=== PATIENT | female | born 1930 | race American Indian/Alaskan Native ===

== ENCOUNTER 2020-05-14 12:37 | Inpatient (IN) | payer MEDICARE, OTHER ==
[~2020-05-14] VITALS: Ht 149.9 cm; Wt 53.1 kg
--- OUTSIDE RECORDS SUMMARY | ~2020-05-14 | XMS | Encounter Summary ---
Demographics + + + | Address | [address] | | | [place] [address] | + + + | Home Phone | | + + + | Preferred Language | Unknown | + + + | Marital Status | | + + + | Restoration Affiliation | Unknown | + + + | Race | Unknown | + + + | Ethnic Group | Unknown | + + + Author + + + | Author | [facility] | | | and [place] | + + + | Organization | [facility] | | | and [place] | + + + | Address | Unknown | + + + | Phone | Unavailable | + + + Support + + +---------+ + | Name | Relationship | Address | Phone | + + +---------+ + | Amado Eller | ECON | Unknown | | + + +---------+ + | Dorizulma FerreiraYasmin | ECON | Unknown | | + + +---------+ + | Helga Hoffman | ECON | Unknown | | + + +---------+ + Care Team Providers + +------+ + | Care Valet Service Attendant Name | Role | Phone | + +------+ + PCP | Unavailable | + +------+ + Encounter Details +--------+ + + + + | Date | Type | Department | Care Team | Description | +--------+ + + + + | 03/11/ | Hospital | [facility] | Conversion | 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[facility] | Transaction, | cardiomyopathies | | | | ECHOCARDIOGRAPHY | Provider Unknown | (HCC) | | | | [address] | | | | | | [place], [place] | (Fax) | | | | | [address] | | | | | | [phone] | | | +--------+ + + + + Social History + +-------+ +--------+------+ | Tobacco Use | Types | Packs/Day | Years | Date | | | | | Used | | + +-------+ +--------+------+ | Never Assessed | | | | | + +-------+ +--------+------+ + + + | Sex Assigned at | Date Recorded | | | | + + + | Not on file | | + + + documented as of this encounter Medications at Time of Discharge + + + +---------+ + + | Medication | Sig | Dispensed | Refills | Start | End Date | | | | | | Date | | + + + +---------+ + + | furosemide (LASIX) | Take 20 mg by mouth. | | 0 | 06/07/20 | | | 20 mg tablet | | | | 14 | | + + + +---------+ + + | glipiZIDE | Take 5 mg by mouth. | | 0 | 06/07/20 | | | (GLUCOTROL) 5 mg | | | | 14 | | | tablet | | | | | | + + + +---------+ + + documented as of this encounter Plan of Treatment Not on filedocumented as of this encounter Procedures + +--------+ + + + | Procedure Name | Priori | Date/Time | Associated Diagnosis | Comments | | | ty | | | | + +--------+ + + + | ECHO COMPLETE | Routin | 03/11/2015 | | Results for this | | | e | 2:39 PM | | procedure are in the | | | | PDT | | results section. | + +--------+ + + + documented in this encounter Results ECHO Complete (03/11/2015 2:39 PM PDT) + + | Specimen | + + | | + + + + + | Impressions | Performed At | + + + | 1. Overall left ventricular systolic function is mildly impaired | | | with, an EF between 45 - 50 %. With apical akinesia. 2. There is | | | moderate pulmonary hypertension. 3. Moderate bi-atrial enlargement. | | + + + + + + | Narrative | Performed At | + + + | Patient Name: ADI ELLER Date of : 1930 | | | Performing Physician: Leandro Main | | | | | | ------REPORT ADDENDED------ INDICATIONS Other | | | cardiomyopathies CONCLUSIONS 1. Overall left | | | ventricular systolic function is mildly impaired with, an EF between | | | 45 - 50 %. With apical akinesia. 2. There is moderate pulmonary | | | hypertension. 3. Moderate bi-atrial enlargement. FINDINGS | | | -------- ECG rhythm: Sinus rhythm. Study: A 2-dimensional | | | transthoracic echocardiogram with m-mode, spectral and color flow | | | Doppler was perfomed. Study: This was a technically adequate study. | | | Left Ventricle: Overall left ventricular systolic function is mildly | | | impaired with, an EF between 45 - 50 %. Left Ventricle: Left | | | Ventricle ejection fraction by m-mode measures 59%. Left Ventricle: | | | The left ventricle is mildly dilated. Left Ventricle: Left | | | ventricular wall thickness is normal. Left Ventricle: The diastolic | | | filling pattern indicates impaired relaxation consistent with mild | | | dysfunction (Grade I), which is normal for the patient's age. Left | | | Ventricle: anterior apex - akinetic; Left Ventricle: apical septum | | | - severely hypokinetic; Left Ventricle: apex - akinetic; Left | | | Ventricle: The remaining left ventricular segments contract normally. | | | Right Ventricle: The right ventricle is normal in size. Right | | | Ventricle: The global wall thickness of the right ventricle is mildly | | | increased measuring between 5 - 10 mm. Right Ventricle: The right | | | ventricular systolic function is normal. Right Ventricle: A | | | flattened D - shaped septum is seen in systole, which is consistent | | | with right ventricular pressure overload. Left Atrium: The left | | | atrium is moderately dilated Left Atrium: , and the LA measures | | | 4.6cm. Right Atrium: The right atrium is mildly enlarged Right | | | Atrium: , and the RA measures 5.3cm. Aortic Valve: The aortic valve | | | is trileaflet and appears structurally normal. Aortic Valve: There is | | | mild aortic valve sclerosis without stenosis. Aortic Valve: The | | | aortic valve is mildly calcified. Aortic Valve: There is moderate | | | aortic regurgitation. Aortic Valve: There is no evidence of aortic | | | stenosis. Mitral Valve: The mitral valve is normal. Mitral Valve: | | | [id number]-[id number] mitral regurgitation is present Mitral Valve: , | | | predominately a centrally directed jet. Mitral Valve: Moderate mitral | | | annular calcification present. Mitral Valve: Mild thickening of the | | | anterior mitral valve leaflet. Mitral Valve: There is mild thickening | | | of the posterior mitral valve leaflet. Tricuspid Valve: The | | | tricuspid valve appears structurally normal. Tricuspid Valve: | | | [id number]-[id number] tricuspid regurgitation present. Tricuspid Valve: | | | There is moderate pulmonary hypertension. Tricuspid Valve: The right | | | ventricular systolic pressure (pulmonary artery systolic pressure), as | | | measured by Doppler, is 47 mmHg + (10 15) = 57 62 mmHg. Pulmonic | | | Valve: The pulmonic valve was not well visualized. Pulmonic Valve: | | | Moderate pulmonic regurgitation. Pericardium: There is no pericardial | | | effusion. Pericardium: No pleural effusion seen. IVC/Hepatic Veins: | | | The IVC is normal size (1.5-2.5cm) and collapses <50% with sniff, | | | consistent with central venous pressures of 10-15mmHg. Mass: No mass | | | visualized Thrombus: No clot visualized Thrombus: No vegetation | | | visualized. MEASUREMENTS LA Diam: 4.62 cm LA | | | Major: 5.40 cm EDV(Teich): 135.04 ml IVSd: 1.01 cm LVIDd: | | | 5.29 cm LVPWd: 1.14 cm LVOT Diam: 1.96 cm %FS: 28.87 % | | | EF(Teich): 55.10 % ESV(Teich): 60.63 ml IVSs: 1.21 cm | | | LVIDs: 3.76 cm LVPWs: 1.97 cm SV(Teich): 74.41 ml RA | | | Major: 5.31 cm RVIDd: 3.33 cm LVEF MOD A2C: 48.12 % SV MOD | | | A2C: 32.87 ml LVEF MOD A4C: 59.18 % SV MOD A4C: 49.67 ml | | | EF Biplane: 57.32 % LVEDV MOD BP: 81.10 ml LVESV MOD BP: | | | 34.61 ml LVEDV MOD A2C: 68.30 ml LVLd A2C: 6.94 cm LVEDV MOD | | | A4C: 83.93 ml LVLd A4C: 7.79 cm LVESV MOD A2C: 35.43 ml | | | LVLs A2C: 6.14 cm LVESV MOD A4C: 34.25 ml LVLs A4C: 6.87 cm | | | CO Biplane: 3.23 l/min HR: 69.53 BPM R-R: 862.88 ms | | | LAESV(A-L): 76.99 ml LAESV Index (A-L): 50.65 ml/m2 LAAs A2C: | | | 21.56 cm2 LAESV A-L A2C: 75.42 ml LALs A2C: 5.23 cm LAAs | | | A4C: 22.01 cm2 LAESV A-L A4C: 72.19 ml LALs A4C: 5.69 cm | | | Ao Diam: 3.12 cm AV Cusp: 1.75 cm LA Diam: 4.25 cm LA/Ao: | | | 1.36 %FS: 31.28 % EDV(Teich): 86.18 ml EF(Teich): 59.34 | | | % ESV(Teich): 35.04 ml IVSd: 1.10 cm IVSs: 1.20 cm | | | LVIDd: 4.36 cm LVIDs: 3.00 cm LVPWd: 1.00 cm LVPWs: | | | 1.40 cm SV(Teich): 51.14 ml D-E Excursion: 1.19 cm E-F Carbon: | | | 0.03 m/s EPSS: 0.96 cm IVC diameter: 2.34 cm IVC | | | collapse: 1.13 cm IVC % collapse: 49.17 % AR Dec Carbon: | | | 2.26 m/s2 AR Dec Time: 1647.45 ms AR maxP.45 mmHg AR | | | PHT: 477.76 ms AR Vmax: 3.72 m/s HR: 70.25 BPM AR maxPG: | | | 59.68 mmHg AR meanP.27 mmHg AR Vmax: 3.86 m/s AR | | | Vmean: 3.19 m/s AR VTI: 163.01 cm ARend P.04 mmHg | | | ARend Vmax: 2.78 m/s HR: 68.73 BPM AV maxP.78 mmHg AV | | | meanP.54 mmHg AV Vmax: 1.39 m/s AV Vmean: 1.03 m/s AV | | | VTI: 32.65 cm SANDOVAL Vmax: 2.13 cm2 SANDOVAL (VTI): 2.55 cm2 LVCI | | | Dopp: 3.79 l/minm2 LVCO Dopp: 5.77 l/min HR: 69.22 BPM | | | LVOT maxP.82 mmHg LVOT meanP.15 mmHg LVSI Dopp: | | | 54.85 ml/m2 LVSV Dopp: 83.37 ml LVOT Vmax: 0.97 m/s LVOT | | | Vmean: 0.69 m/s LVOT VTI: 27.38 cm MCO: 460.25 ms MR | | | maxP.71 mmHg MR Vmax: 4.17 m/s MV A Mc: 1.20 m/s MV | | | DecT: 310.43 ms MV E Mc: 0.81 m/s MV E/A Ratio: 0.67 MV | | | PHT: 92.44 ms MVA By PHT: 2.37 cm2 MV A Dur: 105.36 ms | | | Septal e': 0.03 m/s Septal E/e': 25.66 Lateral e': 0.04 m/s | | | Lateral E/e': 20.25 P Vein A: 0.26 m/s P Vein A Dur: | | | 121.99 ms P Vein D: 0.24 m/s P Vein S/D Ratio: 3.12 P Vein S: | | | 0.77 m/s PAEDP: 18.02 mmHg HR: 75.13 BPM PA maxPG: | | | 7.94 mmHg PA meanP.12 mmHg PA Vmax: 1.40 m/s PA Vmean: | | | 1.09 m/s PA VTI: 52.73 cm PRend P.02 mmHg PRend Vmax: | | | 0.86 m/s HR: 73.60 BPM PV maxP.35 mmHg PV meanPG: | | | 1.77 mmHg PV Vmax: 0.91 m/s PV Vmean: 0.63 m/s PV VTI: | | | 20.44 cm RAP: 15 mmHg RVSP: 61.76 mmHg TR maxP.76 | | | mmHg TR Vmax: 3.41 m/s TV A Mc: 0.51 m/s TV Dec Carbon: | | | 1.27 m/s2 TV Dec Time: 378.04 ms TV E Mc: 0.48 m/s TV E/A | | | Ratio: 0.94 Critical Care Transport Nurse: TS Authenticated by: Leandro | | | Jose David GUNN Report Date/Time: 03-13-2015 08:31:35 | | + + + + + | Procedure Note | + + | Hector, Rad Conversion - 06/16/2019 5:36 AM PDT Patient Name: Latrell ELLER of | | : 1930 Performing Physician: Leandro Main | | ------REPORT | | ADDENDED------INDICATIONS Other cardiomyopathies CONCLUSIONS 1. | | Overall left ventricular systolic function is mildly impaired with, an EF between 45 - | | 50 %. With apical akinesia.2. There is moderate pulmonary hypertension. 3. Moderate | | bi-atrial enlargement. FINDINGS--------ECG rhythm: Sinus rhythm.Study: A 2-dimensional | | transthoracic echocardiogram with m-mode, spectral and color flow Doppler was | | perfomed.Study: This was a technically adequate study.Left Ventricle: Overall left | | ventricular systolic function is mildly impaired with, an EF between 45 - 50 %.Left | | Ventricle: Left Ventricle ejection fraction by m-mode measures 59%.Left Ventricle: The | | left ventricle is mildly dilated.Left Ventricle: Left ventricular wall thickness is | | normal.Left Ventricle: The diastolic filling pattern indicates impaired relaxation | | consistent with mild dysfunction (Grade I), which is normal for the patient's age.Left | | Ventricle: anterior apex - akinetic;Left Ventricle: apical septum - severely | | hypokinetic;Left Ventricle: apex - akinetic;Left Ventricle: The remaining left | | ventricular segments contract normally.Right Ventricle: The right ventricle is normal in | | size.Right Ventricle: The global wall thickness of the right ventricle is mildly | | increased measuring between 5 - 10 mm.Right Ventricle: The right ventricular systolic | | function is normal.Right Ventricle: A flattened D - shaped septum is seen in systole, | | which is consistent with right ventricular pressure overload.Left Atrium: The left | | atrium is moderately dilatedLeft Atrium: , and the LA measures 4.6cm.Right Atrium: The | | right atrium is mildly enlargedRight Atrium: , and the RA measures 5.3cm.Aortic Valve: | | The aortic valve is trileaflet and appears structurally normal.Aortic Valve: There is | | mild aortic valve sclerosis without stenosis.Aortic Valve: The aortic valve is mildly | | calcified.Aortic Valve: There is moderate aortic regurgitation.Aortic Valve: There is no | | evidence of aortic stenosis.Mitral Valve: The mitral valve is normal.Mitral Valve: | | Sqcj-fw-ktldozjm mitral regurgitation is presentMitral Valve: , predominately a | | centrally directed jet.Mitral Valve: Moderate mitral annular calcification | | present.Mitral Valve: Mild thickening of the anterior mitral valve leaflet.Mitral Valve: | | There is mild thickening of the posterior mitral valve leaflet.Tricuspid Valve: The | | tricuspid valve appears structurally normal.Tricuspid Valve: Qkdj-bb-oghdschu tricuspid | | regurgitation present.Tricuspid Valve: There is moderate pulmonary | | hypertension.Tricuspid Valve: The right ventricular systolic pressure (pulmonary artery | | systolic pressure), as measured by Doppler, is 47 mmHg + (10 15) = 57 62 mmHg.Pulmonic | | Valve: The pulmonic valve was not well visualized.Pulmonic Valve: Moderate pulmonic | | regurgitation.Pericardium: There is no pericardial effusion.Pericardium: No pleural | | effusion seen.IVC/Hepatic Veins: The IVC is normal size (1.5-2.5cm) and collapses <50% | | with sniff, consistent with central venous pressures of 10-15mmHg.Mass: No mass | | visualizedThrombus: No clot visualizedThrombus: No vegetation visualized. | | MEASUREMENTS LA Diam: 4.62 cmLA Major: 5.40 cmEDV(Teich): 135.04 | | mlIVSd: 1.01 cmLVIDd: 5.29 cmLVPWd: 1.14 cmLVOT Diam: 1.96 cm%FS: 28.87 | | %EF(Teich): 55.10 %ESV(Teich): 60.63 mlIVSs: 1.21 cmLVIDs: 3.76 cmLVPWs: 1.97 | | cmSV(Teich): 74.41 mlRA Major: 5.31 cmRVIDd: 3.33 cmLVEF MOD A2C: 48.12 %SV MOD | | A2C: 32.87 mlLVEF MOD A4C: 59.18 %SV MOD A4C: 49.67 mlEF Biplane: 57.32 %LVEDV | | MOD BP: 81.10 mlLVESV MOD BP: 34.61 mlLVEDV MOD A2C: 68.30 mlLVLd A2C: 6.94 | | cmLVEDV MOD A4C: 83.93 mlLVLd A4C: 7.79 cmLVESV MOD A2C: 35.43 mlLVLs A2C: 6.14 | | cmLVESV MOD A4C: 34.25 mlLVLs A4C: 6.87 cmCO Biplane: 3.23 l/minHR: 69.53 | | BPMR-R: 862.88 msLAESV(A-L): 76.99 mlLAESV Index (A-L): 50.65 ml/m2LAAs A2C: | | 21.56 [id number] A-L A2C: 75.42 mlLALs A2C: 5.23 cmLAAs A4C: 22.01 [id number] A-L A4C: | | 72.19 mlLALs A4C: 5.69 cmAo Diam: 3.12 cmAV Cusp: 1.75 cmLA Diam: 4.25 | | cmLA/Ao: 1.36%FS: 31.28 %EDV(Teich): 86.18 mlEF(Teich): 59.34 %ESV(Teich): | | 35.04 mlIVSd: 1.10 cmIVSs: 1.20 cmLVIDd: 4.36 cmLVIDs: 3.00 cmLVPWd: 1.00 | | cmLVPWs: 1.40 cmSV(Teich): 51.14 mlD-E Excursion: 1.19 cmE-F Carbon: 0.03 | | m/sEPSS: 0.96 cmIVC diameter: 2.34 cmIVC collapse: 1.13 cmIVC % collapse: 49.17 | | %AR Dec Carbon: 2.26 m/s2AR Dec Time: 1647.45 msAR maxP.45 mmHgAR PHT: | | 477.76 msAR Vmax: 3.72 m/sHR: 70.25 BPMAR maxP.68 mmHgAR meanP.27 | | mmHgAR Vmax: 3.86 m/Loretta Vmean: 3.19 m/Loretta VTI: 163.01 cmARend P.04 | | mmHgARend Vmax: 2.78 m/sHR: 68.73 BPMAV maxP.78 mmHgAV meanP.54 mmHgAV | | Vmax: 1.39 m/Claudia Vmean: 1.03 m/Claudia VTI: 32.65 cmAVA Vmax: 2.13 cm2AVA (VTI): | | 2.55 [id number] Dopp: 3.79 [id number] Dopp: 5.77 l/minHR: 69.22 BPMLVOT maxPG: | | 3.82 mmHgLVOT meanP.15 mmHgLVSI Dopp: 54.85 ml/m2LVSV Dopp: 83.37 mlLVOT Vmax: | | 0.97 m/sLVOT Vmean: 0.69 m/sLVOT VTI: 27.38 cmMCO: 460.25 msMR maxP.71 | | mmHgMR Vmax: 4.17 m/sMV A Mc: 1.20 m/sMV DecT: 310.43 msMV E Mc: 0.81 m/sMV | | E/A Ratio: 0.67MV PHT: 92.44 msMVA By PHT: 2.37 cm2MV A Dur: 105.36 msSeptal e': | | 0.03 m/sSeptal E/e': 25.66Lateral e': 0.04 m/sLateral E/e': 20.25P Vein A: | | 0.26 m/sP Vein A Dur: 121.99 msP Vein D: 0.24 m/sP Vein S/D Ratio: 3.12P Vein S: | | 0.77 m/sPAEDP: 18.02 mmHgHR: 75.13 BPMPR maxP.94 mmHgPR meanP.12 mmHgPR | | Vmax: 1.40 m/sPR Vmean: 1.09 m/sPR VTI: 52.73 cmPRend P.02 mmHgPRend Vmax: | | 0.86 m/sHR: 73.60 BPMPV maxP.35 mmHgPV meanP.77 mmHgPV Vmax: 0.91 | | m/sPV Vmean: 0.63 m/sPV VTI: 20.44 cmRAP: 15 mmHgRVSP: 61.76 mmHgTR maxPG: | | 46.76 mmHgTR Vmax: 3.41 m/sTV A Mc: 0.51 m/sTV Dec Carbon: 1.27 m/s2TV Dec Time: | | 378.04 msTV E Mc: 0.48 m/sTV E/A Ratio: 0.94 Critical Care Transport Nurse: TSAuthenticated by: | | Leandro Main MDReport Date/Time: 03-13-2015 08:31:35 IMPRESSION: 1. Overall left | | ventricular systolic function is mildly impaired with, an EF between 45 - 50 %. With | | apical akinesia.2. There is moderate pulmonary hypertension. 3. Moderate bi-atrial | | enlargement. | |IVSs: 1.21 cm | |LVIDs: 3.76 cm | |LVPWs: 1.97 cm | |SV(Teich): 74.41 ml | |RA Major: 5.31 cm | |RVIDd: 3.33 cm | |LVEF MOD A2C: 48.12 % | |SV MOD A2C: 32.87 ml | |LVEF MOD A4C: 59.18 % | |SV MOD A4C: 49.67 ml | |EF Biplane: 57.32 % | |LVEDV MOD BP: 81.10 ml | |LVESV MOD BP: 34.61 ml | |LVEDV MOD A2C: 68.30 ml | |LVLd A2C: 6.94 cm | |LVEDV MOD A4C: 83.93 ml | |LVLd A4C: 7.79 cm | |LVESV MOD A2C: 35.43 ml | |LVLs A2C: 6.14 cm | |LVESV MOD A4C: 34.25 ml | |LVLs A4C: 6.87 cm | |CO Biplane: 3.23 l/min | |HR: 69.53 BPM | |R-R: 862.88 ms | |LAESV(A-L): 76.99 ml | |LAESV Index (A-L): 50.65 ml/m2 | |LAAs A2C: 21.56 cm2 | |LAESV A-L A2C: 75.42 ml | |LALs A2C: 5.23 cm | |LAAs A4C: 22.01 cm2 | |LAESV A-L A4C: 72.19 ml | |LALs A4C: 5.69 cm | |Ao Diam: 3.12 cm | |AV Cusp: 1.75 cm | |LA Diam: 4.25 cm | |LA/Ao: 1.36 | |%FS: 31.28 % | |EDV(Teich): 86.18 ml | |EF(Teich): 59.34 % | |ESV(Teich): 35.04 ml | |IVSd: 1.10 cm | |IVSs: 1.20 cm | |LVIDd: 4.36 cm | |LVIDs: 3.00 cm | |LVPWd: 1.00 cm | |LVPWs: 1.40 cm | |SV(Teich): 51.14 ml | |D-E Excursion: 1.19 cm | |E-F Carbon: 0.03 m/s | |EPSS: 0.96 cm | |IVC diameter: 2.34 cm | |IVC collapse: 1.13 cm | |IVC % collapse: 49.17 % | |AR Dec Carbon: 2.26 m/s2 | |AR Dec Time: 1647.45 ms | |AR maxP.45 mmHg | |AR PHT: 477.76 ms | |AR Vmax: 3.72 m/s | |HR: 70.25 BPM | |AR maxP.68 mmHg | |AR meanP.27 mmHg | |AR Vmax: 3.86 m/s | |AR Vmean: 3.19 m/s | |AR VTI: 163.01 cm | |ARend P.04 mmHg | |ARend Vmax: 2.78 m/s | |HR: 68.73 BPM | |AV maxP.78 mmHg | |AV meanP.54 mmHg | |AV Vmax: 1.39 m/s | |AV Vmean: 1.03 m/s | |AV VTI: 32.65 cm | |SANDOVAL Vmax: 2.13 cm2 | |SANDOVAL (VTI): 2.55 cm2 | |LVCI Dopp: 3.79 l/minm2 | |LVCO Dopp: 5.77 l/min | |HR: 69.22 BPM | |LVOT maxP.82 mmHg | |LVOT meanP.15 mmHg | |LVSI Dopp: 54.85 ml/m2 | |LVSV Dopp: 83.37 ml | |LVOT Vmax: 0.97 m/s | |LVOT Vmean: 0.69 m/s | |LVOT VTI: 27.38 cm | |MCO: 460.25 ms | |MR maxP.71 mmHg | |MR Vmax: 4.17 m/s | |MV A Mc: 1.20 m/s | |MV DecT: 310.43 ms | |MV E Mc: 0.81 m/s | |MV E/A Ratio: 0.67 | |MV PHT: 92.44 ms | |MVA By PHT: 2.37 cm2 | |MV A Dur: 105.36 ms | |Septal e': 0.03 m/s | |Septal E/e': 25.66 | |Lateral e': 0.04 m/s | |Lateral E/e': 20.25 | |P Vein A: 0.26 m/s | |P Vein A Dur: 121.99 ms | |P Vein D: 0.24 m/s | |P Vein S/D Ratio: 3.12 | |P Vein S: 0.77 m/s | |PAEDP: 18.02 mmHg | |HR: 75.13 BPM | |PA maxP.94 mmHg | |PA meanP.12 mmHg | |PA Vmax: 1.40 m/s | |PA Vmean: 1.09 m/s | |PA VTI: 52.73 cm | |PRend P.02 mmHg | |PRend Vmax: 0.86 m/s | |HR: 73.60 BPM | |PV maxP.35 mmHg | |PV meanP.77 mmHg | |PV Vmax: 0.91 m/s | |PV Vmean: 0.63 m/s | |PV VTI: 20.44 cm | |RAP: 15 mmHg | |RVSP: 61.76 mmHg | |TR maxP.76 mmHg | |TR Vmax: 3.41 m/s | |TV A Mc: 0.51 m/s | |TV Dec Carbon: 1.27 m/s2 | |TV Dec Time: 378.04 ms | |TV E Mc: 0.48 m/s | |TV E/A Ratio: 0.94 | | | |Critical Care Transport Nurse: TS | |Authenticated by: Leandro Main MD | |Report Date/Time: 03-13-2015 08:31:35 | | | |IMPRESSION: | |1. Overall left ventricular systolic function is mildly impaired with, an EF between 45 - 5 0 %. With apical akinesia. | |2. There is moderate pulmonary hypertension. 3. Moderate bi-atrial enlargement. | + + documented in this encounter Visit Diagnoses + + | Diagnosis | + + | Other primary cardiomyopathies | + + documented in this encounter"
--- OUTSIDE RECORDS SUMMARY | ~2020-05-14 | XMS | Encounter Summary ---
Demographics + + + | Address | [address] | | | [place] [address] | + + + | Home Phone | | + + + | Preferred Language | Unknown | + + + | Marital Status | | + + + | Uatsdin Affiliation | Unknown | + + + | Race | Unknown | + + + | Ethnic Group | Unknown | + + + Author + + + | Author | [facility] | | | and [place] | + + + | Organization | [facility] | | | and [place] | + + + | Address | Unknown | + + + | Phone | Unavailable | + + + Support + + +---------+ + | Name | Relationship | Address | Phone | + + +---------+ + | Amado Eller | ECON | Unknown | | + + +---------+ + | Dori Ferreiracomb | ECON | Unknown | | + + +---------+ + | Helga Ferre[place] | ECON | Unknown | | + + +---------+ + Care Team Providers + +------+ + | Care Payroll Accounting Specialist Name | Role | Phone | + +------+ + | Anthony Atkins DO | PCP | | + +------+ + Encounter Details +--------+ + + + + | Date | Type | Department | Care Team | Description | +--------+ + + + + | 04/10/ | Hospital | [facility] | Sebastián Julianna, | | | 2016 | Encounter | [facility] | [facility] [address] | | | | | PHYSICAL THERAPY | [place] | | | | | [address] | [address] | | | | | [place] [address] | | | | | | [phone] | | | +--------+ + + + + Social History + +-------+ +--------+------+ | Tobacco Use | Types | Packs/Day | Years | Date | | | | | Used | | + +-------+ +--------+------+ | Current Every Day | | 0.25 | 30 | | | Smoker | | | | | + +-------+ [...] + + + +---------+ + + | aspirin 81 mg | Take 1 tablet by | 30 | 0 | 04/09/20 | | | chewable tablet | mouth Daily. | tablet | | 16 | | + + + +---------+ + + | atorvaSTATin | Take 1 tablet by | 30 | 0 | 04/09/20 | | | (LIPITOR) 20 mg | mouth nightly. | tablet | | 16 | | | tablet | | | | | | + + + +---------+ + + | carvedilol (COREG) | Take 1 tablet by | 60 | 0 | 04/09/20 | | | 3.125 mg tablet | mouth 2 times daily | tablet | | 16 | | | | (with breakfast & | | | | | | | dinner). | | | | | + + + +---------+ + + | cyanocobalamin | Take 1 tablet by | 30 | 0 | 04/09/20 | | | (VITAMIN B-12) 1000 | mouth Daily. | tablet | | 16 | | | MCG tablet | | | | | | + + + +---------+ + + | docusate sodium | Take 1 capsule by | 30 | 0 | 04/09/20 | | | (COLACE) 250 MG | mouth Daily. | capsule | | 16 | | | capsule | | | | | | + + + +---------+ + + | furosemide (LASIX) | Take 20 mg by mouth. | | 0 | 06/07/20 | | | 20 mg tablet | | | | 14 | | + + + +---------+ + + | furosemide (LASIX) | Take 1 tablet by | 50 | 0 | 04/09/20 | | | 80 mg tablet | mouth Daily. | tablet | | 16 | | + + + +---------+ + + | glipiZIDE | Take 5 mg by mouth. | | 0 | 06/07/20 | | | (GLUCOTROL) 5 mg | | | | 14 | | | tablet | | | | | | + + + +---------+ + + documented as of this encounter Plan of Treatment Not on filedocumented as of this encounter Visit Diagnoses Not on filedocumented in this encounter"
--- OUTSIDE RECORDS SUMMARY | ~2020-05-14 | XMS | Encounter Summary ---
Demographics + + + | Address | [address] | | | [place] [address] | + + + | Home Phone | | + + + | Preferred Language | Unknown | + + + | Marital Status | | + + + | Confucianist Affiliation | Unknown | + + + | Race | Unknown | + + + | Ethnic Group | Unknown | + + + Author + + + | Author | [facility] | | | and [place] | + + + | Organization | [facility] | | | and [...] Team Providers + +------+ + | Care Planting Supervisor Name | Role | Phone | + +------+ + | Anthony Atkins DO | PCP | | + +------+ + Encounter Details +--------+ + + + + | Date | Type | Department | Care Team | Description | +--------+ + + + + | 05/07/ | Orders Only | [facility] | Conversion | | | 2015 | | NEPHROLOGY ÁNGEL | Transaction, | | | | | [address] | Provider Unknown | | | | | [place] | | | | | | [address] | (Fax) | | | | | [phone] | | | +--------+ + + + [...] | + +--------+ + + + | IRON AND IRON | Routin | 05/07/2015 | | Results for this | | BINDING CAPACITY | e | 12:00 AM | | procedure are in the | | | | PDT | | results section. | + +--------+ + + + | LIPID PANEL | Routin | 05/07/2015 | | Results for this | | | e | 12:00 AM | | procedure are in the | | | | PDT | | results section. | + +--------+ + + + | PARATHYROID HORMONE, | Routin | 05/07/2015 | | Results for this | | INTACT AND CALCIUM | e | 12:00 AM | | procedure are in the | | | | PDT | | results section. | + +--------+ + + + | CBC NO DIFFERENTIAL | Routin | 05/07/2015 | | Results for this | | | e | 12:00 AM | | procedure are in the | | | | PDT | | results section. | + +--------+ + + + | URIC ACID | Routin | 05/07/2015 | | Results for this | | | e | 12:00 AM | | procedure are in the | | | | PDT | | results section. | + +--------+ + + + | MAGNESIUM | Routin | 05/07/2015 | | Results for this | | | e | 12:00 AM | | procedure are in the | | | | PDT | | results section. | + +--------+ + + + | HEMOGLOBIN A1C | Routin | 05/07/2015 | | Results for this | | | e | 12:00 AM | | procedure are in the | | | | PDT | | results section. | + +--------+ + + + | FERRITIN | Routin | 05/07/2015 | | Results for this | | | e | 12:00 AM | | procedure are in the | | | | PDT | | results section. | + +--------+ + + + | RENAL FUNCTION PANEL | Routin | 05/07/2015 | | Results for this | | | e | 12:00 AM | | procedure are in the | | | | PDT | | results section. | + +--------+ + + + documented in this encounter Results CBC no Differential (05/07/2015 12:00 AM PDT) + + + + + + | Component | Value | Ref Range | Performed | Pathologist | | | | | At | Signature | + + + + + + | WBC | 8.0 | 4.0 - 11.0 10 | EXTERNAL | | | | | | LAB | | + + + + + + | Non- | 3.72 (A) | 3.8 - 5.2 10 | EXTERNAL | | | Red Blood | | | LAB | | | Cells | | | | | | Counted | | | | | + + + + + + | Hemoglobin | 9.6 (A) | 12 - 16 g/dL | EXTERNAL | | | | | | LAB | | + + + + + + | Hematocrit, | 28.8 (A) | 35 - 45 % | EXTERNAL | | | POC | | | LAB | | + + + + + + | MCV | 77.4 (A) | 81 - 99 fL | EXTERNAL | | | | | | LAB | | + + + + + + | MCH | 25.8 (A) | 27 - 33 pg | EXTERNAL | | | | | | LAB | | + + + + + + | MCHC | 33.3 | 30 - 36 g/dL | EXTERNAL | | | | | | LAB | | + + + + + + | RDW-CV | 15.8 (A) | 10.5 - 15 % | EXTERNAL | | | | | | LAB | | + + + + + + | Platelet | 238 | 140 - 440 K/ L | EXTERNAL | | | Count | | | LAB | | | Plasma | | | | | + + + + + + | MPV | | fL | EXTERNAL | | | | | | LAB | | + + + + + + + + | Specimen | + + | | + + + +---------+ + + | Performing | Address | City/State/Zipcode | Phone Number | | Organization | | | | + +---------+ + + | EXTERNAL LAB | | | | + +---------+ + + Iron and Iron Binding Capacity (05/07/2015 12:00 AM PDT) + +---------+ + + + | Component | Value | Ref Range | Performed | Pathologist | | | | | At | Signature | + +---------+ + + + | Iron | 35 (A) | 37 - 160 ug/dL | EXTERNAL | | | | | | LAB | | + +---------+ + + + | Iron | 7.3 (A) | 20 - 55 % | EXTERNAL | | | Saturation | | | LAB | | + +---------+ + + + | TIBC | 477 (A) | 245 - 400 ug/dL | EXTERNAL | | | | | | LAB | | + +---------+ + + + + + | Specimen | + + | Blood specimen | | (specimen) | + + + +---------+ + + | Performing | Address | City/State/Zipcode | Phone Number | | Organization | | | | + +---------+ + + | EXTERNAL LAB | | | | + +---------+ + + Parathyroid Hormone, Intact and Calcium (05/07/2015 12:00 AM PDT) + +---------+ + + + | Component | Value | Ref Range | Performed | Pathologist | | | | | At | Signature | + +---------+ + + + | PTH Intact | 52.57 | 15 - 65 | EXTERNAL | | | | | | LAB | | + +---------+ + + + | Calcium | 8.3 (A) | 8.4 - 10.2 | EXTERNAL | | | | | | LAB | | + +---------+ + + + + + | Specimen | + + | Blood specimen | | (specimen) | + + + +---------+ + + | Performing | Address | City/State/Zipcode | Phone Number | | Organization | | | | + +---------+ + + | EXTERNAL LAB | | | | + +---------+ + + Uric Acid (05/07/2015 12:00 AM PDT) + +---------+ + + + | Component | Value | Ref Range | Performed | Pathologist | | | | | At | Signature | + +---------+ + + + | Uric Acid | 7.3 (A) | 2.3 - 6.6 | EXTERNAL | | | | | | LAB | | + +---------+ + + + + + | Specimen | + + | Blood specimen | | (specimen) | + + + +---------+ + + | Performing | Address | City/State/Zipcode | Phone Number | | Organization | | | | + +---------+ + + | EXTERNAL LAB | | | | + +---------+ + + Magnesium (05/07/2015 12:00 AM PDT) + +-------+ + + + | Component | Value | Ref Range | Performed | Pathologist | | | | | At | Signature | + +-------+ + + + | Magnesium | 2.3 | 1.7 - 2.5 mg/dL | EXTERNAL | | | | | | LAB | | + +-------+ + + + + + | Specimen | + + | Blood specimen | | (specimen) | + + + +---------+ + + | Performing | Address | City/State/Zipcode | Phone Number | | Organization | | | | + +---------+ + + | EXTERNAL LAB | | | | + +---------+ + + Hemoglobin A1C (05/07/2015 12:00 AM PDT) + +-------+ + + + | Component | Value | Ref Range | Performed | Pathologist | | | | | At | Signature | + +-------+ + + + | Hemoglobin | 6.9 | % | EXTERNAL | | | A1c | | | LAB | | + +-------+ + + + + + | Specimen | + + | Blood specimen | | (specimen) | + + + +---------+ + + | Performing | Address | City/State/Zipcode | Phone Number | | Organization | | | | + +---------+ + + | EXTERNAL LAB | | | | + +---------+ + + Ferritin (05/07/2015 12:00 AM PDT) + + + + + + | Component | Value | Ref Range | Performed | Pathologist | | | | | At | Signature | + + + + + + | Ferritin, | 10.21 (A) | 13 - 150 ng/mL | EXTERNAL | | | External | | | LAB | | + + + + + + + + | Specimen | + + | Blood specimen | | (specimen) | + + + +---------+ + + | Performing | Address | City/State/Zipcode | Phone Number | | Organization | | | | + +---------+ + + | EXTERNAL LAB | | | | + +---------+ + + Renal Function Panel (05/07/2015 12:00 AM PDT) + + + + + + | Component | Value | Ref Range | Performed | Pathologist | | | | | At | Signature | + + + + + + | Glucose, | 84 | 70 - 100 mg/dL | EXTERNAL | | | Fasting | | | LAB | | + + + + + + | BUN | 35 (A) | 6 - 23 mg/dL | EXTERNAL | | | | | | LAB | | + + + + + + | Creatinine | 1.87 (A) | 0.70 - 1.11 | EXTERNAL | | | | | mg/dL | LAB | | + + + + + + | PHOSPHORUS | | mg/dL | EXTERNAL | | | | | | LAB | | + + + + + + | Albumin | 3.5 | 3.5 - 5.0 | EXTERNAL | | | | | | LAB | | + + + + + + | Na | 136 | 132 - 143 | EXTERNAL | | | | | mmol/L | LAB | | + + + + + + | K | 5.3 (A) | 3.6 - 5.1 | EXTERNAL | | | | | mmol/L | LAB | | + + + + + + | Cl | 110 | 95 - 112 mmol/L | EXTERNAL | | | | | | LAB | | + + + + + + | CO2 | 18 (A) | 19 - 31 mmol/L | EXTERNAL | | | | | | LAB | | + + + + + + | Anion Gap | 16.3 | 7 - 21 mmol/L | EXTERNAL | | | | | | LAB | | + + + + + + | eGFR if not | | | EXTERNAL | | | | | | LAB | | | [place] | | | | | + + + + + + | Phosphorus, | 3.8 | 2.5 - 5.0 | EXTERNAL | | | Inorganic | | | LAB | | + + + + + + | BUN/Creatin | 18.7 | 6.0 - 28.6 | EXTERNAL | | | ine Ratio | | | LAB | | + + + + + + | Calcium | 8.3 (A) | 8.4 - 10.2 | EXTERNAL | | | | | mg/dL | LAB | | + + + + + + | Estimated | 26 (A) | 60 mg/dL | EXTERNAL | | | GFR | | | LAB | | + + + + + + + + | Specimen | + + | Blood specimen | | (specimen) | + + + +---------+ + + | Performing | Address | City/State/Zipcode | Phone Number | | Organization | | | | + +---------+ + + | EXTERNAL LAB | | | | + +---------+ + + Lipid Panel (05/07/2015 12:00 AM PDT) + + + + + + | Component | Value | Ref Range | Performed | Pathologist | | | | | At | Signature | + + + + + + | Cholesterol | 148 | 200 mg/dL | EXTERNAL | | | | | | LAB | | + + + + + + | Triglycerid | 193 (A) | 30 - 105 mg/dL | EXTERNAL | | | es | | | LAB | | + + + + + + | HDL | 28.9 (A) | 40 mg/dl | EXTERNAL | | | | | | LAB | | + + + + + + | LDL, | 81 | 100 mg/dL | EXTERNAL | | | Calculated | | | LAB | | + + + + + + | LDl/HDL | | | EXTERNAL | | | Ratio | | | LAB | | + + + + + + | Chol/HDL | 5.1 (A) | 4.44 | EXTERNAL | | | Ratio | | | LAB | | + + + + + + | VLDL | 39 | 4 - 40 mg/dL | EXTERNAL | | | | | | LAB | | + + + + + + | Non HDL | 119 | 130 | EXTERNAL | | | Chol. | | | LAB | | | (LDL+VLDL) | | | | | + + + + + + + + | Specimen | + + | Blood specimen | | (specimen) | + + + +---------+ + + | Performing | Address | City/State/Zipcode | Phone Number | | Organization | | | | + +---------+ + + | EXTERNAL LAB | | | | + +---------+ + + documented in this encounter Visit Diagnoses Not on filedocumented in this encounter"
--- OUTSIDE RECORDS SUMMARY | ~2020-05-14 | XMS | Encounter Summary ---
Demographics + + + | Address | [address] | | | [place] [address] | + + + | Home Phone | | + + + | Preferred Language | Unknown | + + + | Marital Status | | + + + | Pentecostalism Affiliation | Unknown | + + + | Race | Unknown | + + + | Ethnic Group | Unknown | + + + Author + + + | Author | [facility] | | | and [place] | + + + | Organization | [facility] | | | [...] Team Providers + +------+ + | Care Public Health Social Worker Name | Role | Phone | + +------+ + | Anthony Atkins DO | PCP | | + +------+ + Encounter Details +--------+ + + + + | Date | Type | Department | Care Team | Description | +--------+ + + + + | 09/23/ | Hospital | [facility] | MiguelZana morgan | | | 2016 - | Encounter | [facility] | Nixon Krueger MD [address] | | | | [address]ISION | [address] | | | 09/25/ | | [address] | [place] [address] | | | 2015 | | [place], [place] | [phone] | | | | | [address] | | | | | | [phone] | | | +--------+ + + + [...] + + documented as of this encounter Last Filed Vital Signs + + + + + | Vital Sign | Reading | Time Taken | Comments | + + + + + | Blood Pressure | 105/53 | 09/25/2016 11:27 AM | | | | | PST | | + + + + + | Pulse | 76 | 09/25/2016 11:27 AM | | | | | PST | | + + + + + | Temperature | 36.7 C (98.1 F) | 09/25/2016 11:27 AM | | | | | PST | | + + + + + | Respiratory Rate | 17 | 09/25/2016 11:27 AM | | | | | PST | | + + + + + | Oxygen Saturation | - | - | | + + + + + | Inhaled Oxygen | - | - | | | Concentration | | | | + + + + + | Weight | 55.2 kg (121 lb 11 | 09/25/2016 11:27 AM | | | | oz) | PST | | + + + + + | Height | 149.9 cm (4' 11") | 09/25/2016 11:27 AM | | | | | PST | | + + + + + | Body Mass Index | 24.58 | 09/25/2016 11:27 AM | | | | | PST | | + + + + + documented in this encounter Discharge Summaries Anival Son MD - 09/25/2016 11:16 AM PSTFormatting of this note might be differ ent from the original. Discharge Summaries by Anival Son MD at 09/25/16 1116 Author: Anival Son MD Service: Hospitalist Author Type: Physician Filed: 09/26/16 1433 Date of Service: 09/25/166 Status: Addendum Textile Clothing And Footwear Mechanic: Anival Son MD (Physician) Related Notes: Original Note by Anival Son MD (Physician) filed at 09/25/[address] [facility] Service: Hospitalist Discharge Summary Date of Admission: 09/23/2016 Date of Discharge: Discharge Provider: Anival Son MD Treatment Team: Consulting Physician: Cyrus Gross MD Admitting Provider: Zana Rivera MD Discharge Diagnoses: Principal Problem: SOB (shortness of breath) on exertion Active Problems: DM2 (diabetes mellitus, type 2) (HCC) Anemia, iron deficiency Systolic CHF, chronic (HCC) CKD (chronic kidney disease) stage 4, GFR 15-29 ml/min (HCC) Coronary artery disease involving [place]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 Pulmonary emphysema (HCC) Smoker Resolved Problems: * No resolved hospital problems. * BRIEF HISTORY OF PRESENTATION: Alexsandra Eller is a 85 y.o. female who History of tobacco abuse, COPD, chronic systol ic congestive heart failure, iron deficiency anemia secondary to CKD and AV malformations re quiring cauterization, nonadherence to medicine, coronary artery disease, presented to the [facility] with chief complaint of shortness of breath. Prior to being admitted to the hospital she was diagnosed with acute systolic congestive he art failure and was prescribed Lasix at home. Patient reports that some of her symptoms impr mir after the initiation of Lasix, and on her followup appointment with her PCP she was fou nd to be anemic, hemoglobin of 8.2, and she was referred to [facility]. In [facility] her hemoglobin was between 8 and 9. Patient complained of some chest discomfort and diaphoresis. EKG showed some T-wave inversion in the lateral lead s. Troponin was mildly elevated at 0.5, but after transfusion of 2 units her chest discomfor t had improved significantly. The patient is currently asymptomatic. She has no peripheral e annmarie. She denies any orthopnea or PND or dyspnea on exertion, but patient is a very poor his marcia so I do not completely rely on her information. But clinically she appears to be euvo lemic. Patient is very noncompliant, extremely noncompliant with her medicines, Again, multi ple physicians have advised her to take all her medicines as prescribed. For her iron deficiency anemia, Dr. Gross evaluated the patient in the hospital and recommended outpatient followup with Dr. Gibson. There was no urgent need for colonoscopy. He believes that the most likely source for her iron deficiency anemia was AV malformations. H e advised the patient to take iron supplementation and then, if in spite of that she becomes anemic, she will need additional endoscopic procedures. For her chronic systolic heart failure, she is on optimum medical therapy with beta-brittnee s, SURESH inhibitors. I have added Lasix to her regimen. She needs to follow up with cardiology as an outpatient. PAtient did receive 450mg IV iron in the hospital and is prescribed Po iron Prescriptions prior to admission Medication Sig Dispense Refill Last Dose Ascorbic Acid (VITAMIN C) 500 MG tablet Take 1 tablet by mouth daily. 30 tablet 11 furosemide (LASIX) 20 MG tablet Take 20 mg by mouth daily. Taking glipiZIDE (GLUCOTROL) 5 MG tablet Take 5 mg by mouth 2 (two) times daily before meals. Taking lisinopril (ZESTRIL) 5 MG tablet Take 5 mg by mouth daily. Taking DISCHARGE EXAM Vital Signs: BP 129/60 mmHg | Pulse 86 | Temp(Src) 97.3 F (36.3 C) (Oral) | Resp 16 | Ht 1.499 m (4' 11") | Wt 55.2 kg (121 lb 11.1 oz) | BMI 24.57 kg/m2 | SpO2 99% | ? No Physical Exam General Appearance: awake, alert, oriented, in no acute distress Eyes: No gross abnormalities. Neck: neck- supple, no mass, non-tender Heart: Heart sounds are normal. Regular rate and rhythm without murmur, gallop or rub. Abdomen: Soft, non-tender, normal bowel sounds. No bruits, organomegaly or masses. Extremities: Extremities warm to touch, pink, with no edema. DATA Recent Labs Lab 09/25/16 0753 09/25/16 0158 09/24/16 1545 HGB 10.9* 10.8* 8.4* HCT 33.5* 33.5* 26.4* Recent Labs Lab 09/24/16 0412 NA 140 K 4.4 CL 108 CO2 22* BUN 31* CREATININE 2.0* Phosphorus: Lab Results Component Value Date PHOS 4.4 09/24/2016 Invalid input(s): LABALBU Recent Labs Lab 09/24/16 0412 MG 2.3 No results for input(s): AMYLASE in the last 168 hours. No results for input(s): PHART, PO2ART, EXZ5SPV, J0JBXVEJ, BEART in the last 168 hours. Recent Labs Lab 09/23/16 2253 INR 1.0 No results for input(s): TSH, T3FREE, FREET4 in the last 168 hours. Recent Labs Lab 09/24/16 2344 09/24/16 1737 09/24/16 1203 TROPONINI 0.282* 0.399* 0.499* Radiology No results found. Disposition: Home Condition: Stable Code Status: Full Code No discharge procedures on file. Follow [place]: [place] [address] [place] [address] In 1 week Ritesh Gibson MD [address] [facility] [address] In 2 weeks Leandro Main MD [address] [facility] [id number] In 1 month Medication List START taking these medications atorvastatin 20 MG tablet QTY: 30 tablet Refills: 11 Commonly known as: LIPITOR Take 1 tablet by mouth nightly. budesonide-formoterol 160-4.5 MCG/ACT inhaler QTY: 1 Inhaler Refills: 12 Commonly known as: SYMBICORT Inhale 2 puffs into the lungs 2 (two) times daily. cyanocobalamin 1000 MCG tablet QTY: 30 tablet Refills: 11 Commonly known as: VITAMIN B-12 Take 1 tablet by mouth daily. CHANGE how you take these medications carvedilol 6.25 MG tablet QTY: 60 tablet Refills: 3 Commonly known as: COREG Take 1 tablet by mouth 2 (two) times daily with meals. What changed: - medication strength - how much to take ferrous sulfate (65 FE) 324 (65 FE) MG EC tablet QTY: 30 tablet Refills: 3 Take 1 tablet by mouth daily with breakfast. Take on empty stomach What changed: when to take this * lisinopril 5 MG tablet Refills: 0 Commonly known as: ZESTRIL What changed: Another medication with the same name was added. Make sure you understand ho w and when to take each. * lisinopril 10 MG tablet QTY: 15 tablet Refills: 11 Commonly known as: ZESTRIL Take 0.5 tablets by mouth daily. What changed: You were already taking a medication with the same name, and this prescripti on was added. Make sure you understand how and when to take each. * Notice: This list has 2 medication(s) that are the same as other medications prescribed for you. Read the directions carefully, and ask your doctor or other care provider to revie w them with you. CONTINUE taking these medications furosemide 20 MG tablet Refills: 0 Commonly known as: LASIX glipiZIDE 5 MG tablet Refills: 0 Commonly known as: GLUCOTROL vitamin C 500 MG tablet QTY: 30 tablet Refills: 11 Take 1 tablet by mouth daily. Where to Get Your Medications You can get these medications from any pharmacy Bring a paper prescription for each of these medications - atorvastatin 20 MG tablet - budesonide-formoterol 160-4.5 MCG/ACT inhaler - carvedilol 6.25 MG tablet - cyanocobalamin 1000 MCG tablet - ferrous sulfate (65 FE) 324 (65 FE) MG EC tablet - lisinopril 10 MG tablet Discharge took 35 minutes, to include final examination, discussion of admission, and prepa ration of prescriptions, instructions for on-going care, follow-up and documentation of disc harge summary. Anival Son MD 09/25/2016 11:16 AM documented in this encounter Medications at Time of Discharge + + + +---------+ + + | Medication | Sig | Dispensed | Refills | Start | End Date | | | | | | Date | | + + + +---------+ + + | ascorbic acid | Take 500 mg by | | 0 | 09/25/20 | | | (VITAMIN C) 500 mg | mouth. | | | 16 | | | tablet | | | | | | + + + +---------+ + + | aspirin 81 mg | Take 1 tablet by | 30 | 0 | 04/09/20 | | | chewable tablet | mouth Daily. | tablet | | 16 | | + + + +---------+ + + | atorvaSTATin | Take 20 mg by mouth. | | 0 | 20 | | | (LIPITOR) 20 mg | | | | 16 | | | tablet | | | | | | + + + +---------+ + + | atorvaSTATin | Take 1 tablet by | 30 | 0 | 04/09/20 | | | (LIPITOR) 20 mg | mouth nightly. | tablet | | 16 | | | tablet | | | | | | + + + +---------+ + + | | Inhale 2 puffs into | | 0 | 09/25/20 | | | budesonide-formotero | the lungs. | | | 16 | | | l (SYMBICORT) | | | | | | | 160-4.5 mcg/puff | | | | | | | inhaler | | | | | | + [...] + + | carvedilol (COREG) | Take 6.25 mg by | | 0 | 09/25/20 | | | 6.25 mg tablet | mouth. | | | 16 | | + + + +---------+ + + | cyanocobalamin | Take 1,000 mcg by | | 0 | 09/25/20 | | | (VITAMIN B-12) 1,000 | mouth. | | | 16 | | | mcg tablet | | | | | | [...] + + + +---------+ + + | ferrous sulfate | Take by mouth. | | 0 | 09/25/20 | | | 324 (65 Fe) MG EC | | | | 16 | | | tablet [...] + + + +---------+ + + | lisinopril | Take 10 mg by mouth. | | 0 | 09/25/20 | | | (PRINIVIL, ZESTRIL) | | | | 16 | | | 10 mg tablet | | | | | | + + + +---------+ + + documented as of this encounter Progress Notes Conversion Transaction, Provider Unknown - 09/25/2016 2:42 PM PSTFormatting of this note m ight be different from the original. Progress Notes by Trevor Yung RN at 09/25/161441 Author: Trevor Yung RN Service: (none) Author Type: Registered Nurse Filed: 09/25/161442 Date of Service: 09/25/161441 Status: Signed Textile Clothing And Footwear Mechanic: Trevor Yung RN (Registered Nurse) Pt educated on medications, prescriptions, follow ups and s/s of symptomatic anemia and CHF . Pt escorted to [facility] entrance. Trevor Yung RN onver dave Transaction, Provider Unknown - 09/25/2016 5:18 AM PST Progress Notes by Shasta Osorio RN at 09/25/16517 Author: Shasta Osorio RN Service: (none) Author Type: Registered Nurse Filed: 09/25/16524 Date of Service: 09/25/16517 Status: Signed Text[employer] Clothing And Footwear Mechanic: Shasta Osorio RN (Registered Nurse) Pt received 2 units of blood, tolerated well with no complications. H&H taken after infusio n completed was 10.8/33.5. Pt's BP at 0400 slightly elevated at 143/66. No other acute paz es since previous shift assessment. Shasta Osorio RN onver dave Transaction, Provider Unknown - 09/24/2016 6:30 PM PST Progress Notes by Trevor Yung RN at 09/24/161829 Author: Trevor Yung RN Service: (none) Author Type: Registered Nurse Filed: 09/24/161829 Date of Service: 09/24/161829 Status: Signed Text[employer] Clothing And Footwear Mechanic: Trevor Yung RN (Registered Nurse) No acute changes this shift. Pt medicated for pain x1. Trevor Yung RN Maria G Tobias MD - 09/24/2016 11:52 AM PSTFormatting of this note might be different from the or iginal. Progress Notes by Yung Steven MD at 09/24/16 1152 Author: Yung Steven MD Service: Hospitalist Author Type: Physician Filed: 09/24/16 1153 Date of Service: 09/24/16 1152 Status: Signed Text[employer] Cl[employer] And Footwear Mechanic: Yung Steven MD (Physician) Came back to see patient She denies chest pain, arm pain or claminess. Troponin is slightly up EKG shows some high lateral T wave inversions ?type 2 NE Will cont to trend enzymes and cont ASA, beta brittnee, lipitor Not a candidate for anticoagulation given anemia and GI bleed. Will transfuse two units of blood in view of cardiac injury onversion Transactio n, Provider Unknown - 09/24/2016 10:03 AM PST Case Management by Kaia Early RN at 09/24/16 1003 Author: Kaia Early RN Service: (none) Author Type: Registered Nurse Filed: 09/24/16 1009 Date of Service: 09/24/16 100 Status: Signed Text[employer] Clothing And Footwear Mechanic: Kaia Early RN (Registered Nurse) Met with patient and granddaughter. Explained CM role and discussed discharge planning. Karolyn rubio is a 85 yr old female admitted for symptomatic anemia and SOB. Pt states she is independe nt with all ADLs. She uses a 4WW in community only and the [facility] shuttle for transportatio n. Denies outpt medical services. She states she goes to the [facility] health clinic for any services needed. PCP confirmed. Pt is aware CM will follow for D/C needs as they arise dur ing hospitalization. 09/24/16 1002 Discharge Planning Evaluation Admitting Diagnosis symptomatic anemia/SOB Readmission No Living Arrangements Alone Support Systems Children;Family members Type of Residence Private residence House type House-1 story Steps to enter (ramp) Independent with ADL's Yes Independent with Mobility Yes Mental Status Oriented Power of Forge He[employer] No (declined paperwork) Anticipated Discharge Plan Post Acute Care Needs None at this time Plan communicated to patient/family Yes Resources Financial concerns No Transportation issues No Patient/Family concerns No Prescription Plan Yes Previous home health equipment Yes (4WW) Pt is an 85 y.o. female who lives [place] at [place]. [place] and visits every day. Pt denies concerns regarding needs being met at home. Pt's granddaughter in room at time of assessment and states famil y is available at any time. Patient's PCP is: Anthony Atkins MD Patient's insurance: Medicare/[employer] Coverage concerns: None Medication coverage/concerns: None Community resources utilized / needed: None at this time Assistance in transportation: Pt's daughter, Amado, will provide transportation home. [place] [phone] Anticipated DCP: Home Kaia Comfort onver dave Ni, Provider Unknown - 09/24/2016 9:52 AM PST Therapy Progress Note by Eleonora Thompson PT at 09/24/16951 Author: Eleonora Thompson PT Service: (none) Author Type: Physical Therapist Filed: 09/24/16951 Date of Service: 09/24/16951 Status: Signed Text[employer] Footwear Mechanic: Eleonora Thompson PT (Physical Therapist) 09/24/16 0800 PT Last Visit PT Received On 09/24/16 Reason for Treatment Deconditioning Requires PT Follow Up No Follow up PT Only? No PT Eval/Reassessment Date 09/24/16 Assistance Required Independent Research Hydraulic Engineer Needed No Home Environment Type of Home Home one story Home Exterior Layout Entry steps none Home Interior Layout Lives on main level with bedroom/bathroom Bathroom Shower/Tub Tub/shower unit Bathroom Toilet Standard Bathroom Equipment Grab bars in shower/bath;Shower stool Bathroom Accessibility Not accessible Home Equipment Walker 4 wheeled Additional Comments no supplemental O2 needs here or in the home Prior Function Level of [place] Modified independent with functional mobility (use of 4WW) Falls in Past Year No Lives With Alone (granddaughter stays 2 days/wk; daughter visits daily) Receives Help From Family ADL Assistance Independent Home ADL's Other (comment) (family/friends assist) RUE Assessment RUE Assessment WFL LUE Assessment LUE Assessment WFL RLE Assessment RLE Assessment WFL LLE Assessment LLE Assessment WFL Cognition Overall Cognitive Status WFL Orientation Level Oriented Sensation Light Touch No apparent deficits Vision-Basic Assessment Current Vision No visual deficits Visual History Corrective eye surgery Plan Treatment/Interventions Discharge skilled PT services Progress Reached highest level of independence with therapy PT Frequency Evaluation only Care Duration (# of days) 1 # of days Recommendation Recommendations Prior Setting Equipment Recommended None PT Ready for Discharge Yes Recommendation Comments Patient at baseline and safe to return home from a functional stand point. 09/24/16 0800 PT Last Visit PT Received On 09/24/16 Reason for Treatment Deconditioning Requires PT Follow Up No Follow up PT Only? No PT Eval/Reassessment Date 09/24/16 Assistance Required Independent Research Hydraulic Engineer Needed No Other Comments Comments Pt chart review/evaluation/POC performed/produced w/patient and granddaughter. Bettina roldan resides on an [facility] and takes the shuttle bus daily from her home [facility] where she [facility] up her 4[place] to returnin home on the shuttle bus. The patient does not use 4W in the home, it stays at the car nikolai t at the [employer]. Patient is indep, cognitively intact and not in need os skilled need. PT to be dc'ed. Cognition Overall Cognitive Status WFL Orientation Level Oriented Bed Mobility Supine to Sit Independent Sit to Supine Independent Scooting Independent Transfers Sit to/from Stand Independent (from/to bed) Mobility Ambulation Assistance Independent Maximal Ambulation Distance (feet) 40 Total Ambulation Distance (feet) 40 Distance limited by? (no need to assess further) Pattern WFL Assistive Device None Balance Balance (appropriate balance throughout eval) Activity Tolerance Activity Tolerance Patient tolerated treatment without report of fatigue Nurse Made Aware RN Aware of participation Plan Treatment/Interventions Discharge skilled PT services Progress Reached highest level of independence with therapy PT Frequency Evaluation only Care Duration (# of days) 1 # of days Recommendation Recommendations Prior Setting Equipment Recommended None PT Ready for Discharge Yes Recommendation Comments Patient at baseline and safe to return home from a functional stand point. Maria G Tobias MD - 09/24/2016 9:51 AM PSTFormatting of this note might be different from the or iginal. Progress Notes by Yung Steven MD at 09/24/16950 Author: Yung Steven MD Service: Hospitalist Author Type: Physician Filed: 09/24/16 1009 Date of Service: 09/24/16950 Status: Signed Textile Clothing And Footwear Mechanic: Yung Steven MD (Physician) [facility] Service: Hospitalist Progress Note Hospital Day: LOS: 1 day Post-Op Day: * No surgery found * SUBJECTIVE Patient Summary: 85 yo with a PMHx of CAD, Mod pulm HTN, COPD, DM type 2, CKD stage 4, DM type 2, history of AVM. Subjective: Patient states she is feeling better. Very poor historian, unable to confi rm or refute history of melena despite multiple attempts. She thinks she may have had dark s tools when she was on iron pills and states it was stopped but cannot remember when. States she has had heart attacks, falls and so many health problems she cannot remember events as t hey unfold. Her daughter was in the room quite concerned saying she doesn't look right. For the last hour been having right arm discomfort and claminess but no chest pains. Scheduled Medications vitamin C 500 mg Oral Daily atorvastatin 20 mg Oral Nightly budesonide-formoterol 2 puff Inhalation 2 times daily carvedilol 3.125 mg Oral BID WC cyanocobalamin 1,000 mcg Oral Daily ferrous sulfate (65 FE) 65 mg of iron Oral BID furosemide 20 mg Oral Daily glipiZIDE 5 mg Oral BID AC insulin lispro (human) 0-10 Units Subcutaneous TID AC insulin lispro (human) 0-5 Units Subcutaneous Nightly ipratropium-albuterol 1 puff Inhalation 4x Daily iron sucrose 200 mg Intravenous Daily lisinopril 5 mg Oral Daily sodium chloride (PF) 10 mL Intravenous Q8H Continuous Infusions dextrose PRN Medications acetaminophen OR acetaminophen, dextrose, dextrose, dextrose, glucagon, glucagon, ondan setron OR ondansetron, polyethylene glycol, zolpidem OBJECTIVE Vital Signs: BP 124/59 mmHg | Pulse 91 | Temp(Src) 98.1 F (36.7 C) (Oral) | Resp 17 | Ht 1.499 m (4' 11") | Wt 55.2 kg (121 lb 11.1 oz) | BMI 24.57 kg/m2 | SpO2 100% | ? No Physical Exam Constitutional: She is oriented to person, place, and time. Cardiovascular: Normal rate and regular rhythm. Pulmonary/Chest: Effort normal and breath sounds normal. Abdominal: Soft. Bowel sounds are normal. Musculoskeletal: She exhibits no edema. Right arm examined no tenderness on palpation anywhere but she states it hurts Neurological: She is alert and oriented to person, place, and time. DATA CBC: Lab Results Component Value Date WBC 8.0 05/07/2015 RBC 3.72* 05/07/2015 HGB 8.4* 09/24/2016 HCT 26.8* 09/24/2016 MCV 77.4* 05/07/2015 MCH 25.8* 05/07/2015 MCHC 33.3 05/07/2015 RDW 15.8* 05/07/2015 PLT 238 05/07/2015 MPV 9.2 05/22/2014 DIFFTYPE AUTOMATED 05/22/2014 CMP: Lab Results Component Value Date NA 140 09/24/2016 K 4.4 09/24/2016 CL 108 09/24/2016 CO2 22* 09/24/2016 ANIONGAP 14 09/24/2016 GLUF 92 09/24/2016 BUN 31* 09/24/2016 CREATININE 2.0* 09/24/2016 BCR 16 09/24/2016 CA 8.1* 09/24/2016 CA 8.3* 05/07/2015 PROT 6.6 12/07/2014 ALB 3.5 05/07/2015 GLOB 2.8 12/07/2014 BILITOT 0.4 12/07/2014 ALP 81 12/07/2014 AST 11* 12/07/2014 ALT 6* 12/07/2014 EGFR 25* 09/24/2016 PROBLEM LIST Principal Problem: SOB (shortness of breath) on exertion Active Problems: DM2 (diabetes mellitus, type 2) (HCC) Anemia, iron deficiency Systolic CHF, chronic (HCC) CKD (chronic kidney disease) stage 4, GFR 15-29 ml/min (HCC) Coronary artery disease involving [place]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 Pulmonary emphysema (HCC) Smoker ASSESSMENT & PLAN 1. Severe anemia 2/2 iron deficiency and CKD It does not appear that she has followed up with nephrology Start power Will need repeat outpatient endoscopy(inpatient if active bleed noted) Discussed need for compliance with doctor's visit 2. Claminess right arm pain Rule out ACS STAT EKG and cardiac enzymes 3. 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 Cont GDMT with coreg, lisinopril, lipitor, lasix 4. COPd Still smokes but no wheezing on exam 5. CKD stage 4 6. Dm type 2 Controlled 7. DVT prophylaxis Cont SCds and TEds no anticoagulation for now 8. Non compliance Floor time exceeded 40 mins reviewing charts and evaluating patient Disposition: Code Status: Full Code Yung Steven MD 09/24/2016 onversion Transactio n, Provider Unknown - 09/24/2016 8:42 AM PST Progress Notes by Yumiko Kelly RPH at 09/24/16841 Author: Yumiko Kelly RPH Service: (none) Author Type: Pharmacist Filed: 09/24/16841 Date of Service: 09/24/16841 Status: Signed Textile Clothing And Footwear Mechanic: Yumiko Kelly RPH (Pharmacist) crcl ~ 15.9 ml/min based on scr of 2.0 No dosage adjustments needed for current medications. onver dave Transaction, Provider Unknown - 09/24/2016 4:11 AM PST Nurse Progress Note by Cj Persaud RN at 09/24/16410 Author: Cj Persaud RN Service: (none) Author Type: Registered Nurse Filed: 09/24/1628 Date of Service: 09/24/16410 Status: Addendum [employer] Foot[employer] Mechanic: Cj Persaud RN (Registered Nurse) Related Notes: Original Note by Cj Persaud RN (Registered Nurse) filed at 09/24/16 062 6 Patient received second unit of PRBC this shift, Hgb 8.2 Hct 25.3 this AM. Patient reports smoking 4 cigarettes/day for 20+ years and is not ready to quit. Reports dyspnea on exertion . Cj Persaud RN onver dave Transaction, Provider Unknown - 09/24/2016 1:12 AM PST Progress Notes by Chante Newby Altaf at 09/24/16111 Author: Chante Newby RPH Service: (none) Author Type: Pharmacist Filed: 09/24/16111 Date of Service: 09/24/16111 Status: Signed [employer] Foot[employer] Mechanic: Chante Newby RPH (Pharmacist) Clinical Pharmacy Note: Renal Monitoring Alexsandra Eller 85 y.o. female Currently there is no serum creatinine. Pharmacy will adjust medications, if necessary, in AM when labs are reported. Chante Newby PharmD 09/24/2016 1:12 AM docume nted in this encounter H&P Notes Zana Rivera MD - 09/23/2016 8:39 PM PSTFormatting of this note might be diff erent from the original. H&P by Zana Rivera MD at 09/23/162038 Author: Zana Rivera MD Service: Hospitalist Author Type: Physician Filed: 09/24/16 1415 Date of Service: 09/23/162038 Status: Addendum [employer] Foot[employer] Mechanic: Zana Rivera MD (Physician) Related Notes: Original Note by Zana Rivera MD (Physician) filed at 09/24/[address] [facility] Service: Hospitalist Admission History & Physical Date of Admission: 09/23/2016 Requesting Physician: Dr. Herman, Emergency Department [facility] Reason for Admission: Symptomatic anemia/SOB History Obtained From: patient, chart review, Quality of history: poor CHIEF COMPLAINT: SOB x 1 week HISTORY OF PRESENT ILLNESS The patient is a 85 y.o. 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 Main and Dr. Gibson. And it appears that the patient has not been taking her vitamin B 12 or her iron or her Coreg or her glipizide, she may not even have been taking her aspirin as the patient stated that it had been stopped when she got started on her increased diuret ic pills. As well per note from [facility] the patient had refused to go for follow-up after her h ospitalization on 04/2016. As well she had been discharged on Lipitor 20 mg daily, aspirin 81 mg daily, carvedilol 3.125 twice a day, cyanocobalamin 1000 g daily, Colace 250 mg daily, and Lasix 80 mg daily from her last admission at [facility] but on reviewing her m edications with her she is not taking her cholesterol pill her carvedilol her cyanocobalamin and she is only taking her water pill according to her. I am not sure about this patient's compliance. Patient had last been hospitalized on 04/06/2016- at [facility] for acute c ongestive heart failure secondary to systolic dysfunction and ischemic cardiomyopathy and sy mptomatic anemia. One week prior to admission the patient had been started on higher dose La six because her congestive heart failure had gotten worse and on the day of admission had be en following up with her primary care physician's office after the one week of increased Las ix, and per note from Dr. Herman at [facility], although the patient denies this , it looked like she had been very weak and about to fall at the primary care physician's of [facility] and they had also done CBC which showed hemoglobin of 5.9 with a previous hemoglobin be ing 9.4 on 04/09/2016, she also stated that her rectal guiac "slightly positive "patient was g iven 2 units of packed RBC and given her history of AVM was transferred to [facility] for higher l evel of care. by the time admitting hospitalist saw the patient as she only complained of shortness of b reath, denied chest pain, denied any bloody vomitus or melanotic stools or bloody stools sin ce at least April or 2015. REVIEW OF SYSTEMS ROS obtained from patient, chart review. A comprehensive review of systems was negative except for Items mentioned in history of pre sent illness Past Medical History Diagnosis Date Diabetes mellitus, type II ([facility]) Smoker Hyperkalemia 05/02/2014 Acidosis, metabolic 05/03/2014 Orthopnea 05/01/2014 Hypoxia 05/01/2014 Elevated troponin 05/01/2014 Dyspnea 05/01/2014 Acute systolic CHF (congestive heart failure) ([facility]) 05/02/2014 Hyponatremia 05/03/2014 Hyperphosphatemia 05/03/2014 LEANNA (acute kidney injury) ([facility]) 05/01/2014 CKD (chronic kidney disease) stage 4, GFR 15-29 ml/min ([facility]) 07/16/2014 Asymptomatic hyperuricemia 05/22/2014 DM2 (diabetes mellitus, type 2) ([facility]) 05/01/2014 Past Surgical History Procedure Laterality Date section Lasik Colonoscopy with egd N/A 05/07/2014 Procedure: COLONOSCOPY W/ EGD; Surgeon: Ritesh Gibson MD; Location: [facility] ENDOSCOPY; Se rvice: Gastroenterology; Laterality: N/A; Immunizations: Influenza: Up-to-date Pneumoccocal: Up-to-date; approximate date: Over the last 2 years No Known Allergies Prescriptions prior to admission Medication Sig Dispense Refill Last Dose Ascorbic Acid (VITAMIN C) 500 MG tablet Take 1 tablet by mouth daily. 30 tablet 11 aspirin EC 81 MG EC tablet Take 81 mg by mouth daily with breakfast. Taking carvedilol (COREG) 25 MG tablet Take 1 tablet by mouth 2 (two) times daily with meals. 60 tablet 6 Taking ferrous sulfate, 65 FE, 324 (65 FE) MG EC tablet Take 1 tablet by mouth 2 (two) times d aily. Take on empty stomach 60 tablet 6 furosemide (LASIX) 20 MG tablet Take 20 mg by mouth daily. Taking glipiZIDE (GLUCOTROL) 5 MG tablet Take 5 mg by mouth 2 (two) times daily before meals. Taking lisinopril (ZESTRIL) 5 MG tablet Take 5 mg by mouth daily. 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 Ongoing smoker with about 5 to 10 pack year smoking history (a pack would last her about a week). PHYSICAL EXAM BP 157/75 mmHg | Pulse 106 | Temp(Src) 98.4 F (36.9 C) (Oral) | Resp 16 | Ht 1.499 m (4 ' 11") | Wt 55 kg (121 lb 4.1 oz) | BMI 24.48 kg/m2 General Appearance: Alert, cooperative, no distress, appears stated age Head: Normocephalic, without obvious abnormality, atraumatic Eyes: PERRL, conjunctiva/corneas clear, EOM's intact, Ears: Normal external ear canals, both ears Nose: Nares normal, septum midline, mucosa normal, no drainage or sinus tenderness Throat: Lips, mucosa, and tongue normal; teeth and gums normal Neck: Supple, symmetrical, trachea midline, no adenopathy; thyroid: no enlargement/tenderness/nodules; no carotid bruit or JVD Back: Symmetric, no curvature, ROM normal, no CVA tenderness Lungs: occl basal rales and whezing good air entry Chest Wall: No tenderness or deformity Heart: Regular rate and rhythm, S1 and S2 normal, no murmur, rub or gallop Abdomen: Soft, non-tender, bowel sounds active all four quadrants, no masses, no organomegaly Extremities: Extremities normal, atraumatic, no cyanosis or edema Pulses: 2+ and symmetric all extremities Skin: Skin color, texture, turgor normal, no rashes or lesions Lymph nodes: Cervical, supraclavicular, and axillary nodes normal Neurologic: CNII-XII intact, normal strength, sensation and reflexes throughout DATA CBC: Lab Results Component Value Date WBC 8.0 05/07/2015 RBC 3.72* 05/07/2015 HGB 9.6* 05/07/2015 HCT 28.8* 05/07/2015 MCV 77.4* 05/07/2015 MCH 25.8* 05/07/2015 MCHC 33.3 05/07/2015 RDW 15.8* 05/07/2015 PLT 238 05/07/2015 MPV 9.2 05/22/2014 DIFFTYPE AUTOMATED 05/22/2014 CMP: Lab Results Component Value Date NA 136 05/07/2015 K 5.3* 05/07/2015 CL 110 05/07/2015 CO2 18* 05/07/2015 ANIONGAP 16.3 05/07/2015 GLUF 84 05/07/2015 BUN 35* 05/07/2015 CREATININE 1.87* 05/07/2015 BCR 18.7 05/07/2015 CA 8.3* 05/07/2015 CA 8.3* 05/07/2015 PROT 6.6 12/07/2014 ALB 3.5 05/07/2015 GLOB 2.8 12/07/2014 BILITOT 0.4 12/07/2014 ALP 81 12/07/2014 AST 11* 12/07/2014 ALT 6* 12/07/2014 EGFR 26* 05/07/2015 Calcium: No results found for: CALCIUM Magnesium: Lab Results Component Value Date MG 2.3 05/07/2015 Phosphorus: Lab Results Component Value Date PHOS 3.7 12/07/2014 PT/INR: Lab Results Component Value Date INR 1.0 05/01/2014 PTT: Lab Results Component Value Date APTT 30 05/02/2014 [APTT} U/A: Lab Results Component Value Date CLARITYU CLEAR 05/22/2014 LEUKOCYTESUR NEGATIVE 05/22/2014 NITRITE NEGATIVE 05/22/2014 UROBILINOGEN 0.2 05/22/2014 UPRO 30* 05/22/2014 PHUR 5.5 05/22/2014 BLOODU NEGATIVE 05/22/2014 KETONES NEGATIVE 05/22/2014 BILIRUBINUR NEGATIVE 05/22/2014 GLUCOSEU NEGATIVE 05/22/2014 HgBA1c: Lab Results Component Value Date HGBA1C 6.9 05/07/2015 LABGLYC 169 05/02/2014 TSH: No results found for: TSH, TSHNEO No results found. PROBLEM LIST Principal Problem: SOB (shortness of breath) on exertion Active Problems: Localized arteriovenous malformations of intestinal tract Coronary artery disease involving [place] coronary artery Pulmonary emphysema (HCC) Smoker DM2 (diabetes mellitus, type 2) ([facility]) Anemia, iron deficiency Systolic CHF, chronic ([facility]) CKD (chronic kidney disease) stage 4, GFR 15-29 ml/min ([facility]) ASSESSMENT & PLAN Patient Active Hospital Problem List: SOB (shortness of breath) on exertion (09/23/2016) Assessment: A combination of the patient's COPD as well as anemia and ischemic cardiomyop athy and congestive heart failure Plan: Patient has been given 2 units of packed RBC at [facility], I will cont inue to monitor hemoglobin and hematocrit will need to make sure that HP is more than 12 to ensure to ensure good oxygenation of her tissues. OT and PT consult, no heparin for deep vei n thrombosis prophylaxis. Localized arteriovenous malformations of intestinal tract (09/23/2016) Assessment: In the cecum with according the patient no bleeding I believe the patient's a nemia is chronic and from her iron deficiency as well as her CK D Plan: continue to monitor for bleeding and fecal blood 3, I discussed the patient initi ally with Dr. Gibson who had seen her before he recommended calling GI education manager and I did discu ss the patient with Dr. gross whorecommended continuing to watch for acute bleeding and he could be consulted at that time, however it looks likely that the patient can follow up with GI on an outpatient basis, if there is no bleeding during this hospital stay as the patient has not really followed cardiology or GI recently. Coronary artery disease involving [place] coronary artery (09/23/2016) Assessment: No history of chest pain Plan: Continue Coreg 3.125 daily Lipitor 20 mg daily, lisinopril 5 mg daily DM2 (diabetes mellitus, type 2) ([facility]) (05/01/2014) Assessment: According the patient she has not been taking her glyburide her last HbA1c wa s 6.9 on 05/07/2015 in [facility]. Plan: We will repeat HbA1c, restart glyburide, diabetic diet, insulin sliding scale. Anemia, iron deficiency as well as vitamin b12 deficiency (05/02/2014) Assessment: With the patient not taking her iron pills and her vitamin B12 pills Plan: Resume ferrous sulfate 65 bid as well as cyanocobalamin 1000 g daily Systolic CHF, chronic ([facility]) (05/22/2014) Assessment: I believe the patient's shortness of breath is more from her anemia rather th an her congestive heart failure Plan: Given 2 units of packed RBC and continue to follow hemoglobin and hematocrit is abo ve CKD (chronic kidney disease) stage 4, GFR 15-29 ml/min ([facility]) (07/16/2014) Assessment: Stable the patient had been seeing Dr. Perry but has not seeN him since 2014 Plan: Avoid nephrotoxic agents, continue to monitor BMP with the patient being on diureti c. COPD/continuing smoker Assessment: Not in exacerbation Plan: The patient has not had inhaled steroids or Combivent will start her on that during t his hospitalization, told her to try to stop smoking. I explained radiology and lab findings, plan of care and management to patient at bedside, told her somebody else from the hospitalist service will see patient later. Patient verbal ized understanding and agreement with plan of care and did not have any more questions for paul weathers after my interaction with her. More than 70 minutes spent on admitting this patient face t o face at bedside, taking history and physical examination, more than 65% of this spent on e xplaining plan of care to patient at bedside, chart review,formulating a plan and placing or ders coordinating care with other providers well as Computerized [employer] Operator. Other recomme ndations for management of this patient will be dependent upon the patient's clinical course . Inpatient, patient will require minimum of 2 night stay due to complexity of patient's medi andrea conditions, and need to stabilize patient's underlying conditions Disposition: Admit as Inpatient to Acute Care Floor Dictation software, [employer], used which may contain error for similar sounding words even af ter review. Personal communication requested for any clarification. Portions of this chart may have been copied from previous notes for continuity of care. Disposition: ?HOme Code Status: Full Code Primary Care Physician: LOIS Rivera MD 09/23/2016 documented in this encounter Consult Notes Cyrus Gross MD - 09/24/2016 11:05 AM PSTFormatting of this note might be differ ent from the original. Consult* by Cyrus Gross MD at 09/24/16 1103 Author: Cyrus Gross MD Service: Gastroenterology Author Type: Physician Filed: 10/01/16 1835 Date of Service: 09/24/161104 Status: Signed [employer] Foot[employer] Mechanic: Cyrus Gross MD (Physician) Related Notes: Original Note by Cyrus Gross MD (Physician) filed at 09/24/[address] [facility] Service: Gastroenterology Initial Consult Note Date of Admission: 09/23/2016 Reason for Consultation: Anemia, positive stool occult blood Requesting Physician: Dr. Rivera, Hospitalist History Obtained From: patient, chart review CHIEF COMPLAINT: Weakness HISTORY OF PRESENT ILLNESS The patient is 85 y.o. female with significant past medical history of Coronary artery dise ase, moderate pulmonary hypertension, diabetes mellitus, chronic kidney disease. Starting a couple of weeks ago, the patient had shortness of breath and leg swelling. A week ago she wa s evaluated by her primary care doctor. She was diagnosed with pulmonary edema. The dose of her water pill was increased. The patient continued to have shortness of breath, fatigue, an d weakness. She was evaluated by her primary care doctor yesterday. The patient was found to have anemia with hemoglobin of 5.7. The patient was sent to [facility]. B ecause of the severe anemia, the patient was transferred to [facility] f or further evaluation and treatment. I was called for GI consult. From her GI history, the p atjamar was evaluated by Dr. Gibson in May 2014 for iron-deficiency anemia. The patient underw ent EGD and colonoscopy. The EGD was relatively normal. The colonoscopy showed cecal AVM whi ch was treated with cautery, and sigmoid diverticulosis. The patient was put on iron supplem ents since. About 6 months ago, the patient complained to her primary care that she had darnell k-colored stool. Her primary care doctor then stopped iron supplements. The patient has not had black-colored stool since. She also denies having rectal bleeding, or hematemesis. REVIEW OF SYSTEMS Review of Systems Constitutional: Positive for activity change and fatigue. Negative for fever, chills and ap petite change. HENT: Negative for ear pain and facial swelling. Eyes: Negative for discharge and itching. Respiratory: Positive for shortness of breath. Negative for cough. Cardiovascular: Negative for chest pain and palpitations. Gastrointestinal: See H&P Genitourinary: Negative for dysuria, hematuria and difficulty urinating. Musculoskeletal: Negative for back pain, arthralgias and neck pain. Sharp pain in her left, right arm and left abdomen. Skin: Negative for color change and rash. Neurological: Negative for dizziness, weakness and headaches. Hematological: Negative for adenopathy. Does not bruise/bleed easily. Psychiatric/Behavioral: Negative for confusion and agitation. Past Medical History Diagnosis Date Diabetes mellitus, type II ([facility]) Smoker Hyperkalemia 05/02/2014 Acidosis, metabolic 05/03/2014 Orthopnea 05/01/2014 Hypoxia 05/01/2014 Elevated troponin 05/01/2014 Dyspnea 05/01/2014 Acute systolic CHF (congestive heart failure) ([facility]) 05/02/2014 Hyponatremia 05/03/2014 Hyperphosphatemia 05/03/2014 LEANNA (acute kidney injury) ([facility]) 05/01/2014 CKD (chronic kidney disease) stage 4, GFR 15-29 ml/min ([facility]) 07/16/2014 Asymptomatic hyperuricemia 05/22/2014 DM2 (diabetes mellitus, type 2) ([facility]) 05/01/2014 Coronary artery disease involving [place] coronary artery 09/23/2016 SOB (shortness of breath) on exertion 09/23/2016 Localized arteriovenous malformations of intestinal tract 09/23/2016 Pulmonary emphysema ([facility]) 09/23/2016 Past Surgical History Procedure Laterality Date section Lasik Colonoscopy with egd N/A 05/07/2014 Procedure: COLONOSCOPY W/ EGD; Surgeon: Ritesh Gibson MD; Location: [facility] ENDOSCOPY; rvice: Gastroenterology; Laterality: N/A; No Known Allergies Prescriptions prior to admission Medication Sig Dispense Refill Last Dose Ascorbic Acid (VITAMIN C) 500 MG tablet Take 1 tablet by mouth daily. 30 tablet 11 carvedilol (COREG) 25 MG tablet Take 1 tablet by mouth 2 (two) times daily with meals. 60 tablet 6 Taking ferrous sulfate, 65 FE, 324 (65 FE) MG EC tablet Take 1 tablet by mouth 2 (two) times d aily. Take on empty stomach 60 tablet 6 More than a month at Unknown time furosemide (LASIX) 20 MG tablet Take 20 mg by mouth daily. Taking glipiZIDE (GLUCOTROL) 5 MG tablet Take 5 mg by mouth 2 (two) times daily before meals. Taking lisinopril (ZESTRIL) 5 MG tablet Take 5 mg by mouth daily. Taking Scheduled Medications vitamin C 500 mg Oral Daily atorvastatin 20 mg Oral Nightly budesonide-formoterol 2 puff Inhalation 2 times daily carvedilol 3.125 mg Oral BID WC cyanocobalamin 1,000 mcg Oral Daily ferrous sulfate (65 FE) 65 mg of iron Oral BID furosemide 20 mg Oral Daily glipiZIDE 5 mg Oral BID AC insulin lispro (human) 0-10 Units Subcutaneous TID AC insulin lispro (human) 0-5 Units Subcutaneous Nightly ipratropium-albuterol 1 puff Inhalation 4x Daily iron sucrose 200 mg Intravenous Daily lisinopril 5 mg Oral Daily sodium chloride (PF) 10 mL Intravenous Q8H Continuous Infusions dextrose PRN Medications acetaminophen OR acetaminophen, dextrose, dextrose, dextrose, glucagon, glucagon, ondan setron OR ondansetron, polyethylene glycol, zolpidem Family History Problem Relation Age of Onset Heart disease Neg Hx Diabetes Daughter History Smoking status Current Every Day Smoker -- 0.25 packs/day for 20 years Types: Cigarettes Smokeless tobacco Not on file History Alcohol Use Yes Comment: "rarely" PHYSICAL EXAM Vital Signs: BP 124/59 mmHg | Pulse 91 | Temp(Src) 98.1 F (36.7 C) (Oral) | Resp 17 | Ht 1.499 m (4' 11") | Wt 55.2 kg (121 lb 11.1 oz) | BMI 24.57 kg/m2 | SpO2 100% | ? No Physical Exam Constitutional: She is oriented to person, place, and time. She appears well-developed and well-nourished. HENT: Head: Normocephalic and atraumatic. Eyes: EOM are normal. Pupils are equal, round, and reactive to light. Neck: Normal range of motion. Neck supple. Cardiovascular: Normal rate and regular rhythm. Pulmonary/Chest: Effort normal and breath sounds normal. Abdomina/Gl: Soft. Bowel sounds are normal. She exhibits no distension. There is no tendern ess. Genitourinary: Brown solid stool in the rectal vault. Musculoskeletal: Normal range of motion. Neurological: She is alert and oriented to person, place, and time. Skin: Skin is warm and dry. Psychiatric: She has a normal mood and affect. Her behavior is normal. DATA CBC: Lab Results Component Value Date WBC 8.0 05/07/2015 RBC 3.72* 05/07/2015 HGB 8.4* 09/24/2016 HCT 26.8* 09/24/2016 MCV 77.4* 05/07/2015 MCH 25.8* 05/07/2015 MCHC 33.3 05/07/2015 RDW 15.8* 05/07/2015 PLT 238 05/07/2015 MPV 9.2 05/22/2014 DIFFTYPE AUTOMATED 05/22/2014 CMP: Lab Results Component Value Date NA 140 09/24/2016 K 4.4 09/24/2016 CL 108 09/24/2016 CO2 22* 09/24/2016 ANIONGAP 14 09/24/2016 GLUF 92 09/24/2016 BUN 31* 09/24/2016 CREATININE 2.0* 09/24/2016 BCR 16 09/24/2016 CA 8.1* 09/24/2016 CA 8.3* 05/07/2015 PROT 6.6 12/07/2014 ALB 3.5 05/07/2015 GLOB 2.8 12/07/2014 BILITOT 0.4 12/07/2014 ALP 81 12/07/2014 AST 11* 12/07/2014 ALT 6* 12/07/2014 EGFR 25* 09/24/2016 IRON: Lab Results Component Value Date IRON 34 09/23/2016 TIBC: Lab Results Component Value Date IRON 34 09/23/2016 TIBC 490 09/23/2016 LABIRON 7* 09/23/2016 FERRITIN: Lab Results Component Value Date FERRITIN 10.21* 05/07/2015 PROBLEM LIST Principal Problem: SOB (shortness of breath) on exertion Active Problems: DM2 (diabetes mellitus, type 2) ([facility]) Anemia, iron deficiency Systolic CHF, chronic (HCC) CKD (chronic kidney disease) stage 4, GFR 15-29 ml/min ([facility]) Coronary artery disease involving [place]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 Pulmonary emphysema ([facility]) Smoker ASSESSMENT & PLAN The patient is an 85-year-old woman with a history of multiple comorbid conditions who was found to have anemia and positive stool occult blood. Her iron studies show iron deficiency anemia. PROBLEM Iron deficiency anemia. At present, there is no evidence of active GI bleeding given her st ool was brown colored. The patient had an EGD and colonoscopy done 1-1/2 years ago for iron deficiency anemia. She was found to have cecal AVM. The most likely cause of her iron defici ency anemia is from AVM in the GI tract. Other differential diagnoses including peptic ulcer disease and less likely from colonic neoplasm. Given the patient has multiple comorbid cond itions, I recommend to treat her anemia with oral iron supplement. If her anemia is getting worse on iron supplement, then the patient should have a repeat EGD and a colonoscopy. If th e patient has not had a capsule endoscopy to evaluate her small bowel, I would recommend one to rule out angiodysplasia of the small intestine. This can be done as an outpatient. The p atient already has been evaluated by Dr. Gibson. She is to call Dr. Gibson for the appointment. The patient agreed with continuing on oral supplement without proceeding with a pr for now. Code Status: Full Code Primary Care Physician: ANTHONY ATKINS Thank you for allowing me to participate in the care of this patient. CYRUS GROSS MD 09/24/2016 documented in this encounter Plan of Treatment Not on filedocumented as of this encounter Procedures + +--------+ + + + | Procedure Name | Priori | Date/Time | Associated Diagnosis | Comments | | | ty | | | | + +--------+ + + + | POC GLUCOSE | Routin | 09/25/2016 | | Results for this | | | e | 11:27 AM | | procedure are in the | | | | PST | | results section. | + +--------+ + + + | HEMOGLOBIN AND | Routin | 09/25/2016 | | Results for this | | HEMATOCRIT | e | 7:53 AM | | procedure are in the | | | | PST | | results section. | + +--------+ + + + | POC GLUCOSE | Routin | 09/25/2016 | | Results for this | | | e | 5:30 AM | | procedure are in the | | | | PST | | results section. | + +--------+ + + + | HEMOGLOBIN AND | Routin | 09/25/2016 | | Results for this | | HEMATOCRIT | e | 1:58 AM | | procedure are in the | | | | PST | | results section. | + +--------+ + + + | TROPONIN I | Routin | 09/24/2016 | | Results for this | | | e | 11:44 PM | | procedure are in the | | | | PST | | results section. | + +--------+ + + + | POC GLUCOSE | Routin | 09/24/2016 | | Results for this | | | e | 9:45 PM | | procedure are in the | | | | PST | | results section. | + +--------+ + + + | TROPONIN I | Routin | 09/24/2016 | | Results for this | | | e | 5:37 PM | | procedure are in the | | | | PST | | results section. | + +--------+ + + + | POC GLUCOSE | Routin | 09/24/2016 | | Results for this | | | e | 4:14 PM | | procedure are in the | | | | PST | | results section. | + +--------+ + + + | HEMOGLOBIN AND | Routin | 09/24/2016 | | Results for this | | HEMATOCRIT | e | 3:45 PM | | procedure are in the | | | | PST | | results section. | + +--------+ + + + | TROPONIN I | Routin | 09/24/2016 | | Results for this | | | e | 12:03 PM | | procedure are in the | | | | PST | | results section. | + +--------+ + + + | POC GLUCOSE | Routin | 09/24/2016 | | Results for this | | | e | 11:28 AM | | procedure are in the | | | | PST | | results section. | + +--------+ + + + | ECG 12 LEAD | Routin | 09/24/2016 | | Results for this | | | e | 10:22 AM | | procedure are in the | | | | PST | | results section. | + +--------+ + + + | TROPONIN I | Routin | 09/24/2016 | | Results for this | | | e | 10:10 AM | | procedure are in the | | | | PST | | results section. | + +--------+ + + + | FERRITIN | Routin | 09/24/2016 | | Results for this | | | e | 10:10 AM | | procedure are in the | | | | PST | | results section. | + +--------+ + + + | HEMOGLOBIN AND | Routin | 09/24/2016 | | Results for this | | HEMATOCRIT | e | 8:40 AM | | procedure are in the | | | | PST | | results section. | + +--------+ + + + | POC GLUCOSE | Routin | 09/24/2016 | | Results for this | | | e | 5:08 AM | | procedure are in the | | | | PST | | results section. | + +--------+ + + + | HEMOGLOBIN AND | Routin | 09/24/2016 | | Results for this | | HEMATOCRIT | e | 4:12 AM | | procedure are in the | | | | PST | | results section. | + +--------+ + + + | PHOSPHORUS | Routin | 09/24/2016 | | Results for this | | | e | 4:12 AM | | procedure are in the | | | | PST | | results section. | + +--------+ + + + | MAGNESIUM | Routin | 09/24/2016 | | Results for this | | | e | 4:12 AM | | procedure are in the | | | | PST | | results section. | + +--------+ + + + | BASIC METABOLIC | Routin | 09/24/2016 | | Results for this | | PANEL | e | 4:12 AM | | procedure are in the | | | | PST | | results section. | + +--------+ + + + | IRON AND IRON | Routin | 09/23/2016 | | Results for this | | BINDING CAPACITY | e | 10:53 PM | | procedure are in the | | | | PST | | results section. | + +--------+ + + + | VITAMIN B-12 | Routin | 09/23/2016 | | Results for this | | | e | 10:53 PM | | procedure are in the | | | | PST | | results section. | + +--------+ + + + | HEMOGLOBIN AND | Routin | 09/23/2016 | | Results for this | | HEMATOCRIT | e | 10:53 PM | | procedure are in the | | | | PST | | results section. | + +--------+ + + + | PROTIME INR | Routin | 09/23/2016 | | Results for this | | | e | 10:53 PM | | procedure are in the | | | | PST | | results section. | + +--------+ + + + | TYPE AND SCREEN | Routin | 09/23/2016 | | Results for this | | | e | 10:53 PM | | procedure are in the | | | | PST | | results section. | + +--------+ + + + | HEMOGLOBIN A1C | Routin | 09/23/2016 | | Results for this | | | e | 10:53 PM | | procedure are in the | | | | PST | | results section. | + +--------+ + + + | FOLATE | Routin | 09/23/2016 | | Results for this | | | e | 10:53 PM | | procedure are in the | | | | PST | | results section. | + +--------+ + + + | POC GLUCOSE | Routin | 09/23/2016 | | Results for this | | | e | 10:20 PM | | procedure are in the | | | | PST | | results section. | + +--------+ + + + documented in this encounter Results POC Glucose (09/25/2016 11:27 AM PST) + + + + + + | Component | Value | Ref Range | Performed | Pathologist | | | | | At | Signature | + + + + + + | Glucose, | 120 (H)Comment: Testing | 65 - 99 mg/dL | EXTERNAL | | | Fingerstick | performed at [facility];[address] | | LAB | | | | [address];[place], [place] | | | | | | [address] | | | | + + + + + + + + | Specimen | + + | | + + + +---------+ + + | Performing | Address | City/State/Zipcode | Phone Number | | Organization | | | | + +---------+ + + | EXTERNAL LAB | | | | + +---------+ + + Hemoglobin and Hematocrit (09/25/2016 7:53 AM PST) + + + + + + | Component | Value | Ref Range | Performed | Pathologist | | | | | At | Signature | + + + + + + | Hemoglobin | 10.9 (L)Comment: Testing | 11.3 - 15.5 | EXTERNAL | | | | performed at [facility];[address] | g/dL | LAB | | | | [address];[place] | | | | | | [address] | | | | + + + + + + | Hematocrit, | 33.5 (L)Comment: Testing | 34.0 - 46.0 % | EXTERNAL | | | POC | performed at [facility];[address] | | LAB | | | | [address];[place] | | | | | | [address] | | | | + + + + + + + + | Specimen | + + | Blood specimen | | (specimen) | + + + +---------+ + + | Performing | Address | City/State/Zipcode | Phone Number | | Organization | | | | + +---------+ + + | EXTERNAL LAB | | | | + +---------+ + + POC Glucose (09/25/2016 5:30 AM PST) + + + + + + | Component | Value | Ref Range | Performed | Pathologist | | | | | At | Signature | + + + + + + | Glucose, | 86Comment: Testing | 65 - 99 mg/dL | EXTERNAL | | | Fingerstick | performed at [facility];[address] | | LAB | | | | [address];[place] | | | | | | [address] | | | | + + + + + + + + | Specimen | + + | | + + + +---------+ + + | Performing | Address | City/State/Zipcode | Phone Number | | Organization | | | | + +---------+ + + | EXTERNAL LAB | | | | + +---------+ + + Hemoglobin and Hematocrit (09/25/2016 1:58 AM PST) + + + + + + | Component | Value | Ref Range | Performed | Pathologist | | | | | At | Signature | + + + + + + | Hemoglobin | 10.8 (L)Comment: Testing | 11.3 - 15.5 | EXTERNAL | | | | performed at [facility];[address] | g/dL | LAB | | | | [address];[place] | | | | | | [address] | | | | + + + + + + | Hematocrit, | 33.5 (L)Comment: Testing | 34.0 - 46.0 % | EXTERNAL | | | POC | performed at [facility];[address] | | LAB | | | | [address];[place] | | | | | | [address] | | | | + + + + + + + + | Specimen | + + | | + + + +---------+ + + | Performing | Address | City/State/Zipcode | Phone Number | | Organization | | | | + +---------+ + + | EXTERNAL LAB | | | | + +---------+ + + Troponin I (09/24/2016 11:44 PM PST) + + + + + + | Component | Value | Ref Range | Performed | Pathologist | | | | | At | Signature | + + + + + + | Troponin I, | 0.282 (H)Comment: 0.00 | 0.00 - 0.10 | EXTERNAL | | | Qual | to 0.10 CONSISTENT | ng/mL | LAB | | | | WITH NORMAL | | | | | | POPULATION0.11 to 0.60 | | | | | | CONSISTENT WITH | | | | | | INCREASED RISK FOR | | | | | | ADVERSE OUTCOMES> 0.60 | | | | | | CONSISTENT | | | | | | WITH WHO CRITERIA FOR | | | | | | ACUTE NE Testing | | | | | | performed at [facility];[address] | | | | | | [address];[place], [place] | | | | | | [address] | | | | + + + + + + + + | Specimen | + + | Blood specimen | | (specimen) | + + + +---------+ + + | Performing | Address | City/State/Zipcode | Phone Number | | Organization | | | | + +---------+ + + | EXTERNAL LAB | | | | + +---------+ + + POC Glucose (09/24/2016 9:45 PM PST) + + + + + + | Component | Value | Ref Range | Performed | Pathologist | | | | | At | Signature | + + + + + + | Glucose, | 171 (H)Comment: Testing | 65 - 99 mg/dL | EXTERNAL | | | Fingerstick | performed at [facility] | | LAB | | | | [address];[place], [place] | | | | | | [address] | | | | + + + + + + + + | Specimen | + + | | + + + +---------+ + + | Performing | Address | City/State/Zipcode | Phone Number | | Organization | | | | + +---------+ + + | EXTERNAL LAB | | | | + +---------+ + + Troponin I (09/24/2016 5:37 PM PST) + + + + + + | Component | Value | Ref Range | Performed | Pathologist | | | | | At | Signature | + + + + + + | Troponin I, | 0.399 (H)Comment: 0.00 | 0.00 - 0.10 | EXTERNAL | | | Qual | to 0.10 CONSISTENT | ng/mL | LAB | | | | WITH NORMAL | | | | | | POPULATION0.11 to 0.60 | | | | | | CONSISTENT WITH | | | | | | INCREASED RISK FOR | | | | | | ADVERSE OUTCOMES> 0.60 | | | | | | CONSISTENT | | | | | | WITH WHO CRITERIA FOR | | | | | | ACUTE NE Testing | | | | | | performed at [facility];[address] | | | | | | [facility];[place], [place] | | | | | | [address] | | | | + + + + + + + + | Specimen | + + | Blood specimen | | (specimen) | + + + +---------+ + + | Performing | Address | City/State/Zipcode | Phone Number | | Organization | | | | + +---------+ + + | EXTERNAL LAB | | | | + +---------+ + + POC Glucose (09/24/2016 4:14 PM PST) + + + + + + | Component | Value | Ref Range | Performed | Pathologist | | | | | At | Signature | + + + + + + | Glucose, | 107 (H)Comment: Testing | 65 - 99 mg/dL | EXTERNAL | | | Fingerstick | performed at [facility];[address] | | LAB | | | | [address];[place] | | | | | | [address] | | | | + + + + + + + + | Specimen | + + | | + + + +---------+ + + | Performing | Address | City/State/Zipcode | Phone Number | | Organization | | | | + +---------+ + + | EXTERNAL LAB | | | | + +---------+ + + Hemoglobin and Hematocrit (09/24/2016 3:45 PM PST) + + + + + + | Component | Value | Ref Range | Performed | Pathologist | | | | | At | Signature | + + + + + + | Hemoglobin | 8.4 (L)Comment: Testing | 11.3 - 15.5 | EXTERNAL | | | | performed at [facility];[address] | g/dL | LAB | | | | [address];[place] | | | | | | [address] | | | | + + + + + + | Hematocrit, | 26.4 (L)Comment: Testing | 34.0 - 46.0 % | EXTERNAL | | | POC | performed at [facility];[address] | | LAB | | | | [address];[place], [place] | | | | | | [address] | | | | + + + + + + + + | Specimen | + + | Blood specimen | | (specimen) | + + + +---------+ + + | Performing | Address | City/State/Zipcode | Phone Number | | Organization | | | | + +---------+ + + | EXTERNAL LAB | | | | + +---------+ + + Troponin I (09/24/2016 12:03 PM PST) + + + + + + | Component | Value | Ref Range | Performed | Pathologist | | | | | At | Signature | + + + + + + | Troponin I, | 0.499 (H)Comment: 0.00 | 0.00 - 0.10 | EXTERNAL | | | Qual | to 0.10 CONSISTENT | ng/mL | LAB | | | | WITH NORMAL | | | | | | POPULATION0.11 to 0.60 | | | | | | CONSISTENT WITH | | | | | | INCREASED RISK FOR | | | | | | ADVERSE OUTCOMES> 0.60 | | | | | | CONSISTENT | | | | | | WITH WHO CRITERIA FOR | | | | | | ACUTE NE Testing | | | | | | performed at [facility] | | | | | | [address];[place], [place] | | | | | | [address] | | | | + + + + + + + + | Specimen | + + | Blood specimen | | (specimen) | + + + +---------+ + + | Performing | Address | City/State/Zipcode | Phone Number | | Organization | | | | + +---------+ + + | EXTERNAL LAB | | | | + +---------+ + + POC Glucose (09/24/2016 11:28 AM PST) + + + + + + | Component | Value | Ref Range | Performed | Pathologist | | | | | At | Signature | + + + + + + | Glucose, | 142 (H)Comment: Testing | 65 - 99 mg/dL | EXTERNAL | | | Fingerstick | performed at [facility];[address] | | LAB | | | | [address];[place], [place] | | | | | | [address] | | | | + + + + + + + + | Specimen | + + | | + + + +---------+ + + | Performing | Address | City/State/Zipcode | Phone Number | | Organization | | | | + +---------+ + + | EXTERNAL LAB | | | | + +---------+ + + ECG 12 lead (09/24/2016 10:22 AM PST) + + + + + + | Component | Value | Ref Range | Performed | Pathologist | | | | | At | Signature | + + + + + + | DIAGNOSIS: | Normal sinus | | EXTERNAL | | | | rhythmCannot rule out | | LAB | | | | Anterior infarct (cited | | | | | | on or before | | | | | | 01-MAY-2014)Abnormal | | | | | | ECGWhen compared with | | | | | | ECG of 05-MAY-2014 | | | | | | 09:48,Premature | | | | | | ventricular complexes | | | | | | are no longer | | | | | | PresentQuestionable | | | | | | change in initial forces | | | | | | of Anteroseptal | | | | | | leadsConfirmed by | | | | | | JUDY TIDWELL ([id number]) on | | | | | | 09/25/2016 10:03:15 AM | | | | + + + + + + + + | Specimen | + + | | + + + + + | Narrative | Performed At | + + + | Historically converted procedure from [facility] environment | EXTERNAL LAB | + + + + +---------+ + + | Performing | Address | City/State/Zipcode | Phone Number | | Organization | | | | + +---------+ + + | EXTERNAL LAB | | | | + +---------+ + + Troponin I (09/24/2016 10:10 AM PST) + + + + + + | Component | Value | Ref Range | Performed | Pathologist | | | | | At | Signature | + + + + + + | Troponin I, | 0.57 (H)Comment: 0.00 | 0.00 - 0.10 | EXTERNAL | | | Qual | to 0.10 CONSISTENT | ng/mL | LAB | | | | WITH NORMAL | | | | | | POPULATION0.11 to 0.60 | | | | | | CONSISTENT WITH | | | | | | INCREASED RISK FOR | | | | | | ADVERSE OUTCOMES> 0.60 | | | | | | CONSISTENT | | | | | | WITH WHO CRITERIA FOR | | | | | | ACUTE NE Testing | | | | | | performed at [facility];[address] | | | | | | [address] [facility];[place], [place] | | | | | | [address] | | | | + + + + + + + + | Specimen | + + | | + + + +---------+ + + | Performing | Address | City/State/Zipcode | Phone Number | | Organization | | | | + +---------+ + + | EXTERNAL LAB | | | | + +---------+ + + Ferritin (09/24/2016 10:10 AM PST) + + + + + + | Component | Value | Ref Range | Performed | Pathologist | | | | | At | Signature | + + + + + + | Ferritin, | 5 (L)Comment: Testing | 6 - 170 ng/mL | EXTERNAL | | | External | performed at [facility], [address] | | LAB | | | | [address], | | | | | | [place] [address] | | | | + + + + + + + + | Specimen | + + | Blood specimen | | (specimen) | + + + +---------+ + + | Performing | Address | City/State/Zipcode | Phone Number | | Organization | | | | + +---------+ + + | EXTERNAL LAB | | | | + +---------+ + + Hemoglobin and Hematocrit (09/24/2016 8:40 AM PST) + + + + + + | Component | Value | Ref Range | Performed | Pathologist | | | | | At | Signature | + + + + + + | Hemoglobin | 8.4 (L)Comment: Testing | 11.3 - 15.5 | EXTERNAL | | | | performed at [facility];[address] | g/dL | LAB | | | | [address];[place] | | | | | | [address] | | | | + + + + + + | Hematocrit, | 26.8 (L)Comment: Testing | 34.0 - 46.0 % | EXTERNAL | | | POC | performed at [facility];[address] | | LAB | | | | [address];[place] | | | | | | [address] | | | | + + + + + + + + | Specimen | + + | Blood specimen | | (specimen) | + + + +---------+ + + | Performing | Address | City/State/Zipcode | Phone Number | | Organization | | | | + +---------+ + + | EXTERNAL LAB | | | | + +---------+ + + POC Glucose (09/24/2016 5:08 AM PST) + + + + + + | Component | Value | Ref Range | Performed | Pathologist | | | | | At | Signature | + + + + + + | Glucose, | 99Comment: Testing | 65 - 99 mg/dL | EXTERNAL | | | Fingerstick | performed at [facility];[address] | | LAB | | | | [address];[place], [place] | | | | | | [address] | | | | + + + + + + + + | Specimen | + + | | + + + +---------+ + + | Performing | Address | City/State/Zipcode | Phone Number | | Organization | | | | + +---------+ + + | EXTERNAL LAB | | | | + +---------+ + + Hemoglobin and Hematocrit (09/24/2016 4:12 AM PST) + + + + + + | Component | Value | Ref Range | Performed | Pathologist | | | | | At | Signature | + + + + + + | Hemoglobin | 8.2 (L)Comment: Testing | 11.3 - 15.5 | EXTERNAL | | | | performed at [facility];[address] | g/dL | LAB | | | | [address];[place] | | | | | | [address] | | | | + + + + + + | Hematocrit, | 25.3 (L)Comment: Testing | 34.0 - 46.0 % | EXTERNAL | | | POC | performed at [facility];[address] | | LAB | | | | [address];[place], [place] | | | | | | [address] | | | | + + + + + + + + | Specimen | + + | Blood specimen | | (specimen) | + + + +---------+ + + | Performing | Address | City/State/Zipcode | Phone Number | | Organization | | | | + +---------+ + + | EXTERNAL LAB | | | | + +---------+ + + Phosphorus (09/24/2016 4:12 AM PST) + + + + + + | Component | Value | Ref Range | Performed | Pathologist | | | | | At | Signature | + + + + + + | PHOSPHORUS | 4.4Comment: Testing | 2.3 - 4.8 mg/dL | EXTERNAL | | | | performed at [facility], [address] | | LAB | | | | [address], | | | | | | [place] [address] | | | | + + + + + + + + | Specimen | + + | Blood specimen | | (specimen) | + + + +---------+ + + | Performing | Address | City/State/Zipcode | Phone Number | | Organization | | | | + +---------+ + + | EXTERNAL LAB | | | | + +---------+ + + Magnesium (09/24/2016 4:12 AM PST) + + + + + + | Component | Value | Ref Range | Performed | Pathologist | | | | | At | Signature | + + + + + + | Magnesium | 2.3Comment: Testing | 1.7 - 2.4 mg/dL | EXTERNAL | | | | performed at [facility], [address] | | LAB | | | | [address], | | | | | | [place] [address] | | | | + + + + + + + + | Specimen | + + | Blood specimen | | (specimen) | + + + +---------+ + + | Performing | Address | City/State/Zipcode | Phone Number | | Organization | | | | + +---------+ + + | EXTERNAL LAB | | | | + +---------+ + + Basic Metabolic Panel (09/24/2016 4:12 AM PST) + + + + + + | Component | Value | Ref Range | Performed | Pathologist | | | | | At | Signature | + + + + + + | Na | 140Comment: Testing | 135 - 145 | EXTERNAL | | | | performed at [facility], [address] | mmol/L | LAB | | | | [address], | | | | | | [place] [address] | | | | + + + + + + | K | 4.4Comment: Testing | 3.5 - 4.9 | EXTERNAL | | | | performed at [facility], [address] | mmol/L | LAB | | | | [address], | | | | | | [place] [address] | | | | + + + + + + | Cl | 108Comment: Testing | 99 - 109 mmol/L | EXTERNAL | | | | performed at [facility], [address] | | LAB | | | | [address], | | | | | | [place] [address] | | | | + + + + + + | CO2 | 22 (L)Comment: Testing | 23 - 32 mmol/L | EXTERNAL | | | | performed at [facility], [address] | | LAB | | | | [address], | | | | | | [place] [address] | | | | + + + + + + | Anion Gap | 14Comment: Testing | 5 - 20 mmol/L | EXTERNAL | | | | performed at [facility], [address] | | LAB | | | | [address], | | | | | | [place] [address] | | | | + + + + + + | Glucose, | 92Comment: Testing | 65 - 99 mg/dL | EXTERNAL | | | Fasting | performed at [facility], [address] | | LAB | | | | [address], | | | | | | [place] [address] | | | | + + + + + + | BUN | 31 (H)Comment: Testing | 8 - 25 mg/dL | EXTERNAL | | | | performed at [facility], [address] | | LAB | | | | [address], | | | | | | [place] [address] | | | | + + + + + + | Creatinine | 2.0 (H)Comment: Testing | 0.50 - 1.00 | EXTERNAL | | | | performed at [facility], [address] | mg/dL | LAB | | | [address], | | | | | | [place] [address] | | | | + + + + + + | BUN/Creatin | 16Comment: Testing | | EXTERNAL | | | ine Ratio | performed at [facility], [address] | | LAB | | | | [address], | | | | | | [place] [address] | | | | + + + + + + | Calcium | 8.1 (L)Comment: Testing | 8.5 - 10.5 | EXTERNAL | | | | performed at [facility], [address] | mg/dL | LAB | | | | [address], | | | | | | [place] [address] | | | | + + + + + + | Estimated | 25 (L)Comment: GFR <60: | mL/min/1.73m2 | EXTERNAL | | | GFR | CHRONIC KIDNEY DISEASE, | | LAB | | | | IF FOUND OVER A 3 MONTH | | | | | | PERIOD.GFR <15: KIDNEY | | | | | | FAILURE.FOR | | | | | | AMERICANS, MULTIPLY THE | | | | | | CALCULATED GFR BY | | | | | | 1.210.Testing performed | | | | | | at [facility], [address] | | | | | | [address], | | | | | | [place] [address] | | | | + + + + + + + + | Specimen | + + | Blood specimen | | (specimen) | + + + +---------+ + + | Performing | Address | City/State/Zipcode | Phone Number | | Organization | | | | + +---------+ + + | EXTERNAL LAB | | | | + +---------+ + + Type and Screen (09/23/2016 10:53 PM PST) + + + + + + | Component | Value | Ref Range | Performed | Pathologist | | | | | At | Signature | + + + + + + | ABO Rh | O POSITIVE | | EXTERNAL | | | | | | LAB | | + + + + + + | Antibody | NEGATIVE | | EXTERNAL | | | Screen | | | LAB | | + + + + + + | BB BAND | [id number] | | EXTERNAL | | | | | | LAB | | + + + + + + | UNIT NUMBER | [id number] | | EXTERNAL | | | | | | LAB | | + + + + + + | Product | LEUKODEPLETED PC | | EXTERNAL | | | Code | | | LAB | | + + + + + + | Unit | 00 | | EXTERNAL | | | Division | | | LAB | | + + + + + + | Unit Status | ISSUED,FINAL | | EXTERNAL | | | | | | LAB | | + + + + + + | Transfusion | OK TO TRANSFUSE | | EXTERNAL | | | Status | | | LAB | | + + + + + + | CROSSMATCH | COMPATIBLE | | EXTERNAL | | | RESULT | | | LAB | | + + + + + + | UNIT NUMBER | [id number] | | EXTERNAL | | | | | | LAB | | + + + + + + | UNIT NUMBER | Testing performed at | | EXTERNAL | | | | [facility];[address] | [address] | | [address];[place] [address] | | | | + + + + + + | Product | LEUKODEPLETED PCTesting | | EXTERNAL | | | Code | performed at [facility];[address] | | LAB | | | | [address];[place], [place] | | | | | | [address] | | | | + + + + + + | Unit | 00Testing performed at | | EXTERNAL | | | Division | [facility];[address] | [address] | | | [address];[place] [address] | | | | + + + + + + | Unit Status | ISSUED,FINALTesting | | EXTERNAL | | | | performed at [facility];[address] | | LAB | | | | [address];[place] | | | | | | [address] | | | | + + + + + + | Transfusion | OK TO TRANSFUSETesting | | EXTERNAL | | | Status | performed at [facility];[address] | | LAB | | | | [address];[place] | | | | | | [id number] | | | | + + + + + + | CROSSMATCH | COMPATIBLETesting | | EXTERNAL | | | RESULT | performed at [facility];[address] | | LAB | | | | [address];[place] | | | | | | [address] | | | | + + + + + + + + | Specimen | + + | Blood specimen | | (specimen) | + + + +---------+ + + | Performing | Address | City/State/Zipcode | Phone Number | | Organization | | | | + +---------+ + + | EXTERNAL LAB | | | | + +---------+ + + Hemoglobin and Hematocrit (09/23/2016 10:53 PM PST) + + + + + + | Component | Value | Ref Range | Performed | Pathologist | | | | | At | Signature | + + + + + + | Hemoglobin | 9.0 (L)Comment: Testing | 11.3 - 15.5 | EXTERNAL | | | | performed at [facility];[address] | g/dL | LAB | | | | [address];[place] | | | | | | [address] | | | | + + + + + + | Hematocrit, | 28.1 (L)Comment: Testing | 34.0 - 46.0 % | EXTERNAL | | | POC | performed at [facility];[address] | | LAB | | | | [address];[place] | | | | | | [address] | | | | + + + [...] + + Iron and Iron Binding Capacity (09/23/2016 10:53 PM PST) + + + + + + | Component | Value | Ref Range | Performed | Pathologist | | | | | At | Signature | + + + + + + | Iron | 34Comment: Testing | 30 - 180 ug/dL | EXTERNAL | | | | performed at [facility], [address] | | LAB | | | | [place] [address], | | | | | | [place] [address] | | | | + + + + + + | TIBC | 490Comment: Testing | 260 - 490 ug/dL | EXTERNAL | | | | performed at [facility], [address] | | LAB | | | | [place], | | | | | | [place] [address] | | | | + + + + + + | Iron | 7 (L)Comment: Testing | 15 - 50 % | EXTERNAL | | | Saturation | performed at [facility], [address] | | LAB | | | | [place] [address], | | | | | | [place] [address] | | | | + + + + + + + + | Specimen | + + | Blood specimen | | (specimen) | + + + +---------+ + + | Performing | Address | City/State/Zipcode | Phone Number | | Organization | | | | + +---------+ + + | EXTERNAL LAB | | | | + +---------+ + + Protime INR (09/23/2016 10:53 PM PST) + + + + + + | Component | Value | Ref Range | Performed | Pathologist | | | | | At | Signature | + + + + + + | INR | 1.0Comment: REFERENCE | | EXTERNAL | | | | RANGE:0.9 - 1.2 | | LAB | | | | NON-ANTICOAGULATED2.0 | | | | | | - 3.0 ALL OTHER | | | | | | THERAPEUTIC | | | | | | INDICATIONS2.5 - 3.5 | | | | | | MECHANICAL HEART VALVES, | | | | | | RECURRENT OR SYSTEMIC | | | | | | EMBOLISMTesting | | | | | | performed at [facility] | | | | | | [facility];[place], [place] | | | | | | [address] | | | | + + + + + + + + | Specimen | + + | Blood specimen | | (specimen) | + + + +---------+ + + | Performing | Address | City/State/Zipcode | Phone Number | | Organization | | | | + +---------+ + + | EXTERNAL LAB | | | | + +---------+ + + Hemoglobin A1C (09/23/2016 10:53 PM PST) + + + + + + | Component | Value | Ref Range | Performed | Pathologist | | | | | At | Signature | + + + + + + | Hemoglobin | 5.8Comment: [facility] [place] | 4.0 - 6.0 % | EXTERNAL | | | A1c | Diabetes Association | | LAB | | | | considers a hemoglobin | | | | | | A1c result of <7.0% to | | | | | | be the goal of diabetic | | | | | | therapy. When results | | | | | | are consistently >8.0%, | | | | | | the ADA suggests | | | | | | reevaluation of the | | | | | | treatment regimen. The | | | | | | testing method used is | | | | | | certified traceable to | | | | | | the Diabetes Control and | | | | | | Complications Trial | | | | | | reference method.Testing | | | | | | performed at [facility], [address] [facility], | | | | | | [place] [address] | | | | + + + + + + | Glycohemogl | 120Comment: The ADA | mg/dL | EXTERNAL | | | obin | considers an eAG result | | LAB | | | (GHb),Total | of LT 154 mg/dL to be | | | | | | the goal of diabetic | | | | | | therapy. Estimated | | | | | | Average Glucose | | | | | | calculated from | | | | | | hemoglobin A1c by use of | | | | | | the ADA recommended | | | | | | formula.Testing | | | | | | performed at [facility], [address] | | | | | | [facility], | | | | | | [place] [address] | | | | + + + + + + + + | Specimen | + + | Blood specimen | | (specimen) | + + + +---------+ + + | Performing | Address | City/State/Zipcode | Phone Number | | Organization | | | | + +---------+ + + | EXTERNAL LAB | | | | + +---------+ + + Folate (09/23/2016 10:53 PM PST) + + + + + + | Component | Value | Ref Range | Performed | Pathologist | | | | | At | Signature | + + + + + + | Folate | 14.1Comment: Testing | ng/mL | EXTERNAL | | | | performed at [facility], [address] | | LAB | | | | [place], | | | | | | [place] [address] | | | | + + + + + + + + | Specimen | + + | Blood specimen | | (specimen) | + + + +---------+ + + | Performing | Address | City/State/Zipcode | Phone Number | | Organization | | | | + +---------+ + + | EXTERNAL LAB | | | | + +---------+ + + Vitamin B-12 (09/23/2016 10:53 PM PST) + + + + + + | Component | Value | Ref Range | Performed | Pathologist | | | | | At | Signature | + + + + + + | VITAMIN | 446Comment: Testing | 254 - 1,320 | EXTERNAL | | | B-12 | performed at [facility], [address] | pg/mL | LAB | | | | [place], | | | | | | [place] [address] | | | | + + + + + + + + | Specimen | + + | Blood specimen | | (specimen) | + + + +---------+ + + | Performing | Address | City/State/Zipcode | Phone Number | | Organization | | | | + +---------+ + + | EXTERNAL LAB | | | | + +---------+ + + POC Glucose (09/23/2016 10:20 PM PST) + + + + + + | Component | Value | Ref Range | Performed | Pathologist | | | | | At | Signature | + + + + + + | Glucose, | 117 (H)Comment: Testing | 65 - 99 mg/dL | EXTERNAL | | | Fingerstick | performed at [facility];[address] | LAB | | | | [address];[place] | | | | | | [address] | | | | + + + [...] Visit Diagnoses Not on filedocumented in this encounter
--- OUTSIDE RECORDS SUMMARY | ~2020-05-14 | XMS | Encounter Summary ---
Demographics + + + | Address | [address] | | | [place] [address] | + + + | Home Phone | | + + + | Preferred Language | Unknown | + + + | Marital Status | | + + + | Druze Affiliation | Unknown | + + + | Race | Unknown | + + + | Ethnic Group | Unknown | + + + Author + + + | Author | [facility] | | | and [place] | + + + | Organization | [facility] | | | and [place] | + + + | Address | Unknown | + + + | Phone | Unavailable | + + + Support + + +---------+ + | Name | Relationship | Address | Phone | + + +---------+ + | Amado Hawkins | ECON | Unknown | | + + +---------+ + | Dori Ferreiracomb | ECON | Unknown | | + + +---------+ + | Helga Ferreiracomb | ECON | Unknown | | + + +---------+ + Care Team Providers + +------+ + | Care Graphics Programmer Name | Role | Phone | + +------+ + | Anthony Atkins DO | PCP | | + +------+ + Reason for Referral Evaluate & Treat (Routine) +--------+ + + + + + | Status | Reason | Specialty | Diagnoses / | Referred By | Referred To | | | | | Procedures | Contact | Contact | +--------+ + + + + + | Closed | Specialty | Home Health | Diagnoses | John, | | | | Services | Services | Acute on | Evan Glasgow MD | | | | Required | | chronic | [address] | | | | | | congestive | [place] | | | | | | heart | [place], [place] | | | | | | failure, | [id number] | | | | | | unspecified | Phone: | | | | | | congestive | [phone] | | | | | | heart | Fax: | | | | | | failure type | [phone] | | | | | | Anemia, | | | | | | | unspecified | | | | | | | type Acute | | | | | | | on chronic | | | | | | | systolic | | | | | | | congestive | | | | | | | heart | | | | | | | failure | | | | | | | (HCC) CKD | | | | | | | (chronic | | | | | | | kidney | | | | | | | disease) | | | | | | | stage 4, GFR | | | | | | | 15-29 | | | | | | | ml/min (HCC) | | | | | | | Ischemic | | | | | | | cardiomyopat | | | | | | | hy | | | +--------+ + + + + + Reason for Visit Auth/Cert +--------+--------+ + + + + | Status | Reason | Specialty | Diagnoses / | Referred By | Referred To | | | | | Procedures | Contact | Contact | +--------+--------+ + + + + | | | | Diagnoses | | | | | | | CHF | | | | | | | (congestive | | | | | | | heart | | | | | | | failure) | | | | | | | (HCC) COPD | | | | | | | (chronic | | | | | | | obstructive | | | | | | | pulmonary | | | | | | | disease) | | | | | | | (HCC) CHF | | | | | | | COPD | | | +--------+--------+ + + + + Encounter Details +--------+ + + + + | Date | Type | Department | Care Team | Description | +--------+ + + + + | 04/06/ | Hospital | [facility] | Curtis Guerrero, | Acute respiratory | | 2016 - | Encounter | [facility] | [address] | failure with hypoxia | | | | [address] [place] | [place] JOLLY | (HCC) (Primary Dx); | | 04/09/ | | [place] [id number] | [id number] | Acute on chronic | | 2015 | | [phone] | | congestive heart | | | | | Chirag Mae | failure, unspecified | | | | | MD Vikash [address] | congestive heart | | | | | [address] | failure type ([facility]); | | | | | [place] [address] | Shortness of breath; | | | | | [phone] | Anemia, unspecified | | | | | | type; Acute on | | | | | | chronic systolic | | | | | | congestive heart | | | | | | failure ([facility]); CKD | | | | | | (chronic kidney | | | | | | disease) stage 4, | | | | | | GFR 15-29 ml/min | | | | | | ([facility]); Ischemic | | | | | | cardiomyopathy | +--------+ + + + + Social [...] + + + | Blood Pressure | 119/56 | 04/09/2016 4:14 PM | | | | | PDT | | + + + + + | Pulse | 80 | 04/09/2016 4:14 PM | | | | | PDT | | + + + + + | Temperature | 36.2 C (97.2 F) | 04/09/2016 4:14 PM | | | | | PDT | | + + + + + | Respiratory Rate | 22 | 04/09/2016 4:14 PM | | | | | PDT | | + + + + + | Oxygen Saturation | 96% | 04/09/2016 4:14 PM | | | | | PDT | | + + + + + | Inhaled Oxygen | - | - | | | Concentration | | | | + + + + + | Weight | 55.4 kg (122 lb 2.2 | 04/09/2016 3:52 AM | | | | oz) | PDT | | + + + + + | Height | 149.9 cm (4' 11") | 04/06/2016 6:44 AM | | | | | PDT | | + + + + + | Body Mass Index | 24.67 | 04/06/2016 6:44 AM | | | | | PDT | | + + + + + documented in this encounter Discharge Summaries Evan Lopez MD - 04/09/2016 5:53 PM PDT [facility] DISCHARGE SUMMARY Pt. Name/Age/: Alexsandra Hawkins 85 y.o. 1930 Date of Admission: 04/06/2016 Date of Discharge: 04/09/2016 Admitting Physician: Curtis Guerrero MD Primary Care Provider: Anthony Atkins DO Discharging Physician: Evan Lopez MD DISCHARGE DIAGNOSES: Active Hospital Problems Diagnosis CHF (congestive heart failure) Secondary to systolic dysfunction ischemic cardiomyopathy with abnormal stress test suggesting anterior wall ischemia symptomatic anemia, multifactorial, with both iron deficiency and vitamin B12 deficien cy found this admission. CKD, likely stage IV with admission GFR of 27, acute worsening secondary to diuretic t herapy History of type II diabetes currently diet controlled No resolved problems to display. Recommendations: 1.This patient will require evaluation with colonoscopy for colon polyps and tumors given h er iron deficiency status which should occur following assessment of her heart which likely will include coronary angiography once renal function has stabilized. 2. Patient will need follow-up vitamin B12 levels noting a B12 of 179 this admission she w as given a single 1000 g IM dose and then placed on the thousand micrograms orally daily w ith the recommendation that her B12 be increased to greater than 300 pg/ml DISCHARGE MEDICATIONS: Discharge Medications New Medications Details aspirin 81 mg chewable tablet Take 1 tablet by mouth Daily. atorvaSTATin 20 mg tablet Take 1 tablet by mouth nightly. aka: LIPITOR carvedilol 3.125 mg tablet Take 1 tablet by mouth 2 times daily (with breakfast & dinner). aka: COREG cyanocobalamin 1000 MCG tablet Take 1 tablet by mouth Daily. aka: VITAMIN B-12 docusate sodium 250 MG capsule Take 1 capsule by mouth Daily. aka: COLACE furosemide 80 mg tablet Take 1 tablet by mouth Daily. aka: LASIX DISCHARGE INSTRUCTIONS: Follow-up Information Follow up with Valeriy Ceballos MD. Go on 04/20/2016. Specialty: Cardiology Why: Follow up with Dr. Scott, check in at 8:00 am Contact information: [address] [place] [id number] RESULTS: NUCLEAR MEDICINE STRESS TEST REPORT Patient Name: Alexsandra Hawkins Study Date: 04/07/2016 Primary Care Provider: Anthony Atkins DO : 1930 Age: 85 y.o. Gender: female CLINICAL HISTORY/DIAGNOSIS: Heart failure/CAD PERSANTINE SESTAMIBI STRESS TEST Indication: heart failure/CAD Procedure: In the supine position, 32 mg of Persantine was infused intravenously over 4 minutes. Bl ood pressure and EKG were monitored every 1 minute. 5 mL of normal saline was utilized to flush the IV line. 2.5 minutes later, 10.8 mCi sestamibi intravenous injection. SPECT my ocardial perfusion imaging was acquired with wall motion analysis. Rest imaging was perfor med using 29.7 mCi Sestamibi intravenous injection. Repeated SPECT myocardial perfusion im aging was acquired with wall motion analysis. At the end of the procedure, 75 mg of aminop hylline was infused intravenously. Hemodynamics: Heart rate baseline 80 beats per minute, peak 94 beats per minute. Blood pressure baselin e 124/71 mmHg, peak 114/56 mmHg. EKG baseline underlying sinus rhythm, nonspecific ST-T ab normalities. Peak unchanged. Side Effects: None. Arrhythmia: None. Persantine Sestamibi Myocardial Perfusion Imaging Result: The Persantine Sestamibi tomographic images, reviewed without the attenuation compensatio n resolution, revealed a large size, partially reversible defect of a severe in severity in the mid anterior, distal anterior and apex. Abnormalities can be seen in short axis, v ertical long axis, and horizontal long axis projections comprising approximately 31% of the left ventricular myocardium. The left ventricular cavity is normal. The rest imaging showed partial reversibility of the anterior wall defect. Gated SPECT reveals a normal left ventricular wall thickness with akinesis of the mid ant erior, distal anterior and apex. Overall, left ventricular systolic and is severely decrea sed. LVEF by gated SPECT is 29 %. IMPRESSION: 1. Persantine EKG is negative. 2. Abnormal Persantine Sestamibi myocardial perfusion study with a large size, partially reversible defect of a severe in severity in the mid anterior, distal anterior and apex. This suggests a large size, partial myocardial ischemia of the proximal left anterior descen ding artery territories. Gated SPECT reveals a normal left ventricular wall thickness with a kinesis of the mid anterior, distal anterior and apex. Overall, left ventricular systolic and is severely decreased. LVEF by gated SPECT is 29 %. Signed by:Valeriy Ceballos MD [facility] 04/07/2016, 12:54 04/08/2016 6:53 - Valeriy Ceballos MD Addenda Correction; overall left ventricular systolic function is moderately decreased. LVEF i s 40-45%. Signed by Valeriy Ceballos MD on 04/08/2016 6:53 Narrative & [address]ression [facility] ECHOCARDIOGRAM REPORT STUDY DATE: 04/06/2016 PATIENT NAME: Alexsandra Hawkins : 1930 PCP: Anthony Atkins DO CLINICAL HISTORY/DIAGNOSIS: CHF A transthoracic echocardiogram with M-mode, pulsed-wave and color Doppler was performed wit h standard views obtained. The technical quality of this examination is adequate. The he art rhythm during the echo is sinus rhythm. The M-mode, two-dimensional, color flow and sp ectral Doppler data were reviewed and support the following interpretation: Interpretation: Left Atrium: Left atrial size is mildly dilated. Left ventricle: Left ventricular size normal with normal wall thickness. There is a segme ntal wall motion abnormality with severe hypokinesis of the mid anterior, mid anteroseptal, distal anterior and distal septum. Overall left ventricular systolic function is low jung l The estimated ejection fraction is 50-55 %. Grade 1 left ventricular diastolic dysfunc tion. Aortic root: Aortic root is normal. Right Atrium: Right atrial size is normal. Right ventricle: Right ventricular size is normal with normal wall thickness and normal ri ght ventricular systolic function. Pericardium: Pericardium is normal. Pulmonary artery: Pulmonary artery is normal. moderate pulmonary hypertension with a peak systolic pressure of 55-60 mmHg. Aortic valve: Aortic valve is trileaflet and opens normally. trace aortic valve insufficie ncy. Mitral valve: Mitral valve is mild thickened with a mild to moderate mitral valve regurgi tation. There is a mild mitral annular calcification . Pulmonic valve: Pulmonic valve is normal. Tricuspid valve: Tricuspid valve is normal. mild tricuspid regurgitation. Vena cava: Dilated IVC with a normal respiratory collapse. IMPRESSIONS: 1. Mild left atrial dilatation. 2. Normal left ventricular size and wall thickness.There is a segmental wall motion abnor mality with severe hypokinesis of the mid anterior, mid anteroseptal, distal anterior and di stal septum. Overall left ventricular systolic function is low normal The estimated ejec tion fraction is 50-55 %. 3. Grade 1 left ventricular diastolic dysfunction. 4. Trace aortic valve insufficiency. 5. Mildly thickened mitral valve with [id number]-[id number] mitral valve regurgitation. 6. Mild mitral annular calcification. 7. Mild tricuspid valve regurgitation. 8. Moderate pulmonary hypertension with a peak systole pressure of 55-60 mmHg. 9. Dilated IVC with normal respiratory collapse. Measurements: Height: 4'11" Weight: 124 Aortic root: 30 mm Aortic cusp sep: 17 mm LA: 48 mm IVS-diastole: 9 mm IVS-systole: mm LVPW diastole: 10 mm LVPW systole: mm LVIDD: 52 mm LVIDS: mm Fractional shortening: % PFV aortic valve: m/s MPG mitral valve: mmHg PFV TR jet: 3.39 m/s RA/RV PP. mmHg LA volume: 86 mL LA index: 59 mL/m2 Mitral Inflow DT: 105 ms IVRT: 58 ms Valsalva: NOT NEEDED PWDTI S wave: 5 cm/s PWDTI e' wave: 7 cm/s PWDTI a' wave: 11 cm/s E/A Ratio: 0.63 E/e' Ratio: 13.3 Signed by: Valeriy Ceballos MD [facility] 04/06/2016 11:49 Can Handler: Narayan Butler CHAMP Results for ALEXSANDRA HAWKINS ( ) as of 04/09/2016 17:22 Ref. Range 04/06/2016 22:24 04/07/2016 04:02 04/07/2016 14:34 04/08/2016 03:34 04/09/2016 04:51 NA Latest Ref Range: 136-149 mmol/L 134 (L) 134 (L) 135 (L) K Latest Ref Range: 3.5-5.1 mmol/L 4.3 4.5 4.2 Chloride Latest Ref Range: 98-109 mmol/L 103 99 100 Carbon dioxide Latest Ref Range: 24-31 mmol/L 23 (L) 25 25 ANION GAP Latest Ref Range: 3-16 mmol/L 8 10 10 GLUCOSE Latest Ref Range: 70-109 mg/dL 151 (H) 106 98 BUN Latest Ref Range: 7-18 mg/dL 40 (H) 55 (H) 51 (H) BUN/CREA Unknown 15.7 22.0 22.9 Creatinine Latest Ref Range: 0.60-1.30 mg/dL 2.54 (H) 2.50 (H) 2.23 (H) EGFR IF NOT Latest Ref Range: >=60 mL/min/1.73m2 18 (L) 18 (L) 21 (L) Calcium Latest Ref Range: 8.3-10.5 mg/dL 8.3 8.2 (L) 8.0 (L) FERRITIN Latest Ref Range: 11-<307 ng/mL 6 (L) Folate Latest Ref Range: >5.8 ng/mL 12.7 IRON Latest Ref Range: 40-150 ug/dL 10 (L) TIBC Latest Ref Range: 235-425 ug/dL 510 (H) % SATURATION Latest Ref Range: 20.0-55.0 % 2.0 (L) Transferrin Latest Ref Range: 240.0-480.0 mg/dL 364.0 Vitamin B12 Latest Ref Range: 180-914 pg/mL 179 (L) B-TYPE NATRIURETIC PEPTIDE Latest Ref Range: <100 pg/mL 638 (H) 921 (H) Troponin I Latest Ref Range: <0.06 ng/mL 0.06 (H) Results for SHRUTHI ALEXSANDRA ANTON ( ) as of 04/09/2016 17:22 Ref. Range 04/06/2016 10:06 NA Latest Ref Range: 136-149 mmol/L 139 K Latest Ref Range: 3.5-5.1 mmol/L 3.7 Chloride Latest Ref Range: 98-109 mmol/L 106 Carbon dioxide Latest Ref Range: 24-31 mmol/L 19 (L) ANION GAP Latest Ref Range: 3-16 mmol/L 14 GLUCOSE Latest Ref Range: 70-109 mg/dL 310 (H) BUN Latest Ref Range: 7-18 mg/dL 25 (H) BUN/CREA Unknown 13.9 Creatinine Latest Ref Range: 0.60-1.30 mg/dL 1.80 (H) EGFR IF NOT Latest Ref Range: >=60 mL/min/1.73m2 27 (L) Calcium Latest Ref Range: 8.3-10.5 mg/dL 8.1 (L) B-TYPE NATRIURETIC PEPTIDE Latest Ref Range: <100 pg/mL 2368 (H) Troponin I Latest Ref Range: <0.06 ng/mL 0.04 HOSPITAL COURSE: Please refer to the H&P for full details. In short 85-year-old female with a previous hist ory of coronary artery disease and CHF developed shortness of breath associated with diaphor esis the day prior to admission without a history of chest pain. She was seen at [facility] and transferred here for further cardiac assessment. Admission she was found to be in h eart failure and had clinical bronchospasm which was thought to be cardiac in nature. She w as treated with IV diuretics with improvement in respiratory status with effective diuresis. BNP fell from approximately 2300 down to 800 prior to discharge and the patient was weaned to room air. Her creatinine on admission was 1.8 and carlos to 2.5 initially and with contin ued diuresis and blood products transfusion has settled down at 2.23 prior to discharge. e patient was also found to be iron deficient and vitamin B12 deficient. Her ferritin was 6 and a transferrin saturation of 2%. She received a total of 600 milligrams of IV iron in t he form of iron sucrose and had a low vitamin B12 level at 179 receiving 1000 micrograms IM of B12 and then thousand micrograms by mouth daily. She will need assessment of B12 in 2-3 months to ensure that she is being replaced adequately on oral therapy and once her cardiac status is stable will need to undergo colonoscopy to assess for possible GI malignancy causi ng iron deficiency. With the patient's anemia with a hematocrit of 25 she was given 1 unit transfusion and on the day of discharge has a hematocrit of 29.0. Patient has arranged foll ow-up with Dr. Scott who saw her in consultation on 04/20 and is felt to have principally isch emic cardiomyopathy and thus has been started on carvedilol 3.125 mg twice daily, low-dose a spirin, and atorvastatin. Relative to her heart she has been instructed on daily weights an d symptoms of heart failure including exertional shortness of breath and nocturnal awakening with dyspnea. She'll be discharged on furosemide 80 mg by mouth daily. Her potassiums hav e been normal despite furosemide 40 mg IV twice daily and thus no potassium supplementation will be ordered. The time of discharge she is oxygenating on room air and is a total of -4. 3 L negative since admission and I've advised her goal would be 3-5 pounds of further weight loss with diuresis prior to seeing Dr. Scott. I advised her if she loses more than 10 pound s she will need to be seen in a urgent care center or at [facility] to have renal function assessed and if she gains weight and she also needs to be seen relative to increasing doses of diuretic. I will have her followed by home health will see her following Dr. Scott's appo intment noting she is leaving to go to [facility] with her family until her follow- up appointment returning to this community on 04/19. She and her daughters have been scholarship counselor ed about her need over the next several months to undergo colonoscopy to rule out colon poly ps and tumors as an etiology for iron deficiency. Her cardiac status first has to be either noted stable or assessed by intervention. PHYSICAL EXAM: Temp: 36.2 C (97.2 F), Pulse: 80, Resp: 22, BP: 119/56 mmHg, SpO2 96 % on room air at f low rate 2L/min Temp Min: 36.1 C (97 F) Max: 36.9 C (98.4 F) Weight: 56.3 kg (124 lb 1.9 oz) Patient seen and examined by me on discharge day Greater than 30 minutes were spent on discharge and coordination of post-hospital care. Electronically signed by: Evan Lopez MD, 04/09/2016 17:53 [facility] Portions of this chart may have been created with [employer] ([employer]) voice recognition software. Occasi onal wrong-word or sound-alike substitutions may have occurred due to the inherent hinojosa itations of voice recognition software. Please read the chart carefully and recognize, using context, where these substitutions have occurred documented in this encounter Medications at Time [...] documented as of this encounter Progress Notes Tamie Vasquez RN - 04/09/2016 7:06 PM PDTPt DC'd home with daughter. IV dc'd to LFA , no redness, swelling, tenderness present. Discharge instructions, AVS, and 4 printed presc riptions given to pt. All questions answered. Valeriy De Leon MD - 04/09/2016 6:52 AM PDT PATIENT NAME: Alexsandra Hawkins : 1930: AGE: 85 y.o. ADMISSION DATE: 04/06/2016 HOSPITAL DAY NUMBER: [id number] PRIMARY CARE: Anthony Atkins DO CONSULTING PROVIDER: Valeriy Ceballos MD CARDIOLOGY PROGRESS NOTE DATE OF SERVICE: 04/09/16 SUBJECTIVE: Patient slept well overnight. She is now off oxygen supplementation. There is no chest shira n or chest discomfort both at rest and on exertion. Breathing is better. There is no palpi tation dizziness or lightheadedness. There is no ankle or leg swelling. Patient can sleep on one pillow at night without difficulty breathing. CURRENT SCHEDULED MEDS: aspirin 81 mg Oral Daily atorvaSTATin 20 mg Oral Nightly carvedilol 3.125 mg Oral BID WC cyanocobalamin 1,000 mcg Oral Daily furosemide (LASIX) IV 40 mg Intravenous BID (8 and 16) heparin 5,000 Units Subcutaneous 2 times per day IV INFUSIONS: OBJECTIVE: PHYSICAL EXAM Latest VS: BP 128/56 mmHg | Pulse 81 | Temp(Src) 36.2 C (97.2 F) (Oral) | Resp 19 | Ht 1.499 m (4' 11") | Wt 55.4 kg (122 lb 2.2 oz) | BMI 24.66 kg/m2 | SpO2 94% Admit Weight: Weight: 56.3 kg (124 lb 1.9 oz) Current weight: Weight: 55.4 kg (122 lb 2.2 oz) Vital sign ranges for last 24hrs: Input and output for last 24hrs: Temp: [36.1 C (97 F)-36.9 C (98.4 F)] 36.2 C (97.2 F) Pulse: [72-81] 81 Resp: [12-21] 19 BP: (102-133)/(36-63) 128/56 mmHg SpO2 Av.8 % Min: 92 % Max: 97 % 04/07 07 - 04/08 1900 In: 1710 [P.O.:1290] Out: 2950 [Urine:2950] Constitutional General appearance: Female individual, well developed, well nourished, well groomed, n o acute distress Cardiovascular Palp/Percussion: PMI in 5th ICS at MCL; no lifts, thrills, palp S3 or S4. Auscultation: normal S1 S2; no gallop or rub or click Murmur: none Carotid arteries: pulses 2+, symmetric, no bruits Abdominal aorta: no enlargement or bruits Pedal pulses: pulses 2+, symmetric Peripheral circulation: no cyanosis, clubbing, edema, or varicosities Gastrointestinal Abdomen: soft, non-tender Liver and spleen: no enlargement Mental Status/Neurological Orientation: oriented to time, place, and person Affect/Mood: no depression, anxiety, or agitation Respiratory Respiratory effort: no intercostal retractions or use of accessory muscles Auscultation: no rales, rhonchi, or wheezes LABS Recent Results (from the past 24 hour(s)) Type and Screen Collection Time: 04/08/16 9:24 Result Value Ref Range ABO O Rh Type Positive Antibody Screen Negative ABO Rh Collection Time: 04/08/16 9:24 Result Value Ref Range ABO O Rh Type Positive Antibody Screen Collection Time: 04/08/16 9:24 Result Value Ref Range Antibody Screen Negative PRODUCT: RBC Collection Time: 04/09/16 1:15 Result Value Ref Range Product Code RBC Leukocytes Reduced UNIT # [id number] UNIT ABO O UNIT RH POS CROSSMATCH INTERP Compatible Unit Status Transfused CBC no Differential Collection Time: 04/09/16 4:51 Result Value Ref Range WBC 9.0 4.0-11.0 K/uL RBC 3.97 3.70-5.20 M/uL Hgb 9.4 (L) 11.5-16.0 g/dL Hct 29.0 (L) 34.0-47.0 % MCV 73.0 (L) 83.0-101.0 fL MCH 23.6 (L) 28.0-35.0 pg MCHC 32.3 32.0-36.0 g/dL RDW-CV 16.7 (H) <15.0 % Platelet Count 247 140-440 K/uL MPV 8.4 fL Basic Metabolic Panel Collection Time: 04/09/16 4:51 Result Value Ref Range NA 135 (L) 136-149 mmol/L K 4.2 3.5-5.1 mmol/L CL 100 98-109 mmol/L CO2 25 24-31 mmol/L ANION GAP 10 3-16 mmol/L GLUCOSE 98 70-109 mg/dL BUN 51 (H) 7-18 mg/dL Creatinine, Serum/Plasma 2.23 (H) 0.60-1.30 mg/dL eGFR if not 21 (L) >=60 mL/min/1.73m2 CALCIUM 8.0 (L) 8.3-10.5 mg/dL BUN/CREA 22.9 B Type Natriuretic Peptide Collection Time: 04/09/16 4:51 Result Value Ref Range BNP 921 (H) <100 pg/mL ASSESSMENT: 1. Exacerbation of heart failure with reduced ejection fraction/coronary artery disease A. Echocardiogram on 04/06/16 showed Mild left atrial dilatation. Nor mal left ventricular size and wall thickness.There is a segmental wall motion abnormality wi th severe hypokinesis of the mid anterior, mid anteroseptal, distal anterior and distal sept um. Overall left ventricular systolic function is moderately decreased. The estimated ejec tion fraction is 40-45 %. Grade 1 left ventricular diastolic dysfunction. Trace aortic valve insufficiency. Mildly thickened mitral valve with [id number]-[id number] mitral valve regurgita tion. Mild mitral annular calcification. Mild tricuspid valve regurgitation. Moderate pu lmonary hypertension with a peak systole pressure of 55-60 mmHg. Dilated IVC with normal res piratory collapse. B.Persantine SPECT MPI on 04/07/16 showed Abnormal Persantine Sesta mibi myocardial perfusion study with a large size, partially reversible defect of a severe i n severity in the mid anterior, distal anterior and apex. This suggests a large size, part ial myocardial ischemia of the proximal left anterior descending artery territories. Gated S PECT reveals a normal left ventricular wall thickness with akinesis of the mid anterior, dis denzel anterior and apex. Overall, left ventricular systolic and is severely decreased. LVEF by gated SPECT is 29 %. C. Patient slept well overnight. She is now off oxygen supplementa tion. There is no chest pain or chest discomfort both at rest and on exertion. Breathing is better. She appears euvolemic. She is in a class II of NYHA functional cl ass. She would be a candidate for left heart cath to study her coronary anatomy when her kidney function is improving. Would add SURESH inhibitor when kidney function is better. 2. Stage 4 kidney failure 3. Anemia 4. Smoking A. She smoke at least a half a pack of cigarettes for more than 30 years. PLAN: 1. Continue with current medication. 2. Follow-up in my office in 2-3 weeks. Portions of this report were transcribed using voice recognition software. Every effort wa s made to ensure accuracy; however, inadvertent computerized electrician aircraft errors may be pre sent. Electronically signed by: Valeriy Ceballos MD 04/09/2016 6:52 Evan Parrish MD - 04/08/2016 11:03 AM PDTFormzulma tting of this note might be different from the original. [facility] Hospitalist Progress Note Alexsandra Hawkins is a 85 y.o. female ASSESSMENT and PLAN: Active Hospital Problems *CHF (congestive heart failure) Patient's LVEF in discussion with Dr. Scott is significantly impaired likely from anterior w all ischemia. She currently is on room air. Her hematocrit today is 25.9; 24.4 yesterday w ith a hemoglobin around 8. Discussed with the patient the option of transfusion noting thus far she has received 4 mg of IV iron sucrose and vitamin B12. Given her reversible area of ischemia I'm recommending that we transfuse her shooting for a hematocrit of at least 28-30 . She will at time of discharge will be sent home on both Niferex and vitamin B12 with fausto mmendation for early follow-up. I also discussed her need with her and her family present f or colonoscopy once her cardiac issue is stabilized. We discussed the possibility of colon cancer. I reviewed with her the risk of infection from HIV, hepatitis C, and hepatitis B as sociated with transfusions advising other risk in aggregate currently is around 1 in 100,000 to my understanding. At this point she agrees to transfusion and we'll give 1 unit with 40 mg of IV furosemide. Otherwise will continue to mobilize the patient. Anemia Patient has both iron deficiency and B12 deficiency and these will be treated. We discusse d the issue of need for evaluation of her bowel to exclude colon malignancy once her heart a ssessment has been completed Acute on chronic renal insufficiency Patient has had the development of worsening renal function with diuresis with a baseline c reatinine of 1.8 and BUN of 25 on admission associated with a BNP of 2368. Current creatini ne is 2.5 with a BUN of 55 with B and P down to 638. Visual continue to be diuresed for res olution or heart failure hoping with improved LV function and resolution of CHF that improve d renal perfusion may occur. Acute respiratory failure No documentation of this diagnosis at the time of admission patient's respiratory rate of 1 9 on 2 L nasal cannula. In addition no documentation of oxygenation on room air on the day of admission. SUBJECTIVE: She currently denies active medical problems with respect to chest pain or dyspnea. She denies nausea. VITALS: Temp: 36.1 C (97 F), Pulse: 75, Resp: 16, BP: 109/54 mmHg, SpO2 92 % on room air at lemuel w rate 2L/min Temp Min: 36.1 C (97 F) Max: 36.6 C (97.9 F) Weight: 56.3 kg (124 lb 1.9 oz) Intake/Output Summary (Last 24 hours) at 04/08/16 1103 Last data filed at 04/08/16 1000 Gross per 24 hour Intake 920 ml Output 2225 ml Net -1305 ml PHYSICAL EXAM: Cardiovascular: Regular rate and rhythm Respiratory: Diminished in the bases, improved compared with yesterday, but right basilar crackles notable. Abdomen: soft and nontender Extremities: Without edema DIAGNOSTIC STUDIES: Available data and images were reviewed personally. Significant results and findings are a ddressed here or in the Assessment and Plan. Lab Results Component Value Date HGB 8.1* 04/08/2016 HCT 25.9* 04/08/2016 PLT 264 04/08/2016 WBC 13.0* 04/08/2016 Lab Results Component Value Date NA 134* 04/08/2016 K 4.5 04/08/2016 CL 99 04/08/2016 CO2 25 04/08/2016 CREA 2.50* 04/08/2016 BUN 55* 04/08/2016 BNP 638* 04/08/2016 No results found for: POCGLU No results found for: POCGLU Xr Chest Pa And Lateral 04/07/2016 TWO-VIEW CHEST: 04/07/2016 2:14 PM CLINICAL HISTORY: chf COMPARISON: 04/06/2016 F INDINGS: Stable moderate cardiomegaly. Aorta is tortuous and stable. No mediastinal widening . Pulmonary vasculature is prominent, similar to the prior exam. Persistent diffuse increas e in lung density with a mixed interstitial and airspace pattern. This would be consistent w ith pulmonary edema. This is also similar to prior. Increased AP diameter with flattening of the hemidiaphragms. Lateral view shows small posterior layering pleural effusion. No areas of focal pulmonary consolidation. Severe osteopenia with multiple vertebral compression def ormities including T6, T11 and L1. IMPRESSION - 1. Persistent cardiomegaly, pulmonary vasc ular congestion, pleural effusion and diffuse increase in lung density consistent with mild congestive heart failure. 2. Osteopenia with multiple vertebral compression deformities. D ictated and Signed by: Sergio Aleman MD Electronically signed: 04/07/2016 2:36 PM Xr Chest Ap Portable 04/06/2016 EXAM: XR CHEST AP PORTABLE dated 04/06/2016 11:49 AM HISTORY: chf eval Compariso n: None. TECHNIQUE: A single portable view of the chest. FINDINGS: Symmetric low lung volu mes. Prominence of the pulmonary interstitium and vasculature. Blunting of the costophreni c angles. Moderate cardiomegaly. No pneumothorax. No visible acute osseous abnormalities. IMPRESSION - Findings would be consistent with the given history of congestive heart allan lure. Dictated and Signed by: Kalen Cordova MD Electronically signed: 04/06/2016 12:00 P M Total time of approximately 25 minutes was spent with the patient and/or patient's family, and/or on the patient's floor/unit, of which more than 50% was spent counseling and/or coord ination the patient's care as outlined above. Evan Lopez 04/08/2016 11:03 [facility] Portions of this chart may have been created with [employer] (P) voice recognition software. Occasi onal wrong-word or sound-alike substitutions may have occurred due to the inherent hinojosa itations of voice recognition software. Please read the chart carefully and recognize, using context, where these substitutions have occurred Valeriy De Leon MD - 04/08/2016 6:50 AM PDT PATIENT NAME: Alexsandra Hawkins : 1930: AGE: 85 y.o. ADMISSION DATE: 04/06/2016 HOSPITAL DAY NUMBER: 2 PRIMARY CARE: Anthony Atkins DO CONSULTING PROVIDER: Valeriy Ceballos MD CARDIOLOGY PROGRESS NOTE DATE OF SERVICE: 04/08/16 SUBJECTIVE: Patient was added on aspirin and Coreg. She underwent Persantine SPECT MPI which revealed outside anterior wall partially reversible defect with LVEF of 29%. She is doing well with initiating dose of Coreg. Her breathing is better. She is now zahida thing on room air with oxygen sat of 93%. There is no chest pain or chest discomfort both at rest and on exertion. There is no palpitation dizziness or lightheadedness. There is no ankle or leg swelling. Patient can sleep on one pillow at night without difficulty breathi ng. Telemetry shows no significant arrhythmia. CURRENT SCHEDULED MEDS: aspirin 81 mg Oral Daily carvedilol 3.125 mg Oral BID WC cyanocobalamin 1,000 mcg Oral Daily furosemide (LASIX) IV 40 mg Intravenous BID (8 and 16) heparin 5,000 Units Subcutaneous 2 times per day iron sucrose (VENOFER) IVPB 200 mg Intravenous Once IV INFUSIONS: OBJECTIVE: PHYSICAL EXAM Latest VS: BP 112/50 mmHg | Pulse 78 | Temp(Src) 36.4 C (97.5 F) (Oral) | Resp 18 | Ht 1.499 m (4' 11") | Wt 56.246 kg (124 lb) | BMI 25.03 kg/m2 | SpO2 93% Admit Weight: Weight: 56.3 kg (124 lb 1.9 oz) Current weight: Weight: 56.246 kg (124 lb) Vital sign ranges for last 24hrs: Input and output for last 24hrs: Temp: [36.3 C (97.3 F)-36.6 C (97.9 F)] 36.4 C (97.5 F) Pulse: [74-89] 78 Resp: [16-22] 18 BP: (112-129)/(45-61) 112/50 mmHg SpO2 Av.6 % Min: 93 % Max: 95 % 04/06 0701 - 04/07 1900 In: 2350 [P.O.:2350] Out: 3150 [Urine:3150] Constitutional General appearance: Female individual, well developed, well nourished, well groomed, n o acute distress Cardiovascular Palp/Percussion: PMI in 5th ICS at MCL; no lifts, thrills, palp S3 or S4. Auscultation: normal S1 S2; no gallop or rub or click Murmur: none Carotid arteries: pulses 2+, symmetric, no bruits Abdominal aorta: no enlargement or bruits Pedal pulses: pulses 2+, symmetric Peripheral circulation: no cyanosis, clubbing, edema, or varicosities Gastrointestinal Abdomen: soft, non-tender Liver and spleen: no enlargement Mental Status/Neurological Orientation: oriented to time, place, and person Affect/Mood: no depression, anxiety, or agitation Respiratory Respiratory effort: no intercostal retractions or use of accessory muscles Auscultation: Minimal bilateral rales. LABS Recent Results (from the past 24 hour(s)) Vitamin B-12 Collection Time: 04/07/16 14:34 Result Value Ref Range VITAMIN B-12 179 (L) 180-914 pg/mL Iron and Transferrin Collection Time: 04/07/16 14:34 Result Value Ref Range IRON 10 (L) 40-150 ug/dL TRANSFERRIN 364.0 240.0-480.0 mg/dL TIBC 510 (H) 235-425 ug/dL % SATURATION 2.0 (L) 20.0-55.0 % Folate Collection Time: 04/07/16 14:34 Result Value Ref Range FOLATE 12.7 >5.8 ng/mL Ferritin Collection Time: 04/07/16 14:34 Result Value Ref Range FERRITIN 6 (L) 11-<307 ng/mL CBC with Differential Collection Time: 04/08/16 3:34 Result Value Ref Range WBC 13.0 (H) 4.0-11.0 K/uL RBC 3.58 (L) 3.70-5.20 M/uL Hgb 8.1 (L) 11.5-16.0 g/dL Hct 25.9 (L) 34.0-47.0 % MCV 72.4 (L) 83.0-101.0 fL MCH 22.8 (L) 28.0-35.0 pg MCHC 31.4 (L) 32.0-36.0 g/dL RDW-CV 16.1 (H) <15.0 % Platelet Count 264 140-440 K/uL MPV 8.5 fL % Neutrophils 81.9 45.0-82.0 % % Lymphocytes 9.4 (L) 20.0-45.0 % % Monocytes 6.3 4.0-12.0 % % Eosinophils 2.1 0.0-5.0 % % Basophils 0.3 0.0-1.0 % Absolute Neutrophils 10.60 (H) 1.80-8.50 K/uL Absolute Lymphocytes 1.20 0.60-3.20 K/uL Absolute Monocytes 0.80 0.00-1.00 K/uL Absolute Eosinophils 0.30 0.00-0.40 K/uL Absolute Basophils 0.00 0.00-0.10 K/uL Basic Metabolic Panel Collection Time: 04/08/16 3:34 Result Value Ref Range NA 134 (L) 136-149 mmol/L K 4.5 3.5-5.1 mmol/L CL 99 98-109 mmol/L CO2 25 24-31 mmol/L ANION GAP 10 3-16 mmol/L GLUCOSE 106 70-109 mg/dL BUN 55 (H) 7-18 mg/dL Creatinine, Serum/Plasma 2.50 (H) 0.60-1.30 mg/dL eGFR if not 18 (L) >=60 mL/min/1.73m2 CALCIUM 8.2 (L) 8.3-10.5 mg/dL BUN/CREA 22.0 B Type Natriuretic Peptide Collection Time: 04/08/16 3:34 Result Value Ref Range BNP 638 (H) <100 pg/mL Extra Blood Bank Tube Collection Time: 04/08/16 3:34 Result Value Ref Range Hold BB Hold Specimen ASSESSMENT: 1. Exacerbation of heart failure with reduced ejection fraction/coronary artery disease A. Echocardiogram on 04/06/16 showed Mild left atrial dilatation. Nor mal left ventricular size and wall thickness.There is a segmental wall motion abnormality wi th severe hypokinesis of the mid anterior, mid anteroseptal, distal anterior and distal sept um. Overall left ventricular systolic function is moderately decreased. The estimated ejec tion fraction is 40-45 %. Grade 1 left ventricular diastolic dysfunction. Trace aortic valve insufficiency. Mildly thickened mitral valve with [id number] mitral valve regurgita tion. Mild mitral annular calcification. Mild tricuspid valve regurgitation. Moderate pu lmonary hypertension with a peak systole pressure of 55-60 mmHg. Dilated IVC with normal res piratory collapse. B.Persantine SPECT MPI on 04/07/16 showed Abnormal Persantine Sestam ibi myocardial perfusion study with a large size, partially reversible defect of a severe in severity in the mid anterior, distal anterior and apex. This suggests a large size, parti al myocardial ischemia of the proximal left anterior descending artery territories. Gated SP ECT reveals a normal left ventricular wall thickness with akinesis of the mid anterior, dist al anterior and apex. Overall, left ventricular systolic and is severely decreased. LVEF by gated SPECT is 29 %. C. She is doing well with initiating dose of Coreg. Her breathing is better. She is now breathing on room air with oxygen sat of 93%. There is no chest pain or chest discomfort bot h at rest and on exertion. There is no palpitation dizziness or lightheadedness. There i s no ankle or leg swelling. Patient can sleep on one pillow at night without difficulty gely athing. Telemetry shows no significant arrhythmia. She appears euvolemic. She is in a class II of NYHA functional class. BNP has come down to 638. She would be a candidate for left heart cath to study her coronary anatomy when her kidney function is improving. Would add SURESH inhibitor when kidney function is better. 2. Stage 4 kidney failure 3. Anemia 4. Smoking A. She smoke at least a half a pack of cigarettes for more than 30 years. PLAN: I spend time at length talking about natural course, treatment and prognosis of ischemic c ardiomyopathy 2. Add Lipitor 20 mg once a day. 3. I recommend smoking cessation. At least 3-10 min spent counseling for smoking cessatio n. Portions of this report were transcribed using voice recognition software. Every effort wa s made to ensure accuracy; however, inadvertent computerized electrician aircraft errors may be pre sent. Electronically signed by: Valeriy Ceballos MD 04/08/2016 6:50 Evan Parrish MD - 04/07/2016 1:16 PM PDTForma tting of this note might be different from the original. [facility] Hospitalist Progress Note Alexsandra Hawkins is a 85 y.o. female ASSESSMENT and PLAN: Active Hospital Problems *CHF (congestive heart failure) Patient's echo shows LVEF of 0.5-0.55 with anterior wall hypokinesis. Chest x-ray on admis dave was supportive of the diagnosis of left heart failure. Her IVC collapses suggesting th ere is not a right-sided component. When admitted repeat her chest x-ray and then make fausto mmendations relative to diuretic therapy. She is recently been weaned from cannula to room air. We will progressively ambulate. Anemia Appears to be iron deficient with an MCV of 72. This will be confirmed and Hemoccults will be checked. Certainly a GI workup versus cardiac workup will need to be thought through re lative to timing of each. Acute respiratory failure SUBJECTIVE: She currently denies active medical problems with respect to chest pain or dyspnea. She denies nausea. VITALS: Temp: 36.3 C (97.3 F), Pulse: 74, Resp: 22, BP: 123/46 mmHg, SpO2 95 % on room air at f low rate 2L/min Temp Min: 36.3 C (97.3 F) Max: 37 C (98.6 F) Weight: 56.3 kg (124 lb 1.9 oz) Intake/Output Summary (Last 24 hours) at 04/07/16 1316 Last data filed at 04/07/16 0941 Gross per 24 hour Intake 1670 ml Output 2025 ml Net -355 ml PHYSICAL EXAM: Cardiovascular: Regular rate and rhythm Respiratory: Diminished in the bases but without crackles or wheezes Abdomen: soft and nontender Extremities: Without edema DIAGNOSTIC STUDIES: Available data and images were reviewed personally. Significant results and findings are a ddressed here or in the Assessment and Plan. Lab Results Component Value Date HGB 7.7* 04/07/2016 HCT 24.4* 04/07/2016 PLT 256 04/07/2016 WBC 14.7* 04/07/2016 Lab Results Component Value Date NA 134* 04/07/2016 K 4.3 04/07/2016 CL 103 04/07/2016 CO2 23* 04/07/2016 CREA 2.54* 04/07/2016 BUN 40* 04/07/2016 BNP 2368* 04/06/2016 No results found for: POCGLU No results found for: POCGLU Xr Chest Ap Portable 04/06/2016 EXAM: XR CHEST AP PORTABLE dated 04/06/2016 11:49 AM HISTORY: chf eval Compariso n: None. TECHNIQUE: A single portable view of the chest. FINDINGS: Symmetric low lung volu mes. Prominence of the pulmonary interstitium and vasculature. Blunting of the costophreni c angles. Moderate cardiomegaly. No pneumothorax. No visible acute osseous abnormalities. IMPRESSION - Findings would be consistent with the given history of congestive heart allan lure. Dictated and Signed by: Kalen Cordova MD Electronically signed: 04/06/2016 12:00 P M Total time of approximately 25 minutes was spent with the patient and/or patient's family, and/or on the patient's floor/unit, of which more than 50% was spent counseling and/or coord ination the patient's care as outlined above. Evan Lopez 04/07/2016 13:16 [facility] Portions of this chart may have been created with [employer] (P) voice recognition software. Occasi onal wrong-word or sound-alike substitutions may have occurred due to the inherent hinojosa itations of voice recognition software. Please read the chart carefully and recognize, using context, where these substitutions have occurred documented in this enc ounter H&P Notes Chirag Mae MD - 04/06/2016 10:16 AM PDT [facility] HISTORY AND PHYSICAL Pt. Name/Age/: Alexsandra Hawkins 85 y.o. 1930 Date of admission: 04/06/2016 Admitting Physician: Chirag Mae MD Primary Care Provider: Anthony Atkins DO CHIEF COMPLAINT: Shortness of breath HISTORY OF PRESENT ILLNESS: This is a 85 y.o. female with a history of CHF who is taken in transfer from [facility]. Patient developed shortness of breath yesterday, which was associated with diaphoresis. She denied chest pain, lower extremity edema or nausea or vomiting. She was seen in the ER at [facility] and was transferred here for a higher level of care as they had no ICU beds. On further discussion, the patient had a CHF exacerbation several years ago ( she could not determine the timing of the event) and was sent to [facility] for care. She continues to see Ca rdiology there on a yearly basis now. The patient is a daily smoker, though smokes only 1-2 cigarettes daily. She denies a histor y of COPD. PAST MEDICAL and SURGICAL HISTORY: 1. CHF FAMILY HISTORY: 1. Father - CAD with AMI. 2. Mother during the patient's childhood SOCIAL HISTORY: Daily smoker of 1-2 cigarettes Occasional drink. No drugs REVIEW OF SYSTEMS: Significant for new onset shortness of breath, with diaphoresis. A complete 14-system revi ew was otherwise negative except as noted in the HPI. HOME MEDICATIONS: There are no discharge medications for this patient. ALLERGIES: No Known Allergies VITAL SIGNS: Temp: 36.8 C (98.3 F), Pulse: 112, Resp: 19, BP: 115/46 mmHg, SpO2 97 % on at flow ra te L/min Temp Min: 36.7 C (98.1 F) Max: 36.8 C (98.3 F) Weight: 56.3 kg (124 lb 1.9 oz) PHYSICAL EXAMINATION: Gen June - alert, cooperative and no distress, Head - Normocephalic, without obvious abnormality Eyes - PERRL, conjunctiva/corneas clear ENT - mucous membranes moist Neck - supple Lungs - bibasilar rales Heart - normal rate, regular rhythm, normal S1, S2, no murmurs, rubs, clicks or gallops Abdomen - soft, non-tender, without masses or organomegaly Extremities - no peripheral edema, no clubbing or cyanosis Skin - no rashes, no ecchymoses, no petechiae Neurologic - Alert and oriented x 3. CN II-XII intact. DIAGNOSTIC STUDIES: Available data and images were reviewed personally. Significant results and findings are a ddressed here or in the Assessment and Plan. No results found for this or any previous visit (from the past 24 hour(s)). No results found. EKG: Reviewed independently by me. The tracing shows CXR: Reviewed independently by me. The CXR shows ASSESSMENT and PLAN: 1. CHF exacerbation - pending echo evaluation. Diureses. Trend cardiac enzymes 2. Acute respiratory failure - supplemental oxygen 3. Daily tobacco use Addend: Discussed echo results with Dr. Gardner. The patient to be seen in evaluation Cardiology tomor row. She may need an angiogram for further evaluation. DVT Prophylaxis heparin Code Status Full Code. CMS Documentation I expect this patient will be hospitalized for greater than 2-midnights and expect the post -hospital plan to be determined once additional information is obtained. Total of 37 minutes were required to complete the admission process. Reviewed and summariz ed past medical records. Medical Decisionmaker: pt is Electronically signed by: Chirag Mae MD 04/06/2016 10:16 [facility] Portions of this chart may have been created with [employer] ([employer]) voice recognition software. Occasi onal wrong-word or sound-alike substitutions may have occurred due to the inherent hinojosa itations of voice recognition software. Please read the chart carefully and recognize, using context, where these substitutions have occurred documented in this encounter Consult Notes Valeriy Ceballos MD - 04/07/2016 7:21 AM PDTFormatting of this note might be different f rom the original. PATIENT NAME: Alexsandra Hawkins : 1930: AGE: 85 y.o. ADMISSION DATE: 04/06/2016 HOSPITAL DAY NUMBER: 1 PRIMARY CARE: Anthony Atkins DO REFERRING PROVIDER: Chirag Mae M.D. CONSULTING PROVIDER: Valeriy Ceballos MD CARDIOLOGY CONSULTATION DATE OF CONSULTATION: 04/07/16 REASON FOR CONSULT: Exacerbation of heart failure with reduced ejection fraction HISTORY OF PRESENT ILLNESS: Alexsandra Hawkins is a 85 y.o. female with a history of heart failure, smoker. She was admitted to [facility] on 04/06/2016 for CHF (congestive heart failur e) . She was known to have history of heart failure and was seen by watch assembly inspector in [facility], last time 2 years ago. She was in her usual state of health until 04/05/16 when she had th e acute onset of shortness of breath or staying at a hotel of [employer]. She was se en at the ED of [facility] in [place] and was transferred to [facility]. It was noted that her BNP is markedly elevated 2368. Troponin is normal. She was treat ed for congestive heart failure with intravenous furosemide. Echocardiogram on 04/06/16 shows a severe hypokinesis of the anterior wall. Today, during interview with me, patient was accompanied by her daughter. She is sitting i n the recliner. She said her breathing is better with the help of Lasix. She denies any ch est pain or chest discomfort. He has a sedentary lifestyle and enjoys gambling at [employer]. She been smoking between half to 1 pack of cigarette for so many years. She mervin es palpitation, dizziness or lightheadedness. She complained of leg cramp but no leg swelli ng. PAST MEDICAL HISTORY No past medical history on file. CURRENT PROBLEMS Principal Problem: CHF (congestive heart failure) Active Problems: Shortness of breath Acute respiratory failure PAST SURGICAL HISTORY (INCLUDING PROCEDURES) No past surgical history on file. FAMILY HISTORY No family history on file. SOCIAL HISTORY History Social History Marital Status: Spouse Name: N/A Number of Children: N/A Years of Education: N/A Occupational History Not on file. Social History Main Topics Smoking status: Current Every Day Smoker -- 0.25 packs/day for 30 years Smokeless tobacco: Not on file Alcohol Use: Not on file Comment: ~ once every 6 mo- 1 dmitri sloan Drug Use: No Sexual Activity: Not Currently Other Topics Concern Not on file Social History Narrative No narrative on file OUTPATIENT MEDICATIONS No prescriptions prior to admission CURRENT SCHEDULED MEDS: furosemide (LASIX) IV 40 mg Intravenous BID (8 and 16) heparin 5,000 Units Subcutaneous 2 times per day IV INFUSIONS: ALLERGIES No Known Allergies REVIEW OF SYSTEMS Constitutional: Complains of feeling fatigued. Denies fever, chills, weight loss, sudden weight gain. Eyes: Denies double vision, sudden vision loss. Ears/Nose/Throat: Denies tinnitus, decreased hearing, nosebleeds. Cardiovascular: Denies chest pains, palpitations, syncope, presyncope, dizziness, orthopne a, PND, peripheral edema. Respiratory: Complaining of dyspnea with exertion, dyspnea at rest. Denies cough, wheezin g, sleep apnea, snoring. Gastrointestinal: Denies nausea, vomiting, diarrhea, abdominal pain. Genitourinary: Denies dysuria, increased urinary frequency, nocturia. Musculoskeletal: Denies back pain, arthritis, muscle weakness, myalgias. Skin: Denies rash, itching, suspicious lesions. Neurologic: Denies transient paralysis, paresthesias, seizures, tremors, memory impairmen t, depression, sciatica, balance problems, headache, anxiety. Heme/Lymphatic: Denies abnormal bruising, bleeding, enlarged lymph nodes. Endocrine: Denies cold intolerance, heat intolerance, polydipsia, polyuria. PHYSICAL EXAM Latest VS: BP 117/65 mmHg | Pulse 91 | Temp(Src) 36.4 C (97.5 F) (Oral) | Resp 15 | Ht 1.499 m (4' 11") | Wt 56.3 kg (124 lb 1.9 oz) | BMI 25.06 kg/m2 | SpO2 98% Vital sign ranges for last 24hrs: Input and output for last 24hrs: Temp: [36.4 C (97.5 F)-37.1 C (98.8 F)] 36.4 C (97.5 F) Pulse: [91-116] 91 Resp: [15-33] 15 BP: (115-141)/(46-78) 117/65 mmHg SpO2 Av.5 % Min: 96 % Max: 100 % Flow (L/min) Av Min: 2 Max: 2 04/05 1901 - 04/07 0700 In: 2109 [P.O.:2109] Out: 2725 [Urine:2725] Body mass index is 25.06 kg/(m^2).; Body surface area is 1.53 meters squared. Constitutional General appearance: Female individual, sitting on the recliner, well developed, well n ourished, well groomed, no acute distress Cardiovascular NYHA Class: III- Symptoms with moderate exertion Palp/Percussion: PMI in 5th ICS at MCL; no lifts, thrills, palp S3 or S4. Auscultation: normal S1 S2; no gallop or rub or click Murmur: Grade 2/6 holosystolic murmur along left sternal border Carotid arteries: pulses 2+, symmetric, no bruits Abdominal aorta: no enlargement or bruits Femoral arteries: pulses 2+, symmetric Pedal pulses: pulses 2+, symmetric Peripheral circulation: no cyanosis, clubbing, edema, or varicosities Gastrointestinal Abdomen: soft, non-tender, no masses Liver and spleen: no enlargement Mental Status/Neurological Orientation: oriented to time, place, and person Affect/Mood: no depression, anxiety, or agitation Respiratory Respiratory effort: no intercostal retractions or use of accessory muscles Auscultation: Bilateral basal rales. Eyes Conjunctiva & lids: conjunctiva and lids normal Ears, Nose and Throat Lips: no pallor or cyanosis Neck Jugular veins: no significant JVD; no a, v or decker waves Extremities Digits and nails: no clubbing, cyanosis, or petechiae Skin Inspection: no visible rashes, lesions, or ulcerations LABS Recent Results (from the past 24 hour(s)) Basic Metabolic Panel Collection Time: 04/06/16 10:06 Result Value Ref Range NA 139 136-149 mmol/L K 3.7 3.5-5.1 mmol/L CL 106 98-109 mmol/L CO2 19 (L) 24-31 mmol/L ANION GAP 14 3-16 mmol/L GLUCOSE 310 (H) 70-109 mg/dL BUN 25 (H) 7-18 mg/dL Creatinine, Serum/Plasma 1.80 (H) 0.60-1.30 mg/dL eGFR if not 27 (L) >=60 mL/min/1.73m2 CALCIUM 8.1 (L) 8.3-10.5 mg/dL BUN/CREA 13.9 B Type Natriuretic Peptide Collection Time: 04/06/16 10:06 Result Value Ref Range BNP 2368 (H) <100 pg/mL Troponin I Collection Time: 04/06/16 10:06 Result Value Ref Range Troponin I 0.04 <0.06 ng/mL CBC with Differential Collection Time: 04/06/16 10:07 Result Value Ref Range WBC 9.9 4.0-11.0 K/uL RBC 3.53 (L) 3.70-5.20 M/uL Hgb 8.1 (L) 11.5-16.0 g/dL Hct 25.6 (L) 34.0-47.0 % MCV 72.4 (L) 83.0-101.0 fL MCH 22.9 (L) 28.0-35.0 pg MCHC 31.6 (L) 32.0-36.0 g/dL RDW-CV 16.1 (H) <15.0 % Platelet Count 271 140-440 K/uL MPV 8.5 fL % Neutrophils 97.8 (H) 45.0-82.0 % % Lymphocytes 1.7 (L) 20.0-45.0 % % Monocytes 0.4 (L) 4.0-12.0 % % Eosinophils 0.0 0.0-5.0 % % Basophils 0.1 0.0-1.0 % Absolute Neutrophils 9.70 (H) 1.80-8.50 K/uL Absolute Lymphocytes 0.20 (L) 0.60-3.20 K/uL Absolute Monocytes 0.00 0.00-1.00 K/uL Absolute Eosinophils 0.00 0.00-0.40 K/uL Absolute Basophils 0.00 0.00-0.10 K/uL ECG 12 lead Collection Time: 04/06/16 13:46 Result Value Ref Range VENTRICULAR RATE EKG 115 BPM ATRIAL RATE 115 BPM P-R INTERVAL 120 ms QRS DURATION 86 ms Q-T INTERVAL 298 ms Q-T INTERVAL (CORRECTED) 412 ms P WAVE AXIS 52 degrees QRS AXIS 31 degrees T AXIS 97 degrees INTERPRETATION TEXT Sinus tachycardia with frequent premature ventricular complexes incomplete right bundle branch block nonspecific ST and T-wave abnormalities particularly in anterolateral/lateral and inferior leads: Consider ischemia Abnormal ECG No previous ECGs available Confirmed by GAURI DAVILA MD ([id number]) on 04/07/2016 6:58:04 AM Troponin I Collection Time: 04/06/16 16:43 Result Value Ref Range Troponin I 0.05 <0.06 ng/mL Troponin I Collection Time: 04/06/16 22:24 Result Value Ref Range Troponin I 0.06 (H) <0.06 ng/mL Basic Metabolic Panel Collection Time: 04/07/16 4:02 Result Value Ref Range NA 134 (L) 136-149 mmol/L K 4.3 3.5-5.1 mmol/L CL 103 98-109 mmol/L CO2 23 (L) 24-31 mmol/L ANION GAP 8 3-16 mmol/L GLUCOSE 151 (H) 70-109 mg/dL BUN 40 (H) 7-18 mg/dL Creatinine, Serum/Plasma 2.54 (H) 0.60-1.30 mg/dL eGFR if not 18 (L) >=60 mL/min/1.73m2 CALCIUM 8.3 8.3-10.5 mg/dL BUN/CREA 15.7 CBC no Differential Collection Time: 04/07/16 4:02 Result Value Ref Range WBC 14.7 (H) 4.0-11.0 K/uL RBC 3.38 (L) 3.70-5.20 M/uL Hgb 7.7 (L) 11.5-16.0 g/dL Hct 24.4 (L) 34.0-47.0 % MCV 72.2 (L) 83.0-101.0 fL MCH 22.7 (L) 28.0-35.0 pg MCHC 31.4 (L) 32.0-36.0 g/dL RDW-CV 16.3 (H) <15.0 % Platelet Count 256 140-440 K/uL MPV 8.4 fL IMAGING Xr Chest Ap Portable 04/06/2016 EXAM: XR CHEST AP PORTABLE dated 04/06/2016 11:49 AM IMPRESSION - Findings wo uld be consistent with the given history of congestive heart failure. Dictated and Signed b y: Kalen Cordova MD Electronically signed: 04/06/2016 12:00 PM ECG: Sinus tachycardia, frequent PVCs, nonspecific ST-T abnormalities. ASSESSMENT: 1. Exacerbation of heart failure with reduced ejection fraction suggesting myocardial isch emia A. Echocardiogram on 04/06/16 showed Mild left atrial dilatation. Normal left ventricular si ze and wall thickness.There is a segmental wall motion abnormality with severe hypokinesis o f the mid anterior, mid anteroseptal, distal anterior and distal septum. Overall left vent ricular systolic function is low normal The estimated ejection fraction is 50-55 %. Grade 1 left ventricular diastolic dysfunction. Trace aortic valve insufficiency. Mildly thicken ed mitral valve with [id number] mitral valve regurgitation. Mild mitral annular calci fication. Mild tricuspid valve regurgitation. Moderate pulmonary hypertension with a peak systole pressure of 55-60 mmHg. Dilated IVC with normal respiratory collapse. B. patient presents with acute onset of shortness of breath, dyspnea and exertion, feeling fatigued. She has signs and symptoms of overt congestive heart failure. BNP is markedly e levated at 2368. Troponin is negative. So far, she complained of no chest pain. She is in a class III of NYHA functional class. Patient is a long-time smoker. She is a candidate for a pharmacologic stress test to assess for potential myocardial isch emia. 2. Stage 4 kidney failure 3. Anemia 4. Smoking PLAN: 1. She is a candidate for a pharmacologic stress test to assess for potential myocardial is chemia. 2. Start aspirin, carvedilol. SURESH inhibitor and ARB's is on hold for now due to a kidney failure. 3. I spend time at length talking about natural course, treatment and prognosis of exacerb ation of heart failure with reduced ejection fraction suggesting myocardial ischemia. 4. I recommend smoking cessation. At least 3-10 min spent counseling for smoking cessation. Thank you for including me in the care of this patient. Electronically signed by: Valeriy Ceballos MD [facility] 04/07/2016 7:21 Portions of this chart may have been created with [employer] voice recognition software. Occasi onal wrong-word or sound-alike substitutions may have occurred due to the inherent hinojosa itations of voice recognition software. Please read the chart carefully and recognize, using context, where these substitutions have occurred. documented in this encounter Miscellaneous Notes Plan of Care - Julianna Lowery PTA - 04/10/2016 2:39 PM PDTProblem: Patient Care Overview (Adult) Goal: Care Team Goals & Evaluation PROBLEM-RELATED GOALS: Wean Off O2 by 04/08/16 Breath sounds will be consistent with baseline function by 04/10/16. 3. Modified independent in room and haque by 04/11/16 STRATEGY TO ACHIEVE GOALS: Monitor O2 saturations at least once per shift. Administer Duoneb medications as needed for wheezing or SOB. - Active participation in all PT interventions - Out of bed for all meals RESTRAINT-RELATED GOALS: STRATEGIES TO ACHIEVE RESTRAINT GOALS: Missed Visit Patient Information Patient Name: Alexsandra Hawkins Date of : 1930 Age: 85 y.o. The patient was unable to be seen for today's scheduled visit due to being d/c prior to vis it. Plan: d/c Electronically signed by: Julianna Lowery PTA, 04/10/2016 14:39 lan of Care - Julianna Webb PTA - 04/09/2016 3:14 PM PDTProblem: Patient Care Overview (Adult) Goal: Care Team Goals & Evaluation PROBLEM-RELATED GOALS: Wean Off O2 by 04/08/16 Breath sounds will be consistent with baseline function by 04/10/16. 3. Modified independent in room and haque by 04/11/16 STRATEGY TO ACHIEVE GOALS: Monitor O2 saturations at least once per shift. Administer Duoneb medications as needed for wheezing or SOB. - Active participation in all PT interventions - Out of bed for all meals RESTRAINT-RELATED GOALS: STRATEGIES TO ACHIEVE RESTRAINT GOALS: Physical Therapy Daily Treatment Note Patient Information Patient Name: Alexsandra Hawkins Date of : 1930 Age: 85 y.o. Precautions/Limitations: oxygen therapy device and L/min Left Upper Extremity Weight-Bearing: full weight-bearing Right Upper Extremity Weight-Bearing: full weight-bearing Left Lower Extremity Weight-Bearing: full weight-bearing Right Lower Extremity Weight-Bearing: full weight-bearing History of Presenting Problem: mobility limitations s/p CHF exacerbation. Pt has hx of CHF and had an exacerbation several years ago and was treated at [facility]. She has been stable sin ce then. She continues to smoke daily, pt reports 1-2 a day. PT Diagnosis: Impaired mobility Start Time: 1434 Stop time: 1505 Time Calculation: 31 minutes Missed Treatment Time: minutes Total Treatment Time: 31 minutes TimedTreatment Code Minutes: 30 minutes Subjective: pt is hopeful to go home soon. She has no pain c/o's and daughter is present f or tx. She had a few questions re her status and deferred to Dr. Lopez. Objective: Treatment Provided: bed mobility, transfers gt and gentle balance act. Education: inst pt and daughter to take short frequent walks with nursing as well Patient Status/Goals: Reflects last filed data of patient status; may be from multiple contributors. Gait steady without ad. able to amb retro and side step without lob and wihtout MAS assist. Level of [place] : supervision required Assistive Device: none Distance (feet): 50 feet Impairments: impaired balance Stairs Transfers Sit-Stand, Level of [place]: independent Stand-Sit, Level of [place]: independent [id number], Assistive Device: 4 wheeled walker (4WW) Safety Issues: balance decreased during turns Impairments: impaired balance (Impaired activity tolerance) Bed Mobility Assistive Device: none Supine to Sit, Level of [place]: independent Sit to Supine, Level of [place]: independent Impairments: impaired balance (decreased functional activity tolerance) Wheelchair Mobility Balance Therapeutic Exercise Functional Endurance ROM ROM Testing Results: no range of motion deficits identified Strength Strength Testing Results: no strength deficits were identified Coordination Vision Muscle Tone STG GOALS Bed Mobility Goal, Activity Type: all bed mobility activities [place] Level: independent Assistive Device: none Time to Achieve: 5 - 7 days Goal Status: met Transfer Training Goal, Activity Type: sit to stand/stand to sit [place] Level: modified independence Assistive Device: 4 wheeled walker (4WW) Time to Achieve: 5 - 7 days Goal Status: met Gait Training Goal, [place] Level: modified independence Assistive Device: 4 wheeled walker (4WW) Distance: 150 Time to Achieve: 5 - 7 days Goal Status: met LTG GOALS FIM: Assessment: doing better with activity. She is a very I woman. Daughter is hopeful to lalitha e her home with her to [place] for a short stay. Physical Therapy Anticipated Discharge Needs are: Have the anticipated discharge needs changed? no Post discharge physical therapy recommendation: . Plan for next treatment: 1P,gt ambwithout ad,monitor HR Electronically signed by: Julianna Lowery PTA, 04/09/2016 15:11 lan of Care - Roxana Worley RN - 04/09/2016 2:36 AM PDTProblem: Patient Care Overview (Adult) Goal: Care Team Goals & Evaluation PROBLEM-RELATED GOALS: Wean Off O2 by 04/08/16 Breath sounds will be consistent with baseline function by 04/10/16. 3. Modified independent in room and haque by 04/11/16 STRATEGY TO ACHIEVE GOALS: Monitor O2 saturations at least once per shift. Administer Duoneb medications as needed for wheezing or SOB. - Active participation in all PT interventions - Out of bed for all meals RESTRAINT-RELATED GOALS: STRATEGIES TO ACHIEVE RESTRAINT GOALS: Outcome: Improving Goal Evaluation: SD- CHF, anemia, acute respiratory failure. Pt VSS. She remains off oxygen. Sats 90's. Lung sounds dim bases with times of crackles mid posterior ernst. Encouraged C&DB. Independent with turning in bed and standing to get from chair to bed. No falls. Family remains in room for support. No N/V/D no noticed bleeding. lan of Care - Julianna Gomez PTA - 04/08/2016 2:09 PM PDTProblem: Patient Care Overview (Adult) Goal: Care Team Goals & Evaluation PROBLEM-RELATED GOALS: Wean Off O2 by 04/08/16 Breath sounds will be consistent with baseline function by 04/10/16. 3. Modified independent in room and haque by 04/11/16 STRATEGY TO ACHIEVE GOALS: Monitor O2 saturations at least once per shift and wean off O2 as indicated Administer Duoneb medications as needed for wheezing or SOB. - Active participation in all PT interventions - Out of bed for all meals RESTRAINT-RELATED GOALS: STRATEGIES TO ACHIEVE RESTRAINT GOALS: Missed Visit Patient Information Patient Name: Alexsandra Hawkins Date of : 1930 Age: 85 y.o. The patient was unable to be seen for today's scheduled visit due to family member wished t o let her rest and she is receiving blood. Plan: check status tomorrow. Electronically signed by: Julianna Lowery PTA, 04/08/2016 14:07 lan of Care - Haresh Vallecillo RN - 04/08/2016 8:02 AM PDTProblem: Patient Care Overview (Adult) Goal: Care Team Goals & Evaluation PROBLEM-RELATED GOALS: Wean Off O2 by 04/08/16 Breath sounds will be consistent with baseline function by 04/10/16. 3. Modified independent in room and haque by 04/11/16 STRATEGY TO ACHIEVE GOALS: Monitor O2 saturations at least once per shift and wean off O2 as indicated Administer Duoneb medications as needed for wheezing or SOB. - Active participation in all PT interventions - Out of bed for all meals RESTRAINT-RELATED GOALS: STRATEGIES TO ACHIEVE RESTRAINT GOALS: Outcome: Improving Goal Evaluation: BNP 2368 on admit(638 this AM). Pt slept in chair with legs elevated(Doesn't like the bed) AOx4. Reporting bilat foot cramps, morphine given x1. VSS on RA. Abnormal stress test yester day showed EF of 29%. John still ruling out GI bleed due to anemia and low H/H(7.7/24.4 ye day, 8.1/26 this morning). Still need stool sample. Lots of family in room. SBA with FWW . Good U/O during night. 1600 ml out via ortega. lan of Care - Matt Kaye, RONNIE - 04/07/2016 9:07 PM PDTProblem: Patient Care Overview (Adult) Goal: Care Team Goals & Evaluation PROBLEM-RELATED GOALS: Wean Off O2 by 04/08/16 Breath sounds will be consistent with baseline function by 04/10/16. 3. Modified independent in room and haque by 04/11/16 STRATEGY TO ACHIEVE GOALS: Monitor O2 saturations at least once per shift and wean off O2 as indicated Administer Duoneb medications as needed for wheezing or SOB. - Active participation in all PT interventions - Out of bed for all meals RESTRAINT-RELATED GOALS: STRATEGIES TO ACHIEVE RESTRAINT GOALS: Goal Evaluation: pt on RA sats doing well, did not require PRN tx. lan of Care - Leana Chaidez RN - 04/07/2016 6:27 PM PDTProblem: Patient Care Overview (Adult) Goal: Care Team Goals & Evaluation PROBLEM-RELATED GOALS: Wean Off O2 by 04/08/16 Breath sounds will be consistent with baseline function by 04/10/16. 3. Modified independent in room and haque by 04/11/16 STRATEGY TO ACHIEVE GOALS: Monitor O2 saturations at least once per shift and wean off O2 as indicated Administer Duoneb medications as needed for wheezing or SOB. - Active participation in all PT interventions - Out of bed for all meals RESTRAINT-RELATED GOALS: STRATEGIES TO ACHIEVE RESTRAINT GOALS: Outcome: Improving Goal Evaluation: SD-Patient admitted for CHF from [facility] yesterday. BNP at time of admit with over 2 500. Lasix given this am IV with only 550 ml output. Up in chair for most of day. Does not like to be in bed. Medicated for pain x 1 with tylenol for pain in bilateral lower leg shira n. Had a full shower this evening and was able to stand and bathe independently. Has been on RA all day. Walked in the halls with PT. OT treatment today. Patient tolerated all suzan y well and on RA. Had stress test this am. Results were abnormal with EF of 29%. VSS afebr ile. lan of Care - Marlin Hernandez RRT - 04/07/2016 5:57 PM PDTProblem: Patient Care Overview (Adult) Goal: Care Team Goals & Evaluation PROBLEM-RELATED GOALS: Wean Off O2 by 04/08/16 Breath sounds will be consistent with baseline function by 04/10/16. 3. Modified independent in room and haque by 04/11/16 STRATEGY TO ACHIEVE GOALS: Monitor O2 saturations at least once per shift and wean off O2 as indicated Administer Duoneb medications as needed for wheezing or SOB. - Active participation in all PT interventions - Out of bed for all meals RESTRAINT-RELATED GOALS: STRATEGIES TO ACHIEVE RESTRAINT GOALS: Outcome: Unchanged Goal Evaluation: BS diminished. She has not needed any PRN treatments this shift. She is now on RA, SpO2: 95 % on room air. lan of Care - Hector Valdez, OT - 04/07/2016 2:01 PM PDT Problem: Patient Care Overview (Adult) Goal: Care Team Goals & Evaluation PROBLEM-RELATED GOALS: Wean Off O2 by 04/08/16 Breath sounds will be consistent with baseline function by 04/10/16. 3. Modified independent in room and haque by 04/11/16 STRATEGY TO ACHIEVE GOALS: Monitor O2 saturations at least once per shift and wean off O2 as indicated Administer Duoneb medications as needed for wheezing or SOB. - Active participation in all PT interventions - Out of bed for all meals RESTRAINT-RELATED GOALS: STRATEGIES TO ACHIEVE RESTRAINT GOALS: Occupational Therapy Acute Initial Evaluation Note Patient Information Patient Name: Alexsandra Hawkins Date of : 1930 Age: 85 y.o. History Encounter Diagnoses Code Name Primary? J96.01 Acute respiratory failure with hypoxia (HCC) Yes I50.9 Acute on chronic congestive heart failure, unspecified congestive heart failure t ype (HCC) R06.02 Shortness of breath Date of Onset: 04/06/16 No past medical history on file. No past surgical history on file. No Known Allergies Precautions/Limitations: oxygen therapy device and L/min Left Upper Extremity Weight-Bearing: full weight-bearing Right Upper Extremity Weight-Bearing: full weight-bearing Left Lower Extremity Weight-Bearing: full weight-bearing Right Lower Extremity Weight-Bearing: full weight-bearing Evaluation SUBJECTIVE: History of Presenting Problem: Alexsandra Hawkins is a 85 y.o. who presents to therapy for mobility limitations s/p CHF exacerbation. Pt has hx of CHF and had an exacer bation several years ago and was treated at [facility]. She has been stable since then. She cont inues to smoke daily, pt reports 1-2 a day. Patient is right handed. OT Diagnosis: weakness, deconditioning Previous Level of Function: Ambulation: 0-->independent Transferrin-->independent Toiletin-->independent Bathin-->independent Dressin-->independent Eatin-->independent Communication: 0-->understands/communicates without difficulty Swallowin-->swallows foods/liquids without difficulty Role/Relationships: Significant Relationships: child Living Environment/Accessibility: Lives With: alone Living Arrangements: (duplex) Home Accessibility: no concerns Number of Stairs to Enter Home: 0 Number of Stairs Within Home: 0 Financial Concerns: none Transportation Available: family or friend will provide Living [place] Patient s Goals: pt desires to d/c home with daughter support OT Visit Summary: Pt seen for eval. Pt transferred from recliner to 4WW, then walked to b athroom. Pt sat on toilet, returned to stand. Pt walked back to bedroom. Pt sat in chair again. Pt at mod I for activities and transfers. Pt reports she feels she is recovered to prior level of function, has no further weakness in activities. Pt further reports her miguel hter visited her in home very frequently and performed most/all IADLs that pt needed, but pt was still independent for ADLs. Pt has no concerns present at this time requiring skilled OT services. D/C OT. Occupational Therapy will follow Alexsandra Hawkins evaluation only until discharge from therapy or discharged from the hospital. Occupational Therapy Anticipated Discharge Needs: Ongoing occupational therapy required. DC disposition TBD. Post discharge occupational therapy recommendation: (TBD) Equipment Recommendations: none Identified Problems Needing Skilled Intervention: weakness, deconditioning, aerobic capac ity/endurance, gait, locomotion, and balance Planned Interventions: Patient Status/Goals Reflects last filed data of patient status; may be from multiple contributors. Transfers Sit-Stand, Level of [place]: modified independence Stand-Sit, Level of [place]: modified independence Phi-Ldlja-Eag, Assistive Device: 4 wheeled walker (4WW) Toilet, Level of [place]: modified independence Toilet, Assistive Device: 4 wheeled walker (4WW) Assessment: Occupational therapy orders received and acknowledged. Objective impairments i nclude minimal weakness, deconditioning. These impairments are causing minimal functional li mitations with patient s ability to perform ADLs and functional mobility. Complexities con tributing to the need for skilled therapy include progressive age. Patient and/or family has indicated understanding of treatment needs and actively participa yasmin in the creation of this plan for care. Today's Treatment Start Time: 1315 Stop time: 1340 Time Calculation: 25 minutes Missed Treatment Time: minutes Total Treatment Time: 25 minutes TimedTreatment Code Minutes: 0 minutes Objective: Education: Purpose of OT eval. Safety during activities Treatment Provided: eval Assessment: pt displays no issues or concerns that would require skilled OT services at thi s time. Pt presents as at prior level of function, according to pt. No further OT. D/C OT . Electronically signed by: Hector Harden OT, 04/07/2016 13:59 lan of Care - Ewelina Ly Chaplain - 04/07/2016 11:15 AM PDTProblem: Spiritual Distress, Risk/Actual (Adult,Obstetrics,Pediatric) Goal: Spiritual Well-being Patient will demonstrate the desired outcomes by discharge/transition of care. Spiritual Care Alexsandra Hawkins is a 85 y.o. female who is admitted for CHF (congestive heart failure ) ([facility]) [I50.9] COPD (chronic obstructive pulmonary disease) ([facility]) [J44.9]. Dental Scheduling Coordinator visit is in response to an electronic spiritual care consult request. Spiritual Evaluation: Patient requested emergency department technician visit and prayer. She shared that she has [employer] background, n ow identifies as non-taoist and sometimes attend the service. She is a member of the [employer]. 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 She prays three times each day and has a strong travis in God. Three of her seven children are still living. Patient shared numerous stories of her family and wa nted prayer for her health. Spiritual Interventions: Automotive Electrical Fitter listened actively, engaged in supportive conversation and affirmed her travis journ ey. Automotive Electrical Fitter prayed for her health. Spiritual Outcomes: Patient was grateful for the emergency department technician visit and invited additional emergency department technician visits. Spiritual Goals/Follow up: Automotive Electrical Fitter will visit patient as needed or requested. If any additional spiritual issues damian e, please contact the emergency department technician. lan of Care - Melinda Escobar, PT - 04/07/2016 10:30 AM PDTProblem: Patient Care Overview (Adult) Goal: Care Team Goals & Evaluation PROBLEM-RELATED GOALS: Wean Off O2 by 04/08/16 Breath sounds will be consistent with baseline function by 04/10/16. 3. Modified independent in room and haque by 04/11/16 STRATEGY TO ACHIEVE GOALS: Monitor O2 saturations at least once per shift and wean off O2 as indicated Administer Duoneb medications as needed for wheezing or SOB. - Active participation in all PT interventions - Out of bed for all meals RESTRAINT-RELATED GOALS: STRATEGIES TO ACHIEVE RESTRAINT GOALS: Outcome: Improving Physical Therapy Daily Treatment Note Patient Information Patient Name: Alexsandra Hawkins Date of : 1930 Age: 85 y.o. Precautions/Limitations: oxygen therapy device and L/min Left Upper Extremity Weight-Bearing: full weight-bearing Right Upper Extremity Weight-Bearing: full weight-bearing Left Lower Extremity Weight-Bearing: full weight-bearing Right Lower Extremity Weight-Bearing: full weight-bearing History of Presenting Problem: mobility limitations s/p CHF exacerbation. Pt has hx of CHF and had an exacerbation several years ago and was treated at [facility]. She has been stable sin ce then. She continues to smoke daily, pt reports 1-2 a day. PT Diagnosis: Impaired mobility Start Time: 1000 Stop time: 1030 Time Calculation: 30 minutes Missed Treatment Time: minutes Total Treatment Time: 30 minutes TimedTreatment Code Minutes: 30 minutes Subjective: Pt reported feeling tired from lack of sleep last night but agreed to PT Objective: Treatment Provided: Pt received seated in recliner. Pt participated in transfers and gait ( see below for details). Resting vitals: 103/41, hr 79, Pso2 95%; Ending vitals: 115/38, hr 7 4, Pso2 98%. Pt returned to recliner and left w/ all needs w/in reach. And chair alarm activ iated Education: Safety w/ mobility, mgmt of components of 4WW Patient Status/Goals: Reflects last filed data of patient status; may be from multiple contributors. Gait Level of [place] : supervision required Assistive Device: 4 wheeled walker (4WW) Distance (feet): 100 Impairments: impaired balance Transfers Sit-Stand, Level of [place]: supervision required, verbal cues required Stand-Sit, Level of [place]: supervision required, verbal cues required [id number], Assistive Device: 4 wheeled walker (4WW) Safety Issues: balance decreased during turns Impairments: impaired balance (Impaired activity tolerance) Bed Mobility Assistive Device: bed rails Supine to Sit, Level of [place]: minimum assist (75% patient effort) Sit to Supine, Level of [place]: minimum assist (75% patient effort) Impairments: impaired balance (decreased functional activity tolerance) ROM ROM Testing Results: no range of motion deficits identified Strength Strength Testing Results: no strength deficits were identified STG GOALS Bed Mobility Goal, Activity Type: all bed mobility activities [place] Level: independent Assistive Device: none Time to Achieve: 5 - 7 days Goal Status: not addressed Transfer Training Goal, Activity Type: sit to stand/stand to sit [place] Level: modified independence Assistive Device: 4 wheeled walker (4WW) Time to Achieve: 5 - 7 days Goal Status: progressing toward goal Gait Training Goal, [place] Level: modified independence Assistive Device: 4 wheeled walker (4WW) Distance: 150 Time to Achieve: 5 - 7 days Goal Status: progressing toward goal Assessment: Pt demonstrated progress toward functional goals. She was able to perform trans fers to the 4WW w/ only min cuing for safety w/ brakes and utilized it successfully to allow for safe gait w/o need for physical assist. She continues to be limited w/ gait distance an d feels sluggish although she appears to be progressing well toward her PLOF. Pt will benefi t from continued PT interventions to promote increased independence w/ functional activities necessary for safe home discharge. Physical Therapy Anticipated Discharge Needs are: Pt continues to require PT services, disposition TBD. Plan for next treatment: 5x/wk, LKC, 1P, 4WW, progressive functional safety and independenc e, activity tolerance Electronically signed by: Melinda Escobar PT, 04/07/2016 17:23 lan of Care - Lacy Harmon RN - 04/07/2016 5:14 AM PDTProblem: Patient Care Overview (Adult) Goal: Care Team Goals & Evaluation PROBLEM-RELATED GOALS: Wean Off O2 by 04/08/16 Breath sounds will be consistent with baseline function by 04/10/16. 3. Modified independent in room and haque by 04/11/16 STRATEGY TO ACHIEVE GOALS: Monitor O2 saturations at least once per shift and wean off O2 as indicated Administer Duoneb medications as needed for wheezing or SOB. - Active participation in all PT interventions - Out of bed for all meals RESTRAINT-RELATED GOALS: STRATEGIES TO ACHIEVE RESTRAINT GOALS: Outcome: Improving Goal Evaluation: Alert and oriented. On -2 02 with sats high 90's. NSR- Sinus tach. C/O severe pain/cramping to right ankle and foot, relieved with morphine. Denies chest pain, tro ponin 0.04-0.06. Lung sounds diminished with crackles to bases. Pt states her "breathing fee ls easier." Has been NPO since midnight for heart cath today. lan of Care - Melinda Nguyễn, PT - 04/06/2016 2:45 PM PDT Problem: Patient Care Overview (Adult) Goal: Care Team Goals & Evaluation PROBLEM-RELATED GOALS: Wean Off O2 by 04/08/16 Breath sounds will be consistent with baseline function by 04/10/16. 3. Modified independent in room and haque by 04/11/16 STRATEGY TO ACHIEVE GOALS: Monitor O2 saturations at least once per shift and wean off O2 as indicated Administer Duoneb medications as needed for wheezing or SOB. - Active participation in all PT interventions - Out of bed for all meals RESTRAINT-RELATED GOALS: STRATEGIES TO ACHIEVE RESTRAINT GOALS: Physical Therapy Acute Initial Evaluation Note Patient Information Patient Name: Alexsandra Hawkins Date of : 1930 Age: 85 y.o. History Encounter Diagnoses Code Name Primary? J96.01 Acute respiratory failure with hypoxia (HCC) Yes I50.9 Acute on chronic congestive heart failure, unspecified congestive heart failure t ype (HCC) R06.02 Shortness of breath Date of Onset: 04/06/16 No past medical history on file. No past surgical history on file. No Known Allergies Precautions/Limitations: oxygen therapy device and L/min Left Lower Extremity Weight-Bearing: full weight-bearing Right Lower Extremity Weight-Bearing: full weight-bearing EVALUATION: SUBJECTIVE: History of Presenting Problem: Alexsandra Hawkins is a 85 y.o. who presents to therapy for mobility limitations s/p CHF exacerbation. pt has hx of CHF and had an exacer bation several years ago and was treated at [facility]. She has been stable since then. She cont inues to smoke daily, pt reports 1-2 a day. PT Diagnosis: Impaired mobility Impairments Found: aerobic capacity/endurance, gait, locomotion, and balance Previous Level of Function: Ambulation: 0-->independent Transferrin-->independent Toiletin-->independent Bathin-->independent Dressin-->independent Eatin-->independent Communication: 0-->understands/communicates without difficulty Swallowin-->swallows foods/liquids without difficulty Role/Relationships: Significant Relationships: child Living Environment/Accessibility: Lives With: alone Living Arrangements: (duplex) Home Accessibility: no concerns Number of Stairs to Enter Home: 0 Number of Stairs Within Home: 0 Financial Concerns: none Transportation Available: family or friend will provide Living [place] Patient s Goals: Want to go home OBJECTIVE : Patient Status/Goals: Reflects last filed data of patient status; may be from multiple contributors. Gait Level of [place] : contact guard assist Assistive Device: 2 wheeled walker (FWW) Distance (feet): 30 Impairments: impaired balance (impaired activity tolerance) Transfers Sit-Stand, Level of [place]: contact guard assist Stand-Sit, Level of [place]: contact guard assist [id number], Assistive Device: 2 wheeled walker (FWW) Safety Issues: balance decreased during turns Impairments: impaired balance (Impaired activity tolerance) Bed Mobility Assistive Device: bed rails Supine to Sit, Level of [place]: minimum assist (75% patient effort) Sit to Supine, Level of [place]: minimum assist (75% patient effort) Impairments: impaired balance (decreased functional activity tolerance) ROM ROM Testing Results: no range of motion deficits identified Strength Strength Testing Results: no strength deficits were identified STG GOALS Bed Mobility Goal, Activity Type: all bed mobility activities [place] Level: independent Assistive Device: none Time to Achieve: 5 - 7 days Goal Status: new, progressing toward goal Transfer Training Goal, Activity Type: sit to stand/stand to sit [place] Level: modified independence Assistive Device: 4 wheeled walker (4WW) Time to Achieve: 5 - 7 days Goal Status: new, progressing toward goal Gait Training Goal, [place] Level: modified independence Assistive Device: 4 wheeled walker (4WW) Distance: 150 Time to Achieve: 5 - 7 days Goal Status: new, progressing toward goal Assessment: Physical therapy orders received and acknowledged. Objective impairments inclu de balance and activity tolerance. These impairments are causing functional limitations with patient s inability to mobilize at a level necessary for safe home discharge. Complexitie s contributing to the need for skilled therapy include poor pulmonary conditioning. Rehabilitation potential: Patient demonstrates good potential to achieve established goals to address the documented impairments by participating in skilled physical therapy services . PLAN: balance training, bed mobility training, gait training, stair training, transfer training Physical Therapy will follow Alexsandra Hawkins 5 times/wk until discharge from therapy or discharged from the hospital. Anticipated days that therapy will be provided: 04/11/16 Physical Therapy Anticipated Discharge Needs: Ongoing PT services required. DC disposition TBD. Post discharge physical therapy recommendation: TBD Equipment Recommendations: (Pt has personal 4WW) Patient and/or family has indicated understanding of treatment needs and actively participa yasmin in the creation of this plan for care. Today's Treatment Start Time: 1400 Stop time: 1445 Time Calculation: 45 minutes Missed Treatment Time: minutes Total Treatment Time: 45 minutes TimedTreatment Code Minutes: 30 minutes Objective: Treatment Provided: PT eval completed. Pt also participated in bed mob, transfers and gait (see above for details). Pt left seated in recliner w/ all needs w/in reach. Education: Role of PT, safety w/ mobility Assessment: Pt demonstrated progress toward functional goals. She was able to perform bed m ob w/ only very little assistance, most d/t her short stature, transfers and gait w/ no need for physical assist,only light CGA. She was able to utilize the FWW effectively to provide for safe mobility w/o observable LOB. Resting vitals: 142/69, hr 80, Pso2 93%. Ending vitals : 140/72, hr 87, Pso2 92%. Pt will benefit from continued PT interventions to promote increa sed independence w/ functional activities necessary for safe home discharge. Plan for next treatment: 5x/wk, LKC, 2P, FWW vs 4WW, progressive functional safety and ind ependence Electronically signed by: Melinda Escobar, PT, 04/06/2016 17:52 lan of [facility] Geovanna Funk, DENTAL ASSISTING INSTRUCTOR - 04/06/2016 2:03 PM PDTProblem: Patient Care Overview (Adult) Goal: Care Team Goals & Evaluation PROBLEM-RELATED GOALS: Wean Off O2 by 04/08/16 Breath sounds will be consistent with baseline function by 04/10/16. STRATEGY TO ACHIEVE GOALS: Monitor O2 saturations at least once per shift and wean off O2 as indicated Administer Duoneb medications as needed for wheezing or SOB. RESTRAINT-RELATED GOALS: STRATEGIES TO ACHIEVE RESTRAINT GOALS: Outcome: Improving Goal Evaluation: Patient arrived from [facility] with CHF. She does smoke "but not a lot". She does not take any respiratory medications at home. She did not feel any improvement in her breathing with the one she received. Oxygenation well on 2 lpm NC. She understands if she wants a breathing treatment that she should call and that we would periodically assess her. lan of [facility] Yasemin Marquez Rafat - 04/06/2016 11:50 AM PDTDC Planning: Spoke with Alexsandra at her bedside regarding her discharge plan. [place]. She lives in a one level home. She no longer drives. 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 Alexsandra speaks 12 different [place] merican languages, [place]raltarian and some Nigerian. She has a daughter Amado that lives in town in [place] who visits her each day. Amado does all her shopping, transports her to appointments. Alexsandra has one grab bar in the bathroom and she also owns a shower chair. She has a 4 whee l walker [place] and only [place] it when she is there. She does not have a DME preference. Her PCP is Dr. Whitney at [facility] and she uses [facility] pharmacy. Alexsandra refused HH and a SNF. She states her daughter gives her all the help she needs and she is also going on vacation to [place] to see family on April 13. 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 | + +--------+ + + + | URINALYSIS WITH | Routin | 04/09/2016 | | Results for this | | MICROSCOPIC WITH | e | 6:15 PM | | procedure are in the | | CULTURE IF INDICATED | | PDT | | results section. | + +--------+ + + + | CBC NO DIFFERENTIAL | Routin | 04/09/2016 | | Results for this | | | e | 4:51 AM | | procedure are in the | | | | PDT | | results section. | + +--------+ + + + | B TYPE NATRIURETIC | Routin | 04/09/2016 | | Results for this | | PEPTIDE | e | 4:51 AM | | procedure are in the | | | | PDT | | results section. | + +--------+ + + + | BASIC METABOLIC | Routin | 04/09/2016 | | Results for this | | PANEL | e | 4:51 AM | | procedure are in the | | | | PDT | | results section. | + +--------+ + + + | PRODUCT: RBC | Routin | 04/09/2016 | | Results for this | | | e | 1:15 AM | | procedure are in the | | | | PDT | | results section. | + +--------+ + + + | ABO RH | Routin | 04/08/2016 | | Results for this | | | e | 9:24 AM | | procedure are in the | | | | PDT | | results section. | + +--------+ + + + | ANTIBODY SCREEN | Routin | 04/08/2016 | | Results for this | | | e | 9:24 AM | | procedure are in the | | | | PDT | | results section. | + +--------+ + + + | TYPE AND SCREEN | Routin | 04/08/2016 | | Results for this | | | e | 9:24 AM | | procedure are in the | | | | PDT | | results section. | + +--------+ + + + | CBC WITH | Routin | 04/08/2016 | | Results for this | | DIFFERENTIAL | e | 3:34 AM | | procedure are in the | | | | PDT | | results section. | + +--------+ + + + | EXTRA BLOOD BANK | Routin | 04/08/2016 | | Results for this | | TUBE | e | 3:34 AM | | procedure are in the | | | | PDT | | results section. | + +--------+ + + + | B TYPE NATRIURETIC | Routin | 04/08/2016 | | Results for this | | PEPTIDE | e | 3:34 AM | | procedure are in the | | | | PDT | | results section. | + +--------+ + + + | BASIC METABOLIC | Routin | 04/08/2016 | | Results for this | | PANEL | e | 3:34 AM | | procedure are in the | | | | PDT | | results section. | + +--------+ + + + | VITAMIN B-12 | Routin | 04/07/2016 | | Results for this | | | e | 2:34 PM | | procedure are in the | | | | PDT | | results section. | + +--------+ + + + | IRON AND TRANSFERRIN | Routin | 04/07/2016 | | Results for this | | | e | 2:34 PM | | procedure are in the | | | | PDT | | results section. | + +--------+ + + + | FOLATE | Routin | 04/07/2016 | | Results for this | | | e | 2:34 PM | | procedure are in the | | | | PDT | | results section. | + +--------+ + + + | FERRITIN | Routin | 04/07/2016 | | Results for this | | | e | 2:34 PM | | procedure are in the | | | | PDT | | results section. | + +--------+ + + + | XR CHEST PA AND | Routin | 04/07/2016 | | Results for this | | LATERAL | e | 2:14 PM | | procedure are in the | | | | PDT | | results section. | + +--------+ + + + | NM NUCLEAR STRESS | Routin | 04/07/2016 | | Results for this | | TEST (PHARMACOLOGIC | e | 12:54 PM | | procedure are in the | | - VASODILATOR) | | PDT | | results section. | + +--------+ + + + | CBC NO DIFFERENTIAL | Routin | 04/07/2016 | | Results for this | | | e | 4:02 AM | | procedure are in the | | | | PDT | | results section. | + +--------+ + + + | BASIC METABOLIC | Routin | 04/07/2016 | | Results for this | | PANEL | e | 4:02 AM | | procedure are in the | | | | PDT | | results section. | + +--------+ + + + | TROPONIN I | Routin | 04/06/2016 | | Results for this | | | e | 10:24 PM | | procedure are in the | | | | PDT | | results section. | + +--------+ + + + | TROPONIN I | Routin | 04/06/2016 | | Results for this | | | e | 4:43 PM | | procedure are in the | | | | PDT | | results section. | + +--------+ + + + | ECG 12 LEAD | Routin | 04/06/2016 | | Results for this | | | e | 1:46 PM | | procedure are in the | | | | PDT | | results section. | + +--------+ + + + | ECHO COMPLETE | Routin | 04/06/2016 | | Results for this | | | e | 11:52 AM | | procedure are in the | | | | PDT | | results section. | + +--------+ + + + | XR CHEST AP PORTABLE | Routin | 04/06/2016 | | Results for this | | | e | 11:50 AM | | procedure are in the | | | | PDT | | results section. | + +--------+ + + + | CBC WITH | Routin | 04/06/2016 | | Results for this | | DIFFERENTIAL | e | 10:07 AM | | procedure are in the | | | | PDT | | results section. | + +--------+ + + + | TROPONIN I | Routin | 04/06/2016 | | Results for this | | | e | 10:06 AM | | procedure are in the | | | | PDT | | results section. | + +--------+ + + + | B TYPE NATRIURETIC | Routin | 04/06/2016 | | Results for this | | PEPTIDE | e | 10:06 AM | | procedure are in the | | | | PDT | | results section. | + +--------+ + + + | BASIC METABOLIC | Routin | 04/06/2016 | | Results for this | | PANEL | e | 10:06 AM | | procedure are in the | | | | PDT | | results section. | + +--------+ + + + | CULTURE, MRSA | Routin | 04/06/2016 | | Results for this | | | e | 7:04 AM | | procedure are in the | | | | PDT | | results section. | + +--------+ + + + | IMAGING REPORT - | | 04/06/2016 | | Results for this | | EXTERNAL SCAN | | 12:00 AM | | procedure are in the | | | | PDT | | results section. | + +--------+ + + + | LABS - EXTERNAL SCAN | | 04/06/2016 | | Results for this | | | | 12:00 AM | | procedure are in the | | | | PDT | | results section. | + +--------+ + + + | ECG - EXTERNAL SCAN | | 04/06/2016 | | Results for this | | | | 12:00 AM | | procedure are in the | | | | PDT | | results section. | + +--------+ + + + documented in this encounter Results Occult Blood, Stool, Specimen 3 (04/09/2016 6:44 PM PDT) + + + + + + | Component | Value | Ref Range | Performed | Pathologist | | | | | At | Signature | + + + + + + | Occult | Negative | | [facility] | | | Blood in | | | [facility] | | | 3rd | | | MEDICAL | | | Specimen, | | | CENTER - | | | Stool | | | LABORATORY | | + + + + + + + + | Specimen | + + | Stool - Stool | | specimen (specimen) | + + + + + + + | Performing | Address | City/State/Zipcode | Phone Number | | Organization | | | | + + + + + | [facility] | [address] | [place] | [phone] | | [facility] | | [address] | | | - LABORATORY | | | | + + + + + Urinalysis with Microscopic with Culture if Indicated (04/09/2016 6:15 PM PDT) + + + + + + | Component | Value | Ref Range | Performed | Pathologist | | | | | At | Signature | + + + + + + | Color, | Colorless (A) | Light Yellow, | [facility] | | | Urine | | Yellow, Straw | [facility] | | | | | | MEDICAL | | | | | | CENTER - | | | | | | LABORATORY | | + + + + + + | Clarity, | Clear | Clear | [facility] | | | Urine | | | [facility] | | | | | | MEDICAL | | | | | | CENTER - | | | | | | LABORATORY | | + + + + + + | pH, Urine | 6.0 | 5.0 - 8.0 | [facility] | | | | | | [facility] | | | | | | MEDICAL | | | | | | CENTER - | | | | | | LABORATORY | | + + + + + + | Specific | 1.004 | 1.001 - 1.030 | [facility] | | | [place], | | | [facility] | | | Urine | | | MEDICAL | | | | | | CENTER - | | | | | | LABORATORY | | + + + + + + | Protein, | Negative | Negative | [facility] | | | Urine | | | [facility] | | | | | | MEDICAL | | | | | | CENTER - | | | | | | LABORATORY | | + + + + + + | Blood, | Small (A) | Negative | [facility] | | | Urine | | | [facility] | | | | | | MEDICAL | | | | | | CENTER - | | | | | | LABORATORY | | + + + + + + | Glucose, | Negative | Negative | [facility] | | | Urine | | | [facility] | | | | | | MEDICAL | | | | | | CENTER - | | | | | | LABORATORY | | + + + + + + | Ketones, | Negative | Negative | [facility] | | | Urine | | | [facility] | | | | | | MEDICAL | | | | | | CENTER - | | | | | | LABORATORY | | + + + + + + | Bilirubin, | Negative | Negative | [facility] | | | Urine | | | [facility] | | | | | | MEDICAL | | | | | | CENTER - | | | | | | LABORATORY | | + + + + + + | Nitrite, | Negative | Negative | [facility] | | | Urine | | | [facility] | | | | | | MEDICAL | | | | | | CENTER - | | | | | | LABORATORY | | + + + + + + | Leukocyte | Small (A) | Negative | [facility] | | | Esterase, | | | [facility] | | | Urine | | | MEDICAL | | | | | | CENTER - | | | | | | LABORATORY | | + + + + + + | Urobilinoge | Negative | 0.2 mg/dL, 1.0 | [facility] | | | n, Urine | | mg/dL, Negative | [facility] | | | | | | MEDICAL | | | | | | CENTER - | | | | | | LABORATORY | | + + + + + + | White Blood | 2-5 (A) | 0 - 2 /HPF | [facility] | | | Cells, | | | [facility] | | | Urine | | | MEDICAL | | | | | | CENTER - | | | | | | LABORATORY | | + + + + + + | Red Blood | 0-2 | 0 - 2 /HPF | [facility] | | | Cells, | | | [facility] | | | Urine | | | MEDICAL | | | | | | CENTER - | | | | | | LABORATORY | | + + + + + + | Squamous | 2-5 (A) | 0 - 2 /LPF | [facility] | | | Epithelial | | | [facility] | | | Cells, | | | MEDICAL | | | Urine | | | CENTER - | | | | | | LABORATORY | | + + + + + + | Bacteria, | 1+ (A) | Negative /HPF | [facility] | | | Urine | | | [facility] | | | | | | MEDICAL | | | | | | CENTER - | | | | | | LABORATORY | | + + + + + + | Mucus, | Present (A) | Negative /LPF | [facility] | | | Urine | | | [facility] | | | | | | MEDICAL | | | | | | CENTER - | | | | | | LABORATORY | | + + + + + + | Urine | Urine Culture Not | | [facility] | | | Comment | Indicated | | [facility] | | | | | | [facility] | | | | | | CENTER - | | | | | | LABORATORY | | + + + + + + + + | Specimen | + + | Urine | + + + + + + + | Performing | Address | City/State/Zipcode | Phone Number | | Organization | | | | + + + + + | [facility] | [address] | [place] | [phone] | | [facility] | | [address] | | | - LABORATORY | | | | + + + + + B Type Natriuretic Peptide (04/09/2016 4:51 AM PDT) + +---------+ + + + | Component | Value | Ref Range | Performed | Pathologist | | | | | At | Signature | + +---------+ + + + | BNP | 921 (H) | <100 pg/mL | [facility] | | | | | | [facility] | | | | | | MEDICAL | | | | | | CENTER - | | | | | | LABORATORY | | + +---------+ + + + + + | Specimen | + + | Blood | + + + + + + + | Performing | Address | City/State/Zipcode | Phone Number | | Organization | | | | + + + + + | [facility] | [address] | [place] | [phone] | | [facility] | | [address] | | | - LABORATORY | | | | + + + + + Basic Metabolic Panel (04/09/2016 4:51 AM PDT) + + + + + + | Component | Value | Ref Range | Performed | Pathologist | | | | | At | Signature | + + + + + + | Na | 135 (L) | 136 - 149 | [facility] | | | | | mmol/L | [facility] | | | | | | [facility] | | | | | | [facility] - | | | | | | LABORATORY | | + + + + + + | K | 4.2 | 3.5 - 5.1 | [facility] | | | | | mmol/L | [facility] | | | | | | [facility] | | | | | | C[facility] - | | | | | | LABORATORY | | + + + + + + | Cl | 100 | 98 - 109 mmol/L | [facility] | | | | | | [facility] | | | | | | [facility] | | | | | | C[facility] - | | | | | | LABORATORY | | + + + + + + | CO2 | 25 | 24 - 31 mmol/L | [facility] | | | | | | [facility] | | | | | | [facility] | | | | | | C[facility] - | | | | | | LABORATORY | | + + + + + + | Anion Gap | 10 | 3 - 16 mmol/L | [facility] | | | | | | [facility] | | | | | | [facility] | | | | | | CENTER - | | | | | | LABORATORY | | + + + + + + | Glucose | 98 | 70 - 109 mg/dL | [facility] | | | | | | [facility] | | | | | | [facility] | | | | | | CENTER - | | | | | | LABORATORY | | + + + + + + | BUN | 51 (H) | 7 - 18 mg/dL | [facility] | | | | | | [facility] | | | | | | [facility] | | | | | | CENTER - | | | | | | LABORATORY | | + + + + + + | Creatinine | 2.23 (H) | 0.60 - 1.30 | [facility] | | | | | mg/dL | [facility] | | | | | | [facility] | | | | | | CENTER - | | | | | | LABORATORY | | + + + + + + | eGFR if not | 21 (L)Comment: | >=60 | [facility] | | | | GLOMERULAR FILTRATION | mL/min/1.73m2 | [facility] | | | GU[facility]IAN | RATE,ESTIMATED | | MEDICAL | | | | mL/min/1.59t3Xxuw than | | CENTER - | | | | 60 Chronic kidney | | LABORATORY | | | | disease,if found over a | | | | | | 3-month period.Less than | | | | | | 15 Kidney failureFor | | | | | | | | | | | | Americans,multiply the | | | | | | calculated GFR by 1.21. | | | | | | | | | | + + + + + + | Calcium | 8.0 (L) | 8.3 - 10.5 | [facility] | | | | | mg/dL | [facility] | | | | | | [facility] | | | | | | CENTER - | | | | | | LABORATORY | | + + + + + + | BUN/Creatin | 22.9 | | [facility] | | | ine Ratio | | | [facility] | | | | | | [facility] | | | | | | CENTER - | | | | | | LABORATORY | | + + + + + + + + | Specimen | + + | Blood | + + + + + + + | Performing | Address | City/State/Zipcode | Phone Number | | Organization | | | | + + + + + | [facility] | [address] | [place] | [phone] | | [facility] | | [address] | | | - LABORATORY | | | | + + + + + CBC no Differential (04/09/2016 4:51 AM PDT) + + + + + + | Component | Value | Ref Range | Performed | Pathologist | | | | | At | Signature | + + + + + + | White Blood | 9.0 | 4.0 - 11.0 K/uL | [facility] | | | Cells | | | [facility] | | | | | | [facility] | | | | | | CENTER - | | | | | | LABORATORY | | + + + + + + | Red Blood | 3.97 | 3.70 - 5.20 | [facility] | | | Cells | | M/uL | [facility] | | | | | | MEDICAL | | | | | | CENTER - | | | | | | LABORATORY | | + + + + + + | Hemoglobin | 9.4 (L) | 11.5 - 16.0 | [facility] | | | | | g/dL | [facility] | | | | | | MEDICAL | | | | | | CENTER - | | | | | | LABORATORY | | + + + + + + | Hematocrit | 29.0 (L) | 34.0 - 47.0 % | [facility] | | | | | | [facility] | | | | | | [facility] | | | | | | CENTER - | | | | | | LABORATORY | | + + + + + + | MCV | 73.0 (L) | 83.0 - 101.0 fL | [facility] | | | | | | [facility] | | | | | | [facility] | | | | | | CENTER - | | | | | | LABORATORY | | + + + + + + | MCH | 23.6 (L) | 28.0 - 35.0 pg | [facility] | | | | | | [facility] | | | | | | [facility] | | | | | | CENTER - | | | | | | LABORATORY | | + + + + + + | MCHC | 32.3 | 32.0 - 36.0 | [facility] | | | | | g/dL | [facility] | | | | | | [facility]ICAL | | | | | | CENTER - | | | | | | LABORATORY | | + + + + + + | RDW-CV | 16.7 (H) | <15.0 % | [facility] | | | | | | [facility] | | | | | | [facility] | | | | | | CENTER - | | | | | | LABORATORY | | + + + + + + | Platelet | 247 | 140 - 440 K/uL | [facility] | | | Count | | | [facility] | | | | | | [facility] | | | | | | CENTER - | | | | | | LABORATORY | | + + + + + + | MPV | 8.4 | fL | [facility] | | | | | | [facility] | | | | | | [facility] | | | | | | CENTER - | | | | | | LABORATORY | | + + + + + + + + | Specimen | + + | Blood | + + + + + + + | Performing | Address | City/State/Zipcode | Phone Number | | Organization | | | | + + + + + | [facility] | [address] | [place] | [phone] | | [facility] | | [address] | | | - LABORATORY | | | | + + + + + PRODUCT: RBC (04/09/2016 1:15 AM PDT) + + + + + + | Component | Value | Ref Range | Performed | Pathologist | | | | | At | Signature | + + + + + + | Product | RBC Leukocytes Reduced | | [facility] | | | Code | | | [facility] | | | | | | MEDICAL | | | | | | CENTER - | | | | | | BLOOD BANK | | + + + + + + | UNIT # | [id number] | | [facility] | | | | | | [facility] | | | [facility] | [facility] | | | | | | CENTER - | | | | | | BLOOD BANK | | + + + + + + | UNIT ABO | O | | [facility] | | | | | [facility] | | | | | [facility] | | | | | | C[facility] - | | | | | | BLOOD BANK | | + + + + + + | UNIT RH | POS | | [facility] | | | | | | [facility] | | | | | | [facility]ICAL | | | | | | CENTER - | | | | | | BLOOD BANK | | + + + + + + | CROSSMATCH | Compatible | | [facility] | | | INTERP | | | [facility] | | | | | | MEDICAL | | | | | | CENTER - | | | | | | BLOOD BANK | | + + + + + + | Unit Status | Transfused | | [facility] | | | | | | [facility] | | | | | | [facility] | | | | | | CENTER - | | | | | | BLOOD BANK | | + + + + + + + + | Specimen | + + | | + + + + + + + | Performing | Address | City/State/Zipcode | Phone Number | | Organization | | | | + + + + + | [facility] | [address] | [place] | | | [facility] | | [address] | | | - BLOOD BANK | | | | + + + + + Antibody Screen (04/08/2016 9:24 AM PDT) + + + + + + | Component | Value | Ref Range | Performed | Pathologist | | | | | At | Signature | + + + + + + | Antibody | Negative | | [facility] | | | Screen | | | [facility] | | | | | | MEDICAL | | | | | | CENTER - | | | | | | BLOOD BANK | | + + + + + + + + | Specimen | + + | Blood specimen | | (specimen) | + + + + + + + | Performing | Address | City/State/Zipcode | Phone Number | | Organization | | | | + + + + + | [facility] | [address] | [place] | | | [facility] | | [address] | | | - BLOOD BANK | | | | + + + + + ABO Rh (04/08/2016 9:24 AM PDT) + + + + + + | Component | Value | Ref Range | Performed | Pathologist | | | | | At | Signature | + + + + + + | ABO | O | | [facility] | | | | | | [facility] | | | | | | [facility] | | | | | | CENTER - | | | | | | BLOOD BANK | | + + + + + + | Rh Type | Positive | | [facility] | | | | | | [facility] | | | | | | MEDICAL | | | | | | CENTER - | | | | | | BLOOD BANK | | + + + + + + + + | Specimen | + + | Blood specimen | | (specimen) | + + + + + + + | Performing | Address | City/State/Zipcode | Phone Number | | Organization | | | | + + + + + | [facility] | [address] | [place], [place] | | | [facility] | | [address] | | | - BLOOD BANK | | | | + + + + + Type and Screen (04/08/2016 9:24 AM PDT) + + + + + + | Component | Value | Ref Range | Performed | Pathologist | | | | | At | Signature | + + + + + + | ABO | O | | [facility] | | | | | | [facility] | | | | | | MEDICAL | | | | | | CENTER - | | | | | | BLOOD BANK | | + + + + + + | Rh Type | Positive | | [facility] | | | | | | [facility] | | | | | | MEDICAL | | | | | | CENTER - | | | | | | BLOOD BANK | | + + + + + + | Antibody | Negative | | [facility] | | | Screen | | | [facility] | | | | | | MEDICAL | | | | | | CENTER - | | | | | | BLOOD BANK | | + + + + + + + + | Specimen | + + | Blood specimen | | (specimen) | + + + + + + + | Performing | Address | City/State/Zipcode | Phone Number | | Organization | | | | + + + + + | [facility] | [address] | [place] | | | [facility] | | [address] | | | - BLOOD BANK | | | | + + + + + Extra Blood Bank Tube (04/08/2016 3:34 AM PDT) + + + + + + | Component | Value | Ref Range | Performed | Pathologist | | | | | At | Signature | + + + + + + | Hold BB | Hold Specimen | | [facility] | | | | | | [facility] | | | | | | MEDICAL | | | | | | CENTER - | | | | | | BLOOD BANK | | + + + + + + + + | Specimen | + + | Blood specimen | | (specimen) | + + + + + + + | Performing | Address | City/State/Zipcode | Phone Number | | Organization | | | | + + + + + | [facility] | [address] | [place] | | | [facility] | | [address] | | | - BLOOD BANK | | | | + + + + + B Type Natriuretic Peptide (04/08/2016 3:34 AM PDT) + +---------+ + + + | Component | Value | Ref Range | Performed | Pathologist | | | | | At | Signature | + +---------+ + + + | BNP | 638 (H) | <100 pg/mL | [facility] | | | | | | [facility] | | | | | | MEDICAL | | | | | | CENTER - | | | | | | LABORATORY | | + +---------+ + + + + + | Specimen | + + | Blood | + + + + + + + | Performing | Address | City/State/Zipcode | Phone Number | | Organization | | | | + + + + + | [facility] | [address] | [place] | [phone] | | [facility] | | [address] | | | - LABORATORY | | | | + + + + + Basic Metabolic Panel (04/08/2016 3:34 AM PDT) + + + + + + | Component | Value | Ref Range | Performed | Pathologist | | | | | At | Signature | + + + + + + | Na | 134 (L) | 136 - 149 | [facility] | | | | | mmol/L | [facility] | | | | | | MEDICAL | | | | | | CENTER - | | | | | | LABORATORY | | + + + + + + | K | 4.5 | 3.5 - 5.1 | [facility] | | | | | mmol/L | [facility] | | | | | | MEDICAL | | | | | | CENTER - | | | | | | LABORATORY | | + + + + + + | Cl | 99 | 98 - 109 mmol/L | [facility] | | | | | | [facility] | | | | | | MEDICAL | | | | | | CENTER - | | | | | | LABORATORY | | + + + + + + | CO2 | 25 | 24 - 31 mmol/L | [facility] | | | | | | [facility] | | | | | | MEDICAL | | | | | | CENTER - | | | | | | LABORATORY | | + + + + + + | Anion Gap | 10 | 3 - 16 mmol/L | [facility] | | | | | | [facility] | | | | | | [facility]ICAL | | | | | | CENTER - | | | | | | LABORATORY | | + + + + + + | Glucose | 106 | 70 - 109 mg/dL | [facility] | | | | | | [facility] | | | | | | [facility] | | | | | | CENTER - | | | | | | LABORATORY | | + + + + + + | BUN | 55 (H) | 7 - 18 mg/dL | [facility] | | | | | | [facility] | | | | | | [facility]ICAL | | | | | | CENTER - | | | | | | LABORATORY | | + + + + + + | Creatinine | 2.50 (H) | 0.60 - 1.30 | [facility] | | | | | mg/dL | [facility] | | | | | | MEDICAL | | | | | | CENTER - | | | | | | LABORATORY | | + + + + + + | eGFR if not | 18 (L)Comment: | >=60 | [facility] | | | | GLOMERULAR FILTRATION | mL/min/1.73m2 | [facility] | | | GUAMANIAN | RATE,ESTIMATED | | MEDICAL | | | | mL/min/1.65d8Gmxu than | | CENTER - | | | | 60 Chronic kidney | | LABORATORY | | | | disease,if found over a | | | | | | 3-month period.Less than | | | | | | 15 Kidney failureFor | | | | | | | | | | | | Americans,multiply the | | | | | | calculated GFR by 1.21. | | | | | | | | | | + + + + + + | Calcium | 8.2 (L) | 8.3 - 10.5 | [facility] | | | | | mg/dL | [facility] | | | | | | MEDICAL | | | | | | CENTER - | | | | | | LABORATORY | | + + + + + + | BUN/Creatin | 22.0 | | [facility] | | | ine Ratio | | | [facility] | | | | | | [facility] | | | | | | CENTER - | | | | | | LABORATORY | | + + + + + + + + | Specimen | + + | Blood | + + + + + + + | Performing | Address | City/State/Zipcode | Phone Number | | Organization | | | | + + + + + | [facility] | [address] | [place] | [phone] | | [facility] | | [address] | | | - LABORATORY | | | | + + + + + CBC with Differential (04/08/2016 3:34 AM PDT) + + + + + + | Component | Value | Ref Range | Performed | Pathologist | | | | | At | Signature | + + + + + + | White Blood | 13.0 (H) | 4.0 - 11.0 K/uL | [facility] | | | Cells | | | [facility] | | | | | | MEDICAL | | | | | | CENTER - | | | | | | LABORATORY | | + + + + + + | Red Blood | 3.58 (L) | 3.70 - 5.20 | [facility] | | | Cells | | M/uL | [facility] | | | | | | MEDICAL | | | | | | CENTER - | | | | | | LABORATORY | | + + + + + + | Hemoglobin | 8.1 (L) | 11.5 - 16.0 | [facility] | | | | | g/dL | [facility] | | | | | | MEDICAL | | | | | | CENTER - | | | | | | LABORATORY | | + + + + + + | Hematocrit | 25.9 (L) | 34.0 - 47.0 % | [facility] | | | | | | [facility] | | | | | | MEDICAL | | | | | | CENTER - | | | | | | LABORATORY | | + + + + + + | MCV | 72.4 (L) | 83.0 - 101.0 fL | [facility] | | | | | | [facility] | | | | | | MEDICAL | | | | | | CENTER - | | | | | | LABORATORY | | + + + + + + | MCH | 22.8 (L) | 28.0 - 35.0 pg | [facility] | | | | | | [facility] | | | | | | MEDICAL | | | | | | CENTER - | | | | | | LABORATORY | | + + + + + + | MCHC | 31.4 (L) | 32.0 - 36.0 | [facility] | | | | | g/dL | [facility] | | | | | | MEDICAL | | | | | | CENTER - | | | | | | LABORATORY | | + + + + + + | RDW-CV | 16.1 (H) | <15.0 % | [facility] | | | | | | [facility] | | | | | | MEDICAL | | | | | | CENTER - | | | | | | LABORATORY | | + + + + + + | Platelet | 264 | 140 - 440 K/uL | [facility] | | | Count | | | [facility] | | | | | | MEDICAL | | | | | | CENTER - | | | | | | LABORATORY | | + + + + + + | MPV | 8.5 | fL | [facility] | | | | | | [facility] | | | | | | MEDICAL | | | | | | CENTER - | | | | | | LABORATORY | | + + + + + + | % | 81.9 | 45.0 - 82.0 % | [facility] | | | Neutrophils | | | [facility] | | | | | | MEDICAL | | | | | | CENTER - | | | | | | LABORATORY | | + + + + + + | % | 9.4 (L) | 20.0 - 45.0 % | [facility] | | | Lymphocytes | | | [facility] | | | | | | MEDICAL | | | | | | CENTER - | | | | | | LABORATORY | | + + + + + + | % Monocytes | 6.3 | 4.0 - 12.0 % | [facility] | | | | | | [facility] | | | | | | MEDICAL | | | | | | CENTER - | | | | | | LABORATORY | | + + + + + + | % | 2.1 | 0.0 - 5.0 % | [facility] | | | Eosinophils | | | [facility] | | | | | | MEDICAL | | | | | | CENTER - | | | | | | LABORATORY | | + + + + + + | % Basophils | 0.3 | 0.0 - 1.0 % | [facility] | | | | | | [facility] | | | | | | MEDICAL | | | | | | CENTER - | | | | | | LABORATORY | | + + + + + + | Absolute | 10.60 (H) | 1.80 - 8.50 | [facility] | | | Neutrophils | | K/uL | [facility] | | | | | | [facility]ICAL | | | | | | CENTER - | | | | | | LABORATORY | | + + + + + + | Absolute | 1.20 | 0.60 - 3.20 | [facility] | | | Lymphocytes | | K/uL | [facility] | | | | | | MEDICAL | | | | | | CENTER - | | | | | | LABORATORY | | + + + + + + | Absolute | 0.80 | 0.00 - 1.00 | [facility] | | | Monocytes | | K/uL | [facility] | | | | | | MEDICAL | | | | | | CENTER - | | | | | | LABORATORY | | + + + + + + | Absolute | 0.30 | 0.00 - 0.40 | [facility] | | | Eosinophils | | K/uL | [facility] | | | | | | MEDICAL | | | | | | CENTER - | | | | | | LABORATORY | | + + + + + + | Absolute | 0.00 | 0.00 - 0.10 | [facility] | | | Basophils | | K/uL | [facility] | | | | | | MEDICAL | | | | | | CENTER - | | | | | | LABORATORY | | + + + + + + + + | Specimen | + + | Blood | + + + + + + + | Performing | Address | City/State/Zipcode | Phone Number | | Organization | | | | + + + + + | [facility] | [address] | [place], [place] | [phone] | | [facility] | | [address] | | | - LABORATORY | | | | + + + + + Ferritin (04/07/2016 2:34 PM PDT) + +-------+ + + + | Component | Value | Ref Range | Performed | Pathologist | | | | | At | Signature | + +-------+ + + + | FERRITIN | 6 (L) | 11-<307 ng/mL | [facility] | | | | | | [facility] | | | | | | MEDICAL | | | | | | CENTER - | | | | | | LABORATORY | | + +-------+ + + + + + | Specimen | + + | Blood | + + + + + + + | Performing | Address | City/State/Zipcode | Phone Number | | Organization | | | | + + + + + | [facility] | [address] | [place] | [phone] | | [facility] | | [address] | | | - LABORATORY | | | | + + + + + Folate (04/07/2016 2:34 PM PDT) + +-------+ + + + | Component | Value | Ref Range | Performed | Pathologist | | | | | At | Signature | + +-------+ + + + | FOLATE | 12.7 | >5.8 ng/mL | [facility] | | | | | | [facility] | | | | | | [facility]ICAL | | | | | | CENTER - | | | | | | LABORATORY | | + +-------+ + + + + + | Specimen | + + | Blood | + + + + + + + | Performing | Address | City/State/Zipcode | Phone Number | | Organization | | | | + + + + + | [facility] | [address] | [place] | [phone] | | [facility] | | [address] | | | - LABORATORY | | | | + + + + + Iron and Transferrin (04/07/2016 2:34 PM PDT) + +---------+ + + + | Component | Value | Ref Range | Performed | Pathologist | | | | | At | Signature | + +---------+ + + + | Iron | 10 (L) | 40 - 150 ug/dL | [facility] | | | | | | [facility] | | | | | | [facility]ICAL | | | | | | CENTER - | | | | | | LABORATORY | | + +---------+ + + + | TRANSFERRIN | 364.0 | 240.0 - 480.0 | [facility] | | | | | mg/dL | [facility] | | | | | | MEDICAL | | | | | | CENTER - | | | | | | LABORATORY | | + +---------+ + + + | TIBC | 510 (H) | 235 - 425 ug/dL | [facility] | | | | | | [facility] | | | | | | MEDICAL | | | | | | CENTER - | | | | | | LABORATORY | | + +---------+ + + + | % | 2.0 (L) | 20.0 - 55.0 % | [facility] | | | SATURATION | | | [facility] | | | | | | MEDICAL | | | | | | CENTER - | | | | | | LABORATORY | | + +---------+ + + + + + | Specimen | + + | Blood | + + + + + + + | Performing | Address | City/State/Zipcode | Phone Number | | Organization | | | | + + + + + | [facility] | [address] | [place] | [phone] | | [facility] | | [address] | | | - LABORATORY | | | | + + + + + Vitamin B-12 (04/07/2016 2:34 PM PDT) + + + + + + | Component | Value | Ref Range | Performed | Pathologist | | | | | At | Signature | + + + + + + | VITAMIN | 179 (L)Comment: | 180 - 914 pg/mL | [facility] | | | B-12 | DEFICIENT: | | [facility] | | | | <145 | | MEDICAL | | | | pg/mLINDETERMINATE: | | CENTER - | | | | 145-180 pg/mL | | LABORATORY | | + + + + + + + + | Specimen | + + | Blood | + + + + + + + | Performing | Address | City/State/Zipcode | Phone Number | | Organization | | | | + + + + + | [facility] | [address] | [place] | [phone] | | [facility] | | [address] | | | - LABORATORY | | | | + + + + + XR Chest PA and Lateral (04/07/2016 2:14 PM PDT) + + | Specimen | + + | | + + + + + | Narrative | Performed At | + + + | TWO-VIEW CHEST: 04/07/2016 2:14 PM CLINICAL HISTORY: chf | [facility] | | COMPARISON: 04/06/2016 FINDINGS: Stable moderate cardiomegaly. Aorta | | | is tortuous and stable. No mediastinal widening. Pulmonary | | | vasculature is prominent, similar to the prior exam. Persistent | | | diffuse increase in lung density with a mixed interstitial and | | | airspace pattern. This would be consistent with pulmonary edema. This | | | is also similar to prior. Increased AP diameter with flattening of | | | the hemidiaphragms. Lateral view shows small posterior layering | | | pleural effusion. No areas of focal pulmonary consolidation. | | | Severe osteopenia with multiple vertebral compression deformities | | | including T6, T11 and L1. IMPRESSION - 1. Persistent | | | cardiomegaly, pulmonary vascular congestion, pleural effusion and | | | diffuse increase in lung density consistent with mild congestive heart | | | failure. 2. Osteopenia with multiple vertebral compression | | | deformities. Dictated and Signed by: Sergio Aleman MD | | | Electronically signed: 04/07/2016 2:36 PM | | + + + + + | Procedure Note | + + | Hector, Rad Results In - 04/07/2016 2:39 PM PDT TWO-VIEW CHEST: 04/07/2016 2:14 PM | | | | CLINICAL HISTORY: chf | | | | COMPARISON: 04/06/2016 | | | | FINDINGS: Stable moderate cardiomegaly. Aorta is tortuous and stable. No | | mediastinal widening. Pulmonary vasculature is prominent, similar to the prior | | exam. | | | | Persistent diffuse increase in lung density with a mixed interstitial and | | airspace pattern. This would be consistent with pulmonary edema. This is also | | similar to prior. Increased AP diameter with flattening of the hemidiaphragms. | | Lateral view shows small posterior layering pleural effusion. No areas of focal | | pulmonary consolidation. | | | | Severe osteopenia with multiple vertebral compression deformities including T6, | | T11 and L1. | | | | IMPRESSION - | | 1. Persistent cardiomegaly, pulmonary vascular congestion, pleural effusion and | | diffuse increase in lung density consistent with mild congestive heart failure. | | | | 2. Osteopenia with multiple vertebral compression deformities. | | | | Dictated and Signed by: Sergio Aleman MD | | Electronically signed: 04/07/2016 2:36 PM | + + + +---------+ + + | Performing | Address | City/State/Zipcode | Phone Number | | Organization | | | | + +---------+ + + | [facility] | | | | + +---------+ + + NM Nuclear Stress Test (Vasodilator) (04/07/2016 12:54 PM PDT) + + | Specimen | + + | | + + + + + | Impressions | Performed At | + + + | 1. Persantine EKG is negative. 2. Abnormal Persantine | [facility] | | Sestamibi myocardial perfusion study with a large size, partially | | | reversible defect of a severe in severity in the mid anterior, | | | distal anterior and apex. This suggests a large size, partial | | | myocardial ischemia of the proximal left anterior descending artery | | | territories. Gated SPECT reveals a normal left ventricular wall | | | thickness with akinesis of the mid anterior, distal anterior and | | | apex. Overall, left ventricular systolic and is severely | | | decreased. LVEF by gated SPECT is 29 %. | | | Signed by: Valeriy Ceballos MD [facility] 04/07/2016, 12:54 | | + + + + + + | Narrative | Performed At | + + + | NUCLEAR MEDICINE STRESS TEST REPORT | [facility] | | Patient Name: Alexsandra Hawkins Study Date: 04/07/2016 Primary | | | Care Provider: Anthony Atkins DO : | | | 1930 Age: 85 y.o. Gender: female CLINICAL | | | HISTORY/DIAGNOSIS: Heart failure/CAD PERSANTINE SESTAMIBI | | | STRESS TEST Indication: heart failure/CAD Procedure: In the | | | supine position, 32 mg of Persantine was infused intravenously | | | over 4 minutes. Blood pressure and EKG were monitored every 1 | | | minute. 5 mL of normal saline was utilized to flush the IV line. | | | 2.5 minutes later, 10.8 mCi sestamibi intravenous injection. | | | SPECT myocardial perfusion imaging was acquired with wall motion | | | analysis. Rest imaging was performed using 29.7 mCi Sestamibi | | | intravenous injection. Repeated SPECT myocardial perfusion imaging | | | was acquired with wall motion analysis. At the end of the | | | procedure, 75 mg of aminophylline was infused intravenously. | | | Hemodynamics: Heart rate baseline 80 beats per minute, peak 94 | | | beats per minute. Blood pressure baseline 124/71 mmHg, peak 114/56 | | | mmHg. EKG baseline underlying sinus rhythm, nonspecific ST-T | | | abnormalities. Peak unchanged. Side Effects: None. | | | Arrhythmia: None. Persantine Sestamibi Myocardial Perfusion | | | Imaging Result: The Persantine Sestamibi tomographic images, | | | reviewed without the attenuation compensation resolution, revealed a | | | large size, partially reversible defect of a severe in severity in | | | the mid anterior, distal anterior and apex. Abnormalities can be | | | seen in short axis, vertical long axis, and horizontal long axis | | | projections comprising approximately 31% of the left ventricular | | | myocardium. The left ventricular cavity is normal. The rest imaging | | | showed partial reversibility of the anterior wall defect. | | | Gated SPECT reveals a normal left ventricular wall thickness with | | | akinesis of the mid anterior, distal anterior and apex. Overall, | | | left ventricular systolic and is severely decreased. LVEF by | | | gated SPECT is 29 %. | | + + + + +---------+ + + | Performing | Address | City/State/Zipcode | Phone Number | | Organization | | | | + +---------+ + + | [facility] | | | | + +---------+ + + CBC no Differential (04/07/2016 4:02 AM PDT) + + + + + + | Component | Value | Ref Range | Performed | Pathologist | | | | | At | Signature | + + + + + + | White Blood | 14.7 (H) | 4.0 - 11.0 K/uL | [facility] | | | Cells | | | [facility] | | | [facility] | | [facility] - | | | | | | [facility]ORY | | + + + + + + | Red Blood | 3.38 (L) | 3.70 - 5.20 | [facility] | | | Cells | | M/uL | [facility] | | | | | | [facility] | | | | | | [facility] - | | | | | | LABORATORY | | + + + + + + | Hemoglobin | 7.7 (L) | 11.5 - 16.0 | [facility] | | | | | g/dL | [facility] | | | | | | [facility] | | | | | | [facility] - | | | | | | LABORATORY | | + + + + + + | Hematocrit | 24.4 (L) | 34.0 - 47.0 % | [facility] | | | | | | [facility] | | | | | | [facility] | | | | | | [facility] - | | | | | | LABORATORY | | + + + + + + | MCV | 72.2 (L) | 83.0 - 101.0 fL | [facility] | | | | | | [facility] | | | | | | [facility] | | [facility] | | | [facility] - | | | | | | LABORATORY | | + + + + + + | MCH | 22.7 (L) | 28.0 - 35.0 pg | [facility] | | | | | | [facility] | | | | | | [facility] | | | | | | [facility] - | | | | | | LABORATORY | | + + + + + + | MCHC | 31.4 (L) | 32.0 - 36.0 | [facility] | | | | | g/dL | [facility] | | | | | | [facility] | | | | | | [facility] - | | | | | | LABORATORY | | + + + + + + | RDW-CV | 16.3 (H) | <15.0 % | [facility] | | | | | | [facility] | [facility] | [facility] | | | | | | [facility] - | | | | | | LABORATORY | | + + + + + + | Platelet | 256 | 140 - 440 K/uL | [facility] | | | Count | | | [facility] | | | | | | [facility] | | | | | | [facility] - | | | | | | LABORATORY | | + + + + + + | MPV | 8.4 | fL | [facility] | | | | | | [facility] | | | | | | [facility] | | | | | | [facility] - | | | | | | LABORATORY | | + + + + + + + + | Specimen | + + | Blood | + + + + + + + | Performing | Address | City/State/Zipcode | Phone Number | | Organization | | | | + + + + + | [facility] | [address] | [place] | [phone] | | [facility] | | [address] | | | - LABORATORY | | | | + + + + + Basic Metabolic Panel (04/07/2016 4:02 AM PDT) + + + + + + | Component | Value | Ref Range | Performed | Pathologist | | | | | At | Signature | + + + + + + | Na | 134 (L) | 136 - 149 | [facility] | | | | | mmol/L | [facility] | | | [facility] | | [facility] | | | | | | [facility] - | | | | | | LABORATORY | | + + + + + + | K | 4.3 | 3.5 - 5.1 | [facility] | | | | | mmol/L | [facility] | | | | | | [facility] | | | | | | [facility] - | | | | | | LABORATORY | | + + + + + + | Cl | 103 | 98 - 109 mmol/L | [facility] | | | | | | [facility] | | | | | [facility] | | | | | | CENTER - | | | | | | LABORATORY | | + + + + + + | CO2 | 23 (L) | 24 - 31 mmol/L | [facility] | | | | | | [facility] | | | | | | [facility] | | | | | | CENTER - | | | | | | LABORATORY | | + + + + + + | Anion Gap | 8 | 3 - 16 mmol/L | [facility] | | | | | | [facility] | | | | | | [facility] | | | | | | [facility] - | | | | | | LABORATORY | | + + + + + + | Glucose | 151 (H) | 70 - 109 mg/dL | [facility] | | | | | | [facility] | | | | | | [facility] | | | | | | CENTER - | | | | | | LABORATORY | | + + + + + + | BUN | 40 (H) | 7 - 18 mg/dL | [facility] | | | | | | [facility] | | | | | | [facility] | | | | | | CENTER - | | | | | | LABORATORY | | + + + + + + | Creatinine | 2.54 (H) | 0.60 - 1.30 | [facility] | | | | | mg/dL | [facility] | | | | | | [facility] | | | | | | CENTER - | | | | | | LABORATORY | | + + + + + + | eGFR if not | 18 (L)Comment: | >=60 | [facility] | | | | GLOMERULAR FILTRATION | mL/min/1.73m2 | [facility] | | | [facility] | RATE,ESTIMATED | | MEDICAL | | | | mL/min/1.43w5Czpv than | | CENTER - | | | | 60 Chronic kidney | | LABORATORY | | | | disease,if found over a | | | | | | 3-month period.Less than | | | | | | 15 Kidney failureFor | | | | | | | | | | | | Americans,multiply the | | | | | | calculated GFR by 1.21. | | | | | | | | | | + + + + + + | Calcium | 8.3 | 8.3 - 10.5 | [facility] | | | | | mg/dL | [facility] | | | | | | [facility] | | | | | | CENTER - | | | | | | LABORATORY | | + + + + + + | BUN/Creatin | 15.7 | | [facility] | | | ine Ratio | | | [facility] | | | | | | [facility] | | | | | | CENTER - | | | | | | LABORATORY | | + + + + + + + + | Specimen | + + | Blood | + + + + + + + | Performing | Address | City/State/Zipcode | Phone Number | | Organization | | | | + + + + + | [facility] | [address] | [place], [place] | [phone] | | [facility] | | [address] | | | - LABORATORY | | | | + + + + + Troponin I (04/06/2016 10:24 PM PDT) + + + + + + | Component | Value | Ref Range | Performed | Pathologist | | | | | At | Signature | + + + + + + | Troponin I | 0.06 (H)Comment: | <0.06 ng/mL | [facility] | | | | Reference | | [facility] | | | | Ranges:0.00-0.06 = | | MEDICAL | | | | NORMAL>0.06 = | | CENTER - | | | | SUSPICIOUS FOR | | LABORATORY | | | | MYOCARDIAL DAMAGE NOTE: | | | | | | Values greater than 0.50 | | | | | | ng/mL have been shown | | | | | | to be strongly | | | | | | associated with acute | | | | | | myocardial infarction. | | | | | | The [employer] | | | | | | Cardiology (ACC) | | | | | | recommends a decision | | | | | | limit of 0.06 ng/mL for | | | | | | this assay. Results | | | | | | greater than 0.06 can | | | | | | reflect a pre-infarct | | | | | | acute coronary syndrome, | | | | | | but can also reflect | | | | | | myocardial necrosis or | | | | | | injury that is not due | | | | | | to coronary artery | | | | | | disease. Some of these | | | | | | causes are sepsis, | | | | | | hypocolemia, atrial | | | | | | fibrillation, heart | | | | | | failure, pulmonary | | | | | | embolism, myocarditis, | | | | | | myocardial contusion, | | | | | | and renal failure. The | | | | | | diagnosis of myocardial | | | | | | infarction should be | | | | | | based on a combination | | | | | | of the patient's | | | | | | clinical presentation | | | | | | and the clinical | | | | | | laboratory test results | | | | | | (especially serial | | | | | | troponin levels). | | | | + + + + + + + + | Specimen | + + | Blood | + + + + + + + | Performing | Address | City/State/Zipcode | Phone Number | | Organization | | | | + + + + + | [facility] | [address] | [place] | [phone] | | [facility] | | [address] | | | - LABORATORY | | | | + + + + + Troponin I (04/06/2016 4:43 PM PDT) + + + + + + | Component | Value | Ref Range | Performed | Pathologist | | | | | At | Signature | + + + + + + | Troponin I | 0.05Comment: Reference | <0.06 ng/mL | [facility] | | | | Ranges:0.00-0.06 = | | [facility] | | | | NORMAL>0.06 = | | MEDICAL | | | | SUSPICIOUS FOR | | CENTER - | | | | MYOCARDIAL DAMAGE NOTE: | | LABORATORY | | | | Values greater than 0.50 | | | | | | ng/mL have been shown | | | | | | to be strongly | | | | | | associated with acute | | | | | | myocardial infarction. | | | | | | The [employer] | | | | | | Cardiology (ACC) | | | | | | recommends a decision | | | | | | limit of 0.06 ng/mL for | | | | | | this assay. Results | | | | | | greater than 0.06 can | | | | | | reflect a pre-infarct | | | | | | acute coronary syndrome, | | | | | | but can also reflect | | | | | | myocardial necrosis or | | | | | | injury that is not due | | | | | | to coronary artery | | | | | | disease. Some of these | | | | | | causes are sepsis, | | | | | | hypocolemia, atrial | | | | | | fibrillation, heart | | | | | | failure, pulmonary | | | | | | embolism, myocarditis, | | | | | | myocardial contusion, | | | | | | and renal failure. The | | | | | | diagnosis of myocardial | | | | | | infarction should be | | | | | | based on a combination | | | | | | of the patient's | | | | | | clinical presentation | | | | | | and the clinical | | | | | | laboratory test results | | | | | | (especially serial | | | | | | troponin levels). | | | | + + + + + + + + | Specimen | + + | Blood | + + + + + + + | Performing | Address | City/State/Zipcode | Phone Number | | Organization | | | | + + + + + | [facility] | [address] | [place] | [phone] | | [facility] | | [address] | | | - LABORATORY | | | | + + + + + ECG 12 lead (04/06/2016 1:46 PM PDT) + + + + + + | Component | Value | Ref Range | Performed | Pathologist | | | | | At | Signature | + + + + + + | VENTRICULAR | 115 | BPM | [facility] | | | RATE EKG | | | | | + + + + + + | ATRIAL RATE | 115 | BPM | [facility] | | + + + + + + | P-R | 120 | ms | [facility] | | | INTERVAL | | | | | + + + + + + | QRS | 86 | ms | [facility] | | | DURATION | | | | | + + + + + + | Q-T | 298 | ms | [facility] | | | INTERVAL | | | | | + + + + + + | Q-T | 412 | ms | [facility] | | | INTERVAL | | | | | | (CORRECTED) | | | | | + + + + + + | P WAVE AXIS | 52 | degrees | [facility] | | + + + + + + | QRS AXIS | 31 | degrees | [facility] | | + + + + + + | T AXIS | 97 | degrees | [facility] | | + + + + + + | INTERPRETAT | Sinus tachycardia with | | [facility] | | | ION TEXT | frequent premature | | | | | | ventricular | | | | | | complexesincomplete | | | | | | right bundle branch | | | | | | blocknonspecific ST and | | | | | | T-wave abnormalities | | | | | | particularly in | | | | | | anterolateral/lateral | | | | | | and inferior leads: | | | | | | Consider | | | | | | ischemiaAbnormal ECGNo | | | | | | previous ECGs | | | | | | availableConfirmed by | | | | | | GAURI DAVILA MD ([id number]) | | | | | | on 04/07/2016 6:58:04 AM | | | | + + + + + + + + | Specimen | + + | | + + + + + | Narrative | Performed At | + + + | | | + + + + +---------+ + + | Performing | Address | City/State/Zipcode | Phone Number | | Organization | | | | + +---------+ + + | [facility] | | | | + +---------+ + + ECHO Complete (04/06/2016 11:52 AM PDT) + + | Specimen | + + | | + + + + | Addenda | + + | Addendum by Valeriy Ceballos MD on 04/08/2016 6:53 AM Correction; overall left | | ventricular systolic function is moderately decreased. LVEF is 40-45%. | + + + + + | Narrative | Performed At | + + + | [facility] ECHOCARDIOGRAM REPORT | | | STUDY DATE: 04/06/2016 PATIENT NAME: Alexsandra Hawkins | | | : 1930 PCP: Anthony Atkins DO | | | CLINICAL HISTORY/DIAGNOSIS: CHF A transthoracic | | | echocardiogram with M-mode, pulsed-wave and color Doppler was | | | performed with standard views obtained. The technical quality of | | | this examination is adequate. The heart rhythm during the echo is | | | sinus rhythm. The M-mode, two-dimensional, color flow and spectral | | | Doppler data were reviewed and support the following | | | interpretation: Interpretation: Left Atrium: Left atrial size is | | | mildly dilated. Left ventricle: Left ventricular size normal with | | | normal wall thickness. There is a segmental wall motion | | | abnormality with severe hypokinesis of the mid anterior, mid | | | anteroseptal, distal anterior and distal septum. Overall left | | | ventricular systolic function is low normal The estimated ejection | | | fraction is 50-55 %. Grade 1 left ventricular diastolic | | | dysfunction. Aortic root: Aortic root is normal. Right Atrium: | | | Right atrial size is normal. Right ventricle: Right ventricular | | | size is normal with normal wall thickness and normal right | | | ventricular systolic function. Pericardium: Pericardium is normal. | | | Pulmonary artery: Pulmonary artery is normal. moderate pulmonary | | | hypertension with a peak systolic pressure of 55-60 mmHg. Aortic | | | valve: Aortic valve is trileaflet and opens normally. trace aortic | | | valve insufficiency. Mitral valve: Mitral valve is mild thickened | | | with a mild to moderate mitral valve regurgitation. There is a | | | mild mitral annular calcification . Pulmonic valve: Pulmonic | | | valve is normal. Tricuspid valve: Tricuspid valve is normal. mild | | | tricuspid regurgitation. Vena cava: Dilated IVC with a normal | | | respiratory collapse. IMPRESSIONS: 1. Mild left atrial | | | dilatation. 2. Normal left ventricular size and wall | | | thickness.There is a segmental wall motion abnormality with severe | | | hypokinesis of the mid anterior, mid anteroseptal, distal anterior | | | and distal septum. Overall left ventricular systolic function is | | | low normal The estimated ejection fraction is 50-55 %. 3. | | | Grade 1 left ventricular diastolic dysfunction. 4. Trace aortic | | | valve insufficiency. 5. Mildly thickened mitral valve with | | | [id number] mitral valve regurgitation. 6. Mild mitral | | | annular calcification. 7. Mild tricuspid valve regurgitation. 8. | | | Moderate pulmonary hypertension with a peak systole pressure of | | | 55-60 mmHg. 9. Dilated IVC with normal respiratory collapse. | | | Measurements: Height: 4'11" Weight: 124 Aortic root: | | | 30 mm Aortic cusp sep: 17 mm LA: 48 mm IVS-diastole: | | | 9 mm IVS-systole: mm LVPW diastole: 10 mm LVPW | | | systole: mm LVIDD: 52 mm LVIDS: mm Fractional | | | shortening: % PFV aortic valve: m/s MPG mitral valve: | | | mmHg PFV TR jet: 3.39 m/s RA/RV PP. mmHg LA | | | volume: 86 mL LA index: 59 mL/m2 Mitral Inflow DT: 105 | | | ms IVRT: 58 ms Valsalva: NOT NEEDED PWDTI S wave: 5 | | | cm/s PWDTI e' wave: 7 cm/s PWDTI a' wave: 11 cm/s E/A Ratio: | | | 0.63 E/e' Ratio: 13.3 Signed by: Valeriy | | | MD Tucker [facility] 04/06/2016 11:49 Can Handler: Narayan | | | Narum, RDCS, RDMS, RVT | | + + + XR Chest AP Portable (04/06/2016 11:50 AM PDT) + + | Specimen | + + | | + + + + + | Narrative | Performed At | + + + | EXAM: XR CHEST AP PORTABLE dated 04/06/2016 11:49 AM HISTORY: chf | [facility] | | eval Comparison: None. TECHNIQUE: A single portable view of | | | the chest. FINDINGS: Symmetric low lung volumes. Prominence of | | | the pulmonary interstitium and vasculature. Blunting of the | | | costophrenic angles. Moderate cardiomegaly. No pneumothorax. No | | | visible acute osseous abnormalities. IMPRESSION - Findings | | | would be consistent with the given history of congestive heart | | | failure. Dictated and Signed by: Kalen Cordova MD | | | Electronically signed: 04/06/2016 12:00 PM | | + + + + + | Procedure Note | + + | Hector, Rad Results In - 04/06/2016 12:03 PM PDT EXAM: XR CHEST AP PORTABLE dated | | 04/06/2016 11:49 AMHISTORY: chf evalComparison: None.TECHNIQUE: A single portable view of | | the chest.FINDINGS:Symmetric low lung volumes. Prominence of the pulmonary interstitium | | andvasculature. Blunting of the costophrenic angles. Moderate cardiomegaly. | | Nopneumothorax. No visible acute osseous abnormalities. IMPRESSION -Findings would be | | consistent with the given history of congestive heart failure.Dictated and Signed by: | | Kalen Cordova MD Electronically signed: 04/06/2016 12:00 PM | | | |FINDINGS: | |Symmetric low lung volumes. Prominence of the pulmonary interstitium and | |vasculature. Blunting of the costophrenic angles. Moderate cardiomegaly. No | |pneumothorax. No visible acute osseous abnormalities. | | | |IMPRESSION - | | | |Findings would be consistent with the given history of congestive heart failure. | | | |Dictated and Signed by: Kalen Cordova MD | | Electronically signed: 04/06/2016 12:00 PM | + + + +---------+ + + | Performing | Address | City/State/Zipcode | Phone Number | | Organization | | | | + +---------+ + + | [facility] | | | | + +---------+ + + CBC with Differential (04/06/2016 10:07 AM PDT) + + + + + + | Component | Value | Ref Range | Performed | Pathologist | | | | | At | Signature | + + + + + + | White Blood | 9.9 | 4.0 - 11.0 K/uL | [facility] | | | Cells | | | [facility] | | | | | | [facility]ICAL | | | | | | CENTER - | | | | | | LABORATORY | | + + + + + + | Red Blood | 3.53 (L) | 3.70 - 5.20 | [facility] | | | Cells | | M/uL | [facility] | | | | | | MEDICAL | | | | | | CENTER - | | | | | | LABORATORY | | + + + + + + | Hemoglobin | 8.1 (L) | 11.5 - 16.0 | [facility] | | | | | g/dL | [facility] | | | | | | MEDICAL | | | | | | CENTER - | | | | | | LABORATORY | | + + + + + + | Hematocrit | 25.6 (L) | 34.0 - 47.0 % | [facility] | | | | | | [facility] | | | | | | MEDICAL | | | | | | CENTER - | | | | | | LABORATORY | | + + + + + + | MCV | 72.4 (L) | 83.0 - 101.0 fL | [facility] | | | | | | [facility] | | | | | | MEDICAL | | | | | | CENTER - | | | | | | LABORATORY | | + + + + + + | MCH | 22.9 (L) | 28.0 - 35.0 pg | [facility] | | | | | | [facility] | | | | | | [facility]ICAL | | | | | | CENTER - | | | | | | LABORATORY | | + + + + + + | MCHC | 31.6 (L) | 32.0 - 36.0 | [facility] | | | | | g/dL | [facility] | | | | | | MEDICAL | | | | | | CENTER - | | | | | | LABORATORY | | + + + + + + | RDW-CV | 16.1 (H) | <15.0 % | [facility] | | | | | | [facility] | | | | | | [facility]ICAL | | | | | | CENTER - | | | | | | LABORATORY | | + + + + + + | Platelet | 271 | 140 - 440 K/uL | [facility] | | | Count | | | [facility] | | | | | | [facility]ICAL | | | | | | CENTER - | | | | | | LABORATORY | | + + + + + + | MPV | 8.5 | fL | [facility] | | | | | | [facility] | | | | | | [facility]ICAL | | | | | | CENTER - | | | | | | LABORATORY | | + + + + + + | % | 97.8 (H) | 45.0 - 82.0 % | [facility] | | | Neutrophils | | | [facility] | | | | | | MEDICAL | | | | | | CENTER - | | | | | | LABORATORY | | + + + + + + | % | 1.7 (L) | 20.0 - 45.0 % | [facility] | | | Lymphocytes | | | [facility] | | | | | | MEDICAL | | | | | | CENTER - | | | | | | LABORATORY | | + + + + + + | % Monocytes | 0.4 (L) | 4.0 - 12.0 % | [facility] | | | | | | [facility] | | | | | | [facility]ICAL | | | | | | CENTER - | | | | | | LABORATORY | | + + + + + + | % | 0.0 | 0.0 - 5.0 % | [facility] | | | Eosinophils | | | [facility] | | | | | | MEDICAL | | | | | | CENTER - | | | | | | LABORATORY | | + + + + + + | % Basophils | 0.1 | 0.0 - 1.0 % | [facility] | | | | | | [facility] | | | | | | MEDICAL | | | | | | CENTER - | | | | | | LABORATORY | | + + + + + + | Absolute | 9.70 (H) | 1.80 - 8.50 | [facility] | | | Neutrophils | | K/uL | [facility] | | | | | | [facility] | | | | | | CENTER - | | | | | | LABORATORY | | + + + + + + | Absolute | 0.20 (L) | 0.60 - 3.20 | [facility] | | | Lymphocytes | | K/uL | [facility] | | | | | | [facility]ICAL | | | | | | CENTER - | | | | | | LABORATORY | | + + + + + + | Absolute | 0.00 | 0.00 - 1.00 | [facility] | | | Monocytes | | K/uL | [facility] | | | | | | [facility]ICAL | | | | | | CENTER - | | | | | | LABORATORY | | + + + + + + | Absolute | 0.00 | 0.00 - 0.40 | [facility] | | | Eosinophils | | K/uL | [facility] | | | | | | MEDICAL | | | | | | CENTER - | | | | | | LABORATORY | | + + + + + + | Absolute | 0.00 | 0.00 - 0.10 | [facility] | | | Basophils | | K/uL | [facility] | | | | | | MEDICAL | | | | | | CENTER - | | | | | | LABORATORY | | + + + + + + + + | Specimen | + + | Blood | + + + + + + + | Performing | Address | City/State/Zipcode | Phone Number | | Organization | | | | + + + + + | [facility] | [address] | [place] | [phone] | | [facility] | | [address] | | | - LABORATORY | | | | + + + + + Troponin I (04/06/2016 10:06 AM PDT) + + + + + + | Component | Value | Ref Range | Performed | Pathologist | | | | | At | Signature | + + + + + + | Troponin I | 0.04Comment: Reference | <0.06 ng/mL | [facility] | | | | Ranges:0.00-0.06 = | | [facility] | | | | NORMAL>0.06 = | | MEDICAL | | | | SUSPICIOUS FOR | | CENTER - | | | | MYOCARDIAL DAMAGE NOTE: | | LABORATORY | | | | Values greater than 0.50 | | | | | | ng/mL have been shown | | | | | | to be strongly | | | | | | associated with acute | | | | | | myocardial infarction. | | | | | | The [employer] | | | | | | Cardiology (ACC) | | | | | | recommends a decision | | | | | | limit of 0.06 ng/mL for | | | | | | this assay. Results | | | | | | greater than 0.06 can | | | | | | reflect a pre-infarct | | | | | | acute coronary syndrome, | | | | | | but can also reflect | | | | | | myocardial necrosis or | | | | | | injury that is not due | | | | | | to coronary artery | | | | | | disease. Some of these | | | | | | causes are sepsis, | | | | | | hypocolemia, atrial | | | | | | fibrillation, heart | | | | | | failure, pulmonary | | | | | | embolism, myocarditis, | | | | | | myocardial contusion, | | | | | | and renal failure. The | | | | | | diagnosis of myocardial | | | | | | infarction should be | | | | | | based on a combination | | | | | | of the patient's | | | | | | clinical presentation | | | | | | and the clinical | | | | | | laboratory test results | | | | | | (especially serial | | | | | | troponin levels). | | | | + + + + + + + + | Specimen | + + | Blood | + + + + + + + | Performing | Address | City/State/Zipcode | Phone Number | | Organization | | | | + + + + + | [facility] | [address] | [place] | [phone] | | [facility] | | [address] | | | - LABORATORY | | | | + + + + + B Type Natriuretic Peptide (04/06/2016 10:06 AM PDT) + + + + + + | Component | Value | Ref Range | Performed | Pathologist | | | | | At | Signature | + + + + + + | BNP | 2,368 (H) | <100 pg/mL | [facility] | | | | | | [facility] | | | | | | MEDICAL | | | | | | CENTER - | | | | | | LABORATORY | | + + + + + + + + | Specimen | + + | Blood | + + + + + + + | Performing | Address | City/State/Zipcode | Phone Number | | Organization | | | | + + + + + | [facility] | [address] | [place] | [phone] | | [facility] | | [address] | | | - LABORATORY | | | | + + + + + Basic Metabolic Panel (04/06/2016 10:06 AM PDT) + + + + + + | Component | Value | Ref Range | Performed | Pathologist | | | | | At | Signature | + + + + + + | Na | 139 | 136 - 149 | [facility] | | | | | mmol/L | [facility] | | | | | | MEDICAL | | | | | | CENTER - | | | | | | LABORATORY | | + + + + + + | K | 3.7 | 3.5 - 5.1 | [facility] | | | | | mmol/L | [facility] | | | | | | MEDICAL | | | | | | CENTER - | | | | | | LABORATORY | | + + + + + + | Cl | 106 | 98 - 109 mmol/L | [facility] | | | | | | [facility] | | | | | | MEDICAL | | | | | | CENTER - | | | | | | LABORATORY | | + + + + + + | CO2 | 19 (L) | 24 - 31 mmol/L | [facility] | | | | | | [facility] | | | | | | MEDICAL | | | | | | CENTER - | | | | | | LABORATORY | | + + + + + + | Anion Gap | 14 | 3 - 16 mmol/L | [facility] | | | | | | [facility] | | | | | | MEDICAL | | | | | | CENTER - | | | | | | LABORATORY | | + + + + + + | Glucose | 310 (H) | 70 - 109 mg/dL | [facility] | | | | | | [facility] | | | | | | [facility] | | | | | | C[facility] - | | | | | | LABORATORY | | + + + + + + | BUN | 25 (H) | 7 - 18 mg/dL | [facility] | | | | | | [facility] | | | | | | MEDICAL | | | | | | CENTER - | | | | | | LABORATORY | | + + + + + + | Creatinine | 1.80 (H) | 0.60 - 1.30 | [facility] | | | | | mg/dL | [facility] | | | | | | MEDICAL | | | | | | CENTER - | | | | | | LABORATORY | | + + + + + + | eGFR if not | 27 (L)Comment: | >=60 | [facility] | | | | GLOMERULAR FILTRATION | mL/min/1.73m2 | [facility] | | | GUAMANIAN | RATE,ESTIMATED | | MEDICAL | | | | mL/min/1.78r2Gxgc than | | CENTER - | | | | 60 Chronic kidney | | LABORATORY | | | | disease,if found over a | | | | | | 3-month period.Less than | | | | | | 15 Kidney failureFor | | | | | | | | | | | | Americans,multiply the | | | | | | calculated GFR by 1.21. | | | | | | | | | | + + + + + + | Calcium | 8.1 (L) | 8.3 - 10.5 | [facility] | | | | | mg/dL | [facility] | | | | | | MEDICAL | | | | | | CENTER - | | | | | | LABORATORY | | + + + + + + | BUN/Creatin | 13.9 | | [facility] | | | ine Ratio | | | [facility] | | | | | | MEDICAL | | | | | | CENTER - | | | | | | LABORATORY | | + + + + + + + + | Specimen | + + | Blood | + + + + + + + | Performing | Address | City/State/Zipcode | Phone Number | | Organization | | | | + + + + + | [facility] | [address] | [place] | [phone] | | [facility] | | [address] | | | - LABORATORY | | | | + + + + + Culture, MRSA (04/06/2016 7:04 AM PDT) + + + + + + | Component | Value | Ref Range | Performed | Pathologist | | | | | At | Signature | + + + + + + | Culture | Negative for MRSA by | | [facility] | | | | chromogenic agar method | | [facility] | | | | | | MEDICAL | | | | | | CENTER - | | | | | | LABORATORY | | + + + + + + + + | Specimen | + + | Respiratory - Both | | anterior nares (body | | structure) | + + + + + + + | Performing | Address | City/State/Zipcode | Phone Number | | Organization | | | | + + + + + | [facility] | [address] | [place], [place] | [phone] | | [facility] | | [address] | | | - LABORATORY | | | | + + + + + LABS - EXTERNAL SCAN (04/06/2016 12:00 AM PDT) + + + | Narrative | Performed At | + + + | Ordered by an | | | unspecified provider. | | + + + IMAGING REPORT - EXTERNAL SCAN (04/06/2016 12:00 AM PDT) + + + | Narrative | Performed At | + + + | Ordered by an | | | unspecified provider. | | + + + ECG - EXTERNAL SCAN (04/06/2016 12:00 AM PDT) + + + | Narrative | Performed At | + + + | Ordered by an | | | unspecified provider. | | + + + documented in this encounter Visit Diagnoses + + | Diagnosis | + + | Acute respiratory failure with hypoxia (HCC) Acute respiratory failure | + + | Acute on chronic congestive heart failure, unspecified congestive heart failure type | + + | Shortness of breath | + + | Anemia, unspecified type | + + | Acute on chronic systolic congestive heart failure (HCC) Acute on chronic systolic | | heart failure | + + | CKD (chronic kidney disease) stage 4, GFR 15-29 ml/min (HCC) Chronic kidney disease, | | Stage IV (severe) | + + | Ischemic cardiomyopathy Other specified forms of chronic ischemic heart disease | + + documented in this encounter Admitting Diagnoses + + | Diagnosis | + + | CHF (congestive heart failure) (HCC) Congestive heart failure, unspecified | + + documented in this encounter Administered Medications + +--------+ +--------+------+------+ | Medication Order | MAR | Action | Dose | Rate | Site | | | Action | Date | | | | + +--------+ +--------+------+------+ | acetaminophen (TYLENOL) tablet | Given | 04/08/20 | 650 mg | | | | 650 mg 650 mg, Oral, EVERY 4 | | 16 2:57 | | | | | HOURS PRN, Pain, or fever >= 38.3 | | PM PDT | | | | | C (101.5 F), Starting 04/06/16 | | | | | | | at 0943 | | | | | | + +--------+ +--------+------+------+ +-------+ +--------+---+---+ | Given | 04/07/20 | 650 mg | | | | | 16 1:06 | | | | | | PM PDT | | | | +-------+ +--------+---+---+ | Given | 04/06/20 | 650 mg | | | | | 16 8:38 | | | | | | PM PDT | | | | +-------+ +--------+---+---+ +---+---+ | | | +---+---+ + +-------+ +-------+---+---+ | albuterol-ipratropium (DUONEB) | Given | 04/06/20 | 3 mLs | | | | 2.5-0.5 mg/3 mL nebulizer | | 16 11:55 | | | | | solution 3 mL 3 mL, | | AM PDT | | | | | Nebulization, RT Q4H, First dose | | | | | | | on 04/06/16 at 1200 | | | | | | + +-------+ +-------+---+---+ +---+---+ | | | +---+---+ + +-------+ +-------+---+---+ | aspirin chewable tablet 81 mg | Given | 04/09/20 | 81 mg | | | | 81 mg, Oral, DAILY, First dose on | | 16 8:58 | | | | | 04/07/16 at 0900 | | AM PDT | | | | + +-------+ +-------+---+---+ +-------+ +-------+---+---+ | Given | 04/08/20 | 81 mg | | | | | 16 9:57 | | | | | | AM PDT | | | | +-------+ +-------+---+---+ | Given | 04/07/20 | 81 mg | | | | | 16 8:52 | | | | | | AM PDT | | | | +-------+ +-------+---+---+ +---+---+ | | | +---+---+ + +-------+ +-------+---+---+ | atorvaSTATin (LIPITOR) tablet | Given | 04/08/20 | 20 mg | | | | 20 mg 20 mg, Oral, NIGHTLY, | | 16 9:39 | | | | | First dose on Wed04/08/16 at 2100 | | PM PDT | | | | + +-------+ +-------+---+---+ +---+---+ | | | +---+---+ + +-------+ + +---+---+ | carvedilol (COREG) tablet 3.125 | Given | 04/09/20 | 3.125 mg | | | | mg 3.125 mg, Oral, 2 TIMES | | 16 4:28 | | | | | DAILY WITH BREAKFAST & DINNER, | | PM PDT | | | | | First dose on Wed04/07/16 at 0800 | | | | | | + +-------+ + +---+---+ +-------+ + +---+---+ | Given | 04/09/20 | 3.125 mg | | | | | 16 8:58 | | | | | | AM PDT | | | | +-------+ + +---+---+ | Given | 04/08/20 | 3.125 mg | | | | | 16 6:18 | | | | | | PM PDT | | | | +-------+ + +---+---+ +---+---+ | | | +---+---+ + +-------+ +--------+---+ + | cyanocobalamin (VITAMIN B-12) | Given | 04/07/20 | 1,000 | | Deltoid- | | injection 1,000 mcg 1,000 mcg, | | 16 7:17 | mcg | | Left | | Intramuscular, ONCE, Wed04/07/16 | | PM PDT | | | | | at 1900, For 1 dose | | | | | | + +-------+ +--------+---+ + +---+---+ | | | +---+---+ + +-------+ +--------+---+---+ | cyanocobalamin (VITAMIN B-12) | Given | 04/09/20 | 1,000 | | | | tablet 1,000 mcg 1,000 mcg, | | 16 8:58 | mcg | | | | Oral, DAILY, First dose on e | | AM PDT | | | | | 04/07/16 at 1900 | | | | | | + +-------+ +--------+---+---+ +-------+ +--------+---+---+ | Given | 04/08/20 | 1,000 | | | | | 16 9:57 | mcg | | | | | AM PDT | | | | +-------+ +--------+---+---+ | Given | 04/07/20 | 1,000 | | | | | 16 7:17 | mcg | | | | | PM PDT | | | | +-------+ +--------+---+---+ +---+---+ | | | +---+---+ + + + +---------+--------+---+ | dipyridamole (PERSANTINE) 60mg | Given by | 04/07/20 | 7.9804 | 319.2 | | | in 40 mL NS syringe 0.142 | Other | 16 8:46 | mg/min | mL/hr | | | mg/kg/min | | AM PDT | | | | | 56.2 kg (319.216 mL/hr, rounded | | | | | | | to 319.2 mL/hr), Intravenous, | | | | | | | Administer over 4 Minutes, ONCE, | | | | | | | 04/07/16 at 0845, For 1 dose, | | | | | | | Nuclear Medicine | | | | | | + + + +---------+--------+---+ +---+---+ | | | +---+---+ + +-------+ +--------+---+---+ | docusate sodium (COLACE) | Given | 04/06/20 | 100 mg | | | | capsule 100 mg 100 mg, Oral, 2 | | 16 7:38 | | | | | TIMES DAILY PRN, Constipation, | | PM PDT | | | | | Starting 04/06/16 at 0943, 1st | | | | | | | line agent for constipation | | | | | | | relief., | | | | | | + +-------+ +--------+---+---+ +---+---+ | | | +---+---+ + +-------+ +-------+---+---+ | furosemide (LASIX) injection 40 | Given | 04/09/20 | 40 mg | | | | mg 40 mg, Intravenous, 2 TIMES | | 16 4:28 | | | | | DAILY 0800 & 1600, First dose on | | PM PDT | | | | | 04/06/16 at 1100, Recommended | | | | | | | maximum rate of infusion 4 | | | | | | | mg/min., | | | | | | + +-------+ +-------+---+---+ +-------+ +-------+---+---+ | Given | 04/09/20 | 40 mg | | | | | 16 8:58 | | | | | | AM PDT | | | | +-------+ +-------+---+---+ | Given | 04/07/20 | 40 mg | | | | | 16 7:15 | | | | | | PM PDT | | | | +-------+ +-------+---+---+ +---+---+ | | | +---+---+ + +-------+ +-------+---+---+ | furosemide (LASIX) injection 40 | Given | 04/08/20 | 40 mg | | | | mg 40 mg, Intravenous, ONCE, | | 16 1:02 | | | | | 04/08/16 at 0930, For 1 dose, | | PM PDT | | | | | Give 30 min into blood | | | | | | | transfusion, | | | | | | + +-------+ +-------+---+---+ +---+---+ | | | +---+---+ + +-------+ +--------+---+ + | heparin 5,000 units/mL | Given | 04/09/20 | 5,000 | | Abdomen- | | injection 5,000 Units 5,000 | | 16 9:04 | Units | | LLQ | | Units, Subcutaneous, EVERY 12 | | AM PDT | | | | | HOURS (2 times per day), First | | | | | | | dose on 04/06/16 at 1000 | | | | | | + +-------+ +--------+---+ + +-------+ +--------+---+ + | Given | 04/08/20 | 5,000 | | Abdomen- | | | 16 9:41 | Units | | RUQ | | | PM PDT | | | | +-------+ +--------+---+ + | Given | 04/08/20 | 5,000 | | Abdomen- | | | 16 9:57 | Units | | LLQ | | | AM PDT | | | | +-------+ +--------+---+ + +---+---+ | | | +---+---+ + +---------+ +--------+-------+---+ | iron sucrose (VENOFER) 200 mg | New Bag | 04/07/20 | 200 mg | 110 | | | in sodium chloride 0.9% 100 mL | | 16 7:15 | | mL/hr | | | IVPB 200 mg, Intravenous, | | PM PDT | | | | | Administer over 60 Minutes, ONCE, | | | | | | | 04/07/16 at 1900, For 1 dose | | | | | | + +---------+ +--------+-------+---+ +---+---+ | | | +---+---+ + +---------+ +--------+-------+---+ | iron sucrose (VENOFER) 200 mg | New Bag | 04/08/20 | 200 mg | 110 | | | in sodium chloride 0.9% 100 mL | | 16 7:36 | | mL/hr | | | IVPB 200 mg, Intravenous, | | AM PDT | | | | | Administer over 60 Minutes, ONCE, | | | | | | | 04/08/16 at 0700, For 1 dose | | | | | | + +---------+ +--------+-------+---+ +---+---+ | | | +---+---+ + +---------+ +--------+-------+---+ | iron sucrose (VENOFER) 200 mg | New Bag | 04/09/20 | 200 mg | 110 | | | in sodium chloride 0.9% 100 mL | | 16 10:39 | | mL/hr | | | IVPB 200 mg, Intravenous, | | AM PDT | | | | | Administer over 60 Minutes, ONCE, | | | | | | | Terri 04/09/16 at 0945, For 1 dose | | | | | | + +---------+ +--------+-------+---+ +---+---+ | | | +---+---+ + +-------+ +------+---+---+ | morphine injection 2-6 mg 2-6 | Given | 04/08/20 | 2 mg | | | | mg, Intravenous, EVERY 2 HOURS | | 16 10:45 | | | | | PRN, Pain, Starting 04/06/16 at | | AM PDT | | | | | 0943, Slow IV push, not faster | | | | | | | than 2 mg/minute. If ineffective | | | | | | | or not tolerated, use | | | | | | | hydromorphone IV if ordered., | | | | | | + +-------+ +------+---+---+ +-------+ +------+---+---+ | Given | 04/08/20 | 2 mg | | | | | 16 1:22 | | | | | | AM PDT | | | | +-------+ +------+---+---+ | Given | 04/07/20 | 2 mg | | | | | 16 4:50 | | | | | | AM PDT | | | | +-------+ +------+---+---+ +---+---+ | | | +---+---+ + + + +------+---+---+ | ondansetron (ZOFRAN) injection | Given by | 04/07/20 | 4 mg | | | | 4 mg 4 mg, Intravenous, EVERY 6 | Other | 16 2:33 | | | | | HOURS PRN, Nausea, Vomiting, | | PM PDT | | | | | Starting 04/06/16 at 0943, | | | | | | | First line agent, | | | | | | + + + +------+---+---+ +---+---+ | | | +---+---+ + +-------+ + +---+---+ | technetium TC-99M sestamibi | Given | 04/07/20 | 30 | | | | (CARDIOLITE) injection 30 | | 16 12:31 | -millicu | | | | millicurie 30 -millicurie, | | PM PDT | concetta | | | | Intravenous, ONCE PRN, Other, | | | | | | | Starting [facility] 04/07/16 at 1231, For | | | | | | | 1 dose, Nuclear Medicine | | | | | | + +-------+ + +---+---+ +---+---+ | | | +---+---+ + +-------+ + +---+---+ | technetium TC-99M sestamibi | Given | 04/07/20 | 9 | | | | (CARDIOLITE) injection 9 | | 16 8:24 | -millicu | | | | millicurie 9 -millicurie, | | AM PDT | concetta | | | | Intravenous, ONCE PRN, Other, | | | | | | | Starting [facility] 04/07/16 at 0823, For | | | | | | | 1 dose, Nuclear Medicine | | | | | | + +-------+ + +---+---+ +---+---+ | | | +---+---+ documented in this encounter
--- OUTSIDE RECORDS SUMMARY | ~2020-05-14 | XMS | Encounter Summary ---
Demographics + + + | Address | [address] | | | [place] [address] | + + + | Home Phone | | + + + | Preferred Language | Unknown | + + + | Marital Status | | + + + | Zoroastrian Affiliation | Unknown | + + + | Race | Unknown | + + + | Ethnic Group | Unknown | + + + Author + + + | Author | [facility] | | | and [place] | + + + | Organization | [facility] | | | [...] Team Providers + +------+ + | Care Pharmacy Account Director Name | Role | Phone | + +------+ + | Anthony Atkins DO | PCP | | + +------+ + Encounter Details +--------+ + + + + | Date | Type | Department | Care Team | Description | +--------+ + + + + | 04/15/ | Abstract | [facility] | Valeriy Ceballos, | | | 2015 | | CARDIOLOGY [address] | | | | | [place], | [place], | | | | | [place] [address] | [place] [address] | | | | | [phone] | [phone] | | | | | | | | +--------+ + + + [...]
--- OUTSIDE RECORDS SUMMARY | ~2020-05-14 | XMS | Encounter Summary ---
Demographics + + + | Address | [address] | | | [place] [address] | + + + | Home Phone | | + + + | Preferred Language | Unknown | + + + | Marital Status | | + + + | Spiritism Affiliation | Unknown | + + + | Race | Unknown | + + + | Ethnic Group | Unknown | + + + Author + + + | Author | [facility] | | | and [place] | + + + | Organization | [facility] | | [...] Team Providers + +------+ + | Care Director Of Occupational Health Name | Role | Phone | + +------+ + | Anthony Atkins DO | PCP | | + +------+ + Encounter Details +--------+ + + + + | Date | Type | Department | Care Team | Description | +--------+ + + + + | 12/07/ | Orders Only | [facility] | Anthony Atkins, | | | 2019 | | CONVERSION 888 | DO [address] | | | | | [address] | [place] [address] | | | | | [place], [place] | [phone] | | | | | [address] | | | | | | [phone] | | | +--------+ + + + [...] + +--------+ + + + | ECHO INTERPRETATION | Routin | 12/07/2018 | | Results for this | | OF OUTSIDE FILMS | e | 4:09 PM | | procedure are in the | | | | PST | | results section. | + +--------+ + + + documented in this encounter Results ECHO Interpretation of Outside Films (12/07/2018 4:09 PM PST) + + | Specimen | + + | | + + + + + | Impressions | Performed At | + + + | 1. The left ventricle cavity size is normal in size, mildly impaired | | | systolic function EF 40-45%. 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 2. The right ventricle is normal in size and | | | function. 3. The aortic valve is mildly calcified with mild | | | regurgitation. 4. Mild tricuspid regurgitation and mild pulmonary | | | hypertension RVSP 42 mmHg. 5. There is no pericardial effusion. 6. | | | Compared with the findings of the prior study 2015, there has been no | | | significant change. | | + + + + + + | Narrative | Performed At | + + + | Patient Name: ALEXSANDRA ELLER Date of : 1930 | | | Performing Physician: Celia Hoffman | | | | | | INDICATIONS CHF CONCLUSIONS 1. The | | | left ventricle cavity size is normal in size, mildly impaired systolic | | | function EF 40-45%. Anteroseptal, septal and apical aneurysm with | | | dyskinesis. 2. The right ventricle is normal in size and function. | | | 3. The aortic valve is mildly calcified with mild regurgitation. 4. | | | Mild tricuspid regurgitation and mild pulmonary hypertension RVSP 42 | | | mmHg. 5. There is no pericardial effusion. 6. Compared with the | | | findings of the prior study 2016, there has been no significant | | | change. FINDINGS -------- ECG rhythm: Frequent ventricular | | | premature beats. Study: A 2-dimensional transthoracic | | | echocardiogram with m-mode, spectral and color flow Doppler was | | | perfomed. Study: This was a technically adequate study. Left | | | Ventricle: Overall left ventricular systolic function is | | | mild-moderately impaired with, an EF between 40 - 45 %. Left | | | Ventricle: The left ventricle cavity size is normal. Left Ventricle: | | | Mild septal hypertrophy with septal thickness 13 - 15 mm. Left | | | Ventricle: Anteroseptal, septal and apical aneurysm with dyskinesis. | | | Right Ventricle: The right ventricle is normal in size and function. | | | Left Atrium: The left atrium is mildly enlarged. Right Atrium: The | | | right atrium is mildly enlarged. Aortic Valve: The aortic valve is | | | mildly calcified. Aortic Valve: There is mild aortic regurgitation. | | | Aortic Valve: There is no evidence of aortic stenosis. Aortic Valve: | | | The aortic valve appears to be trileaflet. Aortic Valve: Aortic valve | | | is mildly thickened. Aortic Valve: The aortic pressure half-time by | | | doppler is 582ms. Mitral Valve: Normal appearing mitral valve. | | | Mitral Valve: Mild mitral regurgitation is present. Tricuspid Valve: | | | The tricuspid valve appears structurally normal. Tricuspid Valve: | | | Mild tricuspid regurgitation present. Tricuspid Valve: There is mild | | | pulmonary hypertension. Tricuspid Valve: The right ventricular | | | systolic pressure (pulmonary artery systolic pressure), as measured by | | | Doppler, is 42.06mmHg. Pulmonic Valve: Pulmonic valve appears | | | structurally normal. Pulmonic Valve: Trace pulmonic regurgitation. | | | Pericardium: There is no pericardial effusion. Pericardium: No | | | pleural effusion seen. IVC/Hepatic Veins: The inferior vena cava is | | | normal in size and collapses > 50 % with sniff, indicating normal | | | central venous pressures. Aorta: The aortic root, ascending aorta and | | | aortic arch are normal in size. General comments: Compared with the | | | findings of the prior study, there has been no significant change. | | | MEASUREMENTS Ao asc: 2.63 cm Ao sinus: 2.92 cm | | | Ao st junct: 2.26 cm IVC: 1.99 cm LA Diam: 3.64 cm | | | EDV(Teich): 46.19 ml IVSd: 1.43 cm LVIDd: 3.36 cm LVPWd: | | | 1.03 cm LVOT Area: 3.01 cm2 LVOT Diam: 1.95 cm %FS: | | | 19.29 % EF(Teich): 40.77 % ESV(Teich): 27.35 ml LVIDs: | | | 2.71 cm SV(Teich): 18.83 ml RVIDd: 3.52 cm LVEF MOD A2C: | | | 54.43 % SV MOD A2C: 45.61 ml LVEF MOD A4C: 55.16 % SV MOD | | | A4C: 40.44 ml EF Biplane: 54.62 % LVEDV MOD BP: 81.51 ml | | | LVESV MOD BP: 36.98 ml LVEDV MOD A2C: 83.79 ml LVLd A2C: | | | 7.47 cm LVEDV MOD A4C: 73.31 ml LVLd A4C: 8.12 cm LVESV MOD | | | A2C: 38.18 ml LVLs A2C: 6.90 cm LVESV MOD A4C: 32.86 ml | | | LVLs A4C: 7.64 cm LAESV(A-L): 92.39 ml LAESV Index (A-L): | | | 63.28 ml/m2 LAAs A2C: 25.31 cm2 LAESV A-L A2C: 94.47 ml LALs | | | A2C: 5.75 cm LAAs A4C: 24.21 cm2 LAESV A-L A4C: 88.38 ml | | | LALs A4C: 5.63 cm RAAs: 18.06 cm2 RAESV A-L: 54.89 ml | | | RAESV MOD: 53.35 ml RALs: 5.04 cm TAPSE: 1.72 cm AR Dec | | | Anasco: 2.10 m/s2 AR Dec Time: 2007.83 ms AR maxP.36 | | | mmHg AR PHT: 582.27 ms AR Vmax: 4.22 m/s AV maxP.21 | | | mmHg AV meanP.61 mmHg AV Vmax: 1.43 m/s AV Vmean: 1.02 | | | m/s AV VTI: 31.88 cm SANDOVAL Vmax: 2.00 cm2 SANDOVAL (VTI): 2.02 | | | cm2 AVAI (Vmax): 0.00 cm2/m2 AVAI (VTI): 0.00 cm2/m2 LVOT | | | maxP.63 mmHg LVOT meanP.14 mmHg LVSI Dopp: 44.29 | | | ml/m2 LVSV Dopp: 64.67 ml LVOT Vmax: 0.95 m/s LVOT Vmean: | | | 0.68 m/s LVOT VTI: 21.45 cm MV A Mc: 1.14 m/s MV Dec Anasco: | | | 3.05 m/s2 MV DecT: 234.57 ms MV E Mc: 0.71 m/s MV E/A | | | Ratio: 0.62 MV PHT: 68.02 ms MVA By PHT: 3.23 cm2 Septal | | | e': 0.02 m/s Septal E/e': 27.68 Lateral e': 0.02 m/s | | | Lateral E/e': 28.40 RAP: 5 mmHg RVSP: 42.05 mmHg TR maxPG: | | | 37.05 mmHg TR Vmax: 3.04 m/s RV s': 0.10 m/s | | | Executive Associate: SYLVIE Authenticated by: Celia [place] Report | | | Date/Time: 12-08-2018 8:58:41 | | + + + + + | Procedure Note | + + | Hector, Rad Conversion - 06/22/2019 1:34 PM PDT Patient Name: Latrell ELLER of | | : 1930 Performing Physician: Celia | | [place] INDICATIONS------ | | -----CHF CONCLUSIONS 1. The left ventricle cavity size is normal in size, | | mildly impaired systolic function EF 40-45%. Anteroseptal, septal and apical aneurysm | | with dyskinesis.2. The right ventricle is normal in size and function.3. The aortic | | valve is mildly calcified with mild regurgitation.4. Mild tricuspid regurgitation and | | mild pulmonary hypertension RVSP 42 mmHg.5. There is no pericardial effusion.6. Compared | | with the findings of the prior study 2015, there has been no significant change. | | FINDINGS--------ECG rhythm: Frequent ventricular premature beats.Study: A 2-dimensional | | transthoracic echocardiogram with m-mode, spectral and color flow Doppler was | | perfomed.Study: This was a technically adequate study.Left Ventricle: Overall left | | ventricular systolic function is mild-moderately impaired with, an EF between 40 - 45 | | %.Left Ventricle: The left ventricle cavity size is normal.Left Ventricle: Mild septal | | hypertrophy with septal thickness 13 - 15 mm.Left Ventricle: Anteroseptal, septal and | | apical aneurysm with dyskinesis.Right Ventricle: The right ventricle is normal in size | | and function.Left Atrium: The left atrium is mildly enlarged.Right Atrium: The right | | atrium is mildly enlarged.Aortic Valve: The aortic valve is mildly calcified.Aortic | | Valve: There is mild aortic regurgitation.Aortic Valve: There is no evidence of aortic | | stenosis.Aortic Valve: The aortic valve appears to be trileaflet.Aortic Valve: Aortic | | valve is mildly thickened.Aortic Valve: The aortic pressure half-time by doppler is | | 582ms.Mitral Valve: Normal appearing mitral valve.Mitral Valve: Mild mitral | | regurgitation is present.Tricuspid Valve: The tricuspid valve appears structurally | | normal.Tricuspid Valve: Mild tricuspid regurgitation present.Tricuspid Valve: There is | | mild pulmonary hypertension.Tricuspid Valve: The right ventricular systolic pressure | | (pulmonary artery systolic pressure), as measured by Doppler, is 42.06mmHg.Pulmonic | | Valve: Pulmonic valve appears structurally normal.Pulmonic Valve: Trace pulmonic | | regurgitation.Pericardium: There is no pericardial effusion.Pericardium: No pleural | | effusion seen.IVC/Hepatic Veins: The inferior vena cava is normal in size and collapses | | > 50 % with sniff, indicating normal central venous pressures.Aorta: The aortic root, | | ascending aorta and aortic arch are normal in size.General comments: Compared with the | | findings of the prior study, there has been no significant change. | | MEASUREMENTS Ao asc: 2.63 cmAo sinus: 2.[address] junct: 2.26 cmIVC: | | 1.99 cmLA Diam: 3.64 cmEDV(Teich): 46.19 mlIVSd: 1.43 cmLVIDd: 3.36 cmLVPWd: | | 1.03 cmLVOT Area: 3.01 in7NYAV Diam: 1.95 cm%FS: 19.29 %EF(Teich): 40.77 | | %ESV(Teich): 27.35 mlLVIDs: 2.71 cmSV(Teich): 18.83 mlRVIDd: 3.52 cmLVEF MOD | | A2C: 54.43 %SV MOD A2C: 45.61 mlLVEF MOD A4C: 55.16 %SV MOD A4C: 40.44 mlEF | | Biplane: 54.62 %LVEDV MOD BP: 81.51 mlLVESV MOD BP: 36.98 mlLVEDV MOD A2C: 83.79 | | mlLVLd A2C: 7.47 cmLVEDV MOD A4C: 73.31 mlLVLd A4C: 8.12 cmLVESV MOD A2C: 38.18 | | mlLVLs A2C: 6.90 cmLVESV MOD A4C: 32.86 mlLVLs A4C: 7.64 cmLAESV(A-L): 92.39 | | mlLAESV Index (A-L): 63.28 ml/m2LAAs A2C: 25.31 [id number] A-L A2C: 94.47 mlLALs | | A2C: 5.75 cmLAAs A4C: 24.21 in6PEJEL A-L A4C: 88.38 mlLALs A4C: 5.63 cmRAAs: | | 18.06 to2AGJSY A-L: 54.89 mlRAESV MOD: 53.35 mlRALs: 5.04 cmTAPSE: 1.72 cmAR Dec | | Anasco: 2.10 m/s2AR Oct Time: msAR maxP.36 mmHgAR PHT: 582.27 msAR | | Vmax: 4.22 m/Claudia maxP.21 mmHgAV meanP.61 mmHgAV Vmax: 1.43 m/Claudia Vmean: | | 1.02 m/Claudia VTI: 31.88 cmAVA Vmax: 2.00 cm2AVA (VTI): 2.02 uv1CUSF (Vmax): 0.00 | | cm2/m2AVAI (VTI): 0.00 cm2/m2LVOT maxP.63 mmHgLVOT meanP.14 mmHgLVSI | | Dopp: 44.29 ml/m2LVSV Dopp: 64.67 mlLVOT Vmax: 0.95 m/sLVOT Vmean: 0.68 m/sLVOT | | VTI: 21.45 cmMV A Mc: 1.14 m/sMV Dec Anasco: 3.05 m/s2MV DecT: 234.57 msMV E | | Mc: 0.71 m/sMV E/A Ratio: 0.62MV PHT: 68.02 msMVA By PHT: 3.23 rw3Mgyxik e': | | 0.02 m/sSeptal E/e': 27.68Lateral e': 0.02 m/sLateral E/e': 28.40RAP: 5 | | mmHgRVSP: 42.05 mmHgTR maxP.05 mmHgTR Vmax: 3.04 m/sRV s': 0.10 m/s | | Executive Associate: SYLVIEAuthenticated by: Celia Tidwell Date/Time: 12-08-2018 8:58:41 | | IMPRESSION: 1. The left ventricle cavity size is normal in size, mildly impaired | | systolic function EF 40-45%. Anteroseptal, septal and apical aneurysm with dyskinesis.2. | | The right ventricle is normal in size and function.3. The aortic valve is mildly | | calcified with mild regurgitation.4. Mild tricuspid regurgitation and mild pulmonary | | hypertension RVSP 42 mmHg.5. There is no pericardial effusion.6. Compared with the | | findings of the prior study 2016, there has been no significant change. | |LA Diam: 3.64 cm | |EDV(Teich): 46.19 ml | |IVSd: 1.43 cm | |LVIDd: 3.36 cm | |LVPWd: 1.03 cm | |LVOT Area: 3.01 cm2 | |LVOT Diam: 1.95 cm | |%FS: 19.29 % | |EF(Teich): 40.77 % | |ESV(Teich): 27.35 ml | |LVIDs: 2.71 cm | |SV(Teich): 18.83 ml | |RVIDd: 3.52 cm | |LVEF MOD A2C: 54.43 % | |SV MOD A2C: 45.61 ml | |LVEF MOD A4C: 55.16 % | |SV MOD A4C: 40.44 ml | |EF Biplane: 54.62 % | |LVEDV MOD BP: 81.51 ml | |LVESV MOD BP: 36.98 ml | |LVEDV MOD A2C: 83.79 ml | |LVLd A2C: 7.47 cm | |LVEDV MOD A4C: 73.31 ml | |LVLd A4C: 8.12 cm | |LVESV MOD A2C: 38.18 ml | |LVLs A2C: 6.90 cm | |LVESV MOD A4C: 32.86 ml | |LVLs A4C: 7.64 cm | |LAESV(A-L): 92.39 ml | |LAESV Index (A-L): 63.28 ml/m2 | |LAAs A2C: 25.31 cm2 | |LAESV A-L A2C: 94.47 ml | |LALs A2C: 5.75 cm | |LAAs A4C: 24.21 cm2 | |LAESV A-L A4C: 88.38 ml | |LALs A4C: 5.63 cm | |RAAs: 18.06 cm2 | |RAESV A-L: 54.89 ml | |RAESV MOD: 53.35 ml | |RALs: 5.04 cm | |TAPSE: 1.72 cm | |AR Dec Anasco: 2.10 m/s2 | |AR Dec Time: 2007.83 ms | |AR maxP.36 mmHg | |AR PHT: 582.27 ms | |AR Vmax: 4.22 m/s | |AV maxP.21 mmHg | |AV meanP.61 mmHg | |AV Vmax: 1.43 m/s | |AV Vmean: 1.02 m/s | |AV VTI: 31.88 cm | |SANDOVAL Vmax: 2.00 cm2 | |SANDOVAL (VTI): 2.02 cm2 | |AVAI (Vmax): 0.00 cm2/m2 | |AVAI (VTI): 0.00 cm2/m2 | |LVOT maxP.63 mmHg | |LVOT meanP.14 mmHg | |LVSI Dopp: 44.29 ml/m2 | |LVSV Dopp: 64.67 ml | |LVOT Vmax: 0.95 m/s | |LVOT Vmean: 0.68 m/s | |LVOT VTI: 21.45 cm | |MV A Mc: 1.14 m/s | |MV Dec Anasco: 3.05 m/s2 | |MV DecT: 234.57 ms | |MV E Mc: 0.71 m/s | |MV E/A Ratio: 0.62 | |MV PHT: 68.02 ms | |MVA By PHT: 3.23 cm2 | |Septal e': 0.02 m/s | |Septal E/e': 27.68 | |Lateral e': 0.02 m/s | |Lateral E/e': 28.40 | |RAP: 5 mmHg | |RVSP: 42.05 mmHg | |TR maxP.05 mmHg | |TR Vmax: 3.04 m/s | |RV s': 0.10 m/s | | | |Executive Associate: DBS | |Authenticated by: Celia Hoffman | |Report Date/Time: 12-08-2018 8:58:41 | | | |IMPRESSION: | |1. The left ventricle cavity size is normal in size, mildly impaired systolic function EF 4 0-45%. Anteroseptal, septal and apical aneurysm with dyskinesis. | |2. The right ventricle is normal in size and function. | |3. The aortic valve is mildly calcified with mild regurgitation. | |4. Mild tricuspid regurgitation and mild pulmonary hypertension RVSP 42 mmHg. | |5. There is no pericardial effusion. | |6. Compared with the findings of the prior study 2015, there has been no significant change . | + + documented in this encounter Visit Diagnoses Not on filedocumented in this encounter"
--- OUTSIDE RECORDS SUMMARY | ~2020-05-14 | XMS | Encounter Summary ---
Demographics + + + | Address | [address] | | | [place] [address] | + + + | Home Phone | | + + + | Preferred Language | Unknown | + + + | Marital Status | | + + + | Religion Affiliation | Unknown | + + + [...] Team Providers + +------+ + | Care Belt Sewer Name | Role | Phone | + +------+ + | Anthony Atkins DO | PCP | | + +------+ + Encounter Details +--------+ + + + + | Date | Type | Department | Care Team | Description | +--------+ + + + + | 01/15/ | Orders Only | [facility] | Arnaldo, | | | 2019 | | NEPHROLOGY [place] | [facility] | | | | | [address] | Theology Teacher | | | | | [address] | | | | | | [place] | | | | | | [address] | | | | | | [phone] | | | +--------+ + + + [...] + +--------+ + + + | VITAMIN D, | Routin | 12/14/2019 | | Results for this | | 25-HYDROXY, LC/MS/MS | e | | | procedure are in the | | | | | | results section. | + +--------+ + + + | CBC NO DIFFERENTIAL | Routin | 12/14/2019 | | Results for this | | | e | | | procedure are in the | | | | | | results section. | + +--------+ + + + | MICROALBUMIN/CREATIN | Routin | 12/14/2019 | | Results for this | | INE RATIO, URINE | e | | | procedure are in the | | TEST | | | | results section. | + +--------+ + + + | COMPREHENSIVE | Routin | 12/14/2019 | | Results for this | | METABOLIC PANEL | e | | | procedure are in the | | | | | | results section. | + +--------+ + + + documented in this encounter Results CBC with Manual Differential (12/14/2019) + + + + + + | Component | Value | Ref Range | Performed | Pathologist | | | | | At | Signature | + + + + + + | WBC | 0.48 | | | | + + + + + + | Red Blood | 4.06 | M/uL | | | | Cells | | | | | + + + + + + | Hemoglobin | 10.39 | | | | + + + + + + | Hematocrit, | 31.8 | % | | | | POC | | | | | + + + + + + | MCV | 78.3 (A) | 80.0 - 98.0 fL | | | + + + + + + | MCH | 25.6 (A) | 26.0 - 33.0 pg | | | + + + + + + | MCHC | 32.7 | 30.0 - 36.0 | | | | | | g/dL | | | + + + + + + | Platelet | 274 | | | | | Count | | | | | | Plasma | | | | | + + + + + + | RDW | 15.70 | | | | + + + + + + | BAL | 68 | % | | | | Neutrophils | | | | | | % | | | | | + + + + + + | % | 20.60 | | | | | Lymphocytes | | | | | + + + + + + | Monocyte % | 6.50 | | | | + + + + + + | BAL | 5 | % | | | | Eosinophils | | | | | | % | | | | | + + + + + + | % | 0 | % | | | | Basophils, | | | | | | Body Fluid | | | | | + + + + + + + + | Specimen | + + | Blood | + + Vitamin D, 25-Hydroxy, LC/MS/MS (12/14/2019) + +-------+ + + + | Component | Value | Ref Range | Performed | Pathologist | | | | | At | Signature | + +-------+ + + + | Vit D, | 9.6 | | | | | 25-Hydroxy | | | | | + +-------+ + + + + + | Specimen | + + | Blood | + + Comprehensive Metabolic Panel (12/14/2019) + +-------+ + + + | Component | Value | Ref Range | Performed | Pathologist | | | | | At | Signature | + +-------+ + + + | Na | 141 | mmol/L | | | + +-------+ + + + | K | 5.1 | 3.2 - 5.7 | | | | | | mmol/L | | | + +-------+ + + + | Cl | 110 | mmol/L | | | + +-------+ + + + | CO2 | 18 | mmol/L | | | + +-------+ + + + | Anion Gap | 18 | mmol/L | | | + +-------+ + + + | Glucose | 98 | mg/dL | | | + +-------+ + + + | BUN | 29 | mg/dL | | | + +-------+ + + + | Creatinine | 2.20 | mg/dL | | | + +-------+ + + + | Estimated | 22.0 | mL/min/1.73m2 | | | | GFR | | | | | + +-------+ + + + | Calcium | 7.8 | | | | + +-------+ + + + | BILIRUBIN, | 0.1 | | | | | TOTAL | | | | | + +-------+ + + + | Albumin | 3.8 | g/dL | | | + +-------+ + + + | AST | 13 | U/L | | | + +-------+ + + + | ALT | 7 | U/L | | | + +-------+ + + + | ALP, | 166 | | | | | External | | | | | + +-------+ + + + + + | Specimen | + + | Blood | + + Microalbumin/Creatinine Ratio, Urine (12/14/2019) + +-------+ + + + | Component | Value | Ref Range | Performed | Pathologist | | | | | At | Signature | + +-------+ + + + | Microalb | 804.2 | | | | | Creat Ratio | | | | | + +-------+ + + + + + | Specimen | + + | Urine | + + documented in this encounter Visit Diagnoses Not on filedocumented in this encounter"
--- OUTSIDE RECORDS SUMMARY | ~2020-05-14 | XMS | Encounter Summary ---
Demographics + + + | Address | [address] | | | [place] [address] | + + + | Home Phone | | + + + | Preferred Language | Unknown | + + + | Marital Status | | + + + | Voodoo Affiliation | Unknown | + + + | Race | Unknown | + + + | Ethnic Group | Unknown | + + + Author + + + | Author | [facility] | | | and [place] | + + + | Organization | [facility] | | | [...] | | + + +---------+ + | Helga[place] | ECON | Unknown | | + + +---------+ + Care Team Providers + +------+ + | Care Drawer Fitter Name | Role | Phone | + +------+ + PCP | Unavailable | + +------+ + Encounter Details +--------+ + + + + | Date | Type | Department | Care Team | Description | +--------+ + + + + | 05/01/ | Hospital | [facility] | Gabino Sky DO | Congestive heart | | 2013 - | Encounter | [facility] | [address] | failure ([facility]); | | | | CARE FLOOR [address] | [place] [address] | Hypoxia; Acidosis, | | 05/07/ | | [address] | [phone] | metabolic; | | 2013 | | [place], [place] | | Hyperphosphatemia; | | | | [address] | | Hyponatremia; | | | | [phone] | | Vitamin D | | | | | | deficiency; Anemia; | | | | | | Elevated troponin; | | | | | | Acute renal failure | | | | | | ([facility]); Acute | | | | | | systolic CHF | | | | | | (congestive heart | | | | | | failure) ([facility]); LEANNA | | | | | | (acute kidney | | | | | | injury) ([facility]); | | | | | | Anemia, iron | | | | | | deficiency; DM2 | | | | | | (diabetes mellitus, | | | | | | type 2) ([facility]); | | | | | | Hyperkalemia | +--------+ + + + + Social [...] + + documented as of this encounter Discharge Summaries Aylin White MD - 05/07/2014 2:42 PM PDT Discharge Summaries by Aylin White MD at 05/07/141441 Author: Aylin White MD Service: Hospitalist Author Type: Physician Filed: 05/07/14 1816 Date of Service: 05/07/141441 Status: Signed Prop Maker: Aylin White MD (Physician) Related Notes: Original Note by Aylin White MD (Physician) filed at 05/07/14 144 HOSPITALIST DISCHARGE SUMMARY Patient ID: Alexsandra Hawkins [id number] 83 y.o. 1930 Admit date: 05/01/2014 Discharge date and time: 05/07/14 Admitting Physician: Gabino Sky, DO Discharge Physician: AYLIN WHITE MD Primary Discharge Diagnoses: Acute Systolic CHF Other- Colonic AVM Hyperkalemia [276.7] Hyperphosphatemia [275.3] Hyponatremia [276.1] Anemia, iron deficiency [280.9] Anemia [285.9] Acute renal failure [584.9] Vitamin D deficiency [268.9] Acidosis, metabolic [276.2] Hypoxia [799.02] Congestive heart failure [428.0] Elevated troponin [790.6] LEANNA (acute kidney injury) [584.9] DM2 (diabetes mellitus, type 2) [250.00] Acute systolic CHF (congestive heart failure) [428.21, 428.0] Discharged Condition: Stable for D/c as STATED BELOW. HPI and Hospital Course: An 83-year-old female who follows up with [facility]. Does not take any medications. She was supposed to take metformin but she was not taking any medications. [place] she started feeling short of breath. This progressed ove r the next 3 to 4 days and ultimately she could not even breathe while lying on the bed. She was brought to the emergency room. She was downplaying her symptoms. She was noted to have elevated cardiac enzymes. She was needing oxygen. There were signs of congestive heart failu re. The patient was started on IV Lasix. Echocardiogram was ordered. The patient was also fo und to have possible acute kidney injury, anemia, and uncontrolled diabetes mellitus. As far as the CHF is concerned, an echocardiogram was done which confirmed acute systolic congesti ve heart failure with ejection fraction around 30%. Dr. Terrell was consulted who saw the pat ient and recommended medical management. Stress test was done, and stress test did show a la rge infarct involving the anteroseptal and distal inferior wall. Dr. Terrell thinks that the CT was old. The patient has been started on aspirin, statin, and beta brittnee. She will need to follow up with Dr. Terrell. I will also discharged her on lisinopril and Aldactone becaus e of her CHF. For her kidney failure, Dr. Patel was consulted from nephrology who has been following. The patient's kidney function has improved. She was initially on a Lasix drip. She is not short of breath any more. Lungs are clear and she is not needing any oxygen now. She will be disc harged on 20 mg p.o. of Lasix. I discussed with Dr. Patel today. The patient would like to f ollow with Dr. Carbajal, so I will give directions to Dr. Carbajal's office. Dr. Patel is okay wit h lisinopril and Aldactone being started, which should help with potassium balance as well. For her diabetes mellitus, she was kept on insulin while in the hospital. Her hemoglobin A1 c was 7.5, so it will be okay to start her on oral hypoglycemics. She has been started on gl ipizide. I will give her a prescription for a glucometer, test strips, and lancets. She will need to follow up with her primary care physician regarding this. As far as anemia is concerned, she was given blood transfusion. She was found to have iron- deficiency anemia. Occult blood test was positive. Dr. Main was consulted from gastroentero logy who did upper and lower GI endoscopy. 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 As per Dr. Main, the patient can be discharged but will need to follow with GI Clinic in 2 weeks. He also recommended starting aspirin 1 week later. The patient has agreed to take the medications now. Discharge Vitals: Filed Vitals: 05/07/14 0340 05/07/14 1021 05/07/14 1219 05/07/14 1404 BP: 110/53 116/58 117/57 96/52 Pulse: 68 90 77 79 Temp: 98.4 F (36.9 C) 98.2 F (36.8 C) 98 F (36.7 C) 98.6 F (37 C) TempSrc: Oral Oral Oral Resp: 16 18 18 16 Height: Weight: 56 kg (123 lb 7.3 oz) SpO2: 99% 100% 97% 94% Discharge Exam: General: Comfortable HEENT: No thrush. Neck: No JVD, Trachea midline. Psych: Alert and oriented x 3. Calm, cooperative. Cardiovascular: Regular rate and rhythm, no murmurs, no palpable thrills. Normal PMI. Respiratory: Decreased breath sounds at bases. no wheezing or crackles, breathing non labor ed. Chest expansion equal on both sides. No use of accessory muscles. Gastrointestinal: Soft, non-tender, non-distended, positive bowel sounds. No HSM. Musculoskeletal: No edema in bilateral lower extremities. No joint swelling. Skin: foot diabetes skin lesions? Not infected. Neurological: Higher functions grossly normal. Non focal. Motor and sensory grossly intact. Normal co-ordination. LABS: Lab 05/07/14 0450 05/06/14 0430 05/05/14 0415 WBC 8.5 9.9 9.4 HGB 11.1* 10.9* 11.1* HCT 33.4* 33.2* 33.3* PLT 245 241 246 NEUTOPHILPCT 63.4 64.8 70.6 MONOPCT 8.5 8.3 8.7 Results Procedure Component Value Units Date/Time Fecal occult blood (in house) [[id number]] (Abnormal) Collected:05/05/14 1302 Specimen Information:Stool / Stool Updated:05/05/14 1334 Fecal Occult Blood POSITIVE (A) Xr Chest 2 View 05/01/2014 ALEXSANDRA HAWKINS 1930 83 years Female XR CHEST 2 VIEW FRONTAL AND LATERAL 05/01/2014 11:56 AM INDICATION: Shortness of breath COMPARISON: None. TECHNIQUE: Two view [place], [place] and lateral views FINDINGS: There is moderate enlargement of the cardiac silhouette. There is no widening or shift of the mediastinum. There is no pneumothorax. The costophreni c angle is blunted bilaterally suggestive of some pleural fluid. Moderate degenerative disc disease and osteopenia is present with several chronic appearing wedge deformities throughou t the thoracic and lumbar spine. The vasculature is mildly distended with slightly increased hazy reticular markings throughout the lung. 05/01/2014 1. Imaging findings concerning for pulmonary edema. Nm Myocardial Perfusion Spect (stress And Rest) 05/05/2014 ALEXSANDRA GAYTAN MYOCARDIAL PERFUSION SPECT - STRESS AND REST HISTORY: 83 year s. Female. Shortness of breath and elevated troponins. TECHNIQUE: A same day protocol was u sed. For the resting portion of the study the patient was injected intravenously with 10 mC i technetium 99m Myoview. Gated SPECT imaging was performed in the supine position. The pa tient was then pharmacologically stressed using a regadenoson protocol. The patient receive d 0.4 mg of regadenoson intravenously. The patient was intravenously administered 40 mCi te chnetium 99m Myoview. Gated SPECT images were acquired in the prone and supine positions. COMPARISON: None. FINDINGS: Large area of decreased perfusion involving the mid and distal anterior wall, mid and distal septal wall, and distal aspect of the inferior wall on both [place]arez pine stress and rest images that is mildly greater on supine stress and rest images. Finding s are felt to represent infarct with mild pretty-infarct ischemia. Akinesia within the mid and distal anterior and septal gaytan with mild paradoxical wall motion. STRESS: End-diastolic volume: 138 mL End-systolic volume: 109 mL Ejection fraction: 21% REST: End-diastolic volume : 142 mL End-systolic volume: 122 mL Ejection fraction: 14% 05/05/2014 1. Large infarct involving anterior, septal, and distal inferior wall with mild pretty-infarct ischemia. 2. Left ventricular ejection fraction is calculated at 21%. 3. Dila yasmin left ventricle. Ultrasound Kidneys And Bladder 05/02/2014 ALEXSANDRA HAWKINS KIDNEYS AND BLADDER HISTORY: 83 years. Female. Chronic kidney disease. TECHNIQUE: Sonographic evaluation of the kidneys and bladder was performed. COMP ARISON: None. FINDINGS: The right kidney measures 9.4 x 4.8 x 4.5 cm. The left kidney measu res 10.2 x 5.4 x 4.8 cm. The kidneys have a normal cortical echotexture without evidence of hydronephrosis. The bladder is completely empty. The patient voided prior to imaging. 05/02/2014 1. Unremarkable renal ultrasound. Echo Cardiac Adult Complete 05/01/2014 Patient Name: ALEXSANDRA HAWKINS Date of : 1930 Performing Physician: Christiano Guzman MD INDICATIONS CHF CONCLUSIONS 1. Overall left ventricula r systolic function is moderately impaired with, an EF between 30 - 40 %. 2. The left ventri americo is markedly dilated. 3. mid anteroseptal - akinetic; 4. apex - akinetic; 5. The left a trium is mildly dilated. 6. There is zctv-ic-fsmbftby aortic regurgitation. 7. Qgkt-eq-gddag ate mitral regurgitation is present. 8. There is moderate pulmonary hypertension. 9. The rig ht ventricular systolic pressure (pulmonary artery systolic pressure), as measured by Dopple r, is 62.61mmHg. 10. There is a small pericardial effusion is located near the right ventric le. 11. There is no evidence of cardiac tamponade. FINDINGS -------- ECG rhythm: Sinus rhyt hm with extra systolic beats. Study: A 2-dimensional transthoracic echocardiogram with m-mod e, spectral and color flow Doppler was perfomed. Study: This was a technically adequate tha dy. Left Ventricle: Overall left ventricular systolic function is moderately impaired with, an EF between 30 - 40 %. Left Ventricle: The left ventricle is markedly dilated. Left Vent ricle: Left ventricular wall thickness is normal. Left Ventricle: mid anteroseptal - akinet ic; Left Ventricle: apex - akinetic; Right Ventricle: The right ventricle is normal in si ze. Left Atrium: The left atrium is mildly dilated. Right Atrium: The right atrial size is n ormal. Aortic Valve: The aortic valve was not well visualized. Aortic Valve: The aortic louis ve is mildly calcified. Aortic Valve: There is ootz-pd-iqdbvonl aortic regurgitation. Aort ic Valve: There is no evidence of significant aortic stenosis. Mitral Valve: The mitral louis ve is normal. Mitral Valve: Ksml-uy-nzjfwjyj mitral regurgitation is present. Mitral Valve : Moderate mitral annular calcification present. Mitral Valve: Mild thickening of the anter ior mitral valve leaflet. Mitral Valve: There is mild thickening of the posterior mitral va lve leaflet. Tricuspid Valve: The tricuspid valve appears structurally normal. Tricuspid Va lve: Rlnh-mo-ttetsjds tricuspid regurgitation present. Tricuspid Valve: There is moderate p ulmonary hypertension. Tricuspid Valve: The right ventricular systolic pressure (pulmonary artery systolic pressure), as measured by Doppler, is 62.61mmHg. Pulmonic Valve: The pulmoni c valve was not well visualized. Pericardium: There is a small pericardial effusion is locat ed near the right ventricle. Pericardium: There is no evidence of cardiac tamponade. IVC/He patic Veins: The IVC is normal size (1.5-2.5cm) and collapses <50% with sniff, consistent wi th central venous pressures of 10-15mmHg. MEASUREMENTS IVC: 2.09 cm LA Marcia r: 5.82 cm LVOT Diam: 1.79 cm RA Major: 4.51 cm RVIDd: 3.11 cm LVEF MOD A4C: 23.06 % SV MOD A4C: 24.01 ml LVEDV MOD A4C: 104.12 ml LVLd A4C: 8.32 cm LVESV MOD A4C: 80 .11 ml LVLs A4C: 7.57 cm LAEDV(A-L): 71.18 ml LAEDV Index (A-L): 48.42 ml/m2 LAAd A2C: 18.54 cm2 LAEDV A-L A2C: 58.33 ml LAEDV MOD A2C: 55.18 ml LALd A2C: 5.00 cm LAAd A4 C: 22.63 cm2 LAEDV A-L A4C: 72.64 ml LAEDV MOD A4C: 66.83 ml LALd A4C: 5.98 cm MR Fl ow: 105.73 ml/s MR Rad: 0.66 cm MR Als.Mc: 0.37 m/s Ao Diam: 3.13 cm AV Cusp: 1.5 1 cm LA Diam: 3.87 cm LA/Ao: 1.23 %FS: 25.64 % EDV(Teich): 231.10 ml EF(Teich): 4 9.31 % ESV(Teich): 117.12 ml IVSd: 0.68 cm IVSs: 0.92 cm LVIDd: 6.69 cm LVIDs: 4.9 7 cm LVPWd: 0.92 cm LVPWs: 1.37 cm SV(Teich): 113.97 ml D-E Excursion: 1.44 cm E-F S vinny: 0.05 m/s EPSS: 1.21 cm AR Dec Washita: 1.60 m/s2 AR Dec Time: 1757.97 ms AR maxP .96 mmHg AR PHT: 509.81 ms AR Vmax: 2.82 m/s HR: 66.94 BPM AR maxP.20 mm Hg AR meanP.96 mmHg AR Vmax: 2.55 m/s AR Vmean: 2.15 m/s AR VTI: 129.70 cm ARen d P.29 mmHg ARend Vmax: 2.11 m/s HR: 96.87 BPM AV maxP.97 mmHg AV meanP.13 mmHg AV Vmax: 1.22 m/s AV Vmean: 0.83 m/s AV VTI: 23.32 cm SANDOVAL Vmax: 1.90 cm2 SANDOVAL (VTI): 1.87 cm2 LVCI Dopp: 2.90 l/minm2 LVCO Dopp: 4.27 l/min HR: 97.96 BPM LVOT maxP.38 mmHg LVOT meanP.00 mmHg LVSI Dopp: 29.68 ml/m2 LVSV Dopp: 43.64 ml LVOT Vmax: 0.92 m/s LVOT Vmean: 0.67 m/s LVOT VTI: 17.27 cm MCO: 321.79 ms MR maxP.39 mmHg MR meanP.15 mmHg MR Vmax: 3.29 m/s MR Vmean: 2.56 m/s MR VTI: 73. 68 cm MR maxP.16 mmHg MR Vmax: 3.94 m/s MV A Mc: 1.23 m/s MV DecT: 147.26 ms M V E Mc: 0.73 m/s MV E/A Ratio: 0.59 MV PHT: 43.08 ms MVA By PHT: 5.10 cm2 MV A Dur : 89.96 ms Septal e': 0.03 m/s Septal E/e': 21.69 Lateral e': 0.03 m/s Lateral E/e' : 19.47 MR ERO: 0.25 cm2 MR RV: 28.74 ml MR Vmax: 4.18 m/s MR VTI: 113.69 cm P Ve in A: 0.35 m/s P Vein A Dur: 134.94 ms P Vein D: 0.34 m/s P Vein S/D Ratio: 1.82 P Vein S: 0.62 m/s HR: 99.65 BPM PV maxP.89 mmHg PV meanP.75 mmHg PV Vmax: 0 .85 m/s PV Vmean: 0.62 m/s PV VTI: 14.43 cm RAP: 15 mmHg RVSP: 62.60 mmHg TR maxP.60 mmHg TR Vmax: 3.44 m/s TV A Mc: 0.93 m/s TV Dec Washita: 4.08 m/s2 TV Dec Time: 135.12 ms TV E Mc: 0.55 m/s TV E/A Ratio: 0.58 Cardiac Exercise Physiologist: LOLY Authenticated by: Christiano Guzman MD Report Date/Time: 05-01-2014 16:13:14 05/01/2014 1. Overall left ventricular systolic function is moderately impaired with, an EF between 30 - 40 %. 2. The left ventricle is markedly dilated. 3. mid anteroseptal - akinetic ; 4. apex - akinetic; 5. The left atrium is mildly dilated. 6. There is ojfp-kp-kohvbxnv a ortic regurgitation. 7. Borz-zq-rmeopuyp mitral regurgitation is present. 8. There is modera te pulmonary hypertension. 9. The right ventricular systolic pressure (pulmonary artery syst olic pressure), as measured by Doppler, is 62.61mmHg. 10. There is a small pericardial effus ion is located near the right ventricle. 11. There is no evidence of cardiac tamponade. Nm Cardiovascular Stress Treadmill 05/05/2014 This procedure was resulted in [place] (the cardiology system). Please see the Medi a tab in Chart Review to see the result for this procedure. End Colonoscopy Imaging 05/07/2014 This is a non-reportable procedure without a radiologist report and is used for image storage only. Please review the GI encounter notes for details on the procedure. End Esophogogastroduodenoscopy 05/07/2014 This is a non-reportable procedure without a radiologist report and is used for image storage only. Please review the GI encounter notes for details on the procedure. Disposition: Home Patient Instructions: Medication List As of 05/07/2014 2:43 PM START taking these medications aspirin EC 81 MG EC tablet QTY: 30 tablet Refills: 0 Take 1 tablet by mouth daily with breakfast. Start taking on: 05/14/2014 carvedilol 3.125 MG tablet QTY: 60 tablet Refills: 0 Commonly known as: COREG Take 1 tablet by mouth 2 (two) times daily with meals. ferrous sulfate (65 FE) 324 (65 FE) MG EC tablet QTY: 90 tablet Refills: 0 Take 1 tablet by mouth 3 (three) times daily with meals. furosemide 20 MG tablet QTY: 30 tablet Refills: 0 Commonly known as: LASIX Take 1 tablet by mouth daily. glipiZIDE 5 MG tablet QTY: 60 tablet Refills: 0 Commonly known as: GLUCOTROL Take 1 tablet by mouth 2 (two) times daily before meals. lisinopril 5 MG tablet QTY: 30 tablet Refills: 0 Commonly known as: ZESTRIL Take 1 tablet by mouth daily. simvastatin 20 MG tablet QTY: 30 tablet Refills: 0 Commonly known as: ZOCOR Take 1 tablet by mouth nightly. spironolactone 25 MG tablet QTY: 15 tablet Refills: 0 Commonly known as: ALDACTONE Take 0.5 tablets by mouth daily. 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 You may get these medications from any pharmacy. aspirin EC 81 MG EC tablet carvedilol 3.125 MG tablet ferrous sulfate (65 FE) 324 (65 FE) MG EC tablet furosemide 20 MG tablet glipiZIDE 5 MG tablet lisinopril 5 MG tablet simvastatin 20 MG tablet spironolactone 25 MG tablet Activity: activity as tolerated Diet: diabetic Follow up: Lois Moeller NP [phone] Schedule an appointment as soon as possible for a visit in 2 days Ritesh Gibson MD [address] [facility] [address] [facility] [address] In 2 weeks Leandro Terrell MD [address] [facility] [address] Schedule an appointment as soon as possible for a visit in 3 weeks Alex Carbajal MD [address] [facility] [address] Schedule an appointment as soon as possible for a visit in 2 weeks Discharge took approximately 50 minutes, to include final examination,discussion of admissi on, and preparation of prescriptions, instructions for ongoing care, follow up and dictation of summary. Signed: Aylin White 05/07/2014 2:43 PM documente d in this encounter Progress Notes Conversion Transaction, Provider Unknown - 05/07/2014 1:06 PM PDTFormatting of this note m ight be different from the original. Progress Notes by Sera Rodriguez RN at 05/07/14 1306 Author: Sera Rodriguez RN Service: (none) Author Type: Registered Nurse Filed: 05/07/14 1307 Date of Service: 05/07/14 1306 Status: Signed Prop Maker: Sera Rodriguez RN (Registered Nurse) Pt off floor for procedure at 1:07 PM Sera Rodriguez Hortensia Avery MD - 05/07/2014 9:21 AM PDTFormatting of this note might be different from the o riginal. Progress Notes by Hortensia Patel MD at 05/07/14920 Author: Hortensia Patel MD Service: Nephrology Author Type: Physician Filed: 05/07/14 2226 Date of Service: 05/07/14920 Status: Signed Prop Maker: Hortensia Patel MD (Physician) [facility] Service: NEPHROLOGY Progress Note Alexsandra Hawkins 83 y.o. [id number] female [facility] Day: LOS: 6 days SUBJECTIVE Patient seen and examined. ADMITTED WITH Dyspnea Alexsandra Hawkins is a 83 y.o. female followed for renal insufficiency in setting of decompen sated CHF (systolic). Interval history: Alexsandra Hawkins feels 'OK' today. No fever, chills sweats. No nausea, vomiting or diarrhea. + shortness or breath, but no chest pain, cough. No dysuria, urgency, frequency, gross hematuria, urinary hesitancy. ROS: As in History of Present Illness. 7 area ROS was done and was otherwise negative. 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 Occult blood test was positive. Dr. Main was consulted from gastroenterology who did upper and lower GI endoscopy. 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 Family History Problem Relation Age of Onset Heart disease Neg Hx Diabetes Daughter Scheduled Medications aspirin 325 mg Oral Daily with breakfast carvedilol 3.125 mg Oral BID WC cholecalciferol 1,000 Units Oral Daily ergocalciferol 50,000 Units Oral Weekly ferrous sulfate (65 FE) 65 mg of iron Oral TID WC furosemide 20 mg Oral Daily insulin aspart 0-3 Units Subcutaneous Nightly insulin aspart 0-6 Units Subcutaneous TID AC insulin detemir 10 Units Subcutaneous Nightly [COMPLETED] polyethylene glycol 4,000 mL Oral Once senna-docusate 1 tablet Oral Nightly sevelamer 800 mg Oral TID WC simvastatin 20 mg Oral Nightly sodium bicarbonate 648 mg Oral TID sodium chloride 10 mL Intravenous Q8H [DISCONTINUED] metoprolol 25 mg Oral BID Continuous Infusions dextrose PRN Medications acetaminophen, acetaminophen, dextrose, dextrose, dextrose, glucagon, glucagon, ondansetron , ondansetron, polyethylene glycol, zolpidem, [DISCONTINUED] heparin (porcine), [DISCONTINUE D] heparin (porcine) Allergy: No Known Allergies OBJECTIVE Vital Signs: BP 110/53 | Pulse 68 | Temp 98.4 F (36.9 C) (Oral) | Resp 16 | Ht 1.499 m (4' 11") | Wt 56 kg (123 lb 7.3 oz) | BMI 24.92 kg/m2 | SpO2 99% | ? No I&O Detailed Table: I/O last 3 completed shifts: In: 1183 [P.O.:1183] Out: 1600 [Urine:1600] Weight change: 0.4 kg (14.1 oz) Hemodynamics Last 24hrs: Examination: APPEARANCE: better. VITALS: Reviewed as listed. HEENT: EOMI. Non-icteric sclera.+ JVD LYMPHATIC: No palpable lymphadenopathy. LUNGS: Basal occ rales. HEART: S1 soft. No S3 .No murmur. ABDOMEN: Soft, no tenderness. Bowel sounds present. No organomegaly or bruits. EXTREMITIES: No LE edema. No cyanosis or clubbing. SKIN: Warm to touch. Circular hyperpigmented lesions on both feet. NEUROLOGIC: No gross focal motor deficit. PSYCH: Alert and oriented x 3, mood and affect ok, BACK: No CVA tenderness. No sacral edema. LABS: IRON: Lab Results Component Value Date IRON 65 05/02/2014 Lab Results Component Value Date FERRITIN 7 05/02/2014 LABIRON 16 05/02/2014 CBC: Lab Results Component Value Date WBC 8.5 05/07/2014 RBC 4.34 05/07/2014 HGB 11.1* 05/07/2014 HCT 33.4* 05/07/2014 MCV 76.8* 05/07/2014 MCH 25.5* 05/07/2014 MCHC 33.2 05/07/2014 RDW 45.9 05/07/2014 PLT 245 05/07/2014 MPV 8.8 05/07/2014 DIFFTYPE AUTOMATED 05/07/2014 CMP: Lab Results Component Value Date NA 137 05/07/2014 K 4.2 05/07/2014 CL 105 05/07/2014 CO2 26 05/07/2014 ANIONGAP 10 05/07/2014 GLUF 98 05/07/2014 BUN 44* 05/07/2014 CREATININE 1.68* 05/07/2014 BCR 26 05/07/2014 CA 8.5 05/07/2014 CA 7.7* 05/02/2014 PROT 6.5 05/07/2014 ALB 3.5 05/07/2014 GLOB 3.0 05/07/2014 BILITOT 0.4 05/07/2014 ALP 82 05/07/2014 AST 10 05/07/2014 ALT 7* 05/07/2014 EGFR 31* 05/07/2014 Magnesium: Lab Results Component Value Date MG 2.3 05/07/2014 Phosphorus: Lab Results Component Value Date PHOS 3.5 05/07/2014 PT/INR: Lab Results Component Value Date INR 1.0 05/01/2014 Troponin: Lab Results Component Value Date TROPONINI 1.83* 05/02/2014 Lab Results Component Value Date PTHINTACT 93* 05/02/2014 [id number] <12* 05/02/2014 Lab Results Component Value Date [id number] 05/02/2014 Lab Results Component Value Date URICACID 8.1* 05/02/2014 Lab Results Component Value Date HGBA1C 7.5* 05/02/2014 IMAGING Xr Chest 2 View 05/01/2014 ALEXSANDRA HAWKINS 1930 83 years Female XR CHEST 2 VIEW FRONTAL AND LATERAL 05/01/2014 11:56 AM INDICATION: Shortness of breath COMPARISON: None. TECHNIQUE: Two view [place], [place] and lateral views FINDINGS: There is moderate enlargement of the cardiac silhouette. There is no widening or shift of the mediastinum. There is no pneumothorax. The costophreni c angle is blunted bilaterally suggestive of some pleural fluid. Moderate degenerative disc disease and osteopenia is present with several chronic appearing wedge deformities throughou t the thoracic and lumbar spine. The vasculature is mildly distended with slightly increased hazy reticular markings throughout the lung. 05/01/2014 1. Imaging findings concerning for pulmonary edema. Nm Myocardial Perfusion Spect (stress And Rest) 05/05/2014 ALEXSANDRA HAWKINS NM MYOCARDIAL PERFUSION SPECT - STRESS AND REST HISTORY: 83 year s. Female. Shortness of breath and elevated troponins. TECHNIQUE: A same day protocol was u sed. For the resting portion of the study the patient was injected intravenously with 10 mC i technetium 99m Myoview. Gated SPECT imaging was performed in the supine position. The pa tient was then pharmacologically stressed using a regadenoson protocol. The patient receive d 0.4 mg of regadenoson intravenously. The patient was intravenously administered 40 mCi te chnetium 99m Myoview. Gated SPECT images were acquired in the prone and supine positions. COMPARISON: None. FINDINGS: Large area of decreased perfusion involving the mid and distal anterior wall, mid and distal septal wall, and distal aspect of the inferior wall on both [place] stress and rest images that is mildly greater on supine stress and rest images. Finding s are felt to represent infarct with mild pretty-infarct ischemia. Akinesia within the mid and distal anterior and septal gaytan with mild paradoxical wall motion. STRESS: End-diastolic volume: 138 mL End-systolic volume: 109 mL Ejection fraction: 21% REST: End-diastolic volume : 142 mL End-systolic volume: 122 mL Ejection fraction: 14% 05/05/2014 1. Large infarct involving anterior, septal, and distal inferior wall with mild pretty-infarct ischemia. 2. Left ventricular ejection fraction is calculated at 21%. 3. Dila yasmin left ventricle. Ultrasound Kidneys And Bladder 05/02/2014 ALEXSANDRA HAWKINS KIDNEYS AND BLADDER HISTORY: 83 years. Female. Chronic kidney disease. TECHNIQUE: Sonographic evaluation of the kidneys and bladder was performed. COMP JAMAL: None. FINDINGS: The right kidney measures 9.4 x 4.8 x 4.5 cm. The left kidney measu res 10.2 x 5.4 x 4.8 cm. The kidneys have a normal cortical echotexture without evidence of hydronephrosis. The bladder is completely empty. The patient voided prior to imaging. 05/02/2014 1. Unremarkable renal ultrasound. Echo Cardiac Adult Complete 05/01/2014 Patient Name: ALEXSANDRA HAWKINS Date of : 1930 Performing Physician: Christiano Guzman MD INDICATIONS CHF CONCLUSIONS 1. Overall left ventricula r systolic function is moderately impaired with, an EF between 30 - 40 %. 2. The left ventri americo is markedly dilated. 3. mid anteroseptal - akinetic; 4. apex - akinetic; 5. The left a trium is mildly dilated. 6. There is drbg-ny-ddhmnbwp aortic regurgitation. 7. Wvpz-ol-lsxzn ate mitral regurgitation is present. 8. There is moderate pulmonary hypertension. 9. The rig ht ventricular systolic pressure (pulmonary artery systolic pressure), as measured by Dopple r, is 62.61mmHg. 10. There is a small pericardial effusion is located near the right ventric le. 11. There is no evidence of cardiac tamponade. FINDINGS -------- ECG rhythm: Sinus rhyt hm with extra systolic beats. Study: A 2-dimensional transthoracic echocardiogram with m-mod e, spectral and color flow Doppler was perfomed. Study: This was a technically adequate tha dy. Left Ventricle: Overall left ventricular systolic function is moderately impaired with, an EF between 30 - 40 %. Left Ventricle: The left ventricle is markedly dilated. Left Vent ricle: Left ventricular wall thickness is normal. Left Ventricle: mid anteroseptal - akinet ic; Left Ventricle: apex - akinetic; Right Ventricle: The right ventricle is normal in si ze. Left Atrium: The left atrium is mildly dilated. Right Atrium: The right atrial size is n ormal. Aortic Valve: The aortic valve was not well visualized. Aortic Valve: The aortic louis ve is mildly calcified. Aortic Valve: There is wmvp-yk-eoqqkrvx aortic regurgitation. Aort ic Valve: There is no evidence of significant aortic stenosis. Mitral Valve: The mitral louis ve is normal. Mitral Valve: Qwup-nd-eplyquha mitral regurgitation is present. Mitral Valve : Moderate mitral annular calcification present. Mitral Valve: Mild thickening of the anter ior mitral valve leaflet. Mitral Valve: There is mild thickening of the posterior mitral va lve leaflet. Tricuspid Valve: The tricuspid valve appears structurally normal. Tricuspid Va lve: Oshs-dm-gwnebptx tricuspid regurgitation present. Tricuspid Valve: There is moderate p ulmonary hypertension. Tricuspid Valve: The right ventricular systolic pressure (pulmonary artery systolic pressure), as measured by Doppler, is 62.61mmHg. Pulmonic Valve: The pulmoni c valve was not well visualized. Pericardium: There is a small pericardial effusion is locat ed near the right ventricle. Pericardium: There is no evidence of cardiac tamponade. IVC/He patic Veins: The IVC is normal size (1.5-2.5cm) and collapses <50% with sniff, consistent wi th central venous pressures of 10-15mmHg. MEASUREMENTS IVC: 2.09 cm LA Marcia r: 5.82 cm LVOT Diam: 1.79 cm RA Major: 4.51 cm RVIDd: 3.11 cm LVEF MOD A4C: 23.06 % SV MOD A4C: 24.01 ml LVEDV MOD A4C: 104.12 ml LVLd A4C: 8.32 cm LVESV MOD A4C: 80 .11 ml LVLs A4C: 7.57 cm LAEDV(A-L): 71.18 ml LAEDV Index (A-L): 48.42 ml/m2 LAAd A2C: 18.54 cm2 LAEDV A-L A2C: 58.33 ml LAEDV MOD A2C: 55.18 ml LALd A2C: 5.00 cm LAAd A4 C: 22.63 cm2 LAEDV A-L A4C: 72.64 ml LAEDV MOD A4C: 66.83 ml LALd A4C: 5.98 cm MR Fl ow: 105.73 ml/s MR Rad: 0.66 cm MR Als.Mc: 0.37 m/s Ao Diam: 3.13 cm AV Cusp: 1.5 1 cm LA Diam: 3.87 cm LA/Ao: 1.23 %FS: 25.64 % EDV(Teich): 231.10 ml EF(Teich): 4 9.31 % ESV(Teich): 117.12 ml IVSd: 0.68 cm IVSs: 0.92 cm LVIDd: 6.69 cm LVIDs: 4.9 7 cm LVPWd: 0.92 cm LVPWs: 1.37 cm SV(Teich): 113.97 ml D-E Excursion: 1.44 cm E-F S vinny: 0.05 m/s EPSS: 1.21 cm AR Dec [place]: 1.60 m/s2 AR Dec Time: 1757.97 ms AR maxP .96 mmHg AR PHT: 509.81 ms AR Vmax: 2.82 m/s HR: 66.94 BPM AR maxP.20 mm Hg AR meanP.96 mmHg AR Vmax: 2.55 m/s AR Vmean: 2.15 m/s AR VTI: 129.70 cm ARen d P.29 mmHg ARend Vmax: 2.11 m/s HR: 96.87 BPM AV maxP.97 mmHg AV meanP.13 mmHg AV Vmax: 1.22 m/s AV Vmean: 0.83 m/s AV VTI: 23.32 cm SANDOVAL Vmax: 1.90 cm2 SANDOVAL (VTI): 1.87 cm2 LVCI Dopp: 2.90 l/minm2 LVCO Dopp: 4.27 l/min HR: 97.96 BPM LVOT maxP.38 mmHg LVOT meanP.00 mmHg LVSI Dopp: 29.68 ml/m2 LVSV Dopp: 43.64 ml LVOT Vmax: 0.92 m/s LVOT Vmean: 0.67 m/s LVOT VTI: 17.27 cm MCO: 321.79 ms MR maxP.39 mmHg MR meanP.15 mmHg MR Vmax: 3.29 m/s MR Vmean: 2.56 m/s MR VTI: 73. 68 cm MR maxP.16 mmHg MR Vmax: 3.94 m/s MV A Mc: 1.23 m/s MV DecT: 147.26 ms M V E Mc: 0.73 m/s MV E/A Ratio: 0.59 MV PHT: 43.08 ms MVA By PHT: 5.10 cm2 MV A Dur : 89.96 ms Septal e': 0.03 m/s Septal E/e': 21.69 Lateral e': 0.03 m/s Lateral E/e' : 19.47 MR ERO: 0.25 cm2 MR RV: 28.74 ml MR Vmax: 4.18 m/s MR VTI: 113.69 cm P Ve in A: 0.35 m/s P Vein A Dur: 134.94 ms P Vein D: 0.34 m/s P Vein S/D Ratio: 1.82 P Vein S: 0.62 m/s HR: 99.65 BPM PV maxP.89 mmHg PV meanP.75 mmHg PV Vmax: 0 .85 m/s PV Vmean: 0.62 m/s PV VTI: 14.43 cm RAP: 15 mmHg RVSP: 62.60 mmHg TR maxP.60 mmHg TR Vmax: 3.44 m/s TV A Mc: 0.93 m/s TV Dec [place]: 4.08 m/s2 TV Dec Time: 135.12 ms TV E Mc: 0.55 m/s TV E/A Ratio: 0.58 Cardiac Exercise Physiologist: LOLY Authenticated by: Christiano Guzman MD Report Date/Time: 05-01-2014 16:13:14 05/01/2014 1. Overall left ventricular systolic function is moderately impaired with, an EF between 30 - 40 %. 2. The left ventricle is markedly dilated. 3. mid anteroseptal - akinetic ; 4. apex - akinetic; 5. The left atrium is mildly dilated. 6. There is mxkl-ou-yaxyqgni a ortic regurgitation. 7. Fbuy-yl-qbiwtxzl mitral regurgitation is present. 8. There is modera te pulmonary hypertension. 9. The right ventricular systolic pressure (pulmonary artery syst olic pressure), as measured by Doppler, is 62.61mmHg. 10. There is a small pericardial effus ion is located near the right ventricle. 11. There is no evidence of cardiac tamponade. Nm Cardiovascular Stress Treadmill 05/05/2014 This procedure was resulted in [place] (the cardiology system). Please see the Medi a tab in Chart Review to see the result for this procedure. PROBLEM LIST Principal Problem: *Dyspnea Active Problems: Hypoxia Orthopnea DM2 (diabetes mellitus, type 2) LEANNA (acute kidney injury) Elevated troponin Acute systolic CHF (congestive heart failure) Anemia, iron deficiency Vitamin D deficiency Acidosis, metabolic Hyponatremia Hyperphosphatemia ASSESSMENT & PLAN NM MYOCARDIAL PERFUSION SPECT - STRESS AND REST IMPRESSION: 1. Large infarct involving anterior, septal, and distal inferior wall with mild pretty-infarc t ischemia. 2. Left ventricular ejection fraction is calculated at 21%. 3. Dilated left ventricle. Nuc study Reviewed. No significant ischemia. Her CT is old. Reason for admission was anemia, no need for further cardia work up. Would benefit from bet a blockers for decreased LV function. Electronically signed by Leandro Terrell MD at Ms. Hawkins is a 83 y.o. 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 Lab Results Component Value Date BUN 44* 05/07/2014 BUN 53* 05/06/2014 BUN 56* 05/05/2014 CREATININE 1.68* 05/07/2014 CREATININE 1.85* 05/06/2014 CREATININE 2.27* 05/05/2014 EGFR 31* 05/07/2014 EGFR 28* 05/06/2014 EGFR 22* 05/05/2014 Echo Cardiac Adult Complete 05/01/2014 1. Overall left ventricular systolic function is moderately impaired with, an EF b etween 30 - 40 %. 2. The left ventricle is markedly dilated. 3. mid anteroseptal - akinetic; 4. apex - akinetic; 5. The left atrium is mildly dilated. 6. There is yahi-lp-izxchebo aort ic regurgitation. 7. Ugoq-lj-jngiiigh mitral regurgitation is present. 8. There is moderate pulmonary hypertension. 9. The right ventricular systolic pressure (pulmonary artery systoli c pressure), as measured by Doppler, is 62.61mmHg. 10. There is a small pericardial effusion is located near the right ventricle. 11. There is no evidence of cardiac tamponade. NSTEMI D/Nate IV LASIX D/W DR WHITE lasix 20mg QD PO OK Assessment: Hemodynamically stable. Renal function most likely with CKD stage 3 with some component of acute injury with decomp ensated systolic CHF, anemia, and NSTEMI. Creatinine stable. HBA1C noted to be 7.5 consistent with untreated DM2. Proteinuria work up with negative Hepatitis panel, negative YAMILETH, normal ,C3 and C4. FLC rat io normal. Hypertension well controlled. Clinically and radiologically volume overloaded with no lower extremity edema, but with JVD , orthopnea. PO4 borderline high with renal insufficiency and reduced renal clearance.Started on PO renv narcisa. Vitamin D deficiency noted. Started On PO replacement. Marked Fe deficiency anemia noted and would need age appropriate GI work up with EGD/colono scopy to exclude GI loss. Transfused PRBC (unable to tolerate IV Fe) and Hb rise appropriate . Recommendations Diuresed with IV lasix for decompensated systolic CHF.STOPPED dose to 5 mg/hr.Strict 1.5 L fluid restriction. Lasix 20 mg daily by mouth at this time No SURESH/ARB for now. Reassess kidney function after diuresis and completion of work up to see what her baseline creatinine is. Regardless with history of smoking and with longstanding untreated DM2 likely has CKD which would increase her risk of IZZY. No IVF. Cont. vitamin D replacement, renvela, and sodium bicarbonate. 2 gm Na, 2 gm K, 1 gm PO4, 1 gm/kg protein diet. Please dose all medications per eGFR Pt to AVOID NSAID,TROY II inhibitors,IV Contrast and Nephrotoxic Antibiotics Fluid restriction 1.5 L in 24 hr period. Strict I/O (ortega catheter may be placed for accurate estimation). Daily CMP (including Mg, PO4). D/W DR WHITE, LASIX 20 mg QD ??COREG Patient's daughter wanted to follow-up with Dr. Carbajal in his local clinic in [place] Time spend over 25 minutes of time spent evaluating the patient, reviewing the data, formu lating a plan and discussion with patient and hospitalist team, more than half of the time s pent in counseling and coordination of care. HORTENSIA PATEL MD 05/07/2014 Yoel Molina MD - 05/06/2014 11:06 AM PDTFormatting of this note might be different from the origi nal. Progress Notes by Aylin White MD at 05/06/14 1106 Author: Aylin White MD Service: Hospitalist Author Type: Physician Filed: 05/06/14 1112 Date of Service: 05/06/14 1106 Status: Signed Prop Maker: Aylin White MD (Physician) [facility] Service: Hospitalist Progress Note Hospital Day: LOS: 5 days Chief Complaint: Shortness of breath SUBJECTIVE Events Overnight: Stool occult blood test was positive yesterday. Patient denies any bleeding. Denies any s ignificant shortness of breath, chest pain, nausea, vomiting, abdominal pain. Scheduled Medications aspirin 325 mg Oral Daily with breakfast cholecalciferol 1,000 Units Oral Daily ergocalciferol 50,000 Units Oral Weekly ferrous sulfate (65 FE) 65 mg of iron Oral TID WC furosemide 20 mg Oral Daily insulin aspart 0-3 Units Subcutaneous Nightly insulin aspart 0-6 Units Subcutaneous TID AC insulin detemir 10 Units Subcutaneous Nightly metoprolol 25 mg Oral BID polyethylene glycol 4,000 mL Oral Once [COMPLETED] potassium chloride 40 mEq Oral Once senna-docusate 1 tablet Oral Nightly sevelamer 800 mg Oral TID WC simvastatin 20 mg Oral Nightly sodium bicarbonate 648 mg Oral TID sodium chloride 10 mL Intravenous Q8H [DISCONTINUED] heparin (porcine) 5,000 Units Subcutaneous Q8H ROXANE [DISCONTINUED] senna-docusate 1 tablet Oral BID Continuous Infusions dextrose PRN Medications acetaminophen, acetaminophen, dextrose, dextrose, dextrose, glucagon, glucagon, ondansetron , ondansetron, polyethylene glycol, zolpidem, [DISCONTINUED] heparin (porcine), [DISCONTINUE D] heparin (porcine) OBJECTIVE Vital Signs: BP 107/55 | Pulse 68 | Temp 98.1 F (36.7 C) (Oral) | Resp 16 | Ht 1.499 m (4' 11") | Wt 55.6 kg (122 lb 9.2 oz) | BMI 24.74 kg/m2 | SpO2 99% | ? No Filed Vitals: 05/05/14 2327 05/06/14 0017 05/06/14 0504 05/06/14 0715 BP: 100/55 107/55 107/55 Pulse: 72 84 68 Temp: 98.4 F (36.9 C) 98.4 F (36.9 C) 98.1 F (36.7 C) TempSrc: Oral Oral Oral Resp: 16 16 16 Height: Weight: 55.6 kg (122 lb 9.2 oz) SpO2: 97% 94% 99% Intake/Output Summary (Last 24 hours) at 05/06/14 1106 Last data filed at 05/06/14 0720 Gross per 24 hour Intake 800 ml Output 1000 ml Net -200 ml General: Comfortable HEENT: No thrush. Neck: No JVD, Trachea midline. Psych: Alert and oriented x 3. Calm, cooperative. Cardiovascular: Regular rate and rhythm, no murmurs, no palpable thrills. Normal PMI. Respiratory: Decreased breath sounds at bases. no wheezing or crackles, breathing non labo red. Chest expansion equal on both sides. No use of accessory muscles. Gastrointestinal: Soft, non-tender, non-distended, positive bowel sounds. No HSM. Musculoskeletal: No edema in bilateral lower extremities. No joint swelling. Skin: foot diabetes skin lesions? Not infected. Neurological: Higher functions grossly normal. Non focal. Motor and sensory grossly intact. Normal co-ordination. DATA Lab 05/06/1442905/05/1441405/04/14456 WBC 9.9 9.4 10.6 HGB 10.9* 11.1* 10.6* HCT 33.2* 33.3* 32.2* PLT 241 246 228 NEUTOPHILPCT 64.8 70.6 71.7 MONOPCT 8.3 8.7 9.2 Lab 05/06/1442905/05/1441405/04/14456 NA 135 134* 136 K 4.0 3.4* 3.9 CL 101 97* 102 CO2 27 28 26 BUN 53* 56* 50* CREATININE 1.85* 2.27* 2.20* CALCIUM -- -- -- PROT 6.3 6.6 6.4 BILITOT 0.3 0.3 0.4 ALKPHOS -- -- -- ALT 7* 8* 6* AST 9* 10 8* GLUCOSE -- -- -- Phosphorus: Lab Results Component Value Date PHOS 4.1 05/06/2014 No components found with this basename: LABALBU:3 Lab 05/06/1442905/05/1441405/04/14456 MG 2.3 2.2 2.0 No results found for this basename: AMYLASE:3 in the last 168 hours No results found for this basename: PHART:3,PO2ART:3,SYC3DRE:3,W0ZPQCTO:3,BEART:[address] 168 hours Lab 05/02/14 0724 05/02/14 0111 05/01/14 1010 APTT 30 28 24 INR -- -- 1.0 PTT -- -- -- No results found for this basename: TSH:3,T3FREE:3,FREET4:3 in the last 168 hours Lab 05/02/14 0811 05/01/14 1503 05/01/14 1010 CKTOTAL 101 97 96 TROPONINI 1.83* 1.65* -- TROPONINT -- -- -- CKMBINDEX 4.3 5.6 5.2 Results Procedure Component Value Units Date/Time Fecal occult blood (in house) [[id number]] (Abnormal) Collected:05/05/14 1302 Specimen Information:Stool / Stool Updated:05/05/14 1334 Fecal Occult Blood POSITIVE (A) Xr Chest 2 View 05/01/2014 ALEXSANDRA HAWKINS 1930 83 years Female XR CHEST 2 VIEW FRONTAL AND LATERAL 05/01/2014 11:56 AM INDICATION: Shortness of breath COMPARISON: None. TECHNIQUE: Two view [place] [address], [place] and lateral views FINDINGS: There is moderate enlargement of the cardiac silhouette. There is no widening or shift of the mediastinum. There is no pneumothorax. The costophreni c angle is blunted bilaterally suggestive of some pleural fluid. Moderate degenerative disc disease and osteopenia is present with several chronic appearing wedge deformities throughou t the thoracic and lumbar spine. The vasculature is mildly distended with slightly increased hazy reticular markings throughout the lung. 05/01/2014 1. Imaging findings concerning for pulmonary edema. Echo Cardiac Adult Complete 05/01/2014 Patient Name: ALEXSANDRA HAWKINS Date of : 1930 Performing Physician: Christiano Guzman MD INDICATIONS CHF CONCLUSIONS 1. Overall left ventricula r systolic function is moderately impaired with, an EF between 30 - 40 %. 2. The left ventri americo is markedly dilated. 3. mid anteroseptal - akinetic; 4. apex - akinetic; 5. The left a trium is mildly dilated. 6. There is qmqs-xd-nqnqyith aortic regurgitation. 7. Floh-rr-grkea ate mitral regurgitation is present. 8. There is moderate pulmonary hypertension. 9. The rig ht ventricular systolic pressure (pulmonary artery systolic pressure), as measured by Dopple r, is 62.61mmHg. 10. There is a small pericardial effusion is located near the right ventric le. 11. There is no evidence of cardiac tamponade. FINDINGS -------- ECG rhythm: Sinus rhyt hm with extra systolic beats. Study: A 2-dimensional transthoracic echocardiogram with m-mod e, spectral and color flow Doppler was perfomed. Study: This was a technically adequate tha dy. Left Ventricle: Overall left ventricular systolic function is moderately impaired with, an EF between 30 - 40 %. Left Ventricle: The left ventricle is markedly dilated. Left Vent ricle: Left ventricular wall thickness is normal. Left Ventricle: mid anteroseptal - akinet ic; Left Ventricle: apex - akinetic; Right Ventricle: The right ventricle is normal in si ze. Left Atrium: The left atrium is mildly dilated. Right Atrium: The right atrial size is n ormal. Aortic Valve: The aortic valve was not well visualized. Aortic Valve: The aortic louis ve is mildly calcified. Aortic Valve: There is gelc-qo-opdlmbjb aortic regurgitation. Aort ic Valve: There is no evidence of significant aortic stenosis. Mitral Valve: The mitral louis ve is normal. Mitral Valve: Vhaq-zw-iidpamkh mitral regurgitation is present. Mitral Valve : Moderate mitral annular calcification present. Mitral Valve: Mild thickening of the anter ior mitral valve leaflet. Mitral Valve: There is mild thickening of the posterior mitral va lve leaflet. Tricuspid Valve: The tricuspid valve appears structurally normal. Tricuspid Va lve: Iwja-nn-wouyjyjn tricuspid regurgitation present. Tricuspid Valve: There is moderate p ulmonary hypertension. Tricuspid Valve: The right ventricular systolic pressure (pulmonary artery systolic pressure), as measured by Doppler, is 62.61mmHg. Pulmonic Valve: The pulmoni c valve was not well visualized. Pericardium: There is a small pericardial effusion is locat ed near the right ventricle. Pericardium: There is no evidence of cardiac tamponade. IVC/He patic Veins: The IVC is normal size (1.5-2.5cm) and collapses <50% with sniff, consistent wi central venous pressures of 10-15mmHg. MEASUREMENTS IVC: 2.09 cm LA Marcia r: 5.82 cm LVOT Diam: 1.79 cm RA Major: 4.51 cm RVIDd: 3.11 cm LVEF MOD A4C: 23.06 % SV MOD A4C: 24.01 ml LVEDV MOD A4C: 104.12 ml LVLd A4C: 8.32 cm LVESV MOD A4C: 80 .11 ml LVLs A4C: 7.57 cm LAEDV(A-L): 71.18 ml LAEDV Index (A-L): 48.42 ml/m2 LAAd A2C: 18.54 cm2 LAEDV A-L A2C: 58.33 ml LAEDV MOD A2C: 55.18 ml LALd A2C: 5.00 cm LAAd A4 C: 22.63 cm2 LAEDV A-L A4C: 72.64 ml LAEDV MOD A4C: 66.83 ml LALd A4C: 5.98 cm MR Fl ow: 105.73 ml/s MR Rad: 0.66 cm MR Als.Mc: 0.37 m/s Ao Diam: 3.13 cm AV Cusp: 1.5 1 cm LA Diam: 3.87 cm LA/Ao: 1.23 %FS: 25.64 % EDV(Teich): 231.10 ml EF(Teich): 4 9.31 % ESV(Teich): 117.12 ml IVSd: 0.68 cm IVSs: 0.92 cm LVIDd: 6.69 cm LVIDs: 4.9 7 cm LVPWd: 0.92 cm LVPWs: 1.37 cm SV(Teich): 113.97 ml D-E Excursion: 1.44 cm E-F S vinny: 0.05 m/s EPSS: 1.21 cm AR Dec [place]: 1.60 m/s2 AR Dec Time: 1757.97 ms AR maxP .96 mmHg AR PHT: 509.81 ms AR Vmax: 2.82 m/s HR: 66.94 BPM AR maxP.20 mm Hg AR meanP.96 mmHg AR Vmax: 2.55 m/s AR Vmean: 2.15 m/s AR VTI: 129.70 cm ARen d P.29 mmHg ARend Vmax: 2.11 m/s HR: 96.87 BPM AV maxP.97 mmHg AV meanP.13 mmHg AV Vmax: 1.22 m/s AV Vmean: 0.83 m/s AV VTI: 23.32 cm SANDOVAL Vmax: 1.90 cm2 SANDOVAL (VTI): 1.87 cm2 LVCI Dopp: 2.90 l/minm2 LVCO Dopp: 4.27 l/min HR: 97.96 BPM LVOT maxP.38 mmHg LVOT meanP.00 mmHg LVSI Dopp: 29.68 ml/m2 LVSV Dopp: 43.64 ml LVOT Vmax: 0.92 m/s LVOT Vmean: 0.67 m/s LVOT VTI: 17.27 cm MCO: 321.79 ms MR maxP.39 mmHg MR meanP.15 mmHg MR Vmax: 3.29 m/s MR Vmean: 2.56 m/s MR VTI: 73. 68 cm MR maxP.16 mmHg MR Vmax: 3.94 m/s MV A Mc: 1.23 m/s MV DecT: 147.26 ms M V E Mc: 0.73 m/s MV E/A Ratio: 0.59 MV PHT: 43.08 ms MVA By PHT: 5.10 cm2 MV A Dur : 89.96 ms Septal e': 0.03 m/s Septal E/e': 21.69 Lateral e': 0.03 m/s Lateral E/e' : 19.47 MR ERO: 0.25 cm2 MR RV: 28.74 ml MR Vmax: 4.18 m/s MR VTI: 113.69 cm P Ve in A: 0.35 m/s P Vein A Dur: 134.94 ms P Vein D: 0.34 m/s P Vein S/D Ratio: 1.82 P Vein S: 0.62 m/s HR: 99.65 BPM PV maxP.89 mmHg PV meanP.75 mmHg PV Vmax: 0 .85 m/s PV Vmean: 0.62 m/s PV VTI: 14.43 cm RAP: 15 mmHg RVSP: 62.60 mmHg TR maxP.60 mmHg TR Vmax: 3.44 m/s TV A Mc: 0.93 m/s TV Dec [place]: 4.08 m/s2 TV Dec Time: 135.12 ms TV E Mc: 0.55 m/s TV E/A Ratio: 0.58 Cardiac Exercise Physiologist: LOLY Authenticated by: Christiano Guzman MD Report Date/Time: 05-01-2014 16:13:14 05/01/2014 1. Overall left ventricular systolic function is moderately impaired with, an EF between 30 - 40 %. 2. The left ventricle is markedly dilated. 3. mid anteroseptal - akinetic ; 4. apex - akinetic; 5. The left atrium is mildly dilated. 6. There is zlvp-ey-tybbphvt a ortic regurgitation. 7. Ofio-pn-mmwkgnwf mitral regurgitation is present. 8. There is modera te pulmonary hypertension. 9. The right ventricular systolic pressure (pulmonary artery syst olic pressure), as measured by Doppler, is 62.61mmHg. 10. There is a small pericardial effus ion is located near the right ventricle. 11. There is no evidence of cardiac tamponade. PROBLEM LIST Principal Problem: *Dyspnea Active Problems: Hypoxia Orthopnea DM2 (diabetes mellitus, type 2) LEANNA (acute kidney injury) Elevated troponin Acute systolic CHF (congestive heart failure) Anemia, iron deficiency Vitamin D deficiency Acidosis, metabolic Hyponatremia Hyperphosphatemia ASSESSMENT/ PLAN Dyspnea: This is likely secondary to acute systolic congestive heart failure. Patient seen by Dr. Terrell. We have started this patient on aspirin, metoprolol, statin. 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 Stress test was done today. Reviewed by cardiology. Continue Lasix 20 mg oral daily. Potential is normal now. Acute kidney injury: Nephrology is following. Kidney functions have improved. Ultrasound k idneys do not show hydronephrosis. Diabetes mellitus. Blood sugars reasonably controlled. Continue Levemir and insulin slidi ng scale. Hemoglobin A1c 7.5. Anemia: Iron deficiency anemia. Status post 2 unit of packed RBC transfusions. Hemoglobin is stable now . Continue iron replacement. Occult blood test has been positive in the stool. Consulted gastroenterology, zulma Craig patient will need to be on aspirin after discharge. Patient nothing by mouth past midnigh t for endoscopy tomorrow. Hyperkalemia: Resolved. DVT prophylaxis: Heparin discontinued because of positive stool occult blood test. Ordered labs for tomorrow. Code Status: Full Code Aylin White MD 05/06/201411:06 AM Chart Correction History Action User Date/Time Reason Details Note Type Change Him Admin Close 2 06/26/14 0808 Changed from H&P. Gena, Becky Gaming MD - 05/06/2014 8:42 AM PDTFormatting of this note might be different from the orig inal. Progress Notes by Hortensia Patel MD at 05/06/14 08 Author: Hortensia Patel MD Service: Nephrology Author Type: Physician Filed: 05/06/14 1233 Date of Service: 05/06/14841 Status: Signed Prop Maker: Hortensia Patel MD (Physician) [facility] Service: NEPHROLOGY Progress Note Alexsandra Hawkins 83 y.o. [phone] [id number] female [facility] Day: LOS: 5 days SUBJECTIVE Patient seen and examined. ADMITTED WITH Dyspnea Alexsandra Hawkins is a 83 y.o. female followed for renal insufficiency in setting of decompen sated CHF (systolic). Interval history: Alexsandra Hawkins feels 'OK' today. No fever, chills sweats. No nausea, vomiting or diarrhea. + shortness or breath, but no chest pain, cough. No dysuria, urgency, frequency, gross hematuria, urinary hesitancy. ROS: As in History of Present Illness. 7 area ROS was done and was otherwise negative. 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 Family History Problem Relation Age of Onset Heart disease Neg Hx Diabetes Daughter Scheduled Medications aspirin 325 mg Oral Daily with breakfast cholecalciferol 1,000 Units Oral Daily ergocalciferol 50,000 Units Oral Weekly ferrous sulfate (65 FE) 65 mg of iron Oral TID WC furosemide 20 mg Oral Daily insulin aspart 0-3 Units Subcutaneous Nightly insulin aspart 0-6 Units Subcutaneous TID AC insulin detemir 10 Units Subcutaneous Nightly metoprolol 25 mg Oral BID [COMPLETED] potassium chloride 40 mEq Oral Once senna-docusate 1 tablet Oral Nightly sevelamer 800 mg Oral TID WC simvastatin 20 mg Oral Nightly sodium bicarbonate 648 mg Oral TID sodium chloride 10 mL Intravenous Q8H [DISCONTINUED] heparin (porcine) 5,000 Units Subcutaneous Q8H ROXANE [DISCONTINUED] senna-docusate 1 tablet Oral BID Continuous Infusions dextrose PRN Medications acetaminophen, acetaminophen, dextrose, dextrose, dextrose, glucagon, glucagon, heparin (po rcine), heparin (porcine), ondansetron, ondansetron, polyethylene glycol, [COMPLETED] regade noson, zolpidem Allergy: No Known Allergies OBJECTIVE Vital Signs: BP 107/55 | Pulse 68 | Temp 98.1 F (36.7 C) (Oral) | Resp 16 | Ht 1.499 m (4' 11") | Wt 55.6 kg (122 lb 9.2 oz) | BMI 24.74 kg/m2 | SpO2 99% | ? No I&O Detailed Table: I/O last 3 completed shifts: In: 1320 [P.O.:1300; I.V.:20] Out: 2875 [Urine:2875] Weight change: -0.8 kg (-1 lb 12.2 oz) Hemodynamics Last 24hrs: Examination: APPEARANCE: short of breath, but better. VITALS: Reviewed as listed. HEENT: EOMI. Non-icteric sclera.+ JVD LYMPHATIC: No palpable lymphadenopathy. LUNGS: Basal occ rales. HEART: S1 soft. No S3 .No murmur. ABDOMEN: Soft, no tenderness. Bowel sounds present. No organomegaly or bruits. EXTREMITIES: No LE edema. No cyanosis or clubbing. SKIN: Warm to touch. Circular hyperpigmented lesions on both feet. NEUROLOGIC: No gross focal motor deficit. PSYCH: Alert and oriented x 3, mood and affect ok, BACK: No CVA tenderness. No sacral edema. LABS: IRON: Lab Results Component Value Date IRON 65 05/02/2014 Lab Results Component Value Date FERRITIN 7 05/02/2014 LABIRON 16 05/02/2014 CBC: Lab Results Component Value Date WBC 9.9 05/06/2014 RBC 4.30 05/06/2014 HGB 10.9* 05/06/2014 HCT 33.2* 05/06/2014 MCV 77.1* 05/06/2014 MCH 25.4* 05/06/2014 MCHC 33.0 05/06/2014 RDW 45.5 05/06/2014 PLT 241 05/06/2014 MPV 9.1 05/06/2014 DIFFTYPE AUTOMATED 05/06/2014 CMP: Lab Results Component Value Date NA 135 05/06/2014 K 4.0 05/06/2014 CL 101 05/06/2014 CO2 27 05/06/2014 ANIONGAP 11 05/06/2014 GLUF 93 05/06/2014 BUN 53* 05/06/2014 CREATININE 1.85* 05/06/2014 BCR 29 05/06/2014 CA 8.3* 05/06/2014 CA 7.7* 05/02/2014 PROT 6.3 05/06/2014 ALB 3.3 05/06/2014 GLOB 3.0 05/06/2014 BILITOT 0.3 05/06/2014 ALP 87 05/06/2014 AST 9* 05/06/2014 ALT 7* 05/06/2014 EGFR 28* 05/06/2014 Magnesium: Lab Results Component Value Date MG 2.3 05/06/2014 Phosphorus: Lab Results Component Value Date PHOS 4.1 05/06/2014 PT/INR: Lab Results Component Value Date INR 1.0 05/01/2014 Troponin: Lab Results Component Value Date TROPONINI 1.83* 05/02/2014 Lab Results Component Value Date PTHINTACT 93* 05/02/2014 [id number] <12* 05/02/2014 Lab Results Component Value Date [id number] 05/02/2014 Lab Results Component Value Date URICACID 8.1* 05/02/2014 Lab Results Component Value Date HGBA1C 7.5* 05/02/2014 IMAGING Xr Chest 2 View 05/01/2014 ALEXSANDRA HAWKINS 1930 83 years Female XR CHEST 2 VIEW FRONTAL AND LATERAL 05/01/2014 11:56 AM INDICATION: Shortness of breath COMPARISON: None. TECHNIQUE: Two view [place], [place] and lateral views FINDINGS: There is moderate enlargement of the cardiac silhouette. There is no widening or shift of the mediastinum. There is no pneumothorax. The costophreni c angle is blunted bilaterally suggestive of some pleural fluid. Moderate degenerative disc disease and osteopenia is present with several chronic appearing wedge deformities throughou t the thoracic and lumbar spine. The vasculature is mildly distended with slightly increased hazy reticular markings throughout the lung. 05/01/2014 1. Imaging findings concerning for pulmonary edema. Nm Myocardial Perfusion Spect (stress And Rest) 05/05/2014 LAEXSANDRA HAWKINS RI MYOCARDIAL PERFUSION SPECT - STRESS AND REST HISTORY: 83 year s. Female. Shortness of breath and elevated troponins. TECHNIQUE: A same day protocol was u sed. For the resting portion of the study the patient was injected intravenously with 10 mC i technetium 99m Myoview. Gated SPECT imaging was performed in the supine position. The pa tient was then pharmacologically stressed using a regadenoson protocol. The patient receive d 0.4 mg of regadenoson intravenously. The patient was intravenously administered 40 mCi te chnetium 99m Myoview. Gated SPECT images were acquired in the prone and supine positions. COMPARISON: None. FINDINGS: Large area of decreased perfusion involving the mid and distal anterior wall, mid and distal septal wall, and distal aspect of the inferior wall on both casarez pine stress and rest images that is mildly greater on supine stress and rest images. Finding s are felt to represent infarct with mild pretty-infarct ischemia. Akinesia within the mid and distal anterior and septal gaytan with mild paradoxical wall motion. STRESS: End-diastolic volume: 138 mL End-systolic volume: 109 mL Ejection fraction: 21% REST: End-diastolic volume : 142 mL End-systolic volume: 122 mL Ejection fraction: 14% 05/05/2014 1. Large infarct involving anterior, septal, and distal inferior wall with mild pretty-infarct ischemia. 2. Left ventricular ejection fraction is calculated at 21%. 3. Dila yasmin left ventricle. Ultrasound Kidneys And Bladder 05/02/2014 ALEXSANDRA HAWKINS KIDNEYS AND BLADDER HISTORY: 83 years. Female. Chronic kidney disease. TECHNIQUE: Sonographic evaluation of the kidneys and bladder was performed. COMP ARISON: None. FINDINGS: The right kidney measures 9.4 x 4.8 x 4.5 cm. The left kidney measu res 10.2 x 5.4 x 4.8 cm. The kidneys have a normal cortical echotexture without evidence of hydronephrosis. The bladder is completely empty. The patient voided prior to imaging. 05/02/2014 1. Unremarkable renal ultrasound. Echo Cardiac Adult Complete 05/01/2014 Patient Name: ALEXSANDRA HAWKINS Date of : 1930 Performing Physician: Christiano Guzman MD INDICATIONS CHF CONCLUSIONS 1. Overall left ventricula r systolic function is moderately impaired with, an EF between 30 - 40 %. 2. The left ventri americo is markedly dilated. 3. mid anteroseptal - akinetic; 4. apex - akinetic; 5. The left a trium is mildly dilated. 6. There is ucid-mc-azticglf aortic regurgitation. 7. Bbzn-ve-smkfc ate mitral regurgitation is present. 8. There is moderate pulmonary hypertension. 9. The rig ht ventricular systolic pressure (pulmonary artery systolic pressure), as measured by Dopple r, is 62.61mmHg. 10. There is a small pericardial effusion is located near the right ventric le. 11. There is no evidence of cardiac tamponade. FINDINGS -------- ECG rhythm: Sinus rhyt hm with extra systolic beats. Study: A 2-dimensional transthoracic echocardiogram with m-mod e, spectral and color flow Doppler was perfomed. Study: This was a technically adequate tha dy. Left Ventricle: Overall left ventricular systolic function is moderately impaired with, an EF between 30 - 40 %. Left Ventricle: The left ventricle is markedly dilated. Left Vent ricle: Left ventricular wall thickness is normal. Left Ventricle: mid anteroseptal - akinet ic; Left Ventricle: apex - akinetic; Right Ventricle: The right ventricle is normal in si ze. Left Atrium: The left atrium is mildly dilated. Right Atrium: The right atrial size is n ormal. Aortic Valve: The aortic valve was not well visualized. Aortic Valve: The aortic louis ve is mildly calcified. Aortic Valve: There is thqk-as-zepbjsmg aortic regurgitation. Aort ic Valve: There is no evidence of significant aortic stenosis. Mitral Valve: The mitral louis ve is normal. Mitral Valve: Pkmj-pu-actrvmab mitral regurgitation is present. Mitral Valve : Moderate mitral annular calcification present. Mitral Valve: Mild thickening of the anter ior mitral valve leaflet. Mitral Valve: There is mild thickening of the posterior mitral va lve leaflet. Tricuspid Valve: The tricuspid valve appears structurally normal. Tricuspid Va lve: Cfut-pg-ptiwmted tricuspid regurgitation present. Tricuspid Valve: There is moderate p ulmonary hypertension. Tricuspid Valve: The right ventricular systolic pressure (pulmonary artery systolic pressure), as measured by Doppler, is 62.61mmHg. Pulmonic Valve: The pulmoni c valve was not well visualized. Pericardium: There is a small pericardial effusion is locat ed near the right ventricle. Pericardium: There is no evidence of cardiac tamponade. IVC/He patic Veins: The IVC is normal size (1.5-2.5cm) and collapses <50% with sniff, consistent wi th central venous pressures of 10-15mmHg. MEASUREMENTS IVC: 2.09 cm LA Marcia r: 5.82 cm LVOT Diam: 1.79 cm RA Major: 4.51 cm RVIDd: 3.11 cm LVEF MOD A4C: 23.06 % SV MOD A4C: 24.01 ml LVEDV MOD A4C: 104.12 ml LVLd A4C: 8.32 cm LVESV MOD A4C: 80 .11 ml LVLs A4C: 7.57 cm LAEDV(A-L): 71.18 ml LAEDV Index (A-L): 48.42 ml/m2 LAAd A2C: 18.54 cm2 LAEDV A-L A2C: 58.33 ml LAEDV MOD A2C: 55.18 ml LALd A2C: 5.00 cm LAAd A4 C: 22.63 cm2 LAEDV A-L A4C: 72.64 ml LAEDV MOD A4C: 66.83 ml LALd A4C: 5.98 cm MR Fl ow: 105.73 ml/s MR Rad: 0.66 cm MR Als.Mc: 0.37 m/s Ao Diam: 3.13 cm AV Cusp: 1.5 1 cm LA Diam: 3.87 cm LA/Ao: 1.23 %FS: 25.64 % EDV(Teich): 231.10 ml EF(Teich): 4 9.31 % ESV(Teich): 117.12 ml IVSd: 0.68 cm IVSs: 0.92 cm LVIDd: 6.69 cm LVIDs: 4.9 7 cm LVPWd: 0.92 cm LVPWs: 1.37 cm SV(Teich): 113.97 ml D-E Excursion: 1.44 cm E-F S vinny: 0.05 m/s EPSS: 1.21 cm AR Dec Washita: 1.60 m/s2 AR Dec Time: 1757.97 ms AR maxP .96 mmHg AR PHT: 509.81 ms AR Vmax: 2.82 m/s HR: 66.94 BPM AR maxP.20 mm Hg AR meanP.96 mmHg AR Vmax: 2.55 m/s AR Vmean: 2.15 m/s AR VTI: 129.70 cm ARen d P.29 mmHg ARend Vmax: 2.11 m/s HR: 96.87 BPM AV maxP.97 mmHg AV meanP.13 mmHg AV Vmax: 1.22 m/s AV Vmean: 0.83 m/s AV VTI: 23.32 cm SANDOVAL Vmax: 1.90 cm2 SANDOVAL (VTI): 1.87 cm2 LVCI Dopp: 2.90 l/minm2 LVCO Dopp: 4.27 l/min HR: 97.96 BPM LVOT maxP.38 mmHg LVOT meanP.00 mmHg LVSI Dopp: 29.68 ml/m2 LVSV Dopp: 43.64 ml LVOT Vmax: 0.92 m/s LVOT Vmean: 0.67 m/s LVOT VTI: 17.27 cm MCO: 321.79 ms MR maxP.39 mmHg MR meanP.15 mmHg MR Vmax: 3.29 m/s MR Vmean: 2.56 m/s MR VTI: 73. 68 cm MR maxP.16 mmHg MR Vmax: 3.94 m/s MV A Mc: 1.23 m/s MV DecT: 147.26 ms M V E Mc: 0.73 m/s MV E/A Ratio: 0.59 MV PHT: 43.08 ms MVA By PHT: 5.10 cm2 MV A Dur : 89.96 ms Septal e': 0.03 m/s Septal E/e': 21.69 Lateral e': 0.03 m/s Lateral E/e' : 19.47 MR ERO: 0.25 cm2 MR RV: 28.74 ml MR Vmax: 4.18 m/s MR VTI: 113.69 cm P Ve in A: 0.35 m/s P Vein A Dur: 134.94 ms P Vein D: 0.34 m/s P Vein S/D Ratio: 1.82 P Vein S: 0.62 m/s HR: 99.65 BPM PV maxP.89 mmHg PV meanP.75 mmHg PV Vmax: 0 .85 m/s PV Vmean: 0.62 m/s PV VTI: 14.43 cm RAP: 15 mmHg RVSP: 62.60 mmHg TR maxP.60 mmHg TR Vmax: 3.44 m/s TV A Mc: 0.93 m/s TV Dec Washita: 4.08 m/s2 TV Dec Time: 135.12 ms TV E Mc: 0.55 m/s TV E/A Ratio: 0.58 Cardiac Exercise Physiologist: LOLY Authenticated by: Christiano Guzman MD Report Date/Time: 05-01-2014 16:13:14 05/01/2014 1. Overall left ventricular systolic function is moderately impaired with, an EF between 30 - 40 %. 2. The left ventricle is markedly dilated. 3. mid anteroseptal - akinetic ; 4. apex - akinetic; 5. The left atrium is mildly dilated. 6. There is urer-hs-segibzoe a ortic regurgitation. 7. Mavx-cr-cuebhkry mitral regurgitation is present. 8. There is modera te pulmonary hypertension. 9. The right ventricular systolic pressure (pulmonary artery syst olic pressure), as measured by Doppler, is 62.61mmHg. 10. There is a small pericardial effus ion is located near the right ventricle. 11. There is no evidence of cardiac tamponade. Nm Cardiovascular Stress Treadmill 05/05/2014 This procedure was resulted in [place] (the cardiology system). Please see the Medi a tab in Chart Review to see the result for this procedure. PROBLEM LIST Principal Problem: *Dyspnea Active Problems: Hypoxia Orthopnea DM2 (diabetes mellitus, type 2) LEANNA (acute kidney injury) Elevated troponin Acute systolic CHF (congestive heart failure) Anemia, iron deficiency Vitamin D deficiency Acidosis, metabolic Hyponatremia Hyperphosphatemia ASSESSMENT & PLAN NM MYOCARDIAL PERFUSION SPECT - STRESS AND REST IMPRESSION: 1. Large infarct involving anterior, septal, and distal inferior wall with mild pretty-infarc t ischemia. 2. Left ventricular ejection fraction is calculated at 21%. 3. Dilated left ventricle. Nuc study Reviewed. No significant ischemia. Her CT is old. Reason for admission was anemia, no need for further cardia work up. Would benefit from bet a blockers for decreased LV function. Electronically signed by Leandro Terrell MD at Ms. Hawkins is a 83 y.o. 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 Lab Results Component Value Date BUN 53* 05/06/2014 BUN 56* 05/05/2014 BUN 50* 05/04/2014 CREATININE 1.85* 05/06/2014 CREATININE 2.27* 05/05/2014 CREATININE 2.20* 05/04/2014 EGFR 28* 05/06/2014 EGFR 22* 05/05/2014 EGFR 23* 05/04/2014 Echo Cardiac Adult Complete 05/01/2014 1. Overall left ventricular systolic function is moderately impaired with, an EF b etween 30 - 40 %. 2. The left ventricle is markedly dilated. 3. mid anteroseptal - akinetic; 4. apex - akinetic; 5. The left atrium is mildly dilated. 6. There is xdti-hc-qwwerojl aort ic regurgitation. 7. Qhck-uo-nicyqbpb mitral regurgitation is present. 8. There is moderate pulmonary hypertension. 9. The right ventricular systolic pressure (pulmonary artery systoli c pressure), as measured by Doppler, is 62.61mmHg. 10. There is a small pericardial effusion is located near the right ventricle. 11. There is no evidence of cardiac tamponade. NSTEMI D/Nate IV LASIX D/W DR WHITE lasix 20mg QD PO OK Assessment: Hemodynamically stable. Renal function most likely with CKD stage 3 with some component of acute injury with decomp ensated systolic CHF, anemia, and NSTEMI. Creatinine stable. HBA1C noted to be 7.5 consistent with untreated DM2. Proteinuria work up with negative Hepatitis panel, negative YAMILETH, normal ,C3 and C4. FLC rat io normal. Hypertension well controlled. Clinically and radiologically volume overloaded with no lower extremity edema, but with JVD , orthopnea. PO4 borderline high with renal insufficiency and reduced renal clearance.Started on PO renv narcisa. Vitamin D deficiency noted. Started On PO replacement. Marked Fe deficiency anemia noted and would need age appropriate GI work up with EGD/colono scopy to exclude GI loss. Transfused PRBC (unable to tolerate IV Fe) and Hb rise appropriate . Recommendations Diuresed with IV lasix for decompensated systolic CHF.STOPPED dose to 5 mg/hr.Strict 1.5 L fluid restriction. Lasix 20 mg daily by mouth at this time No SURESH/ARB for now. Reassess kidney function after diuresis and completion of work up to see what her baseline creatinine is. Regardless with history of smoking and with longstanding untreated DM2 likely has CKD which would increase her risk of IZZY. No IVF. Cont. vitamin D replacement, renvela, and sodium bicarbonate. 2 gm Na, 2 gm K, 1 gm PO4, 1 gm/kg protein diet. Please dose all medications per eGFR Pt to AVOID NSAID,TROY II inhibitors,IV Contrast and Nephrotoxic Antibiotics Fluid restriction 1.5 L in 24 hr period. Strict I/O (ortega catheter may be placed for accurate estimation). Daily CMP (including Mg, PO4). D/W DR WHITE ??COREG Time spend over 35 minutes of time spent evaluating the patient, reviewing the data, formul ating a plan and discussion with patient and hospitalist team, more than half of the time sp ent in counseling and coordination of care. HORTENSIA PATEL MD 05/06/2014 Tracy, Yoel santizo MD - 05/05/2014 12:00 PM PDTFormatting of this note might be different from the origi nal. Progress Notes by Aylin White MD at 05/05/14 1200 Author: Aylin White MD Service: Hospitalist Author Type: Physician Filed: 05/05/14 1389 Date of Service: 05/05/14 1200 Status: Signed Prop Maker: Aylin White MD (Physician) [facility] Service: Hospitalist Progress Note Hospital Day: LOS: 4 days Chief Complaint: Shortness of breath SUBJECTIVE Events Overnight: Patient is feeling much better. She passed a bowel movement today. She had a stress test done. Denies any significant shortness of breath, chest pain, nausea, vomiting, abdominal p ain. Scheduled Medications aspirin 325 mg Oral Daily with breakfast cholecalciferol 1,000 Units Oral Daily ergocalciferol 50,000 Units Oral Weekly ferrous sulfate (65 FE) 65 mg of iron Oral TID WC furosemide 20 mg Oral Daily heparin (porcine) 5,000 Units Subcutaneous Q8H ROXANE insulin aspart 0-3 Units Subcutaneous Nightly insulin aspart 0-6 Units Subcutaneous TID AC insulin detemir 10 Units Subcutaneous Nightly metoprolol 25 mg Oral BID senna-docusate 1 tablet Oral BID sevelamer 800 mg Oral TID WC simvastatin 20 mg Oral Nightly sodium bicarbonate 648 mg Oral TID sodium chloride 10 mL Intravenous Q8H Continuous Infusions dextrose [DISCONTINUED] furosemide (LASIX) infusion Stopped (05/04/142122) PRN Medications acetaminophen, acetaminophen, dextrose, dextrose, dextrose, glucagon, glucagon, heparin (po rcine), heparin (porcine), ondansetron, ondansetron, polyethylene glycol, [COMPLETED] regade noson, zolpidem OBJECTIVE Vital Signs: BP 111/57 | Pulse 82 | Temp 98.1 F (36.7 C) (Oral) | Resp 18 | Ht 1.499 m (4' 11") | Wt 56.4 kg (124 lb 5.4 oz) | BMI 25.10 kg/m2 | SpO2 96% | ? No Filed Vitals: 05/04/14 2329 05/05/14 0336 05/05/14 0713 05/05/14 1152 BP: 111/53 113/58 107/57 111/57 Pulse: 76 78 76 82 Temp: 98 F (36.7 C) 98.3 F (36.8 C) 97.7 F (36.5 C) 98.1 F (36.7 C) TempSrc: Oral Oral Oral Oral Resp: 20 20 18 18 Height: Weight: 56.4 kg (124 lb 5.4 oz) SpO2: 97% 96% 95% 96% Intake/Output Summary (Last 24 hours) at 05/05/14 1200 Last data filed at 05/05/14 0629 Gross per 24 hour Intake 672 ml Output 2875 ml Net -2203 ml General: Comfortable HEENT: No thrush. Neck: No JVD, Trachea midline. Psych: Alert and oriented x 3. Calm, cooperative. Cardiovascular: Regular rate and rhythm, no murmurs, no palpable thrills. Normal PMI. Respiratory: Decreased breath sounds at bases. no wheezing or crackles, breathing non labo red. Chest expansion equal on both sides. No use of accessory muscles. Gastrointestinal: Soft, non-tender, non-distended, positive bowel sounds. No HSM. Musculoskeletal: No edema in bilateral lower extremities. No joint swelling. Skin: foot diabetes skin lesions? Not infected. Neurological: Higher functions grossly normal. Non focal. Motor and sensory grossly intact. Normal co-ordination. DATA Lab 05/05/1441405/04/1445605/03/14 0354 WBC 9.4 10.6 11.3* HGB 11.1* 10.6* 10.1* HCT 33.3* 32.2* 30.8* PLT 246 228 218 NEUTOPHILPCT 70.6 71.7 72.6 MONOPCT 8.7 9.2 7.2 Lab 05/05/145 05/04/14 0457 05/03/14 0354 NA 134* 136 132* K 3.4* 3.9 4.8 CL 97* 102 105 CO2 28 26 20* BUN 56* 50* 47* CREATININE 2.27* 2.20* 2.15* CALCIUM -- -- -- PROT 6.6 6.4 6.5 BILITOT 0.3 0.4 0.6 ALKPHOS -- -- -- ALT 8* 6* 10 AST 10 8* 11 GLUCOSE -- -- -- Phosphorus: Lab Results Component Value Date PHOS 4.4 05/05/2014 No components found with this basename: LABALBU:3 Lab 05/05/14 0415 05/04/14 0457 05/03/14 0354 MG 2.2 2.0 2.3 No results found for this basename: AMYLASE:3 in the last 168 hours No results found for this basename: PHART:3,PO2ART:3,QHY1AFX:3,Y0WVYOVG:3,BEART:[address] 168 hours Lab 05/02/14 0724 05/02/14 0111 05/01/14 1010 APTT 30 28 24 INR -- -- 1.0 PTT -- -- -- No results found for this basename: TSH:3,T3FREE:3,FREET4:3 in the last 168 hours Lab 05/02/14 0811 05/01/14 1503 05/01/14 1010 CKTOTAL 101 97 96 TROPONINI 1.83* 1.65* -- TROPONINT -- -- -- CKMBINDEX 4.3 5.6 5.2 Results No Results found for the last 72 hours. Xr Chest 2 View 05/01/2014 ALEXSANDRA HAWKINS 1930 83 years Female XR CHEST 2 VIEW FRONTAL AND LATERAL 05/01/2014 11:56 AM INDICATION: Shortness of breath COMPARISON: None. TECHNIQUE: Two view [place] [address], [place] and lateral views FINDINGS: There is moderate enlargement of the cardiac silhouette. There is no widening or shift of the mediastinum. There is no pneumothorax. The costophreni c angle is blunted bilaterally suggestive of some pleural fluid. Moderate degenerative disc disease and osteopenia is present with several chronic appearing wedge deformities throughou t the thoracic and lumbar spine. The vasculature is mildly distended with slightly increased hazy reticular markings throughout the lung. 05/01/2014 1. Imaging findings concerning for pulmonary edema. Echo Cardiac Adult Complete 05/01/2014 Patient Name: ALEXSANDRA HAWKINS Date of : 1930 Performing Physician: Christiano Guzman MD INDICATIONS CHF CONCLUSIONS 1. Overall left ventricula r systolic function is moderately impaired with, an EF between 30 - 40 %. 2. The left ventri americo is markedly dilated. 3. mid anteroseptal - akinetic; 4. apex - akinetic; 5. The left a trium is mildly dilated. 6. There is htya-yo-xdbprszs aortic regurgitation. 7. Sdpr-vp-engqd ate mitral regurgitation is present. 8. There is moderate pulmonary hypertension. 9. The rig ht ventricular systolic pressure (pulmonary artery systolic pressure), as measured by Dopple r, is 62.61mmHg. 10. There is a small pericardial effusion is located near the right ventric le. 11. There is no evidence of cardiac tamponade. FINDINGS -------- ECG rhythm: Sinus rhyt hm with extra systolic beats. Study: A 2-dimensional transthoracic echocardiogram with m-mod e, spectral and color flow Doppler was perfomed. Study: This was a technically adequate tha dy. Left Ventricle: Overall left ventricular systolic function is moderately impaired with, an EF between 30 - 40 %. Left Ventricle: The left ventricle is markedly dilated. Left Vent ricle: Left ventricular wall thickness is normal. Left Ventricle: mid anteroseptal - akinet ic; Left Ventricle: apex - akinetic; Right Ventricle: The right ventricle is normal in si ze. Left Atrium: The left atrium is mildly dilated. Right Atrium: The right atrial size is n ormal. Aortic Valve: The aortic valve was not well visualized. Aortic Valve: The aortic louis ve is mildly calcified. Aortic Valve: There is vuyh-bz-hpjspdin aortic regurgitation. Aort ic Valve: There is no evidence of significant aortic stenosis. Mitral Valve: The mitral louis ve is normal. Mitral Valve: Oazd-ia-lsfwtpig mitral regurgitation is present. Mitral Valve : Moderate mitral annular calcification present. Mitral Valve: Mild thickening of the anter ior mitral valve leaflet. Mitral Valve: There is mild thickening of the posterior mitral va lve leaflet. Tricuspid Valve: The tricuspid valve appears structurally normal. Tricuspid Va lve: Bbvq-gb-shlqggmj tricuspid regurgitation present. Tricuspid Valve: There is moderate p ulmonary hypertension. Tricuspid Valve: The right ventricular systolic pressure (pulmonary artery systolic pressure), as measured by Doppler, is 62.61mmHg. Pulmonic Valve: The pulmoni c valve was not well visualized. Pericardium: There is a small pericardial effusion is locat ed near the right ventricle. Pericardium: There is no evidence of cardiac tamponade. IVC/He patic Veins: The IVC is normal size (1.5-2.5cm) and collapses <50% with sniff, consistent wi th central venous pressures of 10-15mmHg. MEASUREMENTS IVC: 2.09 cm LA Marcia r: 5.82 cm LVOT Diam: 1.79 cm RA Major: 4.51 cm RVIDd: 3.11 cm LVEF MOD A4C: 23.06 % SV MOD A4C: 24.01 ml LVEDV MOD A4C: 104.12 ml LVLd A4C: 8.32 cm LVESV MOD A4C: 80 .11 ml LVLs A4C: 7.57 cm LAEDV(A-L): 71.18 ml LAEDV Index (A-L): 48.42 ml/m2 LAAd A2C: 18.54 cm2 LAEDV A-L A2C: 58.33 ml LAEDV MOD A2C: 55.18 ml LALd A2C: 5.00 cm LAAd A4 C: 22.63 cm2 LAEDV A-L A4C: 72.64 ml LAEDV MOD A4C: 66.83 ml LALd A4C: 5.98 cm MR Fl ow: 105.73 ml/s MR Rad: 0.66 cm MR Als.Mc: 0.37 m/s Ao Diam: 3.13 cm AV Cusp: 1.5 1 cm LA Diam: 3.87 cm LA/Ao: 1.23 %FS: 25.64 % EDV(Teich): 231.10 ml EF(Teich): 4 9.31 % ESV(Teich): 117.12 ml IVSd: 0.68 cm IVSs: 0.92 cm LVIDd: 6.69 cm LVIDs: 4.9 7 cm LVPWd: 0.92 cm LVPWs: 1.37 cm SV(Teich): 113.97 ml D-E Excursion: 1.44 cm E-F S vinny: 0.05 m/s EPSS: 1.21 cm AR Dec [place]: 1.60 m/s2 AR Dec Time: 1757.97 ms AR maxP .96 mmHg AR PHT: 509.81 ms AR Vmax: 2.82 m/s HR: 66.94 BPM AR maxP.20 mm Hg AR meanP.96 mmHg AR Vmax: 2.55 m/s AR Vmean: 2.15 m/s AR VTI: 129.70 cm ARen d P.29 mmHg ARend Vmax: 2.11 m/s HR: 96.87 BPM AV maxP.97 mmHg AV meanP.13 mmHg AV Vmax: 1.22 m/s AV Vmean: 0.83 m/s AV VTI: 23.32 cm SANDOVAL Vmax: 1.90 cm2 SANDOVAL (VTI): 1.87 cm2 LVCI Dopp: 2.90 l/minm2 LVCO Dopp: 4.27 l/min HR: 97.96 BPM LVOT maxP.38 mmHg LVOT meanP.00 mmHg LVSI Dopp: 29.68 ml/m2 LVSV Dopp: 43.64 ml LVOT Vmax: 0.92 m/s LVOT Vmean: 0.67 m/s LVOT VTI: 17.27 cm MCO: 321.79 ms MR maxP.39 mmHg MR meanP.15 mmHg MR Vmax: 3.29 m/s MR Vmean: 2.56 m/s MR VTI: 73. 68 cm MR maxP.16 mmHg MR Vmax: 3.94 m/s MV A Mc: 1.23 m/s MV DecT: 147.26 ms M V E Mc: 0.73 m/s MV E/A Ratio: 0.59 MV PHT: 43.08 ms MVA By PHT: 5.10 cm2 MV A Dur : 89.96 ms Septal e': 0.03 m/s Septal E/e': 21.69 Lateral e': 0.03 m/s Lateral E/e' : 19.47 MR ERO: 0.25 cm2 MR RV: 28.74 ml MR Vmax: 4.18 m/s MR VTI: 113.69 cm P Ve in A: 0.35 m/s P Vein A Dur: 134.94 ms P Vein D: 0.34 m/s P Vein S/D Ratio: 1.82 P Vein S: 0.62 m/s HR: 99.65 BPM PV maxP.89 mmHg PV meanP.75 mmHg PV Vmax: 0 .85 m/s PV Vmean: 0.62 m/s PV VTI: 14.43 cm RAP: 15 mmHg RVSP: 62.60 mmHg TR maxP.60 mmHg TR Vmax: 3.44 m/s TV A Mc: 0.93 m/s TV Dec [place]: 4.08 m/s2 TV Dec Time: 135.12 ms TV E Mc: 0.55 m/s TV E/A Ratio: 0.58 Cardiac Exercise Physiologist: LOLY Authenticated by: Christiano Guzman MD Report Date/Time: 05-01-2014 16:13:14 05/01/2014 1. Overall left ventricular systolic function is moderately impaired with, an EF between 30 - 40 %. 2. The left ventricle is markedly dilated. 3. mid anteroseptal - akinetic ; 4. apex - akinetic; 5. The left atrium is mildly dilated. 6. There is helg-yt-hsxpgsmd a ortic regurgitation. 7. Qwys-vy-hejuxbwb mitral regurgitation is present. 8. There is modera te pulmonary hypertension. 9. The right ventricular systolic pressure (pulmonary artery syst olic pressure), as measured by Doppler, is 62.61mmHg. 10. There is a small pericardial effus ion is located near the right ventricle. 11. There is no evidence of cardiac tamponade. PROBLEM LIST Principal Problem: *Dyspnea Active Problems: Hypoxia Orthopnea DM2 (diabetes mellitus, type 2) LEANNA (acute kidney injury) Elevated troponin Acute systolic CHF (congestive heart failure) Anemia, iron deficiency Vitamin D deficiency Acidosis, metabolic Hyponatremia Hyperphosphatemia ASSESSMENT/ PLAN Dyspnea: This is likely secondary to acute systolic congestive heart failure. Patient seen by Dr. Terrell. We have started this patient on aspirin, metoprolol, statin. 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 Stress test was done today. Reviewed by cardiology. Patient has been on a Lasix drip and has improved significantly. Lasix drip was stopped ye day. Discussed case with hatchery manager, plan to order Lasix 20 mg daily. Acute kidney injury: Nephrology is following. Ultrasound kidneys do not show hydronephrosis . Diabetes mellitus. Blood sugars reasonably controlled. Continue Levemir and insulin slidi ng scale. Hemoglobin A1c 7.5. Anemia: Iron deficiency anemia. Status post 2 unit of packed RBC transfusions. Hemoglobin is stable now . Continue iron replacement. Occult blood test has been positive in the stool. Consulted gastroenterology, zulma Craig patient will need to be on aspirin after discharge. Hyperkalemia: Resolved. Now hypokalemia we will replete with oral potassium. DVT prophylaxis: Heparin discontinued because of positive stool occult blood test. Ordered labs for tomorrow. Code Status: Full Code Aylin White MD 05/05/201412:00 PM Chart Correction History Action User Date/Time Reason Details Note Type Change Him Admin Close 2 06/26/14 0808 Changed from H&P. Maria G Dillon MD - 05/05/2014 11:47 AM PDTFormatting of this note might be different fro m the original. Progress Notes by Leandro Terrell MD at 05/05/14 1147 Author: Leandro Terrell MD Service: (none) Author Type: Physician Filed: 05/05/14 1148 Date of Service: 05/05/14 1147 Status: Signed Prop Maker: Leandro Terrell MD (Physician) Nuc study Reviewed. No significant ischemia. Her CT is old. Reason for admission was anemia, no need for further cardia work up. Would benefit from bet a blockers for decreased LV function. Rula Dillon MD - 05/05/2014 11:35 AM PDT Progress Notes by Leandro Terrell MD at 05/05/14 1135 Author: Leandro Terrell MD Service: (none) Author Type: Physician Filed: 05/05/146 Date of Service: 05/05/14 1135 Status: Signed Prop Maker: Leandro Terrell MD (Physician) Feels well. VSS. Hgb 11.1 today. Creatinine stable. Nuc test today, await results. Arlyn Avery MD - 05/05/2014 10:12 AM PDTFormatting of this note might be different from the origi nal. Progress Notes by Hortensia Patel MD at 05/05/14 1012 Author: Hortensia Patel MD Service: Nephrology Author Type: Physician Filed: 05/05/141958 Date of Service: 05/05/14 1012 Status: Signed Prop Maker: Hortensia Patel MD (Physician) [facility] Service: NEPHROLOGY Progress Note Alexsandra Hawkins 83 y.o. [id number] female [facility] Day: LOS: 4 days SUBJECTIVE Patient seen and examined. ADMITTED WITH Dyspnea ADMITTED WITH Dyspnea Alexsandra Hawkins is a 83 y.o. female followed for renal insufficiency in setting of decompen sated CHF (systolic). Interval history: Alexsandra Hawkins feels 'OK' today. No fever, chills sweats. No nausea, vomiting or diarrhea. + shortness or breath, but no chest pain, cough. No dysuria, urgency, frequency, gross hematuria, urinary hesitancy. ROS: As in History of Present Illness. 7 area ROS was done and was otherwise negative. 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 Family History Problem Relation Age of Onset Heart disease Neg Hx Diabetes Daughter Scheduled Medications aspirin 325 mg Oral Daily with breakfast cholecalciferol 1,000 Units Oral Daily ergocalciferol 50,000 Units Oral Weekly ferrous sulfate (65 FE) 65 mg of iron Oral TID WC heparin (porcine) 5,000 Units Subcutaneous Q8H ROXANE insulin aspart 0-3 Units Subcutaneous Nightly insulin aspart 0-6 Units Subcutaneous TID AC insulin detemir 10 Units Subcutaneous Nightly metoprolol 25 mg Oral BID senna-docusate 1 tablet Oral BID sevelamer 800 mg Oral TID WC simvastatin 20 mg Oral Nightly sodium bicarbonate 648 mg Oral TID sodium chloride 10 mL Intravenous Q8H Continuous Infusions dextrose [DISCONTINUED] furosemide (LASIX) infusion Stopped (05/04/142122) PRN Medications acetaminophen, acetaminophen, dextrose, dextrose, dextrose, glucagon, glucagon, heparin (po rcine), heparin (porcine), ondansetron, ondansetron, polyethylene glycol, [COMPLETED] regade noson, zolpidem Allergy: No Known Allergies OBJECTIVE Vital Signs: BP 107/57 | Pulse 78 | Temp 97.7 F (36.5 C) (Oral) | Resp 18 | Ht 1.499 m (4' 11") | Wt 56.4 kg (124 lb 5.4 oz) | BMI 25.10 kg/m2 | SpO2 95% | ? No I&O Detailed Table: I/O last 3 completed shifts: In: 935 [P.O.:650; I.V.:285] Out: 7050 [Urine:7050] Weight change: Hemodynamics Last 24hrs: Examination: APPEARANCE: short of breath, but better. VITALS: Reviewed as listed. HEENT: EOMI. Non-icteric sclera.+ JVD LYMPHATIC: No palpable lymphadenopathy. LUNGS: Basal occ rales. HEART: S1 soft. No S3 .No murmur. ABDOMEN: Soft, no tenderness. Bowel sounds present. No organomegaly or bruits. EXTREMITIES: No LE edema. No cyanosis or clubbing. SKIN: Warm to touch. Circular hyperpigmented lesions on both feet. NEUROLOGIC: No gross focal motor deficit. PSYCH: Alert and oriented x 3, mood and affect ok, BACK: No CVA tenderness. No sacral edema. LABS: IRON: Lab Results Component Value Date IRON 65 05/02/2014 Lab Results Component Value Date FERRITIN 7 05/02/2014 LABIRON 16 05/02/2014 CBC: Lab Results Component Value Date WBC 9.4 05/05/2014 RBC 4.39 05/05/2014 HGB 11.1* 05/05/2014 HCT 33.3* 05/05/2014 MCV 75.9* 05/05/2014 MCH 25.3* 05/05/2014 MCHC 33.3 05/05/2014 RDW 44.6 05/05/2014 PLT 246 05/05/2014 MPV 9.2 05/05/2014 DIFFTYPE AUTOMATED 05/05/2014 CMP: Lab Results Component Value Date NA 134* 05/05/2014 K 3.4* 05/05/2014 CL 97* 05/05/2014 CO2 28 05/05/2014 ANIONGAP 12 05/05/2014 GLUF 120* 05/05/2014 BUN 56* 05/05/2014 CREATININE 2.27* 05/05/2014 BCR 25 05/05/2014 CA 8.2* 05/05/2014 CA 7.7* 05/02/2014 PROT 6.6 05/05/2014 ALB 3.4 05/05/2014 GLOB 3.2 05/05/2014 BILITOT 0.3 05/05/2014 ALP 85 05/05/2014 AST 10 05/05/2014 ALT 8* 05/05/2014 EGFR 22* 05/05/2014 Magnesium: Lab Results Component Value Date MG 2.2 05/05/2014 Phosphorus: Lab Results Component Value Date PHOS 4.4 05/05/2014 PT/INR: Lab Results Component Value Date INR 1.0 05/01/2014 Troponin: Lab Results Component Value Date TROPONINI 1.83* 05/02/2014 Lab Results Component Value Date PTHINTACT 93* 05/02/2014 [id number] <12* 05/02/2014 Lab Results Component Value Date [id number] 263 05/02/2014 Lab Results Component Value Date URICACID 8.1* 05/02/2014 Lab Results Component Value Date HGBA1C 7.* 05/02/2014 IMAGING NM MYOCARDIAL PERFUSION SPECT - STRESS AND REST HISTORY: 83 years. Female. Shortness of breath and elevated troponins. TECHNIQUE: A same day protocol was used. For the resting portion of the study the patient was injected intravenously with 10 mCi technetium 99m Myoview. Gated SPECT imaging was performed in the supine position. The patient was then pharmacologically stressed using a regadenoson protocol. The patient r eceived 0.4 mg of regadenoson intravenously. The patient was intravenously administered 40 m Ci technetium 99m Myoview. Gated SPECT images were acquired in the prone and supine position s. COMPARISON: None. FINDINGS: Large area of decreased perfusion involving the mid and distal anterior wall, mid and dista l septal wall, and distal aspect of the inferior wall on both supine stress and rest images that is mildly greater on supine stress and rest images. Findings are felt to represent infa rct with mild pretty-infarct ischemia. Akinesia within the mid and distal anterior and septal gaytan with mild paradoxical wall motion. STRESS: End-diastolic volume: 138 mL End-systolic volume: 109 mL Ejection fraction: 21% REST: End-diastolic volume: 142 mL End-systolic volume: 122 mL Ejection fraction: 14% IMPRESSION: 1. Large infarct involving anterior, septal, and distal inferior wall with mild pretty-infarc t ischemia. 2. Left ventricular ejection fraction is calculated at 21%. 3. Dilated left ventricle. Xr Chest 2 View 05/01/2014 ALEXSANDRA HAWKINS 1930 83 years Female XR CHEST 2 VIEW FRONTAL AND LATERAL 05/01/2014 11:56 AM INDICATION: Shortness of breath COMPARISON: None. TECHNIQUE: Two view [place], [place] and lateral views FINDINGS: There is moderate enlargement of the cardiac silhouette. There is no widening or shift of the mediastinum. There is no pneumothorax. The costophreni c angle is blunted bilaterally suggestive of some pleural fluid. Moderate degenerative disc disease and osteopenia is present with several chronic appearing wedge deformities throughou t the thoracic and lumbar spine. The vasculature is mildly distended with slightly increased hazy reticular markings throughout the lung. 05/01/2014 1. Imaging findings concerning for pulmonary edema. Ultrasound Kidneys And Bladder 05/02/2014 ALEXSANDRA HAWKINS KIDNEYS AND BLADDER HISTORY: 83 years. Female. Chronic kidney disease. TECHNIQUE: Sonographic evaluation of the kidneys and bladder was performed. COMP JAMAL: None. FINDINGS: The right kidney measures 9.4 x 4.8 x 4.5 cm. The left kidney measu res 10.2 x 5.4 x 4.8 cm. The kidneys have a normal cortical echotexture without evidence of hydronephrosis. The bladder is completely empty. The patient voided prior to imaging. 05/02/2014 1. Unremarkable renal ultrasound. Echo Cardiac Adult Complete 05/01/2014 Patient Name: ALEXSANDRA HAWKINS Date of : 1930 Performing Physician: Christiano Guzman MD INDICATIONS CHF CONCLUSIONS 1. Overall left ventricula r systolic function is moderately impaired with, an EF between 30 - 40 %. 2. The left ventri americo is markedly dilated. 3. mid anteroseptal - akinetic; 4. apex - akinetic; 5. The left a trium is mildly dilated. 6. There is hety-xj-vowcztbe aortic regurgitation. 7. Sjrs-ta-vxngk ate mitral regurgitation is present. 8. There is moderate pulmonary hypertension. 9. The rig ht ventricular systolic pressure (pulmonary artery systolic pressure), as measured by Dopple r, is 62.61mmHg. 10. There is a small pericardial effusion is located near the right ventric le. 11. There is no evidence of cardiac tamponade. FINDINGS -------- ECG rhythm: Sinus rhyt hm with extra systolic beats. Study: A 2-dimensional transthoracic echocardiogram with m-mod e, spectral and color flow Doppler was perfomed. Study: This was a technically adequate tha dy. Left Ventricle: Overall left ventricular systolic function is moderately impaired with, an EF between 30 - 40 %. Left Ventricle: The left ventricle is markedly dilated. Left Vent ricle: Left ventricular wall thickness is normal. Left Ventricle: mid anteroseptal - akinet ic; Left Ventricle: apex - akinetic; Right Ventricle: The right ventricle is normal in si ze. Left Atrium: The left atrium is mildly dilated. Right Atrium: The right atrial size is n ormal. Aortic Valve: The aortic valve was not well visualized. Aortic Valve: The aortic louis ve is mildly calcified. Aortic Valve: There is cqdy-lo-cxorwwrs aortic regurgitation. Aort ic Valve: There is no evidence of significant aortic stenosis. Mitral Valve: The mitral louis ve is normal. Mitral Valve: Dodl-qc-iszpzoea mitral regurgitation is present. Mitral Valve : Moderate mitral annular calcification present. Mitral Valve: Mild thickening of the anter ior mitral valve leaflet. Mitral Valve: There is mild thickening of the posterior mitral va lve leaflet. Tricuspid Valve: The tricuspid valve appears structurally normal. Tricuspid Va lve: Nmty-nw-osjqjotp tricuspid regurgitation present. Tricuspid Valve: There is moderate p ulmonary hypertension. Tricuspid Valve: The right ventricular systolic pressure (pulmonary artery systolic pressure), as measured by Doppler, is 62.61mmHg. Pulmonic Valve: The pulmoni c valve was not well visualized. Pericardium: There is a small pericardial effusion is locat ed near the right ventricle. Pericardium: There is no evidence of cardiac tamponade. IVC/He patic Veins: The IVC is normal size (1.5-2.5cm) and collapses <50% with sniff, consistent wi th central venous pressures of 10-15mmHg. MEASUREMENTS IVC: 2.09 cm LA Marcia r: 5.82 cm LVOT Diam: 1.79 cm RA Major: 4.51 cm RVIDd: 3.11 cm LVEF MOD A4C: 23.06 % SV MOD A4C: 24.01 ml LVEDV MOD A4C: 104.12 ml LVLd A4C: 8.32 cm LVESV MOD A4C: 80 .11 ml LVLs A4C: 7.57 cm LAEDV(A-L): 71.18 ml LAEDV Index (A-L): 48.42 ml/m2 LAAd A2C: 18.54 cm2 LAEDV A-L A2C: 58.33 ml LAEDV MOD A2C: 55.18 ml LALd A2C: 5.00 cm LAAd A4 C: 22.63 cm2 LAEDV A-L A4C: 72.64 ml LAEDV MOD A4C: 66.83 ml LALd A4C: 5.98 cm MR Fl ow: 105.73 ml/s MR Rad: 0.66 cm MR Als.Mc: 0.37 m/s Ao Diam: 3.13 cm AV Cusp: 1.5 1 cm LA Diam: 3.87 cm LA/Ao: 1.23 %FS: 25.64 % EDV(Teich): 231.10 ml EF(Teich): 4 9.31 % ESV(Teich): 117.12 ml IVSd: 0.68 cm IVSs: 0.92 cm LVIDd: 6.69 cm LVIDs: 4.9 7 cm LVPWd: 0.92 cm LVPWs: 1.37 cm SV(Teich): 113.97 ml D-E Excursion: 1.44 cm E-F S vinny: 0.05 m/s EPSS: 1.21 cm AR Dec [place]: 1.60 m/s2 AR Dec Time: 1757.97 ms AR maxP .96 mmHg AR PHT: 509.81 ms AR Vmax: 2.82 m/s HR: 66.94 BPM AR maxP.20 mm Hg AR meanP.96 mmHg AR Vmax: 2.55 m/s AR Vmean: 2.15 m/s AR VTI: 129.70 cm ARen d P.29 mmHg ARend Vmax: 2.11 m/s HR: 96.87 BPM AV maxP.97 mmHg AV meanP.13 mmHg AV Vmax: 1.22 m/s AV Vmean: 0.83 m/s AV VTI: 23.32 cm SANDOVAL Vmax: 1.90 cm2 SANDOVAL (VTI): 1.87 cm2 LVCI Dopp: 2.90 l/minm2 LVCO Dopp: 4.27 l/min HR: 97.96 BPM LVOT maxP.38 mmHg LVOT meanP.00 mmHg LVSI Dopp: 29.68 ml/m2 LVSV Dopp: 43.64 ml LVOT Vmax: 0.92 m/s LVOT Vmean: 0.67 m/s LVOT VTI: 17.27 cm MCO: 321.79 ms MR maxP.39 mmHg MR meanP.15 mmHg MR Vmax: 3.29 m/s MR Vmean: 2.56 m/s MR VTI: 73. 68 cm MR maxP.16 mmHg MR Vmax: 3.94 m/s MV A Mc: 1.23 m/s MV DecT: 147.26 ms M V E Mc: 0.73 m/s MV E/A Ratio: 0.59 MV PHT: 43.08 ms MVA By PHT: 5.10 cm2 MV A Dur : 89.96 ms Septal e': 0.03 m/s Septal E/e': 21.69 Lateral e': 0.03 m/s Lateral E/e' : 19.47 MR ERO: 0.25 cm2 MR RV: 28.74 ml MR Vmax: 4.18 m/s MR VTI: 113.69 cm P Ve in A: 0.35 m/s P Vein A Dur: 134.94 ms P Vein D: 0.34 m/s P Vein S/D Ratio: 1.82 P Vein S: 0.62 m/s HR: 99.65 BPM PV maxP.89 mmHg PV meanP.75 mmHg PV Vmax: 0 .85 m/s PV Vmean: 0.62 m/s PV VTI: 14.43 cm RAP: 15 mmHg RVSP: 62.60 mmHg TR maxP.60 mmHg TR Vmax: 3.44 m/s TV A Mc: 0.93 m/s TV Dec [place]: 4.08 m/s2 TV Dec Time: 135.12 ms TV E Mc: 0.55 m/s TV E/A Ratio: 0.58 Cardiac Exercise Physiologist: LOLY Authenticated by: Christiano Guzman MD Report Date/Time: 05-01-2014 16:13:14 05/01/2014 1. Overall left ventricular systolic function is moderately impaired with, an EF between 30 - 40 %. 2. The left ventricle is markedly dilated. 3. mid anteroseptal - akinetic ; 4. apex - akinetic; 5. The left atrium is mildly dilated. 6. There is jijq-kx-beigrnbe a ortic regurgitation. 7. Xpmw-zd-tprvmqud mitral regurgitation is present. 8. There is modera te pulmonary hypertension. 9. The right ventricular systolic pressure (pulmonary artery syst olic pressure), as measured by Doppler, is 62.61mmHg. 10. There is a small pericardial effus ion is located near the right ventricle. 11. There is no evidence of cardiac tamponade. Nm Cardiovascular Stress Treadmill 05/05/2014 This procedure was resulted in [place] (the cardiology system). Please see the Medi a tab in Chart Review to see the result for this procedure. PROBLEM LIST Principal Problem: *Dyspnea Active Problems: Hypoxia Orthopnea DM2 (diabetes mellitus, type 2) LEANNA (acute kidney injury) Elevated troponin Acute systolic CHF (congestive heart failure) Anemia, iron deficiency Vitamin D deficiency Acidosis, metabolic Hyponatremia Hyperphosphatemia ASSESSMENT & PLAN NM MYOCARDIAL PERFUSION SPECT - STRESS AND REST IMPRESSION: 1. Large infarct involving anterior, septal, and distal inferior wall with mild pretty-infarc t ischemia. 2. Left ventricular ejection fraction is calculated at 21%. 3. Dilated left ventricle. Nuc study Reviewed. No significant ischemia. Her CT is old. Reason for admission was anemia, no need for further cardia work up. Would benefit from bet a blockers for decreased LV function. Electronically signed by Leandro Terrell MD at Ms. Hawkins is a 83 y.o. 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 Lab Results Component Value Date BUN 56* 05/05/2014 BUN 50* 05/04/2014 BUN 47* 05/03/2014 CREATININE 2.27* 05/05/2014 CREATININE 2.20* 05/04/2014 CREATININE 2.15* 05/03/2014 EGFR 22* 05/05/2014 EGFR 23* 05/04/2014 EGFR 23* 05/03/2014 Echo Cardiac Adult Complete 05/01/2014 1. Overall left ventricular systolic function is moderately impaired with, an EF b etween 30 - 40 %. 2. The left ventricle is markedly dilated. 3. mid anteroseptal - akinetic; 4. apex - akinetic; 5. The left atrium is mildly dilated. 6. There is uocv-dw-zgfpdije aort ic regurgitation. 7. Vqwb-zv-vmjexktg mitral regurgitation is present. 8. There is moderate pulmonary hypertension. 9. The right ventricular systolic pressure (pulmonary artery systoli c pressure), as measured by Doppler, is 62.61mmHg. 10. There is a small pericardial effusion is located near the right ventricle. 11. There is no evidence of cardiac tamponade. NSTEMI D/Nate IV LASIX LAST NIGHT UO 7 L D/W DR WHITE lasix 20mg QD PO OK BP Readings from Last 3 Encounters: 05/05/14 107/57 Assessment: Hemodynamically stable. Renal function most likely with CKD stage 3 with some component of acute injury with decomp ensated systolic CHF, anemia, and NSTEMI. Creatinine stable. HBA1C noted to be 7.5 consistent with untreated DM2. Proteinuria work up with negative Hepatitis panel, negative YAMILETH, normal ,C3 and C4. FLC rat io normal. Hypertension well controlled. Clinically and radiologically volume overloaded with no lower extremity edema, but with JVD , orthopnea. PO4 borderline high with renal insufficiency and reduced renal clearance.Started on PO renv narcisa. Vitamin D deficiency noted. Started On PO replacement. Marked Fe deficiency anemia noted and would need age appropriate GI work up with EGD/colono scopy to exclude GI loss. Transfused PRBC (unable to tolerate IV Fe) and Hb rise appropriate . Recommendations Diuresed with IV lasix for decompensated systolic CHF.STOPPED dose to 5 mg/hr.Strict 1.5 L fluid restriction. Lasix 20 mg daily by mouth at this time No SURESH/ARB for now. Reassess kidney function after diuresis and completion of work up to see what her baseline creatinine is. Regardless with history of smoking and with longstanding untreated DM2 likely has CKD which would increase her risk of IZZY. No IVF. Cont. vitamin D replacement, renvela, and sodium bicarbonate. 2 gm Na, 2 gm K, 1 gm PO4, 1 gm/kg protein diet. Please dose all medications per eGFR Pt to AVOID NSAID,TROY II inhibitors,IV Contrast and Nephrotoxic Antibiotics Fluid restriction 1.5 L in 24 hr period. Strict I/O (ortega catheter may be placed for accurate estimation). Daily CMP (including Mg, PO4). D/W DAUGHTERS D/W DR WHITE ??COREG Time spend over 35 minutes of time spent evaluating the patient, reviewing the data, formul ating a plan and discussion with patient and hospitalist team, more than half of the time sp ent in counseling and coordination of care. HORTENSIA PATEL MD 05/05/2014 Becky Avery MD - 05/04/2014 11:21 AM PDTFormatting of this note might be different from the orig inal. Progress Notes by Hortensia Patel MD at 05/04/14 112 Author: Hortensia Patel MD Service: Nephrology Author Type: Physician Filed: 05/04/142039 Date of Service: 05/04/141120 Status: Signed Prop Maker: Hortensia Patel MD (Physician) [facility] Service: NEPHROLOGY Progress Note Alexsandra Hawkins 83 y.o. [id number] female [facility] Hospital Day: LOS: 3 days SUBJECTIVE Patient seen and examined. ADMITTED WITH Dyspnea Alexsandra Hawkins is a 83 y.o. female followed for renal insufficiency in setting of decompen sated CHF (systolic). Interval history: Alexsandra Hawkins feels 'OK' today. No fever, chills sweats. No nausea, vomiting or diarrhea. + shortness or breath, but no chest pain, cough. No dysuria, urgency, frequency, gross hematuria, urinary hesitancy. ROS: As in History of Present Illness. 7 area ROS was done and was otherwise negative. 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 Family History Problem Relation Age of Onset Heart disease Neg Hx Diabetes Daughter Scheduled Medications aspirin 325 mg Oral Daily with breakfast cholecalciferol 1,000 Units Oral Daily ergocalciferol 50,000 Units Oral Weekly ferrous sulfate (65 FE) 65 mg of iron Oral TID WC insulin aspart 0-3 Units Subcutaneous Nightly insulin aspart 0-6 Units Subcutaneous TID AC insulin detemir 10 Units Subcutaneous Nightly metoprolol 25 mg Oral BID senna-docusate 1 tablet Oral BID sevelamer 800 mg Oral TID WC simvastatin 20 mg Oral Nightly sodium bicarbonate 648 mg Oral TID sodium chloride 10 mL Intravenous Q8H Continuous Infusions dextrose furosemide (LASIX) infusion 15 mg/hr (05/04/14 0952) PRN Medications acetaminophen, acetaminophen, dextrose, dextrose, dextrose, glucagon, glucagon, heparin (po rcine), heparin (porcine), ondansetron, ondansetron, polyethylene glycol, zolpidem Allergy: No Known Allergies OBJECTIVE Vital Signs: BP 109/57 | Pulse 90 | Temp 98.3 F (36.8 C) (Oral) | Resp 18 | Ht 1.499 m (4' 11") | Wt 60.3 kg (132 lb 15 oz) | BMI 26.84 kg/m2 | SpO2 93% | ? No I&O Detailed Table: I/O last 3 completed shifts: In: 2805 [P.O.:1729; I.V.:1076] Out: 7275 [Urine:7275] Weight change: Hemodynamics Last 24hrs: Examination: APPEARANCE: short of breath, but better. VITALS: Reviewed as listed. HEENT: EOMI. Non-icteric sclera.+ JVD LYMPHATIC: No palpable lymphadenopathy. LUNGS: Basal few rales. HEART: S1 soft. No S3 .No murmur. ABDOMEN: Soft, no tenderness. Bowel sounds present. No organomegaly or bruits. EXTREMITIES: No LE edema. No cyanosis or clubbing. SKIN: Warm to touch. Circular hyperpigmented lesions on both feet. NEUROLOGIC: No gross focal motor deficit. PSYCH: Alert and oriented x 3, mood and affect ok, BACK: No CVA tenderness. No sacral edema. LABS: IRON: Lab Results Component Value Date IRON 65 05/02/2014 Lab Results Component Value Date FERRITIN 7 05/02/2014 LABIRON 16 05/02/2014 CBC: Lab Results Component Value Date WBC 10.6 05/04/2014 RBC 4.23 05/04/2014 HGB 10.6* 05/04/2014 HCT 32.2* 05/04/2014 MCV 76.3* 05/04/2014 MCH 25.0* 05/04/2014 MCHC 32.8 05/04/2014 RDW 44.6 05/04/2014 PLT 228 05/04/2014 MPV 8.9 05/04/2014 DIFFTYPE AUTOMATED 05/04/2014 CMP: Lab Results Component Value Date NA 136 05/04/2014 K 3.9 05/04/2014 CL 102 05/04/2014 CO2 26 05/04/2014 ANIONGAP 12 05/04/2014 GLUF 110* 05/04/2014 BUN 50* 05/04/2014 CREATININE 2.20* 05/04/2014 BCR 23 05/04/2014 CA 8.3* 05/04/2014 CA 7.7* 05/02/2014 PROT 6.4 05/04/2014 ALB 3.5 05/04/2014 GLOB 2.9 05/04/2014 BILITOT 0.4 05/04/2014 ALP 86 05/04/2014 AST 8* 05/04/2014 ALT 6* 05/04/2014 EGFR 23* 05/04/2014 Magnesium: Lab Results Component Value Date MG 2.0 05/04/2014 Phosphorus: Lab Results Component Value Date PHOS 4.7 05/04/2014 PT/INR: Lab Results Component Value Date INR 1.0 05/01/2014 Troponin: Lab Results Component Value Date TROPONINI 1.83* 05/02/2014 Lab Results Component Value Date PTHINTACT 93* 05/02/2014 [id number] <12* 05/02/2014 Lab Results Component Value Date [id number] 05/02/2014 Lab Results Component Value Date URICACID 8.1* 05/02/2014 Lab Results Component Value Date HGBA1C 7.5* 05/02/2014 IMAGING Xr Chest 2 View 05/01/2014 ALEXSANDRA HAWKINS 1930 83 years Female XR CHEST 2 VIEW FRONTAL AND LATERAL 05/01/2014 11:56 AM INDICATION: Shortness of breath COMPARISON: None. TECHNIQUE: Two view [place], [place] and lateral views FINDINGS: There is moderate enlargement of the cardiac silhouette. There is no widening or shift of the mediastinum. There is no pneumothorax. The costophreni c angle is blunted bilaterally suggestive of some pleural fluid. Moderate degenerative disc disease and osteopenia is present with several chronic appearing wedge deformities throughou t the thoracic and lumbar spine. The vasculature is mildly distended with slightly increased hazy reticular markings throughout the lung. 05/01/2014 1. Imaging findings concerning for pulmonary edema. Ultrasound Kidneys And Bladder 05/02/2014 ALEXSANDRA HAWKINS US KIDNEYS AND BLADDER HISTORY: 83 years. Female. Chronic kidney disease. TECHNIQUE: Sonographic evaluation of the kidneys and bladder was performed. COMP ARISON: None. FINDINGS: The right kidney measures 9.4 x 4.8 x 4.5 cm. The left kidney measu res 10.2 x 5.4 x 4.8 cm. The kidneys have a normal cortical echotexture without evidence of hydronephrosis. The bladder is completely empty. The patient voided prior to imaging. 05/02/2014 1. Unremarkable renal ultrasound. Echo Cardiac Adult Complete 05/01/2014 Patient Name: ALEXSANDRA HAWKINS Date of : 1930 Performing Physician: Christiano Guzman MD INDICATIONS CHF CONCLUSIONS 1. Overall left ventricula r systolic function is moderately impaired with, an EF between 30 - 40 %. 2. The left ventri americo is markedly dilated. 3. mid anteroseptal - akinetic; 4. apex - akinetic; 5. The left a trium is mildly dilated. 6. There is jfiu-ap-zvazxpeq aortic regurgitation. 7. Ffke-mt-owvuo ate mitral regurgitation is present. 8. There is moderate pulmonary hypertension. 9. The rig ht ventricular systolic pressure (pulmonary artery systolic pressure), as measured by Dopple r, is 62.61mmHg. 10. There is a small pericardial effusion is located near the right ventric le. 11. There is no evidence of cardiac tamponade. FINDINGS -------- ECG rhythm: Sinus rhyt hm with extra systolic beats. Study: A 2-dimensional transthoracic echocardiogram with m-mod e, spectral and color flow Doppler was perfomed. Study: This was a technically adequate tha dy. Left Ventricle: Overall left ventricular systolic function is moderately impaired with, an EF between 30 - 40 %. Left Ventricle: The left ventricle is markedly dilated. Left Vent ricle: Left ventricular wall thickness is normal. Left Ventricle: mid anteroseptal - akinet ic; Left Ventricle: apex - akinetic; Right Ventricle: The right ventricle is normal in si ze. Left Atrium: The left atrium is mildly dilated. Right Atrium: The right atrial size is n ormal. Aortic Valve: The aortic valve was not well visualized. Aortic Valve: The aortic louis ve is mildly calcified. Aortic Valve: There is pqsx-uz-agtnxabz aortic regurgitation. Aort ic Valve: There is no evidence of significant aortic stenosis. Mitral Valve: The mitral louis ve is normal. Mitral Valve: Szet-py-bktgswha mitral regurgitation is present. Mitral Valve : Moderate mitral annular calcification present. Mitral Valve: Mild thickening of the anter ior mitral valve leaflet. Mitral Valve: There is mild thickening of the posterior mitral va lve leaflet. Tricuspid Valve: The tricuspid valve appears structurally normal. Tricuspid Va lve: Fjqg-vz-wqudbaiz tricuspid regurgitation present. Tricuspid Valve: There is moderate p ulmonary hypertension. Tricuspid Valve: The right ventricular systolic pressure (pulmonary artery systolic pressure), as measured by Doppler, is 62.61mmHg. Pulmonic Valve: The pulmoni c valve was not well visualized. Pericardium: There is a small pericardial effusion is locat ed near the right ventricle. Pericardium: There is no evidence of cardiac tamponade. IVC/He patic Veins: The IVC is normal size (1.5-2.5cm) and collapses <50% with sniff, consistent wi central venous pressures of 10-15mmHg. MEASUREMENTS IVC: 2.09 cm LA Marcia r: 5.82 cm LVOT Diam: 1.79 cm RA Major: 4.51 cm RVIDd: 3.11 cm LVEF MOD A4C: 23.06 % SV MOD A4C: 24.01 ml LVEDV MOD A4C: 104.12 ml LVLd A4C: 8.32 cm LVESV MOD A4C: 80 .11 ml LVLs A4C: 7.57 cm LAEDV(A-L): 71.18 ml LAEDV Index (A-L): 48.42 ml/m2 LAAd A2C: 18.54 cm2 LAEDV A-L A2C: 58.33 ml LAEDV MOD A2C: 55.18 ml LALd A2C: 5.00 cm LAAd A4 C: 22.63 cm2 LAEDV A-L A4C: 72.64 ml LAEDV MOD A4C: 66.83 ml LALd A4C: 5.98 cm MR Fl ow: 105.73 ml/s MR Rad: 0.66 cm MR Als.Mc: 0.37 m/s Ao Diam: 3.13 cm AV Cusp: 1.5 1 cm LA Diam: 3.87 cm LA/Ao: 1.23 %FS: 25.64 % EDV(Teich): 231.10 ml EF(Teich): 4 9.31 % ESV(Teich): 117.12 ml IVSd: 0.68 cm IVSs: 0.92 cm LVIDd: 6.69 cm LVIDs: 4.9 7 cm LVPWd: 0.92 cm LVPWs: 1.37 cm SV(Teich): 113.97 ml D-E Excursion: 1.44 cm E-F S vinny: 0.05 m/s EPSS: 1.21 cm AR Dec [place]: 1.60 m/s2 AR Dec Time: 1757.97 ms AR maxP .96 mmHg AR PHT: 509.81 ms AR Vmax: 2.82 m/s HR: 66.94 BPM AR maxP.20 mm Hg AR meanP.96 mmHg AR Vmax: 2.55 m/s AR Vmean: 2.15 m/s AR VTI: 129.70 cm ARen d P.29 mmHg ARend Vmax: 2.11 m/s HR: 96.87 BPM AV maxP.97 mmHg AV meanP.13 mmHg AV Vmax: 1.22 m/s AV Vmean: 0.83 m/s AV VTI: 23.32 cm SANDOVAL Vmax: 1.90 cm2 SANDOVAL (VTI): 1.87 cm2 LVCI Dopp: 2.90 l/minm2 LVCO Dopp: 4.27 l/min HR: 97.96 BPM LVOT maxP.38 mmHg LVOT meanP.00 mmHg LVSI Dopp: 29.68 ml/m2 LVSV Dopp: 43.64 ml LVOT Vmax: 0.92 m/s LVOT Vmean: 0.67 m/s LVOT VTI: 17.27 cm MCO: 321.79 ms MR maxP.39 mmHg MR meanP.15 mmHg MR Vmax: 3.29 m/s MR Vmean: 2.56 m/s MR VTI: 73. 68 cm MR maxP.16 mmHg MR Vmax: 3.94 m/s MV A Mc: 1.23 m/s MV DecT: 147.26 ms M V E Mc: 0.73 m/s MV E/A Ratio: 0.59 MV PHT: 43.08 ms MVA By PHT: 5.10 cm2 MV A Dur : 89.96 ms Septal e': 0.03 m/s Septal E/e': 21.69 Lateral e': 0.03 m/s Lateral E/e' : 19.47 MR ERO: 0.25 cm2 MR RV: 28.74 ml MR Vmax: 4.18 m/s MR VTI: 113.69 cm P Ve in A: 0.35 m/s P Vein A Dur: 134.94 ms P Vein D: 0.34 m/s P Vein S/D Ratio: 1.82 P Vein S: 0.62 m/s HR: 99.65 BPM PV maxP.89 mmHg PV meanP.75 mmHg PV Vmax: 0 .85 m/s PV Vmean: 0.62 m/s PV VTI: 14.43 cm RAP: 15 mmHg RVSP: 62.60 mmHg TR maxP.60 mmHg TR Vmax: 3.44 m/s TV A Mc: 0.93 m/s TV Dec [place]: 4.08 m/s2 TV Dec Time: 135.12 ms TV E Mc: 0.55 m/s TV E/A Ratio: 0.58 Cardiac Exercise Physiologist: LOLY Authenticated by: Christiano Guzman MD Report Date/Time: 05-01-2014 16:13:14 05/01/2014 1. Overall left ventricular systolic function is moderately impaired with, an EF between 30 - 40 %. 2. The left ventricle is markedly dilated. 3. mid anteroseptal - akinetic ; 4. apex - akinetic; 5. The left atrium is mildly dilated. 6. There is uobr-uu-zkttudsg a ortic regurgitation. 7. Blds-nz-stmxblnm mitral regurgitation is present. 8. There is modera te pulmonary hypertension. 9. The right ventricular systolic pressure (pulmonary artery syst olic pressure), as measured by Doppler, is 62.61mmHg. 10. There is a small pericardial effus ion is located near the right ventricle. 11. There is no evidence of cardiac tamponade. PROBLEM LIST Principal Problem: *Dyspnea Active Problems: Hypoxia Orthopnea DM2 (diabetes mellitus, type 2) LEANNA (acute kidney injury) Elevated troponin Acute systolic CHF (congestive heart failure) Anemia, iron deficiency Vitamin D deficiency Acidosis, metabolic Hyponatremia Hyperphosphatemia ASSESSMENT & PLAN Ms. Hawkins is a 83 y.o. 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 Echo Cardiac Adult Complete 05/01/2014 1. Overall left ventricular systolic function is moderately impaired with, an EF b etween 30 - 40 %. 2. The left ventricle is markedly dilated. 3. mid anteroseptal - akinetic; 4. apex - akinetic; 5. The left atrium is mildly dilated. 6. There is npnb-df-wohjxooy aort ic regurgitation. 7. Xgom-nk-pxalpmiy mitral regurgitation is present. 8. There is moderate pulmonary hypertension. 9. The right ventricular systolic pressure (pulmonary artery systoli c pressure), as measured by Doppler, is 62.61mmHg. 10. There is a small pericardial effusion is located near the right ventricle. 11. There is no evidence of cardiac tamponade. NSTEMI 05/02/2014 15:36 YAMILETH NEGATIVE ANCA PATTERN PENDING LAMBDA FLC 4.76 (H) KAPPA FLC 4.80 (H) KAPPA/LAMBDA FLC RATIO 1.01 HEPATITIS INTERP No serologic evidence of current or past Hepatitis B virus infection. COMPLEMENT C4 20.9 COMPLEMENT C3 104 Ultrasound Kidneys And Bladder 05/02/2014 1. Unremarkable renal ultrasound. Lab Results Component Value Date BUN 50* 05/04/2014 BUN 47* 05/03/2014 BUN 43* 05/02/2014 CREATININE 2.20* 05/04/2014 CREATININE 2.15* 05/03/2014 CREATININE 2.30* 05/02/2014 EGFR 23* 05/04/2014 EGFR 23* 05/03/2014 EGFR 22* 05/02/2014 STOPPED LASIX BY LATE EVENING, UO 7 L Assessment: Hemodynamically stable. Renal function most likely with CKD stage 3 with some component of acute injury with decomp ensated systolic CHF, anemia, and NSTEMI. Creatinine stable. HBA1C noted to be 7.5 consistent with untreated DM2. Proteinuria work up with negative Hepatitis panel, negative YAMILETH, normal ,C3 and C4. FLC rat io normal. Hypertension well controlled. Clinically and radiologically volume overloaded with no lower extremity edema, but with JVD , orthopnea. PO4 borderline high with renal insufficiency and reduced renal clearance.Started on PO renv narcisa. Vitamin D deficiency noted. Started On PO replacement. Marked Fe deficiency anemia noted and would need age appropriate GI work up with EGD/colono scopy to exclude GI loss. Transfused PRBC (unable to tolerate IV Fe) and Hb rise appropriate . Recommendations Diuresed with IV lasix for decompensated systolic CHF.decreased dose to 5 mg/hr. To D/C b y evening and reeval in AM Strict 1.5 L fluid restriction. No SURESH/ARB for now. Reassess kidney function after diuresis and completion of work up to see what her baseline creatinine is. Regardless with history of smoking and with longstanding untreated DM2 likely has CKD which would increase her risk of IZZY. No IVF. Cont. vitamin D replacement, renvela, and sodium bicarbonate. 2 gm Na, 2 gm K, 1 gm PO4, 1 gm/kg protein diet. Please dose all medications per eGFR Pt to AVOID NSAID,TROY II inhibitors,IV Contrast and Nephrotoxic Antibiotics Fluid restriction 1.5 L in 24 hr period. Strict I/O (ortega catheter may be placed for accurate estimation). Daily CMP (including Mg, PO4). D/W DAUGHTERS Time spend over 35 minutes of time spent evaluating the patient, reviewing the data, formul ating a plan and discussion with patient and hospitalist team, more than half of the time s pent in counseling and coordination of care. HORTENSIA PATEL MD 05/04/2014 Maria G Dillon MD - 05/04/2014 9:12 AM PDTFormatting of this note might be different fro m the original. Progress Notes by Leandro Terrell MD at 05/04/14911 Author: Leandro Terrell MD Service: (none) Author Type: Physician Filed: 05/04/14911 Date of Service: 05/04/14911 Status: Signed Prop Maker: Leandro Terrell MD (Physician) Feels baseline. VS. No change in plan. She did not have an CT this admission. Matthew Molina MD - 05/04/2014 8:16 AM PDTFormatting of this note might be different from the origin al. Progress Notes by Aylin White MD at 05/04/14815 Author: Aylin White MD Service: Hospitalist Author Type: Physician Filed: 05/04/14 1326 Date of Service: 05/04/14815 Status: Signed Prop Maker: Aylin White MD (Physician) [facility] Service: Hospitalist Progress Note Hospital Day: LOS: 3 days Chief Complaint: Shortness of breath SUBJECTIVE Events Overnight: Patient feels significantly better today. She is laying flat in the bed and is not looking short of breath. Mild intermittent cough. No bleeding. Afebrile. No chest pain, headache. Scheduled Medications aspirin 325 mg Oral Daily with breakfast cholecalciferol 1,000 Units Oral Daily ergocalciferol 50,000 Units Oral Weekly ferrous sulfate (65 FE) 65 mg of iron Oral TID WC insulin aspart 0-3 Units Subcutaneous Nightly insulin aspart 0-6 Units Subcutaneous TID AC insulin detemir 10 Units Subcutaneous Nightly metoprolol 25 mg Oral BID senna-docusate 1 tablet Oral BID sevelamer 800 mg Oral TID WC simvastatin 20 mg Oral Nightly sodium bicarbonate 648 mg Oral TID sodium chloride 10 mL Intravenous Q8H Continuous Infusions dextrose furosemide (LASIX) infusion 15 mg/hr (05/04/14 0337) PRN Medications acetaminophen, acetaminophen, dextrose, dextrose, dextrose, glucagon, glucagon, heparin (po rcine), heparin (porcine), ondansetron, ondansetron, polyethylene glycol, zolpidem OBJECTIVE Vital Signs: BP 109/57 | Pulse 90 | Temp 98.3 F (36.8 C) (Oral) | Resp 18 | Ht 1.499 m (4' 11") | Wt 60.3 kg (132 lb 15 oz) | BMI 26.84 kg/m2 | SpO2 93% | ? No Filed Vitals: 05/03/14 1927 05/03/14 2255 05/04/14 0318 05/04/14 0736 BP: 120/58 98/53 99/52 109/57 Pulse: 90 82 83 90 Temp: 98.3 F (36.8 C) 98.3 F (36.8 C) 98.1 F (36.7 C) 98.3 F (36.8 C) TempSrc: Oral Oral Oral Oral Resp: 18 18 18 18 Height: Weight: SpO2: 98% 94% 95% 93% Intake/Output Summary (Last 24 hours) at 05/04/14 0816 Last data filed at 05/04/14 0556 Gross per 24 hour Intake 962 ml Output 4875 ml Net -3913 ml General: Comfortable HEENT: No thrush. Neck: No JVD, Trachea midline. Psych: Alert and oriented x 3. Calm, cooperative. Cardiovascular: Regular rate and rhythm, no murmurs, no palpable thrills. Normal PMI. Respiratory: Decreased breath sounds at bases. no wheezing or crackles, breathing non labo red. Chest expansion equal on both sides. No use of accessory muscles. Gastrointestinal: Soft, non-tender, non-distended, positive bowel sounds. No HSM. Musculoskeletal: No edema in bilateral lower extremities. No joint swelling. Skin: foot diabetes skin lesions? Not infected. Neurological: Higher functions grossly normal. Non focal. Motor and sensory grossly intact. Normal co-ordination. DATA Lab 05/04/1445605/03/1435305/02/14 011 WBC 10.6 11.3* 10.1 HGB 10.6* 10.1* 7.5* HCT 32.2* 30.8* 23.8* PLT 228 218 238 NEUTOPHILPCT 71.7 72.6 70.0 MONOPCT 9.2 7.2 7.0 Lab 05/04/14 04505/03/1435305/02/14 01105/01/14 1010 NA 136 132* 134* -- K 3.9 4.8 5.0* -- CL 102 105 108 -- CO2 26 20* 20* -- BUN 50* 47* 43* -- CREATININE 2.20* 2.15* 2.30* -- CALCIUM -- -- -- -- PROT 6.4 6.5 -- 7.1 BILITOT 0.4 0.6 -- 0.3 ALKPHOS -- -- -- -- ALT 6* 10 -- 14 AST 8* 11 -- 10 GLUCOSE -- -- -- -- Phosphorus: Lab Results Component Value Date PHOS 4.7 05/04/2014 No components found with this basename: LABALBU:3 Lab 05/04/1445605/03/1435305/02/14 011 MG 2.0 2.3 2.5* No results found for this basename: AMYLASE:3 in the last 168 hours No results found for this basename: PHART:3,PO2ART:3,KZD2JSU:3,Q3HSKHLN:3,BEART:[address] 168 hours Lab 05/02/14 0724 05/02/14 0111 05/01/14 1010 APTT 30 28 24 INR -- -- 1.0 PTT -- -- -- No results found for this basename: TSH:3,T3FREE:3,FREET4:3 in the last 168 hours Lab 05/02/14 0811 05/01/14 1503 05/01/14 1010 CKTOTAL 101 97 96 TROPONINI 1.83* 1.65* -- TROPONINT -- -- -- CKMBINDEX 4.3 5.6 5.2 Results No Results found for the last 72 hours. Xr Chest 2 View 05/01/2014 ALEXSANDRA HAWKINS 1930 83 years Female XR CHEST 2 VIEW FRONTAL AND LATERAL 05/01/2014 11:56 AM INDICATION: Shortness of breath COMPARISON: None. TECHNIQUE: Two view [place] [address], [place] and lateral views FINDINGS: There is moderate enlargement of the cardiac silhouette. There is no widening or shift of the mediastinum. There is no pneumothorax. The costophreni c angle is blunted bilaterally suggestive of some pleural fluid. Moderate degenerative disc disease and osteopenia is present with several chronic appearing wedge deformities throughou t the thoracic and lumbar spine. The vasculature is mildly distended with slightly increased hazy reticular markings throughout the lung. 05/01/2014 1. Imaging findings concerning for pulmonary edema. Echo Cardiac Adult Complete 05/01/2014 Patient Name: ALEXSANDRA HAWKINS Date of : 1930 Performing Physician: Christiano Guzman MD INDICATIONS CHF CONCLUSIONS 1. Overall left ventricula r systolic function is moderately impaired with, an EF between 30 - 40 %. 2. The left ventri americo is markedly dilated. 3. mid anteroseptal - akinetic; 4. apex - akinetic; 5. The left a trium is mildly dilated. 6. There is zjhb-hg-dsypfeai aortic regurgitation. 7. Icqj-ty-hsyon ate mitral regurgitation is present. 8. There is moderate pulmonary hypertension. 9. The rig ht ventricular systolic pressure (pulmonary artery systolic pressure), as measured by Dopple r, is 62.61mmHg. 10. There is a small pericardial effusion is located near the right ventric le. 11. There is no evidence of cardiac tamponade. FINDINGS -------- ECG rhythm: Sinus rhyt hm with extra systolic beats. Study: A 2-dimensional transthoracic echocardiogram with m-mod e, spectral and color flow Doppler was perfomed. Study: This was a technically adequate tha dy. Left Ventricle: Overall left ventricular systolic function is moderately impaired with, an EF between 30 - 40 %. Left Ventricle: The left ventricle is markedly dilated. Left Vent ricle: Left ventricular wall thickness is normal. Left Ventricle: mid anteroseptal - akinet ic; Left Ventricle: apex - akinetic; Right Ventricle: The right ventricle is normal in si ze. Left Atrium: The left atrium is mildly dilated. Right Atrium: The right atrial size is n ormal. Aortic Valve: The aortic valve was not well visualized. Aortic Valve: The aortic louis ve is mildly calcified. Aortic Valve: There is ferg-bf-swojhiqy aortic regurgitation. Aort ic Valve: There is no evidence of significant aortic stenosis. Mitral Valve: The mitral louis ve is normal. Mitral Valve: Fdbp-so-dxdmvbkl mitral regurgitation is present. Mitral Valve : Moderate mitral annular calcification present. Mitral Valve: Mild thickening of the anter ior mitral valve leaflet. Mitral Valve: There is mild thickening of the posterior mitral va lve leaflet. Tricuspid Valve: The tricuspid valve appears structurally normal. Tricuspid Va lve: Tztq-dx-zwdxuwgh tricuspid regurgitation present. Tricuspid Valve: There is moderate p ulmonary hypertension. Tricuspid Valve: The right ventricular systolic pressure (pulmonary artery systolic pressure), as measured by Doppler, is 62.61mmHg. Pulmonic Valve: The pulmoni c valve was not well visualized. Pericardium: There is a small pericardial effusion is locat ed near the right ventricle. Pericardium: There is no evidence of cardiac tamponade. IVC/He patic Veins: The IVC is normal size (1.5-2.5cm) and collapses <50% with sniff, consistent wi th central venous pressures of 10-15mmHg. MEASUREMENTS IVC: 2.09 cm LA Marcia r: 5.82 cm LVOT Diam: 1.79 cm RA Major: 4.51 cm RVIDd: 3.11 cm LVEF MOD A4C: 23.06 % SV MOD A4C: 24.01 ml LVEDV MOD A4C: 104.12 ml LVLd A4C: 8.32 cm LVESV MOD A4C: 80 .11 ml LVLs A4C: 7.57 cm LAEDV(A-L): 71.18 ml LAEDV Index (A-L): 48.42 ml/m2 LAAd A2C: 18.54 cm2 LAEDV A-L A2C: 58.33 ml LAEDV MOD A2C: 55.18 ml LALd A2C: 5.00 cm LAAd A4 C: 22.63 cm2 LAEDV A-L A4C: 72.64 ml LAEDV MOD A4C: 66.83 ml LALd A4C: 5.98 cm MR Fl ow: 105.73 ml/s MR Rad: 0.66 cm MR Als.Mc: 0.37 m/s Ao Diam: 3.13 cm AV Cusp: 1.5 1 cm LA Diam: 3.87 cm LA/Ao: 1.23 %FS: 25.64 % EDV(Teich): 231.10 ml EF(Teich): 4 9.31 % ESV(Teich): 117.12 ml IVSd: 0.68 cm IVSs: 0.92 cm LVIDd: 6.69 cm LVIDs: 4.9 7 cm LVPWd: 0.92 cm LVPWs: 1.37 cm SV(Teich): 113.97 ml D-E Excursion: 1.44 cm E-F S vinny: 0.05 m/s EPSS: 1.21 cm AR Dec Washita: 1.60 m/s2 AR Dec Time: 1757.97 ms AR maxP .96 mmHg AR PHT: 509.81 ms AR Vmax: 2.82 m/s HR: 66.94 BPM AR maxP.20 mm Hg AR meanP.96 mmHg AR Vmax: 2.55 m/s AR Vmean: 2.15 m/s AR VTI: 129.70 cm ARen d P.29 mmHg ARend Vmax: 2.11 m/s HR: 96.87 BPM AV maxP.97 mmHg AV meanP.13 mmHg AV Vmax: 1.22 m/s AV Vmean: 0.83 m/s AV VTI: 23.32 cm SANDOVAL Vmax: 1.90 cm2 SANDOVAL (VTI): 1.87 cm2 LVCI Dopp: 2.90 l/minm2 LVCO Dopp: 4.27 l/min HR: 97.96 BPM LVOT maxP.38 mmHg LVOT meanP.00 mmHg LVSI Dopp: 29.68 ml/m2 LVSV Dopp: 43.64 ml LVOT Vmax: 0.92 m/s LVOT Vmean: 0.67 m/s LVOT VTI: 17.27 cm MCO: 321.79 ms MR maxP.39 mmHg MR meanP.15 mmHg MR Vmax: 3.29 m/s MR Vmean: 2.56 m/s MR VTI: 73. 68 cm MR maxP.16 mmHg MR Vmax: 3.94 m/s MV A Mc: 1.23 m/s MV DecT: 147.26 ms M V E Mc: 0.73 m/s MV E/A Ratio: 0.59 MV PHT: 43.08 ms MVA By PHT: 5.10 cm2 MV A Dur : 89.96 ms Septal e': 0.03 m/s Septal E/e': 21.69 Lateral e': 0.03 m/s Lateral E/e' : 19.47 MR ERO: 0.25 cm2 MR RV: 28.74 ml MR Vmax: 4.18 m/s MR VTI: 113.69 cm P Ve in A: 0.35 m/s P Vein A Dur: 134.94 ms P Vein D: 0.34 m/s P Vein S/D Ratio: 1.82 P Vein S: 0.62 m/s HR: 99.65 BPM PV maxP.89 mmHg PV meanP.75 mmHg PV Vmax: 0 .85 m/s PV Vmean: 0.62 m/s PV VTI: 14.43 cm RAP: 15 mmHg RVSP: 62.60 mmHg TR maxP.60 mmHg TR Vmax: 3.44 m/s TV A Mc: 0.93 m/s TV Dec [place]: 4.08 m/s2 TV Dec Time: 135.12 ms TV E Mc: 0.55 m/s TV E/A Ratio: 0.58 Cardiac Exercise Physiologist: LOLY Authenticated by: Christiano Guzman MD Report Date/Time: 05-01-2014 16:13:14 05/01/2014 1. Overall left ventricular systolic function is moderately impaired with, an EF between 30 - 40 %. 2. The left ventricle is markedly dilated. 3. mid anteroseptal - akinetic ; 4. apex - akinetic; 5. The left atrium is mildly dilated. 6. There is sqec-eo-ajssjuuz a ortic regurgitation. 7. Cbex-go-vpjsrlqa mitral regurgitation is present. 8. There is modera te pulmonary hypertension. 9. The right ventricular systolic pressure (pulmonary artery syst olic pressure), as measured by Doppler, is 62.61mmHg. 10. There is a small pericardial effus ion is located near the right ventricle. 11. There is no evidence of cardiac tamponade. PROBLEM LIST Principal Problem: *Dyspnea Active Problems: Hypoxia Orthopnea DM2 (diabetes mellitus, type 2) LEANNA (acute kidney injury) Elevated troponin Acute systolic CHF (congestive heart failure) Anemia, iron deficiency Vitamin D deficiency Acidosis, metabolic Hyponatremia Hyperphosphatemia ASSESSMENT/ PLAN Dyspnea: This is likely secondary to acute systolic congestive heart failure. Patient seen by Dr. Terrell. We have started this patient on aspirin, metoprolol, statin. 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 Recommendations from cardiology are to workup anemia and stabilize renal function, and after that a stress test could be considered. Patient has been on a Lasix drip and has improved significantly. Will plan for a stress te st tomorrow morning. Patient will be nothing by mouth past midnight. Acute kidney injury: Nephrology is following. Ultrasound kidneys do not show hydronephrosis . Diabetes mellitus. Blood sugars reasonably controlled. Continue Levemir and insulin slidi ng scale. Hemoglobin A1c 7.5. Anemia: Iron deficiency anemia. Status post 2 unit of packed RBC transfusions. Hemoglobin is stable now . Continue iron replacement. Patient denies any blood loss. stool for occult blood not done yet since patient has not passed any bowel movements. I have recommended patient and family to consider colonoscopy to be done as outpatient. Hyperkalemia: Resolved DVT prophylaxis: Hemoglobin has been stable. We will restart heparin. Ordered labs for tomorrow. Code Status: Full Code Aylin White MD 05/04/20148:16 AM Chart Correction History Action User Date/Time Reason Details Note Type Change Him Admin Close 2 06/26/14 0807 Changed from H&P. Karolyn Dubon MD - 05/03/2014 11:10 AM PDTFormatting of this note might be different from the origi nal. Progress Notes by Aminta Perry MD at 05/03/14 1110 Author: Aminta Perry MD Service: Nephrology Author Type: Physician Filed: 05/03/14 1151 Date of Service: 05/03/14 1110 Status: Signed Prop Maker: Aminta Perry MD (Physician) PCP : LOIS MOELLER LOS: 2 days Alexsandra Hawkins is a 83 y.o. female followed for renal insufficiency in setting of decompen sated CHF (systolic). Interval history: Alexsandra Hawkins feels 'OK' today. Overnight events: No fever, chills sweats. No nausea, vomiting or diarrhea. + shortness or breath, but no chest pain, cough. No dysuria, urgency, frequency, gross hematuria, urinary hesitancy. ROS: As in History of Present Illness. 7 area ROS was done and was otherwise negative. Examination: APPEARANCE: Alexsandra Hawkins is sitting up in bed, short of breath, unable to complete a sen tence without stopping to catch her breath.. VITALS: Reviewed as listed. HEENT: EOMI. Non-icteric sclera.+ JVD LYMPHATIC: No palpable lymphadenopathy. LUNGS: Basal rales. HEART: S1 soft. No S3 .No murmur. ABDOMEN: Soft, no tenderness. Bowel sounds present. No organomegaly or bruits. EXTREMITIES: No LE edema. No cyanosis or clubbing. Peripheral pulses not palpable SKIN: Warm to touch. Circular hyperpigmented lesions on both feet. NEUROLOGIC: No gross focal motor deficit. PSYCH: Alert and oriented x 3, mood and affect ok, BACK: No CVA tenderness. No sacral edema. The following portions of the patient's history were reviewed and updated as appropriate: l aboratory data, radiologic studies, allergies, current medications, and problem list. Past m edical, surgical, social, and family history was also reviewed. Past history summarized as a alton. Scheduled Medications Reviewed. Continuous Infusions Reviewed. Vital Signs: BP 118/57 | Pulse 91 | Temp 97.6 F (36.4 C) (Oral) | Resp 20 | Ht 1.499 m (4' 11") | Wt 60.3 kg (132 lb 15 oz) | BMI 26.84 kg/m2 | SpO2 98% | ? No I&O Detailed Table: I/O last 3 completed shifts: In: 3938 [P.O.:2100; I.V.:1838] Out: 2700 [Urine:2700] Weight change: 0.7 kg (1 lb 8.7 oz) Hemodynamics Last 24hrs: Assessment and Recommendations: Ms. Hawkins is a 83 y.o. 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 Echo Cardiac Adult Complete 05/01/2014 1. Overall left ventricular systolic function is moderately impaired with, an EF b etween 30 - 40 %. 2. The left ventricle is markedly dilated. 3. mid anteroseptal - akinetic; 4. apex - akinetic; 5. The left atrium is mildly dilated. 6. There is oxfi-jb-fascffvy aort ic regurgitation. 7. Thce-pa-ldcsyxfu mitral regurgitation is present. 8. There is moderate pulmonary hypertension. 9. The right ventricular systolic pressure (pulmonary artery systoli c pressure), as measured by Doppler, is 62.61mmHg. 10. There is a small pericardial effusion is located near the right ventricle. 11. There is no evidence of cardiac tamponade. NSTEMI DM2: Systolic CHF (decompensated). Fe deficiency anemia: Hyperkalemia, resolved: Mild hyponatremia: Asymptomatic hyperuricemia: Vitamin D deficiency: Metabolic acidosis: 05/02/2014 15:36 YAMILETH NEGATIVE ANCA PATTERN PENDING LAMBDA FLC 4.76 (H) KAPPA FLC 4.80 (H) KAPPA/LAMBDA FLC RATIO 1.01 HEPATITIS INTERP No serologic evidence of current or past Hepatitis B virus infection. COMPLEMENT C4 20.9 COMPLEMENT C3 104 Ultrasound Kidneys And Bladder 05/02/2014 1. Unremarkable renal ultrasound. Lab data evaluation: Lab Results Component Value Date BUN 47* 05/03/2014 CREATININE 2.15* 05/03/2014 EGFR 23* 05/03/2014 NA 132* 05/03/2014 K 4.8 05/03/2014 CL 105 05/03/2014 CO2 20* 05/03/2014 CA 8.2* 05/03/2014 PHOS 5.4* 05/03/2014 MG 2.3 05/03/2014 ALB 3.6 05/03/2014 HGB 10.1* 05/03/2014 Component Value Date/Time CREATININE 2.15* 05/03/2014 0354 CREATININE 2.30* 05/02/2014 0111 CREATININE 2.05* 05/01/2014 1010 05/02/14 Started on lasix drip with response but unable to attain negative balance with no fluid res triction. 05/03/14 Seen with daughter "Helga" and son in law Assessment: Hemodynamically stable. Renal function most likely with CKD stage 3 with some component of acute injury with de compensated systolic CHF, anemia, and NSTEMI. Creatinine stable. HBA1C noted to be 7.5 consistent with untreated DM2. Proteinuria work up with negative Hepatitis panel, negative YAMILETH, normal C3 and C4. FLC r atio normal. Check for Proteinuria given history of DM2. Hypertension well controlled. Clinically and radiologically volume overloaded with no lower extremity edema, but with JVD, orthopnea. Mild hyponatremia with volume overload. Hyperkalemia in setting of reduced urine output and likely hypo renin hypo reginald state co mmon in diabetics. Improved with diuresis. Ca target range. Borderline hypomagnesemia with renal insufficiency and reduced renal clearance. Albumin borderline low. PO4 borderline high with renal insufficiency and reduced renal clearance.Started on PO r envela. Vitamin D deficiency noted. Started On PO replacement. Borderline hyperuricemia noted. ABG with some degree of metabolic acidosis. On PO bicarbonate. Marked Fe deficiency anemia noted and would need age appropriate GI work up with EGD/col onoscopy to exclude GI loss. Transfused PRBC (unable to tolerate IV Fe) and Hb rise appropri ate. Recommendations Diurese with IV lasix for now given decompensated systolic CHF. Increase dose to 10 mg/hr. (watch for hypokalemia, hypophosphatemia, hypomagnesemia, alkalosis with lasix) Strict 1.2 L fluid restriction. No SURESH/ARB for now. Reassess kidney function after diuresis and completion of work up to see what her baseline creatinine is. Regardless with history of smoking and with longstanding untreated DM2 likely has CKD which would increase her risk of IZZY. No IVF. Start vitamin D replacement, renvela, and sodium bicarbonate. 2 gm Na, 2 gm K, 1 gm PO4, 1 gm/kg protein diet. Please dose all medications for an eGFR of less than 30 ml/min/1.73 m2. No IV contrast studies. No NSAIDS/TROY 2 inhibitors, Aluminum/magnesium containing antacids, magnesium/phosphate con taining enemas. Fluid restriction 1.5 L in 24 hr period. Strict I/O (ortega catheter may be placed for accurate estimation). Daily CMP (including Mg, PO4). AMINTA PERRY MD 05/03/2014 Plan of care discussed with Dr. White Seen earlier in the day and charting completed later after rounds. Dictation software, [employer], used which may contain error for similar sounding words. Personal communication requested for any clarification. 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 Dr. Patel will assume nephrology care as of 10 pm 05/03/14 Leandro Dillon MD - 05/03/2014 9:07 AM PDTFormatting of this note might be different from the origin al. Progress Notes by Leandro Terrell MD at 05/03/14 0907 Author: Leandro Terrell MD Service: (none) Author Type: Physician Filed: 05/03/14 0908 Date of Service: 05/03/14 0907 Status: Signed Prop Maker: Leandro Terrell MD (Physician) Transfused. Hgb 10. Feels back to her baseline. Recc: Nuc stress before DC. Only needs cath if ischemia noted. Matthew Molina MD - 05/03/2014 8:33 AM PDTFormatting of this note might be different from the origin al. Progress Notes by Aylin White MD at 05/03/14 0833 Author: Aylin White MD Service: Hospitalist Author Type: Physician Filed: 05/03/14 1415 Date of Service: 05/03/14 0833 Status: Signed Prop Maker: Aylin White MD (Physician) [facility] Service: Hospitalist Progress Note Hospital Day: LOS: 2 days Chief Complaint: Shortness of breath SUBJECTIVE Events Overnight: Patient again denies any worsening of her shortness of breath. She still looks like having difficulty breathing when lying down. She downplays any symptoms. Mild intermittent cough. No bleeding. Afebrile. No chest pain, headache. Scheduled Medications aspirin 325 mg Oral Daily with breakfast insulin aspart 0-3 Units Subcutaneous Nightly insulin aspart 0-6 Units Subcutaneous TID AC insulin detemir 10 Units Subcutaneous Nightly metoprolol 25 mg Oral BID simvastatin 20 mg Oral Nightly sodium chloride 10 mL Intravenous Q8H [DISCONTINUED] iron gluconate 125 mg Intravenous Q24H [DISCONTINUED] iron gluconate 125 mg Intravenous Q24H [DISCONTINUED] furosemide 40 mg Intravenous See Admin Instructions Continuous Infusions dextrose furosemide (LASIX) infusion 10 mg/hr (05/03/14 0228) [DISCONTINUED] heparin 50 units/mL in Dextrose 5% Stopped (05/02/14 1010) PRN Medications acetaminophen, acetaminophen, dextrose, dextrose, dextrose, glucagon, glucagon, heparin (po rcine), heparin (porcine), ondansetron, ondansetron, polyethylene glycol, zolpidem OBJECTIVE Vital Signs: BP 118/57 | Pulse 91 | Temp 97.6 F (36.4 C) (Oral) | Resp 20 | Ht 1.499 m (4' 11") | Wt 60.3 kg (132 lb 15 oz) | BMI 26.84 kg/m2 | SpO2 98% | ? No Filed Vitals: 05/02/14 2316 05/03/14 0045 05/03/14 0346 05/03/14 0716 BP: 116/57 106/55 118/72 118/57 Pulse: 74 78 94 91 Temp: 98.1 F (36.7 C) 98.1 F (36.7 C) 98.3 F (36.8 C) 97.6 F (36.4 C) TempSrc: Oral Oral Oral Oral Resp: 20 Height: Weight: 60.3 kg (132 lb 15 oz) SpO2: 96% 97% 98% Intake/Output Summary (Last 24 hours) at 05/03/14 0833 Last data filed at 05/03/14 0723 Gross per 24 hour Intake 2363 ml Output 2700 ml Net -337 ml General: Comfortable HEENT: No thrush. Neck: No JVD, Trachea midline. Psych: Alert and oriented x 3. Calm, cooperative. Cardiovascular: Regular rate and rhythm, no murmurs, no palpable thrills. Normal PMI. Respiratory: Decreased breath sounds at bases. no wheezing or crackles, breathing non labo red. Chest expansion equal on both sides. No use of accessory muscles. Gastrointestinal: Soft, non-tender, non-distended, positive bowel sounds. No HSM. Musculoskeletal: No edema in bilateral lower extremities. No joint swelling. Skin: foot diabetes skin lesions? Not infected. Neurological: Higher functions grossly normal. Non focal. Motor and sensory grossly intact. Normal co-ordination. DATA Lab 05/03/1435305/02/14 01105/01/14 1010 WBC 11.3* 10.1 10.5 HGB 10.1* 7.5* 8.6* HCT 30.8* 23.8* 25.8* PLT 218 238 299 NEUTOPHILPCT 72.6 70.0 87.7 MONOPCT 7.2 7.0 3.5 Lab 05/03/1435305/02/14 01105/01/14 1010 NA 132* 134* 140 K 4.8 5.0* 4.5 CL 105 108 111* CO2 20* 20* 18* BUN 47* 43* 37* CREATININE 2.15* 2.30* 2.05* CALCIUM -- -- -- PROT 6.5 -- 7.1 BILITOT 0.6 -- 0.3 ALKPHOS -- -- -- ALT 10 -- 14 AST 11 -- 10 GLUCOSE -- -- -- Phosphorus: Lab Results Component Value Date PHOS 5.4* 05/03/2014 No components found with this basename: LABALBU:3 Lab 05/03/1435305/02/14 011 MG 2.3 2.5* No results found for this basename: AMYLASE:3 in the last 168 hours No results found for this basename: PHART:3,PO2ART:3,EZI6HYV:3,M1IZNBFH:3,BEART:[address] 168 hours Lab 05/02/14 0724 05/02/14 0111 05/01/14 1010 APTT 30 28 24 INR -- -- 1.0 PTT -- -- -- No results found for this basename: TSH:3,T3FREE:3,FREET4:3 in the last 168 hours Lab 05/02/14 0811 05/01/14 1503 05/01/14 1010 CKTOTAL 101 97 96 TROPONINI 1.83* 1.65* -- TROPONINT -- -- -- CKMBINDEX 4.3 5.6 5.2 Results No Results found for the last 72 hours. Xr Chest 2 View 05/01/2014 ALEXSANDRA HAWKINS 1930 83 years Female XR CHEST 2 VIEW FRONTAL AND LATERAL 05/01/2014 11:56 AM INDICATION: Shortness of breath COMPARISON: None. TECHNIQUE: Two view [place], [place] and lateral views FINDINGS: There is moderate enlargement of the cardiac silhouette. There is no widening or shift of the mediastinum. There is no pneumothorax. The costophreni c angle is blunted bilaterally suggestive of some pleural fluid. Moderate degenerative disc disease and osteopenia is present with several chronic appearing wedge deformities throughou t the thoracic and lumbar spine. The vasculature is mildly distended with slightly increased hazy reticular markings throughout the lung. 05/01/2014 1. Imaging findings concerning for pulmonary edema. Echo Cardiac Adult Complete 05/01/2014 Patient Name: ALEXSANDRA HAWKINS Date of : 1930 Performing Physician: Christiano Guzman MD INDICATIONS CHF CONCLUSIONS 1. Overall left ventricula r systolic function is moderately impaired with, an EF between 30 - 40 %. 2. The left ventri americo is markedly dilated. 3. mid anteroseptal - akinetic; 4. apex - akinetic; 5. The left a trium is mildly dilated. 6. There is wiwm-nu-wavkfkcw aortic regurgitation. 7. Wwjp-ye-pudnk ate mitral regurgitation is present. 8. There is moderate pulmonary hypertension. 9. The rig ht ventricular systolic pressure (pulmonary artery systolic pressure), as measured by Dopple r, is 62.61mmHg. 10. There is a small pericardial effusion is located near the right ventric le. 11. There is no evidence of cardiac tamponade. FINDINGS -------- ECG rhythm: Sinus rhyt hm with extra systolic beats. Study: A 2-dimensional transthoracic echocardiogram with m-mod e, spectral and color flow Doppler was perfomed. Study: This was a technically adequate tha dy. Left Ventricle: Overall left ventricular systolic function is moderately impaired with, an EF between 30 - 40 %. Left Ventricle: The left ventricle is markedly dilated. Left Vent ricle: Left ventricular wall thickness is normal. Left Ventricle: mid anteroseptal - akinet ic; Left Ventricle: apex - akinetic; Right Ventricle: The right ventricle is normal in si ze. Left Atrium: The left atrium is mildly dilated. Right Atrium: The right atrial size is n ormal. Aortic Valve: The aortic valve was not well visualized. Aortic Valve: The aortic louis ve is mildly calcified. Aortic Valve: There is aulz-ia-ofjkbpzd aortic regurgitation. Aort ic Valve: There is no evidence of significant aortic stenosis. Mitral Valve: The mitral louis ve is normal. Mitral Valve: Bjaq-lj-ocjkqheu mitral regurgitation is present. Mitral Valve : Moderate mitral annular calcification present. Mitral Valve: Mild thickening of the anter ior mitral valve leaflet. Mitral Valve: There is mild thickening of the posterior mitral va lve leaflet. Tricuspid Valve: The tricuspid valve appears structurally normal. Tricuspid Va lve: Hulz-ef-wdtoanjg tricuspid regurgitation present. Tricuspid Valve: There is moderate p ulmonary hypertension. Tricuspid Valve: The right ventricular systolic pressure (pulmonary artery systolic pressure), as measured by Doppler, is 62.61mmHg. Pulmonic Valve: The pulmoni c valve was not well visualized. Pericardium: There is a small pericardial effusion is locat ed near the right ventricle. Pericardium: There is no evidence of cardiac tamponade. IVC/He patic Veins: The IVC is normal size (1.5-2.5cm) and collapses <50% with sniff, consistent wi th central venous pressures of 10-15mmHg. MEASUREMENTS IVC: 2.09 cm LA Marcia r: 5.82 cm LVOT Diam: 1.79 cm RA Major: 4.51 cm RVIDd: 3.11 cm LVEF MOD A4C: 23.06 % SV MOD A4C: 24.01 ml LVEDV MOD A4C: 104.12 ml LVLd A4C: 8.32 cm LVESV MOD A4C: 80 .11 ml LVLs A4C: 7.57 cm LAEDV(A-L): 71.18 ml LAEDV Index (A-L): 48.42 ml/m2 LAAd A2C: 18.54 cm2 LAEDV A-L A2C: 58.33 ml LAEDV MOD A2C: 55.18 ml LALd A2C: 5.00 cm LAAd A4 C: 22.63 cm2 LAEDV A-L A4C: 72.64 ml LAEDV MOD A4C: 66.83 ml LALd A4C: 5.98 cm MR Fl ow: 105.73 ml/s MR Rad: 0.66 cm MR Als.Mc: 0.37 m/s Ao Diam: 3.13 cm AV Cusp: 1.5 1 cm LA Diam: 3.87 cm LA/Ao: 1.23 %FS: 25.64 % EDV(Teich): 231.10 ml EF(Teich): 4 9.31 % ESV(Teich): 117.12 ml IVSd: 0.68 cm IVSs: 0.92 cm LVIDd: 6.69 cm LVIDs: 4.9 7 cm LVPWd: 0.92 cm LVPWs: 1.37 cm SV(Teich): 113.97 ml D-E Excursion: 1.44 cm E-F S vinny: 0.05 m/s EPSS: 1.21 cm AR Dec [place]: 1.60 m/s2 AR Dec Time: 1757.97 ms AR maxP .96 mmHg AR PHT: 509.81 ms AR Vmax: 2.82 m/s HR: 66.94 BPM AR maxP.20 mm Hg AR meanP.96 mmHg AR Vmax: 2.55 m/s AR Vmean: 2.15 m/s AR VTI: 129.70 cm ARen d P.29 mmHg ARend Vmax: 2.11 m/s HR: 96.87 BPM AV maxP.97 mmHg AV meanP.13 mmHg AV Vmax: 1.22 m/s AV Vmean: 0.83 m/s AV VTI: 23.32 cm SANDOVAL Vmax: 1.90 cm2 SANDOVAL (VTI): 1.87 cm2 LVCI Dopp: 2.90 l/minm2 LVCO Dopp: 4.27 l/min HR: 97.96 BPM LVOT maxP.38 mmHg LVOT meanP.00 mmHg LVSI Dopp: 29.68 ml/m2 LVSV Dopp: 43.64 ml LVOT Vmax: 0.92 m/s LVOT Vmean: 0.67 m/s LVOT VTI: 17.27 cm MCO: 321.79 ms MR maxP.39 mmHg MR meanP.15 mmHg MR Vmax: 3.29 m/s MR Vmean: 2.56 m/s MR VTI: 73. 68 cm MR maxP.16 mmHg MR Vmax: 3.94 m/s MV A Mc: 1.23 m/s MV DecT: 147.26 ms M V E Mc: 0.73 m/s MV E/A Ratio: 0.59 MV PHT: 43.08 ms MVA By PHT: 5.10 cm2 MV A Dur : 89.96 ms Septal e': 0.03 m/s Septal E/e': 21.69 Lateral e': 0.03 m/s Lateral E/e' : 19.47 MR ERO: 0.25 cm2 MR RV: 28.74 ml MR Vmax: 4.18 m/s MR VTI: 113.69 cm P Ve in A: 0.35 m/s P Vein A Dur: 134.94 ms P Vein D: 0.34 m/s P Vein S/D Ratio: 1.82 P Vein S: 0.62 m/s HR: 99.65 BPM PV maxP.89 mmHg PV meanP.75 mmHg PV Vmax: 0 .85 m/s PV Vmean: 0.62 m/s PV VTI: 14.43 cm RAP: 15 mmHg RVSP: 62.60 mmHg TR maxP.60 mmHg TR Vmax: 3.44 m/s TV A Mc: 0.93 m/s TV Dec [place]: 4.08 m/s2 TV Dec Time: 135.12 ms TV E Mc: 0.55 m/s TV E/A Ratio: 0.58 Cardiac Exercise Physiologist: LOLY Authenticated by: Christiano Guzman MD Report Date/Time: 05-01-2014 16:13:14 05/01/2014 1. Overall left ventricular systolic function is moderately impaired with, an EF between 30 - 40 %. 2. The left ventricle is markedly dilated. 3. mid anteroseptal - akinetic ; 4. apex - akinetic; 5. The left atrium is mildly dilated. 6. There is icuw-uz-ezekxuoe a ortic regurgitation. 7. Cgbz-va-onkaratm mitral regurgitation is present. 8. There is modera te pulmonary hypertension. 9. The right ventricular systolic pressure (pulmonary artery syst olic pressure), as measured by Doppler, is 62.61mmHg. 10. There is a small pericardial effus ion is located near the right ventricle. 11. There is no evidence of cardiac tamponade. PROBLEM LIST Principal Problem: *Dyspnea Active Problems: Hypoxia Orthopnea DM2 (diabetes mellitus, type 2) LEANNA (acute kidney injury) Elevated troponin Hyperkalemia Acute systolic CHF (congestive heart failure) Anemia, iron deficiency ASSESSMENT/ PLAN Dyspnea: This is likely secondary to acute systolic congestive heart failure. Patient seen by Dr. Terrell. We have started this patient on aspirin, metoprolol, statin. 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 Recommendations from cardiology are to workup anemia and stabilize renal function, and after that a stress test could be considered. Lasix drip was started yesterday. Patient will be started on fluid restriction and Lasix d rip dose will be increased today. Acute kidney injury: Dr. Perry from nephrology has been consulted. Appreciate his follow- up. Ultrasound kidneys do not show hydronephrosis. Diabetes mellitus. Patient is on Levemir and insulin sliding scale. Hemoglobin A1c 7.5. Anemia: Iron deficiency anemia. Status post 2 unit of packed RBC transfusions. We will st art the patient on iron replacement. Patient denies any blood loss. stool for occult blood not done yet since patient has not passed any bowel movements. Hyperkalemia: Resolved DVT prophylaxis: Heparin has been held because of low hemoglobin. Heparin can be restarted once bleeding is ruled out. Ordered labs for tomorrow. Code Status: Full Code Aylin White MD 05/03/20148:33 AM Chart Correction History Action User Date/Time Reason Details Note Type Change Him Admin Close 2 06/26/14 0806 Changed from H&P. onversio n Transaction, Provider Unknown - 05/02/2014 3:44 PM PDTFormatting of this note might be di fferent from the original. Case Management by Moustapha Parra RN at 05/02/14 6821 Author: Moustapha Parra RN Service: (none) Author Type: Exhaust Emissions Automotive Technician Filed: 05/02/14 1544 Date of Service: 05/02/14 6428 Status: Signed Prop Maker: Moustapha Parra RN (Exhaust Emissions Automotive Technician) 05/02/14 4966 Discharge Planning Evaluation Admitting Diagnosis SOB, elevated cardiac biomarkers Readmission No Living Arrangements Alone Support Systems Spouse/significant other;Family members Type of Residence Private residence House type House-1 story Steps to enter 2 Bathrooms on 1st Floor 1-Full Independent with ADL's Yes Independent with Mobility Yes Home Care Services No Caregiver after Discharge No Mental Status Oriented Anticipated Discharge Plan Post Acute Care Needs None at this time Resources Financial concerns No Transportation issues No Patient/Family concerns No Prescription Plan Yes Met with pt and family and discussed discharge planning, Pt is a 83 y.o., female lives dariana e in private residence, pt is very independent with daily activities and states she gets out of her house everyday. Family states that they are available to help her as needed anytime . No DME. Pt and family had some questions about POLST form, I provided them with a copy of the POLST and went over the form with them. They have no resource needs or concerns at thi s time. CM will continue to follow as needs arise. Patient's PCP is: LOIS MOELLER Patient's insurance: medicare Coverage concerns: none Medication coverage/concerns: none [facility] Delivery: none Community resources utilized / needed: none Assistance in transportation: family can transport Identification of any specific education / training: per nursing Barriers to Discharge / Alternative housing needed: none at this time Anticipated DCP: Home with family to transport Moustapha Parra onver dave Transaction, Provider Unknown - 05/02/2014 10:45 AM PDT Nurse Progress Note by Ngoc Dial RN at 05/02/14 1045 Author: Ngoc Dial RN Service: (none) Author Type: Registered Nurse Filed: 05/02/14 1939 Date of Service: 05/02/14 1045 Status: Signed Prop Maker: Ngoc Dial RN (Registered Nurse) Pt started on ferrlecit about 20 mins ago and is complaining of intense flank pain on her l eft side with sudden onset. Gtt was stopped and Dr. White consulted. New orders were obtained for blood transfusion. Will continue to monitor. NGOC DIAL RN Fallon Molina MD - 05/02/2014 8:08 AM PDTFormatting of this note might be different from the or iginal. Progress Notes by Aylin White MD at 05/02/14 0808 Author: Aylin White MD Service: Hospitalist Author Type: Physician Filed: 05/02/14 6785 Date of Service: 05/02/14 0808 Status: Signed Prop Maker: Aylin White MD (Physician) [facility] Service: Hospitalist Progress Note Hospital Day: LOS: 1 day Chief Complaint: Shortness of breath SUBJECTIVE Events Overnight: Patient denies any worsening of shortness of breath. She downplays any symptoms. Mild inter mittent cough. No bleeding. Afebrile. No chest pain, headache. Had some nausea last night. Scheduled Medications [COMPLETED] furosemide 40 mg Intravenous Once [COMPLETED] heparin (porcine) 60 Units/kg Intravenous Once insulin aspart 0-3 Units Subcutaneous Nightly insulin aspart 0-6 Units Subcutaneous TID AC insulin detemir 10 Units Subcutaneous Nightly sodium chloride 10 mL Intravenous Q8H [DISCONTINUED] furosemide 40 mg Intravenous Daily [DISCONTINUED] heparin (porcine) 5,000 Units Subcutaneous Q8H [DISCONTINUED] sodium chloride 10 mL Intravenous Q8H Continuous Infusions dextrose heparin 50 units/mL in Dextrose 5% 14 Units/kg/hr (05/02/14 025) [] sodium chloride 75 mL/hr at 05/01/142023 PRN Medications acetaminophen, acetaminophen, dextrose, dextrose, dextrose, glucagon, glucagon, heparin (po rcine), heparin (porcine), ondansetron, ondansetron, polyethylene glycol, zolpidem OBJECTIVE Vital Signs: BP 117/58 | Pulse 94 | Temp 98.1 F (36.7 C) (Oral) | Resp 20 | Ht 1.499 m (4' 11") | Wt 60.1 kg (132 lb 7.9 oz) | BMI 26.75 kg/m2 | SpO2 99% | ? No Filed Vitals: 05/01/14199905/01/14 2333 05/02/14 0413 05/02/14 0734 BP: 92/47 103/56 117/58 Pulse: 91 94 94 Temp: 98.4 F (36.9 C) 98.2 F (36.8 C) 98.1 F (36.7 C) TempSrc: Oral Oral Oral Resp: 22 22 20 Height: Weight: 59.6 kg (131 lb 6.3 oz) 60.1 kg (132 lb 7.9 oz) SpO2: 98% 100% 99% Intake/Output Summary (Last 24 hours) at 05/02/14 0808 Last data filed at 05/02/14 0638 Gross per 24 hour Intake 1525 ml Output 1950 ml Net -425 ml General: Comfortable HEENT: No thrush. Neck: No JVD, Trachea midline. Psych: Alert and oriented x 3. Calm, cooperative. Cardiovascular: Regular rate and rhythm, no murmurs, no palpable thrills. Normal PMI. Respiratory: Decreased breath sounds at bases. no wheezing or crackles, breathing non labo red. Chest expansion equal on both sides. No use of accessory muscles. Gastrointestinal: Soft, non-tender, non-distended, positive bowel sounds. No HSM. Musculoskeletal: No edema in bilateral lower extremities. No joint swelling. Skin: foot diabetes skin lesions? Not infected. Neurological: Higher functions grossly normal. Non focal. Motor and sensory grossly intact. Normal co-ordination. DATA Lab 05/02/14 0111 05/01/14 1010 WBC 10.1 10.5 HGB 7.5* 8.6* HCT 23.8* 25.8* PLT 238 299 NEUTOPHILPCT 70.0 87.7 MONOPCT 7.0 3.5 Lab 05/02/14 0111 05/01/14 1010 NA 134* 140 K 5.0* 4.5 CL 108 111* CO2 20* 18* BUN 43* 37* CREATININE 2.30* 2.05* CALCIUM -- -- PROT -- 7.1 BILITOT -- 0.3 ALKPHOS -- -- ALT -- 14 AST -- 10 GLUCOSE -- -- Phosphorus: Lab Results Component Value Date PHOS 4.9* 05/02/2014 No components found with this basename: LABALBU:3 Lab 05/02/14 0111 MG 2.5* No results found for this basename: AMYLASE:3 in the last 168 hours No results found for this basename: PHART:3,PO2ART:3,GBL9CSR:3,S1BAZJZG:3,BEART:[address] 168 hours Lab 05/02/14 0724 05/02/14 0111 05/01/14 1010 APTT 30 28 24 INR -- -- 1.0 PTT -- -- -- No results found for this basename: TSH:3,T3FREE:3,FREET4:3 in the last 168 hours Lab 05/01/14 1503 05/01/14 1010 CKTOTAL 97 96 TROPONINI 1.65* -- TROPONINT -- -- CKMBINDEX 5.6 5.2 Results No Results found for the last 72 hours. Xr Chest 2 View 05/01/2014 ALEXSANDRA HAWKINS 1930 83 years Female XR CHEST 2 VIEW FRONTAL AND LATERAL 05/01/2014 11:56 AM INDICATION: Shortness of breath COMPARISON: None. TECHNIQUE: Two view [place], [place] and lateral views FINDINGS: There is moderate enlargement of the cardiac silhouette. There is no widening or shift of the mediastinum. There is no pneumothorax. The costophreni c angle is blunted bilaterally suggestive of some pleural fluid. Moderate degenerative disc disease and osteopenia is present with several chronic appearing wedge deformities throughou t the thoracic and lumbar spine. The vasculature is mildly distended with slightly increased hazy reticular markings throughout the lung. 05/01/2014 1. Imaging findings concerning for pulmonary edema. Echo Cardiac Adult Complete 05/01/2014 Patient Name: ALEXSANDRA HAWKINS Date of : 1930 Performing Physician: Christiano Guzman MD INDICATIONS CHF CONCLUSIONS 1. Overall left ventricula r systolic function is moderately impaired with, an EF between 30 - 40 %. 2. The left ventri americo is markedly dilated. 3. mid anteroseptal - akinetic; 4. apex - akinetic; 5. The left a trium is mildly dilated. 6. There is ydjv-vr-upnwfhrw aortic regurgitation. 7. Eriw-fh-gnkem ate mitral regurgitation is present. 8. There is moderate pulmonary hypertension. 9. The rig ht ventricular systolic pressure (pulmonary artery systolic pressure), as measured by Dopple r, is 62.61mmHg. 10. There is a small pericardial effusion is located near the right ventric le. 11. There is no evidence of cardiac tamponade. FINDINGS -------- ECG rhythm: Sinus rhyt hm with extra systolic beats. Study: A 2-dimensional transthoracic echocardiogram with m-mod e, spectral and color flow Doppler was perfomed. Study: This was a technically adequate tha dy. Left Ventricle: Overall left ventricular systolic function is moderately impaired with, an EF between 30 - 40 %. Left Ventricle: The left ventricle is markedly dilated. Left Vent ricle: Left ventricular wall thickness is normal. Left Ventricle: mid anteroseptal - akinet ic; Left Ventricle: apex - akinetic; Right Ventricle: The right ventricle is normal in si ze. Left Atrium: The left atrium is mildly dilated. Right Atrium: The right atrial size is n ormal. Aortic Valve: The aortic valve was not well visualized. Aortic Valve: The aortic louis ve is mildly calcified. Aortic Valve: There is xzlr-qc-rvfskwfo aortic regurgitation. Aort ic Valve: There is no evidence of significant aortic stenosis. Mitral Valve: The mitral louis ve is normal. Mitral Valve: Jnoi-mi-yuvvfyew mitral regurgitation is present. Mitral Valve : Moderate mitral annular calcification present. Mitral Valve: Mild thickening of the anter ior mitral valve leaflet. Mitral Valve: There is mild thickening of the posterior mitral va lve leaflet. Tricuspid Valve: The tricuspid valve appears structurally normal. Tricuspid Va lve: Ddmc-no-cglmwqdf tricuspid regurgitation present. Tricuspid Valve: There is moderate p ulmonary hypertension. Tricuspid Valve: The right ventricular systolic pressure (pulmonary artery systolic pressure), as measured by Doppler, is 62.61mmHg. Pulmonic Valve: The pulmoni c valve was not well visualized. Pericardium: There is a small pericardial effusion is locat ed near the right ventricle. Pericardium: There is no evidence of cardiac tamponade. IVC/He patic Veins: The IVC is normal size (1.5-2.5cm) and collapses <50% with sniff, consistent wi th central venous pressures of 10-15mmHg. MEASUREMENTS IVC: 2.09 cm LA Marcia r: 5.82 cm LVOT Diam: 1.79 cm RA Major: 4.51 cm RVIDd: 3.11 cm LVEF MOD A4C: 23.06 % SV MOD A4C: 24.01 ml LVEDV MOD A4C: 104.12 ml LVLd A4C: 8.32 cm LVESV MOD A4C: 80 .11 ml LVLs A4C: 7.57 cm LAEDV(A-L): 71.18 ml LAEDV Index (A-L): 48.42 ml/m2 LAAd A2C: 18.54 cm2 LAEDV A-L A2C: 58.33 ml LAEDV MOD A2C: 55.18 ml LALd A2C: 5.00 cm LAAd A4 C: 22.63 cm2 LAEDV A-L A4C: 72.64 ml LAEDV MOD A4C: 66.83 ml LALd A4C: 5.98 cm MR Fl ow: 105.73 ml/s MR Rad: 0.66 cm MR Als.Mc: 0.37 m/s Ao Diam: 3.13 cm AV Cusp: 1.5 1 cm LA Diam: 3.87 cm LA/Ao: 1.23 %FS: 25.64 % EDV(Teich): 231.10 ml EF(Teich): 4 9.31 % ESV(Teich): 117.12 ml IVSd: 0.68 cm IVSs: 0.92 cm LVIDd: 6.69 cm LVIDs: 4.9 7 cm LVPWd: 0.92 cm LVPWs: 1.37 cm SV(Teich): 113.97 ml D-E Excursion: 1.44 cm E-F S vinny: 0.05 m/s EPSS: 1.21 cm AR Dec Washita: 1.60 m/s2 AR Dec Time: 1757.97 ms AR maxP .96 mmHg AR PHT: 509.81 ms AR Vmax: 2.82 m/s HR: 66.94 BPM AR maxP.20 mm Hg AR meanP.96 mmHg AR Vmax: 2.55 m/s AR Vmean: 2.15 m/s AR VTI: 129.70 cm ARen d P.29 mmHg ARend Vmax: 2.11 m/s HR: 96.87 BPM AV maxP.97 mmHg AV meanP.13 mmHg AV Vmax: 1.22 m/s AV Vmean: 0.83 m/s AV VTI: 23.32 cm SANDOVAL Vmax: 1.90 cm2 SANDOVAL (VTI): 1.87 cm2 LVCI Dopp: 2.90 l/minm2 LVCO Dopp: 4.27 l/min HR: 97.96 BPM LVOT maxP.38 mmHg LVOT meanP.00 mmHg LVSI Dopp: 29.68 ml/m2 LVSV Dopp: 43.64 ml LVOT Vmax: 0.92 m/s LVOT Vmean: 0.67 m/s LVOT VTI: 17.27 cm MCO: 321.79 ms MR maxP.39 mmHg MR meanP.15 mmHg MR Vmax: 3.29 m/s MR Vmean: 2.56 m/s MR VTI: 73. 68 cm MR maxP.16 mmHg MR Vmax: 3.94 m/s MV A Mc: 1.23 m/s MV DecT: 147.26 ms M V E Mc: 0.73 m/s MV E/A Ratio: 0.59 MV PHT: 43.08 ms MVA By PHT: 5.10 cm2 MV A Dur : 89.96 ms Septal e': 0.03 m/s Septal E/e': 21.69 Lateral e': 0.03 m/s Lateral E/e' : 19.47 MR ERO: 0.25 cm2 MR RV: 28.74 ml MR Vmax: 4.18 m/s MR VTI: 113.69 cm P Ve in A: 0.35 m/s P Vein A Dur: 134.94 ms P Vein D: 0.34 m/s P Vein S/D Ratio: 1.82 P Vein S: 0.62 m/s HR: 99.65 BPM PV maxP.89 mmHg PV meanP.75 mmHg PV Vmax: 0 .85 m/s PV Vmean: 0.62 m/s PV VTI: 14.43 cm RAP: 15 mmHg RVSP: 62.60 mmHg TR maxP.60 mmHg TR Vmax: 3.44 m/s TV A Mc: 0.93 m/s TV Dec Washita: 4.08 m/s2 TV Dec Time: 135.12 ms TV E Mc: 0.55 m/s TV E/A Ratio: 0.58 Cardiac Exercise Physiologist: LOLY Authenticated by: Christiano Guzman MD Report Date/Time: 05-01-2014 16:13:14 05/01/2014 1. Overall left ventricular systolic function is moderately impaired with, an EF between 30 - 40 %. 2. The left ventricle is markedly dilated. 3. mid anteroseptal - akinetic ; 4. apex - akinetic; 5. The left atrium is mildly dilated. 6. There is zrbc-ys-kolojfui a ortic regurgitation. 7. Gfli-iv-uhdckfod mitral regurgitation is present. 8. There is modera te pulmonary hypertension. 9. The right ventricular systolic pressure (pulmonary artery syst olic pressure), as measured by Doppler, is 62.61mmHg. 10. There is a small pericardial effus ion is located near the right ventricle. 11. There is no evidence of cardiac tamponade. PROBLEM LIST Principal Problem: *Dyspnea Active Problems: Hypoxia Orthopnea DM2 (diabetes mellitus, type 2) LEANNA (acute kidney injury) Anemia, unspecified Elevated troponin Hyperkalemia ASSESSMENT/ PLAN Dyspnea: This is likely secondary to acute systolic congestive heart failure. Discussed ca se with Dr. Terrell. We have started this patient on aspirin, metoprolol, statin. 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 So at this time Dr. terrell recommends discontinuing heparin drip. Recommendations are to workup anemia and stabilize renal function, and after that a stress test could be considered. Acute kidney injury: Dr. Perry from nephrology has been consulted Diabetes mellitus. Patient is on Levemir and insulin sliding scale. Hemoglobin A1c 7.5. Anemia: Iron deficiency anemia. Patient denies any blood loss. Given her acute systolic c ongestive heart failure and elevated troponin Patient's hemoglobin needs to be higher. IV i marii transfusions were tried but patient had flank pain after that. IV iron was therefore st opped and patient will be given 2 units of packed RBC transfusions. We will also order stoo l for occult blood. Hyperkalemia: This seems to be mild and related to her kidney dysfunction. DVT prophylaxis: Heparin has been held because of low hemoglobin. Heparin can be restarted once bleeding is ruled out. Ordered labs for tomorrow. Code Status: Full Code Spent approximately 45 minutes on patient care of which more than 50% of that time was requ ired on counseling patient at bedside as well as coordinating care with other providers. Tot al time also includes face to face history, physical examination, chart review, computerized division order technician, formulating plan of care. Aylin White MD 05/02/20148:08 AM Chart Correction History Action User Date/Time Reason Details Note Type Change Him Admin Close 2 06/26/14 0806 Changed from H&P. onversio n Transaction, Provider Unknown - 05/01/2014 8:30 PM PDTFormatting of this note might be di fferent from the original. Nurse Progress Note by Terrie Hernandez RN at 05/01/142029 Author: Terrie Hernandez, RN Service: (none) Author Type: Registered Nurse Filed: 05/02/14 0457 Date of Service: 05/01/142029 Status: Signed Prop Maker: Terrie Hernandez RN (Registered Nurse) Pt had episode of nausea at 2030; resolved on its own. Previous Zofran given at 1630. Vladimir l continue to monitor for further episodes of nausea. ohnalivia n, Carmela Douglass RP - 05/01/2014 1:11 PM PDTFormatting of this note might be different from t jj original. Progress Notes by Carmela Dial RPH at 05/01/14 1311 Author: Carmela Dial RPH Service: (none) Author Type: Pharmacist Filed: 05/01/14 1311 Date of Service: 05/01/14 131 Status: Signed Prop Maker: Carmela Dial RPH (Pharmacist) Clinical Pharmacy Note - Renal Dose Adjustment Alexsandra Hawkins 83 y.o. female Ht Readings from Last 1 Encounters: 05/01/14 1.499 m (4' 11") Wt Readings from Last 1 Encounters: No data found for Wt CREATININE Date Value Range Status 05/01/2014 2.05* 0.50 - 1.00 mg/dL Final Testing performed at [facility];[address] [place] [address];[place] [address] Creatinine clearance cannot be calculated - Unknown ideal weight. Pharmacy to renally adjust medications per Dr. Sky Plan: No current weight on file. Will follow up once data is available. Pharmacy will continue to follow and adjust as appropriate. Pharmacist: Carmela Dial 05/01/2014 1:09 PM documente d in this encounter H&P Notes Gabino Sky DO - 05/01/2014 11:20 AM PDT H&P by Gabino Sky DO at 05/01/14 1120 Author: Gabino Sky DO Service: (none) Author Type: Physician Filed: 05/01/14 1901 Date of Service: 05/01/14 112 Status: Addendum Prop Maker: Gabino Sky DO (Physician) Related Notes: Original Note by Gabino Sky DO (Physician) filed at 05/01/141907 HISTORY AND PHYSICAL for Alexsandra Hawkins female 1930 83 y.o. who is being admitted to the adult hospitalist service at [facility]. Chief complaint: dyspnea History of present illness: Symptoms began 3 days ago, first noted when she got off the ruby [employer]tle for [employer] and she got short of breath walking to the casino, which had nev er happened before. Dyspnea with light exertion seemed to progress from there, and last nigh t she noted that simply getting out of bed to go to the bathroom made her extremely short of breath. She denies weight gain and lower extremity swelling. She has no history of heart di sease. Actually she denies having any medical problems but when a family member arrived she explained that the patient has been diagnosed with DM2. The patient relates that several doc tors have told her that she has DM2 and have rx'd her metformin, but she doesn't believe the doctors, has told them "they're liars" and doesn't like taking any medicines. No fever/chil ls, no n/v/c/d, no CP. She presented at [facility] for evaluation, where they suspected heart failure a nd noted elevated cardiac enzymes, at which point they transferred patient to [facility] ED for fu rther care. In our ED she appears stable, on 4L supplemental O2, without CP, eating food, in good spirits, downplaying her symptoms and potential medical problems. Review of systems: Constitutional - negative HENT - negative Eyes - negative Respiratory - as above Cardiovascular - negative Gastrointestinal - negative Genitourinary - negative Musculoskeletal - negative Neurological - negative Hematologic - negative Psychiatric - negative Past medical history: History reviewed. No pertinent past medical history. Past surgical history: Past Surgical History Procedure Date section Lasik Home medications: None Allergies: No Known Allergies Family history: Family History Problem Relation Age of Onset Heart disease Neg Hx Social history: History Alcohol Use Yes Comment: "rarely" History Smoking status Current Every Day Smoker -- 0.2 packs/day History Drug Use No Vitals: Filed Vitals: 05/01/14 1053 BP: 131/60 Pulse: 106 Temp: 98 F Resp: 20 SpO2: 100% Physical exam: Well-appearing, no acute distress HENT: atraumatic, mucus membranes moist, conjunctivae normal, neck supple, no JVD, no trach eal deviation, no LAD Heart: Regular rate and rhythm, no murmur, radial and dorsalis pedis pulses are palpable an d equal Lungs: Low amplitude breath sounds with crackles in lower lobes, upper lobes more clear, no respiratory distress Abdomen: Soft, nontender, nondistended, +bowel sounds in all 4 quadrants, no hepatosplenome shivani Extremities: No cyanosis, clubbing, tenderness, or edema Skin: Dry scaly lesions on B/L ankles (patient states they are chronic) Mental: Behavior, judgment, and cognition appear normal Data: CBC: Lab Results Component Value Date WBC 10.5 05/01/2014 RBC 3.48* 05/01/2014 HGB 8.6* 05/01/2014 HCT 25.8* 05/01/2014 MCV 74.1* 05/01/2014 MCH 24.6* 05/01/2014 MCHC 33.2 05/01/2014 RDW 42.4 05/01/2014 PLT 299 05/01/2014 MPV 8.5 05/01/2014 DIFFTYPE AUTOMATED 05/01/2014 CMP: Lab Results Component Value Date NA 140 05/01/2014 K 4.5 05/01/2014 CL 111* 05/01/2014 CO2 18* 05/01/2014 ANIONGAP 15 05/01/2014 GLUF 222* 05/01/2014 BUN 37* 05/01/2014 CREATININE 2.05* 05/01/2014 BCR 18 05/01/2014 CA 7.7* 05/01/2014 PROT 7.1 05/01/2014 ALB 3.4 05/01/2014 GLOB 3.6 05/01/2014 BILITOT 0.3 05/01/2014 ALP 126* 05/01/2014 AST 10 05/01/2014 ALT 14 05/01/2014 EGFR 25* 05/01/2014 No CXR available for review EKG shows sinus tach rate 114 with J-point elevations V1-3 Labwork at [facility] similar to our bloodwork - troponin there was 0.698, and BNP 2390 Assessment/Plan: (The first item is the principle problem) Dyspnea, Hypoxia, Orthopnea Suspect heart failure (unknown diastolic/systolic, though likely acute) with a BNP of 2390. I have ordered CXR and echo to help clarify this diagnosis. IV Lasix was given at [facility], and I will repeat dose x1 today, then plan for 40 mg IV daily after. Track I/O's strictly and weigh daily, goal negative fluid balance. Monitor renal function closely with this regimen. Any worsening of renal function should be grounds to re-evaluate this plan, possibly with nephrology consult. Fluid restrict 2L, sodium restrict 2 grams. LEANNA (vs possible CKD) Suspect cardiorenal etiology, we will monitor the response closely with goal negative fluid balance through fluid restriction and Lasix, and if renal function improves on this regimen then that is suggestive of a cardiorenal problem, but any worsening of renal function shoul d be grounds to re-evaluate this plan, possibly with nephrology consult. Elevated troponins Likely related to hypoxia and renal failure, monitor for now (repeat at 3 pm) and plan othe rwise as above. see addendum below Anemia Unclear cause, check iron panel, B12/folate, monitor, plan otherwise as above. DM2 Untreated, patient noncompliant / unreceptive previously to medical advice. I will order lo w-dose insulin sliding scale and low-dose long-acting insulin, software educator, and check Ha1c. Date of admission: 05/01/2014 Code Status: Full code Disposition: Admit to inpatient I estimate that this patient will require at least 2 midnights of hospital care for adminis tration of IV medications including Lasix, with close monitoring of respiratory status and r enal function, as well as further testing and diagnostics, and administration of supplementa l oxygen. Untreated, her significant hypoxia could lead to worsening organ dysfunction and e anthony . Gabino Sky, DO 05/01/2014 11:20 AM Addendum Results of testing: New troponin higher 1.6 Echo shows decreased EF 30-40% with wall motion abnormalities. CXR consistent with CHF. I consulted Dr Terrell who will see patient and possibly offer cardiac catheterization tomor row, start IV heparin infusion meantime. I explained all this to patient and family, answered questions. In anticipation of possible cardiac cath tomorrow, in the setting of renal insufficiency, a nd also considering that patient's respiratory status is stable at this time, I will infuse IV fluids lightly overnight 75 mL/hr. I will also cancel tomorrow's Lasix order for now, thi s should be re-assessed tomorrow based on respiratory status, renal fxn, and likelihood of c ath. Gabino Sky DO 05/01/2014 7:06 PM documented in this enc ounter Procedure Notes Jorge Jackman ARNP - 05/05/2014 9:50 AM PDTFormatting of this note might be different fr om the original. Procedures by NIKITA Arceo at 05/05/14 0950 Author: NIKITA Arceo Service: (none) Author Type: Advanced Registered Nurse Prac titioner Filed: 05/05/14 0951 Date of Service: 05/05/14949 Status: Signed Prop Maker: NIKITA Arceo (Advanced Registered Nurse Practitioner) Pre-procedure Diagnoses: 1. Chest pain [786.50] Post-procedure Diagnoses: 1. Chest pain [786.50] Procedures: 1. NM MYOCARDIAL PERFUSION SPECT - STRESS AND REST [ONE655 (Custom)] [facility] Service: Diagnostic Imaging/Nuclear Medicine Cardiac Stress Test Note Type of Stress Test performed (protocol): Pharmacologic stress test Manuelito protocol time (if applicable): N/A Rhythm changes: None Ectopy: PVCs Symptoms experienced during exam: None ST/T wave changes: None Medications administered: Lexiscan 0.4 mg NIKITA Arceo 05/05/2014 9:50 AM documented in this encounter Consult Notes Ritesh Gibson - 05/06/2014 11:10 AM PDT Consults by Ritesh Gibson MD at 05/06/14 1110 Author: Ritesh Gibson MD Service: Gastroenterology Author Type: Physician Filed: 05/06/14 1118 Date of Service: 05/06/141109 Status: Addendum Prop Maker: Ritesh Gibson MD (Physician) Related Notes: Original Note by Ritesh Gibson MD (Physician) filed at 05/06/14 1118 Consult Orders: 1. Inpatient consult to GI [[id number]] ordered by Aylin White MD at 05/05/14 3256 [facility] Service: Gastroenterology Initial Consult Note Date of Admission: 05/01/2014 Reason for Consultation: Microcytic anemia Requesting Physician: Dr. White History Obtained From: patient, chart review CHIEF COMPLAINT: SOB and fatigue HISTORY OF PRESENT ILLNESS The patient is a 83 y.o. female with significant past medical history of below who was admi tted with SOB and fatigue, found to have microcytic anemia and renal insufficiency. Symptom s began 3 days ago. Dyspnea with light exertion seemed to progress from there, and last nigh t she noted that simply getting out of bed to go to the bathroom made her extremely short of breath. She denies weight gain and lower extremity swelling. She has no history of heart di sease. Actually she denies having any medical problems but when a family member arrived she explained that the patient has been diagnosed with DM2. No fever/chills, no n/v/c/d, no CP. Renal team on board and GI also consulted for anemia. She never had EGD and colonoscopy don e in the past. REVIEW OF SYSTEMS ROS obtained from patient. Negative except for pertinent items noted in HPI. Past Medical History Diagnosis Date Diabetes mellitus, type II Smoker Hyperkalemia 05/02/2014 Past Surgical History Procedure Date section Lasik No Known Allergies No prescriptions prior to admission Scheduled Medications aspirin 325 mg Oral Daily with breakfast cholecalciferol 1,000 Units Oral Daily ergocalciferol 50,000 Units Oral Weekly ferrous sulfate (65 FE) 65 mg of iron Oral TID WC furosemide 20 mg Oral Daily insulin aspart 0-3 Units Subcutaneous Nightly insulin aspart 0-6 Units Subcutaneous TID AC insulin detemir 10 Units Subcutaneous Nightly metoprolol 25 mg Oral BID polyethylene glycol 4,000 mL Oral Once [COMPLETED] potassium chloride 40 mEq Oral Once senna-docusate 1 tablet Oral Nightly sevelamer 800 mg Oral TID WC simvastatin 20 mg Oral Nightly sodium bicarbonate 648 mg Oral TID sodium chloride 10 mL Intravenous Q8H [DISCONTINUED] heparin (porcine) 5,000 Units Subcutaneous Q8H ROXANE [DISCONTINUED] senna-docusate 1 tablet Oral BID Continuous Infusions dextrose PRN Medications acetaminophen, acetaminophen, dextrose, dextrose, dextrose, glucagon, glucagon, ondansetron , ondansetron, polyethylene glycol, zolpidem, [DISCONTINUED] heparin (porcine), [DISCONTINUE D] heparin (porcine) Family History Problem Relation Age of Onset Heart disease Neg Hx Diabetes Daughter History Social History Marital Status: Spouse Name: N/A Number of Children: N/A Years of Education: N/A 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 PHYSICAL EXAM Vital Signs: BP 107/55 | Pulse 68 | Temp 98.1 F (36.7 C) (Oral) | Resp 16 | Ht 1.499 m (4' 11") | Wt 55.6 kg (122 lb 9.2 oz) | BMI 24.74 kg/m2 | SpO2 99% | ? No Temp: [98.1 F (36.7 C)-98.7 F (37.1 C)] 98.1 F (36.7 C) (05/06 715) BP: (92-111)/(49-57) 107/55 mmHg (05/06 715) Heart Rate: [68-84] 68 (05/06 715) Resp: [16-18] 16 (05/06 715) SpO2: [94 %-99 %] 99 % (05/06 715) Weight: [55.6 kg (122 lb 9.2 oz)] 55.6 kg (122 lb 9.2 oz) (05/06 17) General: Comfortable HEENT: No thrush. Neck: No JVD, Trachea midline. Psych: Alert and oriented x 3. Calm, cooperative. Cardiovascular: Regular rate and rhythm, no murmurs, no palpable thrills. Normal PMI. Respiratory: Decreased breath sounds at bases. no wheezing or crackles, breathing non labor ed. Chest expansion equal on both sides. No use of accessory muscles. Gastrointestinal: Soft, non-tender, non-distended, positive bowel sounds. No HSM. Musculoskeletal: No edema in bilateral lower extremities. No joint swelling. Skin: foot diabetes skin lesions? Not infected. Neurological: Higher functions grossly normal. Non focal. Motor and sensory grossly intact. Normal co-ordination. DATA CBC: Lab Results Component Value Date WBC 9.9 05/06/2014 RBC 4.30 05/06/2014 HGB 10.9* 05/06/2014 HCT 33.2* 05/06/2014 MCV 77.1* 05/06/2014 MCH 25.4* 05/06/2014 MCHC 33.0 05/06/2014 RDW 45.5 05/06/2014 PLT 241 05/06/2014 MPV 9.1 05/06/2014 DIFFTYPE AUTOMATED 05/06/2014 Hemoglobin/Hematocrit: Lab Results Component Value Date HGB 10.9* 05/06/2014 HCT 33.2* 05/06/2014 CMP: Lab Results Component Value Date NA 135 05/06/2014 K 4.0 05/06/2014 CL 101 05/06/2014 CO2 27 05/06/2014 ANIONGAP 11 05/06/2014 GLUF 93 05/06/2014 BUN 53* 05/06/2014 CREATININE 1.85* 05/06/2014 BCR 29 05/06/2014 CA 8.3* 05/06/2014 CA 7.7* 05/02/2014 PROT 6.3 05/06/2014 ALB 3.3 05/06/2014 GLOB 3.0 05/06/2014 BILITOT 0.3 05/06/2014 ALP 87 05/06/2014 AST 9* 05/06/2014 ALT 7* 05/06/2014 EGFR 28* 05/06/2014 PT/INR: Lab Results Component Value Date INR 1.0 05/01/2014 VITAMIN B12: Lab Results Component Value Date [id number] 263 05/02/2014 FOLATE: Lab Results Component Value Date FOLATE 15.4 05/02/2014 IRON: Lab Results Component Value Date IRON 65 05/02/2014 TIBC: Lab Results Component Value Date IRON 65 05/02/2014 TIBC 407 05/02/2014 LABIRON 16 05/02/2014 FERRITIN: Lab Results Component Value Date FERRITIN 7 05/02/2014 PROBLEM LIST Principal Problem: *Dyspnea Active Problems: Hypoxia Orthopnea DM2 (diabetes mellitus, type 2) LEANNA (acute kidney injury) Elevated troponin Acute systolic CHF (congestive heart failure) Anemia, iron deficiency Vitamin D deficiency Acidosis, metabolic Hyponatremia Hyperphosphatemia ASSESSMENT & PLAN Microcytic anemia in a setting of never had GI work up in the past. Certainly she will reena efit EGD/colonocscopy for r/o any GI bleeding lesions. Benefits and risk of the procedure ex plained to her and her family at bedside and agreed to precede the procedure in AM. Code Status: Full Code Primary Care Physician: LOIS MOELLER Thank you for allowing me to participate in the care of this patient. I have discussed my recommendations with the attending physician. RITESH GIBSON MD 05/06/2014 Aminta Dubon MD - 05/02 2:55 PM PDT Consult* by Aminta Perry MD at 05/02/14 3849 Author: Aminta Perry MD Service: Nephrology Author Type: Physician Filed: 05/02/14 1528 Date of Service: 05/02/14 5225 Status: Signed Prop Maker: Aminta Perry MD (Physician) [facility] Service: NEPHROLOGY CONSULT Note Alexsandra Hawkins 83 y.o. [id number] female PCP LOIS MOELLER Hospital Day: LOS: 1 day Date of Admission: 05/02/2014 Requesting Physician: Dr. White Reason for Admission: Shortness of breath Reason for consult: Renal insufficiency (? CKD with superimposed LEANNA). History Obtained From: patient, chart review CHIEF COMPLAINT: I was short of breath. Seen with grand daughter 'Shira" and son in law "Teodoro". HISTORY OF PRESENT ILLNESS: Alexsandra Hawkins is a 83 y.o. old female with Significant PMH of: DM2, untreated, possibly longstanding. Not taking any medication. Irregular follow up [facility] physician. Ongoing tobacco abuse. Pertinent negative Hx: Autoimmune disorder Recurrent/frequent UTI/Pyelonephritis. Remote rheumatic fever Hepatitis Recent/remote gout. Recent or remote IVDU or blood transfusion. Recent/remote nephrolithiasis Malignancy Tuberculosis Sarcoidosis Current hospitalization with shortness of breath. Summary of current hospitalization: Initially went to [facility] [place] with shortness of breath (sub acute onset, progres sive, without any aggravating or relieving factors). No fever or chest pain. Became short of breath over a day or so (first decided to seek help when she couldn't walk to [place] from the shuttle, something that had never happened before). Went to [facility] [place] where work up revealed elevated troponin level and was trans ferred to [facility]. Subsequent evaluation revealed systolic CHF with EF around 40%, profound anemia and persist ent elevated troponin along with renal insufficiency. [place] to be volume overloaded and started on lasix. Cardiology consultation with Dr. Terrell sought and plan for ? Stress test before definitive study with angiogram given renal insufficiency. Also noted to have iron deficiency anemia and given IV Fe which caused shortness of breath and plan to give blood today. Renal consultation obtained for renal insufficiency (possibly acute on chronic renal failur e) Progression: Indeterminate Associated with DM2, systolic CHF (decompensated) and NSTEMI Aggravating factors: As aboe Relieving factors: none Work up: Previous evaluation by hatchery manager: No Urinalysis and Imaging of the urinary tract never done and ordered. Negative relevant review of system as indicated below Hypotensive episodes History of recent SURESH/ARB use Chronic LE edema Urinary difficulties with nocturia, dysuria, hematuria, flank pain, urgency or frequency . History of coca colored or foamy urine . Recent history of decrease in urine output . Recent illness with nausea, vomiting or diarrhea . Recent hospitalization . Recent/remote NSAID use Recent antibiotics use Recent cardiac catheterization or CT scan with contrast Recent rash or any joint swelling. Recent/remote use of herbal medications at home. Family history: No family history of kidney disease with close family members being on dial ysis at early age. PMH, PSH, Social history, medications, allergies, labs and imaging reviewed. Previous history summarized as above. Prior lab data and imaging reviewed. ROS: Review of systems is as per the history of present illness. Otherwise 14 organ system review of systems was done and is negative. Examination: APPEARANCE: Alexsandra Hawkins is sitting up in bed, short of breath, unable to complete a sen tence without stopping to catch her breath.. VITALS: Reviewed as listed. HEENT: EOMI. Non-icteric sclera.+ JVD LYMPHATIC: No palpable lymphadenopathy. LUNGS: Basal rales. HEART: S1 soft. No S3 .No murmur. ABDOMEN: Soft, no tenderness. Bowel sounds present. No organomegaly or bruits. EXTREMITIES: No LE edema. No cyanosis or clubbing. Peripheral pulses not palpable SKIN: Warm to touch. Circular hyperpigmented lesions on both feet. NEUROLOGIC: No gross focal motor deficit. PSYCH: Alert and oriented x 3, mood and affect ok, BACK: No CVA tenderness. No sacral edema. Allergy: No Known Allergies Prior to Admission medications Not on File Scheduled Medications Reviewed. Continuous Infusions Reviewed. Vital Signs: BP 113/56 | Pulse 98 | Temp 98 F (36.7 C) (Oral) | Resp 22 | Ht 1.499 m (4' 11") | Wt 6 0.1 kg (132 lb 7.9 oz) | BMI 26.75 kg/m2 | SpO2 99% | ? No I&O Detailed Table: I/O last 3 completed shifts: In: 1525 [P.O.:650; I.V.:875] Out: 1950 [Urine:1950] Weight change: Patient's old records and labs were reviewed in detail and summarized. Assessment & Recommendations Alexsandra Hawkins is a 83 y.o. 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 Kidney function to be carefully followed. The risk of progression of kidney disease and/or acute insults resulting in faster progress ion and/or need for renal replacement therapy in the future remains. NSTEMI DM2: Systolic CHF (decompensated). Fe deficiency anemia: Hyperkalemia: Mild hyponatremia: EKG with SR. No ST elevation. CXR with pulmonary edema. Echo Cardiac Adult Complete 05/01/2014 1. Overall left ventricular systolic function is moderately impaired with, an EF between 30 - 40 %. 2. The left ventricle is markedly dilated. 3. mid anteroseptal - akinetic ; 4. apex - akinetic; 5. The left atrium is mildly dilated. 6. There is caon-qq-bbiawjgf a ortic regurgitation. 7. Rxfl-gh-fbgleqxc mitral regurgitation is present. 8. There is modera te pulmonary hypertension. 9. The right ventricular systolic pressure (pulmonary artery syst olic pressure), as measured by Doppler, is 62.61mmHg. 10. There is a small pericardial effus ion is located near the right ventricle. 11. There is no evidence of cardiac tamponade. Lab data evaluation: Lab Results Component Value Date BUN 43* 05/02/2014 CREATININE 2.30* 05/02/2014 EGFR 22* 05/02/2014 NA 134* 05/02/2014 K 5.0* 05/02/2014 CL 108 05/02/2014 CO2 20* 05/02/2014 CA 8.0* 05/02/2014 PHOS 4.9* 05/02/2014 MG 2.5* 05/02/2014 ALB 3.4 05/01/2014 HGB 7.5* 05/02/2014 Component Value Date/Time CREATININE 2.30* 05/02/2014 0111 CREATININE 2.05* 05/01/2014 1010 05/02/14 Assessment: Renal insufficiency likely chronic and will have to be carefully followed with diuresis. Check for Proteinuria given history of DM2. Hypertension well controlled. Clinically and radiologically volume overloaded with no lower extremity edema, but with JVD, orthopnea. Mild hyponatremia with volume overload. Hyperkalemia in setting of reduced urine output and likely hypo renin hypo reginald state co mmon in diabetics. Ca target range. Borderline hypomagnesemia with renal insufficiency and reduced renal clearance. Albumin borderline low. PO4 borderline high with renal insufficiency and reduced renal clearance. Low CO2 and needs ABG to further define acid base balance. Marked Fe deficiency anemia noted and would need age appropriate GI work up with EGD/col onoscopy to exclude GI loss. Recommendations Diurese with IV lasix for now given decompensated systolic CHF. (watch for hypokalemia, hypophosphatemia, hypomagnesemia, alkalosis with lasix) No SURESH/ARB for now. Obtain work up with renal sonogram and serological work up to exclude proteinuria. Reassess kidney function after diuresis and completion of work up to see what her baseline creatinine is. Regardless with history of smoking and with longstanding untreated DM2 likely has CKD which would increase her risk of IZZY. No IVF. 2 gm Na, 2 gm K, 1 gm PO4, 1 gm/kg protein diet. Please dose all medications for an eGFR of less than 30 ml/min/1.73 m2. No IV contrast studies. No NSAIDS/TROY 2 inhibitors, Aluminum/magnesium containing antacids, magnesium/phosphate con taining enemas. Fluid restriction 1.5 L in 24 hr period. Strict I/O (ortega catheter may be placed for accurate estimation). Daily CMP (including Mg, PO4). Plan of care discussed with Dr. White I thank Dr White for giving me the opportunity to take part in the care of Alexsandra Hawkins [facility] multiple complex medical problems. Do not hesitate to contact me if you have any questions. AMINTA PERRY MD 05/02/2014 Seen earlier in the day and charting completed later after rounds. Dictation software, [employer], used which may contain error for similar sounding words. Personal communication requested for any clarification. 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 avage, Leandro moser MD - 05/02/2014 9:05 AM PDTFormatting of this note might be different from the origin al. Consults by Leandro Terrell MD at 05/02/14 0905 Author: Leandro Terrell MD Service: (none) Author Type: Physician Filed: 05/05/14 1140 Date of Service: 05/02/14904 Status: Signed Prop Maker: Leandro Terrell MD (Physician) Related Notes: Original Note by Leandro Terrell MD (Physician) filed at 05/02/14 09 10 REASON FOR CONSULTATION Evaluate cardiac status. HISTORY OF PRESENT ILLNESS This is an 83-year-old female who denies prior history mostly because she d oes not go to doctors and does not believe what they say when she goes but has been told she was diabetic in the past and just ignored that. She was going to the [place], which is her d aily routine, and got off the shuttle bus and was noted to be quite short of breath, so much so that she decided to go to the emergency room. This was a new sensation for her. There she was noted to have an abnormal ECG with minimal ST elevation anteriorly, though in retrospect it appears chronic, and a mild elevation of troponin. She also had a hemoglobin of 8.4 but for some reason this was not focused upon, and she was transferred here for evalu ation of possible acute anterior CT. She did not complain of any chest pain, just shortness of breath. She was given Lasix and diuresed and felt back to normal. Subsequently here her troponin has risen. This morning it is 1.65. However, her hemoglobin has also fallen at 7.4 this morning, and her creatinine was noted to be 2.3, up from 2 yeste rday. She, of course, denies any history of renal dysfunction. HOME MEDICATIONS None. ALLERGIES NONE. HABITS She is a smoker. She will not tell me how much she smokes. Her daughters indicate it is at least a pack a day and has been for at least 60 years. She has a couple of alcoholic beverag es a week and 3 cups of coffee a day. SOCIAL HISTORY She is , with 5 children who survived to adulthood, one of whom of cancer. Russ patel of unknown causes, and she does not know what age they were. PHYSICAL EXAMINATION GENERAL: A well-developed, well-nourished, 83-year-old female who is alert and oriented x4, in no acute distress. VITAL SIGNS: Blood pressure is 117/58, pulse is in the 90s and regular, respirations are 20 and unlabored. She is afebrile. NECK: Neck shows no JVD, no bruits. LUNGS: Clear, with adequate air movement. HEART: Regular, without murmur, rub, or gallop. ABDOMEN: Soft. Bowel sounds are present. Nontender, nondistended. EXTREMITIES: No cyanosis, clubbing, or edema. Pulses are intact and symmetrical. GENITOURINARY: Deferred. NEUROLOGIC: Nonfocal. 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 ECHOCARDIOGRAM Echocardiogram does show a large area of anterior apical akinesis with overall ejection fra ction 40% to 45%. IMPRESSION I think her symptoms come from her anemia, and this needs to be worked up first. Though she has had a coronary event, it is not the reason she was admitted, and her electrocardiogram reflects just the aged event. RECOMMENDATIONS After her renal and anemic issues are resolved, perhaps a nuclear stress test would be most appropriate to see if there is any remaining viability. onversion Transaction, Provider Unknown - 05/01/2014 1:56 PM PDTFormatting of this note might be dif ferent from the original. Consults by Cristal Garcia RD, HARLEY at 05/01/14 7109 Author: Cristal Garcia RD, CDE Service: (none) Author Type: Petroleum Refining Firer Filed: 05/01/14 1408 Date of Service: 05/01/14 8125 Status: Signed Prop Maker: Cristal Garcia RD, CDE (Petroleum Refining Firer) Consult Orders: 1. Petroleum Refining Firer Consult [[id number]] ordered by Gabino Sky DO at 05/01/14 1114 Met with pt and daughter. 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 States that about 4-5 years ago she was told she had diabe tammie and that the doctor started her on "4 pills" - the pills made her sick, so the doctor cu t her down to 2 pills, but those made her sick as well, so she stopped taking them. Several years later she went to another doctor who told her she had diabetes and started her on ano ther pill, but she stopped that also. Reports that she told both these doctors that they we re "liars". She states that she has had several glucometers, but that she "threw them all a way". Daughter states she has diabetes and that pt has several other family members with diabetes . Pt states that she has modified her diet. Has had one blood sugar here - was 222 at 1010 this am. HbA1 has been ordered. Has been s tarted on low dose correctional scale insulin and 10 units of Levemir at hs. Pt does have d ecreased kidney function with gfr of 25. Will follow for blood sugars and for further educa tion, as pt about to have a diagnostic procedure. Cristal Garcia RD, MPH, CDE, Petroleum Refining Firer 05/01/2014 2:08 PM docume nted in this encounter ED Notes Gomez Whitehead DO - 05/01/2014 10:25 AM PDTFormatting of this note might be differen t from the original. ED Provider Notes by Gomez Whitehead DO at 05/01/14 1025 Author: Gomez Whitehead DO Service: (none) Author Type: Physician Filed: 05/01/14 1144 Date of Service: 05/01/14 1025 Status: Signed Prop Maker: Gomez Whitehead DO (Physician) Procedure Orders: 1. Critical Care [[id number]] ordered by Gomez Whitehead DO at 05/01/14 1143 [facility] Department of Emergency Medicine Provider Name: report from Valeria NASH at [facility] Pertinent History and Concerns: ST elevation leads 1 and 2. came to ED with SOB this radha cruz. hx of some chest pain a couple of days ago Relevant Labs or Studies: troponin 0.698 glucose 222 GFR 23 Relevant Medications: lasix 40mg 4 baby asa 2 neb tx. Current Reported Vital Signs: 99% on 2L (05/01/14 0914 : , JOJO L) 11:44 AM History of Present Illness Patient Identification Alexsandra Hawkins is a 83 y.o. female. Patient information was obtained from patient and past medical records. History/Exam limitations: none. Patient presented to the Emergency Department by: [facility] Chief Complaint Chief Complaint Patient presents with Shortness of Breath DENIES chest pain Patient states that 2 days ago she noticed some shortness of breath with her usual activiti es. Last night the first of breath increased significantly and she was unable to go to the bathroom without getting short of breath. She denies any history of prior cardiac or pulmon sia events similar to this. She denies any recent upper respiratory infections. She denies any chest pain, nausea, or diaphoresis with these symptoms. She states that the shortness of breath is worsened with exertion and relieved with rest. She denies any other complaints at this time. Care prior to arrival consisted of IV Lasix at outside facility with minimal reduction of her exertional dyspnea however patient states that she has urinated approximat breana 1 L since being provided the IV Lasix. History reviewed. No pertinent past medical history. Past Surgical History Procedure Date section Lasik Prior to Admission medications Not on File No Known Allergies History Social History Marital Status: Spouse Name: N/A Number of Children: N/A Years of Education: N/A Occupational History Not on file. Social History Main Topics Smoking status: Current Every Day Smoker -- 0.2 packs/day Smokeless tobacco: Not on file Alcohol Use: Yes Comment: "rarely" Drug Use: No Sexually Active: Other Topics Concern Not on file Social History Narrative No narrative on file Family History Problem Relation Age of Onset Heart disease Neg Hx Review of Systems Review of Systems Constitutional: Negative for fever, chills and diaphoresis. Respiratory: Positive for shortness of breath. Negative for cough and sputum production. Cardiovascular: Positive for orthopnea. Negative for chest pain and palpitations. Gastrointestinal: Negative for nausea and vomiting. Musculoskeletal: Negative for myalgias and joint pain. All other systems reviewed and are negative. Physical Exam BP 166/69 | Pulse 110 | Temp 97 F (36.1 C) (Oral) | Resp 24 | SpO2 100% Vital signs interpretation: Hypertensive, tachycardic, otherwise normal Pulse Oximetry interpretation: Normal Gen: A&Ox3, well-appearing, no acute distress Head: Normocephalic, no apparent injury noted Eyes: no conjunctivitis, no scleral icterus Ears: No swelling or erythema, no drainage noted Nose: no rhinorrhea, no epistaxis Mouth: no apparent dysfunction, no gross injury Neck: Supple, no meningismus, no obvious swelling or mass CV: Tachycardic but regular rhythm, no murmurs, rubs or clicks Resp: No respiratory distress, no retractions, mild Rales at the bases bilaterally, no rhon chi Abd: Round, no distension Ext: normal ROM of bilateral upper and lower extremities, no joint swelling, no deformitie s Back: normal ROM, no deformity noted Skin: No rash, normal color, warm, dry : Deferred Rect: Deferred Neuro: no focal neurological deficits noted, cerebellum normal as tested, no sensory or mot or deficiencies noted Psych: normal affect, no emotional distress noted, mentation is appropriate for age Medical Decision Making and Emergency Department Course ED Department Course Patient is transferred from [facility] due to 2 new-onset congestive heart failur e and mild elevation of her troponin and a BNP of 2400. Patient also was noted to have mild ST elevations in leads V1 through V4, this was discussed with Dr. Wade who stated the lyric ent is not undergoing an acute ST elevation CT. I will repeat the patient's troponin and re peat basic labs, I anticipate admitting the patient to the hospitalist service and they will arrange for cardiology consult as needed. Differential diagnosis includes but is not limit ed to: New-onset congestive heart failure, acute non-ST elevation CT, pneumonia, pulmonary e annmarie [address] Sky who agrees with care plan and will see patient in the ED . Records Reviewed Old medical records. Nursing notes. Laboratory Evaluation Results Procedure Component Value Ref Range Date/Time Cardiac Panel [[id number]] (Abnormal) Collected:05/01/14 1010 Order Status:Completed Updated:05/01/14 1038 WBC 10.5 3.8 - 11.0 K/uL RBC 3.48 (L) 3.70 - 5.10 M/uL HGB 8.6 (L) 11.3 - 15.5 g/dL HCT 25.8 (L) 34.0 - 46.0 % MCV 74.1 (L) 80.0 - 100.0 fl MCH 24.6 (L) 27.0 - 34.0 pg MCHC 33.2 32.0 - 35.5 g/dL RDW SD 42.4 37 - 53 fl PLT 299 150 - 400 K/uL MPV 8.5 fl Platelet Estimate ADEQUATE Diff Comment Result: SLIDE SCANNED, AGREES WITH AUTOMATED RESULTS. MORPHOLOGY 1+ DIFF TYPE AUTOMATED NEUTROPHILS 87.7 % LYMPHOCYTES 8.6 % MONOCYTES 3.5 % EOSINOPHILS 0.1 % BASOPHILS 0.1 % NEUTROPHILS ABS 9.2 (H) 1.9 - 7.4 K/uL LYMPHOCYTES ABS 0.9 (L) 1.0 - 3.9 K/uL MONOCYTES ABS 0.4 0 - 0.8 K/uL EOSINOPHILS ABS 0.0 0 - 0.5 K/uL BASOPHILS ABS 0.0 0 - 0.1 K/uL SODIUM 140 135 - 143 mmol/L POTASSIUM 4.5 3.5 - 4.9 mmol/L CHLORIDE 111 (H) 99 - 109 mmol/L CO2 18 (L) 23 - 32 mmol/L ANION GAP AGAP 15 5 - 20 mmol/L GLUCOSE 222 (H) 65 - 99 mg/dL BUN 37 (H) 8 - 25 mg/dL CREATININE 2.05 (H) 0.50 - 1.00 mg/dL BUN/CREAT 18 CALCIUM 7.7 (L) 8.5 - 10.2 mg/dL TOTAL PROTEIN 7.1 6.3 - 8.2 g/dL Albumin 3.4 3.3 - 4.8 g/dL GLOBULIN 3.6 1.3 - 4.9 g/dL A/G 0.9 (L) 1.0 - 2.4 TBIL 0.3 0.1 - 1.5 mg/dL ALK PHOS 126 (H) 35 - 115 U/L AST 10 10 - 45 U/L ALT 14 10 - 65 U/L EGFR 25 (L) >60 mL/min/1.73m2 CPK 96 30 - 240 U/L INR 1.0 APTT 24 23 - 32 seconds MMB 5.0 (H) 0.5 - 3.6 ng/mL CK-MB Index 5.2 POC cardiac troponin [[id number]] (Abnormal) Collected:05/01/14 1014 Order Status:Completed Updated:05/01/14 1028 POC CARDIAC TROPONIN 0.86 (HH) 0.00 - 0.10 ng/mL I personally reviewed the lab results and they have been posted to the chart. Pertinent po sitive and negative findings have been addressed appropriately. Radiology and EKG Evaluation Imaging Results None EKG Interpretation Rhythm: Sinus Ventricular Rate: 109 UT Interval: Normal ST Segments: Elevation present in Leads V1 through V4 not consistent with acute STEMI Significant Q-waves: None Blocks: None Additional Comments: Unchanged from previous EKG of same date and time of 651 ED Diagnoses Final diagnoses Congestive heart failure Anemia Elevated troponin Mild Acute renal failure Disposition: ED Disposition Admit/Observation Bed request special needs: Telemetry Diagnosis?: New-onset congestive heart failure Follow-up Information None Discharge Medications: New Prescriptions No new medications Dr. Gomez Lehman. Minh Najera Additional Documentation Critical Care Performed by: GOMEZ WHITEHEAD Authorized by: GOMEZ WHITEHEAD Total critical care time: 35 minutes Critical care time was exclusive of separately billable procedures and treating other patie nts. Critical care was necessary to treat or prevent imminent or life-threatening deterioration of the following conditions: cardiac failure, renal failure and respiratory failure. Critical care was time spent personally by me on the following activities: development of t reatment plan with patient or surrogate, evaluation of patient's response to treatment, exam ination of patient, obtaining history from patient or surrogate, ordering and performing anthony atments and interventions, ordering and review of laboratory studies, pulse oximetry, re-kim luation of patient's condition and review of old charts. Gomez Whitehead DO 05/01/14 1144 onversio n Transaction, Provider Unknown - 05/01/2014 10:15 AM PDTFormatting of this note might be di fferent from the original. ED Notes by Anny Subramanian RN at 05/01/14 1015 Author: Anny Subramanian RN Service: (none) Author Type: Registered Nurse Filed: 05/01/14 1016 Date of Service: 05/01/14 1015 Status: Signed Prop Maker: Anny Subramanian RN (Registered Nurse) Pt placed on continous cardiac monitoring, tele notified Anny Subramanian RN 05/01/14 1016 onver dave Transaction, Provider Unknown - 05/01/2014 9:56 AM PDT ED Notes by Anny Subramanian RN at 05/01/14 0956 Author: Anny Subramanian RN Service: (none) Author Type: Registered Nurse Filed: 05/01/14 1017 Date of Service: 05/01/14 0956 Status: Signed Prop Maker: Anny Subramanian RN (Registered Nurse) Pt became short of breath with minimal ambulation to bathroom. Bedside commode placed in p t room. Anny Subramanian RN 05/01/14 1017 onver dave Transaction, Provider Unknown - 05/01/2014 9:42 AM PDT ED Notes by Anny Subramanian RN at 05/01/14 0942 Author: Anny Subramanian RN Service: (none) Author Type: Registered Nurse Filed: 05/01/14 0942 Date of Service: 05/01/14 0942 Status: Signed Prop Maker: Anny Subramanian RN (Registered Nurse) Bed:13
Expected date:
Expected time:
Means of arrival:
Comments:
rabSantos dennis MD - 05/01/2014 8:21 AM PDT ED Provider Notes by Santos Fabian MD at 05/01/14820 Author: Santos Fabian MD Service: (none) Author Type: Physician Filed: 05/01/14821 Date of Service: 05/01/14820 Status: Signed Prop Maker: Santos Fabian MD (Physician) Alexsandra Hawkins, 83-year-old [facility] in [facility] emergency department Presents with shortness of breath, ST elevations in V1 through V4 however only 1-[address] Montiel from cardiology, patient not currently having any chest pain, hence w ill not go straight to cardiac catheter Has rales, and BNP 2400, interstitial prominence suggestive of pulmonary edema, greater rig ht lysis improving at this time, did have rails. Troponin is 0.7 Lasix 40 mg IV, also received DuoNeb for bronchospasm, sinus rhythm, rate 110, I discussed with transferring physician giving heparin secondary to elevated troponin, and EKG abnormalities. Additional Documentation Procedures Santos Fabian MD 05/01/14821 documented in this encounter Miscellaneous Notes Op Note - Ritesh Gibson - 05/07/2014 2:11 PM PDT Op Note by Ritesh Gibson MD at 05/07/14 141 Author: Ritesh Gibson MD Service: Gastroenterology Author Type: Physician Filed: 05/07/14 1413 Date of Service: 05/07/141410 Status: Signed Prop Maker: Ritesh Gibson MD (Physician) [facility] Service: Gastroenterology ENDOSCOPY SUITE PROCEDURE NOTE Colonoscopy Indications: iron deficiency anemia Consent: The benefits, risks (bleeding, perforation, infection and reaction to medication) , and alternatives to the procedure were discussed and informed consent was obtained from th e patient. Preparation: EKG, pulse, pulse oximetry, and blood pressure were monitored throughout the procedure. Medications: MAC Digital Rectal Exam: Normal rectal exam. Procedure: The Olympus colonoscope was passed through the anus under direct visualization and was advanced with ease to the cecum, confirmed by appendiceal orifice and ileocecal valv e. The scope was withdrawn and the mucosa was carefully examined. The quality of the prepara tion was good. The views were good. The patient's toleration of the procedure was good. Ther e were no apparent complications. Findings: -angiodysplasia, single, involving the cecum, oozing blood with contact; the les ion was treated with argon plasma coagulation, followed by a endoclip. -diverticulosis, moderate in degree, involving the sigmoid -hemorrhoids (internal), Moderate in size Specimens: Complications: None; patient tolerated the procedure well. Impression: Cecal AVM, s/p cauterization. EBL: Minimal Recommendations: -Follow clinical symptoms and laboratory studies for evidence of rebleedi ng., -Follow up on GI clinic in 2 weeks. RITESH GIBSON MD 05/07/2014 p Note - Ritesh Gibson - 05/07/2014 2:07 PM PDT Op Note by Ritesh Gibson MD at 05/07/14 140 Author: Ritesh Gibson MD Service: Gastroenterology Author Type: Physician Filed: 05/07/14 1411 Date of Service: 05/07/141406 Status: Signed Prop Maker: Ritesh Gibson MD (Physician) [facility] Service: Gastroenterology ENDOSCOPY SUITE PROCEDURE NOTE Esophagogastroduodenoscopy Indications: Anemia and blood in stool Consent: The benefits, risks (bleeding, perforation, infection and reaction to medication) , and alternatives to the procedure were discussed and informed consent was obtained from th e patient. Preparation: EKG, pulse, pulse oximetry, and blood pressure were monitored throughout the procedure. Medications: MAC Procedure: The gastroscope was passed through the mouth under direct visualization and was advanced with ease to the 2nd portion of the duodenum. The scope was withdrawn and the muco sa was carefully examined. The views were good. There were no apparent complications. Findings: Z line at 39 cm and diminutive hiatal hernia. Mild erythema gastropathy with few claudia erosion at antrum and biopsy obtained. Normal duodenal mucosa and random biopsy was ob tained. Specimens: Gastric and duoednal Complications: None; patient tolerated the procedure well. Impression: Erosive gastritis, s/p biopsy EBL: Minimal Recommendations: Colonoscopy as planned. RITESH GIBSON MD 05/07/2014 documented in this encount er Plan of Treatment Not on filedocumented as of this encounter Procedures + +--------+ + + + | Procedure Name | Priori | Date/Time | Associated Diagnosis | Comments | | | ty | | | | + +--------+ + + + | POC GLUCOSE | Routin | 05/07/2014 | | Results for this | | | e | 4:05 PM | | procedure are in the | | | | PDT | | results section. | + +--------+ + + + | POC GLUCOSE | Routin | 05/07/2014 | | Results for this | | | e | 12:17 PM | | procedure are in the | | | | PDT | | results section. | + +--------+ + + + | POC GLUCOSE | Routin | 05/07/2014 | | Results for this | | | e | 5:30 AM | | procedure are in the | | | | PDT | | results section. | + +--------+ + + + | EXTERNAL LAB: CBC | Routin | 05/07/2014 | | Results for this | | | e | 4:50 AM | | procedure are in the | | | | PDT | | results section. | + +--------+ + + + | PHOSPHORUS | Routin | 05/07/2014 | | Results for this | | | e | 4:50 AM | | procedure are in the | | | | PDT | | results section. | + +--------+ + + + | MAGNESIUM | Routin | 05/07/2014 | | Results for this | | | e | 4:50 AM | | procedure are in the | | | | PDT | | results section. | + +--------+ + + + | COMPREHENSIVE | Routin | 05/07/2014 | | Results for this | | METABOLIC PANEL | e | 4:50 AM | | procedure are in the | | | | PDT | | results section. | + +--------+ + + + | TISSUE REQUEST FOR | Routin | 05/07/2014 | | Results for this | | PATHOLOGY (NON-ORD) | e | 12:00 AM | | procedure are in the | | | | PDT | | results section. | + +--------+ + + + | POC GLUCOSE | Routin | 05/06/2014 | | Results for this | | | e | 9:28 PM | | procedure are in the | | | | PDT | | results section. | + +--------+ + + + | POC GLUCOSE | Routin | 05/06/2014 | | Results for this | | | e | 4:40 PM | | procedure are in the | | | | PDT | | results section. | + +--------+ + + + | POC GLUCOSE | Routin | 05/06/2014 | | Results for this | | | e | 11:33 AM | | procedure are in the | | | | PDT | | results section. | + +--------+ + + + | POC GLUCOSE | Routin | 05/06/2014 | | Results for this | | | e | 5:08 AM | | procedure are in the | | | | PDT | | results section. | + +--------+ + + + | EXTERNAL LAB: CBC | Routin | 05/06/2014 | | Results for this | | | e | 4:30 AM | | procedure are in the | | | | PDT | | results section. | + +--------+ + + + | PHOSPHORUS | Routin | 05/06/2014 | | Results for this | | | e | 4:30 AM | | procedure are in the | | | | PDT | | results section. | + +--------+ + + + | MAGNESIUM | Routin | 05/06/2014 | | Results for this | | | e | 4:30 AM | | procedure are in the | | | | PDT | | results section. | + +--------+ + + + | COMPREHENSIVE | Routin | 05/06/2014 | | Results for this | | METABOLIC PANEL | e | 4:30 AM | | procedure are in the | | | | PDT | | results section. | + +--------+ + + + | POC GLUCOSE | Routin | 05/05/2014 | | Results for this | | | e | 9:21 PM | | procedure are in the | | | | PDT | | results section. | + +--------+ + + + | POC GLUCOSE | Routin | 05/05/2014 | | Results for this | | | e | 3:39 PM | | procedure are in the | | | | PDT | | results section. | + +--------+ + + + | EXTERNAL LAB: OCCULT | Routin | 05/05/2014 | | Results for this | | BLOOD, SCREENING | e | 1:02 PM | | procedure are in the | | | | PDT | | results section. | + +--------+ + + + | POC GLUCOSE | Routin | 05/05/2014 | | Results for this | | | e | 11:47 AM | | procedure are in the | | | | PDT | | results section. | + +--------+ + + + | NM MYOCARDIAL | Routin | 05/05/2014 | | Results for this | | PERFUSION MULT SPECT | e | 10:49 AM | | procedure are in the | | | | PDT | | results section. | + +--------+ + + + | POC GLUCOSE | Routin | 05/05/2014 | | Results for this | | | e | 5:59 AM | | procedure are in the | | | | PDT | | results section. | + +--------+ + + + | EXTERNAL LAB: CBC | Routin | 05/05/2014 | | Results for this | | | e | 4:15 AM | | procedure are in the | | | | PDT | | results section. | + +--------+ + + + | PHOSPHORUS | Routin | 05/05/2014 | | Results for this | | | e | 4:15 AM | | procedure are in the | | | | PDT | | results section. | + +--------+ + + + | MAGNESIUM | Routin | 05/05/2014 | | Results for this | | | e | 4:15 AM | | procedure are in the | | | | PDT | | results section. | + +--------+ + + + | COMPREHENSIVE | Routin | 05/05/2014 | | Results for this | | METABOLIC PANEL | e | 4:15 AM | | procedure are in the | | | | PDT | | results section. | + +--------+ + + + | POC GLUCOSE | Routin | 05/04/2014 | | Results for this | | | e | 9:37 PM | | procedure are in the | | | | PDT | | results section. | + +--------+ + + + | POC GLUCOSE | Routin | 05/04/2014 | | Results for this | | | e | 3:46 PM | | procedure are in the | | | | PDT | | results section. | + +--------+ + + + | POC GLUCOSE | Routin | 05/04/2014 | | Results for this | | | e | 11:38 AM | | procedure are in the | | | | PDT | | results section. | + +--------+ + + + | POC GLUCOSE | Routin | 05/04/2014 | | Results for this | | | e | 5:39 AM | | procedure are in the | | | | PDT | | results section. | + +--------+ + + + | EXTERNAL LAB: CBC | Routin | 05/04/2014 | | Results for this | | | e | 4:57 AM | | procedure are in the | | | | PDT | | results section. | + +--------+ + + + | PHOSPHORUS | Routin | 05/04/2014 | | Results for this | | | e | 4:57 AM | | procedure are in the | | | | PDT | | results section. | + +--------+ + + + | MAGNESIUM | Routin | 05/04/2014 | | Results for this | | | e | 4:57 AM | | procedure are in the | | | | PDT | | results section. | + +--------+ + + + | COMPREHENSIVE | Routin | 05/04/2014 | | Results for this | | METABOLIC PANEL | e | 4:57 AM | | procedure are in the | | | | PDT | | results section. | + +--------+ + + + | POC GLUCOSE | Routin | 05/03/2014 | | Results for this | | | e | 9:12 PM | | procedure are in the | | | | PDT | | results section. | + +--------+ + + + | POC GLUCOSE | Routin | 05/03/2014 | | Results for this | | | e | 4:15 PM | | procedure are in the | | | | PDT | | results section. | + +--------+ + + + | POC GLUCOSE | Routin | 05/03/2014 | | Results for this | | | e | 11:27 AM | | procedure are in the | | | | PDT | | results section. | + +--------+ + + + | POC GLUCOSE | Routin | 05/03/2014 | | Results for this | | | e | 5:39 AM | | procedure are in the | | | | PDT | | results section. | + +--------+ + + + | HIV 1 AND 2 ANTIBODY | Routin | 05/03/2014 | | Results for this | | DIFFERENTIATION | e | 3:54 AM | | procedure are in the | | | | PDT | | results section. | + +--------+ + + + | EXTERNAL LAB: CBC | Routin | 05/03/2014 | | Results for this | | | e | 3:54 AM | | procedure are in the | | | | PDT | | results section. | + +--------+ + + + | PROTEIN | Routin | 05/03/2014 | | Results for this | | ELECTROPHORESIS AND | e | 3:54 AM | | procedure are in the | | JESSICA, SERUM | | PDT | | results section. | + +--------+ + + + | PHOSPHORUS | Routin | 05/03/2014 | | Results for this | | | e | 3:54 AM | | procedure are in the | | | | PDT | | results section. | + +--------+ + + + | MAGNESIUM | Routin | 05/03/2014 | | Results for this | | | e | 3:54 AM | | procedure are in the | | | | PDT | | results section. | + +--------+ + + + | COMPREHENSIVE | Routin | 05/03/2014 | | Results for this | | METABOLIC PANEL | e | 3:54 AM | | procedure are in the | | | | PDT | | results section. | + +--------+ + + + | POC GLUCOSE | Routin | 05/02/2014 | | Results for this | | | e | 9:58 PM | | procedure are in the | | | | PDT | | results section. | + +--------+ + + + | EOSINOPHIL SMEAR, | Routin | 05/02/2014 | | Results for this | | URINE | e | 5:21 PM | | procedure are in the | | | | PDT | | results section. | + +--------+ + + + | US RENAL LIMITED | Routin | 05/02/2014 | | Results for this | | | e | 5:13 PM | | procedure are in the | | | | PDT | | results section. | + +--------+ + + + | POC GLUCOSE | Routin | 05/02/2014 | | Results for this | | | e | 4:14 PM | | procedure are in the | | | | PDT | | results section. | + +--------+ + + + | YAMILETH ALEKSANDER, REFLEX | Routin | 05/02/2014 | | Results for this | | | e | 3:36 PM | | procedure are in the | | | | PDT | | results section. | + +--------+ + + + | IRON AND IRON | Routin | 05/02/2014 | | Results for this | | BINDING CAPACITY | e | 3:36 PM | | procedure are in the | | | | PDT | | results section. | + +--------+ + + + | KAPPA/LAMBDA LIGHT C | Routin | 05/02/2014 | | Results for this | | | e | 3:36 PM | | procedure are in the | | | | PDT | | results section. | + +--------+ + + + | HEPATITIS A, B, C | Routin | 05/02/2014 | | Results for this | | PANEL, REFLEX | e | 3:36 PM | | procedure are in the | | | | PDT | | results section. | + +--------+ + + + | C3 AND C4 | Routin | 05/02/2014 | | Results for this | | | e | 3:36 PM | | procedure are in the | | | | PDT | | results section. | + +--------+ + + + | VITAMIN D, | Routin | 05/02/2014 | | Results for this | | DEFICIENCY SCREEN | e | 3:36 PM | | procedure are in the | | (25-HYDROXY) | | PDT | | results section. | + +--------+ + + + | PARATHYROID HORMONE, | Routin | 05/02/2014 | | Results for this | | INTACT AND CALCIUM | e | 3:36 PM | | procedure are in the | | | | PDT | | results section. | + +--------+ + + + | GLOMERULAR BASEMENT | Routin | 05/02/2014 | | Results for this | | MEMBRANE AB, IGG | e | 3:36 PM | | procedure are in the | | | | PDT | | results section. | + +--------+ + + + | URIC ACID | Routin | 05/02/2014 | | Results for this | | | e | 3:36 PM | | procedure are in the | | | | PDT | | results section. | + +--------+ + + + | FERRITIN | Routin | 05/02/2014 | | Results for this | | | e | 3:36 PM | | procedure are in the | | | | PDT | | results section. | + +--------+ + + + | POC GLUCOSE | Routin | 05/02/2014 | | Results for this | | | e | 11:25 AM | | procedure are in the | | | | PDT | | results section. | + +--------+ + + + | TROPONIN I | Routin | 05/02/2014 | | Results for this | | | e | 8:11 AM | | procedure are in the | | | | PDT | | results section. | + +--------+ + + + | CK-MB | Routin | 05/02/2014 | | Results for this | | | e | 8:11 AM | | procedure are in the | | | | PDT | | results section. | + +--------+ + + + | CK TOTAL | Routin | 05/02/2014 | | Results for this | | | e | 8:11 AM | | procedure are in the | | | | PDT | | results section. | + +--------+ + + + | PTT | Routin | 05/02/2014 | | Results for this | | | e | 7:24 AM | | procedure are in the | | | | PDT | | results section. | + +--------+ + + + | POC GLUCOSE | Routin | 05/02/2014 | | Results for this | | | e | 5:04 AM | | procedure are in the | | | | PDT | | results section. | + +--------+ + + + | EXTERNAL LAB: CBC | Routin | 05/02/2014 | | Results for this | | | e | 1:11 AM | | procedure are in the | | | | PDT | | results section. | + +--------+ + + + | IRON AND IRON | Routin | 05/02/2014 | | Results for this | | BINDING CAPACITY | e | 1:11 AM | | procedure are in the | | | | PDT | | results section. | + +--------+ + + + | VITAMIN B-12 | Routin | 05/02/2014 | | Results for this | | | e | 1:11 AM | | procedure are in the | | | | PDT | | results section. | + +--------+ + + + | PTT | Routin | 05/02/2014 | | Results for this | | | e | 1:11 AM | | procedure are in the | | | | PDT | | results section. | + +--------+ + + + | PHOSPHORUS | Routin | 05/02/2014 | | Results for this | | | e | 1:11 AM | | procedure are in the | | | | PDT | | results section. | + +--------+ + + + | MAGNESIUM | Routin | 05/02/2014 | | Results for this | | | e | 1:11 AM | | procedure are in the | | | | PDT | | results section. | + +--------+ + + + | HEMOGLOBIN A1C | Routin | 05/02/2014 | | Results for this | | | e | 1:11 AM | | procedure are in the | | | | PDT | | results section. | + +--------+ + + + | FOLATE | Routin | 05/02/2014 | | Results for this | | | e | 1:11 AM | | procedure are in the | | | | PDT | | results section. | + +--------+ + + + | BASIC METABOLIC | Routin | 05/02/2014 | | Results for this | | PANEL | e | 1:11 AM | | procedure are in the | | | | PDT | | results section. | + +--------+ + + + | POC GLUCOSE | Routin | 05/01/2014 | | Results for this | | | e | 9:39 PM | | procedure are in the | | | | PDT | | results section. | + +--------+ + + + | POC GLUCOSE | Routin | 05/01/2014 | | Results for this | | | e | 4:05 PM | | procedure are in the | | | | PDT | | results section. | + +--------+ + + + | TROPONIN I | Routin | 05/01/2014 | | Results for this | | | e | 3:03 PM | | procedure are in the | | | | PDT | | results section. | + +--------+ + + + | CK-MB | Routin | 05/01/2014 | | Results for this | | | e | 3:03 PM | | procedure are in the | | | | PDT | | results section. | + +--------+ + + + | CK TOTAL | Routin | 05/01/2014 | | Results for this | | | e | 3:03 PM | | procedure are in the | | | | PDT | | results section. | + +--------+ + + + | ECHO COMPLETE | Routin | 05/01/2014 | | Results for this | | | e | 2:42 PM | | procedure are in the | | | | PDT | | results section. | + +--------+ + + + | XR CHEST 2 VIEWS | Routin | 05/01/2014 | | Results for this | | | e | 11:56 AM | | procedure are in the | | | | PDT | | results section. | + +--------+ + + + | HISTORICAL LAB PANEL | Routin | 05/01/2014 | | Results for this | | RESULT | e | 10:10 AM | | procedure are in the | | | | PDT | | results section. | + +--------+ + + + | ECG 12 LEAD | Routin | 05/01/2014 | | Results for this | | | e | 9:46 AM | | procedure are in the | | | | PDT | | results section. | + +--------+ + + + documented in this encounter Results POC Glucose (05/07/2014 4:05 PM PDT) + + + + + + | Component | Value | Ref Range | Performed | Pathologist | | | | | At | Signature | + + + + + + | Glucose, | 187 (H)Comment: Testing | 65 - 99 mg/dL | EXTERNAL | | | Fingerstick | performed at [facility];[address] | | LAB | | | | [address];[place] | | | | | | [address] | | | | + + + + + + + + | Specimen | + + | | + + + +---------+ + + | Performing | Address | City/State/Zipcode | Phone Number | | Organization | | | | + +---------+ + + | EXTERNAL LAB | | | | + +---------+ + + POC Glucose (05/07/2014 12:17 PM PDT) + + + + + + | Component | Value | Ref Range | Performed | Pathologist | | | | | At | Signature | + + + + + + | Glucose, | 110 (H)Comment: Testing | 65 - 99 mg/dL | EXTERNAL | | | Fingerstick | performed at [facility];[address] | | LAB | | | | [address];[place], [place] | | | | | | [address] | | | | + + + + + + + + | Specimen | + + | | + + + +---------+ + + | Performing | Address | City/State/Zipcode | Phone Number | | Organization | | | | + +---------+ + + | EXTERNAL LAB | | | | + +---------+ + + POC Glucose (05/07/2014 5:30 AM PDT) + + + + + + | Component | Value | Ref Range | Performed | Pathologist | | | | | At | Signature | + + + + + + | Glucose, | 91Comment: Testing | 65 - 99 mg/dL | EXTERNAL | | | Fingerstick | performed at [facility] | | LAB | | | | [address];[place] | | | | | | [address] | | | | + + + + + + + + | Specimen | + + | | + + + +---------+ + + | Performing | Address | City/State/Zipcode | Phone Number | | Organization | | | | + +---------+ + + | EXTERNAL LAB | | | | + +---------+ + + External Lab: CBC (05/07/2014 4:50 AM PDT) + + + + + + | Component | Value | Ref Range | Performed | Pathologist | | | | | At | Signature | + + + + + + | WBC | 8.5Comment: Testing | 3.8 - 11.0 K/uL | EXTERNAL | | | | performed at [facility], [address] | | LAB | | | | [address], | | | | | | [place] [address] | | | | + + + + + + | Non- | 4.34Comment: Testing | 3.70 - 5.10 | EXTERNAL | | | Red Blood | performed at [facility], [address] | M/uL | LAB | | | Cells | [address], | | | | | Counted | [place] [address] | | | | + + + + + + | Hemoglobin | 11.1 (L)Comment: Testing | 11.3 - 15.5 | EXTERNAL | | | | performed at [facility], [address] | g/dL | LAB | | | | [address] [facility] [facility] [address], | | | | | | [place] [address] | | | | + + + + + + | Hematocrit, | 33.4 (L)Comment: Testing | 34.0 - 46.0 % | EXTERNAL | | | POC | performed at [facility], [address] | | LAB | | | | [address], | | | | | | [place] [address] | | | | + + + + + + | MCV | 76.8 (L)Comment: Testing | 80.0 - 100.0 fl | EXTERNAL | | | | performed at [facility], [address] | | LAB | | | | [address], | | | | | | [place] [address] | | | | + + + + + + | MCH | 25.5 (L)Comment: Testing | 27.0 - 34.0 pg | EXTERNAL | | | | performed at [facility], [address] | | LAB | | | | [address], | | | | | | [place] [address] | | | | + + + + + + | MCHC | 33.2Comment: Testing | 32.0 - 35.5 | EXTERNAL | | | | performed at [facility], [address] | g/dL | LAB | | | | [address], | | | | | | [place] [address] | | | | + + + + + + | RDW-CV | 45.9Comment: Testing | 37 - 53 fl | EXTERNAL | | | | performed at [facility], [address] | | LAB | | | | [address], | | | | | | [place] [address] | | | | + + + + + + | Platelet | 245Comment: Testing | 150 - 400 K/uL | EXTERNAL | | | Count | performed at [facility], [address] | | LAB | | | Plasma | [address], | | | | | | [place] [address] | | | | + + + + + + | MPV | 8.8Comment: Testing | fl | EXTERNAL | | | | performed at [facility], [address] | | LAB | | | | [address], | | | | | | [place] [address] | | | | + + + + + + | Differentia | AUTOMATEDComment: | | EXTERNAL | | | l Type | Testing performed at | | LAB | | | | [facility], [address] | | | | | | [place] | | | | | | [address] | | | | + + + + + + | % Segmented | 63.4Comment: Testing | % | EXTERNAL | | | | performed at [facility], [address] | | LAB | | | Neutrophils | [address], | | | | | | [place] [address] | | | | + + + + + + | % | 23.7Comment: Testing | % | EXTERNAL | | | Lymphocytes | performed at [facility], [address] | | LAB | | | | [address], | | | | | | [place] [address] | | | | + + + + + + | % Monocytes | 8.5Comment: Testing | % | EXTERNAL | | | | performed at [facility], [address] | | LAB | | | | [address], | | | | | | [place] [address] | | | | + + + + + + | % | 3.7Comment: Testing | % | EXTERNAL | | | Eosinophils | performed at [facility], [address] | | LAB | | | | [address], | | | | | | [place] [address] | | | | + + + + + + | % Basophils | 0.7Comment: Testing | % | EXTERNAL | | | | performed at [facility], [address] | | LAB | | | | [address], | | | | | | [place] [address] | | | | + + + + + + | Absolute | 5.4Comment: Testing | 1.9 - 7.4 K/uL | EXTERNAL | | | Segmented | performed at [facility], [address] | | LAB | | | Neutrophils | [address], | | | | | | [place] [address] | | | | + + + + + + | Absolute | 2.0Comment: Testing | 1.0 - 3.9 K/uL | EXTERNAL | | | Lymphocytes | performed at [facility], [address] | | LAB | | | | [address], | | | | | | [place] [address] | | | | + + + + + + | Absolute | 0.7Comment: Testing | 0 - 0.8 K/uL | EXTERNAL | | | Monocytes | performed at [facility], [address] | | LAB | | | | [address], | | | | | | [place] [address] | | | | + + + + + + | Absolute | 0.3Comment: Testing | 0 - 0.5 K/uL | EXTERNAL | | | Eosinophils | performed at [facility], [address] | | LAB | | | | [address], | | | | | | [place] [address] | | | | + + + + + + | Absolute | 0.1Comment: Testing | 0 - 0.1 K/uL | EXTERNAL | | | Basophils | performed at [facility], [address] | | LAB | | | | [address], | | | | | | [place] [address] | | | | + + + + + + | RBC | Comment: 1+ | | EXTERNAL | | | Morphology | Anisocytosis1+ | | LAB | | | | Hypochromia1+ | | | | | | MicrocytosisTesting | | | | | | performed at [facility], [address] | | | | | | [address], | | | | | | [place] [address] | | | | + + + + + + + + | Specimen | + + | Blood specimen | | (specimen) | + + + +---------+ + + | Performing | Address | City/State/Zipcode | Phone Number | | Organization | | | | + +---------+ + + | EXTERNAL LAB | | | | + +---------+ + + Phosphorus (05/07/2014 4:50 AM PDT) + + + + + + | Component | Value | Ref Range | Performed | Pathologist | | | | | At | Signature | + + + + + + | PHOSPHORUS | 3.5Comment: Testing | 2.3 - 4.8 mg/dL | EXTERNAL | | | | performed at [facility], [address] | | LAB | | | | [address], | | | | | | [place] [address] | | | | + + + + + + + + | Specimen | + + | Blood specimen | | (specimen) | + + + +---------+ + + | Performing | Address | City/State/Zipcode | Phone Number | | Organization | | | | + +---------+ + + | EXTERNAL LAB | | | | + +---------+ + + Magnesium (05/07/2014 4:50 AM PDT) + + + + + + | Component | Value | Ref Range | Performed | Pathologist | | | | | At | Signature | + + + + + + | Magnesium | 2.3Comment: Testing | 1.7 - 2.4 mg/dL | EXTERNAL | | | | performed at [facility], [address] | | LAB | | | | [address], | | | | | | [place] [address] | | | | + + + + + + + + | Specimen | + + | Blood specimen | | (specimen) | + + + +---------+ + + | Performing | Address | City/State/Zipcode | Phone Number | | Organization | | | | + +---------+ + + | EXTERNAL LAB | | | | + +---------+ + + Comprehensive Metabolic Panel (05/07/2014 4:50 AM PDT) + + + + + + | Component | Value | Ref Range | Performed | Pathologist | | | | | At | Signature | + + + + + + | Na | 137Comment: Testing | 135 - 143 | EXTERNAL | | | | performed at [facility], [address] | mmol/L | LAB | | | | [address], | | | | | | [place] [address] | | | | + + + + + + | K | 4.2Comment: Testing | 3.5 - 4.9 | EXTERNAL | | | | performed at [facility], [address] | mmol/L | LAB | | | | [address], | | | | | | [place] [address] | | | | + + + + + + | Cl | 105Comment: Testing | 99 - 109 mmol/L | EXTERNAL | | | | performed at [facility], [address] | | LAB | | | | [address], | | | | | | [place] [address] | | | | + + + + + + | CO2 | 26Comment: Testing | 23 - 32 mmol/L | EXTERNAL | | | | performed at [facility], [address] | | LAB | | | | [address], | | | | | | [place] [address] | | | | + + + + + + | Anion Gap | 10Comment: Testing | 5 - 20 mmol/L | EXTERNAL | | | | performed at [facility], [address] | | LAB | | | | [address], | | | | | | [place] [address] | | | | + + + + + + | Glucose, | 98Comment: Testing | 65 - 99 mg/dL | EXTERNAL | | | Fasting | performed at [facility], [address] | | LAB | | | | [address], | | | | | | [place] [address] | | | | + + + + + + | BUN | 44 (H)Comment: Testing | 8 - 25 mg/dL | EXTERNAL | | | | performed at [facility], [address] | | LAB | | | | [address], | | | | | | [place] [address] | | | | + + + + + + | Creatinine | 1.68 (H)Comment: Testing | 0.50 - 1.00 | EXTERNAL | | | | performed at [facility], [address] | mg/dL | LAB | | | | [address], | | | | | | [place] [address] | | | | + + + + + + | BUN/Creatin | 26Comment: Testing | | EXTERNAL | | | ine Ratio | performed at [facility], [address] | | LAB | | | | [address], | | | | | | [place] [address] | | | | + + + + + + | Calcium | 8.5Comment: Testing | 8.5 - 10.2 | EXTERNAL | | | | performed at [facility], [address] | mg/dL | LAB | | | | [address], | | | | | | [place] [address] | | | | + + + + + + | Protein, | 6.5Comment: Testing | 6.3 - 8.2 g/dL | EXTERNAL | | | Total | performed at [facility], [address] | | LAB | | | | [address], | | | | | | [place] [address] | | | | + + + + + + | Albumin | 3.5Comment: Testing | 3.3 - 4.8 g/dL | EXTERNAL | | | | performed at [facility], [address] | | LAB | | | | [address], | | | | | | [place] [address] | | | | + + + + + + | Globulin | 3.0Comment: Testing | 1.3 - 4.9 g/dL | EXTERNAL | | | | performed at [facility], [address] | | LAB | | | | [address], | | | | | | [place] [address] | | | | + + + + + + | A/G Ratio | 1.2Comment: Testing | 1.0 - 2.4 | EXTERNAL | | | | performed at [facility], [address] | | LAB | | | | [address], | | | | | | [place] [address] | | | | + + + + + + | Bilirubin | 0.4Comment: Testing | 0.1 - 1.5 mg/dL | EXTERNAL | | | Total | performed at [facility], [address] | | LAB | | | | [address], | | | | | | [place] [address] | | | | + + + + + + | ALP, | 82Comment: Testing | 35 - 115 U/L | EXTERNAL | | | External | performed at [facility], [address] | | LAB | | | | [address], | | | | | | [place] [address] | | | | + + + + + + | AST | 10Comment: Testing | 10 - 45 U/L | EXTERNAL | | | | performed at [facility], [address] | | LAB | | | | [address], | | | | | | [place] [address] | | | | + + + + + + | ALT | 7 (L)Comment: Testing | 10 - 65 U/L | EXTERNAL | | | | performed at [facility], [address] | | LAB | | | | [address], | | | | | | [place] [address] | | | | + + + + + + | Estimated | 31 (L)Comment: GFR <60: | mL/min/1.73m2 | EXTERNAL [...] | | | | | | [address], | | | | | | [place] [address] | | | | + + + + + + + + | Specimen | + + | Blood specimen | | (specimen) | + + + +---------+ + + | Performing | Address | City/State/Zipcode | Phone Number | | Organization | | | | + +---------+ + + | EXTERNAL LAB | | | | + +---------+ + + Tissue Request For Pathology (05/07/2014 12:00 AM PDT) + + | Specimen | + + | | + + + + + | Narrative | Performed At | + + + | SPECIMEN(S): A DUODENAL BIOPSY SPECIMEN(S): B GASTRIC- BIOPSY/ | EXTERNAL LAB | | POLYP SPECIMEN SOURCE: A. DUODENAL BIOPSY B. GASTRIC- BIOPSY/ | | | POLYP CLINICAL HISTORY: 05/07/2014 at 1344 H. No clinical history | | | given. MICROSCOPIC DESCRIPTION: Histologic sections of all | | | submitted blocks are examined by light microscopy. These findings, | | | together with the gross examination, support the pathologic | | | diagnosis. FINAL PATHOLOGIC DIAGNOSIS: A. Duodenum, biopsies: - | | | Unremarkable duodenal mucosa, negative for active inflammation or | | | villous blunting. B. 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 See comment. - Negative for Helicobacter | | | pylori organisms (Warthin Starry stain). COMMENT: The presence of | | | intestinal metaplasia in the gastric biopsy (B) is confirmed by | | | Alcian-Blue/PAS stain. AMB:kmk:[id number] GROSS DESCRIPTION: The | | | specimen is received in formalin in two parts: A. Received in | | | formalin designated "Duodenum" and consists of four yellow-estrada soft | | | tissue fragments that range in size from 0.3 cm up to 0.4 cm in | | | greatest dimension. The specimen is entirely submitted in cassette | | | A1. B. Received in formalin designated "Gastric" and consists of | | | two pink-estrada soft tissue fragments that measure 0.3 and 0.4 cm in | | | greatest dimension. The specimen is entirely submitted in cassette | | | B1. fam:nory PERFORMING LABORATORY: Professional interpretation and | | | technical preparation was performed by [email or web address] | | | [address] [address] | | | (Compliance Nurse: Lester Soni M.D.; [facility]#: [id number]). | | | Diagnostician: Cristal Garcias MD Pathologist Electronically Signed | | | 05/08/2014 | | + + + + +---------+ + + | Performing | Address | City/State/Zipcode | Phone Number | | Organization | | | | + +---------+ + + | EXTERNAL LAB | | | | + +---------+ + + POC Glucose (05/06/2014 9:28 PM PDT) + + + + + + | Component | Value | Ref Range | Performed | Pathologist | | | | | At | Signature | + + + + + + | Glucose, | 111 (H)Comment: Testing | 65 - 99 mg/dL | EXTERNAL | | | Fingerstick | performed at [facility];[address] | | LAB | | | | [address];[place] | | | | | | [address] | | | | + + + + + + + + | Specimen | + + | | + + + +---------+ + + | Performing | Address | City/State/Zipcode | Phone Number | | Organization | | | | + +---------+ + + | EXTERNAL LAB | | | | + +---------+ + + POC Glucose (05/06/2014 4:40 PM PDT) + + + + + + | Component | Value | Ref Range | Performed | Pathologist | | | | | At | Signature | + + + + + + | Glucose, | 180 (H)Comment: Testing | 65 - 99 mg/dL | EXTERNAL | | | Fingerstick | performed at [facility];[address] | | LAB | | | | [address];[place], [place] | | | | | | [address] | | | | + + + + + + + + | Specimen | + + | | + + + +---------+ + + | Performing | Address | City/State/Zipcode | Phone Number | | Organization | | | | + +---------+ + + | EXTERNAL LAB | | | | + +---------+ + + POC Glucose (05/06/2014 11:33 AM PDT) + + + + + + | Component | Value | Ref Range | Performed | Pathologist | | | | | At | Signature | + + + + + + | Glucose, | 154 (H)Comment: Testing | 65 - 99 mg/dL | EXTERNAL | | | Fingerstick | performed at [facility] | | LAB | | | | [address];[place] | | | | | | [address] | | | | + + + + + + + + | Specimen | + + | | + + + +---------+ + + | Performing | Address | City/State/Zipcode | Phone Number | | Organization | | | | + +---------+ + + | EXTERNAL LAB | | | | + +---------+ + + POC Glucose (05/06/2014 5:08 AM PDT) + + + + + + | Component | Value | Ref Range | Performed | Pathologist | | | | | At | Signature | + + + + + + | Glucose, | 98Comment: Testing | 65 - 99 mg/dL | EXTERNAL | | | Fingerstick | performed at [facility];[address] | | LAB | | | | [address];[place], [place] | | | | | | [address] | | | | + + + + + + + + | Specimen | + + | | + + + +---------+ + + | Performing | Address | City/State/Zipcode | Phone Number | | Organization | | | | + +---------+ + + | EXTERNAL LAB | | | | + +---------+ + + External Lab: [facility]OLA (05/06/2014 4:30 AM PDT) + + + + + + | Component | Value | Ref Range | Performed | Pathologist | | | | | At | Signature | + + + + + + | WBC | 9.9Comment: Testing | 3.8 - 11.0 K/uL | EXTERNAL | | | | performed at [facility], [address] | | LAB | | | | [address], | | | | | | [place] [address] | | | | + + + + + + | Non- | 4.30Comment: Testing | 3.70 - 5.10 | EXTERNAL | | | Red Blood | performed at [facility], [address] | M/uL | LAB | | | Cells | [address], | | | | | Counted | [place] [address] | | | | + + + + + + | Hemoglobin | 10.9 (L)Comment: Testing | 11.3 - 15.5 | EXTERNAL | | | | performed at [facility], [address] | g/dL | LAB | | | | [address], | | | | | | [place] [address] | | | | + + + + + + | Hematocrit, | 33.2 (L)Comment: Testing | 34.0 - 46.0 % | EXTERNAL | | | POC | performed at [facility], [address] | | LAB | | | | [address], | | | | | | [place] [address] | | | | + + + + + + | MCV | 77.1 (L)Comment: Testing | 80.0 - 100.0 fl | EXTERNAL | | | | performed at [facility], [address] | | LAB | | | | [address], | | | | | | [place] [address] | | | | + + + + + + | MCH | 25.4 (L)Comment: Testing | 27.0 - 34.0 pg | EXTERNAL | | | | performed at [facility], [address] | | LAB | | | | [address], | | | | | | [place] [address] | | | | + + + + + + | MCHC | 33.0Comment: Testing | 32.0 - 35.5 | EXTERNAL | | | | performed at [facility], [address] | g/dL | LAB | | | | [address], | | | | | | [place] [address] | | | | + + + + + + | RDW-CV | 45.5Comment: Testing | 37 - 53 fl | EXTERNAL | | | | performed at [facility], [address] | | LAB | | | | [address], | | | | | | [place] [address] | | | | + + + + + + | Platelet | 241Comment: Testing | 150 - 400 K/uL | EXTERNAL | | | Count | performed at [facility], [address] | | LAB | | | Plasma | [address], | | | | | | [place] [address] | | | | + + + + + + | MPV | 9.1Comment: Testing | fl | EXTERNAL | | | | performed at [facility], [address] | | LAB | | | | [address], | | | | | | [place] [address] | | | | + + + + + + | Differentia | AUTOMATEDComment: | | EXTERNAL | | | l Type | Testing performed at | | LAB | | | | [facility], [address] | | | | | | [place] | | | | | | [address] | | | | + + + + + + | % Segmented | 64.8Comment: Testing | % | EXTERNAL | | | | performed at [facility], [address] | | LAB | | | Neutrophils | [address], | | | | | | [place] [address] | | | | + + + + + + | % | 22.7Comment: Testing | % | EXTERNAL | | | Lymphocytes | performed at [facility], [address] | | LAB | | | | [address], | | | | | | [place] [address] | | | | + + + + + + | % Monocytes | 8.3Comment: Testing | % | EXTERNAL | | | | performed at [facility], [address] | | LAB | | | | [address], | | | | | | [place] [address] | | | | + + + + + + | % | 3.4Comment: Testing | % | EXTERNAL | | | Eosinophils | performed at [facility], [address] | | LAB | | | | [address], | | | | | | [place] [address] | | | | + + + + + + | % Basophils | 0.8Comment: Testing | % | EXTERNAL | | | | performed at [facility], [address] | | LAB | | | | [address], | | | | | | [place] [address] | | | | + + + + + + | Absolute | 6.4Comment: Testing | 1.9 - 7.4 K/uL | EXTERNAL | | | Segmented | performed at [facility], [address] | | LAB | | | Neutrophils | [address], | | | | | | [place] [address] | | | | + + + + + + | Absolute | 2.2Comment: Testing | 1.0 - 3.9 K/uL | EXTERNAL | | | Lymphocytes | performed at [facility], [address] | | LAB | | | | [address], | | | | | | [place] [address] | | | | + + + + + + | Absolute | 0.8Comment: Testing | 0 - 0.8 K/uL | EXTERNAL | | | Monocytes | performed at [facility], [address] | | LAB | | | | [address], | | | | | | [place] [address] | | | | + + + + + + | Absolute | 0.3Comment: Testing | 0 - 0.5 K/uL | EXTERNAL | | | Eosinophils | performed at [facility], [address] | | LAB | | | | [address], | | | | | | [place] [address] | | | | + + + + + + | Absolute | 0.1Comment: Testing | 0 - 0.1 K/uL | EXTERNAL | | | Basophils | performed at [facility], [address] | | LAB | | | | [address], | | | | | | [place] [address] | | | | + + + + + + | RBC | Comment: 1+ | | EXTERNAL | | | Morphology | Anisocytosis1+ | | LAB | | | | Hypochromia1+ | | | | | | MicrocytosisTesting | | | | | | performed at [facility], [address] | | | | | | [address], | | | | | | [place] [address] | | | | + + + + + + + + | Specimen | + + | Blood specimen | | (specimen) | + + + +---------+ + + | Performing | Address | City/State/Zipcode | Phone Number | | Organization | | | | + +---------+ + + | EXTERNAL LAB | | | | + +---------+ + + Phosphorus (05/06/2014 4:30 AM PDT) + + + + + + | Component | Value | Ref Range | Performed | Pathologist | | | | | At | Signature | + + + + + + | PHOSPHORUS | 4.1Comment: Testing | 2.3 - 4.8 mg/dL | EXTERNAL | | | | performed at [facility], [address] | | LAB | | | | [address], | | | | | | [place] [address] | | | | + + + + + + + + | Specimen | + + | Blood specimen | | (specimen) | + + + +---------+ + + | Performing | Address | City/State/Zipcode | Phone Number | | Organization | | | | + +---------+ + + | EXTERNAL LAB | | | | + +---------+ + + Magnesium (05/06/2014 4:30 AM PDT) + + + + + + | Component | Value | Ref Range | Performed | Pathologist | | | | | At | Signature | + + + + + + | Magnesium | 2.3Comment: Testing | 1.7 - 2.4 mg/dL | EXTERNAL | | | | performed at [facility], [address] | | LAB | | | | [address], | | | | | | [place] [address] | | | | + + + + + + + + | Specimen | + + | Blood specimen | | (specimen) | + + + +---------+ + + | Performing | Address | City/State/Zipcode | Phone Number | | Organization | | | | + +---------+ + + | EXTERNAL LAB | | | | + +---------+ + + Comprehensive Metabolic Panel (05/06/2014 4:30 AM PDT) + + + + + + | Component | Value | Ref Range | Performed | Pathologist | | | | | At | Signature | + + + + + + | Na | 135Comment: Testing | 135 - 143 | EXTERNAL | | | | performed at [facility], [address] | mmol/L | LAB | | | | [address], | | | | | | [place] [address] | | | | + + + + + + | K | 4.0Comment: Testing | 3.5 - 4.9 | EXTERNAL | | | | performed at [facility], [address] | mmol/L | LAB | | | | [address], | | | | | | [place] [address] | | | | + + + + + + | Cl | 101Comment: Testing | 99 - 109 mmol/L | EXTERNAL | | | | performed at [facility], [address] | | LAB | | | | [address], | | | | | | [place] [address] | | | | + + + + + + | CO2 | 27Comment: Testing | 23 - 32 mmol/L | EXTERNAL | | | | performed at [facility], [address] | | LAB | | | | [address], | | | | | | [place] [address] | | | | + + + + + + | Anion Gap | 11Comment: Testing | 5 - 20 mmol/L | EXTERNAL | | | | performed at [facility], [address] | | LAB | | | | [address], | | | | | | [place] [address] | | | | + + + + + + | Glucose, | 93Comment: Testing | 65 - 99 mg/dL | EXTERNAL | | | Fasting | performed at [facility], [address] | | LAB | | | | [address], | | | | | | [place] [id number] | | | | + + + + + + | BUN | 53 (H)Comment: Testing | 8 - 25 mg/dL | EXTERNAL | | | | performed at [facility], [address] | | LAB | | | | [address], | | | | | | [place] [address] | | | | + + + + + + | Creatinine | 1.85 (H)Comment: Testing | 0.50 - 1.00 | EXTERNAL | | | | performed at [facility], [address] | mg/dL | LAB | | | | [address], | | | | | | [place] [address] | | | | + + + + + + | BUN/Creatin | 29Comment: Testing | | EXTERNAL | | | ine Ratio | performed at [facility], [address] | | LAB | | | | [address], | | | | | | [place] [address] | | | | + + + + + + | Calcium | 8.3 (L)Comment: Testing | 8.5 - 10.2 | EXTERNAL | | | | performed at [facility], [address] | mg/dL | LAB | | | | [address], | | | | | | [place] [address] | | | | + + + + + + | Protein, | 6.3Comment: Testing | 6.3 - 8.2 g/dL | EXTERNAL | | | Total | performed at [facility], [address] | | LAB | | | | [address], | | | | | | [place] [address] | | | | + + + + + + | Albumin | 3.3Comment: Testing | 3.3 - 4.8 g/dL | EXTERNAL | | | | performed at [facility], [address] | | LAB | | | | [address], | | | | | | [place] [address] | | | | + + + + + + | Globulin | 3.0Comment: Testing | 1.3 - 4.9 g/dL | EXTERNAL | | | | performed at [facility], [address] | | LAB | | | | [address], | | | | | | [place] [address] | | | | + + + + + + | A/G Ratio | 1.1Comment: Testing | 1.0 - 2.4 | EXTERNAL | | | | performed at [facility], [address] | | LAB | | | | [address], | | | | | | [place] [address] | | | | + + + + + + | Bilirubin | 0.3Comment: Testing | 0.1 - 1.5 mg/dL | EXTERNAL | | | Total | performed at [facility], [address] | | LAB | | | | [address], | | | | | | [place] [address] | | | | + + + + + + | ALP, | 87Comment: Testing | 35 - 115 U/L | EXTERNAL | | | External | performed at [facility], [address] | | LAB | | | | [address], | | | | | | [place] [address] | | | | + + + + + + | AST | 9 (L)Comment: Testing | 10 - 45 U/L | EXTERNAL | | | | performed at [facility], [address] | | LAB | | | | [address], | | | | | | [place] [address] | | | | + + + + + + | ALT | 7 (L)Comment: Testing | 10 - 65 U/L | EXTERNAL | | | | performed at [facility], [address] | | LAB | | | | [address], | | | | | | [place] [address] | | | | + + + + + + | Estimated | 28 (L)Comment: GFR <60: | mL/min/1.73m2 | EXTERNAL [...] | | | | | | at [facility], [address] | | | | | | [address], | | | | | | [place] [address] | | | | + + + + + + + + | Specimen | + + | Blood specimen | | (specimen) | + + + +---------+ + + | Performing | Address | City/State/Zipcode | Phone Number | | Organization | | | | + +---------+ + + | EXTERNAL LAB | | | | + +---------+ + + POC Glucose (05/05/2014 9:21 PM PDT) + + + + + + | Component | Value | Ref Range | Performed | Pathologist | | | | | At | Signature | + + + + + + | Glucose, | 147 (H)Comment: Testing | 65 - 99 mg/dL | EXTERNAL | | | Fingerstick | performed at [facility];[address] | | LAB | | | | [address];[place], [place] | | | | | | [address] | | | | + + + + + + + + | Specimen | + + | | + + + +---------+ + + | Performing | Address | City/State/Zipcode | Phone Number | | Organization | | | | + +---------+ + + | EXTERNAL LAB | | | | + +---------+ + + POC Glucose (05/05/2014 3:39 PM PDT) + + + + + + | Component | Value | Ref Range | Performed | Pathologist | | | | | At | Signature | + + + + + + | Glucose, | 172 (H)Comment: Testing | 65 - 99 mg/dL | EXTERNAL | | | Fingerstick | performed at [facility];[address] | | LAB | | | | [address];[place] | | | | | | [address] | | | | + + + + + + + + | Specimen | + + | | + + + +---------+ + + | Performing | Address | City/State/Zipcode | Phone Number | | Organization | | | | + +---------+ + + | EXTERNAL LAB | | | | + +---------+ + + External Lab: Occult Blood, Screening (05/05/2014 1:02 PM PDT) + + | Specimen | + + | Stool specimen | | (specimen) | + + + + + | Narrative | Performed At | + + + | Fecal Occult Blood POSITIVE Abnormal | EXTERNAL LAB | | Testing performed at [facility];[address] [facility];[place] [address] | | + + + + +---------+ + + | Performing | Address | City/State/Zipcode | Phone Number | | Organization | | | | + +---------+ + + | EXTERNAL LAB | | | | + +---------+ + + POC Glucose (05/05/2014 11:47 AM PDT) + + + + + + | Component | Value | Ref Range | Performed | Pathologist | | | | | At | Signature | + + + + + + | Glucose, | 144 (H)Comment: Testing | 65 - 99 mg/dL | EXTERNAL | | | Fingerstick | performed at [facility];[address] | | LAB | | | | [address];[place] | | | | | | [address] | | | | + + + + + + + + | Specimen | + + | | + + + +---------+ + + | Performing | Address | City/State/Zipcode | Phone Number | | Organization | | | | + +---------+ + + | EXTERNAL LAB | | | | + +---------+ + + NM Myocardial Perfusion Mult SPECT (05/05/2014 10:49 AM PDT) + + | Specimen | + + | | + + + + + | Impressions | Performed At | + + + | 1. Large infarct involving anterior, septal, and distal inferior | | | wall with mild pretty-infarct ischemia. 2. Left ventricular ejection | | | fraction is calculated at 21%. 3. Dilated left ventricle. | | | | | + + + + + + | Narrative | Performed At | + + + | [facility] MYOCARDIAL PERFUSION SPECT - STRESS AND REST | | | HISTORY: 83 years. Female. Shortness of breath and elevated | | | troponins. TECHNIQUE: A same day protocol was used. For the | | | resting portion of the study the patient was injected intravenously | | | with 10 mCi technetium 99m Myoview. Gated SPECT imaging was | | | performed in the supine position. The patient was then | | | pharmacologically stressed using a regadenoson protocol. The patient | | | received 0.4 mg of regadenoson intravenously. The patient was | | | intravenously administered 40 mCi technetium 99m Myoview. Gated SPECT | | | images were acquired in the prone and supine positions. | | | COMPARISON: None. FINDINGS: Large area of decreased perfusion | | | involving the mid and distal anterior wall, mid and distal septal | | | wall, and distal aspect of the inferior wall on both supine stress and | | | rest images that is mildly greater on supine stress and rest images. | | | Findings are felt to represent infarct with mild pretty-infarct | | | ischemia. Akinesia within the mid and distal anterior and septal gaytan | | | with mild paradoxical wall motion. STRESS: End-diastolic volume: | | | 138 mL End-systolic volume: 109 mL Ejection fraction: 21% REST: | | | End-diastolic volume: 142 mL End-systolic volume: 122 mL Ejection | | | fraction: 14% | | + + + + + | Procedure Note | + + | Mateus Young Conversion - 06/16/2019 4:04 PM [facility] MYOCARDIAL PERFUSION | | SPECT - STRESS AND REST HISTORY:83 years. Female. Shortness of breath and elevated | | troponins. TECHNIQUE:A same day protocol was used. For the resting portion of the study | | the patient was injected intravenously with 10 mCi technetium 99m Myoview. Gated SPECT | | imaging was performed in the supine position. The patient was then pharmacologically | | stressed using a regadenoson protocol. The patient received 0.4 mg of regadenoson | | intravenously. The patient was intravenously administered 40 mCi technetium 99m | | Myoview. Gated SPECT images were acquired in the prone and supine positions. | | COMPARISON:None. FINDINGS:Large area of decreased perfusion involving the mid and distal | | anterior wall, mid and distal septal wall, and distal aspect of the inferior wall on | | both supine stress and rest images that is mildly greater on supine stress and rest | | images. Findings are felt to represent infarct with mild pretty-infarct ischemia. Akinesia | | within the mid and distal anterior and septal gaytan with mild paradoxical wall motion. | | STRESS:End-diastolic volume: 138 mLEnd-systolic volume: 109 mLEjection fraction: | | 21%REST:End-diastolic volume: 142 mLEnd-systolic volume: 122 mLEjection fraction: 14% | | IMPRESSION: 1. Large infarct involving anterior, septal, and distal inferior wall with | | mild pretty-infarct ischemia.2. Left ventricular ejection fraction is calculated at | | 21%.3. Dilated left ventricle. | | 11:05 AM | |felt to represent infarct with mild pretty-infarct ischemia. Akinesia within the mid and dist al anterior and septal gaytan with mild paradoxical wall motion. | | | |STRESS: | |End-diastolic volume: 138 mL | |End-systolic volume: 109 mL | |Ejection fraction: 21% | |REST: | |End-diastolic volume: 142 mL | |End-systolic volume: 122 mL | |Ejection fraction: 14% | | | | | |IMPRESSION: | |1. Large infarct involving anterior, septal, and distal inferior wall with mild pretty-infar ct ischemia. | |2. Left ventricular ejection fraction is calculated at 21%. | |3. Dilated left ventricle. | | | | | + + POC Glucose (05/05/2014 5:59 AM PDT) + + + + + + | Component | Value | Ref Range | Performed | Pathologist | | | | | At | Signature | + + + + + + | Glucose, | 85Comment: Testing | 65 - 99 mg/dL | EXTERNAL | | | Fingerstick | performed at [facility];[address] | | LAB | | | | [address];[place] | | | | | | [address] | | | | + + + + + + + + | Specimen | + + | | + + + +---------+ + + | Performing | Address | City/State/Zipcode | Phone Number | | Organization | | | | + +---------+ + + | EXTERNAL LAB | | | | + +---------+ + + External Lab: CBC (05/05/2014 4:15 AM PDT) + + + + + + | Component | Value | Ref Range | Performed | Pathologist | | | | | At | Signature | + + + + + + | WBC | 9.4Comment: Testing | 3.8 - 11.0 K/uL | EXTERNAL | | | | performed at [facility], [address] | | LAB | | | | [address], | | | | | | [place] [address] | | | | + + + + + + | Non- | 4.39Comment: Testing | 3.70 - 5.10 | EXTERNAL | | | Red Blood | performed at [facility], [address] | M/uL | LAB | | | Cells | [address], | | | | | Counted | [place] [address] | | | | + + + + + + | Hemoglobin | 11.1 (L)Comment: Testing | 11.3 - 15.5 | EXTERNAL | | | | performed at [facility], [address] | g/dL | LAB | | | | [address], | | | | | | [place] [address] | | | | + + + + + + | Hematocrit, | 33.3 (L)Comment: Testing | 34.0 - 46.0 % | EXTERNAL | | | POC | performed at [facility], [address] | | LAB | | | | [address], | | | | | | [place] [address] | | | | + + + + + + | MCV | 75.9 (L)Comment: Testing | 80.0 - 100.0 fl | EXTERNAL | | | | performed at [facility], [address] | | LAB | | | | [address], | | | | | | [place] [address] | | | | + + + + + + | MCH | 25.3 (L)Comment: Testing | 27.0 - 34.0 pg | EXTERNAL | | | | performed at [facility], [address] | | LAB | | | | [address], | | | | | | [place] [address] | | | | + + + + + + | MCHC | 33.3Comment: Testing | 32.0 - 35.5 | EXTERNAL | | | | performed at [facility], [address] | g/dL | LAB | | | | [address], | | | | | | [place] [address] | | | | + + + + + + | RDW-CV | 44.6Comment: Testing | 37 - 53 fl | EXTERNAL | | | | performed at [facility], [address] | | LAB | | | | [address], | | | | | | [place] [address] | | | | + + + + + + | Platelet | 246Comment: Testing | 150 - 400 K/uL | EXTERNAL | | | Count | performed at [facility], [address] | | LAB | | | Plasma | [address], | | | | | | [place] [address] | | | | + + + + + + | MPV | 9.2Comment: Testing | fl | EXTERNAL | | | | performed at [facility], [address] | | LAB | | | | [address], | | | | | | [place] [address] | | | | + + + + + + | Differentia | AUTOMATEDComment: | | EXTERNAL | | | l Type | Testing performed at | | LAB | | | | [facility], [address] | | | | | | [place] | | | | | | [address] | | | | + + + + + + | % Segmented | 70.6Comment: Testing | % | EXTERNAL | | | | performed at [facility], [address] | | LAB | | | Neutrophils | [address], | | | | | | [place] [address] | | | | + + + + + + | % | 16.8Comment: Testing | % | EXTERNAL | | | Lymphocytes | performed at [facility], [address] | | LAB | | | | [address], | | | | | | [place] [address] | | | | + + + + + + | % Monocytes | 8.7Comment: Testing | % | EXTERNAL | | | | performed at [facility], [address] | | LAB | | | | [address], | | | | | | [place] [address] | | | | + + + + + + | % | 3.1Comment: Testing | % | EXTERNAL | | | Eosinophils | performed at [facility], [address] | | LAB | | | | [address], | | | | | | [place] [address] | | | | + + + + + + | % Basophils | 0.8Comment: Testing | % | EXTERNAL | | | | performed at [facility], [address] | | LAB | | | | [address], | | | | | | [place] [address] | | | | + + + + + + | Absolute | 6.7Comment: Testing | 1.9 - 7.4 K/uL | EXTERNAL | | | Segmented | performed at [facility], [address] | | LAB | | | Neutrophils | [address], | | | | | | [place] [address] | | | | + + + + + + | Absolute | 1.6Comment: Testing | 1.0 - 3.9 K/uL | EXTERNAL | | | Lymphocytes | performed at [facility], [address] | | LAB | | | | [address], | | | | | | [place] [address] | | | | + + + + + + | Absolute | 0.8Comment: Testing | 0 - 0.8 K/uL | EXTERNAL | | | Monocytes | performed at [facility], [address] | | LAB | | | | [address], | | | | | | [place] [address] | | | | + + + + + + | Absolute | 0.3Comment: Testing | 0 - 0.5 K/uL | EXTERNAL | | | Eosinophils | performed at [facility], [address] | | LAB | | | | [address], | | | | | | [place] [address] | | | | + + + + + + | Absolute | 0.1Comment: Testing | 0 - 0.1 K/uL | EXTERNAL | | | Basophils | performed at [facility], [address] | | LAB | | | | [address], | | | | | | [place] [address] | | | | + + + + + + | RBC | Comment: 1+ | | EXTERNAL | | | Morphology | Anisocytosis1+ | | LAB | | | | Hypochromia1+ | | | | | | MicrocytosisTesting | | | | | | performed at [facility], [address] | | | | | | [address], | | | | | | [place] [address] | | | | + + + + + + + + | Specimen | + + | Blood specimen | | (specimen) | + + + +---------+ + + | Performing | Address | City/State/Zipcode | Phone Number | | Organization | | | | + +---------+ + + | EXTERNAL LAB | | | | + +---------+ + + Phosphorus (05/05/2014 4:15 AM PDT) + + + + + + | Component | Value | Ref Range | Performed | Pathologist | | | | | At | Signature | + + + + + + | PHOSPHORUS | 4.4Comment: Testing | 2.3 - 4.8 mg/dL | EXTERNAL | | | | performed at [facility], [address] | | LAB | | | | [address], | | | | | | [place] [address] | | | | + + + + + + + + | Specimen | + + | Blood specimen | | (specimen) | + + + +---------+ + + | Performing | Address | City/State/Zipcode | Phone Number | | Organization | | | | + +---------+ + + | EXTERNAL LAB | | | | + +---------+ + + Magnesium (05/05/2014 4:15 AM PDT) + + + + + + | Component | Value | Ref Range | Performed | Pathologist | | | | | At | Signature | + + + + + + | Magnesium | 2.2Comment: Testing | 1.7 - 2.4 mg/dL | EXTERNAL | | | | performed at [facility], [address] | | LAB | | | | [address], | | | | | | [place] [address] | | | | + + + + + + + + | Specimen | + + | Blood specimen | | (specimen) | + + + +---------+ + + | Performing | Address | City/State/Zipcode | Phone Number | | Organization | | | | + +---------+ + + | EXTERNAL LAB | | | | + +---------+ + + Comprehensive Metabolic Panel (05/05/2014 4:15 AM PDT) + + + + + + | Component | Value | Ref Range | Performed | Pathologist | | | | | At | Signature | + + + + + + | Na | 134 (L)Comment: Testing | 135 - 143 | EXTERNAL | | | | performed at [facility], [address] | mmol/L | LAB | | | | [address], | | | | | | [place] [address] | | | | + + + + + + | K | 3.4 (L)Comment: Testing | 3.5 - 4.9 | EXTERNAL | | | | performed at [facility], [address] | mmol/L | LAB | | | | [address], | | | | | | [place] [address] | | | | + + + + + + | Cl | 97 (L)Comment: Testing | 99 - 109 mmol/L | EXTERNAL | | | | performed at [facility], [address] | | LAB | | | | [address], | | | | | | [place] [address] | | | | + + + + + + | CO2 | 28Comment: Testing | 23 - 32 mmol/L | EXTERNAL | | | | performed at [facility], [address] | | LAB | | | | [address], | | | | | | [place] [address] | | | | + + + + + + | Anion Gap | 12Comment: Testing | 5 - 20 mmol/L | EXTERNAL | | | | performed at [facility], [address] | | LAB | | | | [address], | | | | | | [place] [address] | | | | + + + + + + | Glucose, | 120 (H)Comment: Testing | 65 - 99 mg/dL | EXTERNAL | | | Fasting | performed at [facility], [address] | | LAB | | | | [address], | | | | | | [place] [address] | | | | + + + + + + | BUN | 56 (H)Comment: Testing | 8 - 25 mg/dL | EXTERNAL | | | | performed at [facility], [address] | | LAB | | | | [address], | | | | | | [place] [address] | | | | + + + + + + | Creatinine | 2.27 (H)Comment: Testing | 0.50 - 1.00 | EXTERNAL | | | | performed at [facility], [address] | mg/dL | LAB | | | | [address], | | | | | | [place] [address] | | | | + + + + + + | BUN/Creatin | 25Comment: Testing | | EXTERNAL | | | ine Ratio | performed at [facility], [address] | | LAB | | | | [address], | | | | | | [place] [address] | | | | + + + + + + | Calcium | 8.2 (L)Comment: Testing | 8.5 - 10.2 | EXTERNAL | | | | performed at [facility], [address] | mg/dL | LAB | | | | [address], | | | | | | [place] [address] | | | | + + + + + + | Protein, | 6.6Comment: Testing | 6.3 - 8.2 g/dL | EXTERNAL | | | Total | performed at [facility], [address] | | LAB | | | | [address], | | | | | | [place] [address] | | | | + + + + + + | Albumin | 3.4Comment: Testing | 3.3 - 4.8 g/dL | EXTERNAL | | | | performed at [facility], [address] | | LAB | | | | [address], | | | | | | [place] [address] | | | | + + + + + + | Globulin | 3.2Comment: Testing | 1.3 - 4.9 g/dL | EXTERNAL | | | | performed at [facility], [address] | | LAB | | | | [address], | | | | | | [place] [address] | | | | + + + + + + | A/G Ratio | 1.1Comment: Testing | 1.0 - 2.4 | EXTERNAL | | | | performed at [facility], [address] | | LAB | | | | [address], | | | | | | [place] [address] | | | | + + + + + + | Bilirubin | 0.3Comment: Testing | 0.1 - 1.5 mg/dL | EXTERNAL | | | Total | performed at [facility], [address] | | LAB | | | | [address], | | | | | | [place] [address] | | | | + + + + + + | ALP, | 85Comment: Testing | 35 - 115 U/L | EXTERNAL | | | External | performed at [facility], [address] | | LAB | | | | [address], | | | | | | [place] [address] | | | | + + + + + + | AST | 10Comment: Testing | 10 - 45 U/L | EXTERNAL | | | | performed at [facility], [address] | | LAB | | | | [address], | | | | | | [place] [address] | | | | + + + + + + | ALT | 8 (L)Comment: Testing | 10 - 65 U/L | EXTERNAL | | | | performed at [facility], [address] | | LAB | | | | [address], | | | | | | [place] [address] | | | | + + + + + + | Estimated | 22 (L)Comment: GFR <60: | mL/min/1.73m2 | EXTERNAL [...] | | | | | | at [facility], [address] | | | | | | [address], | | | | | | [place] [address] | | | | + + + + + + + + | Specimen | + + | Blood specimen | | (specimen) | + + + +---------+ + + | Performing | Address | City/State/Zipcode | Phone Number | | Organization | | | | + +---------+ + + | EXTERNAL LAB | | | | + +---------+ + + POC Glucose (05/04/2014 9:37 PM PDT) + + + + + + | Component | Value | Ref Range | Performed | Pathologist | | | | | At | Signature | + + + + + + | Glucose, | 217 (H)Comment: Testing | 65 - 99 mg/dL | EXTERNAL | | | Fingerstick | performed at [facility];[address] | | LAB | | | | [address];[place], [place] | | | | | | [address] | | | | + + + + + + + + | Specimen | + + | | + + + +---------+ + + | Performing | Address | City/State/Zipcode | Phone Number | | Organization | | | | + +---------+ + + | EXTERNAL LAB | | | | + +---------+ + + POC Glucose (05/04/2014 3:46 PM PDT) + + + + + + | Component | Value | Ref Range | Performed | Pathologist | | | | | At | Signature | + + + + + + | Glucose, | 207 (H)Comment: Testing | 65 - 99 mg/dL | EXTERNAL | | | Fingerstick | performed at [facility] | | LAB | | | | [address];[place] | | | | | | [address] | | | | + + + + + + + + | Specimen | + + | | + + + +---------+ + + | Performing | Address | City/State/Zipcode | Phone Number | | Organization | | | | + +---------+ + + | EXTERNAL LAB | | | | + +---------+ + + POC Glucose (05/04/2014 11:38 AM PDT) + + + + + + | Component | Value | Ref Range | Performed | Pathologist | | | | | At | Signature | + + + + + + | Glucose, | 281 (H)Comment: Testing | 65 - 99 mg/dL | EXTERNAL | | | Fingerstick | performed at [facility];[address] | | LAB | | | | [address];[place] | | | | | | [address] | | | | + + + + + + + + | Specimen | + + | | + + + +---------+ + + | Performing | Address | City/State/Zipcode | Phone Number | | Organization | | | | + +---------+ + + | EXTERNAL LAB | | | | + +---------+ + + POC Glucose (05/04/2014 5:39 AM PDT) + + + + + + | Component | Value | Ref Range | Performed | Pathologist | | | | | At | Signature | + + + + + + | Glucose, | 107 (H)Comment: Testing | 65 - 99 mg/dL | EXTERNAL | | | Fingerstick | performed at [facility];[address] | | LAB | | | | [address];[place] | | | | | | [address] | | | | + + + + + + + + | Specimen | + + | | + + + +---------+ + + | Performing | Address | City/State/Zipcode | Phone Number | | Organization | | | | + +---------+ + + | EXTERNAL LAB | | | | + +---------+ + + External Lab: CBC (05/04/2014 4:57 AM PDT) + + + + + + | Component | Value | Ref Range | Performed | Pathologist | | | | | At | Signature | + + + + + + | WBC | 10.6Comment: Testing | 3.8 - 11.0 K/uL | EXTERNAL | | | | performed at [facility], [address] | | LAB | | | | [address], | | | | | | [place] [address] | | | | + + + + + + | Non- | 4.23Comment: Testing | 3.70 - 5.10 | EXTERNAL | | | Red Blood | performed at [facility], [address] | M/uL | LAB | | | Cells | [address], | | | | | Counted | [place] [address] | | | | + + + + + + | Hemoglobin | 10.6 (L)Comment: Testing | 11.3 - 15.5 | EXTERNAL | | | | performed at [facility], [address] | g/dL | LAB | | | | [address], | | | | | | [place] [address] | | | | + + + + + + | Hematocrit, | 32.2 (L)Comment: Testing | 34.0 - 46.0 % | EXTERNAL | | | POC | performed at [facility], [address] | | LAB | | | | [address], | | | | | | [place] [address] | | | | + + + + + + | MCV | 76.3 (L)Comment: Testing | 80.0 - 100.0 fl | EXTERNAL | | | | performed at [facility], [address] | | LAB | | | | [address], | | | | | | [place] [address] | | | | + + + + + + | MCH | 25.0 (L)Comment: Testing | 27.0 - 34.0 pg | EXTERNAL | | | | performed at [facility], [address] | | LAB | | | | [address], | | | | | | [place] [address] | | | | + + + + + + | MCHC | 32.8Comment: Testing | 32.0 - 35.5 | EXTERNAL | | | | performed at [facility], [address] | g/dL | LAB | | | | [address], | | | | | | [place] [address] | | | | + + + + + + | RDW-CV | 44.6Comment: Testing | 37 - 53 fl | EXTERNAL | | | | performed at [facility], [address] | | LAB | | | | [address], | | | | | | [place] [address] | | | | + + + + + + | Platelet | 228Comment: Testing | 150 - 400 K/uL | EXTERNAL | | | Count | performed at [facility], [address] | | LAB | | | Plasma | [address], | | | | | | [place] [address] | | | | + + + + + + | MPV | 8.9Comment: Testing | fl | EXTERNAL | | | | performed at [facility], [address] | | LAB | | | | [address], | | | | | | [place] [address] | | | | + + + + + + | Differentia | AUTOMATEDComment: | | EXTERNAL | | | l Type | Testing performed at | | LAB | | | | [facility], [address] | | | | | | [place] | | | | | | [address] | | | | + + + + + + | % Segmented | 71.7Comment: Testing | % | EXTERNAL | | | | performed at [facility], [address] | | LAB | | | Neutrophils | [address], | | | | | | [place] [address] | | | | + + + + + + | % | 15.9Comment: Testing | % | EXTERNAL | | | Lymphocytes | performed at [facility], [address] | | LAB | | | | [address], | | | | | | [place] [address] | | | | + + + + + + | % Monocytes | 9.2Comment: Testing | % | EXTERNAL | | | | performed at [facility], [address] | | LAB | | | | [address], | | | | | | [place] [address] | | | | + + + + + + | % | 2.6Comment: Testing | % | EXTERNAL | | | Eosinophils | performed at [facility], [address] | | LAB | | | | [address], | | | | | | [place] [address] | | | | + + + + + + | % Basophils | 0.6Comment: Testing | % | EXTERNAL | | | | performed at [facility], [address] | | LAB | | | | [address], | | | | | | [place] [address] | | | | + + + + + + | Absolute | 7.6 (H)Comment: Testing | 1.9 - 7.4 K/uL | EXTERNAL | | | Segmented | performed at [facility], [address] | | LAB | | | Neutrophils | [address], | | | | | | [place] [address] | | | | + + + + + + | Absolute | 1.7Comment: Testing | 1.0 - 3.9 K/uL | EXTERNAL | | | Lymphocytes | performed at [facility], [address] | | LAB | | | | [address], | | | | | | [place] [address] | | | | + + + + + + | Absolute | 1.0 (H)Comment: Testing | 0 - 0.8 K/uL | EXTERNAL | | | Monocytes | performed at [facility], [address] | | LAB | | | | [address], | | | | | | [place] [address] | | | | + + + + + + | Absolute | 0.3Comment: Testing | 0 - 0.5 K/uL | EXTERNAL | | | Eosinophils | performed at [facility], [address] | | LAB | | | | [address], | | | | | | [place] [address] | | | | + + + + + + | Absolute | 0.1Comment: Testing | 0 - 0.1 K/uL | EXTERNAL | | | Basophils | performed at [facility], [address] | | LAB | | | | [email or web address], | | | | | | [place] [address] | | | | + + + + + + | RBC | Comment: 1+ | | EXTERNAL | | | Morphology | Anisocytosis1+ | | LAB | | | | Hypochromia1+ | | | | | | MicrocytosisTesting | | | | | | performed at [facility], [address] | | | | | [address], | | | | | | [place] [address] | | | | + + + + + + + + | Specimen | + + | Blood specimen | | (specimen) | + + + +---------+ + + | Performing | Address | City/State/Zipcode | Phone Number | | Organization | | | | + +---------+ + + | EXTERNAL LAB | | | | + +---------+ + + Phosphorus (05/04/2014 4:57 AM PDT) + + + + + + | Component | Value | Ref Range | Performed | Pathologist | | | | | At | Signature | + + + + + + | PHOSPHORUS | 4.7Comment: Testing | 2.3 - 4.8 mg/dL | EXTERNAL | | | | performed at [facility], [address] | | LAB | | | | [address], | | | | | | [place] [address] | | | | + + + + + + + + | Specimen | + + | Blood specimen | | (specimen) | + + + +---------+ + + | Performing | Address | City/State/Zipcode | Phone Number | | Organization | | | | + +---------+ + + | EXTERNAL LAB | | | | + +---------+ + + Magnesium (05/04/2014 4:57 AM PDT) + + + + + + | Component | Value | Ref Range | Performed | Pathologist | | | | | At | Signature | + + + + + + | Magnesium | 2.0Comment: Testing | 1.7 - 2.4 mg/dL | EXTERNAL | | | | performed at [facility], [address] | | LAB | | | | [address], | | | | | | [place] [address] | | | | + + + + + + + + | Specimen | + + | Blood specimen | | (specimen) | + + + +---------+ + + | Performing | Address | City/State/Zipcode | Phone Number | | Organization | | | | + +---------+ + + | EXTERNAL LAB | | | | + +---------+ + + Comprehensive Metabolic Panel (05/04/2014 4:57 AM PDT) + + + + + + | Component | Value | Ref Range | Performed | Pathologist | | | | | At | Signature | + + + + + + | Na | 136Comment: Testing | 135 - 143 | EXTERNAL | | | | performed at [facility], [address] | mmol/L | LAB | | | | [address], | | | | | | [place] [address] | | | | + + + + + + | K | 3.9Comment: Testing | 3.5 - 4.9 | EXTERNAL | | | | performed at [facility], [address] | mmol/L | LAB | | | | [address], | | | | | | [place] [address] | | | | + + + + + + | Cl | 102Comment: Testing | 99 - 109 mmol/L | EXTERNAL | | | | performed at [facility], [address] | | LAB | | | | [address], | | | | | | [place] [address] | | | | + + + + + + | CO2 | 26Comment: Testing | 23 - 32 mmol/L | EXTERNAL | | | | performed at [facility], [address] | | LAB | | | | [address], | | | | | | [place] [address] | | | | + + + + + + | Anion Gap | 12Comment: Testing | 5 - 20 mmol/L | EXTERNAL | | | | performed at [facility], [address] | | LAB | | | | [address], | | | | | | [place] [address] | | | | + + + + + + | Glucose, | 110 (H)Comment: Testing | 65 - 99 mg/dL | EXTERNAL | | | Fasting | performed at [facility], [address] | | LAB | | | | [address], | | | | | | [place] [address] | | | | + + + + + + | BUN | 50 (H)Comment: Testing | 8 - 25 mg/dL | EXTERNAL | | | | performed at [facility], [address] | | LAB | | | | [address], | | | | | | [place] [address] | | | | + + + + + + | Creatinine | 2.20 (H)Comment: Testing | 0.50 - 1.00 | EXTERNAL | | | | performed at [facility], [address] | mg/dL | LAB | | | | [address], | | | | | | [place] [address] | | | | + + + + + + | BUN/Creatin | 23Comment: Testing | | EXTERNAL | | | ine Ratio | performed at [facility], [address] | | LAB | | | | [address], | | | | | | [place] [address] | | | | + + + + + + | Calcium | 8.3 (L)Comment: Testing | 8.5 - 10.2 | EXTERNAL | | | | performed at [facility], [address] | mg/dL | LAB | | | | [address], | | | | | | [place] [address] | | | | + + + + + + | Protein, | 6.4Comment: Testing | 6.3 - 8.2 g/dL | EXTERNAL | | | Total | performed at [facility], [address] | | LAB | | | | [address], | | | | | | [place] [address] | | | | + + + + + + | Albumin | 3.5Comment: Testing | 3.3 - 4.8 g/dL | EXTERNAL | | | | performed at [facility], [address] | | LAB | | | | [address], | | | | | | [place] [address] | | | | + + + + + + | Globulin | 2.9Comment: Testing | 1.3 - 4.9 g/dL | EXTERNAL | | | | performed at [facility], [address] | | LAB | | | | [address], | | | | | | [place] [address] | | | | + + + + + + | A/G Ratio | 1.2Comment: Testing | 1.0 - 2.4 | EXTERNAL | | | | performed at [facility], [address] | | LAB | | | | [address], | | | | | | [place] [address] | | | | + + + + + + | Bilirubin | 0.4Comment: Testing | 0.1 - 1.5 mg/dL | EXTERNAL | | | Total | performed at [facility], [address] | | LAB | | | | [address], | | | | | | [place] [address] | | | | + + + + + + | ALP, | 86Comment: Testing | 35 - 115 U/L | EXTERNAL | | | External | performed at [facility], [address] | | LAB | | | | [address], | | | | | | [place] [address] | | | | + + + + + + | AST | 8 (L)Comment: Testing | 10 - 45 U/L | EXTERNAL | | | | performed at [facility], [address] | | LAB | | | | [address], | | | | | | [place] [address] | | | | + + + + + + | ALT | 6 (L)Comment: Testing | 10 - 65 U/L | EXTERNAL | | | | performed at [facility], [address] | | LAB | | | | [address], | | | | | | [place] [address] | | | | + + + + + + | Estimated | 23 (L)Comment: GFR <60: | mL/min/1.73m2 | EXTERNAL [...] | | | | | | [address], | | | | | | [place] [address] | | | | + + + + + + + + | Specimen | + + | Blood specimen | | (specimen) | + + + +---------+ + + | Performing | Address | City/State/Zipcode | Phone Number | | Organization | | | | + +---------+ + + | EXTERNAL LAB | | | | + +---------+ + + POC Glucose (05/03/2014 9:12 PM PDT) + + + + + + | Component | Value | Ref Range | Performed | Pathologist | | | | | At | Signature | + + + + + + | Glucose, | 173 (H)Comment: Testing | 65 - 99 mg/dL | EXTERNAL | | | Fingerstick | performed at [facility];[address] | | LAB | | | | [address];[place] | | | | | | [address] | | | | + + + + + + + + | Specimen | + + | | + + + +---------+ + + | Performing | Address | City/State/Zipcode | Phone Number | | Organization | | | | + +---------+ + + | EXTERNAL LAB | | | | + +---------+ + + POC Glucose (05/03/2014 4:15 PM PDT) + + + + + + | Component | Value | Ref Range | Performed | Pathologist | | | | | At | Signature | + + + + + + | Glucose, | 252 (H)Comment: Testing | 65 - 99 mg/dL | EXTERNAL | | | Fingerstick | performed at [facility];[address] | | LAB | | | | [address];[place] | | | | | | [address] | | | | + + + + + + + + | Specimen | + + | | + + + +---------+ + + | Performing | Address | City/State/Zipcode | Phone Number | | Organization | | | | + +---------+ + + | EXTERNAL LAB | | | | + +---------+ + + POC Glucose (05/03/2014 11:27 AM PDT) + + + + + + | Component | Value | Ref Range | Performed | Pathologist | | | | | At | Signature | + + + + + + | Glucose, | 234 (H)Comment: Testing | 65 - 99 mg/dL | EXTERNAL | | | Fingerstick | performed at [facility];[address] | | LAB | | | | [address];[place] | | | | | | [address] | | | | + + + + + + + + | Specimen | + + | | + + + +---------+ + + | Performing | Address | City/State/Zipcode | Phone Number | | Organization | | | | + +---------+ + + | EXTERNAL LAB | | | | + +---------+ + + POC Glucose (05/03/2014 5:39 AM PDT) + + + + + + | Component | Value | Ref Range | Performed | Pathologist | | | | | At | Signature | + + + + + + | Glucose, | 110 (H)Comment: Testing | 65 - 99 mg/dL | EXTERNAL | | | Fingerstick | performed at [facility];[address] | | LAB | | | | [address];[place], [place] | | | | | | [address] | | | | + + + + + + + + | Specimen | + + | | + + + +---------+ + + | Performing | Address | City/State/Zipcode | Phone Number | | Organization | | | | + +---------+ + + | EXTERNAL LAB | | | | + +---------+ + + HIV 1 and 2 Antibody Differentiation (05/03/2014 3:54 AM PDT) + + + + + + | Component | Value | Ref Range | Performed | Pathologist | | | | | At | Signature | + + + + + + | HIV 1 and 2 | NON REACTIVEComment: THE | | EXTERNAL | | | Ab | NON REACTIVE HIV 1/2 | | LAB | | | | ANTIBODY RESULT | | | | | | INDICATES THAT | | | | | | ANTIBODIES TO HIV 1/2 | | | | | | HAVE NOT BEEN DETECTED | | | | | | IN THIS SPECIMEN. THIS | | | | | | RESULT DOES NOT | | | | | | PRECLUDE PREVIOUS | | | | | | EXPOSURE OR | | | | | | INFECTION.Testing | | | | | | performed at [facility], [address] | | | | | | [facility], | | | | | | [place] [address] | | | | + + + + + + + + | Specimen | + + | Blood specimen | | (specimen) | + + + +---------+ + + | Performing | Address | City/State/Zipcode | Phone Number | | Organization | | | | + +---------+ + + | EXTERNAL LAB | | | | + +---------+ + + External Lab: CBC (05/03/2014 3:54 AM PDT) + + + + + + | Component | Value | Ref Range | Performed | Pathologist | | | | | At | Signature | + + + + + + | WBC | 11.3 (H)Comment: Testing | 3.8 - 11.0 K/uL | EXTERNAL | | | | performed at [facility], [address] | | LAB | | | | [address], | | | | | | [place] [address] | | | | + + + + + + | Non- | 4.02Comment: Testing | 3.70 - 5.10 | EXTERNAL | | | Red Blood | performed at [facility], [address] | M/uL | LAB | | | Cells | [address], | | | | | Counted | [place] [address] | | | | + + + + + + | Hemoglobin | 10.1 (L)Comment: Testing | 11.3 - 15.5 | EXTERNAL | | | | performed at [facility], [address] | g/dL | LAB | | | | [address], | | | | | | [place] [address] | | | | + + + + + + | Hematocrit, | 30.8 (L)Comment: Testing | 34.0 - 46.0 % | EXTERNAL | | | POC | performed at [facility], [address] | | LAB | | | | [address], | | | | | | [place] [address] | | | | + + + + + + | MCV | 76.7 (L)Comment: Testing | 80.0 - 100.0 fl | EXTERNAL | | | | performed at [facility], [address] | | LAB | | | | [address], | | | | | | [place] [address] | | | | + + + + + + | MCH | 25.2 (L)Comment: Testing | 27.0 - 34.0 pg | EXTERNAL | | | | performed at [facility], [address] | | LAB | | | | [address], | | | | | | [place] [address] | | | | + + + + + + | MCHC | 32.9Comment: Testing | 32.0 - 35.5 | EXTERNAL | | | | performed at [facility], [address] | g/dL | LAB | | | | [address], | | | | | | [place] [address] | | | | + + + + + + | RDW-CV | 44.2Comment: Testing | 37 - 53 fl | EXTERNAL | | | | performed at [facility], [address] | | LAB | | | | [address], | | | | | | [place] [address] | | | | + + + + + + | Platelet | 218Comment: Testing | 150 - 400 K/uL | EXTERNAL | | | Count | performed at [facility], [address] | | LAB | | | Plasma | [address], | | | | | | [place] [address] | | | | + + + + + + | MPV | 9.0Comment: Testing | fl | EXTERNAL | | | | performed at [facility], [address] | | LAB | | | | [address], | | | | | | [place] [address] | | | | + + + + + + | Differentia | AUTOMATEDComment: | | EXTERNAL | | | l Type | Testing performed at | | LAB | | | | [facility], [address] | | | | | | [place] | | | | | | [address] | | | | + + + + + + | % Segmented | 72.6Comment: Testing | % | EXTERNAL | | | | performed at [facility], [address] | | LAB | | | Neutrophils | [address], | | | | | | [place] [address] | | | | + + + + + + | % | 17.2Comment: Testing | % | EXTERNAL | | | Lymphocytes | performed at [facility], [address] | | LAB | | | | [address], | | | | | | [place] [address] | | | | + + + + + + | % Monocytes | 7.2Comment: Testing | % | EXTERNAL | | | | performed at [facility], [address] | | LAB | | | | [address], | | | | | | [place] [address] | | | | + + + + + + | % | 2.3Comment: Testing | % | EXTERNAL | | | Eosinophils | performed at [facility], [address] | | LAB | | | | [address], | | | | | | [place] [address] | | | | + + + + + + | % Basophils | 0.7Comment: Testing | % | EXTERNAL | | | | performed at [facility], [address] | | LAB | | | | [address], | | | | | | [place] [address] | | | | + + + + + + | Absolute | 8.2 (H)Comment: Testing | 1.9 - 7.4 K/uL | EXTERNAL | | | Segmented | performed at [facility], [address] | | LAB | | | Neutrophils | [address], | | | | | | [place] [address] | | | | + + + + + + | Absolute | 1.9Comment: Testing | 1.0 - 3.9 K/uL | EXTERNAL | | | Lymphocytes | performed at [facility], [address] | | LAB | | | | [address], | | | | | | [place] [address] | | | | + + + + + + | Absolute | 0.8Comment: Testing | 0 - 0.8 K/uL | EXTERNAL | | | Monocytes | performed at [facility], [address] | | LAB | | | | [address], | | | | | | [place] [address] | | | | + + + + + + | Absolute | 0.3Comment: Testing | 0 - 0.5 K/uL | EXTERNAL | | | Eosinophils | performed at [facility], [address] | | LAB | | | | [address], | | | | | | [place] [address] | | | | + + + + + + | Absolute | 0.1Comment: Testing | 0 - 0.1 K/uL | EXTERNAL | | | Basophils | performed at [facility], [address] | | LAB | | | | [address], | | | | | | [place] [address] | | | | + + + + + + | RBC | Comment: 1+ | | EXTERNAL | | | Morphology | Anisocytosis1+ | | LAB | | | | Hypochromia1+ | | | | | | MicrocytosisTesting | | | | | | performed at [facility], [address] | | | | | | [address] [facility], | | | | | | [place] [address] | | | | + + + + + + + + | Specimen | + + | Blood specimen | | (specimen) | + + + +---------+ + + | Performing | Address | City/State/Zipcode | Phone Number | | Organization | | | | + +---------+ + + | EXTERNAL LAB | | | | + +---------+ + + Protein Electrophoresis and JESSICA, Serum (05/03/2014 3:54 AM PDT) + + + + + + | Component | Value | Ref Range | Performed | Pathologist | | | | | At | Signature | + + + + + + | Protein, | 6.1Comment: Testing | 6.1 - 7.8 g/dL | EXTERNAL | | | Total | performed at [facility], [address] | | LAB | | | | [address] | | | | | | [place] [address] | | | | + + + + + + | ELP Albumin | 3.3Comment: Testing | 3.3 - 4.8 g/dL | EXTERNAL | | | % | performed at [facility], [address] | | LAB | | | | [address] | | | | | | [place] [address] | | | | + + + + + + | ALPHA 1, BF | 0.2Comment: Testing | 0.1 - 0.4 g/dL | EXTERNAL | | | | performed at [facility], [address] | | LAB | | | | [address] [place] | | | | | | [place] [address] | | | | + + + + + + | ALPHA 2 | 0.7Comment: Testing | 0.5 - 1.1 g/dL | EXTERNAL | | | GLOBULIN | performed at [facility], [address] | | LAB | | | | [address] | | | | | | [place] [address] | | | | + + + + + + | Beta-1 | 0.6Comment: Testing | 0.4 - 0.8 g/dL | EXTERNAL | | | | performed at [facility], [address] | | LAB | | | | [address] [place] | | | | | | [place] [address] | | | | + + + + + + | BETA 2, BF | 0.3Comment: Testing | 0.2 - 0.5 g/dL | EXTERNAL | | | | performed at [facility], [address] | | LAB | | | | [address] | | | | | | [place] [address] | | | | + + + + + + | GAMMA, BF | 0.9Comment: Testing | 0.6 - 1.5 g/dL | EXTERNAL | | | | performed at [facility], [address] | | LAB | | | | [place] | | | | | | [place] [address] | | | | + + + + + + | Albumin | 54.8Comment: Testing | 45.0 - 80.0 % | EXTERNAL | | | | performed at [facility], [address] | | LAB | | | | [place] | | | | | | [place] [address] | | | | + + + + + + | ALPHA 1, BF | 3.8Comment: Testing | 1.0 - 6.0 % | EXTERNAL | | | | performed at [facility], [address] | | LAB | | | | [address] | | | | | | [place] [address] | | | | + + + + + + | Alpha 2 % | 11.3Comment: Testing | 6.0 - 17.0 % | EXTERNAL | | | | performed at [facility], [address] | | LAB | | | | [address] | | | | | | [place] [address] | | | | + + + + + + | Beta-1 % | 9.4Comment: Testing | 5.0 - 13.0 % | EXTERNAL | | | | performed at [facility], [address] | | LAB | | | | [address] | | | | | | [place] [address] | | | | + + + + + + | Beta-2 % | 5.2Comment: Testing | 2.0 - 8.0 % | EXTERNAL | | | | performed at [facility], [address] | | LAB | | | | [place] [address] [place] | | | | | | [place] [address] | | | | + + + + + + | GAMMA, BF | 15.5Comment: Testing | 7.5 - 24.0 % | EXTERNAL | | | | performed at [facility], [address] | | LAB | | | | [address] [place] | | | | | | [place] [address] | | | | + + + + + + | ELP | SEE BELOWComment: NO | | EXTERNAL | | | INTERPRETAT | SIGNIFICANT | | LAB | | | ION | ABNORMALITIES IN THE | | | | | | SERUM PROTEIN | | | | | | PATTERN.INTERPRETED BY | | | | | | JLBTesting performed at | | | | | | [facility], [address] | | | | | | [place] | | | | | | [address] | | | | + + + + + + | Immunofixat | SEE BELOWComment: SERUM | | EXTERNAL | | | ion, Urine | JESSICA STUDIES SHOW NO | | LAB | | | Interp | EVIDENCE OF MONOCLONAL | | | | | | GAMMOPATHY.INTERPRETED | | | | | | BY JLBTesting performed | | | | | | at [facility], [address] | | | | | | [place] | | | | | | [address] | | | | + + + + + + + + | Specimen | + + | Blood specimen | | (specimen) | + + + +---------+ + + | Performing | Address | City/State/Zipcode | Phone Number | | Organization | | | | + +---------+ + + | EXTERNAL LAB | | | | + +---------+ + + Phosphorus (05/03/2014 3:54 AM PDT) + + + + + + | Component | Value | Ref Range | Performed | Pathologist | | | | | At | Signature | + + + + + + | PHOSPHORUS | 5.4 (H)Comment: Testing | 2.3 - 4.8 mg/dL | EXTERNAL | | | | performed at [facility], [address] | | LAB | | | | [address], | | | | | | [place] [address] | | | | + + + + + + + + | Specimen | + + | Blood specimen | | (specimen) | + + + +---------+ + + | Performing | Address | City/State/Zipcode | Phone Number | | Organization | | | | + +---------+ + + | EXTERNAL LAB | | | | + +---------+ + + Magnesium (05/03/2014 3:54 AM PDT) + + + + + + | Component | Value | Ref Range | Performed | Pathologist | | | | | At | Signature | + + + + + + | Magnesium | 2.3Comment: Testing | 1.7 - 2.4 mg/dL | EXTERNAL | | | | performed at [facility], [address] | | LAB | | | | [facility], | | | | | | [place] [address] | | | | + + + + + + + + | Specimen | + + | Blood specimen | | (specimen) | + + + +---------+ + + | Performing | Address | City/State/Zipcode | Phone Number | | Organization | | | | + +---------+ + + | EXTERNAL LAB | | | | + +---------+ + + Comprehensive Metabolic Panel (05/03/2014 3:54 AM PDT) + + + + + + | Component | Value | Ref Range | Performed | Pathologist | | | | | At | Signature | + + + + + + | Na | 132 (L)Comment: Testing | 135 - 143 | EXTERNAL | | | | performed at [facility], [address] | mmol/L | LAB | | | | [address], | | | | | | [place] [address] | | | | + + + + + + | K | 4.8Comment: Testing | 3.5 - 4.9 | EXTERNAL | | | | performed at [facility], [address] | mmol/L | LAB | | | | [address], | | | | | | [place] [address] | | | | + + + + + + | Cl | 105Comment: Testing | 99 - 109 mmol/L | EXTERNAL | | | | performed at [facility], [address] | | LAB | | | | [address], | | | | | | [place] [address] | | | | + + + + + + | CO2 | 20 (L)Comment: Testing | 23 - 32 mmol/L | EXTERNAL | | | | performed at [facility], [address] | | LAB | | | | [address], | | | | | | [place] [address] | | | | + + + + + + | Anion Gap | 12Comment: Testing | 5 - 20 mmol/L | EXTERNAL | | | | performed at [facility], [address] | | LAB | | | | [address], | | | | | | [place] [address] | | | | + + + + + + | Glucose, | 120 (H)Comment: Testing | 65 - 99 mg/dL | EXTERNAL | | | Fasting | performed at [facility], [address] | | LAB | | | | [address], | | | | | | [place] [address] | | | | + + + + + + | BUN | 47 (H)Comment: Testing | 8 - 25 mg/dL | EXTERNAL | | | | performed at [facility], [address] | | LAB | | | | [address], | | | | | | [place] [address] | | | | + + + + + + | Creatinine | 2.15 (H)Comment: Testing | 0.50 - 1.00 | EXTERNAL | | | | performed at [facility], [address] | mg/dL | LAB | | | | [address], | | | | | | [place] [address] | | | | + + + + + + | BUN/Creatin | 22Comment: Testing | | EXTERNAL | | | ine Ratio | performed at [facility], [address] | | LAB | | | | [address], | | | | | | [place] [address] | | | | + + + + + + | Calcium | 8.2 (L)Comment: Testing | 8.5 - 10.2 | EXTERNAL | | | | performed at [facility], [address] | mg/dL | LAB | | | | [address], | | | | | | [place] [address] | | | | + + + + + + | Protein, | 6.5Comment: Testing | 6.3 - 8.2 g/dL | EXTERNAL | | | Total | performed at [facility], [address] | | LAB | | | [address], | | | | | | [place] [address] | | | | + + + + + + | Albumin | 3.6Comment: Testing | 3.3 - 4.8 g/dL | EXTERNAL | | | | performed at [facility], [address] | | LAB | | | | [address], | | | | | | [place] [address] | | | | + + + + + + | Globulin | 2.9Comment: Testing | 1.3 - 4.9 g/dL | EXTERNAL | | | | performed at [facility], [address] | | LAB | | | | [address], | | | | | | [place] [address] | | | | + + + + + + | A/G Ratio | 1.2Comment: Testing | 1.0 - 2.4 | EXTERNAL | | | | performed at [facility], [address] | | LAB | | | [address], | | | | | | [place] [address] | | | | + + + + + + | Bilirubin | 0.6Comment: Testing | 0.1 - 1.5 mg/dL | EXTERNAL | | | Total | performed at [facility], [address] | | LAB | | | | [address], | | | | | | [place] [address] | | | | + + + + + + | ALP, | 92Comment: Testing | 35 - 115 U/L | EXTERNAL | | | External | performed at [facility], [address] | | LAB | | | | [address], | | | | | | [place] [address] | | | | + + + + + + | AST | 11Comment: Testing | 10 - 45 U/L | EXTERNAL | | | | performed at [facility], [address] | | LAB | | | | [address], | | | | | | [place] [address] | | | | + + + + + + | ALT | 10Comment: Testing | 10 - 65 U/L | EXTERNAL | | | | performed at [facility], [address] | | LAB | | | | [address], | | | | | | [place] [address] | | | | + + + + + + | Estimated | 23 (L)Comment: GFR <60: | mL/min/1.73m2 | EXTERNAL [...] | | | | | | at [facility], [address] | | | | | | [address], | | | | | | [place] [address] | | | | + + + + + + + + | Specimen | + + | Blood specimen | | (specimen) | + + + +---------+ + + | Performing | Address | City/State/Zipcode | Phone Number | | Organization | | | | + +---------+ + + | EXTERNAL LAB | | | | + +---------+ + + POC Glucose (05/02/2014 9:58 PM PDT) + + + + + + | Component | Value | Ref Range | Performed | Pathologist | | | | | At | Signature | + + + + + + | Glucose, | 114 (H)Comment: Testing | 65 - 99 mg/dL | EXTERNAL | | | Fingerstick | performed at [facility];[address] | | LAB | | | | [address];[place] | | | | | | [address] | | | | + + + + + + + + | Specimen | + + | | + + + +---------+ + + | Performing | Address | City/State/Zipcode | Phone Number | | Organization | | | | + +---------+ + + | EXTERNAL LAB | | | | + +---------+ + + Eosinophil Smear, Urine (05/02/2014 5:21 PM PDT) + + + + + + | Component | Value | Ref Range | Performed | Pathologist | | | | | At | Signature | + + + + + + | Eosinophils | NO EOSINOPHILS | % | EXTERNAL | | | , Urine | SEENComment: Testing | | LAB | | | | performed at [facility], [address] | | | | | | [address], | | | | | | [place] [address] | | | | + + + + + + + + | Specimen | + + | | + + + +---------+ + + | Performing | Address | City/State/Zipcode | Phone Number | | Organization | | | | + +---------+ + + | EXTERNAL LAB | | | | + +---------+ + + US Renal Limited (05/02/2014 5:13 PM PDT) + + | Specimen | + + | | + + + + + | Impressions | Performed At | + + + | 1. Unremarkable renal ultrasound. | | + + + + + + | Narrative | Performed At | + + + | [facility] HISTORY: 83 years. | | | Female. Chronic kidney disease. TECHNIQUE: Sonographic evaluation | | | of the kidneys and bladder was performed. COMPARISON: None. | | | FINDINGS: The right kidney measures 9.4 x 4.8 x 4.5 cm. The left | | | kidney measures 10.2 x 5.4 x 4.8 cm. The kidneys have a normal | | | cortical echotexture without evidence of hydronephrosis. The | | | bladder is completely empty. The patient voided prior to imaging. | | + + + + -+ | Procedure Note | + -+ | Mateus Young Conversion - 06/16/2019 4:04 PM PDT [facility] | | HISTORY:83 years. Female. Chronic kidney disease. TECHNIQUE:Sonographic evaluation of | | the kidneys and bladder was performed. COMPARISON:None. FINDINGS:The right kidney | | measures 9.4 x 4.8 x 4.5 cm. The left kidney measures 10.2 x 5.4 x 4.8 cm. The kidneys | | have a normal cortical echotexture without evidence of hydronephrosis. The bladder is | | completely empty. The patient voided prior to imaging. IMPRESSION: 1. Unremarkable | | renal ultrasound. | |Sonographic evaluation of the kidneys and bladder was performed. | | | |COMPARISON: | |None. | | | |FINDINGS: | |The right kidney measures 9.4 x 4.8 x 4.5 cm. The left kidney measures 10.2 x 5.4 x 4.8 cm. | | | |The kidneys have a normal cortical echotexture without evidence of hydronephrosis. | | | |The bladder is completely empty. The patient voided prior to imaging. | | | |IMPRESSION: | |1. Unremarkable renal ultrasound. | | | | | + -+ POC Glucose (05/02/2014 4:14 PM PDT) + + + + + + | Component | Value | Ref Range | Performed | Pathologist | | | | | At | Signature | + + + + + + | Glucose, | 129 (H)Comment: Testing | 65 - 99 mg/dL | EXTERNAL | | | Fingerstick | performed at [id number] | | LAB | | | | [address] [facility];[place], [place] | | | | | | [id number] | | | | + + + + + + + + | Specimen | + + | | + + + +---------+ + + | Performing | Address | City/State/Zipcode | Phone Number | | Organization | | | | + +---------+ + + | EXTERNAL LAB | | | | + +---------+ + + [place] (05/02/2014 3:36 PM PDT) + + + + + + | Component | Value | Ref Range | Performed | Pathologist | | | | | At | Signature | + + + + + + | [facility] [place] | 4.80 (H)Comment: Testing | 0.33 - 1.94 | EXTERNAL | | | Free Light | performed at [facility], [address] | mg/dL | LAB | | | Chain | [address] | | | | | | [place] [address] | | | | + + + + + + | kaplamflc | 4.76 (H)Comment: Testing | 0.57 - 2.63 | EXTERNAL | | | | performed at [facility], [address] | mg/dL | LAB | | | | [address] | | | | | | [place] [address] | | | | + + + + + + | [place] | 1.01Comment: NOTE: NEW | 0.26 - 1.65 | EXTERNAL | | | a Free | METHOD OF MAY | | LAB | | | Light Chain | . RESULTS | | | | | Ratio | OBTAINED BY USING | | | | | | THEBINDING SITE REAGENTS | | | | | | ON A [employer] | | | | | | ANALYZER. RESULTS MAY | | | | | | VARYFROM PREVIOUS | | | | | | METHOD.Testing performed | | | | | | at [facility], [address] | | | | | | [place] | | | | | | [address] | | | | + + + + + + + + | Specimen | + + | | + + + +---------+ + + | Performing | Address | City/State/Zipcode | Phone Number | | Organization | | | | + +---------+ + + | EXTERNAL LAB | | | | + +---------+ + + Hepatitis A, B, C Vaughn Dinero (05/02/2014 3:36 PM PDT) + + + + + + | Component | Value | Ref Range | Performed | Pathologist | | | | | At | Signature | + + + + + + | Hep A Total | REACTIVE (A)Comment: | | EXTERNAL | | | Ab Interp | Testing performed at | | LAB | | | | [facility], [address] | | | | | | [place] | | | | | | [address] | | | | + + + + + + | HEP A IGM | NON REACTIVEComment: | | EXTERNAL | | | | Testing performed at | | LAB | | | | [facility], [address] | | | | | | [place] | | | | | | [address] | | | | + + + + + + | Hepatitis B | NON REACTIVEComment: | | EXTERNAL | | | Surface Ag | Testing performed at | | LAB | | | | [facility], [address] | | | | | | [place] | | | | | | [address] | | | | + + + + + + | Hepatitis B | NON REACTIVEComment: | | EXTERNAL | | | Core Ab | Testing performed at | | LAB | | | Total | [facility], [address] [facility] | | | | | | [place] | | | | | | [address] | | | | + + + + + + | HCV Ab | NON REACTIVEComment: | | EXTERNAL | | | | Testing performed at | | LAB | | | | [facility], [address] [facility] | | | | | | [place] | | | | | | [address] | | | | + + + + + + | Hepatitis | No serologic evidence of | | EXTERNAL | | | Interpretat | current or past | | LAB | | | ion | Hepatitis B virus | | | | | | infection.Comment: HAV | | | | | | infection in remote | | | | | | past.Absence of antibody | | | | | | suggests no past | | | | | | Hepatitis C infection. | | | | | | Since antibody | | | | | | development may be | | | | | | delayed up to 6 months | | | | | | after infection, | | | | | | retesting may be | | | | | | indicated.Testing | | | | | | performed at [facility], [address] | | | | | | [facility] [place], | | | | | | [place] [address] | | | | + + + + + + + + | Specimen | + + | | + + + +---------+ + + | Performing | Address | City/State/Zipcode | Phone Number | | Organization | | | | + +---------+ + + | EXTERNAL LAB | | | | + +---------+ + + C3 and C4 (05/02/2014 3:36 PM PDT) + + + + + + | Component | Value | Ref Range | Performed | Pathologist | | | | | At | Signature | + + + + + + | C3 | 104Comment: Testing | 90 - 180 mg/dL | EXTERNAL | | | COMPLEMENT | performed at [facility], [address] | | LAB | | | | [address], | | | | | | [place] [address] | | | | + + + + + + | Complement | 20.9Comment: Testing | 10 - 40 mg/dL | EXTERNAL | | | Comp 4 | performed at [facility], [address] | | LAB | | | [address], | | | | | | [place] [address] | | | | + + + + + + + + | Specimen | + + | | + + + +---------+ + + | Performing | Address | City/State/Zipcode | Phone Number | | Organization | | | | + +---------+ + + | EXTERNAL LAB | | | | + +---------+ + + Iron and Iron Binding Capacity (05/02/2014 3:36 PM PDT) + + + + + + | Component | Value | Ref Range | Performed | Pathologist | | | | | At | Signature | + + + + + + | Iron | 65Comment: Testing | 30 - 180 ug/dL | EXTERNAL | | | | performed at [facility], [address] | | LAB | | | | [address], | | | | | | [place] [address] | | | | + + + + + + | TIBC | 407Comment: Testing | 260 - 490 ug/dL | EXTERNAL | | | | performed at [facility], [address] | | LAB | | | | [address], | | | | | | [place] [address] | | | | + + + + + + | Iron | 16Comment: Testing | 15 - 50 % | EXTERNAL | | | Saturation | performed at [facility], [address] | | LAB | | | | [address], | | | | | | [place] [address] | | | | + + + [...] + + Parathyroid Hormone, Intact and Calcium (05/02/2014 3:36 PM PDT) + + + + + + | Component | Value | Ref Range | Performed | Pathologist | | | | | At | Signature | + + + + + + | Calcium | 7.7 (L)Comment: VERIFIED | 8.5 - 10.2 | EXTERNAL | | | | BY REPEAT | mg/dL | LAB | | | | ANALYSIS.Testing | | | | | | performed at [facility], [address] | | | | | | [address] | | | | | | [place] [address] | | | | + + + + + + | PTH Intact | 93 (H)Comment: NOMOGRAM | 12 - 88 pg/mL | EXTERNAL | | | | SUGGESTS SECONDARY | | LAB | | | | HYPERPARATHYROIDISM: | | | | | | RICKETS,OSTEOMALACIA, | | | | | | CHRONIC RENAL FAILURE, | | | | | | FANCONI SYNDROME, RENAL | | | | | | TUBULARACIDOSIS, VITAMIN | | | | | | D DEFICIENCY SECONDARY | | | | | | TO MALABSORPTION, | | | | | | RENALFAILURE OR PSEUDO | | | | | | HYPERPARATHYROIDISM.DIAG | | | | | | NOSIS OF PARATHYROID | | | | | | DISEASE REQUIRES BOTH | | | | | | CLINICAL AND | | | | | | LABORATORYDATA.Testing | | | | | | performed at [facility], [address] | | | | | | [facility] | | | | | | [place] [address] | | | | + + + + + + + + | Specimen | + + | Blood specimen | | (specimen) | + + + +---------+ + + | Performing | Address | City/State/Zipcode | Phone Number | | Organization | | | | + +---------+ + + | EXTERNAL LAB | | | | + +---------+ + + Glomerular Basement Membrane Ab, IgG (05/02/2014 3:36 PM PDT) + + + + + + | Component | Value | Ref Range | Performed | Pathologist | | | | | At | Signature | + + + + + + | GBM AB | 3Comment: NOTE NEW | 0 - 20 U/mL | EXTERNAL | | | | REFERENCE RANGE AND | | LAB | | | | UNITSREFERENCE RANGE:0 | | | | | | - 20 [id number] - 30 | | | | | | WEAK POSITIVE>30 | | | | | | MODERATE TO STRONG | | | | | | POSITIVETHIS TEST IS | | | | | | DESIGNED FOR THE IN | | | | | | VITRO MEASUREMENT OF | | | | | | SPECIFIC | | | | | | IGGAUTOANTIBODIES | | | | | | AGAINST THE GLOMERULAR | | | | | | BASEMENT MEMBRANE | | | | | | (GBM).IT IS INTENDED | | | | | | AN AID IN THE DIAGNOSIS | | | | | | OF GOODPASTURE'S | | | | | | SYNDROME.SOME PATIENTS | | | | | | WITH OTHER RENAL | | | | | | DISEASES MAY EXHIBIT | | | | | | POSITIVE | | | | | | RESULTS.GLOMERULAR | | | | | | BASEMENT MEMBRANE | | | | | | ANTIBODIES ARE NOT FOUND | | | | | | IN NORMALHEALTHY | | | | | | INDIVIDUALS.RESULTS WERE | | | | | | OBTAINED WITH THE | | | | | | [employer] GBM | | | | | | ELEANOR ASSAY.VALUES | | | | | | OBTAINED FROM DIFFERENT | | | | | | [employer] | | | | | | CANNOT BE | | | | | | USEDINTERCHANGEABLY. | | | | | | THE MAGNITUDE OF THE | | | | | | REPORTED IGG LEVELS | | | | | | CANNOT BECORRELATED TO | | | | | | AN ENDPOINT | | | | | | TITER.Testing performed | | | | | | at [facility], [address] | | | | | | [place] | | | | | | [address] | | | | + + + + + + + + | Specimen | + + | Blood specimen | | (specimen) | + + + +---------+ + + | Performing | Address | City/State/Zipcode | Phone Number | | Organization | | | | + +---------+ + + | EXTERNAL LAB | | | | + +---------+ + + Vitamin D, Deficiency Screen (25-Hydroxy) (05/02/2014 3:36 PM PDT) + + + + + + | Component | Value | Ref Range | Performed | Pathologist | | | | | At | Signature | + + + + + + | Vit D, | <12 (L)Comment: <20 | 30 - 150 ng/mL | EXTERNAL | | | 25-Hydroxy | ng/mL Suggests | | LAB | | | | deficiency of 25-OH | | | | | | Vitamin D.20-29 ng/mL | | | | | | Suggests a relative | | | | | | insufficiency of 25-OH | | | | | | Vitamin D.30-150 ng/mL | | | | | | Suggests a sufficient | | | | | | level of 25-OH Vitamin | | | | | | D.>150 ng/mL Toxic | | | | | | level of 25-OH Vitamin | | | | | | D.Blood levels of 25 | | | | | | Hydroxy Vitamin D vary | | | | | | with the extent of sun | | | | | | exposure. Values tend to | | | | | | be highest in late | | | | | | summer and lowest in the | | | | | | spring. Values also | | | | | | tend to decrease with | | | | | | age, due to decreased | | | | | | precursor synthesis in | | | | | | the skin.Testing | | | | | | performed at [facility], [address] | | | | | | [facility], | | | | | | [place] [address] | | | | + + + + + + + + | Specimen | + + | Blood specimen | | (specimen) | + + + +---------+ + + | Performing | Address | City/State/Zipcode | Phone Number | | Organization | | | | + +---------+ + + | EXTERNAL LAB | | | | + +---------+ + + YAMILETH Profile, Reflex (05/02/2014 3:36 PM PDT) + + + + + + | Component | Value | Ref Range | Performed | Pathologist | | | | | At | Signature | + + + + + + | YAMILETH | NEGATIVEComment: A | | EXTERNAL | | | | MULTIPLEX SCREEN FOR 11 | | LAB | | | | AUTOANTIBODIES (DSDNA, | | | | | | SM, RIBOSOMAL | | | | | | P,CHROMATIN, CHEMICAL MANAGER, SM | | | | | | CHEMICAL MANAGER, SCL-70, CENTROMERE | | | | | | B, SSA, SSB AND ROBERT-1) | | | | | | WASPERFORMED AND NO | | | | | | AUTOANTIBODIES WERE | | | | | | DETECTED.Testing | | | | | | performed at [facility], [address] | | | | | | [address] | | | | | | [place] [address] | | | | + + + + + + | ANCA Screen | <1:20Comment: REFERENCE | | EXTERNAL | | | | RANGE: <1:20Testing | | LAB | | | | performed at [facility], [address] | | | | | | [address] | | | | | | [place] [address] | | | | + + + + + + | ANCA | 2Comment: NEGATIVE | U/mL | EXTERNAL | | | Proteinase | < 20WEAK | | LAB | | | 3 | TO MOD POS | | | | | | 20-30POSITIVE | | | | | | > 30PR3 | | | | | | ANTIBODY IS A MARKER FOR | | | | | | SAURABH'S | | | | | | GRANULOMATOSIS AND IS | | | | | | RARELYDETECTED IN | | | | | | MICROSCOPIC | | | | | | POLYARTERITIS.THE | | | | | | QUANTITY OF PR3 ANTIBODY | | | | | | GENERALLY PARALLELS | | | | | | DISEASE ACTIVITY,WHERE | | | | | | AN INCREASE IN DISEASE | | | | | | IS ACCOMPANIED BY | | | | | | INCREASING VALUES OFPR3 | | | | | | ANTIBODY.ANTIBODY TO PR3 | | | | | | AN ELASTINOLYTIC NEURAL | | | | | | SERINE PROTEASE, | | | | | | ISRESPONSIBLE FOR THE | | | | | | CYTOPLASMIC PATTERN OF | | | | | | ANTI NEUTROPHIL | | | | | | CYTOPLASMICANTIBODIES.Te | | | | | | sting performed at [facility], | | | | | | [address], | | | | | | [place] [address] | | | | + + + + + + | Myeloperoxi | 2Comment: NEGATIVE | U/mL | EXTERNAL | | | dase | < 20WEAK | | LAB | | | Antibody | TO MOD POS | | | | | | 20-30POSITIVE | | | | | | > 30ANTIBODY | | | | | | TO MPO IS ASSOCIATED | | | | | | WITH ORGAN LIMITED | | | | | | VASCULITIS | | | | | | INCLUDINGNECROTIZING AND | | | | | | CRESCENTIC | | | | | | GLOMERULONEPHRITIS.THIS | | | | | | ASSAY IS USEFUL IN | | | | | | CONFIRMING MPO SPECIFIC | | | | | | ANTIBODIES IN SERATHAT | | | | | | ARE POSITIVE FOR ANTI | | | | | | NEUTROPHIL CYTOPLASMIC | | | | | | ANTIBODIES OF | | | | | | THEPERINUCLEAR | | | | | | TYPE.TYPICALLY THE LEVEL | | | | | | OF MPO ANTIBODY | | | | | | PARALLELS DISEASE | | | | | | ACTIVITIES,WHERE | | | | | | INCREASING DISEASE | | | | | | ACTIVITY IS ASSOCIATED | | | | | | WITH INCREASING | | | | | | MPOANTIBODY | | | | | | LEVELS.Testing performed | | | | | | at [facility], [address] | | | | | | [place] | | | | | | [address] | | | | + + + + + + + + | Specimen | + + | Blood specimen | | (specimen) | + + + +---------+ + + | Performing | Address | City/State/Zipcode | Phone Number | | Organization | | | | + +---------+ + + | EXTERNAL LAB | | | | + +---------+ + + Uric Acid (05/02/2014 3:36 PM PDT) + + + + + + | Component | Value | Ref Range | Performed | Pathologist | | | | | At | Signature | + + + + + + | Uric Acid | 8.1 (H)Comment: Testing | 2.2 - 7.1 mg/dL | EXTERNAL | | | | performed at [facility], [address] | | LAB | | | | [address], | | | | | | [place] [address] | | | | + + + + + + + + | Specimen | + + | Blood specimen | | (specimen) | + + + +---------+ + + | Performing | Address | City/State/Zipcode | Phone Number | | Organization | | | | + +---------+ + + | EXTERNAL LAB | | | | + +---------+ + + Ferritin (05/02/2014 3:36 PM PDT) + + + + + + | Component | Value | Ref Range | Performed | Pathologist | | | | | At | Signature | + + + + + + | Ferritin, | 7Comment: Testing | 6 - 170 ng/mL | EXTERNAL | | | External | performed at [facility], [address] | | LAB | | | | [address], | | | | | | [place] [address] | | | | + + + + + + + + | Specimen | + + | Blood specimen | | (specimen) | + + + +---------+ + + | Performing | Address | City/State/Zipcode | Phone Number | | Organization | | | | + +---------+ + + | EXTERNAL LAB | | | | + +---------+ + + POC Glucose (05/02/2014 11:25 AM PDT) + + + + + + | Component | Value | Ref Range | Performed | Pathologist | | | | | At | Signature | + + + + + + | Glucose, | 250 (H)Comment: Testing | 65 - 99 mg/dL | EXTERNAL | | | Fingerstick | performed at [facility];[address] | | LAB | | | [address];[place], [place] | | | | | | [address] | | | | + + + + + + + + | Specimen | + + | | + + + +---------+ + + | Performing | Address | City/State/Zipcode | Phone Number | | Organization | | | | + +---------+ + + | EXTERNAL LAB | | | | + +---------+ + + CK-MB (05/02/2014 8:11 AM PDT) + + + + + -+ | Component | Value | Ref Range | Performed | Pathologist | | | | | At | Signature | + + + + + -+ | CK-MB | 4.3 (H)Comment: Testing | 0.5 - 3.6 ng/mL | EXTERNAL | | | | performed at [facility];[address] | | LAB | | | | [address];[place], [place] | | | | | | [address] | | | | + + + + + -+ | CK-MB Index | 4.3Comment: CK INDEX | | EXTERNAL | | | | INTERPRETATION: | | LAB | | | | MMB ng/mL | | | | | | | | | | | |CK INDEX INTERPRETATION: | | | | | | MMB ng/mL | | | | | | | | | | + + + + + -+ + + | Specimen | + + | Blood specimen | | (specimen) | + + + +---------+ + + | Performing | Address | City/State/Zipcode | Phone Number | | Organization | | | | + +---------+ + + | EXTERNAL LAB | | | | + +---------+ + + Troponin I (05/02/2014 8:11 AM PDT) + + + + + + | Component | Value | Ref Range | Performed | Pathologist | | | | | At | Signature | + + + + + + | Troponin I, | 1.83 ()Comment: 0.00 | 0.00 - 0.10 | EXTERNAL [...] | | | | | | ACUTE CT CALLED TO | | | | | | MARYLOU Arzola ON 4RP AT | | | | | | 0900 BY TRREAD BACK | | | | | | RESULTS VERIFIEDTesting | | | | | | performed at [facility];[address] | | [address];[place], [place] | | | | | | [address] | | | | + + + + + + + + | Specimen | + + | Blood specimen | | (specimen) | + + + +---------+ + + | Performing | Address | City/State/Zipcode | Phone Number | | Organization | | | | + +---------+ + + | EXTERNAL LAB | | | | + +---------+ + + CK Total (05/02/2014 8:11 AM PDT) + + + + + + | Component | Value | Ref Range | Performed | Pathologist | | | | | At | Signature | + + + + + + | CK, Total | 101Comment: Testing | 30 - 240 U/L | EXTERNAL | | | | performed at [facility];[address] | | LAB | | | | [address];[place], [place] | | | | | | [address] | | | | + + + + + + + + | Specimen | + + | Blood specimen | | (specimen) | + + + +---------+ + + | Performing | Address | City/State/Zipcode | Phone Number | | Organization | | | | + +---------+ + + | EXTERNAL LAB | | | | + +---------+ + + PTT (05/02/2014 7:24 AM PDT) + + + + + + | Component | Value | Ref Range | Performed | Pathologist | | | | | At | Signature | + + + + + + | aPTT, | 30Comment: Testing | 23 - 32 seconds | EXTERNAL | | | Patient | performed at [facility];[address] | | LAB | | | | [address];[place] | | | | | | [address] | | | | + + + + + + + + | Specimen | + + | Blood specimen | | (specimen) | + + + +---------+ + + | Performing | Address | City/State/Zipcode | Phone Number | | Organization | | | | + +---------+ + + | EXTERNAL LAB | | | | + +---------+ + + POC Glucose (05/02/2014 5:04 AM PDT) + + + + + + | Component | Value | Ref Range | Performed | Pathologist | | | | | At | Signature | + + + + + + | Glucose, | 112 (H)Comment: Testing | 65 - 99 mg/dL | EXTERNAL | | | Fingerstick | performed at [facility] | | LAB | | | | [address];[place], [place] | | | | | | [address] | | | | + + + + + + + + | Specimen | + + | | + + + +---------+ + + | Performing | Address | City/State/Zipcode | Phone Number | | Organization | | | | + +---------+ + + | EXTERNAL LAB | | | | + +---------+ + + Iron and Iron Binding Capacity (05/02/2014 1:11 AM PDT) + + + + + + | Component | Value | Ref Range | Performed | Pathologist | | | | | At | Signature | + + + + + + | Iron | 18 (L)Comment: Testing | 30 - 180 ug/dL | EXTERNAL | | | | performed at [facility], [address] | | LAB | | | | [address], | | | | | | [place] [address] | | | | + + + + + + | TIBC | 394Comment: Testing | 260 - 490 ug/dL | EXTERNAL | | | | performed at [facility], [address] | | LAB | | | [address], | | | | | | [place] [address] | | | | + + + + + + | Iron | 5 (L)Comment: Testing | 15 - 50 % | EXTERNAL | | | Saturation | performed at [facility], [address] | | LAB | | | | [address], | | | | | | [place] [address] | | | | + + + + + + + + | Specimen | + + | | + + + +---------+ + + | Performing | Address | City/State/Zipcode | Phone Number | | Organization | | | | + +---------+ + + | EXTERNAL LAB | | | | + +---------+ + + PTT (05/02/2014 1:11 AM PDT) + + + + + + | Component | Value | Ref Range | Performed | Pathologist | | | | | At | Signature | + + + + + + | aPTT, | 28Comment: Testing | 23 - 32 seconds | EXTERNAL | | | Patient | performed at [facility];[address] | | LAB | | | | [address];[place], [place] | | | | | | [address] | | | | + + + + + + + + | Specimen | + + | Blood specimen | | (specimen) | + + + +---------+ + + | Performing | Address | City/State/Zipcode | Phone Number | | Organization | | | | + +---------+ + + | EXTERNAL LAB | | | | + +---------+ + + External Lab: CBC (05/02/2014 1:11 AM PDT) + + +---- + + + | Component | Value | Ref Range | Performed | Pathologist | | | | | At | Signature | + + +---- + + + | WBC | 10.1Comment: Testing | 3.8 - 11.0 K/uL | EXTERNAL | | | | performed at [facility], [address] | | LAB | | | | [address], | | | | | | [place] [address] | | | | + + +---- + + + | Non- | 3.16 (L)Comment: Testing | 3.7 0 - 5.10 | EXTERNAL | | | Red Blood | performed at [facility], [address] | M/u L | LAB | | | Cells | [address], | | | | | Counted | [place] [address] | | | | + + +---- + + + | Hemoglobin | 7.5 (L)Comment: Testing | 11. 3 - 15.5 | EXTERNAL | | | | performed at [facility], [address] | g/d L | LAB | | | | [address], | | | | | | [place] [address] | | | | + + +---- + + + | Hematocrit, | 23.8 (L)Comment: Testing | 34. 0 - 46.0 % | EXTERNAL | | | POC | performed at [facility], [address] | | LAB | | | | [address], | | | | | | [place] [address] | | | | + + +---- + + + | MCV | 75.2 (L)Comment: Testing | 80. 0 - 100.0 fl | EXTERNAL | | | | performed at [facility], [address] | | LAB | | | | [address], | | | | | | [place] [address] | | | | + + +---- + + + | MCH | 23.8 (L)Comment: Testing | 27. 0 - 34.0 pg | EXTERNAL | | | | performed at [facility], [address] | | LAB | | | | [address], | | | | | | [place] [address] | | | | + + +---- + + + | MCHC | 31.7 (L)Comment: Testing | 32. 0 - 35.5 | EXTERNAL | | | | performed at [facility], [address] | g/d L | LAB | | | | [address], | | | | | | [place] [address] | | | | + + +---- + + + | RDW-CV | 40.7Comment: Testing | 37 - 53 fl | EXTERNAL | | | | performed at [facility], [address] | | LAB | | | | [address], | | | | | | [place] [address] | | | | + + +---- + + + | Platelet | 238Comment: Testing | 150 - 400 K/uL | EXTERNAL | | | Count | performed at [facility], [address] | | LAB | | | Plasma | [address], | | | | | | [place] [address] | | | | + + +---- + + + | MPV | 9.1Comment: Testing | fl | EXTERNAL | | | | performed at [facility], [address] | | LAB | | | | [address], | | | | | | [place] [address] | | | | + + +---- + + + | Differentia | AUTOMATEDComment: | | EXTERNAL | | | l Type | Testing performed at | | LAB | | | | [facility], [address] | | | | | | [place] | | | | | | [address] | | | | + + +---- + + + | % Segmented | 70.0Comment: Testing | % | EXTERNAL | | | | performed at [facility], [address] | | LAB | | | Neutrophils | [address], | | | | | | [place] [address] | | | | + + +---- + + + | % | 19.1Comment: Testing | % | EXTERNAL | | | Lymphocytes | performed at [facility], [address] | | LAB | | | | [address], | | | | | | [place] [address] | | | | + + +---- + + + | % Monocytes | 7.0Comment: Testing | % | EXTERNAL | | | | performed at [facility], [address] | | LAB | | | | [address], | | | | | | [place] [address] | | | | + + +---- + + + | % | 3.6Comment: Testing | % | EXTERNAL | | | Eosinophils | performed at [facility], [address] | | LAB | | | [address], | | | | | | [place] [address] | | | | + + +---- + + + | % Basophils | 0.3Comment: Testing | % | EXTERNAL | | | | performed at [facility], [address] | | LAB | | | | [address], | | | | | | [place] [address] | | | | + + +---- + + + | Absolute | 7.1Comment: Testing | 1.9 - 7.4 K/uL | EXTERNAL | | | Segmented | performed at [facility], [address] | | LAB | | | Neutrophils | [address], | | | | | | [place] [address] | | | | + + +---- + + + | Absolute | 1.9Comment: Testing | 1.0 - 3.9 K/uL | EXTERNAL | | | Lymphocytes | performed at [facility], [address] | | LAB | | | | [address], | | | | | | [place] [address] | | | | + + +---- + + + | Absolute | 0.7Comment: Testing | 0 - 0.8 K/uL | EXTERNAL | | | Monocytes | performed at [facility], [address] | | LAB | | | | [address], | | | | | | [place] [address] | | | | + + +---- + + + | Absolute | 0.4Comment: Testing | 0 - 0.5 K/uL | EXTERNAL | | | Eosinophils | performed at [facility], [address] | | LAB | | | | [address], | | | | | | [place] [address] | | | | + + +---- + + + | Absolute | 0.0Comment: Testing | 0 - 0.1 K/uL | EXTERNAL | | | Basophils | performed at [facility], [address] | | LAB | | | | [address], | | | | | | [place] [address] | | | | + + +---- + + + | RBC | NORMAL PLT MORPHComment: | | EXTERNAL | | | Morphology | | | LAB | | | | 2+MICRO2+HYPO1+POIKTesti | | | | | | ng performed at [facility], | | | | | | [address], | | | | | | [place] [address] | | | | | |1+ | | | | | |POIK | | | | | |Testing performed at [facility], [address] [place] [address] | | | | | | | | | | + + +---- + + + + + | Specimen | + + | | + + + +---------+ + + | Performing | Address | City/State/Zipcode | Phone Number | | Organization | | | | + +---------+ + + | EXTERNAL LAB | | | | + +---------+ + + Phosphorus (05/02/2014 1:11 AM PDT) + + + + + + | Component | Value | Ref Range | Performed | Pathologist | | | | | At | Signature | + + + + + + | PHOSPHORUS | 4.9 (H)Comment: Testing | 2.3 - 4.8 mg/dL | EXTERNAL | | | | performed at [facility], [address] | | LAB | | | | [address], | | | | | | [place] [address] | | | | + + + + + + + + | Specimen | + + | | + + + +---------+ + + | Performing | Address | City/State/Zipcode | Phone Number | | Organization | | | | + +---------+ + + | EXTERNAL LAB | | | | + +---------+ + + Magnesium (05/02/2014 1:11 AM PDT) + + + + + + | Component | Value | Ref Range | Performed | Pathologist | | | | | At | Signature | + + + + + + | Magnesium | 2.5 (H)Comment: Testing | 1.7 - 2.4 mg/dL | EXTERNAL | | | | performed at [facility], [address] | | LAB | | | | [address], | | | | | | [place] [address] | | | | + + + + + + + + | Specimen | + + | | + + + +---------+ + + | Performing | Address | City/State/Zipcode | Phone Number | | Organization | | | | + +---------+ + + | EXTERNAL LAB | | | | + +---------+ + + Hemoglobin A1C (05/02/2014 1:11 AM PDT) + + + + + + | Component | Value | Ref Range | Performed | Pathologist | | | | | At | Signature | + + + + + + | Hemoglobin | 7.5 (H)Comment: The | 4.0 - 6.0 % | EXTERNAL | | | A1c | [facility] | | LAB | | | | Association considers a | | | | | | hemoglobin A1c result of | | | | | | <7.0% to be the goal of | | | | | | diabetic therapy. | | | | | | When results are | | | | | | consistently >8.0%, the | | | | | | ADA suggests | | | | | [...] | | | | | performed at [facility], [address] | | | | | [address] [facility], | | | | | | [place] [address] | | | | + + + + + + | Glycohemogl | 169Comment: The [facility] | mg/dL | EXTERNAL | [...] | | | | | performed at [facility], [address] | | | | | | [facility], | | | | | | [place] [address] | | | | + + + + + + + + | Specimen | + + | | + + + +---------+ + + | Performing | Address | City/State/Zipcode | Phone Number | | Organization | | | | + +---------+ + + | EXTERNAL LAB | | | | + +---------+ + + Folate (05/02/2014 1:11 AM PDT) + + + + + + | Component | Value | Ref Range | Performed | Pathologist | | | | | At | Signature | + + + + + + | Folate | 15.4Comment: Testing | ng/mL | EXTERNAL | | | | performed at [facility], [address] | | LAB | | | | [address] | | | | | | [place] [address] | | | | + + + + + + + + | Specimen | + + | | + + + +---------+ + + | Performing | Address | City/State/Zipcode | Phone Number | | Organization | | | | + +---------+ + + | EXTERNAL LAB | | | | + +---------+ + + Vitamin B-12 (05/02/2014 1:11 AM PDT) + + + + + + | Component | Value | Ref Range | Performed | Pathologist | | | | | At | Signature | + + + + + + | VITAMIN | 263Comment: Testing | 254 - 1,320 | EXTERNAL | | | B-12 | performed at [facility], [address] | pg/mL | LAB | | | | [address], | | | | | | [place] [address] | | | | + + + + + + + + | Specimen | + + | | + + + +---------+ + + | Performing | Address | City/State/Zipcode | Phone Number | | Organization | | | | + +---------+ + + | EXTERNAL LAB | | | | + +---------+ + + Basic Metabolic Panel (05/02/2014 1:11 AM PDT) + + + + + + | Component | Value | Ref Range | Performed | Pathologist | | | | | At | Signature | + + + + + + | Na | 134 (L)Comment: Testing | 135 - 143 | EXTERNAL | | | | performed at [facility], [address] | mmol/L | LAB | | | | [address], | | | | | | [place] [address] | | | | + + + + + + | K | 5.0 (H)Comment: Testing | 3.5 - 4.9 | EXTERNAL | | | | performed at [facility], [address] | mmol/L | LAB | | | | [address], | | | | | | [place] [address] | | | | + + + + + + | Cl | 108Comment: Testing | 99 - 109 mmol/L | EXTERNAL | | | | performed at [facility], [address] | | LAB | | | | [address], | | | | | | [place] [address] | | | | + + + + + + | CO2 | 20 (L)Comment: Testing | 23 - 32 mmol/L | EXTERNAL | | | | performed at [facility], [address] | | LAB | | | | [address], | | | | | | [place] [address] | | | | + + + + + + | Anion Gap | 11Comment: Testing | 5 - 20 mmol/L | EXTERNAL | | | | performed at [facility], [address] | | LAB | | | | [address], | | | | | | [place] [address] | | | | + + + + + + | Glucose, | 130 (H)Comment: Testing | 65 - 99 mg/dL | EXTERNAL | | | Fasting | performed at [facility], [address] | | LAB | | | | [address], | | | | | | [place] [address] | | | | + + + + + + | BUN | 43 (H)Comment: Testing | 8 - 25 mg/dL | EXTERNAL | | | | performed at [facility], [address] | | LAB | | | | [address], | | | | | | [place] [address] | | | | + + + + + + | Creatinine | 2.30 (H)Comment: Testing | 0.50 - 1.00 | EXTERNAL | | | | performed at [facility], [address] | mg/dL | LAB | | | | [address], | | | | | | [place] [address] | | | | + + + + + + | BUN/Creatin | 19Comment: Testing | | EXTERNAL | | | ine Ratio | performed at [facility], [address] | | LAB | | | | [address], | | | | | | [place] [address] | | | | + + + + + + | Calcium | 8.0 (L)Comment: Testing | 8.5 - 10.2 | EXTERNAL | | | | performed at [facility], [address] | mg/dL | LAB | | | | [address], | | | | | | [place] [address] | | | | + + + + + + | Estimated | 22 (L)Comment: GFR <60: | mL/min/1.73m2 | EXTERNAL [...] | | | | | | [address], | | | | | | [place] [address] | | | | + + + + + + + + | Specimen | + + | | + + + +---------+ + + | Performing | Address | City/State/Zipcode | Phone Number | | Organization | | | | + +---------+ + + | EXTERNAL LAB | | | | + +---------+ + + POC Glucose (05/01/2014 9:39 PM PDT) + + + + + + | Component | Value | Ref Range | Performed | Pathologist | | | | | At | Signature | + + + + + + | Glucose, | 178 (H)Comment: Testing | 65 - 99 mg/dL | EXTERNAL | | | Fingerstick | performed at [facility];[address] | | LAB | | | | [address];[place] | | | | | | [address] | | | | + + + + + + + + | Specimen | + + | | + + + +---------+ + + | Performing | Address | City/State/Zipcode | Phone Number | | Organization | | | | + +---------+ + + | EXTERNAL LAB | | | | + +---------+ + + POC Glucose (05/01/2014 4:05 PM PDT) + + + + + + | Component | Value | Ref Range | Performed | Pathologist | | | | | At | Signature | + + + + + + | Glucose, | 187 (H)Comment: Testing | 65 - 99 mg/dL | EXTERNAL | | | Fingerstick | performed at [facility];[address] | | LAB | | | | [address];[place], [place] | | | | | | [address] | | | | + + + + + + + + | Specimen | + + | | + + + +---------+ + + | Performing | Address | City/State/Zipcode | Phone Number | | Organization | | | | + +---------+ + + | EXTERNAL LAB | | | | + +---------+ + + CK-MB (05/01/2014 3:03 PM PDT) + + + + + -+ | Component | Value | Ref Range | Performed | Pathologist | | | | | At | Signature | + + + + + -+ | CK-MB | 5.4 (H)Comment: Testing | 0.5 - 3.6 ng/mL | EXTERNAL | | | | performed at [facility];[address] | | LAB | | | | [address];[place], [place] | | | | | | [address] | | | | + + + + + -+ | CK-MB Index | 5.6Comment: CK INDEX | | EXTERNAL | | | | INTERPRETATION: | | LAB | | | | MMB ng/mL | | | | | | | | | | | |CK INDEX INTERPRETATION: | | | | | | MMB ng/mL | | | | | | | | | | + + + + + -+ + + | Specimen | + + | | + + + +---------+ + + | Performing | Address | City/State/Zipcode | Phone Number | | Organization | | | | + +---------+ + + | EXTERNAL LAB | | | | + +---------+ + + Troponin I (05/01/2014 3:03 PM PDT) + + + + + + | Component | Value | Ref Range | Performed | Pathologist | | | | | At | Signature | + + + + + + | Troponin I, | 1.65 ()Comment: 0.00 | 0.00 - 0.10 | EXTERNAL [...] | | | | | | ACUTE CT CALLED NURSING | | | | | | [id number] P AT 1545 | | | | | | BNW READ BACK RESULTS | | | | | | VERIFIEDTesting | | | | | | performed at [facility];[address];[place], [place] | | | | | | [address] | | | | + + + + + + + + | Specimen | + + | Blood specimen | | (specimen) | + + + +---------+ + + | Performing | Address | City/State/Zipcode | Phone Number | | Organization | | | | + +---------+ + + | EXTERNAL LAB | | | | + +---------+ + + CK Total (05/01/2014 3:03 PM PDT) + + + + + + | Component | Value | Ref Range | Performed | Pathologist | | | | | At | Signature | + + + + + + | CK, Total | 97Comment: Testing | 30 - 240 U/L | EXTERNAL | | | | performed at [facility];[address] | | LAB | | | | [address];[place] | | | | | | [address] | | | | + + + + + + + + | Specimen | + + | Blood specimen | | (specimen) | + + + +---------+ + + | Performing | Address | City/State/Zipcode | Phone Number | | Organization | | | | + +---------+ + + | EXTERNAL LAB | | | | + +---------+ + + ECHO Complete (05/01/2014 2:42 PM PDT) + + | Specimen | + + | | + + + + + | Impressions | Performed At | + + + | 1. Overall left ventricular systolic function is moderately impaired | | | with, an EF between 30 - 40 %. 2. The left ventricle is markedly | | | dilated. 3. mid anteroseptal - akinetic; 4. apex - akinetic; 5. The | | | left atrium is mildly dilated. 6. There is cbop-sw-gxmyzlpe aortic | | | regurgitation. 7. Zyee-na-qxaqdncn mitral regurgitation is present. | | | 8. There is moderate pulmonary hypertension. 9. The right ventricular | | | systolic pressure (pulmonary artery systolic pressure), as measured | | | by Doppler, is 62.61mmHg. 10. There is a small pericardial effusion | | | is located near the right ventricle. 11. There is no evidence of | | | cardiac tamponade. | | + + + + + + | Narrative | Performed At | + + + | Patient Name: ALEXSANDRA HAWKINS Date of : 1930 | | | Performing Physician: Christiano Guzman MD | | | | | | INDICATIONS CHF CONCLUSIONS 1. Overall | | | left ventricular systolic function is moderately impaired with, an EF | | | between 30 - 40 %. 2. The left ventricle is markedly dilated. 3. | | | mid anteroseptal - akinetic; 4. apex - akinetic; 5. The left atrium | | | is mildly dilated. 6. There is ryjs-vq-zgwuwwkg aortic regurgitation. | | | 7. Qtfi-bc-wpexpnhv mitral regurgitation is present. 8. There is | | | moderate pulmonary hypertension. 9. The right ventricular systolic | | | pressure (pulmonary artery systolic pressure), as measured by Doppler, | | | is 62.61mmHg. 10. There is a small pericardial effusion is located | | | near the right ventricle. 11. There is no evidence of cardiac | | | tamponade. FINDINGS -------- ECG rhythm: Sinus rhythm with extra | | | systolic beats. Study: A 2-dimensional transthoracic echocardiogram | | | with m-mode, spectral and color flow Doppler was perfomed. Study: | | | This was a technically adequate study. Left Ventricle: Overall left | | | ventricular systolic function is moderately impaired with, an EF | | | between 30 - 40 %. Left Ventricle: The left ventricle is markedly | | | dilated. Left Ventricle: Left ventricular wall thickness is normal. | | | Left Ventricle: mid anteroseptal - akinetic; Left Ventricle: apex - | | | akinetic; Right Ventricle: The right ventricle is normal in size. | | | Left Atrium: The left atrium is mildly dilated. Right Atrium: The | | | right atrial size is normal. Aortic Valve: The aortic valve was not | | | well visualized. Aortic Valve: The aortic valve is mildly calcified. | | | Aortic Valve: There is uibd-kv-gihbjeex aortic regurgitation. Aortic | | | Valve: There is no evidence of significant aortic stenosis. Mitral | | | Valve: The mitral valve is normal. Mitral Valve: Nwee-dd-rjezzlqz | | | mitral regurgitation is present. Mitral Valve: Moderate mitral | | | annular calcification present. Mitral Valve: Mild thickening of the | | | anterior mitral valve leaflet. Mitral Valve: There is mild thickening | | | of the posterior mitral valve leaflet. Tricuspid Valve: The | | | tricuspid valve appears structurally normal. Tricuspid Valve: | | | Jcvu-zw-uainfxzb tricuspid regurgitation present. Tricuspid Valve: | | | There is moderate pulmonary hypertension. Tricuspid Valve: The right | | | ventricular systolic pressure (pulmonary artery systolic pressure), as | | | measured by Doppler, is 62.61mmHg. Pulmonic Valve: The pulmonic | | | valve was not well visualized. Pericardium: There is a small | | | pericardial effusion is located near the right ventricle. | | | Pericardium: There is no evidence of cardiac tamponade. IVC/Hepatic | | | Veins: The IVC is normal size (1.5-2.5cm) and collapses <50% with | | | sniff, consistent with central venous pressures of 10-15mmHg. | | | MEASUREMENTS IVC: 2.09 cm LA Major: 5.82 cm | | | LVOT Diam: 1.79 cm RA Major: 4.51 cm RVIDd: 3.11 cm LVEF | | | MOD A4C: 23.06 % SV MOD A4C: 24.01 ml LVEDV MOD A4C: 104.12 | | | ml LVLd A4C: 8.32 cm LVESV MOD A4C: 80.11 ml LVLs A4C: | | | 7.57 cm LAEDV(A-L): 71.18 ml LAEDV Index (A-L): 48.42 ml/m2 | | | LAAd A2C: 18.54 cm2 LAEDV A-L A2C: 58.33 ml LAEDV MOD A2C: | | | 55.18 ml LALd A2C: 5.00 cm LAAd A4C: 22.63 cm2 LAEDV A-L A4C: | | | 72.64 ml LAEDV MOD A4C: 66.83 ml LALd A4C: 5.98 cm MR | | | Flow: 105.73 ml/s MR Rad: 0.66 cm MR Als.Mc: 0.37 m/s Ao | | | Diam: 3.13 cm AV Cusp: 1.51 cm LA Diam: 3.87 cm LA/Ao: | | | 1.23 %FS: 25.64 % EDV(Teich): 231.10 ml EF(Teich): 49.31 % | | | ESV(Teich): 117.12 ml IVSd: 0.68 cm IVSs: 0.92 cm LVIDd: | | | 6.69 cm LVIDs: 4.97 cm LVPWd: 0.92 cm LVPWs: 1.37 cm | | | SV(Teich): 113.97 ml D-E Excursion: 1.44 cm E-F [place]: 0.05 | | | m/s EPSS: 1.21 cm AR Dec [place]: 1.60 m/s2 AR Dec Time: | | | 1757.97 ms AR maxP.96 mmHg AR PHT: 509.81 ms AR Vmax: | | | 2.82 m/s HR: 66.94 BPM AR maxP.20 mmHg AR meanPG: | | | 18.96 mmHg AR Vmax: 2.55 m/s AR Vmean: 2.15 m/s AR VTI: | | | 129.70 cm ARend P.29 mmHg ARend Vmax: 2.11 m/s HR: | | | 96.87 BPM AV maxP.97 mmHg AV meanP.13 mmHg AV Vmax: | | | 1.22 m/s AV Vmean: 0.83 m/s AV VTI: 23.32 cm SANDOVAL Vmax: | | | 1.90 cm2 SANDOVAL (VTI): 1.87 cm2 LVCI Dopp: 2.90 l/minm2 LVCO | | | Dopp: 4.27 l/min HR: 97.96 BPM LVOT maxP.38 mmHg LVOT | | | meanP.00 mmHg LVSI Dopp: 29.68 ml/m2 LVSV Dopp: 43.64 | | | ml LVOT Vmax: 0.92 m/s LVOT Vmean: 0.67 m/s LVOT VTI: | | | 17.27 cm MCO: 321.79 ms MR maxP.39 mmHg MR meanPG: | | | 30.15 mmHg MR Vmax: 3.29 m/s MR Vmean: 2.56 m/s MR VTI: | | | 73.68 cm MR maxP.16 mmHg MR Vmax: 3.94 m/s MV A Mc: | | | 1.23 m/s MV DecT: 147.26 ms MV E Mc: 0.73 m/s MV E/A Ratio: | | | 0.59 MV PHT: 43.08 ms MVA By PHT: 5.10 cm2 MV A Dur: | | | 89.96 ms Septal e': 0.03 m/s Septal E/e': 21.69 Lateral e': | | | 0.03 m/s Lateral E/e': 19.47 MR ERO: 0.25 cm2 MR RV: | | | 28.74 ml MR Vmax: 4.18 m/s MR VTI: 113.69 cm P Vein A: | | | 0.35 m/s P Vein A Dur: 134.94 ms P Vein D: 0.34 m/s P Vein | | | S/D Ratio: 1.82 P Vein S: 0.62 m/s HR: 99.65 BPM PV maxPG: | | | 2.89 mmHg PV meanP.75 mmHg PV Vmax: 0.85 m/s PV | | | Vmean: 0.62 m/s PV VTI: 14.43 cm RAP: 15 mmHg RVSP: | | | 62.60 mmHg TR maxP.60 mmHg TR Vmax: 3.44 m/s TV A Mc: | | | 0.93 m/s TV Dec [place]: 4.08 m/s2 TV Dec Time: 135.12 ms TV | | | E Mc: 0.55 m/s TV E/A Ratio: 0.58 Cardiac Exercise Physiologist: LOLY | | | Authenticated by: Christiano Guzman MD Report Date/Time: 05-01-2014 | | | 16:13:14 | | + + + + + | Procedure Note | + + | Mateus Young Conversion - 06/16/2019 4:04 PM PDT Patient Name: Latrell HAWKINS of | | : 1930 Performing Physician: Christiano Guzman | | MD INDICATIONS C | | HF CONCLUSIONS 1. Overall left ventricular systolic function is moderately | | impaired with, an EF between 30 - 40 %.2. The left ventricle is markedly dilated.3. mid | | anteroseptal - akinetic;4. apex - akinetic;5. The left atrium is mildly dilated.6. There | | is icds-lz-zwwsilkl aortic regurgitation.7. Cotl-ox-pwxslyrt mitral regurgitation is | | present.8. There is moderate pulmonary hypertension.9. The right ventricular systolic | | pressure (pulmonary artery systolic pressure), as measured by Doppler, is 62.61mmHg.10. | | There is a small pericardial effusion is located near the right ventricle.11. There is | | no evidence of cardiac tamponade. FINDINGS--------ECG rhythm: Sinus rhythm with extra | | systolic beats.Study: A 2-dimensional transthoracic echocardiogram with m-mode, spectral | | and color flow Doppler was perfomed.Study: This was a technically adequate study.Left | | Ventricle: Overall left ventricular systolic function is moderately impaired with, an EF | | between 30 - 40 %.Left Ventricle: The left ventricle is markedly dilated.Left | | Ventricle: Left ventricular wall thickness is normal.Left Ventricle: mid anteroseptal - | | akinetic;Left Ventricle: apex - akinetic;Right Ventricle: The right ventricle is normal | | in size.Left Atrium: The left atrium is mildly dilated.Right Atrium: The right atrial | | size is normal.Aortic Valve: The aortic valve was not well visualized.Aortic Valve: The | | aortic valve is mildly calcified.Aortic Valve: There is ibel-fq-vctfnoup aortic | | regurgitation.Aortic Valve: There is no evidence of significant aortic stenosis.Mitral | | Valve: The mitral valve is normal.Mitral Valve: Pckv-ha-kjebcgcq mitral regurgitation is | | present.Mitral Valve: Moderate mitral annular calcification present.Mitral Valve: Mild | | thickening of the anterior mitral valve leaflet.Mitral Valve: There is mild thickening | | of the posterior mitral valve leaflet.Tricuspid Valve: The tricuspid valve appears | | structurally normal.Tricuspid Valve: Jpau-oc-qvjfahdx tricuspid regurgitation | | present.Tricuspid Valve: There is moderate pulmonary hypertension.Tricuspid Valve: The | | right ventricular systolic pressure (pulmonary artery systolic pressure), as measured by | | Doppler, is 62.61mmHg.Pulmonic Valve: The pulmonic valve was not well | | visualized.Pericardium: There is a small pericardial effusion is located near the right | | ventricle.Pericardium: There is no evidence of cardiac tamponade.IVC/Hepatic Veins: The | | IVC is normal size (1.5-2.5cm) and collapses <50% with sniff, consistent with central | | venous pressures of 10-15mmHg. MEASUREMENTS IVC: 2.09 cmLA Major: 5.82 | | cmLVOT Diam: 1.79 cmRA Major: 4.51 cmRVIDd: 3.11 cmLVEF MOD A4C: 23.06 %SV MOD | | A4C: 24.01 mlLVEDV MOD A4C: 104.12 mlLVLd A4C: 8.32 cmLVESV MOD A4C: 80.11 | | mlLVLs A4C: 7.57 cmLAEDV(A-L): 71.18 mlLAEDV Index (A-L): 48.42 ml/m2LAAd A2C: | | 18.54 [id number] A-L A2C: 58.33 mlLAEDV MOD A2C: 55.18 mlLALd A2C: 5.00 cmLAAd A4C: | | 22.63 [id number] A-L A4C: 72.64 mlLAEDV MOD A4C: 66.83 mlLALd A4C: 5.98 cmMR Flow: | | 105.73 ml/sMR Rad: 0.66 cmMR Als.Mc: 0.37 m/Nick Diam: 3.13 cmAV Cusp: 1.51 | | cmLA Diam: 3.87 cmLA/Ao: 1.23%FS: 25.64 %EDV(Teich): 231.10 mlEF(Teich): 49.31 | | %ESV(Teich): 117.12 mlIVSd: 0.68 cmIVSs: 0.92 cmLVIDd: 6.69 cmLVIDs: 4.97 | | cmLVPWd: 0.92 cmLVPWs: 1.37 cmSV(Teich): 113.97 mlD-E Excursion: 1.44 cmE-F | | [place]: 0.05 m/sEPSS: 1.21 cmAR Dec [place]: 1.60 m/s2AR Dec Time: 1757.97 msAR | | maxP.96 mmHgAR PHT: 509.81 msAR Vmax: 2.82 m/sHR: 66.94 BPMAR maxPG: | | 26.20 mmHgAR meanP.96 mmHgAR Vmax: 2.55 m/Loretta Vmean: 2.15 m/Loretta VTI: 129.70 | | cmARend P.29 mmHgARend Vmax: 2.11 m/sHR: 96.87 BPMAV maxP.97 mmHgAV | | meanP.13 mmHgAV Vmax: 1.22 m/Claudia Vmean: 0.83 m/Claudia VTI: 23.32 cmAVA Vmax: | | 1.90 cm2AVA (VTI): 1.87 [id number] Dopp: 2.90 l/utfc4WRSQ Dopp: 4.27 l/minHR: 97.96 | | BPMLVOT maxP.38 mmHgLVOT meanP.00 mmHgLVSI Dopp: 29.68 ml/m2LVSV Dopp: | | 43.64 mlLVOT Vmax: 0.92 m/sLVOT Vmean: 0.67 m/sLVOT VTI: 17.27 cmMCO: 321.79 | | msMR maxP.39 mmHgMR meanP.15 mmHgMR Vmax: 3.29 m/sMR Vmean: 2.56 m/sMR | | VTI: 73.68 cmMR maxP.16 mmHgMR Vmax: 3.94 m/sMV A Mc: 1.23 m/sMV DecT: | | 147.26 msMV E Mc: 0.73 m/sMV E/A Ratio: 0.59MV PHT: 43.08 msMVA By PHT: 5.10 | | cm2MV A Dur: 89.96 msSeptal e': 0.03 m/sSeptal E/e': 21.69Lateral e': 0.03 | | m/sLateral E/e': 19.47MR ERO: 0.25 cm2MR RV: 28.74 mlMR Vmax: 4.18 m/sMR VTI: | | 113.69 cmP Vein A: 0.35 m/sP Vein A Dur: 134.94 msP Vein D: 0.34 m/sP Vein S/D | | Ratio: 1.82P Vein S: 0.62 m/sHR: 99.65 BPMPV maxP.89 mmHgPV meanP.75 | | mmHgPV Vmax: 0.85 m/sPV Vmean: 0.62 m/sPV VTI: 14.43 cmRAP: 15 mmHgRVSP: 62.60 | | mmHgTR maxP.60 mmHgTR Vmax: 3.44 m/sTV A Mc: 0.93 m/sTV Dec [place]: 4.08 | | m/s2TV Dec Time: 135.12 msTV E Mc: 0.55 m/sTV E/A Ratio: 0.58 Cardiac Exercise Physiologist: | | MIKAuthenticated by: Christiano Guzman [facility] Date/Time: 05-01-2014 16:13:14 IMPRESSION: 1. | | Overall left ventricular systolic function is moderately impaired with, an EF between | | 30 - 40 %.2. The left ventricle is markedly dilated.3. mid anteroseptal - akinetic;4. | | apex - akinetic;5. The left atrium is mildly dilated.6. There is atkj-ta-tsawxqgg aortic | | regurgitation.7. Jghn-xw-iqepnvit mitral regurgitation is present.8. There is moderate | | pulmonary hypertension.9. The right ventricular systolic pressure (pulmonary artery | | systolic pressure), as measured by Doppler, is 62.61mmHg.10. There is a small | | pericardial effusion is located near the right ventricle.11. There is no evidence of | | cardiac tamponade. | |LVLs A4C: 7.57 cm | |LAEDV(A-L): 71.18 ml | |LAEDV Index (A-L): 48.42 ml/m2 | |LAAd A2C: 18.54 cm2 | |LAEDV A-L A2C: 58.33 ml | |LAEDV MOD A2C: 55.18 ml | |LALd A2C: 5.00 cm | |LAAd A4C: 22.63 cm2 | |LAEDV A-L A4C: 72.64 ml | |LAEDV MOD A4C: 66.83 ml | |LALd A4C: 5.98 cm | |MR Flow: 105.73 ml/s | |MR Rad: 0.66 cm | |MR Als.Mc: 0.37 m/s | |Ao Diam: 3.13 cm | |AV Cusp: 1.51 cm | |LA Diam: 3.87 cm | |LA/Ao: 1.23 | |%FS: 25.64 % | |EDV(Teich): 231.10 ml | |EF(Teich): 49.31 % | |ESV(Teich): 117.12 ml | |IVSd: 0.68 cm | |IVSs: 0.92 cm | |LVIDd: 6.69 cm | |LVIDs: 4.97 cm | |LVPWd: 0.92 cm | |LVPWs: 1.37 cm | |SV(Teich): 113.97 ml | |D-E Excursion: 1.44 cm | |E-F [place]: 0.05 m/s | |EPSS: 1.21 cm | |AR Dec [place]: 1.60 m/s2 | |AR Dec Time: 1757.97 ms | |AR maxP.96 mmHg | |AR PHT: 509.81 ms | |AR Vmax: 2.82 m/s | |HR: 66.94 BPM | |AR maxP.20 mmHg | |AR meanP.96 mmHg | |AR Vmax: 2.55 m/s | |AR Vmean: 2.15 m/s | |AR VTI: 129.70 cm | |ARend P.29 mmHg | |ARend Vmax: 2.11 m/s | |HR: 96.87 BPM | |AV maxP.97 mmHg | |AV meanP.13 mmHg | |AV Vmax: 1.22 m/s | |AV Vmean: 0.83 m/s | |AV VTI: 23.32 cm | |SANDOVAL Vmax: 1.90 cm2 | |SANDOVAL (VTI): 1.87 cm2 | |LVCI Dopp: 2.90 l/minm2 | |LVCO Dopp: 4.27 l/min | |HR: 97.96 BPM | |LVOT maxP.38 mmHg | |LVOT meanP.00 mmHg | |LVSI Dopp: 29.68 ml/m2 | |LVSV Dopp: 43.64 ml | |LVOT Vmax: 0.92 m/s | |LVOT Vmean: 0.67 m/s | |LVOT VTI: 17.27 cm | |MCO: 321.79 ms | |MR maxP.39 mmHg | |MR meanP.15 mmHg | |MR Vmax: 3.29 m/s | |MR Vmean: 2.56 m/s | |MR VTI: 73.68 cm | |MR maxP.16 mmHg | |MR Vmax: 3.94 m/s | |MV A Cm: 1.23 m/s | |MV DecT: 147.26 ms | |MV E Mc: 0.73 m/s | |MV E/A Ratio: 0.59 | |MV PHT: 43.08 ms | |MVA By PHT: 5.10 cm2 | |MV A Dur: 89.96 ms | |Septal e': 0.03 m/s | |Septal E/e': 21.69 | |Lateral e': 0.03 m/s | |Lateral E/e': 19.47 | |MR ERO: 0.25 cm2 | |MR RV: 28.74 ml | |MR Vmax: 4.18 m/s | |MR VTI: 113.69 cm | |P Vein A: 0.35 m/s | |P Vein A Dur: 134.94 ms | |P Vein D: 0.34 m/s | |P Vein S/D Ratio: 1.82 | |P Vein S: 0.62 m/s | |HR: 99.65 BPM | |PV maxP.89 mmHg | |PV meanP.75 mmHg | |PV Vmax: 0.85 m/s | |PV Vmean: 0.62 m/s | |PV VTI: 14.43 cm | |RAP: 15 mmHg | |RVSP: 62.60 mmHg | |TR maxP.60 mmHg | |TR Vmax: 3.44 m/s | |TV A Mc: 0.93 m/s | |TV Dec [place]: 4.08 m/s2 | |TV Dec Time: 135.12 ms | |TV E Mc: 0.55 m/s | |TV E/A Ratio: 0.58 | | | |Cardiac Exercise Physiologist: LOLY | |Authenticated by: Christiano Guzman MD | |Report Date/Time: 05-01-2014 16:13:14 | | | |IMPRESSION: | |1. Overall left ventricular systolic function is moderately impaired with, an EF between 30 - 40 %. | |2. The left ventricle is markedly dilated. | |3. mid anteroseptal - akinetic; | |4. apex - akinetic; | |5. The left atrium is mildly dilated. | |6. There is sftq-fl-jvrtznsy aortic regurgitation. | |7. Xhrl-ec-yjlfgxzg mitral regurgitation is present. | |8. There is moderate pulmonary hypertension. | |9. The right ventricular systolic pressure (pulmonary artery systolic pressure), as measure d by Doppler, is 62.61mmHg. | |10. There is a small pericardial effusion is located near the right ventricle. | |11. There is no evidence of cardiac tamponade. | + + XR Chest 2 Vws (05/01/2014 11:56 AM PDT) + + | Specimen | + + | | + + + + + | Impressions | Performed At | + + + | 1. Imaging findings concerning for pulmonary edema. | | | | | + + + + + + | Narrative | Performed At | + + + | [facility] 1930 83 years Female XR CHEST 2 VIEW | | | FRONTAL AND LATERAL 05/01/2014 11:56 AM INDICATION: Shortness of | | | breath COMPARISON: None. TECHNIQUE: Two view chest, PA and | | | lateral views FINDINGS: There is moderate enlargement of the | | | cardiac silhouette. There is no widening or shift of the mediastinum. | | | There is no pneumothorax. The costophrenic angle is blunted | | | bilaterally suggestive of some pleural fluid. Moderate degenerative | | | disc disease and osteopenia is present with several chronic | | | appearing wedge deformities throughout the thoracic and lumbar spine. | | | The vasculature is mildly distended with slightly increased hazy | | | reticular markings throughout the lung. | | + + + + + | Procedure Note | + + | Hector, Rad Conversion - 06/16/2019 4:04 PM DE[id number] years | | FemaleXR CHEST 2 VIEW FRONTAL AND LATERAL05/01/2014 11:56 AM INDICATION: Shortness of | | breath COMPARISON: None. TECHNIQUE: Two view chest, PA and lateral views FINDINGS: There | | is moderate enlargement of the cardiac silhouette. There is no widening or shift of the | | mediastinum. There is no pneumothorax. The costophrenic angle is blunted bilaterally | | suggestive of some pleural fluid. Moderate degenerative disc disease and osteopenia is | | present with several chronic appearing wedge deformities throughout the thoracic and | | lumbar spine. The vasculature is mildly distended with slightly increased hazy reticular | | markings throughout the lung. IMPRESSION: 1. Imaging findings concerning for pulmonary | | edema. | |TECHNIQUE: Two view chest, PA and lateral views | | | |FINDINGS: There is moderate enlargement of the cardiac silhouette. There is no widening or shift of the mediastinum. There is no pneumothorax. The costophrenic angle is blunted bilate rally suggestive of some pleural fluid. Moderate degenerative disc | |disease and osteopenia is present with several chronic appearing wedge deformities througho ut the thoracic and lumbar spine. The vasculature is mildly distended with slightly increase d hazy reticular markings throughout the lung. | | | |IMPRESSION: | |1. Imaging findings concerning for pulmonary edema. | | | | | + + HISTORICAL LAB PANEL RESULT (05/01/2014 10:10 AM PDT) + + + + + + | Component | Value | Ref Range | Performed | Pathologist | | | | | At | Signature | + + + + + + | WBC | 10.5Comment: Testing | 3.8 - 11.0 K/uL | EXTERNAL | | | | performed at [facility];[address] | | LAB | | | | [address];[place] | | | | | | [address] | | | | + + + + + + | Non- | 3.48 (L)Comment: Testing | 3.70 - 5.10 | EXTERNAL | | | Red Blood | performed at [facility];888 | M/uL | LAB | | | Cells | [address];[place] | | | | | Counted | [address] | | | | + + + + + + | Hemoglobin | 8.6 (L)Comment: Testing | 11.3 - 15.5 | EXTERNAL | | | | performed at [facility];888 | g/dL | LAB | | | | [address];[place] | | | | | | [address] | | | | + + + + + + | Hematocrit, | 25.8 (L)Comment: Testing | 34.0 - 46.0 % | EXTERNAL | | | POC | performed at [facility];[address] | | LAB | | | | [address];[place] | | | | | | [address] | | | | + + + + + + | MCV | 74.1 (L)Comment: Testing | 80.0 - 100.0 fl | EXTERNAL | | | | performed at [facility];[address] | | LAB | | | | [address];[place] | | | | | | [address] | | | | + + + + + + | MCH | 24.6 (L)Comment: Testing | 27.0 - 34.0 pg | EXTERNAL | | | | performed at [facility];[address] | | LAB | | | | [address];[place] | | | | | | [address] | | | | + + + + + + | MCHC | 33.2Comment: Testing | 32.0 - 35.5 | EXTERNAL | | | | performed at [facility];888 | g/dL | LAB | | | | [address];[place] | | | | | | [address] | | | | + + + + + + | RDW-CV | 42.4Comment: Testing | 37 - 53 fl | EXTERNAL | | | | performed at [facility];[address] | | LAB | | | | [address];[place] | | | | | | [address] | | | | + + + + + + | Platelet | 299Comment: Testing | 150 - 400 K/uL | EXTERNAL | | | Count | performed at [facility];[address] | | LAB | | | Plasma | [address];[place] | | | | | | [address] | | | | + + + + + + | MPV | 8.5Comment: Testing | fl | EXTERNAL | | | | performed at [facility];[address] | | LAB | | | | [address];[place] | | | | | | [address] | | | | + + + + + + | Platelet | ADEQUATEComment: Testing | | EXTERNAL | | | Estimate | performed at [facility];[address] | | LAB | | | | [address];[place] | | | | | | [address] | | | | + + + + + + | Differentia | SLIDE SCANNED, AGREES | | EXTERNAL | | | l Comments | WITH AUTOMATED | | LAB | | | | RESULTS.Comment: Testing | | | | | | performed at [facility];[address] | | | | | | [address];[place] | | | | | | [address] | | | | + + + + + + | RBC | 1+Comment: | | EXTERNAL | | | Morphology | ANISO1+MICRO2+HYPONORMAL | | LAB | | | | PLT MORPHTesting | | | | | | performed at [facility];[address] | | | | | | [address];[place] | | | | | | [address] | | | | | |HYPO | | | | | |NORMAL PLT MORPH | | | | | |Testing performed at [facility];[address];[place] [address] | | | | | | | | | | + + + + + + | Differentia | AUTOMATEDComment: | | EXTERNAL | | | l Type | Testing performed at | | LAB | | | | [facility];[address] [facility] | | | | | | Blvd;[place] [address] | | | | + + + + + + | % Segmented | 87.7Comment: Testing | % | EXTERNAL | | | | performed at [facility];[address] | | LAB | | | Neutrophils | [address];[place] | | | | | | [address] | | | | + + + + + + | % | 8.6Comment: Testing | % | EXTERNAL | | | Lymphocytes | performed at [facility];[address] | | LAB | | | | [address];[place] | | | | | | [address] | | | | + + + + + + | % Monocytes | 3.5Comment: Testing | % | EXTERNAL | | | | performed at [facility];[address] | | LAB | | | | [address];[place] | | | | | | [address] | | | | + + + + + + | % | 0.1Comment: Testing | % | EXTERNAL | | | Eosinophils | performed at [facility];[address] | | LAB | | | | [address];[place] | | | | | | [address] | | | | + + + + + + | % Basophils | 0.1Comment: Testing | % | EXTERNAL | | | | performed at [facility];[address] | | LAB | | | | [address];[place] | | | | | | [address] | | | | + + + + + + | Absolute | 9.2 (H)Comment: Testing | 1.9 - 7.4 K/uL | EXTERNAL | | | Segmented | performed at [facility];[address] | | LAB | | | Neutrophils | [address];[place] | | | | | | [address] | | | | + + + + + + | Absolute | 0.9 (L)Comment: Testing | 1.0 - 3.9 K/uL | EXTERNAL | | | Lymphocytes | performed at [facility];[address] | | LAB | | | | [address];[place] | | | | | | [address] | | | | + + + + + + | Absolute | 0.4Comment: Testing | 0 - 0.8 K/uL | EXTERNAL | | | Monocytes | performed at [facility];[address] | | LAB | | | | [address];[place] | | | | | | [address] | | | | + + + + + + | Absolute | 0.0Comment: Testing | 0 - 0.5 K/uL | EXTERNAL | | | Eosinophils | performed at [facility];[address] | | LAB | | | | [address];[place] | | | | | | [address] | | | | + + + + + + | Absolute | 0.0Comment: Testing | 0 - 0.1 K/uL | EXTERNAL | | | Basophils | performed at [facility];[address] | | LAB | | | | [address];[place] | | | | | | [address] | | | | + + + + + + | Na | 140Comment: Testing | 135 - 143 | EXTERNAL | | | | performed at [facility];[address] | mmol/L | LAB | | | | [address];[place] | | | | | | [address] | | | | + + + + + + | K | 4.5Comment: Testing | 3.5 - 4.9 | EXTERNAL | | | | performed at [facility];[address] | mmol/L | LAB | | | | [address];[place] | | | | | | [address] | | | | + + + + + + | Cl | 111 (H)Comment: Testing | 99 - 109 mmol/L | EXTERNAL | | | | performed at [facility];[address] | | LAB | | | | [address];[place] | | | | | | [address] | | | | + + + + + + | CO2 | 18 (L)Comment: Testing | 23 - 32 mmol/L | EXTERNAL | | | | performed at [facility];[address] | | LAB | | | | [address];[place] | | | | | | [address] | | | | + + + + + + | Anion Gap | 15Comment: Testing | 5 - 20 mmol/L | EXTERNAL | | | | performed at [facility];[address] | | LAB | | | | [address];[place] | | | | | | [address] | | | | + + + + + + | Glucose, | 222 (H)Comment: Testing | 65 - 99 mg/dL | EXTERNAL | | | Fasting | performed at [facility];[address] | | LAB | | | | [address];[place] | | | | | | [address] | | | | + + + + + + | BUN | 37 (H)Comment: Testing | 8 - 25 mg/dL | EXTERNAL | | | | performed at [facility];[address] | | LAB | | | | [address];[place] | | | | | | [address] | | | | + + + + + + | Creatinine | 2.05 (H)Comment: Testing | 0.50 - 1.00 | EXTERNAL | | | | performed at [facility];[address] | mg/dL | LAB | | | | [address];[place] | | | | | | [address] | | | | + + + + + + | BUN/Creatin | 18Comment: Testing | | EXTERNAL | | | ine Ratio | performed at [facility];[address] | | LAB | | | | [address];[place] | | | | | | [address] | | | | + + + + + + | Calcium | 7.7 (L)Comment: Testing | 8.5 - 10.2 | EXTERNAL | | | | performed at [facility];888 | mg/dL | LAB | | | | [address];[place] | | | | | | [address] | | | | + + + + + + | Protein, | 7.1Comment: Testing | 6.3 - 8.2 g/dL | EXTERNAL | | | Total | performed at [facility];[address] | | LAB | | | | [address];[place] | | | | | | [address] | | | | + + + + + + | Albumin | 3.4Comment: Testing | 3.3 - 4.8 g/dL | EXTERNAL | | | | performed at [facility];[address] | | LAB | | | | [address];[place] | | | | | | [address] | | | | + + + + + + | Globulin | 3.6Comment: Testing | 1.3 - 4.9 g/dL | EXTERNAL | | | | performed at [facility];[address] | | LAB | | | | [address];[place] | | | | | | [address] | | | | + + + + + + | A/G Ratio | 0.9 (L)Comment: Testing | 1.0 - 2.4 | EXTERNAL | | | | performed at [facility];[address] | | LAB | | | | [address];[place] | | | | | | [address] | | | | + + + + + + | Bilirubin | 0.3Comment: Testing | 0.1 - 1.5 mg/dL | EXTERNAL | | | Total | performed at [facility];[address] | | LAB | | | | [address];[place] | | | | | | [address] | | | | + + + + + + | ALP, | 126 (H)Comment: Testing | 35 - 115 U/L | EXTERNAL | | | External | performed at [facility];[address] | | LAB | | | | [address];[place] | | | | | | [address] | | | | + + + + + + | AST | 10Comment: Testing | 10 - 45 U/L | EXTERNAL | | | | performed at [facility];[address] | | LAB | | | | [address];[place] | | | | | | [address] | | | | + + + + + + | ALT | 14Comment: Testing | 10 - 65 U/L | EXTERNAL | | | | performed at [facility];[address] | | LAB | | | | [address];[place] | | | | | | [address] | | | | + + + [...] | | | | | | at [facility];[address] | | | | | [address];[place] [address] | | | | + + + + + + | CK, Total | 96Comment: Testing | 30 - 240 U/L | EXTERNAL | | | | performed at [facility];[address] | | LAB | | | | [address];[place] | | | | | | [address] | | | | + + + [...] | | | | | performed at [facility];[address] | | | | | | [address];[place] | | | | | | [address] | | | | + + + + + + | aPTT, | 24Comment: Testing | 23 - 32 seconds | EXTERNAL | | | Patient | performed at [facility];[address] | | LAB | | | | [address];[place] | | | | | | [address] | | | | + + + + + + | CK-MB | 5.0 (H)Comment: Testing | 0.5 - 3.6 ng/mL | EXTERNAL | | | | performed at [facility];[address] | | LAB | | | | [address];[place] | | | | | | [address] | | | | + + + + + + | CK-MB Index | 5.2Comment: CK INDEX | | EXTERNAL | | | | INTERPRETATION: | | LAB | | | | MMB ng/mL | | | | | | | | | | | |CK INDEX INTERPRETATION: | | | | | | MMB ng/mL | | | | | | | [...] + +---------+ + + ECG 12 lead (05/01/2014 9:46 AM PDT) + + + + + + | Component | Value | Ref Range | Performed | Pathologist | | | | | At | Signature | + + + + + + | DIAGNOSIS: | Sinus tachycardia with | | EXTERNAL | | | | occasional Premature | | LAB | | | | ventricular | | | | | | complexesPossible | | | | | | Anterior infarct , age | | | | | | undeterminedAbnormal | | | | | | ECGNo previous ECGs | | | | | | availableThis ECG | | | | | | contains Unconfirmed | | | | | | Interpretation | | | | | | Statements. See ED | | | | | | Record for Physician | | | | | | Interpretation. | | | | | | Confirmed by MUSE READ | | | | | | ONLY, -COMPUTER ([id number]), | | | | | | make up editor HUI QUINONEZ | | | | | | (4) on 05/01/2014 2:19:41 | | | | | | PM | | | | + + + + + + + + | Specimen | + + | | + + + + + | Narrative | Performed At | + + + | Historically converted procedure from [facility] [employer] environment | EXTERNAL LAB | + + + + +---------+ + + | Performing | Address | City/State/Zipcode | Phone Number | | Organization | | | | + +---------+ + + | EXTERNAL LAB | | | | + +---------+ + + documented in this encounter Visit Diagnoses + + | Diagnosis | + + | Congestive heart failure (HCC) Congestive heart failure, unspecified | + + | Hypoxia Hypoxemia | + + | Acidosis, metabolic Acidosis | + + | Hyperphosphatemia Disorders of phosphorus metabolism | + + | Hyponatremia Hyposmolality and/or hyponatremia | + + | Vitamin D deficiency Unspecified vitamin D deficiency | + + | Anemia Anemia, unspecified | + + | Elevated troponin Other abnormal blood chemistry | + + | Acute renal failure (HCC) Acute kidney failure, unspecified | + + | Acute systolic CHF (congestive heart failure) ([facility]) | + + | LEANNA (acute kidney injury) ([facility]) Acute kidney failure, unspecified | + + | Anemia, iron deficiency Iron deficiency anemia, unspecified | + + | DM2 (diabetes mellitus, type 2) ([facility]) Type II or unspecified type diabetes mellitus | | without mention of complication, not stated as uncontrolled | + + | Hyperkalemia Hyperpotassemia | + + documented in this encounter
--- OUTSIDE RECORDS SUMMARY | ~2020-05-14 | XMS | Encounter Summary ---
Demographics + + + | Address | [address] | | | [place] [address] | + + + | Home Phone | | + + + | Preferred Language | Unknown | + + + | Marital Status | | + + + | Yazidi Affiliation | Unknown | + + + | Race | Unknown | + + + | Ethnic Group | Unknown | + + + Author + + + | Author | [facility] | | | and [place] | + + + | Organization | [facility] | | [...] | | + + +---------+ + | [place] | ECON | Unknown | | + + +---------+ + Care Team Providers + +------+ + | Care County Assessor Name | Role | Phone | + +------+ + | Anthony Atkins DO | PCP | | + +------+ + Encounter Details +--------+ + + + + | Date | Type | Department | Care Team | Description | +--------+ + + + + | 07/23/ | Hospital | [facility] | Conversion | 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 | + +--------+ + + + documented in this encounter Results ECHO Complete (07/23/2016 3:08 PM PDT) + + | Specimen | + + | | + + + + + | Impressions | Performed At | + + + | 1. Overall left ventricular systolic function is mild-moderately | | | impaired with, an EF between 40 - 45 %. 2. Mymlwqzh-ch-uivaum mitral | | | regurgitation is present. 3. The right ventricular systolic pressure | | | (pulmonary artery systolic pressure), as measured by Doppler, is | | | 54.08mmHg. | | + + + + + + | Narrative | Performed At | + + + | Patient Name: ADI ELLER Date of : 1930 | | | Performing Physician: Leandro Main | | | | | | ------REPORT ADDENDED------ INDICATIONS | | | cardiomyopathy CONCLUSIONS 1. Overall left | | | ventricular systolic function is mild-moderately impaired with, an EF | | | between 40 - 45 %. 2. Wapmlipt-wv-zqgkgl mitral regurgitation is | | | present. 3. The right ventricular systolic pressure (pulmonary artery | | | systolic pressure), as measured by Doppler, is 54.08mmHg. | | | FINDINGS -------- ECG rhythm: Sinus rhythm with extra systolic | | | beats. Study: A 2-dimensional transthoracic echocardiogram with | | | m-mode, spectral and color flow Doppler was perfomed. Study: This was | | | a technically adequate study. Left Ventricle: Overall left | | | ventricular systolic function is mild-moderately impaired with, an EF | | | between 40 - 45 %. Left Ventricle: The left ventricle cavity size is | | | normal. Left Ventricle: Left ventricular wall thickness is normal. | | | Left Ventricle: The diastolic filling pattern indicates impaired | | | relaxation consistent with mild dysfunction (Grade I). Left | | | Ventricle: apex - dyskinetic; Right Ventricle: The right ventricle is | | | moderately enlarged measuring between 3.8 - 4.1 cm. Left Atrium: The | | | left atrium is markedly dilated. Right Atrium: The right atrial size | | | is normal. Aortic Valve: Aortic valve is trileaflet and is | | | moderately thickened. Aortic Valve: There is mild aortic valve | | | sclerosis without stenosis. Aortic Valve: There is wtqj-jf-rfwgonqc | | | aortic regurgitation. Aortic Valve: There is no evidence of aortic | | | stenosis. Mitral Valve: Wgwptljm-ou-qdtjnh mitral regurgitation is | | | present. Mitral Valve: Mild mitral annular calcification present. | | | Tricuspid Valve: Hvvv-zq-yuguiwoe tricuspid regurgitation present. | | | Tricuspid Valve: There is moderate pulmonary hypertension. Tricuspid | | | Valve: The right ventricular systolic pressure (pulmonary artery | | | systolic pressure), as measured by Doppler, is 54.08mmHg. Pulmonic | | | Valve: The pulmonic valve was not well visualized. Pulmonic Valve: | | | Mild pulmonic regurgitation. Pericardium: There is no pericardial | | | effusion. IVC/Hepatic Veins: The IVC is normal size (1.5-2.5cm) and | | | collapses >50% with sniff, consistent with central venous pressures of | | | 5-10mmHg. MEASUREMENTS SANDOVAL Planimetry: 1.95 | | | cm2 [place]AI Planimetry: 0.00 cm2/m2 IVC: 1.53 cm LA Major: | | | 5.33 cm EDV(Teich): 96.16 ml IVSd: 1.10 cm LVIDd: 4.57 cm | | | LVPWd: 1.01 cm %FS: 19.42 % EF(Teich): 40.05 % | | | ESV(Teich): 57.64 ml IVSs: 1.04 cm LVIDs: 3.68 cm LVPWs: | | | 1.67 cm SV(Teich): 38.51 ml RA Major: 4.62 cm RVIDd: | | | 3.90 cm LVEF MOD A2C: 40.92 % SV MOD A2C: 35.15 ml LVEF MOD | | | A4C: 47.04 % SV MOD A4C: 48.62 ml EF Biplane: 44.97 % | | | LVEDV MOD BP: 97.27 ml LVESV MOD BP: 53.52 ml LVEDV MOD A2C: | | | 85.90 ml LVLd A2C: 7.56 cm LVEDV MOD A4C: 103.34 ml LVLd | | | A4C: 7.83 cm LVESV MOD A2C: 50.75 ml LVLs A2C: 7.12 cm | | | LVESV MOD A4C: 54.72 ml LVLs A4C: 7.43 cm LAESV(A-L): 80.45 | | | ml LAESV Index (A-L): 52.93 ml/m2 LAAs A2C: 19.82 cm2 LAESV | | | A-L A2C: 68.11 ml LALs A2C: 4.89 cm LAAs A4C: 23.41 cm2 | | | LAESV A-L A4C: 86.97 ml LALs A4C: 5.34 cm AR Dec [place]: | | | 3.15 m/s2 AR Dec Time: 1269.54 ms AR maxP.33 mmHg AR | | | PHT: 368.16 ms AR Vmax: 4.01 m/s HR: 78.35 BPM AV maxPG: | | | 9.45 mmHg AV meanP.56 mmHg AV Vmax: 1.53 m/s AV Vmean: | | | 1.14 m/s AV VTI: 31.39 cm HR: 79.72 BPM LVOT maxPG: | | | 3.33 mmHg LVOT meanP.03 mmHg LVOT Vmax: 0.91 m/s LVOT | | | Vmean: 0.69 m/s LVOT VTI: 20.51 cm MCO: 377.62 ms MR | | | maxP.88 mmHg MR meanP.44 mmHg MR Vmax: 5.33 m/s | | | MR Vmean: 3.90 m/s MR VTI: 178.11 cm MV A Mc: 1.17 m/s | | | MV DecT: 195.69 ms MV E Mc: 0.96 m/s MV E/A Ratio: 0.82 | | | MV PHT: 61.69 ms MVA By PHT: 3.56 cm2 Septal e': 0.03 m/s | | | Septal E/e': 29.37 Lateral e': 0.03 m/s Lateral E/e': 26.35 | | | P Vein D: 0.56 m/s P Vein S/D Ratio: 0.66 P Vein S: 0.37 | | | m/s RAP: 8 mmHg RVSP: 54.07 mmHg TR maxP.07 mmHg TR | | | Vmax: 3.39 m/s TV A Mc: 0.17 m/s TV Dec [place]: 2.44 m/s2 | | | TV Dec Time: 85.42 ms TV E Mc: 0.20 m/s TV E/A Ratio: 1.19 | | | Public Transit Trolley Driver: JOSH Authenticated by: Leandro Main MD Report | | | Date/Time: 07-25-2016 11:03:04 | | + + + + + | Procedure Note | + + | Mateus Young Conversion - 06/15/2019 8:11 PM PDT Patient Name: Hetal ELLER | | : 1930 Performing Physician: Leandro Main | | MD ------REPORT | | ADDENDED------INDICATIONS cardiomyopathy CONCLUSIONS 1. Overall left | | ventricular systolic function is mild-moderately impaired with, an EF between 40 - 45 | | %.2. Tydvnmvf-eg-xamtzv mitral regurgitation is present.3. The right ventricular | | systolic pressure (pulmonary artery systolic pressure), as measured by Doppler, is | | 54.08mmHg. FINDINGS--------ECG rhythm: Sinus rhythm with extra systolic beats.Study: A | | 2-dimensional transthoracic echocardiogram with m-mode, spectral and color flow Doppler | | was perfomed.Study: This was a technically adequate study.Left Ventricle: Overall left | | ventricular systolic function is mild-moderately impaired with, an EF between 40 - 45 | | %.Left Ventricle: The left ventricle cavity size is normal.Left Ventricle: Left | | ventricular wall thickness is normal.Left Ventricle: The diastolic filling pattern | | indicates impaired relaxation consistent with mild dysfunction (Grade I).Left Ventricle: | | apex - dyskinetic;Right Ventricle: The right ventricle is moderately enlarged measuring | | between 3.8 - 4.1 cm.Left Atrium: The left atrium is markedly dilated.Right Atrium: The | | right atrial size is normal.Aortic Valve: Aortic valve is trileaflet and is moderately | | thickened.Aortic Valve: There is mild aortic valve sclerosis without stenosis.Aortic | | Valve: There is sjpo-eu-govqfjad aortic regurgitation.Aortic Valve: There is no evidence | | of aortic stenosis.Mitral Valve: Potodckj-rp-xbfmxm mitral regurgitation is | | present.Mitral Valve: Mild mitral annular calcification present.Tricuspid Valve: | | Piwr-my-wtiebnsl tricuspid regurgitation present.Tricuspid Valve: There is moderate | | pulmonary hypertension.Tricuspid Valve: The right ventricular systolic pressure | | (pulmonary artery systolic pressure), as measured by Doppler, is 54.08mmHg.Pulmonic | | Valve: The pulmonic valve was not well visualized.Pulmonic Valve: Mild pulmonic | | regurgitation.Pericardium: There is no pericardial effusion.IVC/Hepatic Veins: The IVC | | is normal size (1.5-2.5cm) and collapses >50% with sniff, consistent with central venous | | pressures of 5-10mmHg. MEASUREMENTS SANDOVAL Planimetry: 1.95 [id number] | | Planimetry: 0.00 cm2/m2IVC: 1.53 cmLA Major: 5.33 cmEDV(Teich): 96.16 mlIVSd: | | 1.10 cmLVIDd: 4.57 cmLVPWd: 1.01 cm%FS: 19.42 %EF(Teich): 40.05 %ESV(Teich): | | 57.64 mlIVSs: 1.04 cmLVIDs: 3.68 cmLVPWs: 1.67 cmSV(Teich): 38.51 mlRA Major: | | 4.62 cmRVIDd: 3.90 cmLVEF MOD A2C: 40.92 %SV MOD A2C: 35.15 mlLVEF MOD A4C: | | 47.04 %SV MOD A4C: 48.62 mlEF Biplane: 44.97 %LVEDV MOD BP: 97.27 mlLVESV MOD BP: | | 53.52 mlLVEDV MOD A2C: 85.90 mlLVLd A2C: 7.56 cmLVEDV MOD A4C: 103.34 mlLVLd | | A4C: 7.83 cmLVESV MOD A2C: 50.75 mlLVLs A2C: 7.12 cmLVESV MOD A4C: 54.72 mlLVLs | | A4C: 7.43 cmLAESV(A-L): 80.45 mlLAESV Index (A-L): 52.93 ml/m2LAAs A2C: 19.82 | | [id number] A-L A2C: 68.11 mlLALs A2C: 4.89 cmLAAs A4C: 23.41 [id number] A-L A4C: | | 86.97 mlLALs A4C: 5.34 cmAR Dec [place]: 3.15 m/s2AR Dec Time: 1269.54 msAR maxPG: | | 64.33 mmHgAR PHT: 368.16 msAR Vmax: 4.01 m/sHR: 78.35 BPMAV maxP.45 mmHgAV | | meanP.56 mmHgAV Vmax: 1.53 m/Claudia Vmean: 1.14 m/Claudia VTI: 31.39 cmHR: 79.72 | | BPMLVOT maxP.33 mmHgLVOT meanP.03 mmHgLVOT Vmax: 0.91 m/sLVOT Vmean: | | 0.69 m/sLVOT VTI: 20.51 cmMCO: 377.62 msMR maxP.88 mmHgMR meanP.44 | | mmHgMR Vmax: 5.33 m/sMR Vmean: 3.90 m/sMR VTI: 178.11 cmMV A Mc: 1.17 m/sMV | | DecT: 195.69 msMV E Mc: 0.96 m/sMV E/A Ratio: 0.82MV PHT: 61.69 msMVA By PHT: | | 3.56 ka4Jgxinp e': 0.03 m/sSeptal E/e': 29.37Lateral e': 0.03 m/sLateral E/e': | | 26.35P Vein D: 0.56 m/sP Vein S/D Ratio: 0.66P Vein S: 0.37 m/sRAP: 8 mmHgRVSP: | | 54.07 mmHgTR maxP.07 mmHgTR Vmax: 3.39 m/sTV A Mc: 0.17 m/sTV Dec [place]: | | 2.44 m/s2TV Dec Time: 85.42 msTV E Mc: 0.20 m/sTV E/A Ratio: 1.19 Public Transit Trolley Driver: | | GDAuthenticated by: Leandro Main MDReport Date/Time: 07-25-2016 11:03:04 | | IMPRESSION: 1. Overall left ventricular systolic function is mild-moderately impaired | | with, an EF between 40 - 45 %.2. Rwiwzkza-nv-nrunuk mitral regurgitation is present.3. | | The right ventricular systolic pressure (pulmonary artery systolic pressure), as | | measured by Doppler, is 54.08mmHg. | |EDV(Teich): 96.16 ml | |IVSd: 1.10 cm | |LVIDd: 4.57 cm | |LVPWd: 1.01 cm | |%FS: 19.42 % | |EF(Teich): 40.05 % | |ESV(Teich): 57.64 ml | |IVSs: 1.04 cm | |LVIDs: 3.68 cm | |LVPWs: 1.67 cm | |SV(Teich): 38.51 ml | |RA Major: 4.62 cm | |RVIDd: 3.90 cm | |LVEF MOD A2C: 40.92 % | |SV MOD A2C: 35.15 ml | |LVEF MOD A4C: 47.04 % | |SV MOD A4C: 48.62 ml | |EF Biplane: 44.97 % | |LVEDV MOD BP: 97.27 ml | |LVESV MOD BP: 53.52 ml | |LVEDV MOD A2C: 85.90 ml | |LVLd A2C: 7.56 cm | |LVEDV MOD A4C: 103.34 ml | |LVLd A4C: 7.83 cm | |LVESV MOD A2C: 50.75 ml | |LVLs A2C: 7.12 cm | |LVESV MOD A4C: 54.72 ml | |LVLs A4C: 7.43 cm | |LAESV(A-L): 80.45 ml | |LAESV Index (A-L): 52.93 ml/m2 | |LAAs A2C: 19.82 cm2 | |LAESV A-L A2C: 68.11 ml | |LALs A2C: 4.89 cm | |LAAs A4C: 23.41 cm2 | |LAESV A-L A4C: 86.97 ml | |LALs A4C: 5.34 cm | |AR Dec [place]: 3.15 m/s2 | |AR Dec Time: 1269.54 ms | |AR maxP.33 mmHg | |AR PHT: 368.16 ms | |AR Vmax: 4.01 m/s | |HR: 78.35 BPM | |AV maxP.45 mmHg | |AV meanP.56 mmHg | |AV Vmax: 1.53 m/s | |AV Vmean: 1.14 m/s | |AV VTI: 31.39 cm | |HR: 79.72 BPM | |LVOT maxP.33 mmHg | |LVOT meanP.03 mmHg | |LVOT Vmax: 0.91 m/s | |LVOT Vmean: 0.69 m/s | |LVOT VTI: 20.51 cm | |MCO: 377.62 ms | |MR maxP.88 mmHg | |MR meanP.44 mmHg | |MR Vmax: 5.33 m/s | |MR Vmean: 3.90 m/s | |MR VTI: 178.11 cm | |MV A Mc: 1.17 m/s | |MV DecT: 195.69 ms | |MV E Mc: 0.96 m/s | |MV E/A Ratio: 0.82 | |MV PHT: 61.69 ms | |MVA By PHT: 3.56 cm2 | |Septal e': 0.03 m/s | |Septal E/e': 29.37 | |Lateral e': 0.03 m/s | |Lateral E/e': 26.35 | |P Vein D: 0.56 m/s | |P Vein S/D Ratio: 0.66 | |P Vein S: 0.37 m/s | |RAP: 8 mmHg | |RVSP: 54.07 mmHg | |TR maxP.07 mmHg | |TR Vmax: 3.39 m/s | |TV A Mc: 0.17 m/s | |TV Dec [place]: 2.44 m/s2 | |TV Dec Time: 85.42 ms | |TV E Mc: 0.20 m/s | |TV E/A Ratio: 1.19 | | | |Public Transit Trolley Driver: GD | |Authenticated by: Leandro Main MD | |Report Date/Time: 07-25-2016 11:03:04 | | | |IMPRESSION: | |1. Overall left ventricular systolic function is mild-moderately impaired with, an EF betwe en 40 - 45 %. | |2. Qzrwnmwe-rw-zxzijy mitral regurgitation is present. | |3. The right ventricular systolic pressure (pulmonary artery systolic pressure), as measure d by Doppler, is 54.08mmHg. | + + documented in this encounter Visit Diagnoses + + | Diagnosis | + + | Secondary cardiomyopathy, unspecified | + + documented in this encounter"
--- OUTSIDE RECORDS SUMMARY | ~2020-05-14 | XMS | Encounter Summary ---
Demographics + + + | Address | [address] | | | [place] [address] | + + + | Home Phone | | + + + | Preferred Language | Unknown | + + + | Marital Status | | + + + | Hindu Affiliation | Unknown | + + + | Race | Unknown | + + + | Ethnic Group | Unknown | + + + Author + + + | Author | [facility] | | | and [place] | + + + | Organization | [facility] | | [...] Team Providers + +------+ + | Care Collaborative Physician Name | Role | Phone | + +------+ + | Anthony Atkins DO | PCP | | + +------+ + Encounter Details +--------+ + + + + | Date | Type | Department | Care Team | Description | +--------+ + + + + | 07/23/ | Hospital | [facility] | Conversion | Secondary | | 2016 | Encounter | [facility] | Transaction, | cardiomyopathy, | | | | ECHOCARDIOGRAPHY | Provider Unknown | unspecified | | | | [address] [facility] | | | | | | [place], [place] | (Fax) | | | | | [address] | | | | | | [phone] | | | +--------+ + + + [...] EF between 40 - 45 %. 2. Vbzrudvf-eh-aumgry mitral | | | regurgitation is present. [...] | between 40 - 45 %. 2. Qtegmgpi-cd-tymhup mitral regurgitation is | | | present. [...] sclerosis without stenosis. Aortic Valve: There is tacm-rc-dwqzcafl | | | aortic regurgitation. Aortic Valve: There is no evidence of aortic | | | stenosis. Mitral Valve: Nrrzzrdq-qv-xccihk mitral regurgitation is | | | present. Mitral Valve: Mild mitral annular calcification present. | | | Tricuspid Valve: Ojsg-jx-uewpjsnl tricuspid regurgitation present. | | | Tricuspid [...] ml LALs A4C: 5.34 cm AR Dec [place]: | | | 3.15 m/s2 AR Dec [...] TV A Mc: 0.17 m/s TV Dec [place]: 2.44 m/s2 | | | TV Dec Time: 85.42 ms TV E Mc: 0.20 m/s TV E/A Ratio: 1.19 | | | Order Picker/Assembler: JOSH Authenticated by: Leandro Main MD Report [...] between 40 - 45 | | %.2. Ygpnzbla-ig-xpkbde mitral regurgitation is present.3. The right ventricular [...] without stenosis.Aortic | | Valve: There is bjuy-ni-gnyyvvww aortic regurgitation.Aortic Valve: There is no evidence | | of aortic stenosis.Mitral Valve: Wenvofrh-gg-cffzxp mitral regurgitation is | | present.Mitral Valve: Mild mitral annular calcification present.Tricuspid Valve: | | Rfse-qf-sksnrsmj tricuspid regurgitation present.Tricuspid Valve: There is moderate [...] pressures of 5-10mmHg. MEASUREMENTS SANDOVAL Planimetry: 1.95 [id number] | | Planimetry: 0.00 cm2/m2IVC: 1.53 cmLA [...] (A-L): 52.93 ml/m2LAAs A2C: 19.82 | | [id number] A-L A2C: 68.11 mlLALs A2C: 4.89 cmLAAs A4C: 23.41 [id number] A-L A4C: | | 86.97 mlLALs A4C: 5.34 cmAR Dec [place]: 3.15 m/s2AR Dec Time: 1269.54 msAR maxPG: [...] 61.69 msMVA By PHT: | | 3.56 et6Pllnpe e': 0.03 m/sSeptal E/e': 29.37Lateral e': 0.03 m/sLateral E/e': | | 26.35P Vein D: 0.56 m/sP Vein S/D Ratio: 0.66P Vein S: 0.37 m/sRAP: 8 mmHgRVSP: | | 54.07 mmHgTR maxP.07 mmHgTR Vmax: 3.39 m/sTV A Mc: 0.17 m/sTV Dec [place]: | | 2.44 m/s2TV Dec Time: 85.42 msTV E Mc: 0.20 m/sTV E/A Ratio: 1.19 Order Picker/Assembler: | | GDAuthenticated by: Leandro Main MDReport Date/Time: 07-25-2016 11:03:04 | | IMPRESSION: 1. Overall left ventricular systolic function is mild-moderately impaired | | with, an EF between 40 - 45 %.2. Ssztikif-cg-vpkaci mitral regurgitation is present.3. | | The [...] |LALs A4C: 5.34 cm | |AR Dec [place]: 3.15 m/s2 | |AR Dec Time: 1269.54 [...] A Mc: 0.17 m/s | |TV Dec [place]: 2.44 m/s2 | |TV Dec Time: 85.42 ms | |TV E Mc: 0.20 m/s | |TV E/A Ratio: 1.19 | | | |Order Picker/Assembler: GD | |Authenticated by: Leandro Main MD | |Report Date/Time: 07-25-2016 11:03:04 | | | |IMPRESSION: | |1. Overall left ventricular systolic function is mild-moderately impaired with, an EF betwe en 40 - 45 %. | |2. Xbzpftry-ue-qpsmjk mitral regurgitation is present. | |3. The right ventricular systolic pressure (pulmonary artery systolic pressure), as measure d by Doppler, is 54.08mmHg. | + + documented in this encounter Visit Diagnoses + + | Diagnosis | + + | Secondary cardiomyopathy, unspecified | + + documented in this encounter"
--- OUTSIDE RECORDS SUMMARY | ~2020-05-14 | XMS | Encounter Summary ---
Demographics + + + | Address | [address] | | | [place] [address] | + + + | Home Phone | | + + + | Preferred Language | Unknown | + + + | Marital Status | | + + + | Yarsani Affiliation | Unknown | + + + | Race | Unknown | + + + | Ethnic Group | Unknown | + + + Author + + + | Author | [facility] | | | and [place] | + + + | Organization | [facility] | | | [...] Team Providers + +------+ + | Care Client Relation Specialist Name | Role | Phone | + +------+ + | Anthony Atkins DO | PCP | | + +------+ + Encounter Details +--------+ + + + + | Date | Type | Department | Care Team | Description | +--------+ + + + + | 06/19/ | Orders Only | [facility] | Alex Carbajal MD | CKD (chronic kidney | | 2019 | | [facility]PHR[facility] [place] | [address] | disease) stage 4, | | | | [address] | [address] [facility] [place] | GFR 15-29 ml/min | | | | [address] [facility] [place] | [id number] | ([facility]) (Primary Dx); | | | | [address] | | Proteinuria, | | | | [phone] | | unspecified type | +--------+ + + + + Social [...] as of this encounter Plan of Treatment + +------+--------+ + + | Name | Type | Priori | Associated Diagnoses | Order Schedule | | | | ty | | | + +------+--------+ + + | Basic Metabolic | Lab | Routin | CKD (chronic | Expected: | | Panel | | e | kidney disease) | 07/24/2019, Expires: | | | | | stage 4, GFR 15-29 | 06/19/2020 | | | | | ml/min (HCC) | | | | | | Proteinuria, | | | | | | unspecified type | | + +------+--------+ + + | CBC w/ Auto | Lab | Routin | CKD (chronic | Expected: | | Differential | | e | kidney disease) | 07/24/2019, Expires: | | | | | stage 4, GFR 15-29 | 06/19/2020 | | | | | ml/min ([facility]) | | | | | | Proteinuria, | | | | | | unspecified type | | + +------+--------+ + + | Protein/Creatinine | Lab | Routin | CKD (chronic | Expected: | | Ratio, Urine | | e | kidney disease) | 07/24/2019, Expires: | | | | | stage 4, GFR 15-29 | 06/19/2020 | | | | | ml/min (HCC) | | | | | | Proteinuria, | | | | | | unspecified type | | + +------+--------+ + + | Uric Acid | Lab | Routin | CKD (chronic | Expected: | | | | e | kidney disease) | 07/24/2019, Expires: | | | | | stage 4, GFR 15-29 | 06/19/2020 | | | | | ml/min ([facility]) | | | | | | Proteinuria, | | | | | | unspecified type | | + +------+--------+ + + | Urinalysis With | Lab | Routin | CKD (chronic | Expected: | | Microscopic | | e | kidney disease) | 07/24/2019, Expires: | | | | | stage 4, GFR 15-29 | 06/19/2020 | | | | | ml/min ([facility]) | | | | | | Proteinuria, | | | | | | unspecified type | | + +------+--------+ + + documented as of this encounter Visit Diagnoses + + | Diagnosis | + + | CKD (chronic kidney disease) stage 4, GFR 15-29 ml/min ([facility]) - Primary Chronic kidney | | disease, Stage IV (severe) | + + | Proteinuria, unspecified type | + + documented in this encounter"
--- OUTSIDE RECORDS SUMMARY | ~2020-05-14 | XMS | Encounter Summary ---
Demographics + + + | Address | [address] | | | [place] [address] | + + + | Home Phone | | + + + | Preferred Language | Unknown | + + + | Marital Status | | + + + | Yazdanism Affiliation | Unknown | + + + | Race | Unknown | + + + | Ethnic Group | Unknown | + + + Author + + + | Author | [facility] | | | and [place] | + + + | Organization | [facility] | | | [...] Team Providers + +------+ + | Care Standards Analyst Name | Role | Phone | + +------+ + PCP | Unavailable | + +------+ + Encounter Details +--------+ + + + + | Date | Type | Department | Care Team | Description | +--------+ + + + + | 03/11/ | Hospital | [facility] | Conversion | 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[facility] | Transaction, | cardiomyopathies | | | | ECHOCARDIOGRAPHY | Provider Unknown | (HCC) | | | | [address] [facility] | | | | | | [place], [place] | (Fax) | | | | | [address] | | | | | | [phone] | | | +--------+ + + + [...] is normal. Mitral Valve: | | | Pkpz-xr-cplsgenq mitral regurgitation is present Mitral Valve: , [...] structurally normal. Tricuspid Valve: | | | Zkxn-ql-niyuufcs tricuspid regurgitation present. Tricuspid Valve: | | [...] 51.14 ml D-E Excursion: 1.19 cm E-F Harmon: | | | 0.03 m/s EPSS: 0.96 cm IVC diameter: 2.34 cm IVC | | | collapse: 1.13 cm IVC % collapse: 49.17 % AR Dec Harmon: | | | 2.26 m/s2 AR Dec [...] m/s PAEDP: 18.02 mmHg HR: 75.13 BPM OR maxPG: | | | 7.94 mmHg OR meanP.12 mmHg OR Vmax: 1.40 m/s OR Vmean: | | | 1.09 m/s OR VTI: 52.73 cm PRend P.02 mmHg PRend [...] TV A Mc: 0.51 m/s TV Dec Harmon: | | | 1.27 m/s2 TV Dec Time: 378.04 ms TV E Mc: 0.48 m/s TV E/A | | | Ratio: 0.94 Cloth Burler: TS Authenticated by: Leandro | | | [...] mitral valve is normal.Mitral Valve: | | Loww-ea-ipoornpk mitral regurgitation is presentMitral Valve: , predominately a | | centrally directed jet.Mitral Valve: Moderate mitral annular calcification | | present.Mitral Valve: Mild thickening of the anterior mitral valve leaflet.Mitral Valve: | | There is mild thickening of the posterior mitral valve leaflet.Tricuspid Valve: The | | tricuspid valve appears structurally normal.Tricuspid Valve: Cide-yc-xzhmshly tricuspid | | regurgitation present.Tricuspid Valve: There [...] (A-L): 50.65 ml/m2LAAs A2C: | | 21.56 [id number] A-L A2C: 75.42 mlLALs A2C: 5.23 cmLAAs A4C: 22.01 lm0BYRIR A-L A4C: | | 72.19 mlLALs A4C: 5.69 cmAo Diam: 3.12 cmAV Cusp: 1.75 cmLA Diam: 4.25 | | cmLA/Ao: 1.36%FS: 31.28 %EDV(Teich): 86.18 mlEF(Teich): 59.34 %ESV(Teich): | | 35.04 mlIVSd: 1.10 cmIVSs: 1.20 cmLVIDd: 4.36 cmLVIDs: 3.00 cmLVPWd: 1.00 | | cmLVPWs: 1.40 cmSV(Teich): 51.14 mlD-E Excursion: 1.19 cmE-F Harmon: 0.03 | | m/sEPSS: 0.96 cmIVC diameter: 2.34 cmIVC collapse: 1.13 cmIVC % collapse: 49.17 | | %AR Dec Harmon: 2.26 m/s2AR Dec Time: 1647.45 msAR maxP.45 [...] Vmax: 2.13 cm2AVA (VTI): | | 2.55 kp2WVDH Dopp: 3.79 l/gyfx7ZUKJ Dopp: 5.77 l/minHR: 69.22 BPMLVOT maxPG: | [...] 3.41 m/sTV A Mc: 0.51 m/sTV Dec Harmon: 1.27 m/s2TV Dec Time: | | 378.04 msTV E Mc: 0.48 m/sTV E/A Ratio: 0.94 Cloth Burler: TSAuthenticated by: | | Leandro Main MDReport [...] | |D-E Excursion: 1.19 cm | |E-F Harmon: 0.03 m/s | |EPSS: 0.96 cm | |IVC diameter: 2.34 cm | |IVC collapse: 1.13 cm | |IVC % collapse: 49.17 % | |AR Dec Harmon: 2.26 m/s2 | |AR Dec Time: 1647.45 [...] 18.02 mmHg | |HR: 75.13 BPM | |OR maxP.94 mmHg | |OR meanP.12 mmHg | |OR Vmax: 1.40 m/s | |OR Vmean: 1.09 m/s | |OR VTI: 52.73 cm | |PRend P.02 mmHg [...] A Mc: 0.51 m/s | |TV Dec Harmon: 1.27 m/s2 | |TV Dec Time: 378.04 ms | |TV E Mc: 0.48 m/s | |TV E/A Ratio: 0.94 | | | |Cloth Burler: TS | |Authenticated by: Leandro Main MD [...]
--- OUTSIDE RECORDS SUMMARY | ~2020-05-14 | XMS | Encounter Summary ---
Demographics + + + | Address | [address] | | | [place] [address] | + + + | Home Phone | | + + + | Preferred Language | Unknown | + + + | Marital Status | | + + + | Jewish Affiliation | Unknown | + + + | Race | Unknown | + + + | Ethnic Group | Unknown | + + + Author + + + | Author | [facility] | | | and [place] | + + + | Organization | [facility] | | | [...] Team Providers + +------+ + | Care Cancer Program Coordinator Name | Role | Phone | + +------+ + | Anthony Atkins DO | PCP | | + +------+ + Encounter Details +--------+ + + + + | Date | Type | Department | Care Team | Description | +--------+ + + + + | 04/15/ | Abstract | [facility] | Narayan Butler, | | | 2015 | | [facility] | Technologist | | | | | [address] | | | | | | [place] | | | | | | [address] | | | | | | [phone] | | | +--------+ + + + [...] | + +--------+ + + + | LVEF VALUE | Routin | 04/06/2016 | | Results for this | | | e | | | procedure are in the | | | | | | results section. | + +--------+ + + + documented in this encounter Results LVEF VALUE (04/06/2016) + +-------+ + + + | Component | Value | Ref Range | Performed | Pathologist | | | | | At | Signature | + +-------+ + + + | LVEF-TTE | 55 | | | | | TRANSTHORAC | | | | | | IC ECHO | | | | | + +-------+ + + + documented in this encounter Visit Diagnoses Not on filedocumented in this encounter"
--- OUTSIDE RECORDS SUMMARY | ~2020-05-14 | XMS | Encounter Summary ---
Demographics + + + | Address | [address] | | | [place] [address] | + + + | Home Phone | | + + + | Preferred Language | Unknown | + + + | Marital Status | | + + + | Samaritan Affiliation | Unknown | + + + | Race | Unknown | + + + | Ethnic Group | Unknown | + + + Author + + + | Author | [facility] | | | and [place] | + + + | Organization | [facility] | | | [...] Team Providers + +------+ + | Care Business Manager [employer] Name | Role | Phone | + +------+ + | Anthony Atkins DO | PCP | | + +------+ + Reason for Visit +--------+ + | Reason | Comments | +--------+ + | Other | Referral abstracting | +--------+ + Encounter Details +--------+ + + + + | Date | Type | Department | Care Team | Description | +--------+ + + + + | 06/19/ | Documentati | [facility] | Mcintosh, | Other (Referral | | 2019 | on | NEPHROLOGY [place] | Justin Choi | abstracting) | | | | [address] | [employer] | | | | | [address] [place], [place] | | | | | | [address] | | | | | | [phone] | | | +--------+ + + + [...] + + | COMPREHENSIVE | Routin | 01/30/2019 | | Results for this | | METABOLIC PANEL | e | 11:22 AM | | procedure are in the | | | | PDT | | results section. | + +--------+ + + + | CULTURE, URINE | Routin | 12/01/2018 | | Results for this | | | e | 3:39 AM | | procedure are in the | | | | PST | | results section. | + +--------+ + + + | B TYPE NATRIURETIC | Routin | 11/30/2018 | | Results for this | | PEPTIDE | e | 11:07 AM | | procedure are in the | | | | PST | | results section. | + +--------+ + + + | MICROALBUMIN/CREATIN | Routin | 11/30/2018 | | Results for this | | INE RATIO, URINE | e | 10:55 AM | | procedure are in the | | RESULT (NON-ORD) | | PST | | results section. | + +--------+ + + + | URINALYSIS | Routin | 11/30/2018 | | Results for this | | | e | 10:55 AM | | procedure are in the | | | | PST | | results section. | + +--------+ + + + | LIPID PANEL | Routin | 11/30/2018 | | Results for this | | | e | 9:17 AM | | procedure are in the | | | | PST | | results section. | + +--------+ + + + | CBC W/AUTO | Routin | 11/30/2018 | | Results for this | | DIFFERENTIAL | e | 9:17 AM | | procedure are in the | | | | PST | | results section. | + +--------+ + + + documented in this encounter Results Comprehensive Metabolic Panel (01/30/2019 11:22 AM PDT) + + + + + + | Component | Value | Ref Range | Performed | Pathologist | | | | | At | Signature | + + + + + + | BUN/Creatin | 13.4 | | | | | ine Ratio | | | | | + + + + + + | GFR | 24 (A) | 60 - 140 | | | | ESTIMATE | | | | | | (REF) | | | | | + + + + + + | Anion Gap | 22 | 14 - 65 mmol/L | | | + + + + + + | Glucose | 104 | 65 - 110 mg/dL | | | + + + + + + | BUN | 29 (A) | 8 - 25 mg/dL | | | + + + + + + | CREA | 2.10 (A) | 0.70 - 1.00 | | | | | | mg/dL | | | + + + + + + | Na | 140 | 135 - 145 | | | | | | mmol/L | | | + + + + + + | K | 4.9 | 3.5 - 5.0 | | | | | | mmol/L | | | + + + + + + | Cl | 108 | mmol/L | | | + + + + + + | CO2 | 15 | mmol/L | | | + + + + + + | Calcium | 8.3 | | | | + + + + + + | PROTEIN | 6.7 | mg/24hrs | | | | (CALC) | | | | | + + + + + + | Albumin | 3.9 | g/dL | | | + + + + + + | Bilirubin | 0.5 | mg/dL | | | | Total | | | | | + + + + + + | AST | 15 | U/L | | | + + + + + + | ALT | 8 | U/L | | | + + + + + + | Alkaline | 136 | U/L | | | | Phosphatase | | | | | + + + + + + + + | Specimen | + + | Blood | + + Culture, Urine (12/01/2018 3:39 AM PST) + + + + + + | Component | Value | Ref Range | Performed | Pathologist | | | | | At | Signature | + + + + + + | Urine | Positive | | | | | Culture, | | | | | | Comprehensi | | | | | | ve | | | | | + + + + + + + + | Specimen | + + | Urine | + + + + +--------+ + | Organism | Antibiotic | Method | Susceptibility | + + +--------+ + | Escherichia coli | Amoxicillin + | | Sensitive | | | Clavulanate | | | + + +--------+ + | Escherichia coli | Cefazolin | | Sensitive | + + +--------+ + | Escherichia coli | Ceftriaxone | | Sensitive | + + +--------+ + | Escherichia coli | Cefepime | | Sensitive | + + +--------+ + | Escherichia coli | Aztreonam | | Sensitive | + + +--------+ + | Escherichia coli | Ertapenem | | Sensitive | + + +--------+ + | Escherichia coli | Imipenem | | Sensitive | + + +--------+ + | Escherichia coli | Meropenem | | Sensitive | + + +--------+ + | Escherichia coli | Gentamicin | | Sensitive | + + +--------+ + | Escherichia coli | Ciprofloxacin | | Sensitive | + + +--------+ + | Escherichia coli | Levofloxacin | | Sensitive | + + +--------+ + | Escherichia coli | Nitrofurantoin | | Sensitive | + + +--------+ + | Escherichia coli | Trimethoprim + | | Sensitive | | | Sulfamethoxazole | | | + + +--------+ + B Type Natriuretic Peptide (11/30/2018 11:07 AM PST) + +-------+ + + + | Component | Value | Ref Range | Performed | Pathologist | | | | | At | Signature | + +-------+ + + + | BNP | 684 | pg/mL | | | + +-------+ + + + + + | Specimen | + + | Blood | + + Microalbumin/Creatinine Ratio, Urine Result (11/30/2018 10:55 AM PST) + +---------+ + + + | Component | Value | Ref Range | Performed | Pathologist | | | | | At | Signature | + +---------+ + + + | Microalb | 1,177.1 | | | | | Creat Ratio | | | | | + +---------+ + + + + + | Specimen | + + | Urine | + + Urinalysis (11/30/2018 10:55 AM PST) + + + + + + | Component | Value | Ref Range | Performed | Pathologist | | | | | At | Signature | + + + + + + | Color | yellow | | | | + + + + + + | Clarity, | Hazy | | | | | Urine | | | | | + + + + + + | Specific | 1.013 | 1.005 - 1.030 | | | | [place] | | | | | + + + + + + | Leukocyte | Trace (A) | Negative | | | | Esterase, | | | | | | Urine | | | | | + + + + + + | Nitrite, | Negative | Negative | | | | Urine | | | | | + + + + + + | pH, Urine | 5.0 | 5.0 - 8.0 | | | + + + + + + | Protein, | 100 mg/dL (A) | Negative | | | | Urine | | | | | + + + + + + | Glucose, | Negative | Negative | | | | Urine | | | | | + + + + + + | Ketones, | Negative | Negative | | | | Urine | | | | | + + + + + + | Urobilinoge | Normal | < 0.2 mg/dL, | | | | n, Urine | | 1.0 mg/dL, 4.0 | | | | | | mg/dL, Normal, | | | | | | 1.0 E.U./dL, | | | | | | 0.2 E.U./dL, | | | | | | 0.2 mg/dL, | | | | | | Negative, 1 | | | | | | mg/dL, <2.0 | | | | | | mg/dL | | | + + + + + + | Bilirubin, | Negative | Negative | | | | Urine | | | | | + + + + + + | Blood, | Trace (A) | Negative | | | | Urine | | | | | + + + + + + | WBC UA | 40 | /HPF | | | + + + + + + | RBC UA | 5 | /HPF | | | + + + + + + | Epithelial | Trace | | | | | Cells | | | | | + + + + + + | CASTS | Negative | | | | + + + + + + | Bacteria, | None Seen | None Seen, 1-5, | | | | UA | | Occasional | | | + + + + + + | CRYSTAL UA | Negative | | | | + + + + + + | Amorphous | Negative | | | | | sediment, | | | | | | UA | | | | | + + + + + + + + | Specimen | + + | Urine | + + Lipid Panel (11/30/2018 9:17 AM PST) + +-------+ + + + | Component | Value | Ref Range | Performed | Pathologist | | | | | At | Signature | + +-------+ + + + | Cholesterol | 132 | 200 | | | | , Body | | | | | | Fluid | | | | | + +-------+ + + + | HDL | 43 | mg/dl | | | | Cholesterol | | | | | | , External | | | | | + +-------+ + + + | Triglycerid | 121 | | | | | es, Fluid | | | | | + +-------+ + + + + + | Specimen | + + | Blood | + + CBC w/ Auto Differential (11/30/2018 9:17 AM PST) + +-------+ + + + | Component | Value | Ref Range | Performed | Pathologist | | | | | At | Signature | + +-------+ + + + | BUN/Creatin | 13.7 | | | | | ine Ratio | | | | | + +-------+ + + + | GFR | 30 | | | | | ESTIMATE | | | | | | (REF) | | | | | + +-------+ + + + | Anion Gap | 15 | mmol/L | | | + +-------+ + + + | LDL | 34.8 | mg/dL | | | | Cholesterol | | | | | + +-------+ + + + | Glucose | 138 | mg/dL | | | + +-------+ + + + | UREA | 24 | | | | | NITROGEN | | | | | | OUTPUT | | | | | + +-------+ + + + | Creatine, | 1.70 | | | | | Serum | | | | | + +-------+ + + + | Na | 1 | mmol/L | | | + +-------+ + + + | K | 4.7 | 3.2 - 5.7 | | | | | | mmol/L | | | + +-------+ + + + | Cl | 112 | mmol/L | | | + +-------+ + + + | Carbon | 18 | | | | | dioxide | | | | | + +-------+ + + + | Calcium | 7.7 | | | | + +-------+ + + + | PROTEIN | 6.1 | mg/24hrs | | | | (CALC) | | | | | + +-------+ + + + | Albumin | 3.5 | g/dL | | | + +-------+ + + + | Bilirubin | 0.5 | mg/dL | | | | Total | | | | | + +-------+ + + + | AST | 11 | U/L | | | + +-------+ + + + | ALT | 9 | U/L | | | + +-------+ + + + | Alkaline | 132 | U/L | | | | Phosphatase | | | | | + +-------+ + + + + + | Specimen | + + | Blood | + + documented in this encounter Visit Diagnoses Not on filedocumented in this encounter"
--- OUTSIDE RECORDS SUMMARY | ~2020-05-14 | XMS | Encounter Summary ---
Demographics + + + | Address | [address] | | | [place] [address] | + + + | Home Phone | | + + + | Preferred Language | Unknown | + + + | Marital Status | | + + + | Moravian Affiliation | Unknown | + + + | Race | Unknown | + + + | Ethnic Group | Unknown | + + + Author + + + | Author | [facility] | | | and [place] | + + + | Organization | [facility] | | | and [place] | + + + | Address | Unknown | + + + | Phone | Unavailable | + + + Support + + +---------+ + | Name | Relationship | Address | Phone | + + +---------+ + | Amado Eller | ECON | Unknown | | + + +---------+ + | Dori Yasmin | ECON | Unknown | | + + +---------+ + | Helga Hoffman | ECON | Unknown | | + + +---------+ + Care Team Providers + +------+ + | Care Psychology Professor Name | Role | Phone | + +------+ + | Anthony Atkins DO | PCP | | + +------+ + Reason for Visit + +--------+ + | Reason | Onset | Comments | | | Date | | + +--------+ + | Referral Consult | 04/08/ | | | | 2015 | | + +--------+ + Encounter Details +--------+ + + + + | Date | Type | Department | Care Team | Description | +--------+ + + + + | 04/08/ | Telephone | [facility] | Anthony Atkins, | Referral Consult | | 2015 | | CARDIOLOGY [address] | DO [address] | | | | | [place], | [place] [address] | | | | | [place] [address] | [phone] | | | | | [phone] | | | +--------+ + + + [...] + + documented as of this encounter Miscellaneous Notes Telephone Encounter - Layla Alcala - 04/08/2016 8:50 AM PDTPatient was seen in [facility] Scott and has been scheduled for a hospital follow-up appointment with Dr. Scott on 04-20-16. Patient has [email or web address] as her 2nd insurance. Called [facility], office of Dr. Atkins, and left a [facility] for Jo, Patient Contracting Support Specialist, requesting authorizati on. documented in this encou nter Plan of Treatment Not on filedocumented as of this encounter Visit Diagnoses Not on filedocumented in this encounter"
--- OUTSIDE RECORDS SUMMARY | ~2020-05-14 | XMS | Clinical Summary ---
Demographics + + + | Address | [address] | | | [place] [address] | + + + | Home Phone | | + + + | Preferred Language | Unknown | + + + | Marital Status | | + + + | Confucianist Affiliation | Unknown | + + + | Race | Unknown | + + + | Ethnic Group | Unknown | + + + Author + + + | Author | [facility] | | | and [place] | + + + | Organization | [facility] | | | and [...] Team Providers + +------+ + | Care Aluminum Pool Installer Name | Role | Phone | + +------+ + | Anthony Atkins DO | PCP | | + +------+ + Allergies No Known Allergies Medications + + + +---------+------+------+-------+ | Medication | Sig | Dispensed | Refills | Star | End | Statu | | | | | | t | Date | s | | | | | | Date | | | + + + +---------+------+------+-------+ | aspirin 81 mg | Take 1 tablet by | 30 | 0 | 06/0 | | Activ | | chewable tablet | mouth Daily. | tablet | | 9/20 | | e | | | | | | 16 | | | + + + +---------+------+------+-------+ | atorvaSTATin | Take 1 tablet by | 30 | 0 | 06/0 | | Activ | | (LIPITOR) 20 mg | mouth nightly. | tablet | | 9/20 | | e | | tablet | | | | 16 | | | + + + +---------+------+------+-------+ | carvedilol (COREG) | Take 1 tablet by | 60 | 0 | 06/0 | | Activ | | 3.125 mg tablet | mouth 2 times daily | tablet | | 9/20 | | e | | | (with breakfast & | | | 16 | | | | | dinner). | | | | | | + + + +---------+------+------+-------+ | cyanocobalamin | Take 1 tablet by | 30 | 0 | 06/0 | | Activ | | (VITAMIN B-12) 1000 | mouth Daily. | tablet | | 9/20 | | e | | MCG tablet | | | | 16 | | | + + + +---------+------+------+-------+ | docusate sodium | Take 1 capsule by | 30 | 0 | 06/0 | | Activ | | (COLACE) 250 MG | mouth Daily. | capsule | | 9/20 | | e | | capsule | | | | 16 | | | + + + +---------+------+------+-------+ | furosemide (LASIX) | Take 1 tablet by | 50 | 0 | 06/0 | | Activ | | 80 mg tablet | mouth Daily. | tablet | | 9/20 | | e | | | | | | 16 | | | + + + +---------+------+------+-------+ | ascorbic acid | Take 500 mg by | | 0 | 11/2 | | Activ | | (VITAMIN C) 500 mg | mouth. | | | 5/20 | | e | | tablet | | | | 16 | | | + + + +---------+------+------+-------+ | | Inhale 2 puffs into | | 0 | 11/2 | | Activ | | budesonide-formotero | the lungs. | | | 5/20 | | e | | l (SYMBICORT) | | | | 16 | | | | 160-4.5 mcg/puff | | | | | | | | inhaler | | | | | | | + + + +---------+------+------+-------+ | ferrous sulfate | Take by mouth. | | 0 | 11/2 | | Activ | | 324 (65 Fe) MG EC | | | | 5/20 | | e | | tablet | | | | 16 | | | + + + +---------+------+------+-------+ | glipiZIDE | Take 5 mg by mouth. | | 0 | 08/0 | | Activ | | (GLUCOTROL) 5 mg | | | | 7/20 | | e | | tablet | | | | 14 | | | + + + +---------+------+------+-------+ | lisinopril | Take 10 mg by mouth. | | 0 | 11/2 | | Activ | | (PRINIVIL, ZESTRIL) | | | | 5/20 | | e | | 10 mg tablet | | | | 16 | | | + + + +---------+------+------+-------+ | atorvaSTATin | Take 20 mg by mouth. | | 0 | 11/2 | | Activ | | (LIPITOR) 20 mg | | | | 5/20 | | e | | tablet | | | | 16 | | | + + + +---------+------+------+-------+ | carvedilol (COREG) | Take 6.25 mg by | | 0 | 11/2 | | Activ | | 6.25 mg tablet | mouth. | | | 5/20 | | e | | | | | | 16 | | | + + + +---------+------+------+-------+ | cyanocobalamin | Take 1,000 mcg by | | 0 | 11/2 | | Activ | | (VITAMIN B-12) 1,000 | mouth. | | | 5/20 | | e | | mcg tablet | | | | 16 | | | + + + +---------+------+------+-------+ | furosemide (LASIX) | Take 20 mg by mouth. 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 | + + + | Benign essential HTN | 01/16/2020 | + + + | Microalbuminuria | 01/16/2020 | + + + | Coronary artery disease involving [place] coronary artery | 09/23/2016 | + + + | Localized arteriovenous malformations of intestinal tract | 09/23/2016 | + + + | Pulmonary emphysema | 09/23/2016 | + + + | Smoker | 09/23/2016 | + + + | Ischemic cardiomyopathy | 04/09/2016 | + + + | Anemia | 04/09/2016 | + + + | CHF (congestive heart failure) | 04/06/2016 | + + + | SOB (shortness of breath) on exertion | 04/06/2016 | + + + | Acute respiratory failure | 04/06/2016 | + + + | Hyperkalemia | 12/12/2014 | + + + | CKD (chronic kidney disease) stage 4, GFR 15-29 ml/min | 07/16/2014 | + + + | Asymptomatic hyperuricemia | 05/22/2014 | + + + | Systolic CHF, chronic | 05/22/2014 | + + + | Vitamin D deficiency | 05/03/2014 | + + + | Anemia, iron deficiency | 05/02/2014 | + + + | DM2 (diabetes mellitus, type 2) | 05/01/2014 | + + + Family History + + +------+ + | Medical History | Relation | Name | Comments | + + +------+ + | Diabetes | Daughter | | | + + +------+ + | Heart disease | Neg Hx | | | + + +------+ + + +------+ + + | Relation | Name | Status | Comments | + +------+ + + | Daughter | | Alive | | + +------+ + + | Daughter | | Alive | | + +------+ + + | Daughter | | | | + +------+ + + | Father | | | | + +------+ + + | Mother | | | | + +------+ + + | Son | | Alive | | + +------+ + + | Son | | Alive | | + +------+ + + Social History + +-------+ +--------+------+ [...] on file | | + + + Last Filed Vital Signs + + + [...] | | + + + + + Plan of Treatment + + + + + | Health Maintenance | Due Date | Last | Comments | | | | Done | | + + + + + | Diabetic Eye Exam | | | | | | 9 | | | + + + + + | Diabetic Foot Exam | | | | | | 9 | | | + + + + + | Vaccine: | | | | | Dtap/Tdap/Td (1 - | 0 | | | | Tdap) | | | | + + + + + | Vaccine: Zoster (1 | | | | | of 2) | 1 | | | + + + + + | Vaccine: | | | | | Pneumococcal 65+ (1 | 6 | | | | of 1 - PPSV23) | | | | + + + + + | Hemoglobin A1c | | 09/23/20 | | | Screening | 7 | 16, | | | | | 05/07/20 | | | | | 15, | | | | | 05/02/20 | | | | | 14 | | + + + + + | Adult Annual | | | | | Wellness Visit | 9 | | | + + + + + | Vaccine: Influenza | | | | | (#1) | 0 | | | + + + + + Results Not on filefrom Last 3 Months Insurance + +--------+ +--------+ +---------+--------+ | Payer | Benefi | Subscriber | Effect | Phone | Address | Type | | | t Plan | ID | jim | | | | | | / | | Dates | | | | | | Group | | | | | | + +--------+ +--------+ +---------+--------+ | MEDICARE | MEDICA | [id number] | | [phone] | | Medica | | | RE | | [phone]-Pr | [phone] | | re | | | PART A | | esent | | | | | | AND B | | | | | | + +--------+ +--------+ +---------+--------+ | [facility] | [employer] | [id number] | 04/05/20 | | | Indemn | | SERVICE | YELLOW | | 16-Pre | | | ity | | | HAWK | | sent | | | | + +--------+ +--------+ +---------+--------+ + +--------+ +--------+ + + | Guarantor Name | Accoun | Relation to | Date | Phone | Billing Address | | | t Type | Patient | of | | | | | | | | | | + +--------+ +--------+ + + | Alexsandra Eller | Person | Self [birth year] | [address] | | | al/Fam | | 1930 | [phone] | [place] | | | [place] | | | [address] (Home) | [phone] | + +--------+ +--------+ + + Advance Directives + + + + + | Type | Date Recorded | Patient | Explanation | | | | Laundry Routeman | | + + + + + | Power of | | | | | Home Care Aide | | | | + + + + + | Advance | 04/06/2016 7:22 | | | | Directive | AM | | | + + + + + + + + + + | Code Status | Date | Date | Comments | | | Activated | Inactivated | | + + + + + | Full Code | 04/06/2016 | 04/09/2016 | | | | 9:44 AM | 9:20 PM | | + + + + +
--- OUTSIDE RECORDS SUMMARY | ~2020-05-14 | XMS | Encounter Summary ---
Demographics + + + | Address | [address] | | | [place] [address] | + + + | Home Phone | | + + + | Preferred Language | Unknown | + + + | Marital Status | | + + + | Shinto Affiliation | Unknown | + + + | Race | Unknown | + + + | Ethnic Group | Unknown | + + + Author + + + | Author | [facility] | | | and [place] | + + + | Organization | [facility] | | | [...] Providers + +------+ + | Care Director Title Name | Role | Phone | + +------+ + | Anthony Atkins DO | PCP | | + +------+ + Encounter Details +--------+ + + + + | Date | Type | Department | Care Team | Description | +--------+ + + + + | 09/23/ | Hospital | [facility] [place] [facility] | Conversion | Diagnosis unknown | | 2016 | Encounter | CONVERSION DEP [address] | Transaction, | | | | | [address] | Provider Unknown | | | | | [place] | [phone] | | | | | [phone] | | | | | | [phone] | | | +--------+ + + + [...] +--------+ + + + | XR CHEST 1 VIEW | Routin | 09/23/2016 | | Results for this | | | e | 4:07 PM | | procedure are in the | | | | PST | | results section. | + +--------+ + + + documented in this encounter Results XR Chest 1 Vw (09/23/2016 4:07 PM PST) + + | Specimen | + + | | + + + + + | Narrative | Performed At | + + + | This is a non-reportable procedure without a radiologist report and | | | is used for image storage only | | + + + + + | Procedure Note | + + | Mateus Young - 06/15/2019 8:11 PM PDT This is a non-reportable procedure | | without a radiologist report and isused for image storage only | + + documented in this encounter Visit Diagnoses + + | Diagnosis | + + | Diagnosis unknown Other unknown and unspecified cause of morbidity or mortality | + + documented in this encounter"
--- OUTSIDE RECORDS SUMMARY | ~2020-05-14 | XMS | Encounter Summary ---
Demographics + + + | Address | [address] | | | [place] [address] | + + + | Home Phone | | + + + | Preferred Language | Unknown | + + + | Marital Status | | + + + | Mu-Ism Affiliation | Unknown | + + + | Race | Unknown | + + + | Ethnic Group | Unknown | + + + Author + + + | Author | [facility] | | | and [place] | + + + | Organization | [facility] | | | and [...] Team Providers + +------+ + | Care Training Personnel Supervisor Name | Role | Phone | + +------+ + | Anthony Atkins DO | PCP | | + +------+ + Encounter Details +--------+ + + + + | Date | Type | Department | Care Team | Description | +--------+ + + + + | 10/21/ | Orders Only | [facility] | Conversion | | | 2013 | | [facility] [place] | Transaction, | | | | | [address] | Provider Unknown | | | | | [address] [place], [place] | | | | | | [phone] | (Fax) | | | | | [phone] | | | +--------+ + + + [...] | EXTERNAL LAB: CBC | Routin | 10/21/2014 | | Results for this | | | e | 12:00 AM | | procedure are in the | | | | PST | | results section. | + +--------+ + + + | B TYPE NATRIURETIC | Routin | 10/21/2014 | | Results for this | | PEPTIDE | e | 12:00 AM | | procedure are in the | | | | PST | | results section. | + +--------+ + + + | MAGNESIUM | Routin | 10/21/2014 | | Results for this | | | e | 12:00 AM | | procedure are in the | | | | PST | | results section. | + +--------+ + + + | COMPREHENSIVE | Routin | 10/21/2014 | | Results for this | | METABOLIC PANEL | e | 12:00 AM | | procedure are in the | | | | PST | | results section. | + +--------+ + + + documented in this encounter Results External Lab: CBC (10/21/2014 12:00 AM PST) + + + + + + | Component | Value | Ref Range | Performed | Pathologist | | | | | At | Signature | + + + + + + | WBC | 7.8 | 4.5 - 11.0 10 | EXTERNAL | | | | | | LAB | | + + + + + + | Non- | 3.73 (A) | 3.8 - 5.1 10 | EXTERNAL | | | Red Blood | | | LAB | | | Cells | | | | | | Counted | | | | | + + + + + + | Hemoglobin | 10.7 (A) | 12.0 - 16.0 | EXTERNAL | | | | | g/dL | LAB | | + + + + + + | Hematocrit, | 32.1 (A) | 35 - 45 % | EXTERNAL | | | POC | | | LAB | | + + + + + + | MCV | 86.0 | 81 - 99 fL | EXTERNAL | | | | | | LAB | | + + + + + + | MCH | 29 | 27 - 33 pg | EXTERNAL | | | | | | LAB | | + + + + + + | MCHC | 33 | 30 - 36 g/dL | EXTERNAL | | | | | | LAB | | + + + + + + | Platelet | 210 | 140 - 440 K/ L | EXTERNAL | | | Count | | | LAB | | | Plasma | | | | | + + + + + + | RDW-CV | | % | EXTERNAL | | | | | | LAB | | + + + + + + | MPV | | fL | EXTERNAL | | | | | | LAB | | + + + + + + | Differentia | | | EXTERNAL | | | l Type | | | LAB | | + + + + + + | % Segmented | | % | EXTERNAL | | | | | | LAB | | | Neutrophils | | | | | + + + + + + | % | | % | EXTERNAL | | | Lymphocytes | | | LAB | | + + + + + + | % Monocytes | | % | EXTERNAL | | | | | | LAB | | + + + + + + | % | | % | EXTERNAL | | | Eosinophils | | | LAB | | + + + + + + | % Basophils | | % | EXTERNAL | | | | | | LAB | | + + + + + + | Absolute | | / L | EXTERNAL | | | Segmented | | | LAB | | | Neutrophils | | | | | + + + + + + | Absolute | | / L | EXTERNAL | | | Lymphocytes | | | LAB | | + + + + + + | Absolute | | / L | EXTERNAL | | | Monocytes | | | LAB | | + + + + + + | Absolute | | / L | EXTERNAL | | | Eosinophils | | | LAB | | + + + + + + | Absolute | | / L | EXTERNAL | | | Basophils | | | LAB | | + + + + + + + + | Specimen | + + | Blood specimen | | (specimen) | + + + +---------+ + + | Performing | Address | City/State/Zipcode | Phone Number | | Organization | | | | + +---------+ + + | EXTERNAL LAB | | | | + +---------+ + + B Type Natriuretic Peptide (10/21/2014 12:00 AM PST) + + + + + + | Component | Value | Ref Range | Performed | Pathologist | | | | | At | Signature | + + + + + + | BNP | 1,560 (A) | 0 - 100 pg/mL | EXTERNAL | | | | | [...] | | + +---------+ + + Magnesium (10/21/2014 12:00 AM PST) + +-------+ + + + | Component | Value | Ref Range | Performed | Pathologist | | | | | At | Signature | + +-------+ + + + | Magnesium | 2.2 | 1.7 - 2.5 mg/dL | EXTERNAL [...] + +---------+ + + Comprehensive Metabolic Panel (10/21/2014 12:00 AM PST) + + + + + + | Component | Value | Ref Range | Performed | Pathologist | | | | | At | Signature | + + + + + + | Glucose, | 96 | 70 - 100 mg/dL | EXTERNAL | | | Fasting | | | LAB | | + + + + + + | BUN | 36 (A) | 6 - 23 mg/dL | EXTERNAL | | | | | | LAB | | + + + + + + | Creatinine | 1.81 (A) | 0.70 - 1.11 | EXTERNAL | | | | | mg/dL | LAB | | + + + + + + | BUN/Creatin | 19.9 | 6.0 - 28.6 | EXTERNAL | | | ine Ratio | | | LAB | | + + + + + + | Calcium | 8.5 | 8.4 - 10.2 | EXTERNAL | | | | | mg/dL | LAB | | + + + + + + | Protein, | 6.8 | 6.0 - 8.0 g/dL | EXTERNAL | | | Total | | | LAB | | + + + + + + | Albumin | 3.9 | 3.5 - 5.0 | EXTERNAL | | | | | | LAB | | + + + + + + | Globulin | 2.9 | 1.8 - 3.5 | EXTERNAL | | | | | | LAB | | + + + + + + | A/G Ratio | 1.3 | 1.1 - 2.4 | EXTERNAL | | | | | | LAB | | + + + + + + | Bilirubin | 0.3 | 0.0 - 1.2 mg/dL | EXTERNAL | | | Total | | | LAB | | + + + + + + | ALP, | 79 | 30 - 128 | EXTERNAL | | | External | | | LAB | | + + + + + + | ALT | 7 | 7 - 52 U/L | EXTERNAL | | | | | | LAB | | + + + + + + | AST | 10 (A) | 13 - 39 U/L | EXTERNAL | | | | | | LAB | | + + + + + + | Na | 137 | 132 - 143 | EXTERNAL | | | | | mmol/L | LAB | | + + + + + + | K | 4.5 | 3.6 - 5.1 | EXTERNAL | | | | | mmol/L | LAB | | + + + + + + | Cl | 110 | 95 - 112 mmol/L | EXTERNAL | | | | | | LAB | | + + + + + + | CO2 | 20 | 19 - 31 mmol/L | EXTERNAL | | | | | | LAB | | + + + + + + | Anion Gap | 11.5 | 7 - 21 mmol/L | EXTERNAL | | | | | | LAB | | + + + + + + | Estimated | 27 | mg/dL | EXTERNAL | | | GFR [...]
--- OUTSIDE RECORDS SUMMARY | ~2020-05-14 | XMS | Encounter Summary ---
Demographics + + + | Address | [address] | | | [place] [address] | + + + | Home Phone | | + + + | Preferred Language | Unknown | + + + | Marital Status | | + + + | Yazidism Affiliation | Unknown | + + + | Race | Unknown | + + + | Ethnic Group | Unknown | + + + Author + + + | Author | [facility] | | | and [place] | + + + | Organization | [facility] | | [...] Team Providers + +------+ + | Care Boiler House Operator Name | Role | Phone | + [...] Required | | chronic | [address] | | | | | | congestive | [place] | | | | | | heart | [place], [place] | | | | | | failure, | [address] | | | | | | unspecified | Phone: | | | | | | congestive | [phone] | | | | | | heart | Fax: | | | | | | failure type | [phone] | | | | | | Anemia, [...] + + | 04/06/ | Hospital | [facility] | Curtis Guerrero, | Acute respiratory | | 2016 - | Encounter | [facility] | [address] | failure with hypoxia | | | | [address] [place] | [place] | (HCC) (Primary Dx); | | 04/09/ | | [place] [address] | [id number] | Acute on chronic | | 2015 | | [phone] | | congestive heart | | | | | Chirag Mae | failure, unspecified | | | | | MD Vikash [address] | congestive heart | | | | | [address] | failure type ([facility]); | | | | | [place] [address] | Shortness of breath; | | | | | [phone] | Anemia, unspecified | | | | | | type; Acute on | | | | | | chronic systolic | | | | | | congestive heart | | | | | | failure ([facility]); 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 Name/Age/: Alexsandra Hawkins 85 [...] check in at 8:00 am Contact information: [address] [place] [id number] RESULTS: NUCLEAR MEDICINE STRESS TEST REPORT Patient [...] is 29 %. Signed by:Valeriy Ceballos MD [facility] 04/07/2016, 12:54 04/08/2016 6:53 - Valeriy Ceballos MD Addenda Correction; overall left ventricular systolic function is moderately decreased. LVEF i s 40-45%. Signed by Valeriy Ceballos MD on 04/08/2016 6:53 Narrative & Impression [facility] ECHOCARDIOGRAM REPORT STUDY DATE: 04/06/2016 PATIENT [...] insufficiency. 5. Mildly thickened mitral valve with sdyh-ka-hnodivgx mitral valve regurgitation. 6. Mild mitral annular [...] Ratio: 13.3 Signed by: Valeriy Ceballos MD [facility] 04/06/2016 11:49 Process Development Technician: Narayan Butler CHAMP Results for ALEXSANDRA HAWKINS [...] of chest pain. She was seen at [facility] and transferred here for further cardiac [...] in a urgent care center or at [facility] to have renal function assessed and if she gains weight and she also needs to be seen relative to increasing doses of diuretic. I will have her followed by home health will see her following Dr. Scott's appo intment noting she is leaving to go to [facility] with her family until her follow- up appointment returning to this community on 04/19. She and her daughters have been aids counselor ed about her need over the [...] signed by: Evan Lopez MD, 04/09/2016 17:53 [facility] Portions of this chart may have been created with Aero Glass voice recognition software. Occasi onal wrong-word or [...] Product Code RBC Leukocytes Reduced UNIT # [id number] UNIT ABO O UNIT RH POS CROSSMATCH [...] valve insufficiency. Mildly thickened mitral valve with xutq-tc-bikwfggq mitral valve regurgita tion. Mild mitral annular [...] made to ensure accuracy; however, inadvertent computerized gel coat sprayer errors may be pre sent. Electronically signed by: Valeriy Ceballos MD 04/09/2016 6:52 Evan Parrish MD - 04/08/2016 11:03 AM PDTFormzulma tting of this note might be different from the original. [facility] PMG Hospitalist Progress Note Alexsandra Hawkins is [...] as outlined above. Evan Lopez 04/08/2016 11:03 [facility] Portions of this chart may have been created with Aero Glass voice recognition software. Occasi onal wrong-word or [...] valve insufficiency. Mildly thickened mitral valve with gsvn-md-xkkcyimj mitral valve regurgita tion. Mild mitral annular [...] made to ensure accuracy; however, inadvertent computerized gel coat sprayer errors may be pre sent. Electronically signed by: Valeriy Ceballos MD 04/08/2016 6:50 Evan Parrish MD - 04/07/2016 1:16 PM PDTForma tting of this note might be different from the original. [facility] PMG Hospitalist Progress Note Alexsandra Hawkins is [...] as outlined above. Evan Lopez 04/07/2016 13:16 [facility] Portions of this chart may have been created with Aero Glass voice recognition software. Occasi onal wrong-word or sound-alike substitutions may have occurred due to the inherent hinojosa itations of voice recognition software. Please read the chart carefully and recognize, using context, where these substitutions have occurred documented in this enc ounter H&P Notes Chirag Mae MD - 04/06/2016 10:16 AM PDT [facility] HISTORY AND PHYSICAL Pt. Name/Age/: Alexsandra Hawkins 85 y.o. 1930 Date of admission: 04/06/2016 Admitting Physician: Chirag Mae MD Primary Care Provider: Anthony Atkins DO CHIEF COMPLAINT: Shortness of breath HISTORY OF PRESENT ILLNESS: This is a 85 y.o. female with a history of CHF who is taken in transfer from [facility]. Patient developed shortness of breath yesterday, which was associated with diaphoresis. She denied chest pain, lower extremity edema or nausea or vomiting. She was seen in the ER at [facility] and was transferred here for a higher level of care as they had no ICU beds. On further discussion, the patient had a CHF exacerbation several years ago ( she could not determine the timing of the event) and was sent to [facility] for care. She continues to see Ca [...] signed by: Chirag Mae MD 04/06/2016 10:16 [facility] Portions of this chart may have been created with Aero Glass voice recognition software. Occasi onal wrong-word or [...] heart failure, smoker. She was admitted to [facility] on 04/06/2016 for CHF (congestive heart failur e) . She was known to have history of heart failure and was seen by networking administrator in [facility], last time 2 years ago. She was in her usual state of health until 04/05/16 when she had th e acute onset of shortness of breath or staying at a hotel of [employer]. She was se en at the ED of [facility] in [place] and was transferred to [facility]. It was noted that her BNP is [...] a sedentary lifestyle and enjoys gambling at [employer]. She been smoking between half to 1 [...] ECGs available Confirmed by GAURI DAVILA MD ([id number]) on 04/07/2016 6:58:04 AM Troponin I Collection [...] insufficiency. Mildly thicken ed mitral valve with wlbn-dr-mnhoqgfg mitral valve regurgitation. Mild mitral annular calci [...] patient. Electronically signed by: Valeriy Ceballos MD [facility] 04/07/2016 7:21 Portions of this chart may have been created with Aero Glass voice recognition software. Occasi onal wrong-word or [...] 04/10/16. 3. Modified independent in room and hauqe by 04/11/16 STRATEGY TO ACHIEVE GOALS: Monitor [...] several years ago and was treated at [facility]. She has been stable sin ce then. [...] lob and wihtout MAS assist. Level of Whitman : supervision required Assistive Device: none Distance (feet): 50 feet Impairments: impaired balance Stairs Transfers Sit-Stand, Level of Whitman: independent Stand-Sit, Level of Whitman: independent Gjj-Ctjdg-Xax, Assistive Device: 4 wheeled walker (4WW) Safety Issues: balance decreased during turns Impairments: impaired balance (Impaired activity tolerance) Bed Mobility Assistive Device: none Supine to Sit, Level of Whitman: independent Sit to Supine, Level of Whitman: independent Impairments: impaired balance (decreased functional activity tolerance) Wheelchair Mobility Balance Therapeutic Exercise Functional Endurance ROM ROM Testing Results: no range of motion deficits identified Strength Strength Testing Results: no strength deficits were identified Coordination Vision Muscle Tone STG GOALS Bed Mobility Goal, Activity Type: all bed mobility activities Whitman Level: independent Assistive Device: none Time to Achieve: 5 - 7 days Goal Status: met Transfer Training Goal, Activity Type: sit to stand/stand to sit Whitman Level: modified independence Assistive Device: 4 wheeled walker (4WW) Time to Achieve: 5 - 7 days Goal Status: met Gait Training Goal, Whitman Level: modified independence Assistive Device: 4 wheeled walker (4WW) Distance: 150 Time to Achieve: 5 - 7 days Goal Status: met LTG GOALS FIM: Assessment: doing better with activity. She is a very I woman. Daughter is hopeful to lalitha e her home with her to [place] for a short stay. Physical Therapy Anticipated [...] Goal Evaluation: SD-Patient admitted for CHF from [facility] yesterday. BNP at time of admit [...] several years ago and was treated at [facility]. She has been stable since then. She [...] from multiple contributors. Transfers Sit-Stand, Level of Whitman: modified independence Stand-Sit, Level of Whitman: modified independence Qdq-Vhtab-Www, Assistive Device: 4 wheeled walker (4WW) Toilet, Level of Whitman: modified independence Toilet, Assistive Device: 4 wheeled [...] admitted for CHF (congestive heart failure ) ([facility]) [I50.9] COPD (chronic obstructive pulmonary disease) ([facility]) [J44.9]. Tig Welder visit is in response to an electronic spiritual care consult request. Spiritual Evaluation: Patient requested negative assembler visit and prayer. She shared that she has Christian background, n ow identifies as non-hindu and sometimes attend the service. She is a member of the [employer]. 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 She prays three times each day and has a strong travis in God. Three of her seven children are still living. Patient shared numerous stories of her family and wa nted prayer for her health. Spiritual Interventions: Manager Of Drilling listened actively, engaged in supportive conversation and affirmed her travis journ ey. Manager Of Drilling prayed for her health. Spiritual Outcomes: Patient was grateful for the negative assembler visit and invited additional negative assembler visits. Spiritual Goals/Follow up: Manager Of Drilling will visit patient as needed or requested. If any additional spiritual issues damian e, please contact the negative assembler. lan of Care - Melinda Escobar, PT [...] several years ago and was treated at [facility]. She has been stable sin ce then. [...] be from multiple contributors. Gait Level of Whitman : supervision required Assistive Device: 4 wheeled walker (4WW) Distance (feet): 100 Impairments: impaired balance Transfers Sit-Stand, Level of Whitman: supervision required, verbal cues required Stand-Sit, Level of Whitman: supervision required, verbal cues required Ccb-Roeka-Ceq, Assistive Device: 4 wheeled walker (4WW) Safety Issues: balance decreased during turns Impairments: impaired balance (Impaired activity tolerance) Bed Mobility Assistive Device: bed rails Supine to Sit, Level of Whitman: minimum assist (75% patient effort) Sit to Supine, Level of Whitman: minimum assist (75% patient effort) Impairments: impaired balance (decreased functional activity tolerance) ROM ROM Testing Results: no range of motion deficits identified Strength Strength Testing Results: no strength deficits were identified STG GOALS Bed Mobility Goal, Activity Type: all bed mobility activities Whitman Level: independent Assistive Device: none Time to Achieve: 5 - 7 days Goal Status: not addressed Transfer Training Goal, Activity Type: sit to stand/stand to sit Whitman Level: modified independence Assistive Device: 4 wheeled walker (4WW) Time to Achieve: 5 - 7 days Goal Status: progressing toward goal Gait Training Goal, Whitman Level: modified independence Assistive Device: 4 wheeled [...] several years ago and was treated at [facility]. She has been stable since then. She [...] be from multiple contributors. Gait Level of Whitman : contact guard assist Assistive Device: 2 wheeled walker (FWW) Distance (feet): 30 Impairments: impaired balance (impaired activity tolerance) Transfers Sit-Stand, Level of Whitman: contact guard assist Stand-Sit, Level of Whitman: contact guard assist Jbu-Uswoj-Pnl, Assistive Device: 2 wheeled walker (FWW) Safety Issues: balance decreased during turns Impairments: impaired balance (Impaired activity tolerance) Bed Mobility Assistive Device: bed rails Supine to Sit, Level of Whitman: minimum assist (75% patient effort) Sit to Supine, Level of Whitman: minimum assist (75% patient effort) Impairments: impaired balance (decreased functional activity tolerance) ROM ROM Testing Results: no range of motion deficits identified Strength Strength Testing Results: no strength deficits were identified STG GOALS Bed Mobility Goal, Activity Type: all bed mobility activities Whitman Level: independent Assistive Device: none Time to Achieve: 5 - 7 days Goal Status: new, progressing toward goal Transfer Training Goal, Activity Type: sit to stand/stand to sit Whitman Level: modified independence Assistive Device: 4 wheeled walker (4WW) Time to Achieve: 5 - 7 days Goal Status: new, progressing toward goal Gait Training Goal, Whitman Level: modified independence Assistive Device: 4 wheeled [...] Escobar, PT, 04/06/2016 17:52 lan of [facility] Geovanna Funk, SENIOR LINUX UNIX ADMINISTRATOR - 04/06/2016 2:03 PM PDTProblem: Patient Care [...] Outcome: Improving Goal Evaluation: Patient arrived from [facility] with CHF. She does smoke "but not a lot". She does not take any respiratory medications at home. She did not feel any improvement in her breathing with the one she received. Oxygenation well on 2 lpm [place]. She understands if she wants a breathing treatment that she should call and that we would periodically assess her. lan of [facility] Yasemin Marquez Rafat - 04/06/2016 11:50 AM PDTDC Planning: Spoke with Alexsandra at her bedside regarding her discharge plan. [place]. She lives in a one level home. She no longer drives. 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 Alexsandra speaks 12 different [place] merican languages, Maltese and some Hong Konger. She has a daughter Amado that lives in town in [place] who visits her each day. Amado does all her shopping, transports her to appointments. Alexsandra has one grab bar in the bathroom and she also owns a shower chair. She has a 4 whee l walker that she stores at the [place] and only uses it when she is there. She does not have a DME preference. Her PCP is Dr. Whitney at [facility] and she uses [facility] pharmacy. Alexsandra refused HH and a SNF. She states her daughter gives her all the help she needs and she is also going on vacation to [place] to see family on April 13. Electronically [...] [address] | [place] | [phone] | | [facility] | | [address] | | | - LABORATORY | | [...] - 1.030 | [facility] | | | [place], | | | [facility] | | [...] [address] | [place] | [phone] | | [facility] | | [address] | | | - LABORATORY | | [...] + | [facility] | [address] | [place] | [phone] | | [facility] | | [address] | | | - LABORATORY | | [...] mL/min/1.73m2 | [facility] | | | [place] | RATE,ESTIMATED | | MEDICAL | | | | mL/min/1.88y5Hwhd than | | CENTER - | | [...] [address] | [place] | [phone] | | [facility] | | [address] | | | - LABORATORY | | [...] + | [facility] | [address] | [place] | [phone] | | [facility] | | [address] | | | - LABORATORY | | [...] + + + | UNIT # | [id number] | | [facility] | | | | [...] St | [place] | | | [facility] | | [address] | | | - BLOOD BANK | [...] St | [place] | | | [facility] | | [address] | | | - BLOOD BANK | [...] ST. | [address] | [place], [place] | | | [facility] | | [address] | | | - BLOOD BANK | [...] St | [place] | | | [facility] | | [address] | | | - BLOOD BANK | [...] St | [place] | | | [facility] | | [address] | | | - BLOOD BANK | [address] | [place] | [phone] | | [facility] | | [address] | | | - LABORATORY | | [...] 106 | 70 - 109 mg/dL | [facility] | | | | | | [facility] | | | | | | MEDICAL | | | | | | CENTER - | | | | | | LABORATORY | | + + + + + + | BUN | 55 (H) | 7 - 18 mg/dL | [facility] | | | | | | [facility] | | | | | | MEDICAL | | | | | | CENTER - | | | | | | LABORATORY | | + + + + + + | Creatinine | 2.50 (H) | 0.60 - 1.30 | [facility] | | | | | mg/dL | [facility] | | | | | | MEDICAL | | | | | | CENTER - | | | | | | LABORATORY | | + + + + + + | eGFR if not | 18 (L)Comment: | >=60 | [facility] | | | | GLOMERULAR FILTRATION | mL/min/1.73m2 | [facility] | | | [place] | RATE,ESTIMATED | | MEDICAL | | | | mL/min/1.15h6Ihgn than | | CENTER - | | [...] + | [address] [facility] | [address] | [place] | [phone] | | [facility] | | [address] | | | - LABORATORY | | [...] ST. | [address] | [place], [place] | [phone] | | [facility] | | [address] | | | - LABORATORY | | [...] + | [facility] | [address] | [place] | [phone] | | [facility] | | [address] | | | - LABORATORY | | [...] + | [facility] | [address] | [place] | [phone] | | [facility] | | [address] | | | - LABORATORY | | [...] [address] | [place] | [phone] | | [facility] | | [address] | | | - LABORATORY | | [...] + | [facility] [facility] | [address] | [place] | [phone] | | [facility] | | [address] | | | - LABORATORY | | [...] | | Signed by: Valeriy Ceballos MD [facility] 04/07/2016, 12:54 | | + + + [...] AKILA | | | | | | [facility] [...] [address] | [place] | [phone] | | [facility] | | [address] | | | - LABORATORY | | [...] mL/min/1.73m2 | [facility] | | | [place] | RATE,ESTIMATED | | MEDICAL | | | | mL/min/1.79g4Idlj than | | CENTER - | | [...] ST. | [address] | [place], [place] | [phone] | | [facility] | | [address] | | | - LABORATORY | | [...] | | | | | | [employer] | | | | | [...] ST. | [address] | [place] | [phone] | | [facility] | | [address] | | | - LABORATORY | | [...] | | | | | | [employer] | | | | | [...] + | [address] [facility] | [address] | [place] | [phone] | | [facility] | | [address] | | | - LABORATORY | | [...] | | | | GAURI DAVILA MD ([id number]) | | | | | | on [...] Performed At | + + + | [facility] ECHOCARDIOGRAM REPORT | | | STUDY [...] thickened mitral valve with | | | xkce-rx-ssrvducl mitral valve regurgitation. 6. Mild mitral | [...] by: Valeriy | | | MD Tucker [facility] 04/06/2016 11:49 Process Development Technician: Narayan | | | Narum, RDCS, RDMS, [...] | | Basophils | | K/uL | [facility] | | | | | | MEDICAL [...] + | [facility] | [address] | [place] | [phone] | | [facility] | | [address] | | | - LABORATORY | | [...] | | | | | | [employer] | | | | | [...] + | [facility] | [address] | [place] | [phone] | | [facility] | | [address] | | | - LABORATORY | | [...] | | | | | | [facility] | | | | | | [...] [address] | [place] | [phone] | | [facility] | | [address] | | | - LABORATORY | | [...] | | | | | | [facility] | | | | | | MEDICAL [...] | | GLOMERULAR FILTRATION | mL/min/1.73m2 | [facility] | | | [place] | RATE,ESTIMATED | | MEDICAL | | | | mL/min/1.65b3Yyoq than | | CENTER - | | [...] | | | | | mg/dL | [facility] | | | | | | MEDICAL [...] [address] | [place] | [phone] | | [facility] | | [address] | | | - LABORATORY | | [...] ST. | [address] | [place], [place] | [phone] | | [facility] | | [address] | | | - LABORATORY | | [...] | | | | | | Starting [facility] 04/07/16 at 1231, For | | [...] | | | | | | Starting [facility] 04/07/16 at 0823, For | | | | | | | 1 dose, Nuclear Medicine | | | | | | + +-------+ + +---+---+ +---+---+ | | | +---+---+ documented in this encounter
--- OUTSIDE RECORDS SUMMARY | ~2020-05-14 | XMS | Encounter Summary ---
Demographics + + + | Address | [address] | | | [place] [address] | + + + | Home Phone | | + + + | Preferred Language | Unknown | + + + | Marital Status | | + + + | Mandaeism Affiliation | Unknown | + + + | Race | Unknown | + + + | Ethnic Group | Unknown | + + + Author + + + | Author | [facility] | | | and [place] | + + + | Organization | [facility] | | | [...] Team Providers + +------+ + | Care Miner Operator Name | Role | Phone | + +------+ + | Anthony Atkins DO | PCP | | + +------+ + Reason for Visit +--------+--------+ + | Reason | Onset | Comments | | | Date | | +--------+--------+ + | Other | 04/15/ | question about patient follow up | | | 2015 | | +--------+--------+ + Encounter Details +--------+ + + + + | Date | Type | Department | Care Team | Description | +--------+ + + + + | 04/15/ | Telephone | [facility] | Valeriy Ceballos, | Other (question | | 2015 | | CARDIOLOGY [address] | about patient follow | | | | [place], | [place], | up) | | | | [place] [address] | [place] [address] | | | | | [phone] | [phone] | | | | | | | [...] this encounter Miscellaneous Notes Telephone Encounter - Cristal Hudson RN - 04/17/2016 8:29 AM PDTClarification, I was no t able to convince her otherwise. ...........................................Cristal Hudson RN on 04/17/16 at 8:30 elephone Encounter - Valeriy Ceballos MD - 04/16/2016 2:54 PM PDTThank fredrick. elephone Encounter - Cristal Hudson RN - 016 2:32 PM PDTSugayathri has declined to keep her appointment with Dr Scott on Wednesday, she sta tammie that her PCP told her that she does not have to see a [employer]ator. I was able to convi nce her otherwise. ...........................................Cristal Hudson RN on 6 at 14:34 elephone Encounter - Cristal Hudson RN - 04/15/2016 2:52 PM PDTDori Alexsandra's daughter called, she is con cerned that her mother is declining to keep her appointment with Dr Scott on 04/20/16. Dori mendez eports that after she was discharged from the hospital here she had to take her to [facility] for an infected IV site. They gave her antibiotics and asked her to return the next day . When she returned the next day they advised that she stay in the hospital due to her labs being so bad. Dori states that Alexsandra refused admission. She reports that Alexsandra has now seen Dr Atkins and he has advised her that she is doing well and that there is no need fo r her to follow up with Dr Scott at all. Dori is trying not to speak poorly about Dr Atkins but she does not agree with that. She wonders if Dr Scott would call him to discuss the issu es. I advised her that I would try to call Alexsandra first and then go from there. Left alyssa britany at home number for patient to return my call. ........................................... Cristal Hudson RN on 04/15/16 at 14:56 documented in this encounter Plan of Treatment Not on filedocumented as of this encounter Visit Diagnoses Not on filedocumented in this encounter"
--- OUTSIDE RECORDS SUMMARY | ~2020-05-14 | XMS | Encounter Summary ---
Demographics + + + | Address | [address] | | | [place] [address] | + + + | Home Phone | | + + + | Preferred Language | Unknown | + + + | Marital Status | | + + + | Jew Affiliation | Unknown | + + + | Race | Unknown | + + + | Ethnic Group | Unknown | + + + Author + + + | Author | [facility] | | | and [place] | + + + | Organization | [facility] | | | and [...] Team Providers + +------+ + | Care Principal Developer Name | Role | Phone | + [...] | | CONVERSION [address] | DO [address] | | | | | [address] | [place] [address] | | | | | [place], [place] | [phone] | | | | | [address] | | | | | | [phone] | | | +--------+ + + + [...] 1.72 cm AR Dec | | | [place]: 2.10 m/s2 AR Dec Time: 2007.83 ms [...] MV A Mc: 1.14 m/s MV Dec [place]: | | | 3.05 m/s2 MV DecT: [...] RV s': 0.10 m/s | | | Content Strategist: SYLVIE Authenticated by: Celia Alvarezfrisco Report | | | Date/Time: 12-08-2018 8:58:41 | | + + + + + | Procedure Note | + + | Hector, Rad Conversion - 06/22/2019 1:34 PM PDT Patient Name: Latrell ELLER of | | : 1930 Performing Physician: Celia | | Kimfrisco INDICATIONS------ | | -----CHF CONCLUSIONS 1. The [...] cmLVPWd: | | 1.03 cmLVOT Area: 3.01 [id number] Diam: 1.95 cm%FS: 19.29 %EF(Teich): 40.77 | [...] mlLAESV Index (A-L): 63.28 ml/m2LAAs A2C: 25.31 [id number] A-L A2C: 94.47 mlLALs | | A2C: 5.75 cmLAAs A4C: 24.21 gz3FNOXR A-L A4C: 88.38 mlLALs A4C: 5.63 cmRAAs: | | 18.06 [id number] A-L: 54.89 mlRAESV MOD: 53.35 mlRALs: 5.04 cmTAPSE: 1.72 cmAR Dec | | [place]: 2.10 m/s2AR Oct Time: msAR maxP.36 mmHgAR PHT: 582.27 msAR | | Vmax: 4.22 m/Claudia maxP.21 mmHgAV meanP.61 mmHgAV Vmax: 1.43 m/Claudia Vmean: | | 1.02 m/Claudia VTI: 31.88 cmAVA Vmax: 2.00 cm2AVA (VTI): 2.02 fz3PRLA (Vmax): 0.00 | | cm2/m2AVAI (VTI): 0.00 cm2/m2LVOT maxP.63 mmHgLVOT meanP.14 mmHgLVSI | | Dopp: 44.29 ml/m2LVSV Dopp: 64.67 mlLVOT Vmax: 0.95 m/sLVOT Vmean: 0.68 m/sLVOT | | VTI: 21.45 cmMV A Mc: 1.14 m/sMV Dec [place]: 3.05 m/s2MV DecT: 234.57 msMV E | | Mc: 0.71 m/sMV E/A Ratio: 0.62MV PHT: 68.02 msMVA By PHT: 3.23 em7Wnnvxg e': | | 0.02 m/sSeptal E/e': 27.68Lateral e': 0.02 m/sLateral E/e': 28.40RAP: 5 | | mmHgRVSP: 42.05 mmHgTR maxP.05 mmHgTR Vmax: 3.04 m/sRV s': 0.10 m/s | | Content Strategist: SYLVIEAuthenticated by: Celia Tidwell Date/Time: 12-08-2018 8:58:41 [...] | |TAPSE: 1.72 cm | |AR Dec [place]: 2.10 m/s2 | |AR Dec Time: 2007.83 [...] A Mc: 1.14 m/s | |MV Dec [place]: 3.05 m/s2 | |MV DecT: 234.57 ms [...] |RV s': 0.10 m/s | | | |Content Strategist: DBS | |Authenticated by: Celia Hoffman | [...]
--- OUTSIDE RECORDS SUMMARY | ~2020-05-14 | XMS | Encounter Summary ---
Demographics + + + | Address | [address] | | | [place] [address] | + + + | Home Phone | | + + + | Preferred Language | Unknown | + + + | Marital Status | | + + + | Taoism Affiliation | Unknown | + + + | Race | Unknown | + + + | Ethnic Group | Unknown | + + + Author + + + | Author | [facility] | | | and [place] | + + + | Organization | [facility] | | | [...] Team Providers + +------+ + | Care Poker In Name | Role | Phone | + [...] | CARDIOLOGY [address] | DO [address] | | | | | [place], | [place] [address] | | | | | [place] [address] | [phone] | | | | | [phone] | | | +--------+ + + + [...] 04/08/2016 8:50 AM PDTPatient was seen in [facility] Scott and has been scheduled for a hospital follow-up appointment with Dr. Scott on 04-20-16. Patient has [employer] as her 2nd insurance. Called [facility], office of Dr. 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 documented in this encou nter Plan of Treatment Not on filedocumented as of this encounter Visit Diagnoses Not on filedocumented in this encounter"
--- OUTSIDE RECORDS SUMMARY | ~2020-05-14 | XMS | Encounter Summary ---
Demographics + + + | Address | [address] | | | [place] [address] | + + + | Home Phone | | + + + | Preferred Language | Unknown | + + + | Marital Status | | + + + | Baptist Affiliation | Unknown | + + + | Race | Unknown | + + + | Ethnic Group | Unknown | + + + Author + + + | Author | [facility] | | | and [place] | + + + | Organization | [facility] | | | [...] Team Providers + +------+ + | Care Agricultural Services Director Name | Role | Phone | [...] [place] | | | | | | [address] | | | | | | [phone] | | | +--------+ + + + [...] +-------+ + + + | LVEF-TTE | 50 | | | | | TRANSTHORAC | | | | | | IC ECHO | | | | | + +-------+ + + + documented in this encounter Visit Diagnoses Not on filedocumented in this encounter"
--- OUTSIDE RECORDS SUMMARY | ~2020-05-14 | XMS | Encounter Summary ---
Demographics + + + | Address | [address] | | | [place] [address] | + + + | Home Phone | | + + + | Preferred Language | Unknown | + + + | Marital Status | | + + + | Episcopal Affiliation | Unknown | + + + | Race | Unknown | + + + | Ethnic Group | Unknown | + + + Author + + + | Author | [facility] | | | and [place] | + + + | Organization | [facility] | | | [...] Team Providers + +------+ + | Care Rehabilitation Services Aide Name | Role | Phone | + +------+ + | Anthony Atkins DO | PCP | | + +------+ + Encounter Details +--------+ + + + + | Date | Type | Department | Care Team | Description | +--------+ + + + + | 07/11/ | Orders Only | [facility] | Conversion | | | 2013 | | NEPRHOLOGY [place] | Transaction, | | | | | [address] | Provider Unknown | | | | | [address] [place], [place] | | | | | | [address] | (Fax) | | | | | [phone] | | | +--------+ + + + [...] + | PARATHYROID HORMONE, | Routin | 07/11/2014 | | Results for this | | INTACT AND CALCIUM | e | 12:00 AM | | procedure are in the | | | | PDT | | results section. | + +--------+ + + + | PROTEIN/CREATININE | Routin | 07/11/2014 | | Results for this | | RATIO, URINE | e | 12:00 AM | | procedure are in the | | | | PDT | | results section. | + +--------+ + + + | PROTEIN, URINE, | Routin | 07/11/2014 | | Results for this | | RANDOM | e | 12:00 AM | | procedure are in the | | | | PDT | | results section. | + +--------+ + + + | CREATININE, URINE, | Routin | 07/11/2014 | | Results for this | | RANDOM | e | 12:00 AM | | procedure are in the | | | | PDT | | results section. | + +--------+ + + + | URIC ACID | Routin | 07/11/2014 | | Results for this | | | e | 12:00 AM | | procedure are in the | | | | PDT | | results section. | + +--------+ + + + | PHOSPHORUS | Routin | 07/11/2014 | | Results for this | | | e | 12:00 AM | | procedure are in the | | | | PDT | | results section. | + +--------+ + + + | MAGNESIUM | Routin | 07/11/2014 | | Results for this | | | e | 12:00 AM | | procedure are in the | | | | PDT | | results section. | + +--------+ + + + | COMPREHENSIVE | Routin | 07/11/2014 | | Results for this | | METABOLIC PANEL | e | 12:00 AM | | procedure are in the | | | | PDT | | results section. | + +--------+ + + + documented in this encounter Results Parathyroid Hormone, Intact and Calcium (07/11/2014 12:00 AM PDT) + +-------+ + + + | Component | Value | Ref Range | Performed | Pathologist | | | | | At | Signature | + +-------+ + + + | PTH Intact | 62.84 | | EXTERNAL | | | | | | LAB | | + +-------+ + + + | Calcium | 8.6 | | EXTERNAL | | | | [...] | | | + +---------+ + + Protein/Creatinine Ratio, Urine (07/11/2014 12:00 AM PDT) + +-------+ + + + | Component | Value | Ref Range | Performed | Pathologist | | | | | At | Signature | + +-------+ + + + | Protein/Cre | 437.5 | | EXTERNAL | | | at Ratio | | | LAB | | + +-------+ + + + + + | Specimen | + + | Urine specimen | | (specimen) | + + + +---------+ + + | Performing | Address | City/State/Zipcode | Phone Number | | Organization | | | | + +---------+ + + | EXTERNAL LAB | | | | + +---------+ + + Protein, Urine, Random (07/11/2014 12:00 AM PDT) + +-------+ + + + | Component | Value | Ref Range | Performed | Pathologist | | | | | At | Signature | + +-------+ + + + | Protein, | 28 | | EXTERNAL | | | Urine | | | LAB | | + +-------+ + + + + + | Specimen | + + | Urine specimen | | (specimen) | + + + +---------+ + + | Performing | Address | City/State/Zipcode | Phone Number | | Organization | | | | + +---------+ + + | EXTERNAL LAB | | | | + +---------+ + + Creatinine, Urine, Random (07/11/2014 12:00 AM PDT) + +-------+ + + + | Component | Value | Ref Range | Performed | Pathologist | | | | | At | Signature | + +-------+ + + + | Creatinine, | 64 | | EXTERNAL | | | 24H Ur | | | LAB | | + +-------+ + + + + + | Specimen | + + | Urine specimen | | (specimen) | + + + +---------+ + + | Performing | Address | City/State/Zipcode | Phone Number | | Organization | | | | + +---------+ + + | EXTERNAL LAB | | | | + +---------+ + + Uric Acid (07/11/2014 12:00 AM PDT) + +-------+ + + + | Component | Value | Ref Range | Performed | Pathologist | | | | | At | Signature | + +-------+ + + + | Uric Acid | 7.5 | | EXTERNAL | | | | [...] | | + +---------+ + + Phosphorus (07/11/2014 12:00 AM PDT) + +-------+ + + + | Component | Value | Ref Range | Performed | Pathologist | | | | | At | Signature | + +-------+ + + + | PHOSPHORUS | 4.8 | mg/dL | EXTERNAL | | | [...] | | + +---------+ + + Magnesium (07/11/2014 12:00 AM PDT) + +-------+ + + + | Component | Value | Ref Range | Performed | Pathologist | | | | | At | Signature | + +-------+ + + + | Magnesium | 2.3 | mg/dL | EXTERNAL | | | [...] + +---------+ + + Comprehensive Metabolic Panel (07/11/2014 12:00 AM PDT) + +-------+ + + + | Component | Value | Ref Range | Performed | Pathologist | | | | | At | Signature | + +-------+ + + + | Glucose, | 91 | mg/dL | EXTERNAL | | | Fasting | | | LAB | | + +-------+ + + + | BUN | 35 | mg/dL | EXTERNAL | | | | | | LAB | | + +-------+ + + + | Creatinine | 1.90 | mg/dL | EXTERNAL | | | | | | LAB | | + +-------+ + + + | BUN/Creatin | 18.4 | | EXTERNAL | | | ine Ratio | | | LAB | | + +-------+ + + + | Calcium | 8.6 | mg/dL | EXTERNAL | | | | | | LAB | | + +-------+ + + + | Protein, | 6.7 | g/dL | EXTERNAL | | | Total | | | LAB | | + +-------+ + + + | Albumin | 3.8 | | EXTERNAL | | | | | | LAB | | + +-------+ + + + | Globulin | 2.9 | | EXTERNAL | | | | | | LAB | | + +-------+ + + + | A/G Ratio | 1.3 | | EXTERNAL | | | | | | LAB | | + +-------+ + + + | Bilirubin | 0.4 | mg/dL | EXTERNAL | | | Total | | | LAB | | + +-------+ + + + | ALP, | 83 | | EXTERNAL | | | External | | | LAB | | + +-------+ + + + | ALT | 7 | U/L | EXTERNAL | | | | | | LAB | | + +-------+ + + + | AST | 10 | U/L | EXTERNAL | | | | | | LAB | | + +-------+ + + + | Na | 135 | mmol/L | EXTERNAL | | | | | | LAB | | + +-------+ + + + | K | 5.0 | mmol/L | EXTERNAL | | | | | | LAB | | + +-------+ + + + | Cl | 108 | mmol/L | EXTERNAL | | | | | | LAB | | + +-------+ + + + | CO2 | 21 | mmol/L | EXTERNAL | | | | | | LAB | | + +-------+ + + + | Anion Gap | 11.0 | mmol/L | EXTERNAL | | | | | | LAB | | + +-------+ + + + | Estimated | 25 | mg/dL | EXTERNAL | | | [...]
--- OUTSIDE RECORDS SUMMARY | ~2020-05-14 | XMS | Encounter Summary ---
Demographics + + + | Address | [address] | | | [place] [address] | + + + | Home Phone | | + + + | Preferred Language | Unknown | + + + | Marital Status | | + + + | Jew Affiliation | Unknown | + + + | Race | Unknown | + + + | Ethnic Group | Unknown | + + + Author + + + | Author | [facility] | | | and [place] | + + + | Organization | [facility] | | | [...] Team Providers + +------+ + | Care Engineering Technical Specialist Name | Role | Phone | [...] | | | | | | [place] | | | | | | [address] | | | | | | [phone] | | | +--------+ + + + [...]
--- OUTSIDE RECORDS SUMMARY | ~2020-05-14 | XMS | Encounter Summary ---
Demographics + + + | Address | [address] | | | [place] [address] | + + + | Home Phone | | + + + | Preferred Language | Unknown | + + + | Marital Status | | + + + | Catholic Affiliation | Unknown | + + + | Race | Unknown | + + + | Ethnic Group | Unknown | + + + Author + + + | Author | [facility] | | | and [place] | + + + | Organization | [facility] | | | and [...] Team Providers + +------+ + | Care Buff Wheel Fabricator Name | Role | Phone | + [...] [place] | | | | | | [address] | | | | | | [phone] | | | +--------+ + + + [...]
--- OUTSIDE RECORDS SUMMARY | ~2020-05-14 | XMS | Encounter Summary ---
Demographics + + + | Address | [address] | | | [place] [address] | + + + | Home Phone [...] + | Author | [facility] | | | and [place] | + + + | Organization | [facility] | | | and [...] Team Providers + +------+ + | Care Track Liner Operator Name | Role | Phone | + +------+ + | Anthony Atkins DO | PCP | | + +------+ + Encounter Details +--------+ + + + + | Date | Type | Department | Care Team | Description | +--------+ + + + + | 04/10/ | Hospital | [facility] | Sebastián Julianna, | | | 2016 | Encounter | 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
--- OUTSIDE RECORDS SUMMARY | ~2020-05-14 | XMS | Encounter Summary ---
Demographics + + + | Address | [address] | | | [place] [address] | + + + | Home Phone | | + + + | Preferred Language | Unknown | + + + | Marital Status | | + + + | Temple Affiliation | Unknown | + + + | Race | Unknown | + + + | Ethnic Group | Unknown | + + + Author + + + | Author | [facility] | | | and [place] | + + + | Organization | [facility] | | | [...] Team Providers + +------+ + | Care Wood Patternmaker Name | Role | Phone | + +------+ + | Anthony Atkins DO | PCP | | + +------+ + Encounter Details +--------+ + + + + | Date | Type | Department | Care Team | Description | +--------+ + + + + | 05/07/ | Orders Only | [facility] | Conversion | | | 2015 | | NEPHROLOGY [place] | Transaction, | | | | | [address] | Provider Unknown | | | | | [place] | | | | | | [address] | (Fax) | | | | | [phone] | | | +--------+ + + + [...] | | | LAB | | | ENGLISH | | | | | + + [...]
--- OUTSIDE RECORDS SUMMARY | ~2020-05-14 | XMS | Encounter Summary ---
Demographics + + + | Address | [address] | | | [place] [address] | + + + | Home Phone | | + + + | Preferred Language | Unknown | + + + | Marital Status | | + + + | Jew Affiliation | Unknown | + + + | Race | Unknown | + + + | Ethnic Group | Unknown | + + + Author + + + | Author | [facility] | | | and [place] | + + + | Organization | [facility] | | | [...] Team Providers + +------+ + | Care Soap Inspector Name | Role | Phone | + +------+ + | Anthony Atkins DO | PCP | | + +------+ + Encounter Details +--------+ + + + + | Date | Type | Department | Care Team | Description | +--------+ + + + + | 09/23/ | Hospital | [facility] | Conversion | Diagnosis unknown | | 2016 | Encounter | CONVERSION [address] | Transaction, | | | | | [address] | Provider Unknown | | | | | [place] | [phone] | | | | | [address] | | | | | | [phone] | | | +--------+ + + + [...]
--- OUTSIDE RECORDS SUMMARY | ~2020-05-14 | XMS | Encounter Summary ---
Demographics + + + | Address | [address] | | | [place] [address] | + + + | Home Phone | | + + + | Preferred Language | Unknown | + + + | Marital Status | | + + + | Taoist Affiliation | Unknown | + + + [...] Team Providers + +------+ + | Care Sec Reporting Consultant Name | Role | Phone | + +------+ + | Anthony Atkins DO | PCP | | + +------+ + Reason for Visit +--------+--------+ + | Reason | Onset | Comments | | | Date | | +--------+--------+ + | Other | 07/28/ | Appointment reminder call | | | 2018 | | +--------+--------+ + Encounter Details +--------+ + + + + | Date | Type | Department | Care Team | Description | +--------+ + + + + | 07/28/ | Telephone | [facility] | Alex Carbajal MD | Other (Appointment | | 2018 | | NEPHROLOGY [place] | [address] [place] | reminder call) | | | | [address] [place] | [address] [place], [place] | | | | | [address] [place], [place] | [id number] | | | | | [address] | | | | | | [phone] | | | +--------+ + + + [...] this encounter Miscellaneous Notes Telephone Encounter - Steph Mcintosh, Supervisor Winter - 07/28/2019 11:07 AM PDTThis call is to remind patient of appointment and lab work needed. Left message with name and num bob of clinic for her to call back with any questions. documented in this encounter Plan of Treatment Not on filedocumented as of this encounter Visit Diagnoses Not on filedocumented in this encounter"
--- OUTSIDE RECORDS SUMMARY | ~2020-05-14 | XMS | Encounter Summary ---
Demographics + + + | Address | [address] | | | [place] [address] | + + + | Home Phone | | + + + | Preferred Language | Unknown | + + + | Marital Status | | + + + | Sabianism Affiliation | Unknown | + + + | Race | Unknown | + + + | Ethnic Group | Unknown | + + + Author + + + | Author | Located Within [facility] | | | and [place] | + + + | Organization | Located Within [facility] | | [...] Team Providers + +------+ + | Care Teletype Mechanic Name | Role | Phone | + +------+ + | Anthony Atkins DO | PCP | | + +------+ + Encounter Details +--------+ + + + + | Date | Type | Department | Care Team | Description | +--------+ + + + + | 09/23/ | Hospital | [facility] | MiguelZana morgan | | | 2016 - | Encounter | [facility] | Nixon Krueger MD [address] | | | | | CLINICAL DECISION | [address] | | | 09/25/ | | [address] | [place] [address] | | | 2015 | | [place], [place] | [phone] | | | | | [address] | | | | | | [phone] | | | +--------+ + + + [...] 1433 Date of Service: 09/25/166 Status: Addendum Clay Molder: Anival Son MD (Physician) Related Notes: Original Note by Anival Son MD (Physician) filed at 09/25/16 1121 [facility] Service: Hospitalist Discharge Summary Date of Admission: [...] 15-29 ml/min (HCC) 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 In [facility] her hemoglobin was between 8 and 9. [...] hours. No results for input(s): PHART, PO2ART, YFJ2YMT, S7OIQANZ, BEART in the last 168 hours. Recent Labs Lab 09/23/16 2253 INR 1.0 No results for input(s): TSH, T3FREE, FREET4 in the last 168 hours. Recent Labs Lab 09/24/16 2344 09/24/16 1737 09/24/16 1203 TROPONINI 0.282* 0.399* 0.499* Radiology No results found. Disposition: Home Condition: Stable Code Status: Full Code No discharge procedures on file. Follow [place]: [place] [address] [place] [address] In 1 week Ritseh Gibson MD [address] [facility] [address] In 2 weeks Leandro Main MD 5 [facility] [id number] In 1 month Medication List START taking [...] 09/25/161442 Date of Service: 09/25/161441 Status: Signed Clay Molder: Trevor Yung RN (Registered Nurse) Pt educated on medications, prescriptions, follow ups and s/s of symptomatic anemia and CHF . Pt escorted to [facility] entrance. Trevor Yung RN onver dave Transaction, Provider Unknown - 09/25/2016 5:18 AM PST Progress Notes by Shasta Osorio RN at 09/25/16517 Author: Shasta Osorio RN Service: (none) Author Type: Registered Nurse Filed: 09/25/16524 Date of Service: 09/25/16517 Status: Signed Clay Molder: Shasta Osorio RN (Registered Nurse) Pt received [...] 09/24/161829 Date of Service: 09/24/161829 Status: Signed Clay Molder: Trevor Yung RN (Registered Nurse) No acute [...] Date of Service: 09/24/16 1152 Status: Signed Clay Molder: Yung Steven MD (Physician) Came back to see patient She denies chest pain, arm pain or claminess. Troponin is slightly up EKG shows some high lateral T wave inversions ?type 2 CA Will cont to trend enzymes and cont [...] Date of Service: 09/24/16 100 Status: Signed Clay Molder: Kaia Early RN (Registered Nurse) Met with patient and granddaughter. Explained CM role and discussed discharge planning. Karolyn rubio is a 85 yr old female admitted for symptomatic anemia and SOB. Pt states she is independe nt with all ADLs. She uses a 4WW in community only and the [facility] shuttle for transportatio n. Denies outpt medical services. She states she goes to the [facility] health clinic for any services needed. PCP [...] Mobility Yes Mental Status Oriented Power of Residential Life Director No (declined paperwork) Anticipated Discharge Plan Post Acute Care Needs None at this time Plan communicated to patient/family Yes Resources Financial concerns No Transportation issues No Patient/Family concerns No Prescription Plan Yes Previous home health equipment Yes (4WW) Pt is an 85 y.o. female who lives alone at [place]. [place] daughter [place] nearby and visits every day. Pt denies concerns regarding needs being met at home. Pt's granddaughter in room at time of assessment and states famil y is available at any time. Patient's PCP is: Anthony Atkins MD Patient's insurance: Medicare/[employer] Coverage concerns: None Medication coverage/concerns: None Community resources utilized / needed: None at this time Assistance in transportation: Pt's daughter, Amado, will provide transportation home. Am[place] [phone] Anticipated DCP: Home Kaia Comfort onver dave Ni, Provider Unknown - 09/24/2016 9:52 AM PST Therapy Progress Note by Eleonora Thompson PT at 09/24/16951 Author: Eleonora Thompson PT Service: (none) Author Type: Physical Therapist Filed: 09/24/16951 Date of Service: 09/24/16951 Status: Signed Clay Molder: Eleonora Thompson PT (Physical Therapist) 09/24/16 0800 PT Last Visit PT Received On 09/24/16 Reason for Treatment Deconditioning Requires PT Follow Up No Follow up PT Only? No PT Eval/Reassessment Date 09/24/16 Assistance Required Independent Radar Operator Needed No Home Environment Type of Home Home one story Home Exterior Layout Entry steps none Home Interior Layout Lives on main level with bedroom/bathroom Bathroom Shower/Tub Tub/shower unit Bathroom Toilet Standard Bathroom Equipment Grab bars in shower/bath;Shower stool Bathroom Accessibility Not accessible Home Equipment Walker 4 wheeled Additional Comments no supplemental O2 needs here or in the home Prior Function Level of [place] Modified independent with functional mobility (use of [...] PT Eval/Reassessment Date 09/24/16 Assistance Required Independent Radar Operator Needed No Other Comments Comments Pt chart review/evaluation/POC performed/produced w/patient and granddaughter. Bettina roldan resides on an [facility] and takes the shuttle bus daily from her home to [facility] where she picks up her 4WW and [place] the [place] for the day prior to returnin home on the shuttle bus. The patient does not use 4W in the home, it stays at the car nikolai t at the [employer]. 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 onver dave Transaction, Provider Unknown - 09/24/2016 4:11 AM PST Nurse Progress Note by Cj Persaud RN at 09/24/16410 Author: Cj Persaud RN Service: (none) Author Type: Registered Nurse Filed: 09/24/1628 Date of Service: 09/24/16410 Status: Addendum Clay Molder: Cj Persaud RN (Registered Nurse) Related Notes: [...] 09/24/16111 Date of Service: 09/24/16111 Status: Signed Clay Molder: Chante Newby RPH (Pharmacist) Clinical Pharmacy Note: [...] 1415 Date of Service: 09/23/162038 Status: Addendum Clay Molder: Zana Rivera MD (Physician) Related Notes: Original Note by Zana Rivera MD (Physician) filed at 09/24/16 1251 [facility] Service: Hospitalist Admission History & Physical Date of Admission: 09/23/2016 Requesting Physician: Dr. 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 As well per note from [facility] the patient had refused to go for follow-up after her h ospitalization on 04/2016. As well she had been discharged on Lipitor 20 mg daily, aspirin 81 mg daily, carvedilol 3.125 twice a day, cyanocobalamin 1000 g daily, Colace 250 mg daily, and Lasix 80 mg daily from her last admission at [facility] but on reviewing her m edications with her she is not taking her cholesterol pill her carvedilol her cyanocobalamin and she is only taking her water pill according to her. I am not sure about this patient's compliance. Patient had last been hospitalized on 04/06/2016- at [facility] for acute c ongestive heart failure secondary [...] and per note from Dr. Herman at [facility], although the patient denies this , it looked like she had been very weak and about to fall at the primary care physician's of [facility] and they had also done CBC which showed hemoglobin of 5.9 with a previous hemoglobin be ing 9.4 on 04/09/2016, she also stated that her rectal guiac "slightly positive "patient was g iven 2 units of packed RBC and given her history of AVM was transferred to [facility] for higher l evel of care. by [...] History Diagnosis Date Diabetes mellitus, type II ([facility]) Smoker Hyperkalemia 05/02/2014 Acidosis, metabolic 05/03/2014 Orthopnea 05/01/2014 Hypoxia 05/01/2014 Elevated troponin 05/01/2014 Dyspnea 05/01/2014 Acute systolic CHF (congestive heart failure) ([facility]) 05/02/2014 Hyponatremia 05/03/2014 Hyperphosphatemia 05/03/2014 LEANNA (acute kidney injury) ([facility]) 05/01/2014 CKD (chronic kidney disease) stage 4, GFR 15-29 ml/min ([facility]) 07/16/2014 Asymptomatic hyperuricemia 05/22/2014 DM2 (diabetes mellitus, type 2) ([facility]) 05/01/2014 Past Surgical History Procedure Laterality Date section Lasik Colonoscopy with egd N/A 05/07/2014 Procedure: COLONOSCOPY W/ EGD; Surgeon: Ritesh Gibson MD; Location: [facility] ENDOSCOPY; Se rvice: Gastroenterology; Laterality: N/A; Immunizations: [...] on file Social History Narrative Resident of [place] since at least 2004. Ongoing smoker with [...] of intestinal tract Coronary artery 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 Pulmonary emphysema (HCC) Smoker DM2 (diabetes mellitus, type 2) ([facility]) Anemia, iron deficiency Systolic CHF, chronic ([facility]) CKD (chronic kidney disease) stage 4, GFR 15-29 ml/min ([facility]) ASSESSMENT & PLAN Patient Active Hospital Problem List: SOB (shortness of breath) on exertion (09/23/2016) Assessment: A combination of the patient's COPD as well as anemia and ischemic cardiomyop athy and congestive heart failure Plan: Patient has been given 2 units of packed RBC at [facility], I will cont inue to monitor hemoglobin [...] seen her before he recommended calling GI permastone installer and I did discu ss the patient [...] or GI recently. Coronary artery 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 (09/23/2016) Assessment: No history of chest pain Plan: Continue Coreg 3.125 daily Lipitor 20 mg daily, lisinopril 5 mg daily DM2 (diabetes mellitus, type 2) ([facility]) (05/01/2014) Assessment: According the patient she has not been taking her glyburide her last HbA1c wa s 6.9 on 05/07/2015 in [facility]. Plan: We will repeat HbA1c, restart glyburide, diabetic diet, insulin sliding scale. Anemia, iron deficiency as well as vitamin b12 deficiency (05/02/2014) Assessment: With the patient not taking her iron pills and her vitamin B12 pills Plan: Resume ferrous sulfate 65 bid as well as cyanocobalamin 1000 g daily Systolic CHF, chronic ([facility]) (05/22/2014) Assessment: I believe the patient's shortness of breath is more from her anemia rather th an her congestive heart failure Plan: Given 2 units of packed RBC and continue to follow hemoglobin and hematocrit is abo ve CKD (chronic kidney disease) stage 4, GFR 15-29 ml/min ([facility]) (07/16/2014) Assessment: Stable the patient had been [...] care with other providers well as Computer[facility]. Other recomme ndations for management of this patient will be dependent upon the patient's clinical course . Inpatient, patient will require minimum of 2 night stay due to complexity of patient's medi andrea conditions, and need to stabilize patient's underlying conditions Disposition: Admit as Inpatient to Acute Care Floor Dictation software, Rx[employer]vance, used which may contain error for similar [...] Consult* by Cyrus Gross MD at 09/24/16 1101 Author: Cyrus Gross MD Service: Gastroenterology Author Type: Physician Filed: 10/01/16 1835 Date of Service: 09/24/161104 Status: Signed Clay Molder: Cyrus Gross MD (Physician) Related Notes: Original Note by Cyrus Gross MD (Physician) filed at 09/24/16 1 132 [facility] Service: Gastroenterology Initial Consult Note [...] of 5.7. The patient was sent to [facility]. B ecause of the severe anemia, the patient was transferred to [facility] f or further evaluation and treatment. I [...] History Diagnosis Date Diabetes mellitus, type II ([facility]) Smoker Hyperkalemia 05/02/2014 Acidosis, metabolic 05/03/2014 Orthopnea 05/01/2014 Hypoxia 05/01/2014 Elevated troponin 05/01/2014 Dyspnea 05/01/2014 Acute systolic CHF (congestive heart failure) ([facility]) 05/02/2014 Hyponatremia 05/03/2014 Hyperphosphatemia 05/03/2014 LEANNA (acute kidney injury) ([facility]) 05/01/2014 CKD (chronic kidney disease) stage 4, GFR 15-29 ml/min ([facility]) 07/16/2014 Asymptomatic hyperuricemia 05/22/2014 DM2 (diabetes mellitus, type 2) ([facility]) 05/01/2014 Coronary artery 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 09/23/2016 SOB (shortness of breath) on exertion 09/23/2016 Localized arteriovenous malformations of intestinal tract 09/23/2016 Pulmonary emphysema ([facility]) 09/23/2016 Past Surgical History Procedure Laterality Date section Lasik Colonoscopy with egd N/A 05/07/2014 Procedure: COLONOSCOPY W/ EGD; Surgeon: Ritesh Gibson MD; Location: [facility] ENDOSCOPY; rvice: Gastroenterology; Laterality: N/A; No Known [...] Active Problems: DM2 (diabetes mellitus, type 2) ([facility]) Anemia, iron deficiency Systolic CHF, chronic (HCC) CKD (chronic kidney disease) stage 4, GFR 15-29 ml/min ([facility]) Coronary artery 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 Pulmonary emphysema ([facility]) Smoker ASSESSMENT & PLAN The patient is [...] | | | Fingerstick | performed at [facility];[address] | | LAB | | | | [address];[place], [place] | | | | | | [address] | | | | + + + [...] EXTERNAL | | | | performed at [facility];[address] | g/dL | LAB | | | | [address];[place] | | | | | | [address] | | | | + + + + + + | Hematocrit, | 33.5 (L)Comment: Testing | 34.0 - 46.0 % | EXTERNAL | | | POC | performed at [facility];[address] | | LAB | | | | [address];[place] | | | | | | [address] | | | | + + + [...] | | | Fingerstick | performed at [facility];[address] | | LAB | | | | [address];[place] | | | | | | [address] | | | | + + + [...] EXTERNAL | | | | performed at [facility];[address] | g/dL | LAB | | | | [address];[place] | | | | | | [address] | | | | + + + + + + | Hematocrit, | 33.5 (L)Comment: Testing | 34.0 - 46.0 % | EXTERNAL | | | POC | performed at [facility];[address] | | LAB | | | | [address];[place] | | | | | | [address] | | | | + + + [...] | | | | | | ACUTE CA Testing | | | | | | performed at [facility];[address] | | | | | | [address];[place], [place] | | | | | | [address] | | | | + + + [...] | | | Fingerstick | performed at [facility] | | LAB | | | | [address];[place], [place] | | | | | | [address] | | | | + + + [...] | | | | | | ACUTE CA Testing | | | | | | performed at [facility];[address] | | | | | | [facility];[place], [place] | | | | | | [address] | | | | + + + [...] | | | Fingerstick | performed at [facility];[address] | | LAB | | | | [address];[place] | | | | | | [address] | | | | + + + [...] EXTERNAL | | | | performed at [facility];888 | g/dL | LAB | | | | [address];[place] | | | | | | [address] | | | | + + + + + + | Hematocrit, | 26.4 (L)Comment: Testing | 34.0 - 46.0 % | EXTERNAL | | | POC | performed at [facility];[address] | | LAB | | | | [address];[place], [place] | | | | | | [address] | | | | + + + [...] | | | | | | ACUTE CA Testing | | | | | | performed at [facility] | | | | | | [address];[place], [place] | | | | | | [address] | | | | + + + [...] | | | Fingerstick | performed at [facility];[address] | | LAB | | | | [address];[place], [place] | | | | | | [address] | | | | + + + [...] + + | [facility]ically [facility] environment | EXTERNAL LAB | + + [...] | | | | | | ACUTE CA Testing | | | | | | performed at [facility];[address] | | | | | | [address] [facility];[place], [place] | | | | | | [address] | | | | + + + [...] | | | External | performed at [facility], [address] | | LAB | | | | [address], | | | | | | [place] [address] | | | | + + + [...] EXTERNAL | | | | performed at [facility];888 | g/dL | LAB | | | | [address];[place] | | | | | | [address] | | | | + + + + + + | Hematocrit, | 26.8 (L)Comment: Testing | 34.0 - 46.0 % | EXTERNAL | | | POC | performed at [facility];[address] | | LAB | | | | [address];[place] | | | | | | [address] | | | | + + + [...] | | | Fingerstick | performed at [facility];[address] | | LAB | | | | [address];[place], [place] | | | | | | [address] | | | | + + + [...] EXTERNAL | | | | performed at [facility];888 | g/dL | LAB | | | | [address];[place] | | | | | | [address] | | | | + + + + + + | Hematocrit, | 25.3 (L)Comment: Testing | 34.0 - 46.0 % | EXTERNAL | | | POC | performed at [facility];[address] | | LAB | | | | [address];[place], [place] | | | | | | [address] | | | | + + + [...] EXTERNAL | | | | performed at [facility], [address] | | LAB | | | | [address], | | | | | | [place] [address] | | | | + + + [...] EXTERNAL | | | | performed at [facility], [address] | | LAB | | | | [address], | | | | | | [place] [address] | | | | + + + [...] | | | | | [place] [address] | | | | + + + + + + | K | 4.4Comment: Testing | 3.5 - 4.9 | EXTERNAL | | | | performed at [facility], [address] | mmol/L | LAB | | | | [address], | | | | | | [place] [address] | | | | + + + + + + | Cl | 108Comment: Testing | 99 - 109 mmol/L | EXTERNAL | | | | performed at [facility], [address] | | LAB | | | | [address], | | | | | | [place] [address] | | | | + + + + + + | CO2 | 22 (L)Comment: Testing | 23 - 32 mmol/L | EXTERNAL | | | | performed at [facility], [address] | | LAB | | | | [address], | | | | | | [place] [address] | | | | + + + + + + | Anion Gap | 14Comment: Testing | 5 - 20 mmol/L | EXTERNAL | | | | performed at [facility], [address] | | LAB | | | | [address], | | | | | | [place] [address] | | | | + + + + + + | Glucose, | 92Comment: Testing | 65 - 99 mg/dL | EXTERNAL | | | Fasting | performed at [facility], [address] | | LAB | | | | [address], | | | | | | [place] [address] | | | | + + + + + + | BUN | 31 (H)Comment: Testing | 8 - 25 mg/dL | EXTERNAL | | | | performed at [facility], [address] | | LAB | | | | [address], | | | | | | [place] [address] | | | | + + + + + + | Creatinine | 2.0 (H)Comment: Testing | 0.50 - 1.00 | EXTERNAL | | | | performed at [facility], [address] | mg/dL | LAB | | | [address], | | | | | | [place] [address] | | | | + + + + + + | BUN/Creatin | 16Comment: Testing | | EXTERNAL | | | ine Ratio | performed at [facility], [address] | | LAB | | | | [address], | | | | | | [place] [address] | | | | + + + + + + | Calcium | 8.1 (L)Comment: Testing | 8.5 - 10.5 | EXTERNAL | | | | performed at [facility], [address] | mg/dL | LAB | | | | [address], | | | | | | [place] [address] | | | | + + + [...] [address], | | | | | | [place] [address] | | | | + + + [...] + + + | BB BAND | [id number] | | EXTERNAL | | | | | | LAB | | + + + + + + | UNIT NUMBER | [id number] | | EXTERNAL | | | | [...] + + + | UNIT NUMBER | [id number] | | EXTERNAL | | | | | | LAB | | + + + + + + | UNIT NUMBER | Testing performed at | | EXTERNAL | | | | [facility];[address] | LAB | | | [address];[place] [address] | | | | + + + + + + | Product | LEUKODEPLETED PCTesting | | EXTERNAL | | | Code | performed at [facility];[address] | | LAB | | | | [address];[place], [place] | | | | | | [address] | | | | + + + + + + | Unit | 00Testing performed at | | EXTERNAL | | | Division | [facility];[address] | | LAB | | | | [address];[place] [address] | | | | + + + + + + | Unit Status | ISSUED,FINALTesting | | EXTERNAL | | | | performed at [facility];[address] | | LAB | | | | [address];[place] | | | | | | [address] | | | | + + + + + + | Transfusion | OK TO TRANSFUSETesting | | EXTERNAL | | | Status | performed at [facility];[address] | | LAB | | | | [address];[place] | | | | | | [address] | | | | + + + + + + | CROSSMATCH | COMPATIBLETesting | | EXTERNAL | | | RESULT | performed at [facility];[address] | | LAB | | | | [address];[place] | | | | | | [address] | | | | + + + [...] EXTERNAL | | | | performed at [facility];[address] | g/dL | LAB | | | | [address];[place] | | | | | | [address] | | | | + + + + + + | Hematocrit, | 28.1 (L)Comment: Testing | 34.0 - 46.0 % | EXTERNAL | | | POC | performed at [facility];[address] | | LAB | | | | [address];[place] | | | | | | [address] | | | | + + + [...] | | | | | [place] [address] | | | | + + + + + + | TIBC | 490Comment: Testing | 260 - 490 ug/dL | EXTERNAL | | | | performed at [facility], [address] | | LAB | | | | [address], | | | | | | [place] [address] | | | | + + + + + + | Iron | 7 (L)Comment: Testing | 15 - 50 % | EXTERNAL | | | Saturation | performed at [facility], [address] | | LAB | | | | [address], | | | | | | [place] [address] | | | | + + + [...] | | | | | performed at [facility] | | | | | | [facility];[place], [place] | | | | | | [address] | | | | + + + [...] + + | Hemoglobin | 5.8Comment: The [place] | 4.0 - 6.0 % | EXTERNAL [...] | | | | | performed at [facility], [address] | | | | | [address] [facility] ([place], [place]), | | | | | | [place] [address] | | | | + + + [...] | | | | | performed at [facility], [address] | | | | | | [facility] ([place], [place]), | | | | | | [place] [address] | | | | + + + [...] EXTERNAL | | | | performed at [facility], [address] | | LAB | | | | [place], | | | | | | [place] [address] | | | | + + + [...] | | | B-12 | performed at [facility], [address] | pg/mL | LAB | | | | [place], | | | | | | [place] [address] | | | | + + + [...] | | | Fingerstick | performed at [facility];[address] | | LAB | | | | [place] | | | | | | [address] | | | | + + + [...]
--- OUTSIDE RECORDS SUMMARY | ~2020-05-14 | XMS | Encounter Summary ---
Demographics + + + | Address | [address] | | | [place] [address] | + + + | Home Phone | | + + + | Preferred Language | Unknown | + + + | Marital Status | | + + + | Denominational Affiliation | Unknown | + + + [...] Team Providers + +------+ + | Care Retail Client Solutions Consultant Name | Role | Phone | [...] + + | 07/28/ | Telephone | [facility] | Alex Carbajal MD | Other (Appointment | | 2018 | | NEPHROLOGY [place] | [address] [place] | reminder call) | | | | [address] [place] | [address] [place], [place] | | | | | [address] [place], [place] | [id number] | | | | | [address] | | | | | | [phone] | | | +--------+ + + + [...] Miscellaneous Notes Telephone Encounter - Steph Mcintosh, Hospice Patient Care Secretary - 07/28/2019 11:07 AM PDTThis call is to remind patient of appointment and lab work needed. Left message with name and num bob of clinic for her to call back with any questions. documented in this encounter Plan of Treatment Not on filedocumented as of this encounter Visit Diagnoses Not on filedocumented in this encounter"
--- OUTSIDE RECORDS SUMMARY | ~2020-05-14 | XMS | Encounter Summary ---
Demographics + + + | Address | [address] | | | [place] [address] | + + + | Home Phone | | + + + | Preferred Language | Unknown | + + + | Marital Status | | + + + | Bahai Affiliation | Unknown | + + + [...] Team Providers + +------+ + | Care Ore Bridge Operator Name | Role | Phone | + +------+ + | Anthony Atkins DO | PCP | | + +------+ + Encounter Details +--------+ + + + + | Date | Type | Department | Care Team | Description | +--------+ + + + + | 04/15/ | Abstract | [facility] | Valeriy Ceballos, | | | 2015 | | CARDIOLOGY [address] | | | | | [place], | [place], | | | | | [place] [address] | [place] [address] | | | | | [phone] | [phone] | | | | | | | [...]
--- OUTSIDE RECORDS SUMMARY | ~2020-05-14 | XMS | Clinical Summary ---
Demographics + + + | Address | [address] | | | [place] [address] | + + + | Home Phone | | + + + | Preferred Language | Unknown | + + + | Marital Status | | + + + | Roman Catholic Affiliation | Unknown | + + + | Race | Unknown | + + + | Ethnic Group | Unknown | + + + Author + + + | Author | [facility] | | | and [place] | + + + | Organization | [facility] | | | and [...] Team Providers + +------+ + | Care Bird Keeper Name | Role | Phone | + [...] + + | Coronary artery disease involving [place] coronary artery | 09/23/2016 | + + [...] +--------+ +---------+--------+ | MEDICARE | MEDICA | [id number] | | [phone] | | Medica | | | RE | | [phone] | [phone] | | re | | | PART A | | esent | | | | | | AND B | | | | | | + +--------+ +--------+ +---------+--------+ | [facility] | [employer]HS | [id number] | 04/05/20 | | | Indemn | [...] [place]ina | | | 2 (Home) | [address] | + +--------+ +--------+ + + Advance Directives + + + + + | Type | Date Recorded | Patient | Explanation | | | | Head Of Art | | + + + + + | Power of | | | | | Grit Blaster | | | | + + + [...]
--- OUTSIDE RECORDS SUMMARY | ~2020-05-14 | XMS | Encounter Summary ---
Demographics + + + | Address | [address] | | | [place] [address] | + + + | Home Phone | | + + + | Preferred Language | Unknown | + + + | Marital Status | | + + + | Buddhism Affiliation | Unknown | + + + [...] Team Providers + +------+ + | Care Corrections Officer Name | Role | Phone | + +------+ + | Anthony Atkins DO | PCP | | + +------+ + Reason for Visit + +--------+ + | Reason | Onset | Comments | | | Date | | + +--------+ + | Hospital Follow-up | 04/13/ | | | | 2015 | | + +--------+ + Encounter Details +--------+ + + + + | Date | Type | Department | Care Team | Description | +--------+ + + + + | 04/13/ | Telephone | [facility] | Zoë Butt, | Hospital Follow-up | | 2015 | | [facility] | PharmD [address] | | | | | [address] | [facility] | | | | | [place] [address] | [place] [address] | | | | | [phone] | [phone] | | +--------+ + + + + [...] this encounter Miscellaneous Notes Telephone Encounter - Hudson Bond, PharmD - 04/15/2016 11:36 AM [facility] p Phone Call Date discharged: 04/09/16 Primary Diagnosis: Heart Failure Education done/topics reviewed: 1. Health Status - Doing fine 2. Diagnosis education - reviewed pts knowledge of primary diagnosis and provided additiona l education. - Patient was complaining of ankle pain, referred her to Dr. Atkins 3. Medication Reconciliation - Medications reconciled over the phone with patient looking at prescription bottles. 4. Reminded pt of scheduled follow-up appointment. 5. Reviewed what do in emergency as well as a non-emergent situation. Verified pt has doct or's contact information. Date of follow-up appointment with PCP: Dr. Atkins on 04/14. No f/u with battery test engineer (Dr. Scott) needed per Dr. Milly Bond, PHARMD 04/15/2016 11:53 elephone [facility] Zoë Reyes PharmD - 04/14/2016 2:50 PM PDTHospital Follow-Up Phone Call Date discharged: 04/09/16 Primary Diagnosis: Heart failure Patient not home. Left message with granddaughter again. Date of follow-up appointment with PCP: To be made; Dr. Ceballos 04/20 @0830 Electronically signed by: Zoë Butt PHARMFallon 04/14/2016 14:54 [facility] - 04/13/2016 1:41 PM PDTHospital Follow-Up Phone Call Date discharged: 04/09/16 Primary Diagnosis: CHF Patient not home. Left message (callback number) with granddaughter. Date of follow-up appointment with PCP: To be made; Dr. Ceballos 04/20 @0830 Electronically signed by: Zoë Butt PHARMFallon 04/13/2016 13:44 documented in thi s encounter Plan of Treatment Not on filedocumented as of this encounter Visit Diagnoses Not on filedocumented in this encounter"
--- OUTSIDE RECORDS SUMMARY | ~2020-05-14 | XMS | Encounter Summary ---
Demographics + + + | Address | [address] | | | [place] [address] | + + + | Home Phone | | + + + | Preferred Language | Unknown | + + + | Marital Status | | + + + | Quaker Affiliation | Unknown | + + + | Race | Unknown | + + + | Ethnic Group | Unknown | + + + Author + + + | Author | [facility] | | | and [place] | + + + | Organization | [facility] | | | [...] Team Providers + +------+ + | Care Sox Analyst Name | Role | Phone | + +------+ + PCP | Unavailable | + +------+ + Encounter Details +--------+ + + + + | Date | Type | Department | Care Team | Description | +--------+ + + + + | 05/01/ | Hospital | [facility] | Gabino Sky DO | Congestive heart | | 2013 - | Encounter | [facility] | [address] | failure ([facility]); | | | | CARE [address]LO[address] | [place] [address] | Hypoxia; Acidosis, | | 05/07/ | | [address] | [phone] | metabolic; | | 2013 | | [place], [place] | | Hyperphosphatemia; | | | | [address] | | Hyponatremia; | | | | [phone] | | Vitamin D | | | | | | deficiency; Anemia; | | | | | | Elevated troponin; | | | | | | Acute renal failure | | | | | | ([facility]); Acute | | | | | | systolic CHF | | | | | | (congestive heart | | | | | | failure) ([facility]); LEANNA | | | | | | (acute kidney | | | | | | injury) ([facility]); | | | | | | Anemia, iron | | | | | | deficiency; DM2 | | | | | | (diabetes mellitus, | | | | | | type 2) ([facility]); | | | | | | [...] 1816 Date of Service: 05/07/141441 Status: Signed Laser Engraver: Aylin White MD (Physician) Related Notes: Original Note by Aylin White MD (Physician) filed at 05/07/14 144 HOSPITALIST DISCHARGE SUMMARY Patient ID: Alexsandra Hawkins [id number] 83 y.o. 1930 Admit date: 05/01/2014 Discharge [...] An 83-year-old female who follows up with [facility]. Does not take any medications. She was [...] inferior wall. Dr. Terrell thinks that the HI was old. The patient has been started [...] p.o. of Lasix. I discussed with Dr. Ptael today. The patient would like to f [...] Units Date/Time Fecal occult blood (in house) [[id number]] (Abnormal) Collected:05/05/14 1302 Specimen Information:Stool / Stool [...] trium is mildly dilated. 6. There is auaz-yr-uwxuegem aortic regurgitation. 7. Pocy-jo-xoqvl ate mitral regurgitation is present. 8. There [...] is mildly calcified. Aortic Valve: There is civv-qh-wswnnmho aortic regurgitation. Aort ic Valve: There is no evidence of significant aortic stenosis. Mitral Valve: The mitral louis ve is normal. Mitral Valve: Jzna-rk-nefxqmqt mitral regurgitation is present. Mitral Valve : Moderate mitral annular calcification present. Mitral Valve: Mild thickening of the anter ior mitral valve leaflet. Mitral Valve: There is mild thickening of the posterior mitral va lve leaflet. Tricuspid Valve: The tricuspid valve appears structurally normal. Tricuspid Va lve: Ffky-tc-xowudgsi tricuspid regurgitation present. Tricuspid Valve: There is [...] 0.05 m/s EPSS: 1.21 cm AR Dec Hardeman: 1.60 m/s2 AR Dec Time: 1757.97 ms [...] TV A Mc: 0.93 m/s TV Dec Hardeman: 4.08 m/s2 TV Dec Time: 135.12 ms TV E Mc: 0.55 m/s TV E/A Ratio: 0.58 Candy Attendant: LOLY Authenticated by: Christiano Guzman MD Report Date/Time: 05-01-2014 16:13:14 05/01/2014 1. Overall left ventricular systolic function is moderately impaired with, an EF between 30 - 40 %. 2. The left ventricle is markedly dilated. 3. mid anteroseptal - akinetic ; 4. apex - akinetic; 5. The left atrium is mildly dilated. 6. There is rqsg-qj-syixejgo a ortic regurgitation. 7. Lvip-kn-andmovrf mitral regurgitation is present. 8. There is modera te pulmonary hypertension. 9. The right ventricular systolic pressure (pulmonary artery syst olic pressure), as measured by Doppler, is 62.61mmHg. 10. There is a small pericardial effus ion is located near the right ventricle. 11. There is no evidence of cardiac tamponade. Nm Cardiovascular Stress Treadmill 05/05/2014 This procedure was resulted in [place] (the cardiology system). Please see the Medi [...] are the prescriptions that you need to corn picker. You may get these medications from any pharmacy. aspirin EC 81 MG EC tablet carvedilol 3.125 MG tablet ferrous sulfate (65 FE) 324 (65 FE) MG EC tablet furosemide 20 MG tablet glipiZIDE 5 MG tablet lisinopril 5 MG tablet simvastatin 20 MG tablet spironolactone 25 MG tablet Activity: activity as tolerated Diet: diabetic Follow up: Lois Moeller NP [phone] Schedule an appointment as soon as possible for a visit in 2 days Ritesh Gibson MD [address] [facility] [address] [facility] [address] In 2 weeks Leandro Terrell MD [address] [facility] [address] Schedule an appointment as soon as possible for a visit in 3 weeks Alex Carbajal MD [address] [facility] [address] Schedule an appointment as soon [...] Date of Service: 05/07/14 1306 Status: Signed Laser Engraver: Sera Rodriguez RN (Registered Nurse) Pt off floor for procedure at 1:07 PM Sera Rodriguez Hortensia Avery MD - 05/07/2014 9:21 AM PDTFormatting of this note might be different from the o riginal. Progress Notes by Hortensia Patel MD at 05/07/14920 Author: Hortensia Patel MD Service: Nephrology Author Type: Physician Filed: 05/07/14 2226 Date of Service: 05/07/14920 Status: Signed Laser Engraver: Hortensia Patel MD (Physician) [facility] Service: NEPHROLOGY Progress Note Alexsandra Hawkins 83 y.o. [id number] 4460/4460-1 female [facility] Day: LOS: 6 days SUBJECTIVE Patient seen [...] on file Social History Narrative Resident of [place] since at least 2004.Ongoing smoker with about [...] Results Component Value Date PTHINTACT 93* 05/02/2014 [id number] <12* 05/02/2014 Lab Results Component Value Date [id number] 263 05/02/2014 Lab Results Component Value Date [...] trium is mildly dilated. 6. There is eenw-qr-luljdqnb aortic regurgitation. 7. Pmmp-kr-memkp ate mitral regurgitation is present. 8. There [...] is mildly calcified. Aortic Valve: There is frqj-fh-pxthlzhp aortic regurgitation. Aort ic Valve: There is no evidence of significant aortic stenosis. Mitral Valve: The mitral louis ve is normal. Mitral Valve: Yxxm-ys-buirownq mitral regurgitation is present. Mitral Valve : Moderate mitral annular calcification present. Mitral Valve: Mild thickening of the anter ior mitral valve leaflet. Mitral Valve: There is mild thickening of the posterior mitral va lve leaflet. Tricuspid Valve: The tricuspid valve appears structurally normal. Tricuspid Va lve: Emmz-cr-kzytwasi tricuspid regurgitation present. Tricuspid Valve: There is [...] 0.05 m/s EPSS: 1.21 cm AR Dec Hardeman: 1.60 m/s2 AR Dec Time: 1757.97 ms [...] TV A Mc: 0.93 m/s TV Dec Hardeman: 4.08 m/s2 TV Dec Time: 135.12 ms TV E Mc: 0.55 m/s TV E/A Ratio: 0.58 Candy Attendant: LOLY Authenticated by: Christiano Guzman MD Report Date/Time: 05-01-2014 16:13:14 05/01/2014 1. Overall left ventricular systolic function is moderately impaired with, an EF between 30 - 40 %. 2. The left ventricle is markedly dilated. 3. mid anteroseptal - akinetic ; 4. apex - akinetic; 5. The left atrium is mildly dilated. 6. There is alct-hd-fzdmyecn a ortic regurgitation. 7. Tqqx-nl-nsxowtpf mitral regurgitation is present. 8. There is modera te pulmonary hypertension. 9. The right ventricular systolic pressure (pulmonary artery syst olic pressure), as measured by Doppler, is 62.61mmHg. 10. There is a small pericardial effus ion is located near the right ventricle. 11. There is no evidence of cardiac tamponade. Nm Cardiovascular Stress Treadmill 05/05/2014 This procedure was resulted in [place] (the cardiology system). Please see the Medi [...] Nuc study Reviewed. No significant ischemia. Her HI is old. Reason for admission was anemia, [...] atrium is mildly dilated. 6. There is juux-wr-lunmzwam aort ic regurgitation. 7. Msef-tj-sfcadpjy mitral regurgitation is present. 8. There is [...] Dr. Carbajal in his local clinic in [place] Time spend over 25 minutes of time [...] Date of Service: 05/06/14 1106 Status: Signed Laser Engraver: Aylin White MD (Physician) [facility] Service: Hospitalist Progress Note Hospital Day: [...] hours No results found for this basename: PHART:3,PO2ART:3,XOV1XUB:3,I3QODQVG:3,BEART:[address] 168 hours Lab [...] Units Date/Time Fecal occult blood (in house) [[id number]] (Abnormal) Collected:05/05/14 1302 Specimen Information:Stool / Stool [...] trium is mildly dilated. 6. There is vqsm-ah-oibnikme aortic regurgitation. 7. Weep-sd-rmphr ate mitral regurgitation is present. 8. There [...] is mildly calcified. Aortic Valve: There is xygk-xz-yhgihqdu aortic regurgitation. Aort ic Valve: There is no evidence of significant aortic stenosis. Mitral Valve: The mitral louis ve is normal. Mitral Valve: Knor-ld-zdtpxnbx mitral regurgitation is present. Mitral Valve : Moderate mitral annular calcification present. Mitral Valve: Mild thickening of the anter ior mitral valve leaflet. Mitral Valve: There is mild thickening of the posterior mitral va lve leaflet. Tricuspid Valve: The tricuspid valve appears structurally normal. Tricuspid Va lve: Pfla-ds-ilgidyef tricuspid regurgitation present. Tricuspid Valve: There is [...] 0.05 m/s EPSS: 1.21 cm AR Dec Hardeman: 1.60 m/s2 AR Dec Time: 1757.97 ms [...] TV A Mc: 0.93 m/s TV Dec Hardeman: 4.08 m/s2 TV Dec Time: 135.12 ms TV E Mc: 0.55 m/s TV E/A Ratio: 0.58 Candy Attendant: LOLY Authenticated by: Christiano Guzman MD Report Date/Time: 05-01-2014 16:13:14 05/01/2014 1. Overall left ventricular systolic function is moderately impaired with, an EF between 30 - 40 %. 2. The left ventricle is markedly dilated. 3. mid anteroseptal - akinetic ; 4. apex - akinetic; 5. The left atrium is mildly dilated. 6. There is thws-dy-wgwcluxe a ortic regurgitation. 7. Dnpr-vp-itfaoujl mitral regurgitation is present. 8. There is [...] 1233 Date of Service: 05/06/14841 Status: Signed Laser Engraver: Hortensia Patel MD (Physician) [facility] Service: NEPHROLOGY Progress Note Alexsandra Hawkins 83 y.o. [id number] 4460/4460-1 female [facility] Day: LOS: 5 days SUBJECTIVE Patient seen [...] on file Social History Narrative Resident of [place] since at least 2004.Ongoing smoker with about [...] Results Component Value Date PTHINTACT 93* 05/02/2014 [id number] <12* 05/02/2014 Lab Results Component Value Date [id number] 263 05/02/2014 Lab Results Component Value Date [...] Spect (stress And Rest) 05/05/2014 ALEXSANDRA HAWKINS [place] MYOCARDIAL PERFUSION SPECT - STRESS AND REST [...] trium is mildly dilated. 6. There is xmzn-xu-svafickz aortic regurgitation. 7. Uowh-ct-bbzzi ate mitral regurgitation is present. 8. There [...] is mildly calcified. Aortic Valve: There is bsle-tq-chbdprni aortic regurgitation. Aort ic Valve: There is no evidence of significant aortic stenosis. Mitral Valve: The mitral louis ve is normal. Mitral Valve: Vdys-yw-brsqnwzr mitral regurgitation is present. Mitral Valve : Moderate mitral annular calcification present. Mitral Valve: Mild thickening of the anter ior mitral valve leaflet. Mitral Valve: There is mild thickening of the posterior mitral va lve leaflet. Tricuspid Valve: The tricuspid valve appears structurally normal. Tricuspid Va lve: Cemo-po-dqkuputc tricuspid regurgitation present. Tricuspid Valve: There is [...] 0.05 m/s EPSS: 1.21 cm AR Dec Hardeman: 1.60 m/s2 AR Dec Time: 1757.97 ms [...] TV A Mc: 0.93 m/s TV Dec Hardeman: 4.08 m/s2 TV Dec Time: 135.12 ms TV E Mc: 0.55 m/s TV E/A Ratio: 0.58 Candy Attendant: LOLY Authenticated by: Christiano Guzman MD Report Date/Time: 05-01-2014 16:13:14 05/01/2014 1. Overall left ventricular systolic function is moderately impaired with, an EF between 30 - 40 %. 2. The left ventricle is markedly dilated. 3. mid anteroseptal - akinetic ; 4. apex - akinetic; 5. The left atrium is mildly dilated. 6. There is fzsn-ad-yjhzucod a ortic regurgitation. 7. Jatd-oz-yotttnkl mitral regurgitation is present. 8. There is modera te pulmonary hypertension. 9. The right ventricular systolic pressure (pulmonary artery syst olic pressure), as measured by Doppler, is 62.61mmHg. 10. There is a small pericardial effus ion is located near the right ventricle. 11. There is no evidence of cardiac tamponade. Nm Cardiovascular Stress Treadmill 05/05/2014 This procedure was resulted in [place] (the cardiology system). Please see the Medi [...] Nuc study Reviewed. No significant ischemia. Her HI is old. Reason for admission was anemia, [...] atrium is mildly dilated. 6. There is ivpu-zo-aoehinra aort ic regurgitation. 7. Lqoe-qa-gwruyepl mitral regurgitation is present. 8. There is [...] Service: Hospitalist Author Type: Physician Filed: 05/05/14 2829 Date of Service: 05/05/14 1200 Status: Signed Laser Engraver: Aylin White MD (Physician) [facility] Service: Hospitalist Progress Note Hospital Day: [...] hours No results found for this basename: PHART:3,PO2ART:3,RQF6VFX:3,R1VUESDM:3,BEART:[address] 168 hours Lab [...] trium is mildly dilated. 6. There is hwkg-oj-szccmluo aortic regurgitation. 7. Gfrc-fx-ivaae ate mitral regurgitation is present. 8. There [...] is mildly calcified. Aortic Valve: There is ghyn-ew-exxxikwq aortic regurgitation. Aort ic Valve: There is no evidence of significant aortic stenosis. Mitral Valve: The mitral louis ve is normal. Mitral Valve: Tjho-mc-siyamhpm mitral regurgitation is present. Mitral Valve : Moderate mitral annular calcification present. Mitral Valve: Mild thickening of the anter ior mitral valve leaflet. Mitral Valve: There is mild thickening of the posterior mitral va lve leaflet. Tricuspid Valve: The tricuspid valve appears structurally normal. Tricuspid Va lve: Ftws-co-prmkeyoe tricuspid regurgitation present. Tricuspid Valve: There is [...] 0.05 m/s EPSS: 1.21 cm AR Dec Hardeman: 1.60 m/s2 AR Dec Time: 1757.97 ms [...] TV A Mc: 0.93 m/s TV Dec Hardeman: 4.08 m/s2 TV Dec Time: 135.12 ms TV E Mc: 0.55 m/s TV E/A Ratio: 0.58 Candy Attendant: LOLY Authenticated by: Christiano Guzman MD Report Date/Time: 05-01-2014 16:13:14 05/01/2014 1. Overall left ventricular systolic function is moderately impaired with, an EF between 30 - 40 %. 2. The left ventricle is markedly dilated. 3. mid anteroseptal - akinetic ; 4. apex - akinetic; 5. The left atrium is mildly dilated. 6. There is rqxg-tz-kitjzmoy a ortic regurgitation. 7. Jzdi-ni-ulauyrzc mitral regurgitation is present. 8. There is [...] was stopped ye day. Discussed case with mannequin wig maker, plan to order Lasix 20 mg daily. [...] Date of Service: 05/05/14 1147 Status: Signed Laser Engraver: Leandro Terrell MD (Physician) Nuc study Reviewed. No significant ischemia. Her HI is old. Reason for admission was anemia, no need for further cardia work up. Would benefit from bet a blockers for decreased LV function. Rula Dillon MD - 05/05/2014 11:35 AM PDT Progress Notes by Leandro Terrell MD at 05/05/14 1135 Author: Leandro Terrell MD Service: (none) Author Type: Physician Filed: 05/05/146 Date of Service: 05/05/14 1135 Status: Signed Laser Engraver: Leandro Terrell MD (Physician) Feels well. VSS. Hgb 11.1 today. Creatinine stable. Nuc test today, await results. Arlyn Avery MD - 05/05/2014 10:12 AM PDTFormatting of this note might be different from the origi nal. Progress Notes by Hortensia Patel MD at 05/05/14 1012 Author: Hortensia Patel MD Service: Nephrology Author Type: Physician Filed: 05/05/141958 Date of Service: 05/05/14 1012 Status: Signed Laser Engraver: Hortensia Patel MD (Physician) [facility] Service: NEPHROLOGY Progress Note Alexsandra Hawkins 83 y.o. [id number] 4460/4460-1 female [facility] Day: LOS: 4 days SUBJECTIVE Patient seen [...] Results Component Value Date PTHINTACT 93* 05/02/2014 [id number] <12* 05/02/2014 Lab Results Component Value Date [id number] 263 05/02/2014 Lab Results Component Value Date [...] trium is mildly dilated. 6. There is yeje-ec-xeanorif aortic regurgitation. 7. Lbyk-zx-xpdpz ate mitral regurgitation is present. 8. There [...] is mildly calcified. Aortic Valve: There is ierh-ne-hixesyke aortic regurgitation. Aort ic Valve: There is no evidence of significant aortic stenosis. Mitral Valve: The mitral louis ve is normal. Mitral Valve: Hkge-ui-aajjnhzj mitral regurgitation is present. Mitral Valve : Moderate mitral annular calcification present. Mitral Valve: Mild thickening of the anter ior mitral valve leaflet. Mitral Valve: There is mild thickening of the posterior mitral va lve leaflet. Tricuspid Valve: The tricuspid valve appears structurally normal. Tricuspid Va lve: Wkwi-tk-mtzxadpv tricuspid regurgitation present. Tricuspid Valve: There is [...] 0.05 m/s EPSS: 1.21 cm AR Dec Hardeman: 1.60 m/s2 AR Dec Time: 1757.97 ms [...] TV A Mc: 0.93 m/s TV Dec Hardeman: 4.08 m/s2 TV Dec Time: 135.12 ms TV E Mc: 0.55 m/s TV E/A Ratio: 0.58 Candy Attendant: LOLY Authenticated by: Christiano Guzman MD Report Date/Time: 05-01-2014 16:13:14 05/01/2014 1. Overall left ventricular systolic function is moderately impaired with, an EF between 30 - 40 %. 2. The left ventricle is markedly dilated. 3. mid anteroseptal - akinetic ; 4. apex - akinetic; 5. The left atrium is mildly dilated. 6. There is bsdr-mk-glqioash a ortic regurgitation. 7. Nbtv-fn-kwzkwqvy mitral regurgitation is present. 8. There is modera te pulmonary hypertension. 9. The right ventricular systolic pressure (pulmonary artery syst olic pressure), as measured by Doppler, is 62.61mmHg. 10. There is a small pericardial effus ion is located near the right ventricle. 11. There is no evidence of cardiac tamponade. Nm Cardiovascular Stress Treadmill 05/05/2014 This procedure was resulted in [place] (the cardiology system). Please see the Medi [...] Nuc study Reviewed. No significant ischemia. Her HI is old. Reason for admission was anemia, [...] atrium is mildly dilated. 6. There is hpno-mm-iloqestm aort ic regurgitation. 7. Tvtw-kr-tkwlgdhp mitral regurgitation is present. 8. There is [...] 05/04/142039 Date of Service: 05/04/141120 Status: Signed Laser Engraver: Hortensia Patel MD (Physician) [facility] Service: NEPHROLOGY Progress Note Alexsandra Hawkins 83 y.o. [id number] 4460/4460-1 female [facility] Hospital Day: LOS: 3 days SUBJECTIVE [...] on file Social History Narrative Resident of [place] since at least 2004.Ongoing smoker with about [...] Results Component Value Date PTHINTACT 93* 05/02/2014 [id number] <12* 05/02/2014 Lab Results Component Value Date [id number] 263 05/02/2014 Lab Results Component Value Date [...] trium is mildly dilated. 6. There is bxna-lk-wotwycba aortic regurgitation. 7. Vrag-hc-axqtc ate mitral regurgitation is present. 8. There [...] is mildly calcified. Aortic Valve: There is pxag-au-tnonixor aortic regurgitation. Aort ic Valve: There is no evidence of significant aortic stenosis. Mitral Valve: The mitral louis ve is normal. Mitral Valve: Hyse-zo-sqnmfyzt mitral regurgitation is present. Mitral Valve : Moderate mitral annular calcification present. Mitral Valve: Mild thickening of the anter ior mitral valve leaflet. Mitral Valve: There is mild thickening of the posterior mitral va lve leaflet. Tricuspid Valve: The tricuspid valve appears structurally normal. Tricuspid Va lve: Deqq-aq-uwvvqake tricuspid regurgitation present. Tricuspid Valve: There is [...] 0.05 m/s EPSS: 1.21 cm AR Dec Hardeman: 1.60 m/s2 AR Dec Time: 1757.97 ms [...] TV A Mc: 0.93 m/s TV Dec Hardeman: 4.08 m/s2 TV Dec Time: 135.12 ms TV E Mc: 0.55 m/s TV E/A Ratio: 0.58 Candy Attendant: LOLY Authenticated by: Christiano Guzman MD Report Date/Time: 05-01-2014 16:13:14 05/01/2014 1. Overall left ventricular systolic function is moderately impaired with, an EF between 30 - 40 %. 2. The left ventricle is markedly dilated. 3. mid anteroseptal - akinetic ; 4. apex - akinetic; 5. The left atrium is mildly dilated. 6. There is enpf-qv-gxyptifc a ortic regurgitation. 7. Dlai-ax-xmfcfgge mitral regurgitation is present. 8. There is [...] atrium is mildly dilated. 6. There is inuq-fe-twunuxcv aort ic regurgitation. 7. Pcnq-rc-cmnpperw mitral regurgitation is present. 8. There is [...] 05/04/14911 Date of Service: 05/04/14911 Status: Signed Laser Engraver: Leandro Terrell MD (Physician) Feels baseline. VS. No change in plan. She did not have an HI this admission. Matthew Molina MD - 05/04/2014 8:16 AM PDTFormatting of this note might be different from the origin al. Progress Notes by Aylin White MD at 05/04/14815 Author: Aylin White MD Service: Hospitalist Author Type: Physician Filed: 05/04/14 1326 Date of Service: 05/04/14815 Status: Signed Laser Engraver: Aylin White MD (Physician) [facility] Service: Hospitalist Progress Note Hospital Day: [...] hours No results found for this basename: PHART:3,PO2ART:3,ZSH6TYG:3,W4RDSSCQ:3,BEART:[address] 168 hours Lab [...] trium is mildly dilated. 6. There is hcwt-we-fyypsmev aortic regurgitation. 7. Zmjo-gd-gshtg ate mitral regurgitation is present. 8. There [...] is mildly calcified. Aortic Valve: There is ejkm-sd-emtejvvp aortic regurgitation. Aort ic Valve: There is no evidence of significant aortic stenosis. Mitral Valve: The mitral louis ve is normal. Mitral Valve: Fiul-lt-jqhyyhra mitral regurgitation is present. Mitral Valve : Moderate mitral annular calcification present. Mitral Valve: Mild thickening of the anter ior mitral valve leaflet. Mitral Valve: There is mild thickening of the posterior mitral va lve leaflet. Tricuspid Valve: The tricuspid valve appears structurally normal. Tricuspid Va lve: Hllf-lx-flbfkmwr tricuspid regurgitation present. Tricuspid Valve: There is [...] 0.05 m/s EPSS: 1.21 cm AR Dec Hardeman: 1.60 m/s2 AR Dec Time: 1757.97 ms [...] TV A Mc: 0.93 m/s TV Dec Hardeman: 4.08 m/s2 TV Dec Time: 135.12 ms TV E Mc: 0.55 m/s TV E/A Ratio: 0.58 Candy Attendant: LOLY Authenticated by: Christiano Guzman MD Report Date/Time: 05-01-2014 16:13:14 05/01/2014 1. Overall left ventricular systolic function is moderately impaired with, an EF between 30 - 40 %. 2. The left ventricle is markedly dilated. 3. mid anteroseptal - akinetic ; 4. apex - akinetic; 5. The left atrium is mildly dilated. 6. There is uiif-sl-uwlypkcf a ortic regurgitation. 7. Ewvx-fk-vkewbnzz mitral regurgitation is present. 8. There is [...] Date of Service: 05/03/14 1110 Status: Signed Laser Engraver: Aminta Perry MD (Physician) PCP : LOIS [...] atrium is mildly dilated. 6. There is obtn-rp-sxlothlb aort ic regurgitation. 7. Kbjm-fg-wqhfnyfv mitral regurgitation is present. 8. There is [...] charting completed later after rounds. Dictation software, [employer], used which may contain error for similar sounding words. Personal communication requested for any clarification. 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 Dr. Patel will assume nephrology care as of 10 pm 05/03/14 Leandro Dillon MD - 05/03/2014 9:07 AM PDTFormatting of this note might be different from the origin al. Progress Notes by Leandro Terrell MD at 05/03/14 0907 Author: Leandro Terrell MD Service: (none) Author Type: Physician Filed: 05/03/14 0908 Date of Service: 05/03/14 0907 Status: Signed Laser Engraver: Leandro Terrell MD (Physician) Transfused. Hgb 10. [...] Date of Service: 05/03/14 0833 Status: Signed Laser Engraver: Aylin White MD (Physician) [facility] Service: Hospitalist Progress Note Hospital Day: [...] hours No results found for this basename: PHART:3,PO2ART:3,UFD1VEU:3,J1LVVXET:3,BEART:[address] 168 hours Lab [...] trium is mildly dilated. 6. There is tsmn-wr-swcicwxp aortic regurgitation. 7. Lqhd-xv-wzfxu ate mitral regurgitation is present. 8. There [...] is mildly calcified. Aortic Valve: There is qjcg-ae-ovnnkimw aortic regurgitation. Aort ic Valve: There is no evidence of significant aortic stenosis. Mitral Valve: The mitral louis ve is normal. Mitral Valve: Asge-zk-hixaztoy mitral regurgitation is present. Mitral Valve : Moderate mitral annular calcification present. Mitral Valve: Mild thickening of the anter ior mitral valve leaflet. Mitral Valve: There is mild thickening of the posterior mitral va lve leaflet. Tricuspid Valve: The tricuspid valve appears structurally normal. Tricuspid Va lve: Cdpg-mk-urmtvstw tricuspid regurgitation present. Tricuspid Valve: There is [...] 0.05 m/s EPSS: 1.21 cm AR Dec Hardeman: 1.60 m/s2 AR Dec Time: 1757.97 ms [...] TV A Mc: 0.93 m/s TV Dec Hardeman: 4.08 m/s2 TV Dec Time: 135.12 ms TV E Mc: 0.55 m/s TV E/A Ratio: 0.58 Candy Attendant: LOLY Authenticated by: Christiano Guzman MD Report Date/Time: 05-01-2014 16:13:14 05/01/2014 1. Overall left ventricular systolic function is moderately impaired with, an EF between 30 - 40 %. 2. The left ventricle is markedly dilated. 3. mid anteroseptal - akinetic ; 4. apex - akinetic; 5. The left atrium is mildly dilated. 6. There is fgrz-mo-uvdcmyor a ortic regurgitation. 7. Qigr-cb-bimkdwkv mitral regurgitation is present. 8. There is [...] Management by Moustapha Parra RN at 05/02/14 1135 Author: Moustapha Parra RN Service: (none) Author Type: Biodiesel Technology Manager Filed: 05/02/14 1549 Date of Service: 05/02/14 4279 Status: Signed Laser Engraver: Moustapha Parra RN (Biodiesel Technology Manager) 05/02/14 8508 Discharge Planning Evaluation Admitting Diagnosis SOB, elevated [...] Date of Service: 05/02/14 1045 Status: Signed Laser Engraver: Ngoc Dial RN (Registered Nurse) Pt started [...] Service: Hospitalist Author Type: Physician Filed: 05/02/14 5775 Date of Service: 05/02/14 0808 Status: Signed Laser Engraver: Aylin White MD (Physician) [facility] Service: Hospitalist Progress Note Hospital Day: [...] hours No results found for this basename: PHART:3,PO2ART:3,NGN7HYF:3,L7IFZNLI:3,BEART:[address] 168 hours Lab [...] trium is mildly dilated. 6. There is ewzs-zz-pqzcrflf aortic regurgitation. 7. Qmuz-ht-btozb ate mitral regurgitation is present. 8. There [...] is mildly calcified. Aortic Valve: There is mmip-qh-bnbidmjj aortic regurgitation. Aort ic Valve: There is no evidence of significant aortic stenosis. Mitral Valve: The mitral louis ve is normal. Mitral Valve: Lshm-rm-zyifwtkx mitral regurgitation is present. Mitral Valve : Moderate mitral annular calcification present. Mitral Valve: Mild thickening of the anter ior mitral valve leaflet. Mitral Valve: There is mild thickening of the posterior mitral va lve leaflet. Tricuspid Valve: The tricuspid valve appears structurally normal. Tricuspid Va lve: Eqbd-vc-dikdknmc tricuspid regurgitation present. Tricuspid Valve: There is [...] 0.05 m/s EPSS: 1.21 cm AR Dec Hardeman: 1.60 m/s2 AR Dec Time: 1757.97 ms [...] TV A Mc: 0.93 m/s TV Dec Hardeman: 4.08 m/s2 TV Dec Time: 135.12 ms TV E Mc: 0.55 m/s TV E/A Ratio: 0.58 Candy Attendant: LOLY Authenticated by: Christiano Guzman MD Report Date/Time: 05-01-2014 16:13:14 05/01/2014 1. Overall left ventricular systolic function is moderately impaired with, an EF between 30 - 40 %. 2. The left ventricle is markedly dilated. 3. mid anteroseptal - akinetic ; 4. apex - akinetic; 5. The left atrium is mildly dilated. 6. There is lupn-le-mrlvgvla a ortic regurgitation. 7. Oboj-rj-ttovyvhe mitral regurgitation is present. 8. There is [...] face history, physical examination, chart review, computerized telephone order clerk, formulating plan of care. Aylin White MD [...] 0457 Date of Service: 05/01/142029 Status: Signed Laser Engraver: Terrie Hernandez RN (Registered Nurse) Pt had [...] Date of Service: 05/01/14 131 Status: Signed Laser Engraver: Carmela Dial RPH (Pharmacist) Clinical Pharmacy Note - Renal Dose Adjustment Alexsandra Hawkins 83 y.o. female Ht Readings from Last 1 Encounters: 05/01/14 1.499 m (4' 11") Wt Readings from Last 1 Encounters: No data found for Wt CREATININE Date Value Range Status 05/01/2014 2.05* 0.50 - 1.00 mg/dL Final Testing performed at [facility];[address] [place] [address];[place] [address] Creatinine clearance cannot be calculated - Unknown [...] Service: (none) Author Type: Physician Filed: 05/01/14 1908 Date of Service: 05/01/14 112 Status: Addendum Laser Engraver: Gabino Sky DO (Physician) Related Notes: Original Note by Gabino Sky DO (Physician) filed at 05/01/141907 HISTORY AND PHYSICAL for Alexsandra Hawkins female 1930 83 y.o. who is being admitted to the adult hospitalist service at [facility]. Chief complaint: dyspnea History of present illness: Symptoms began 3 days ago, first noted when she got off the ruby ttle for [employer] and she got short of breath walking [...] no n/v/c/d, no CP. She presented at [facility] for evaluation, where they suspected heart failure a nd noted elevated cardiac enzymes, at which point they transferred patient to [facility] ED for fu rther care. In our [...] 114 with J-point elevations V1-3 Labwork at [facility] similar to our bloodwork - troponin there was 0.698, and BNP 2390 Assessment/Plan: (The first item is the principle problem) Dyspnea, Hypoxia, Orthopnea Suspect heart failure (unknown diastolic/systolic, though likely acute) with a BNP of 2390. I have ordered CXR and echo to help clarify this diagnosis. IV Lasix was given at [facility], and I will repeat dose x1 [...] insulin sliding scale and low-dose long-acting insulin, cnc maintenance mechanic, and check Ha1c. Date of admission: 05/01/2014 [...] 0951 Date of Service: 05/05/14949 Status: Signed Laser Engraver: NIKITA Arceo (Advanced Registered Nurse Practitioner) Pre-procedure Diagnoses: 1. Chest pain [786.50] Post-procedure Diagnoses: 1. Chest pain [786.50] Procedures: 1. NM MYOCARDIAL PERFUSION SPECT - STRESS AND REST [NSE611 (Custom)] [facility] Service: Diagnostic Imaging/Nuclear Medicine Cardiac Stress Test [...] 1118 Date of Service: 05/06/141109 Status: Addendum Laser Engraver: Ritesh Gibson MD (Physician) Related Notes: Original Note by Ritesh Gibson MD (Physician) filed at 05/06/14 1118 Consult Orders: 1. Inpatient consult to GI [[id number]] ordered by Aylin White MD at 05/05/14 6312 [facility] Service: Gastroenterology Initial Consult Note Date [...] on file Social History Narrative Resident of [place] since at least 2004.Ongoing smoker with about [...] VITAMIN B12: Lab Results Component Value Date [id number] 05/02/2014 FOLATE: Lab Results Component Value [...] Consult* by Aminta Perry MD at 05/02/14 8339 Author: Aminta Perry MD Service: Nephrology Author Type: Physician Filed: 05/02/14 1528 Date of Service: 05/02/14 0460 Status: Signed Laser Engraver: Aminta Perry MD (Physician) [facility] Service: NEPHROLOGY CONSULT Note Alexsandra Hawkins 83 y.o. 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 Irregular follow up [facility] physician. Ongoing tobacco abuse. Pertinent negative Hx: Autoimmune disorder Recurrent/frequent UTI/Pyelonephritis. Remote rheumatic fever Hepatitis Recent/remote gout. Recent or remote IVDU or blood transfusion. Recent/remote nephrolithiasis Malignancy Tuberculosis Sarcoidosis Current hospitalization with shortness of breath. Summary of current hospitalization: Initially went to [facility] with shortness of breath (sub acute onset, progres sive, without any aggravating or relieving factors). No fever or chest pain. Became short of breath over a day or so (first decided to seek help when she couldn't walk to [place] from the shuttle, something that had never happened before). Went to [facility] where work up revealed elevated troponin level and was trans ferred to [facility]. Subsequent evaluation revealed systolic CHF with EF around 40%, profound anemia and persist ent elevated troponin along with renal insufficiency. [place] to be volume overloaded and started on [...] factors: none Work up: Previous evaluation by mannequin wig maker: No Urinalysis and Imaging of the urinary [...] atrium is mildly dilated. 6. There is jcsd-ss-eyqkdufd a ortic regurgitation. 7. Rlcg-wz-qtjiqpnb mitral regurgitation is present. 8. There is [...] part in the care of Alexsandra Hawkins [facility] multiple complex medical problems. Do not hesitate to contact me if you have any questions. AMINTA PERRY MD 05/02/2014 Seen earlier in the day and charting completed later after rounds. Dictation software, [employer], used which may contain error for similar sounding words. Personal communication requested for any clarification. 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 avage, Leandro moser MD - 05/02/2014 9:05 AM PDTFormatting of this note might be different from the origin al. Consults by Leandro Terrell MD at 05/02/14 0905 Author: Leandro Terrell MD Service: (none) Author Type: Physician Filed: 05/05/14 1140 Date of Service: 05/02/14904 Status: Signed Laser Engraver: Leandro Terrell MD (Physician) Related Notes: Original [...] ignored that. She was going to the [employer], which is her d aily routine, and [...] for evalu ation of possible acute anterior HI. She did not complain of any chest [...] by Cristal Garcia RD, HARLEY at 05/01/14 5622 Author: Cristal Garcia RD, CDE Service: (none) Author Type: Caddie Filed: 05/01/14 1408 Date of Service: 05/01/14 1456 Status: Signed Laser Engraver: Cristal Garcia RD, CDE (Caddie) Consult Orders: 1. Caddie Consult [[id number]] ordered by Gabino Sky DO at 05/01/14 [...] diagnostic procedure. Cristal Garcia RD, MPH, CDE, Caddie 05/01/2014 2:08 PM docume nted in this encounter ED Notes Gomez Whitehead DO - 05/01/2014 10:25 AM PDTFormatting of this note might be differen t from the original. ED Provider Notes by Gomez Whitehead DO at 05/01/14 1025 Author: Gomez Whitehead DO Service: (none) Author Type: Physician Filed: 05/01/14 1144 Date of Service: 05/01/14 1025 Status: Signed Laser Engraver: Gomez Whitehead DO (Physician) Procedure Orders: 1. Critical Care [[id number]] ordered by Gomez Whitehead DO at 05/01/14 1143 [facility] Department of Emergency Medicine Provider Name: report from Valeria [facility]H at [facility] Pertinent History and Concerns: ST elevation leads [...] ED Department Course Patient is transferred from [facility] due to 2 new-onset congestive heart failur e and mild elevation of her troponin and a BNP of 2400. Patient also was noted to have mild ST elevations in leads V1 through V4, this was discussed with Dr. Wade who stated the lyric ent is not undergoing an acute ST elevation HI. I will repeat the patient's troponin and re peat basic labs, I anticipate admitting the patient to the hospitalist service and they will arrange for cardiology consult as needed. Differential diagnosis includes but is not limit ed to: New-onset congestive heart failure, acute non-ST elevation HI, pneumonia, pulmonary e annmarie [address] Sky who agrees with care plan and will see patient in the ED . Records Reviewed Old medical records. Nursing notes. Laboratory Evaluation Results Procedure Component Value Ref Range Date/Time Cardiac Panel [[id number]] (Abnormal) Collected:05/01/14 1010 Order Status:Completed Updated:05/01/14 1038 [...] ng/mL CK-MB Index 5.2 POC cardiac troponin [[id number]] (Abnormal) Collected:05/01/14 1014 Order Status:Completed Updated:05/01/14 1028 POC CARDIAC TROPONIN 0.86 (HH) 0.00 - 0.10 ng/mL I personally reviewed the lab results and they have been posted to the chart. Pertinent po sitive and negative findings have been addressed appropriately. Radiology and EKG Evaluation Imaging Results None EKG Interpretation Rhythm: Sinus Ventricular Rate: 109 ME Interval: Normal ST Segments: Elevation present in [...] Date of Service: 05/01/14 1015 Status: Signed Laser Engraver: Anny Subramanian RN (Registered Nurse) Pt placed on continous cardiac monitoring, tele notified Anny Subramanian RN 05/01/14 1016 onver dave Transaction, Provider Unknown - 05/01/2014 9:56 AM PDT ED Notes by Anny Subramanian RN at 05/01/14 0956 Author: Anny Subramanian RN Service: (none) Author Type: Registered Nurse Filed: 05/01/14 1017 Date of Service: 05/01/14 0956 Status: Signed Laser Engraver: Anny Subramanian RN (Registered Nurse) Pt became [...] Date of Service: 05/01/14 0942 Status: Signed Laser Engraver: Anny Subramanian RN (Registered Nurse) Bed:13
Expected date:
Expected time:
Means of arrival:
Comments:
rabSantos dennis MD - 05/01/2014 8:21 AM PDT ED Provider Notes by Santos Fabian MD at 05/01/14820 Author: Santos Fabian MD Service: (none) Author Type: Physician Filed: 05/01/14821 Date of Service: 05/01/14820 Status: Signed Laser Engraver: Santos Fabian MD (Physician) Alexsandra Hawkins, 83-year-old [facility] emergency department Presents with shortness of breath, [...] 1413 Date of Service: 05/07/141410 Status: Signed Laser Engraver: Ritesh Gibson MD (Physician) [facility] Service: Gastroenterology ENDOSCOPY SUITE PROCEDURE NOTE Colonoscopy [...] 1411 Date of Service: 05/07/141406 Status: Signed Laser Engraver: Ritesh Gibson MD (Physician) [facility] Service: Gastroenterology ENDOSCOPY SUITE PROCEDURE NOTE Esophagogastroduodenoscopy [...] | | | Fingerstick | performed at [facility];[address] | | LAB | | | | [address] [place] | | | | | | [address] | | | | + + + [...] | | | Fingerstick | performed at [facility];[address] | | LAB | | | | [address];[place], [place] | | | | | | [address] | | | | + + + [...] | | | Fingerstick | performed at [facility] | | LAB | | | | [address] [place] | | | | | | [address] | | | | + + + [...] | | | | | | [place] [address] | | | | + + + + + + | Non- | 4.34Comment: Testing | 3.70 - 5.10 | EXTERNAL | | | Red Blood | performed at [facility], [address] | M/uL | LAB | | | Cells | [address], | | | | | Counted | [place] [address] | | | | + + + + + + | Hemoglobin | 11.1 (L)Comment: Testing | 11.3 - 15.5 | EXTERNAL | | | | performed at [facility], [address] | g/dL | LAB | | | | [address], | | | | | | [place] [address] | | | | + + + + + + | Hematocrit, | 33.4 (L)Comment: Testing | 34.0 - 46.0 % | EXTERNAL | | | POC | performed at [facility], [address] | | LAB | | | | [address], | | | | | | [place] [address] | | | | + + + + + + | MCV | 76.8 (L)Comment: Testing | 80.0 - 100.0 fl | EXTERNAL | | | | performed at [facility], [address] | | LAB | | | | [address], | | | | | | [place] [address] | | | | + + + + + + | MCH | 25.5 (L)Comment: Testing | 27.0 - 34.0 pg | EXTERNAL | | | | performed at [facility], [address] | | LAB | | | | [address], | | | | | | [place] [address] | | | | + + + + + + | MCHC | 33.2Comment: Testing | 32.0 - 35.5 | EXTERNAL | | | | performed at [facility], [address] | g/dL | LAB | | | | [address], | | | | | | [place] [address] | | | | + + + + + + | RDW-CV | 45.9Comment: Testing | 37 - 53 fl | EXTERNAL | | | | performed at [facility], [address] | | LAB | | | | [address], | | | | | | [place] [address] | | | | + + + + + + | Platelet | 245Comment: Testing | 150 - 400 K/uL | EXTERNAL | | | Count | performed at [facility], [address] | | LAB | | | Plasma | [address], | | | | | | [place] [address] | | | | + + + + + + | MPV | 8.8Comment: Testing | fl | EXTERNAL | | | | performed at [facility], [address] | | LAB | | | | [address], | | | | | | [place] [address] | | | | + + + + + + | Differentia | AUTOMATEDComment: | | EXTERNAL | | | l Type | Testing performed at | | LAB | | | | [facility], [address] | | | | | | [place] | | | | | | [address] | | | | + + + + + + | % Segmented | 63.4Comment: Testing | % | EXTERNAL | | | | performed at [facility], [address] | | LAB | | | Neutrophils | [address], | | | | | | [place] [address] | | | | + + + + + + | % | 23.7Comment: Testing | % | EXTERNAL | | | Lymphocytes | performed at [facility], [address] | | LAB | | | | [address], | | | | | | [place] [address] | | | | + + + + + + | % Monocytes | 8.5Comment: Testing | % | EXTERNAL | | | | performed at [facility], [address] | | LAB | | | | [address], | | | | | | [place] [address] | | | | + + + + + + | % | 3.7Comment: Testing | % | EXTERNAL | | | Eosinophils | performed at [facility], [address] | | LAB | | | | [address], | | | | | | [place] [address] | | | | + + + + + + | % Basophils | 0.7Comment: Testing | % | EXTERNAL | | | | performed at [facility], [address] | | LAB | | | | [address], | | | | | | [place] [address] | | | | + + + + + + | Absolute | 5.4Comment: Testing | 1.9 - 7.4 K/uL | EXTERNAL | | | Segmented | performed at [facility], [address] | | LAB | | | Neutrophils | [address], | | | | | | [place] [address] | | | | + + + + + + | Absolute | 2.0Comment: Testing | 1.0 - 3.9 K/uL | EXTERNAL | | | Lymphocytes | performed at [facility], [address] | | LAB | | | | [address], | | | | | | [place] [address] | | | | + + + + + + | Absolute | 0.7Comment: Testing | 0 - 0.8 K/uL | EXTERNAL | | | Monocytes | performed at [facility], [address] | | LAB | | | | [address], | | | | | | [place] [address] | | | | + + + + + + | Absolute | 0.3Comment: Testing | 0 - 0.5 K/uL | EXTERNAL | | | Eosinophils | performed at [facility], [address] | | LAB | | | | [address], | | | | | | [place] [address] | | | | + + + + + + | Absolute | 0.1Comment: Testing | 0 - 0.1 K/uL | EXTERNAL | | | Basophils | performed at [facility], [address] | | LAB | | | | [address], | | | | | | [place] [address] | | | | + + + + + + | RBC | Comment: 1+ | | EXTERNAL | | | Morphology | Anisocytosis1+ | | LAB | | | | Hypochromia1+ | | | | | | MicrocytosisTesting | | | | | | performed at [facility], [address] | | | | | | [address], | | | | | | [place] [address] | | | | + + + [...] EXTERNAL | | | | performed at [facility], [address] | | LAB | | | | [place], | | | | | | [place] [address] | | | | + + + [...] EXTERNAL | | | | performed at [facility], [address] | | LAB | | | | [place] [place], | | | | | | [place] [address] | | | | + + + [...] | | | | | [place] [address] | | | | + + + + + + | K | 4.2Comment: Testing | 3.5 - 4.9 | EXTERNAL | | | | performed at [facility], [address] | mmol/L | LAB | | | | [place], | | | | | | [place] [address] | | | | + + + + + + | Cl | 105Comment: Testing | 99 - 109 mmol/L | EXTERNAL | | | | performed at [facility], [address] | | LAB | | | | [address], | | | | | | [place] [address] | | | | + + + + + + | CO2 | 26Comment: Testing | 23 - 32 mmol/L | EXTERNAL | | | | performed at [facility], [address] | | LAB | | | | [address], | | | | | | [place] [address] | | | | + + + + + + | Anion Gap | 10Comment: Testing | 5 - 20 mmol/L | EXTERNAL | | | | performed at [facility], [address] | | LAB | | | | [address], | | | | | | [place] [address] | | | | + + + + + + | Glucose, | 98Comment: Testing | 65 - 99 mg/dL | EXTERNAL | | | Fasting | performed at [facility], [address] | | LAB | | | | [address], | | | | | | [place] [address] | | | | + + + + + + | BUN | 44 (H)Comment: Testing | 8 - 25 mg/dL | EXTERNAL | | | | performed at [facility], [address] | | LAB | | | | [address], | | | | | | [place] [address] | | | | + + + + + + | Creatinine | 1.68 (H)Comment: Testing | 0.50 - 1.00 | EXTERNAL | | | | performed at [facility], [address] | mg/dL | LAB | | | | [address], | | | | | | [place] [address] | | | | + + + + + + | BUN/Creatin | 26Comment: Testing | | EXTERNAL | | | ine Ratio | performed at [facility], [address] | | LAB | | | | [address], | | | | | | [place] [address] | | | | + + + + + + | Calcium | 8.5Comment: Testing | 8.5 - 10.2 | EXTERNAL | | | | performed at [facility], [address] | mg/dL | LAB | | | | [place], | | | | | | [place] [address] | | | | + + + + + + | Protein, | 6.5Comment: Testing | 6.3 - 8.2 g/dL | EXTERNAL | | | Total | performed at [facility], [address] | | LAB | | | | [address], | | | | | | [place] [address] | | | | + + + + + + | Albumin | 3.5Comment: Testing | 3.3 - 4.8 g/dL | EXTERNAL | | | | performed at [facility], [address] | | LAB | | | | [place], | | | | | | [place] [address] | | | | + + + + + + | Globulin | 3.0Comment: Testing | 1.3 - 4.9 g/dL | EXTERNAL | | | | performed at [facility], [address] | | LAB | | | | [address], | | | | | | [place] [address] | | | | + + + + + + | A/G Ratio | 1.2Comment: Testing | 1.0 - 2.4 | EXTERNAL | | | | performed at [facility], [address] | | LAB | | | | [address], | | | | | | [place] [address] | | | | + + + + + + | Bilirubin | 0.4Comment: Testing | 0.1 - 1.5 mg/dL | EXTERNAL | | | Total | performed at [facility], [address] | | LAB | | | | [address], | | | | | | [place] [address] | | | | + + + + + + | ALP, | 82Comment: Testing | 35 - 115 U/L | EXTERNAL | | | External | performed at [facility], [address] | | LAB | | | | [address] [place], | | | | | | [place] [address] | | | | + + + + + + | AST | 10Comment: Testing | 10 - 45 U/L | EXTERNAL | | | | performed at [facility], [address] | | LAB | | | | [address], | | | | | | [place] [address] | | | | + + + + + + | ALT | 7 (L)Comment: Testing | 10 - 65 U/L | EXTERNAL | | | | performed at [facility], [address] | | LAB | | | | [address], | | | | | | [place] [address] | | | | + + + [...] [place], | | | | | | [place] [address] | | | | + + + [...] | | technical preparation was performed by [employer] | | | [address] [address] | | | (Training Project Manager: Lester Soni M.D.; [facility]#: [id number]). | | | Diagnostician: Cristal Garcias MD [...] | | | Fingerstick | performed at [facility];[address] | | LAB | | | | [address] [place] | | | | | | [address] | | | | + + + [...] | | | Fingerstick | performed at [facility];[address] | | LAB | | | | [address];[place], [place] | | | | | | [address] | | | | + + + [...] | | | Fingerstick | performed at [facility] | | LAB | | | | [place] | | | | | | [address] | | | | + + + [...] | | | Fingerstick | performed at [facility];[address] | | LAB | | | | [address];[place], [place] | | | | | | [address] | | | | + + + [...] | | | | | [place] [address] | | | | + + + + + + | Non- | 4.30Comment: Testing | 3.70 - 5.10 | EXTERNAL | | | Red Blood | performed at [facility], [address] | M/uL | LAB | | | Cells | [place] [place], | | | | | Counted | [place] [address] | | | | + + + + + + | Hemoglobin | 10.9 (L)Comment: Testing | 11.3 - 15.5 | EXTERNAL | | | | performed at [facility], [address] | g/dL | LAB | | | | [address], | | | | | | [place] [address] | | | | + + + + + + | Hematocrit, | 33.2 (L)Comment: Testing | 34.0 - 46.0 % | EXTERNAL | | | POC | performed at [facility], [address] | | LAB | | | | [address], | | | | | | [place] [address] | | | | + + + + + + | MCV | 77.1 (L)Comment: Testing | 80.0 - 100.0 fl | EXTERNAL | | | | performed at [facility], [address] | | LAB | | | | [address] [place], | | | | | | [place] [address] | | | | + + + + + + | MCH | 25.4 (L)Comment: Testing | 27.0 - 34.0 pg | EXTERNAL | | | | performed at [facility], [address] | | LAB | | | | [address], | | | | | | [place] [address] | | | | + + + + + + | MCHC | 33.0Comment: Testing | 32.0 - 35.5 | EXTERNAL | | | | performed at [facility], [address] | g/dL | LAB | | | | [address], | | | | | | [place] [address] | | | | + + + + + + | RDW-CV | 45.5Comment: Testing | 37 - 53 fl | EXTERNAL | | | | performed at [facility], [address] | | LAB | | | | [address], | | | | | | [place] [address] | | | | + + + + + + | Platelet | 241Comment: Testing | 150 - 400 K/uL | EXTERNAL | | | Count | performed at [facility], [address] | | LAB | | | Plasma | [address], | | | | | | [place] [address] | | | | + + + + + + | MPV | 9.1Comment: Testing | fl | EXTERNAL | | | | performed at [facility], [address] | | LAB | | | | [address], | | | | | | [place] [address] | | | | + + + + + + | Differentia | AUTOMATEDComment: | | EXTERNAL | | | l Type | Testing performed at | | LAB | | | | [facility], [address] | | | | | | [place] | | | | | | [address] | | | | + + + + + + | % Segmented | 64.8Comment: Testing | % | EXTERNAL | | | | performed at [facility], [address] | | LAB | | | Neutrophils | [address], | | | | | | [place] [address] | | | | + + + + + + | % | 22.7Comment: Testing | % | EXTERNAL | | | Lymphocytes | performed at [facility], [address] | | LAB | | | | [address], | | | | | | [place] [address] | | | | + + + + + + | % Monocytes | 8.3Comment: Testing | % | EXTERNAL | | | | performed at [facility], [address] | | LAB | | | | [address], | | | | | | [place] [address] | | | | + + + + + + | % | 3.4Comment: Testing | % | EXTERNAL | | | Eosinophils | performed at [facility], [address] | | LAB | | | | [address], | | | | | | [place] [address] | | | | + + + + + + | % Basophils | 0.8Comment: Testing | % | EXTERNAL | | | | performed at [facility], [address] | | LAB | | | | [address], | | | | | | [place] [address] | | | | + + + + + + | Absolute | 6.4Comment: Testing | 1.9 - 7.4 K/uL | EXTERNAL | | | Segmented | performed at [facility], [address] | | LAB | | | Neutrophils | [address], | | | | | | [place] [address] | | | | + + + + + + | Absolute | 2.2Comment: Testing | 1.0 - 3.9 K/uL | EXTERNAL | | | Lymphocytes | performed at [facility], [address] | | LAB | | | | [address], | | | | | | [place] [address] | | | | + + + + + + | Absolute | 0.8Comment: Testing | 0 - 0.8 K/uL | EXTERNAL | | | Monocytes | performed at [facility], [address] | | LAB | | | | [address], | | | | | | [place] [address] | | | | + + + + + + | Absolute | 0.3Comment: Testing | 0 - 0.5 K/uL | EXTERNAL | | | Eosinophils | performed at [facility], [address] | | LAB | | | | [address], | | | | | | [place] [address] | | | | + + + + + + | Absolute | 0.1Comment: Testing | 0 - 0.1 K/uL | EXTERNAL | | | Basophils | performed at [facility], [address] | | LAB | | | | [address], | | | | | | [place] [address] | | | | + + + [...] | | | | | [place] [address] | | | | + + + [...] EXTERNAL | | | | performed at [facility], [address] | | LAB | | | | [address], | | | | | | [place] [address] | | | | + + + [...] EXTERNAL | | | | performed at [facility], [address] | | LAB | | | | [address], | | | | | | [place] [address] | | | | + + + [...] | | | | | [place] [address] | | | | + + + + + + | K | 4.0Comment: Testing | 3.5 - 4.9 | EXTERNAL | | | | performed at [facility], [address] | mmol/L | LAB | | | | [address], | | | | | | [place] [address] | | | | + + + + + + | Cl | 101Comment: Testing | 99 - 109 mmol/L | EXTERNAL | | | | performed at [facility], [address] | | LAB | | | | [address], | | | | | | [place] [address] | | | | + + + + + + | CO2 | 27Comment: Testing | 23 - 32 mmol/L | EXTERNAL | | | | performed at [facility], [address] | | LAB | | | | [address], | | | | | | [place] [address] | | | | + + + + + + | Anion Gap | 11Comment: Testing | 5 - 20 mmol/L | EXTERNAL | | | | performed at [facility], [address] | | LAB | | | | [address], | | | | | | [place] [address] | | | | + + + + + + | Glucose, | 93Comment: Testing | 65 - 99 mg/dL | EXTERNAL | | | Fasting | performed at [facility], [address] | | LAB | | | | [address], | | | | | | [place] [address] | | | | + + + + + + | BUN | 53 (H)Comment: Testing | 8 - 25 mg/dL | EXTERNAL | | | | performed at [facility], [address] | | LAB | | | | [address] [place], | | | | | | [place] [address] | | | | + + + + + + | Creatinine | 1.85 (H)Comment: Testing | 0.50 - 1.00 | EXTERNAL | | | | performed at [facility], [address] | mg/dL | LAB | | | | [address], | | | | | | [place] [address] | | | | + + + + + + | BUN/Creatin | 29Comment: Testing | | EXTERNAL | | | ine Ratio | performed at [facility], [address] | | LAB | | | | [address], | | | | | | [place] [address] | | | | + + + + + + | Calcium | 8.3 (L)Comment: Testing | 8.5 - 10.2 | EXTERNAL | | | | performed at [facility], [address] | mg/dL | LAB | | | | [address], | | | | | | [place] [address] | | | | + + + + + + | Protein, | 6.3Comment: Testing | 6.3 - 8.2 g/dL | EXTERNAL | | | Total | performed at [facility], [address] | | LAB | | | | [address], | | | | | | [place] [address] | | | | + + + + + + | Albumin | 3.3Comment: Testing | 3.3 - 4.8 g/dL | EXTERNAL | | | | performed at [facility], [address] | | LAB | | | | [address], | | | | | | [place] [address] | | | | + + + + + + | Globulin | 3.0Comment: Testing | 1.3 - 4.9 g/dL | EXTERNAL | | | | performed at [facility], [address] | | LAB | | | | [address], | | | | | | [place] [address] | | | | + + + + + + | A/G Ratio | 1.1Comment: Testing | 1.0 - 2.4 | EXTERNAL | | | | performed at [facility], [address] | | LAB | | | | [address], | | | | | | [place] [address] | | | | + + + + + + | Bilirubin | 0.3Comment: Testing | 0.1 - 1.5 mg/dL | EXTERNAL | | | Total | performed at [facility], [address] | | LAB | | | | [address], | | | | | | [place] [address] | | | | + + + + + + | ALP, | 87Comment: Testing | 35 - 115 U/L | EXTERNAL | | | External | performed at [facility], [address] | | LAB | | | | [address] [place], | | | | | | [place] [address] | | | | + + + + + + | AST | 9 (L)Comment: Testing | 10 - 45 U/L | EXTERNAL | | | | performed at [facility], [address] | | LAB | | | | [address], | | | | | | [place] [address] | | | | + + + + + + | ALT | 7 (L)Comment: Testing | 10 - 65 U/L | EXTERNAL | | | | performed at [facility], [address] | | LAB | | | | [address], | | | | | | [place] [address] | | | | + + + [...] | | | | | | at [facility], [address] | | | | | | [address], | | | | | | [place] [address] | | | | + + + [...] | | | Fingerstick | performed at [facility];[address] | | LAB | | | | [address];[place], [place] | | | | | | [address] | | | | + + + [...] | | | Fingerstick | performed at [facility];[address] | | LAB | | | | [address] [place] | | | | | | [address] | | | | + + + [...] EXTERNAL LAB | | Testing performed at [facility];[address] [facility] [address] | | + + + + +---------+ [...] | | | Fingerstick | performed at [facility];[address] | | LAB | | | | [address] [place];[place] | | | | | | [address] | | | | + + + [...] At | + + + | [facility] MYOCARDIAL PERFUSION SPECT - STRESS AND [...] Mateus Young Conversion - 06/16/2019 4:04 PM [facility] MYOCARDIAL PERFUSION | | SPECT - STRESS [...] | | | Fingerstick | performed at [facility];[address] | | LAB | | | | [place] | | | | | | [address] | | | | + + + [...] EXTERNAL | | | | performed at [facility], [address] | | LAB | | | | [address] [place], | | | | | | [place] [address] | | | | + + + + + + | Non- | 4.39Comment: Testing | 3.70 - 5.10 | EXTERNAL | | | Red Blood | performed at [facility], [address] | M/uL | LAB | | | Cells | [address] [place], | | | | | Counted | [place] [address] | | | | + + + + + + | Hemoglobin | 11.1 (L)Comment: Testing | 11.3 - 15.5 | EXTERNAL | | | | performed at [facility], [address] | g/dL | LAB | | | | [address], | | | | | | [place] [address] | | | | + + + + + + | Hematocrit, | 33.3 (L)Comment: Testing | 34.0 - 46.0 % | EXTERNAL | | | POC | performed at [facility], [address] | | LAB | | | | [address], | | | | | | [place] [address] | | | | + + + + + + | MCV | 75.9 (L)Comment: Testing | 80.0 - 100.0 fl | EXTERNAL | | | | performed at [facility], [address] | | LAB | | | | [address], | | | | | | [place] [address] | | | | + + + + + + | MCH | 25.3 (L)Comment: Testing | 27.0 - 34.0 pg | EXTERNAL | | | | performed at [facility], [address] | | LAB | | | | [address], | | | | | | [place] [address] | | | | + + + + + + | MCHC | 33.3Comment: Testing | 32.0 - 35.5 | EXTERNAL | | | | performed at [facility], [address] | g/dL | LAB | | | | [address], | | | | | | [place] [address] | | | | + + + + + + | RDW-CV | 44.6Comment: Testing | 37 - 53 fl | EXTERNAL | | | | performed at [facility], [address] | | LAB | | | | [address], | | | | | | [place] [address] | | | | + + + + + + | Platelet | 246Comment: Testing | 150 - 400 K/uL | EXTERNAL | | | Count | performed at [facility], [address] | | LAB | | | Plasma | [address], | | | | | | [place] [address] | | | | + + + + + + | MPV | 9.2Comment: Testing | fl | EXTERNAL | | | | performed at [facility], [address] | | LAB | | | | [address], | | | | | | [place] [address] | | | | + + + + + + | Differentia | AUTOMATEDComment: | | EXTERNAL | | | l Type | Testing performed at | | LAB | | | | [facility], [address] | | | | | | [place] | | | | | | [address] | | | | + + + + + + | % Segmented | 70.6Comment: Testing | % | EXTERNAL | | | | performed at [facility], [address] | | LAB | | | Neutrophils | [address], | | | | | | [place] [address] | | | | + + + + + + | % | 16.8Comment: Testing | % | EXTERNAL | | | Lymphocytes | performed at [facility], [address] | | LAB | | | | [address], | | | | | | [place] [address] | | | | + + + + + + | % Monocytes | 8.7Comment: Testing | % | EXTERNAL | | | | performed at [facility], [address] | | LAB | | | | [address], | | | | | | [place] [address] | | | | + + + + + + | % | 3.1Comment: Testing | % | EXTERNAL | | | Eosinophils | performed at [facility], [address] | | LAB | | | | [address], | | | | | | [place] [address] | | | | + + + + + + | % Basophils | 0.8Comment: Testing | % | EXTERNAL | | | | performed at [facility], [address] | | LAB | | | | [address], | | | | | | [place] [address] | | | | + + + + + + | Absolute | 6.7Comment: Testing | 1.9 - 7.4 K/uL | EXTERNAL | | | Segmented | performed at [facility], [address] | | LAB | | | Neutrophils | [address], | | | | | | [place] [address] | | | | + + + + + + | Absolute | 1.6Comment: Testing | 1.0 - 3.9 K/uL | EXTERNAL | | | Lymphocytes | performed at [facility], [address] | | LAB | | | | [address], | | | | | | [place] [address] | | | | + + + + + + | Absolute | 0.8Comment: Testing | 0 - 0.8 K/uL | EXTERNAL | | | Monocytes | performed at [facility], [address] | | LAB | | | | [address], | | | | | | [place] [address] | | | | + + + + + + | Absolute | 0.3Comment: Testing | 0 - 0.5 K/uL | EXTERNAL | | | Eosinophils | performed at [facility], [address] | | LAB | | | | [address], | | | | | | [place] [address] | | | | + + + + + + | Absolute | 0.1Comment: Testing | 0 - 0.1 K/uL | EXTERNAL | | | Basophils | performed at [facility], [address] | | LAB | | | | [address], | | | | | | [place] [address] | | | | + + + + + + | RBC | Comment: 1+ | | EXTERNAL | | | Morphology | Anisocytosis1+ | | LAB | | | | Hypochromia1+ | | | | | | MicrocytosisTesting | | | | | | performed at [facility], [address] | | | | | | [address], | | | | | | [place] [address] | | | | + + + [...] EXTERNAL | | | | performed at [facility], [address] | | LAB | | | | [address], | | | | | | [place] [address] | | | | + + + [...] | | | | | [place] [address] | | | | + + + [...] | | | | | [place] [address] | | | | + + + + + + | K | 3.4 (L)Comment: Testing | 3.5 - 4.9 | EXTERNAL | | | | performed at [facility], [address] | mmol/L | LAB | | | | [address], | | | | | | [place] [address] | | | | + + + + + + | Cl | 97 (L)Comment: Testing | 99 - 109 mmol/L | EXTERNAL | | | | performed at [facility], [address] | | LAB | | | | [address], | | | | | | [place] [address] | | | | + + + + + + | CO2 | 28Comment: Testing | 23 - 32 mmol/L | EXTERNAL | | | | performed at [facility], [address] | | LAB | | | | [address], | | | | | | [place] [address] | | | | + + + + + + | Anion Gap | 12Comment: Testing | 5 - 20 mmol/L | EXTERNAL | | | | performed at [facility], [address] | | LAB | | | | [address], | | | | | | [place] [address] | | | | + + + + + + | Glucose, | 120 (H)Comment: Testing | 65 - 99 mg/dL | EXTERNAL | | | Fasting | performed at [facility], [address] | | LAB | | | | [address], | | | | | | [place] [address] | | | | + + + + + + | BUN | 56 (H)Comment: Testing | 8 - 25 mg/dL | EXTERNAL | | | | performed at [facility], [address] | | LAB | | | | [address], | | | | | | [place] [address] | | | | + + + + + + | Creatinine | 2.27 (H)Comment: Testing | 0.50 - 1.00 | EXTERNAL | | | | performed at [facility], [address] | mg/dL | LAB | | | | [address], | | | | | | [place] [address] | | | | + + + + + + | BUN/Creatin | 25Comment: Testing | | EXTERNAL | | | ine Ratio | performed at [facility], [address] | | LAB | | | [address], | | | | | | [place] [address] | | | | + + + + + + | Calcium | 8.2 (L)Comment: Testing | 8.5 - 10.2 | EXTERNAL | | | | performed at [facility], [address] | mg/dL | LAB | | | | [address], | | | | | | [place] [address] | | | | + + + + + + | Protein, | 6.6Comment: Testing | 6.3 - 8.2 g/dL | EXTERNAL | | | Total | performed at [facility], [address] | | LAB | | | | [address], | | | | | | [place] [address] | | | | + + + + + + | Albumin | 3.4Comment: Testing | 3.3 - 4.8 g/dL | EXTERNAL | | | | performed at [facility], [address] | | LAB | | | | [address], | | | | | | [place] [address] | | | | + + + + + + | Globulin | 3.2Comment: Testing | 1.3 - 4.9 g/dL | EXTERNAL | | | | performed at [facility], [address] | | LAB | | | | [address], | | | | | | [place] [address] | | | | + + + + + + | A/G Ratio | 1.1Comment: Testing | 1.0 - 2.4 | EXTERNAL | | | | performed at [facility], [address] | | LAB | | | | [address], | | | | | | [place] [address] | | | | + + + + + + | Bilirubin | 0.3Comment: Testing | 0.1 - 1.5 mg/dL | EXTERNAL | | | Total | performed at [facility], [address] | | LAB | | | | [address], | | | | | | [place] [address] | | | | + + + + + + | ALP, | 85Comment: Testing | 35 - 115 U/L | EXTERNAL | | | External | performed at [facility], [address] | | LAB | | | | [address], | | | | | | [place] [address] | | | | + + + + + + | AST | 10Comment: Testing | 10 - 45 U/L | EXTERNAL | | | | performed at [facility], [address] | | LAB | | | | [address], | | | | | | [place] [address] | | | | + + + + + + | ALT | 8 (L)Comment: Testing | 10 - 65 U/L | EXTERNAL | | | | performed at [facility], [address] | | LAB | | | | [address], | | | | | | [place] [address] | | | | + + + [...] | | | | | | at [facility], [address] | | | | | | [address], | | | | | | [place] [address] | | | | + + + [...] | | | Fingerstick | performed at [facility];[address] | | LAB | | | | [address];[place], [place] | | | | | | [address] | | | | + + + [...] | | | Fingerstick | performed at [facility] | | LAB | | | | [place] | | | | | | [address] | | | | + + + [...] | | | Fingerstick | performed at [facility];[address] | | LAB | | | | [place] | | | | | | [address] | | | | + + + [...] | | | Fingerstick | performed at [facility];[address] | | LAB | | | | [address];[place] | | | | | | [address] | | | | + + + [...] EXTERNAL | | | | performed at [facility], [address] | | LAB | | | | [address], | | | | | | [place] [address] | | | | + + + + + + | Non- | 4.23Comment: Testing | 3.70 - 5.10 | EXTERNAL | | | Red Blood | performed at [facility], [address] | M/uL | LAB | | | Cells | [address], | | | | | Counted | [place] [address] | | | | + + + + + + | Hemoglobin | 10.6 (L)Comment: Testing | 11.3 - 15.5 | EXTERNAL | | | | performed at [facility], [address] | g/dL | LAB | | | | [address], | | | | | | [place] [address] | | | | + + + + + + | Hematocrit, | 32.2 (L)Comment: Testing | 34.0 - 46.0 % | EXTERNAL | | | POC | performed at [facility], [address] | | LAB | | | | [address], | | | | | | [place] [address] | | | | + + + + + + | MCV | 76.3 (L)Comment: Testing | 80.0 - 100.0 fl | EXTERNAL | | | | performed at [facility], [address] | | LAB | | | | [address], | | | | | | [place] [address] | | | | + + + + + + | MCH | 25.0 (L)Comment: Testing | 27.0 - 34.0 pg | EXTERNAL | | | | performed at [facility], [address] | | LAB | | | | [address], | | | | | | [place] [address] | | | | + + + + + + | MCHC | 32.8Comment: Testing | 32.0 - 35.5 | EXTERNAL | | | | performed at [facility], [address] | g/dL | LAB | | | | [address], | | | | | | [place] [address] | | | | + + + + + + | RDW-CV | 44.6Comment: Testing | 37 - 53 fl | EXTERNAL | | | | performed at [facility], [address] | | LAB | | | | [address], | | | | | | [place] [address] | | | | + + + + + + | Platelet | 228Comment: Testing | 150 - 400 K/uL | EXTERNAL | | | Count | performed at [facility], [address] | | LAB | | | Plasma | [address], | | | | | | [place] [address] | | | | + + + + + + | MPV | 8.9Comment: Testing | fl | EXTERNAL | | | | performed at [facility], [address] | | LAB | | | | [address], | | | | | | [place] [address] | | | | + + + + + + | Differentia | AUTOMATEDComment: | | EXTERNAL | | | l Type | Testing performed at | | LAB | | | | [facility], [address] | | | | | | [place] | | | | | | [address] | | | | + + + + + + | % Segmented | 71.7Comment: Testing | % | EXTERNAL | | | | performed at [facility], [address] | | LAB | | | Neutrophils | [address], | | | | | | [place] [address] | | | | + + + + + + | % | 15.9Comment: Testing | % | EXTERNAL | | | Lymphocytes | performed at [facility], [address] | | LAB | | | | [address], | | | | | | [place] [address] | | | | + + + + + + | % Monocytes | 9.2Comment: Testing | % | EXTERNAL | | | | performed at [facility], [address] | | LAB | | | | [address], | | | | | | [place] [address] | | | | + + + + + + | % | 2.6Comment: Testing | % | EXTERNAL | | | Eosinophils | performed at [facility], [address] | | LAB | | | | [address], | | | | | | [place] [address] | | | | + + + + + + | % Basophils | 0.6Comment: Testing | % | EXTERNAL | | | | performed at [facility], [address] | | LAB | | | | [address], | | | | | | [place] [address] | | | | + + + + + + | Absolute | 7.6 (H)Comment: Testing | 1.9 - 7.4 K/uL | EXTERNAL | | | Segmented | performed at [facility], [address] | | LAB | | | Neutrophils | [address], | | | | | | [place] [address] | | | | + + + + + + | Absolute | 1.7Comment: Testing | 1.0 - 3.9 K/uL | EXTERNAL | | | Lymphocytes | performed at [facility], [address] | | LAB | | | | [address], | | | | | | [place] [address] | | | | + + + + + + | Absolute | 1.0 (H)Comment: Testing | 0 - 0.8 K/uL | EXTERNAL | | | Monocytes | performed at [facility], [address] | | LAB | | | | [address], | | | | | | [place] [address] | | | | + + + + + + | Absolute | 0.3Comment: Testing | 0 - 0.5 K/uL | EXTERNAL | | | Eosinophils | performed at [facility], [address] | | LAB | | | | [address], | | | | | | [place] [address] | | | | + + + + + + | Absolute | 0.1Comment: Testing | 0 - 0.1 K/uL | EXTERNAL | | | Basophils | performed at [facility], [address] | | LAB | | | | [address], | | | | | | [place] [address] | | | | + + + + + + | RBC | Comment: 1+ | | EXTERNAL | | | Morphology | Anisocytosis1+ | | LAB | | | | Hypochromia1+ | | | | | | MicrocytosisTesting | | | | | | performed at [facility], [address] | | | | | | [address], | | | | | | [place] [address] | | | | + + + [...] | | | | | [place] [address] | | | | + + + [...] EXTERNAL | | | | performed at [facility], [address] | | LAB | | | | [address], | | | | | | [place] [address] | | | | + + + [...] | | | | | [place] [address] | | | | + + + + + + | K | 3.9Comment: Testing | 3.5 - 4.9 | EXTERNAL | | | | performed at [facility], [address] | mmol/L | LAB | | | | [address], | | | | | | [place] [address] | | | | + + + + + + | Cl | 102Comment: Testing | 99 - 109 mmol/L | EXTERNAL | | | | performed at [facility], [address] | | LAB | | | | [address], | | | | | | [place] [address] | | | | + + + + + + | CO2 | 26Comment: Testing | 23 - 32 mmol/L | EXTERNAL | | | | performed at [facility], [address] | | LAB | | | | [address], | | | | | | [place] [address] | | | | + + + + + + | Anion Gap | 12Comment: Testing | 5 - 20 mmol/L | EXTERNAL | | | | performed at [facility], [address] | | LAB | | | | [address], | | | | | | [place] [address] | | | | + + + + + + | Glucose, | 110 (H)Comment: Testing | 65 - 99 mg/dL | EXTERNAL | | | Fasting | performed at [facility], [address] | | LAB | | | | [address], | | | | | | [place] [address] | | | | + + + + + + | BUN | 50 (H)Comment: Testing | 8 - 25 mg/dL | EXTERNAL | | | | performed at [facility], [address] | | LAB | | | | [address], | | | | | | [place] [address] | | | | + + + + + + | Creatinine | 2.20 (H)Comment: Testing | 0.50 - 1.00 | EXTERNAL | | | | performed at [facility], [address] | mg/dL | LAB | | | | [address], | | | | | | [place] [address] | | | | + + + + + + | BUN/Creatin | 23Comment: Testing | | EXTERNAL | | | ine Ratio | performed at [facility], [address] | | LAB | | | | [address], | | | | | | [place] [address] | | | | + + + + + + | Calcium | 8.3 (L)Comment: Testing | 8.5 - 10.2 | EXTERNAL | | | | performed at [facility], [address] | mg/dL | LAB | | | | [address], | | | | | | [place] [address] | | | | + + + + + + | Protein, | 6.4Comment: Testing | 6.3 - 8.2 g/dL | EXTERNAL | | | Total | performed at [facility], [address] | | LAB | | | | [address], | | | | | | [place] [address] | | | | + + + + + + | Albumin | 3.5Comment: Testing | 3.3 - 4.8 g/dL | EXTERNAL | | | | performed at [facility], [address] | | LAB | | | | [address], | | | | | | [place] [address] | | | | + + + + + + | Globulin | 2.9Comment: Testing | 1.3 - 4.9 g/dL | EXTERNAL | | | | performed at [facility], [address] | | LAB | | | | [address], | | | | | | [place] [address] | | | | + + + + + + | A/G Ratio | 1.2Comment: Testing | 1.0 - 2.4 | EXTERNAL | | | | performed at [facility], [address] | | LAB | | | | [address], | | | | | | [place] [address] | | | | + + + + + + | Bilirubin | 0.4Comment: Testing | 0.1 - 1.5 mg/dL | EXTERNAL | | | Total | performed at [facility], [address] | | LAB | | | | [address], | | | | | | [place] [address] | | | | + + + + + + | ALP, | 86Comment: Testing | 35 - 115 U/L | EXTERNAL | | | External | performed at [facility], [address] | | LAB | | | | [address], | | | | | | [place] [address] | | | | + + + + + + | AST | 8 (L)Comment: Testing | 10 - 45 U/L | EXTERNAL | | | | performed at [facility], [address] | | LAB | | | | [address], | | | | | | [place] [address] | | | | + + + + + + | ALT | 6 (L)Comment: Testing | 10 - 65 U/L | EXTERNAL | | | | performed at [facility], [address] | | LAB | | | | [address], | | | | | | [place] [address] | | | | + + + [...] | | | | | | [place] [address] | | | | + + + [...] | | | Fingerstick | performed at [facility] [place];[address] | | LAB | | | | [address];[place] | | | | | | [address] | | | | + + + [...] | | | Fingerstick | performed at [facility] [place];[address] | | LAB | | | | [address];[place] | | | | | | [address] | | | | + + + [...] | | | Fingerstick | performed at [facility] [place] | | LAB | | | | [address];[place] | | | | | | [address] | | | | + + + [...] | | | Fingerstick | performed at [facility] [place];[address] | | LAB | | | | [address];[place], [place] | | | | | | [address] | | | | + + + [...] | | | | | performed at [facility], [address] | | | | | | [facility], | | | | | | [place] [address] | | | | + + + [...] EXTERNAL | | | | performed at [facility], [address] | | LAB | | | | [address], | | | | | | [place] [address] | | | | + + + + + + | Non- | 4.02Comment: Testing | 3.70 - 5.10 | EXTERNAL | | | Red Blood | performed at [facility], [address] | M/uL | LAB | | | Cells | [address], | | | | | Counted | [place] [address] | | | | + + + + + + | Hemoglobin | 10.1 (L)Comment: Testing | 11.3 - 15.5 | EXTERNAL | | | | performed at [facility], [address] | g/dL | LAB | | | | [address], | | | | | | [place] [address] | | | | + + + + + + | Hematocrit, | 30.8 (L)Comment: Testing | 34.0 - 46.0 % | EXTERNAL | | | POC | performed at [facility], [address] | | LAB | | | | [address], | | | | | | [place] [address] | | | | + + + + + + | MCV | 76.7 (L)Comment: Testing | 80.0 - 100.0 fl | EXTERNAL | | | | performed at [facility], [address] | | LAB | | | | [address], | | | | | | [place] [address] | | | | + + + + + + | MCH | 25.2 (L)Comment: Testing | 27.0 - 34.0 pg | EXTERNAL | | | | performed at [facility], [address] | | LAB | | | | [address], | | | | | | [place] [address] | | | | + + + + + + | MCHC | 32.9Comment: Testing | 32.0 - 35.5 | EXTERNAL | | | | performed at [facility], [address] | g/dL | LAB | | | | [address], | | | | | | [place] [address] | | | | + + + + + + | RDW-CV | 44.2Comment: Testing | 37 - 53 fl | EXTERNAL | | | | performed at [facility], [address] | | LAB | | | | [address], | | | | | | [place] [address] | | | | + + + + + + | Platelet | 218Comment: Testing | 150 - 400 K/uL | EXTERNAL | | | Count | performed at [facility], [address] | | LAB | | | Plasma | [address], | | | | | | [place] [address] | | | | + + + + + + | MPV | 9.0Comment: Testing | fl | EXTERNAL | | | | performed at [facility], [address] | | LAB | | | | [address], | | | | | | [place] [address] | | | | + + + + + + | Differentia | AUTOMATEDComment: | | EXTERNAL | | | l Type | Testing performed at | | LAB | | | | [facility], [address] | | | | | | [place] | | | | | | [address] | | | | + + + + + + | % Segmented | 72.6Comment: Testing | % | EXTERNAL | | | | performed at [facility], [address] | | LAB | | | Neutrophils | [address], | | | | | | [place] [address] | | | | + + + + + + | % | 17.2Comment: Testing | % | EXTERNAL | | | Lymphocytes | performed at [facility], [address] | | LAB | | | | [address], | | | | | | [place] [address] | | | | + + + + + + | % Monocytes | 7.2Comment: Testing | % | EXTERNAL | | | | performed at [facility], [address] | | LAB | | | | [address], | | | | | | [place] [address] | | | | + + + + + + | % | 2.3Comment: Testing | % | EXTERNAL | | | Eosinophils | performed at [facility], [address] | | LAB | | | | [address], | | | | | | [place] [address] | | | | + + + + + + | % Basophils | 0.7Comment: Testing | % | EXTERNAL | | | | performed at [facility], [address] | | LAB | | | | [address], | | | | | | [place] [address] | | | | + + + + + + | Absolute | 8.2 (H)Comment: Testing | 1.9 - 7.4 K/uL | EXTERNAL | | | Segmented | performed at [facility], [address] | | LAB | | | Neutrophils | [address], | | | | | | [place] [address] | | | | + + + + + + | Absolute | 1.9Comment: Testing | 1.0 - 3.9 K/uL | EXTERNAL | | | Lymphocytes | performed at [facility], [address] | | LAB | | | | [address], | | | | | | [place] [address] | | | | + + + + + + | Absolute | 0.8Comment: Testing | 0 - 0.8 K/uL | EXTERNAL | | | Monocytes | performed at [facility], [address] | | LAB | | | | [address], | | | | | | [place] [address] | | | | + + + + + + | Absolute | 0.3Comment: Testing | 0 - 0.5 K/uL | EXTERNAL | | | Eosinophils | performed at [facility], [address] | | LAB | | | | [address], | | | | | | [place] [address] | | | | + + + + + + | Absolute | 0.1Comment: Testing | 0 - 0.1 K/uL | EXTERNAL | | | Basophils | performed at [facility], [address] | | LAB | | | | [address], | | | | | | [place] [address] | | | | + + + + + + | RBC | Comment: 1+ | | EXTERNAL | | | Morphology | Anisocytosis1+ | | LAB | | | | Hypochromia1+ | | | | | | MicrocytosisTesting | | | | | | performed at [facility], [address] | | | | | | [address] [facility], | | | | | | [place] [address] | | | | + + + [...] | | | | | | [place] [address] | | | | + + + + + + | ELP Albumin | 3.3Comment: Testing | 3.3 - 4.8 g/dL | EXTERNAL | | | % | performed at [facility], [address] | | LAB | | | | [place] | | | | | | [place] [address] | | | | + + + + + + | ALPHA 1, BF | 0.2Comment: Testing | 0.1 - 0.4 g/dL | EXTERNAL | | | | performed at [facility], [address] | | LAB | | | | [place] | | | | | | [place] [address] | | | | + + + + + + | ALPHA 2 | 0.7Comment: Testing | 0.5 - 1.1 g/dL | EXTERNAL | | | GLOBULIN | performed at [facility], [address] | | LAB | | | | [place] | | | | | | [place] [address] | | | | + + + + + + | Beta-1 | 0.6Comment: Testing | 0.4 - 0.8 g/dL | EXTERNAL | | | | performed at [facility], [address] | | LAB | | | | [place] | | | | | | [place] [address] | | | | + + + + + + | BETA 2, BF | 0.3Comment: Testing | 0.2 - 0.5 g/dL | EXTERNAL | | | | performed at [facility], [address] | | LAB | | | | [place] | | | | | | [place] [address] | | | | + + + + + + | GAMMA, BF | 0.9Comment: Testing | 0.6 - 1.5 g/dL | EXTERNAL | | | | performed at [facility], [address] | | LAB | | | | [place] [place] | | | | | | [place] [address] | | | | + + + + + + | Albumin | 54.8Comment: Testing | 45.0 - 80.0 % | EXTERNAL | | | | performed at [facility], [address] | | LAB | | | | [place] | | | | | | [place] [address] | | | | + + + + + + | ALPHA 1, BF | 3.8Comment: Testing | 1.0 - 6.0 % | EXTERNAL | | | | performed at [facility], [address] | | LAB | | | | [address] | | | | | | [place] [address] | | | | + + + + + + | Alpha 2 % | 11.3Comment: Testing | 6.0 - 17.0 % | EXTERNAL | | | | performed at [facility], [address] | | LAB | | | | [place] | | | | | | [place] [address] | | | | + + + + + + | Beta-1 % | 9.4Comment: Testing | 5.0 - 13.0 % | EXTERNAL | | | | performed at [facility], [address] | | LAB | | | | [address] | | | | | | [place] [address] | | | | + + + + + + | Beta-2 % | 5.2Comment: Testing | 2.0 - 8.0 % | EXTERNAL | | | | performed at [facility], [address] | | LAB | | | | [place] | | | | | | [place] [address] | | | | + + + + + + | GAMMA, BF | 15.5Comment: Testing | 7.5 - 24.0 % | EXTERNAL | | | | performed at [facility], [address] | | LAB | | | | [place] | | | | | | [place] [address] | | | | + + + [...] [place] | | | | | | [address] | | | | + + + [...] [place] | | | | | | [address] | | | | + + + [...] EXTERNAL | | | | performed at [facility], [address] | | LAB | | | | [address] [place], | | | | | | [place] [address] | | | | + + + [...] EXTERNAL | | | | performed at [facility], [address] | | LAB | | | | [facility], | | | | | | [place] [address] | | | | + + + [...] | | | | | [place] [address] | | | | + + + + + + | K | 4.8Comment: Testing | 3.5 - 4.9 | EXTERNAL | | | | performed at [facility], [address] | mmol/L | LAB | | | | [address], | | | | | | [place] [address] | | | | + + + + + + | Cl | 105Comment: Testing | 99 - 109 mmol/L | EXTERNAL | | | | performed at [facility], [address] | | LAB | | | | [address], | | | | | | [place] [address] | | | | + + + + + + | CO2 | 20 (L)Comment: Testing | 23 - 32 mmol/L | EXTERNAL | | | | performed at [facility], [address] | | LAB | | | | [address], | | | | | | [place] [address] | | | | + + + + + + | Anion Gap | 12Comment: Testing | 5 - 20 mmol/L | EXTERNAL | | | | performed at [facility], [address] | | LAB | | | | [address], | | | | | | [place] [address] | | | | + + + + + + | Glucose, | 120 (H)Comment: Testing | 65 - 99 mg/dL | EXTERNAL | | | Fasting | performed at [facility], [address] | | LAB | | | | [address], | | | | | | [place] [address] | | | | + + + + + + | BUN | 47 (H)Comment: Testing | 8 - 25 mg/dL | EXTERNAL | | | | performed at [facility], [address] | | LAB | | | | [address], | | | | | | [place] [address] | | | | + + + + + + | Creatinine | 2.15 (H)Comment: Testing | 0.50 - 1.00 | EXTERNAL | | | | performed at [facility], [address] | mg/dL | LAB | | | | [address], | | | | | | [place] [address] | | | | + + + + + + | BUN/Creatin | 22Comment: Testing | | EXTERNAL | | | ine Ratio | performed at [facility], [address] | | LAB | | | | [address] [place], | | | | | | [place] [address] | | | | + + + + + + | Calcium | 8.2 (L)Comment: Testing | 8.5 - 10.2 | EXTERNAL | | | | performed at [facility], [address] | mg/dL | LAB | | | | [address] [place], | | | | | | [place] [address] | | | | + + + + + + | Protein, | 6.5Comment: Testing | 6.3 - 8.2 g/dL | EXTERNAL | | | Total | performed at [facility], [address] | | LAB | | | [address], | | | | | | [place] [address] | | | | + + + + + + | Albumin | 3.6Comment: Testing | 3.3 - 4.8 g/dL | EXTERNAL | | | | performed at [facility], [address] | | LAB | | | | [address] [place], | | | | | | [place] [address] | | | | + + + + + + | Globulin | 2.9Comment: Testing | 1.3 - 4.9 g/dL | EXTERNAL | | | | performed at [facility], [address] | | LAB | | | | [address], | | | | | | [place] [address] | | | | + + + + + + | A/G Ratio | 1.2Comment: Testing | 1.0 - 2.4 | EXTERNAL | | | | performed at [facility], [address] | | LAB | | | [address], | | | | | | [place] [address] | | | | + + + + + + | Bilirubin | 0.6Comment: Testing | 0.1 - 1.5 mg/dL | EXTERNAL | | | Total | performed at [facility], [address] | | LAB | | | | [address], | | | | | | [place] [address] | | | | + + + + + + | ALP, | 92Comment: Testing | 35 - 115 U/L | EXTERNAL | | | External | performed at [facility], [address] | | LAB | | | | [address], | | | | | | [place] [address] | | | | + + + + + + | AST | 11Comment: Testing | 10 - 45 U/L | EXTERNAL | | | | performed at [facility], [address] | | LAB | | | | [address], | | | | | | [place] [address] | | | | + + + + + + | ALT | 10Comment: Testing | 10 - 65 U/L | EXTERNAL | | | | performed at [facility], [address] | | LAB | | | | [address], | | | | | | [place] [address] | | | | + + + [...] | | | | | | at [facility], [address] | | | | | | [place] [place], | | | | | | [place] [address] | | | | + + + [...] | | | Fingerstick | performed at [facility];[address] | | LAB | | | | [place] | | | | | | [address] | | | | + + + [...] LAB | | | | performed at [facility], [address] | | | | | | [place], | | | | | | [place] [address] | | | | + + + [...] | | | Fingerstick | performed at [facility];[address] | | LAB | | | | [address] [facility];[place], [place] | | | | | | [address] | | | | + + + + + + + + | Specimen | + + | | + + + +---------+ + + | Performing | Address | City/State/Zipcode | Phone Number | | Organization | | | | + +---------+ + + | EXTERNAL LAB | | | | + +---------+ + + [place] (05/02/2014 3:36 PM PDT) + + + + + + | Component | Value | Ref Range | Performed | Pathologist | | | | | At | Signature | + + + + + + | Ig [place] | 4.80 (H)Comment: Testing | 0.33 - 1.94 | EXTERNAL | | | Free Light | performed at [facility], [address] | mg/dL | LAB | | | Chain | [address] | | | | | | [place] [address] | | | | + + + + + + | kaplamflc | 4.76 (H)Comment: Testing | 0.57 - 2.63 | EXTERNAL | | | | performed at [facility], [address] | mg/dL | LAB | | | | [address] | | | | | | [place] [address] | | | | + + + + + + | [place] | 1.01Comment: NOTE: NEW | 0.26 - 1.65 | EXTERNAL | | | a Free | METHOD OF MAY | | LAB | | | Light Chain | . RESULTS | | | | | Ratio | OBTAINED BY USING | | | | | | THEBINDING SITE REAGENTS | | | | | | ON A ComponentLab II | | | | | | ANALYZER. RESULTS MAY | | | | | | VARYFROM PREVIOUS | | | | | | METHOD.Testing performed | | | | | | at [facility], [address] | | | | | | [place] | | | | | | [address] | | | | + + + [...] [place] | | | | | | [address] | | | | + + + + + + | HEP A IGM | NON REACTIVEComment: | | EXTERNAL | | | | Testing performed at | | LAB | | | | [facility], [address] | | | | | | [place] | | | | | | [address] | | | | + + + + + + | Hepatitis B | NON REACTIVEComment: | | EXTERNAL | | | Surface Ag | Testing performed at | | LAB | | | | [facility], [address] | | | | | | [place] | | | | | | [address] | | | | + + + + + + | Hepatitis B | NON REACTIVEComment: | | EXTERNAL | | | Core Ab | Testing performed at | | LAB | | | Total | [facility], [address] [facility] | | | | | | [place] | | | | | | [address] | | | | + + + + + + | HCV Ab | NON REACTIVEComment: | | EXTERNAL | | | | Testing performed at | | LAB | | | | [facility], [address] [facility] | | | | | | [place] | | | | | | [address] | | | | + + + [...] | | | | | performed at [facility], [address] | | | | | | [facility] [address], | | | | | | [place] [address] | | | | + + + [...] | | | | | | [place] [address] | | | | + + + + + + | Complement | 20.9Comment: Testing | 10 - 40 mg/dL | EXTERNAL | | | Comp 4 | performed at [facility], [address] | | LAB | | | [address], | | | | | | [place] [address] | | | | + + + [...] | | | | | [place] [address] | | | | + + + + + + | TIBC | 407Comment: Testing | 260 - 490 ug/dL | EXTERNAL | | | | performed at [facility], [address] | | LAB | | | | [address] [place], | | | | | | [place] [address] | | | | + + + + + + | Iron | 16Comment: Testing | 15 - 50 % | EXTERNAL | | | Saturation | performed at [facility], [address] | | LAB | | | | [place], | | | | | | [place] [address] | | | | + + + [...] | | | | | performed at [facility], [address] | | | | | | [place] | | | | | | [place] [address] | | | | + + + [...] | | | | | performed at [facility], [address] | | | | | | [facility] | | | | | | [place] [address] | | | | + + + [...] | | | | | - 20 [id number] - 30 | | | | | [...] THE | | | | | | Street [employer] | | | | | [...] | | | | | | at [facility], [address] | | | | | | [place] | | | | | | [address] | | | | + + + [...] | | | | | performed at [facility], [address] | | | | | | [facility], | | | | | | [place] [address] | | | | + + + [...] | | | | | | P,CHROMATIN, B2B APPOINTMENT SETTER, SM | | | | | | B2B APPOINTMENT SETTER, SCL-70, CENTROMERE | | | | | | B, SSA, SSB AND ROBERT-1) | | | | | | WASPERFORMED AND NO | | | | | | AUTOANTIBODIES WERE | | | | | | DETECTED.Testing | | | | | | performed at [facility], [address] | | | | | | [place] | | | | | | [place] [address] | | | | + + + + + + | ANCA Screen | <1:20Comment: REFERENCE | | EXTERNAL | | | | RANGE: <1:20Testing | | LAB | | | | performed at [facility], [address] | | | | | | [place] | | | | | | [place] [address] | | | | + + + [...] | | | | sting performed at [facility], | | | | | | [address] [place], | | | | | | [place] [address] | | | | + + + [...] | | | | | | at [facility], [address] | | | | | | [place] | | | | | | [address] | | | | + + + [...] EXTERNAL | | | | performed at [facility], [address] | | LAB | | | | [place], | | | | | | [place] [address] | | | | + + + [...] | | | External | performed at [facility], [address] | | LAB | | | | [address], | | | | | | [place] [address] | | | | + + + [...] | | | Fingerstick | performed at [facility];[address] | | LAB | | | | [address];[place], [place] | | | | | | [address] | | | | + + + [...] EXTERNAL | | | | performed at [facility];[address] | | LAB | | | | [address];[place], [place] | | | | | | [address] | | | | + + + [...] | | | | | | ACUTE HI CALLED TO | | | | | | MARYLOU Arzola ON 4RP AT | | | | | | 0900 BY TRREAD BACK | | | | | | RESULTS VERIFIEDTesting | | | | | | performed at [facility];[address] | | | | | | [address];[place], [place] | | | | | | [address] | | | | + + + [...] EXTERNAL | | | | performed at [facility];[address] | | LAB | | | | [address];[place], [place] | | | | | | [address] | | | | + + + [...] | | | Patient | performed at [facility];[address] | | LAB | | | | [place] | | | | | | [address] | | | | + + + [...] | | | Fingerstick | performed at [facility] | | LAB | | | | [address];[place], [place] | | | | | | [address] | | | | + + + [...] | | | | | [place] [address] | | | | + + + + + + | TIBC | 394Comment: Testing | 260 - 490 ug/dL | EXTERNAL | | | | performed at [facility], [address] | | LAB | | | [address], | | | | | | [place] [address] | | | | + + + + + + | Iron | 5 (L)Comment: Testing | 15 - 50 % | EXTERNAL | | | Saturation | performed at [facility], [address] | | LAB | | | | [address], | | | | | | [place] [address] | | | | + + + [...] | | | Patient | performed at [facility];[address] | | LAB | | | | [address];[place], [place] | | | | | | [address] | | | | + + + [...] | | | | | [place] [address] | | | | + + +---- + + + | Non- | 3.16 (L)Comment: Testing | 3.7 0 - 5.10 | EXTERNAL | | | Red Blood | performed at [facility], [address] | M/u L | LAB | | | Cells | [address], | | | | | Counted | [place] [address] | | | | + + +---- + + + | Hemoglobin | 7.5 (L)Comment: Testing | 11. 3 - 15.5 | EXTERNAL | | | | performed at [facility], [address] | g/d L | LAB | | | | [address], | | | | | | [place] [address] | | | | + + +---- + + + | Hematocrit, | 23.8 (L)Comment: Testing | 34. 0 - 46.0 % | EXTERNAL | | | POC | performed at [facility], [address] | | LAB | | | | [address] [place], | | | | | | [place] [address] | | | | + + +---- + + + | MCV | 75.2 (L)Comment: Testing | 80. 0 - 100.0 fl | EXTERNAL | | | | performed at [facility], [address] | | LAB | | | | [address] [place], | | | | | | [place] [address] | | | | + + +---- + + + | MCH | 23.8 (L)Comment: Testing | 27. 0 - 34.0 pg | EXTERNAL | | | | performed at [facility], [address] | | LAB | | | | [address], | | | | | | [place] [address] | | | | + + +---- + + + | MCHC | 31.7 (L)Comment: Testing | 32. 0 - 35.5 | EXTERNAL | | | | performed at [facility], [address] | g/d L | LAB | | | | [address], | | | | | | [place] [address] | | | | + + +---- + + + | RDW-CV | 40.7Comment: Testing | 37 - 53 fl | EXTERNAL | | | | performed at [facility], [address] | | LAB | | | | [place], | | | | | | [place] [address] | | | | + + +---- + + + | Platelet | 238Comment: Testing | 150 - 400 K/uL | EXTERNAL | | | Count | performed at [facility], [address] | | LAB | | | Plasma | [place], | | | | | | [place] [address] | | | | + + +---- + + + | MPV | 9.1Comment: Testing | fl | EXTERNAL | | | | performed at [facility], [address] | | LAB | | | | [place], | | | | | | [place] [address] | | | | + + +---- + + + | Differentia | AUTOMATEDComment: | | EXTERNAL | | | l Type | Testing performed at | | LAB | | | | [facility], [address] | | | | | | [place] | | | | | | [address] | | | | + + +---- + + + | % Segmented | 70.0Comment: Testing | % | EXTERNAL | | | | performed at [facility], [address] | | LAB | | | Neutrophils | [address] [place], | | | | | | [place] [address] | | | | + + +---- + + + | % | 19.1Comment: Testing | % | EXTERNAL | | | Lymphocytes | performed at [facility], [address] | | LAB | | | | [place], | | | | | | [place] [address] | | | | + + +---- + + + | % Monocytes | 7.0Comment: Testing | % | EXTERNAL | | | | performed at [facility], [address] | | LAB | | | | [place], | | | | | | [place] [address] | | | | + + +---- + + + | % | 3.6Comment: Testing | % | EXTERNAL | | | Eosinophils | performed at [facility], [address] | | LAB | | | [address], | | | | | | [place] [address] | | | | + + +---- + + + | % Basophils | 0.3Comment: Testing | % | EXTERNAL | | | | performed at [facility], [address] | | LAB | | | | [address], | | | | | | [place] [address] | | | | + + +---- + + + | Absolute | 7.1Comment: Testing | 1.9 - 7.4 K/uL | EXTERNAL | | | Segmented | performed at [facility], [address] | | LAB | | | Neutrophils | [address], | | | | | | [place] [address] | | | | + + +---- + + + | Absolute | 1.9Comment: Testing | 1.0 - 3.9 K/uL | EXTERNAL | | | Lymphocytes | performed at [facility], [address] | | LAB | | | | [place], | | | | | | [place] [address] | | | | + + +---- + + + | Absolute | 0.7Comment: Testing | 0 - 0.8 K/uL | EXTERNAL | | | Monocytes | performed at [facility], [address] | | LAB | | | | [place], | | | | | | [place] [address] | | | | + + +---- + + + | Absolute | 0.4Comment: Testing | 0 - 0.5 K/uL | EXTERNAL | | | Eosinophils | performed at [facility], [address] | | LAB | | | | [address], | | | | | | [place] [address] | | | | + + +---- + + + | Absolute | 0.0Comment: Testing | 0 - 0.1 K/uL | EXTERNAL | | | Basophils | performed at [facility], [address] | | LAB | | | | [address], | | | | | | [place] [address] | | | | + + +---- + + + | RBC | NORMAL PLT MORPHComment: | | EXTERNAL | | | Morphology | | | LAB | | | | 2+MICRO2+HYPO1+POIKTesti | | | | | | ng performed at [facility], | | | | | | [address], | | | | | | [place] [address] | | | | | |1+ | | | | | |POIK | | | | | |Testing performed at [facility], [address] [place] [address] | | | | | | | [...] EXTERNAL | | | | performed at [facility], [address] | | LAB | | | | [place], | | | | | | [place] [address] | | | | + + + [...] | | | | | [place] [address] | | | | + + + [...] | EXTERNAL | | | A1c | [place] Diabetes | | LAB | | | [...] | | | | | performed at [facility], [address] | | | | | | [address] [facility], | | | | | | [place] [address] | | | | + + + [...] | | | | | performed at [facility], [address] | | | | | | [facility], | | | | | | [place] [address] | | | | + + + [...] [place] | | | | | | [place] [address] | | | | + + + [...] | | | B-12 | performed at [facility], [address] | pg/mL | LAB | | | | [address] [place], | | | | | | [place] [address] | | | | + + + [...] | | | | | [place] [address] | | | | + + + + + + | K | 5.0 (H)Comment: Testing | 3.5 - 4.9 | EXTERNAL | | | | performed at [facility], [address] | mmol/L | LAB | | | | [address], | | | | | | [place] [address] | | | | + + + + + + | Cl | 108Comment: Testing | 99 - 109 mmol/L | EXTERNAL | | | | performed at [facility], [address] | | LAB | | | | [address], | | | | | | [place] [address] | | | | + + + + + + | CO2 | 20 (L)Comment: Testing | 23 - 32 mmol/L | EXTERNAL | | | | performed at [facility], [address] | | LAB | | | | [address], | | | | | | [place] [address] | | | | + + + + + + | Anion Gap | 11Comment: Testing | 5 - 20 mmol/L | EXTERNAL | | | | performed at [facility], [address] | | LAB | | | [address], | | | | | | [place] [address] | | | | + + + + + + | Glucose, | 130 (H)Comment: Testing | 65 - 99 mg/dL | EXTERNAL | | | Fasting | performed at [facility], [address] | | LAB | | | | [address], | | | | | | [place] [address] | | | | + + + + + + | BUN | 43 (H)Comment: Testing | 8 - 25 mg/dL | EXTERNAL | | | | performed at [facility], [address] | | LAB | | | | [address], | | | | | | [place] [address] | | | | + + + + + + | Creatinine | 2.30 (H)Comment: Testing | 0.50 - 1.00 | EXTERNAL | | | | performed at [facility], [address] | mg/dL | LAB | | | | [address], | | | | | | [place] [address] | | | | + + + + + + | BUN/Creatin | 19Comment: Testing | | EXTERNAL | | | ine Ratio | performed at [facility], [address] | | LAB | | | | [address], | | | | | | [place] [address] | | | | + + + + + + | Calcium | 8.0 (L)Comment: Testing | 8.5 - 10.2 | EXTERNAL | | | | performed at [facility], [address] | mg/dL | LAB | | | | [address], | | | | | | [place] [address] | | | | + + + [...] | | | | | [place] [address] | | | | + + + [...] | | | Fingerstick | performed at [facility];[address] | | LAB | | | | [address];[place] | | | | | | [address] | | | | + + + [...] | | | Fingerstick | performed at [facility];[address] | | LAB | | | | [address];[place], [place] | | | | | | [address] | | | | + + + [...] EXTERNAL | | | | performed at [facility];[address] | | LAB | | | | [address];[place], [place] | | | | | | [address] | | | | + + + [...] | | | | | | ACUTE HI CALLED NURSING | | | | | | [id number] P AT 1545 | | | | | | BNW READ BACK RESULTS | | | | | | VERIFIEDTesting | | | | | | performed at [facility];[address] | [address] | | | [address];[place], [place] | | | | | | [address] | | | | + + + [...] EXTERNAL | | | | performed at [facility];[address] | | LAB | | | | [address];[place] | | | | | | [address] | | | | + + + [...] atrium is mildly dilated. 6. There is jicf-qu-mnfxfeku aortic | | | regurgitation. 7. Aggd-pd-trpycaop mitral regurgitation is present. | | | [...] | is mildly dilated. 6. There is lbha-lg-jrrzpfbm aortic regurgitation. | | | 7. Fmab-dv-ujiqjkzz mitral regurgitation is present. 8. There is [...] | | | Aortic Valve: There is wnbt-ri-wpszrfle aortic regurgitation. Aortic | | | Valve: There is no evidence of significant aortic stenosis. Mitral | | | Valve: The mitral valve is normal. Mitral Valve: Pwxt-uo-hegsslpo | | | mitral regurgitation is present. Mitral Valve: Moderate mitral | | | annular calcification present. Mitral Valve: Mild thickening of the | | | anterior mitral valve leaflet. Mitral Valve: There is mild thickening | | | of the posterior mitral valve leaflet. Tricuspid Valve: The | | | tricuspid valve appears structurally normal. Tricuspid Valve: | | | Piae-xa-ehbuougv tricuspid regurgitation present. Tricuspid Valve: | | [...] 113.97 ml D-E Excursion: 1.44 cm E-F Hardeman: 0.05 | | | m/s EPSS: 1.21 cm AR Dec Hardeman: 1.60 m/s2 AR Dec Time: | | [...] | | | 0.93 m/s TV Dec Hardeman: 4.08 m/s2 TV Dec Time: 135.12 ms TV | | | E Mc: 0.55 m/s TV E/A Ratio: 0.58 Candy Attendant: LOLY | | | Authenticated by: Christiano [...] is mildly dilated.6. There | | is kbis-gu-aqaqssgd aortic regurgitation.7. Kbgi-uw-biwnsuor mitral regurgitation is | | present.8. There [...] valve is mildly calcified.Aortic Valve: There is cura-xa-chsrrxuk aortic | | regurgitation.Aortic Valve: There is no evidence of significant aortic stenosis.Mitral | | Valve: The mitral valve is normal.Mitral Valve: Ikdw-tw-kcoyjxij mitral regurgitation is | | present.Mitral Valve: Moderate mitral annular calcification present.Mitral Valve: Mild | | thickening of the anterior mitral valve leaflet.Mitral Valve: There is mild thickening | | of the posterior mitral valve leaflet.Tricuspid Valve: The tricuspid valve appears | | structurally normal.Tricuspid Valve: Dupd-dw-xpfafzrg tricuspid regurgitation | | present.Tricuspid Valve: There [...] (A-L): 48.42 ml/m2LAAd A2C: | | 18.54 [id number] A-L A2C: 58.33 mlLAEDV MOD A2C: 55.18 mlLALd A2C: 5.00 cmLAAd A4C: | | 22.63 [id number] A-L A4C: 72.64 mlLAEDV MOD A4C: 66.83 [...] 113.97 mlD-E Excursion: 1.44 cmE-F | | Hardeman: 0.05 m/sEPSS: 1.21 cmAR Dec Hardeman: 1.60 m/s2AR Dec Time: 1757.97 msAR | [...] Vmax: | | 1.90 cm2AVA (VTI): 1.87 af4OHFZ Dopp: 2.90 l/ncqv1DEDH Dopp: 4.27 l/minHR: 97.96 | | BPMLVOT [...] 3.44 m/sTV A Mc: 0.93 m/sTV Dec Hardeman: 4.08 | | m/s2TV Dec Time: 135.12 msTV E Mc: 0.55 m/sTV E/A Ratio: 0.58 Candy Attendant: | | MIKAuthenticated by: Christiano Guzman [facility] Date/Time: 05-01-2014 16:13:14 IMPRESSION: 1. | | Overall left ventricular systolic function is moderately impaired with, an EF between | | 30 - 40 %.2. The left ventricle is markedly dilated.3. mid anteroseptal - akinetic;4. | | apex - akinetic;5. The left atrium is mildly dilated.6. There is klfr-vt-bqyqqsfj aortic | | regurgitation.7. Gnjn-qy-eufzbgkz mitral regurgitation is present.8. There is moderate [...] | |D-E Excursion: 1.44 cm | |E-F Hardeman: 0.05 m/s | |EPSS: 1.21 cm | |AR Dec Hardeman: 1.60 m/s2 | |AR Dec Time: 1757.97 [...] |MR Vmax: 3.94 m/s | |MV A Mc: 1.23 m/s | |MV DecT: 147.26 ms [...] A Mc: 0.93 m/s | |TV Dec Hardeman: 4.08 m/s2 | |TV Dec Time: 135.12 ms | |TV E Mc: 0.55 m/s | |TV E/A Ratio: 0.58 | | | |Candy Attendant: LOLY | |Authenticated by: Christiano Guzman MD [...] is mildly dilated. | |6. There is yqlh-cx-tfqbkmtp aortic regurgitation. | |7. Ufjb-wo-rghkghny mitral regurgitation is present. | |8. There [...] Rad Conversion - 06/16/2019 4:04 PM DEEDEE HAWKINS[id number] years | | FemaleXR CHEST 2 VIEW [...] EXTERNAL | | | | performed at [facility];[address] | | LAB | | | | [address];[place] | | | | | | [address] | | | | + + + + + + | Non- | 3.48 (L)Comment: Testing | 3.70 - 5.10 | EXTERNAL | | | Red Blood | performed at [facility];888 | M/uL | LAB | | | Cells | [address];[place] | | | | | Counted | [id number] | | | | + + + + + + | Hemoglobin | 8.6 (L)Comment: Testing | 11.3 - 15.5 | EXTERNAL | | | | performed at [facility];888 | g/dL | LAB | | | | [address];[place] | | | | | | [address] | | | | + + + + + + | Hematocrit, | 25.8 (L)Comment: Testing | 34.0 - 46.0 % | EXTERNAL | | | POC | performed at [facility];888 | | LAB | | | | [address];[place] | | | | | | [address] | | | | + + + + + + | MCV | 74.1 (L)Comment: Testing | 80.0 - 100.0 fl | EXTERNAL | | | | performed at [facility];[address] | | LAB | | | | [address];[place] | | | | | | [address] | | | | + + + + + + | MCH | 24.6 (L)Comment: Testing | 27.0 - 34.0 pg | EXTERNAL | | | | performed at [facility];[address] | | LAB | | | | [address];[place] | | | | | | [address] | | | | + + + + + + | MCHC | 33.2Comment: Testing | 32.0 - 35.5 | EXTERNAL | | | | performed at [facility];888 | g/dL | LAB | | | | [address];[place] | | | | | | [address] | | | | + + + + + + | RDW-CV | 42.4Comment: Testing | 37 - 53 fl | EXTERNAL | | | | performed at [facility];[address] | | LAB | | | | [address];[place] | | | | | | [address] | | | | + + + + + + | Platelet | 299Comment: Testing | 150 - 400 K/uL | EXTERNAL | | | Count | performed at [facility];888 | | LAB | | | Plasma | [address];[place] | | | | | | [address] | | | | + + + + + + | MPV | 8.5Comment: Testing | fl | EXTERNAL | | | | performed at [facility];[address] | | LAB | | | | [address];[place] | | | | | | [address] | | | | + + + + + + | Platelet | ADEQUATEComment: Testing | | EXTERNAL | | | Estimate | performed at [facility];[address] | | LAB | | | | [address];[place] | | | | | | [address] | | | | + + + + + + | Differentia | SLIDE SCANNED, AGREES | | EXTERNAL | | | l Comments | WITH AUTOMATED | | LAB | | | | RESULTS.Comment: Testing | | | | | | performed at [facility];[address] | | | | | | [address];[place] | | | | | | [address] | | | | + + + + + + | RBC | 1+Comment: | | EXTERNAL | | | Morphology | ANISO1+MICRO2+HYPONORMAL | | LAB | | | | PLT MORPHTesting | | | | | | performed at [facility];[address] | | | | | | [address];[place] | | | | | | [address] | | | | | |HYPO | | | | | |NORMAL PLT MORPH | | | | | |Testing performed at [facility];[address];[place] [address] | | | | | | | | | | + + + + + + | Differentia | AUTOMATEDComment: | | EXTERNAL | | | l Type | Testing performed at | | LAB | | | | [facility];[address] [facility] | | | | | | Blvd;[place] [address] | | | | + + + + + + | % Segmented | 87.7Comment: Testing | % | EXTERNAL | | | | performed at [facility];888 | | LAB | | | Neutrophils | [address];[place] | | | | | | [address] | | | | + + + + + + | % | 8.6Comment: Testing | % | EXTERNAL | | | Lymphocytes | performed at [facility];888 | | LAB | | | | [address];[place] | | | | | | [address] | | | | + + + + + + | % Monocytes | 3.5Comment: Testing | % | EXTERNAL | | | | performed at [facility];888 | | LAB | | | | [address];[place] | | | | | | [address] | | | | + + + + + + | % | 0.1Comment: Testing | % | EXTERNAL | | | Eosinophils | performed at [facility];[address] | | LAB | | | | [address];[place] | | | | | | [address] | | | | + + + + + + | % Basophils | 0.1Comment: Testing | % | EXTERNAL | | | | performed at [facility];[address] | | LAB | | | | [address];[place] | | | | | | [address] | | | | + + + + + + | Absolute | 9.2 (H)Comment: Testing | 1.9 - 7.4 K/uL | EXTERNAL | | | Segmented | performed at [facility];[address] | | LAB | | | Neutrophils | [address];[place] | | | | | | [address] | | | | + + + + + + | Absolute | 0.9 (L)Comment: Testing | 1.0 - 3.9 K/uL | EXTERNAL | | | Lymphocytes | performed at [facility];[address] | | LAB | | | | [address];[place] | | | | | | [address] | | | | + + + + + + | Absolute | 0.4Comment: Testing | 0 - 0.8 K/uL | EXTERNAL | | | Monocytes | performed at [facility];[address] | | LAB | | | | [address];[place] | | | | | | [address] | | | | + + + + + + | Absolute | 0.0Comment: Testing | 0 - 0.5 K/uL | EXTERNAL | | | Eosinophils | performed at [facility];[address] | | LAB | | | | [address];[place] | | | | | | [address] | | | | + + + + + + | Absolute | 0.0Comment: Testing | 0 - 0.1 K/uL | EXTERNAL | | | Basophils | performed at [facility];[address] | | LAB | | | | [address];[place] | | | | | | [address] | | | | + + + + + + | Na | 140Comment: Testing | 135 - 143 | EXTERNAL | | | | performed at [facility];888 | mmol/L | LAB | | | | [address];[place] | | | | | | [address] | | | | + + + + + + | K | 4.5Comment: Testing | 3.5 - 4.9 | EXTERNAL | | | | performed at [facility];888 | mmol/L | LAB | | | | [address];[place] | | | | | | [address] | | | | + + + + + + | Cl | 111 (H)Comment: Testing | 99 - 109 mmol/L | EXTERNAL | | | | performed at [facility];888 | | LAB | | | | [address];[place] | | | | | | [address] | | | | + + + + + + | CO2 | 18 (L)Comment: Testing | 23 - 32 mmol/L | EXTERNAL | | | | performed at [facility];888 | | LAB | | | | [address];[place] | | | | | | [address] | | | | + + + + + + | Anion Gap | 15Comment: Testing | 5 - 20 mmol/L | EXTERNAL | | | | performed at [facility];888 | | LAB | | | | [address];[place] | | | | | | [address] | | | | + + + + + + | Glucose, | 222 (H)Comment: Testing | 65 - 99 mg/dL | EXTERNAL | | | Fasting | performed at [facility];[address] | | LAB | | | | [address];[place] | | | | | | [address] | | | | + + + + + + | BUN | 37 (H)Comment: Testing | 8 - 25 mg/dL | EXTERNAL | | | | performed at [facility];[address] | | LAB | | | | [address];[place] | | | | | | [address] | | | | + + + + + + | Creatinine | 2.05 (H)Comment: Testing | 0.50 - 1.00 | EXTERNAL | | | | performed at [facility];888 | mg/dL | LAB | | | | [address];[place] | | | | | | [address] | | | | + + + + + + | BUN/Creatin | 18Comment: Testing | | EXTERNAL | | | ine Ratio | performed at [facility];[address] | | LAB | | | | [address];[place] | | | | | | [address] | | | | + + + + + + | Calcium | 7.7 (L)Comment: Testing | 8.5 - 10.2 | EXTERNAL | | | | performed at [facility];888 | mg/dL | LAB | | | | [address];[place] | | | | | | [address] | | | | + + + + + + | Protein, | 7.1Comment: Testing | 6.3 - 8.2 g/dL | EXTERNAL | | | Total | performed at [facility];[address] | | LAB | | | | [address];[place] | | | | | | [address] | | | | + + + + + + | Albumin | 3.4Comment: Testing | 3.3 - 4.8 g/dL | EXTERNAL | | | | performed at [facility];[address] | | LAB | | | | [address];[place] | | | | | | [address] | | | | + + + + + + | Globulin | 3.6Comment: Testing | 1.3 - 4.9 g/dL | EXTERNAL | | | | performed at [facility];888 | | LAB | | | | [address];[place] | | | | | | [address] | | | | + + + + + + | A/G Ratio | 0.9 (L)Comment: Testing | 1.0 - 2.4 | EXTERNAL | | | | performed at [facility];[address] | | LAB | | | | [address];[place] | | | | | | [address] | | | | + + + + + + | Bilirubin | 0.3Comment: Testing | 0.1 - 1.5 mg/dL | EXTERNAL | | | Total | performed at [facility];[address] | | LAB | | | | [address];[place] | | | | | | [address] | | | | + + + + + + | ALP, | 126 (H)Comment: Testing | 35 - 115 U/L | EXTERNAL | | | External | performed at [facility];[address] | | LAB | | | | [address];[place] | | | | | | [address] | | | | + + + + + + | AST | 10Comment: Testing | 10 - 45 U/L | EXTERNAL | | | | performed at [facility];888 | | LAB | | | | [address];[place] | | | | | | [address] | | | | + + + + + + | ALT | 14Comment: Testing | 10 - 65 U/L | EXTERNAL | | | | performed at [facility];888 | | LAB | | | | [address];[place] | | | | | | [address] | | | | + + + [...] | | | | | | at [facility];[address] | | | | | | [address];[place] [address] | | | | + + + + + + | CK, Total | 96Comment: Testing | 30 - 240 U/L | EXTERNAL | | | | performed at [facility];888 | | LAB | | | | [address];[place] | | | | | | [address] | | | | + + + [...] | | | | | performed at [facility];[address] | | | | | | [address];[place] | | | | | | [address] | | | | + + + + + + | aPTT, | 24Comment: Testing | 23 - 32 seconds | EXTERNAL | | | Patient | performed at [facility];888 | | LAB | | | | [address];[place] | | | | | | [address] | | | | + + + + + + | CK-MB | 5.0 (H)Comment: Testing | 0.5 - 3.6 ng/mL | EXTERNAL | | | | performed at [facility];888 | | LAB | | | | [address];[place] | | | | | | [address] | | | | + + + [...] (500), | | | | | | features editor HUI QUINONEZ | | | | [...] | Acute systolic CHF (congestive heart failure) ([facility]) | + + | LEANNA (acute kidney injury) ([facility]) Acute kidney failure, unspecified | + + | Anemia, iron deficiency Iron deficiency anemia, unspecified | + + | DM2 (diabetes mellitus, type 2) ([facility]) Type II or unspecified type diabetes mellitus | | without mention of complication, not stated as uncontrolled | + + | Hyperkalemia Hyperpotassemia | + + documented in this encounter
--- OUTSIDE RECORDS SUMMARY | ~2020-05-14 | XMS | Encounter Summary ---
Demographics + + + | Address | [address] | | | [place] [address] | + + + | Home Phone | | + + + | Preferred Language | Unknown | + + + | Marital Status | | + + + | Mu-Ism Affiliation | Unknown | + + + | Race | Unknown | + + + | Ethnic Group | Unknown | + + + Author + + + | Author | [facility] | | | and [place] | + + + | Organization | [facility] | | [...] Team Providers + +------+ + | Care Tire Assembler Name | Role | Phone | + +------+ + | Anthony Atkins DO | PCP | | + +------+ + Encounter Details +--------+ + + + + | Date | Type | Department | Care Team | Description | +--------+ + + + + | 10/21/ | Orders Only | [facility] | Conversion | | | 2013 | | NEPRHOLOGY [place] | Transaction, | | | | | [address] | Provider Unknown | | | | | [address] [place], [place] | | | | | | [address] | (Fax) | | | | | [phone] | | | +--------+ + + + [...]
--- OUTSIDE RECORDS SUMMARY | ~2020-05-14 | XMS | Encounter Summary ---
Demographics + + + | Address | [address] | | | [place] [address] | + + + | Home Phone | | + + + | Preferred Language | Unknown | + + + | Marital Status | | + + + | Jainism Affiliation | Unknown | + + + | Race | Unknown | + + + | Ethnic Group | Unknown | + + + Author + + + | Author | [facility] | | | and [place] | + + + | Organization | [facility] | | | and [...] Team Providers + +------+ + | Care Marking Stitcher Name | Role | Phone | + +------+ + | Anthony Atkins DO | PCP | | + +------+ + Encounter Details +--------+ + + + + | Date | Type | Department | Care Team | Description | +--------+ + + + + | 06/19/ | Orders Only | [facility] | Alex Carbajal MD | CKD (chronic kidney | | 2019 | | NEPHROLOGY [place] | [address] | disease) stage 4, | | | | [address] | [address] [facility], [place] | GFR 15-29 ml/min | | | | [address] [facility], [place] | [address] | ([facility]) (Primary Dx); | | | | [address] | | Proteinuria, | | | | [phone] | | unspecified type | +--------+ + [...] 06/19/2020 | | | | | ml/min ([facility]) | | | | | | [...] 06/19/2020 | | | | | ml/min ([facility]) | | | | | | Proteinuria, | | | | | | unspecified type | | + +------+--------+ + + | Urinalysis With | Lab | Routin | CKD (chronic | Expected: | | Microscopic | | e | kidney disease) | 07/24/2019, Expires: | | | | | stage 4, GFR 15-29 | 06/19/2020 | | | | | ml/min ([facility]) | | | | | | Proteinuria, | | | | | | unspecified type | | + +------+--------+ + + documented as of this encounter Visit Diagnoses + + | Diagnosis | + + | CKD (chronic kidney disease) stage 4, GFR 15-29 ml/min ([facility]) - Primary Chronic kidney | | disease, Stage IV (severe) | + + | Proteinuria, unspecified type | + + documented in this encounter"
--- OUTSIDE RECORDS SUMMARY | ~2020-05-14 | XMS | Encounter Summary ---
Demographics + + + | Address | [address] | | | [place] [address] | + + + | Home Phone | | + + + | Preferred Language | Unknown | + + + | Marital Status | | + + + | Zoroastrianism Affiliation | Unknown | + + + | Race | Unknown | + + + | Ethnic Group | Unknown | + + + Author + + + | Author | [facility] | | | and [place] | + + + | Organization | [facility] | | | [...] Team Providers + +------+ + | Care Orchestra Musician Name | Role | Phone | + [...] + + | 06/19/ | Documentati | [facility] | Mcintosh, | Other (Referral | | 2019 | on | NEPHROLOGY [place] | Justin Choi | abstracting) | | | | [address] | Boring Mill Set Up Operator | | | | | [address] [place], [place] | | | | | | [address] | | | | | | [phone] | | | +--------+ + + + [...] 1.005 - 1.030 | | | | [place] | | | | | + [...]
--- OUTSIDE RECORDS SUMMARY | ~2020-05-14 | XMS | Encounter Summary ---
Demographics + + + | Address | [address] | | | [place] [address] | + + + | Home Phone | | + + + | Preferred Language | Unknown | + + + | Marital Status | | + + + | Pentecostalism Affiliation | Unknown | + + + | Race | Unknown | + + + | Ethnic Group | Unknown | + + + Author + + + | Author | [facility] | | | and [place] | + + + | Organization | [facility] | | | [...] Team Providers + +------+ + | Care House Mover Helper Name | Role | Phone | + +------+ + | Anthony Atkins DO | PCP | | + +------+ + Encounter Details +--------+ + + + + | Date | Type | Department | Care Team | Description | +--------+ + + + + | 01/15/ | Orders Only | [facility] | Arnaldo, | | | 2019 | | NEPHROLOGY [place] | [facility] | | | | | [address] | Student Liaison Officer | | | | | [address] | | | | | | [place] | | | | | | [address] | | | | | | [phone] | | | +--------+ + + + [...]
--- OUTSIDE RECORDS SUMMARY | ~2020-05-14 | XMS | Encounter Summary ---
Demographics + + + | Address | [address] | | | [place] [address] | + + + | Home Phone | | + + + | Preferred Language | Unknown | + + + | Marital Status | | + + + | Hoahaoism Affiliation | Unknown | + + + | Race | Unknown | + + + | Ethnic Group | Unknown | + + + Author + + + | Author | [facility] | | | and [place] | + + + | Organization | [facility] | | | [...] Team Providers + +------+ + | Care Panel Machine Operator Name | Role | Phone | [...] + + | 04/13/ | Telephone | [facility] | Zoë Butt, | Hospital Follow-up | | 2015 | | [facility] | PharmD [address] | | | | [address] | [place] [facility] | | | | | [place] [address] | [place] [address] | | | | | [phone] | [phone] | | +--------+ + + + + [...] Dr. Atkins on 04/14. No f/u with dairy processing equipment operator (Dr. Scott) needed per Dr. Milly Bond, PHARMD 04/15/2016 11:53 elephone [place] Zoë Reyes PharmD - 04/14/2016 2:50 PM [facility] Follow-Up Phone Call Date discharged: 04/09/16 Primary Diagnosis: Heart failure Patient not home. Left message with granddaughter again. Date of follow-up appointment with PCP: To be made; Dr. Ceballos 04/20 @0830 Electronically signed by: Zoë Butt PHARMFallon 04/14/2016 14:54 [facility] - 04/13/2016 1:41 PM [...]
--- OUTSIDE RECORDS SUMMARY | ~2020-05-14 | XMS | Encounter Summary ---
Demographics + + + | Address | [address] | | | [place] [address] | + + + | Home Phone | | + + + | Preferred Language | Unknown | + + + | Marital Status | | + + + | Moravian Affiliation | Unknown | + + + | Race | Unknown | + + + | Ethnic Group | Unknown | + + + Author + + + | Author | [facility] | | | and [place] | + + + | Organization | [facility] | | | [...] Team Providers + +------+ + | Care Cna Per Diem Name | Role | Phone | + [...] + + | 04/15/ | Telephone | [facility] | Valeriy Ceballos, | Other (question | | 2015 | | CARDIOLOGY [address] | about patient follow | | | | [place], | [place], | up) | | | | [place] [address] | [place] [address] | | | | | [phone] | [phone] | | | | | | | [...] she does not have to see a Associate Professor Of Art History. I was able to convi nce her [...] here she had to take her to [facility] for an infected IV site. They gave her antibiotics and asked her to return the next day . When she returned the next day they advised that she stay in the hospital due to her labs being so bad. Droi states that Alexsandra refused admission. She reports [...]
--- OUTSIDE RECORDS SUMMARY | ~2020-05-14 | XMS | Encounter Summary ---
Demographics + + + | Address | [address] | | | [place] [address] | + + + | Home Phone | | + + + | Preferred Language | Unknown | + + + | Marital Status | | + + + | Church Affiliation | Unknown | + + + | Race | Unknown | + + + | Ethnic Group | Unknown | + + + Author + + + | Author | [facility] | | | and [place] | + + + | Organization | [facility] | | | [...] Team Providers + +------+ + | Care Spa Host Name | Role | Phone | + +------+ + | Anthony Atkins DO | PCP | | + +------+ + Encounter Details +--------+ + + + + | Date | Type | Department | Care Team | Description | +--------+ + + + + | 07/11/ | Orders Only | [facility] | Conversion | | | 2013 | | NEPRHOLOGY [place] | Transaction, | | | | | [address] | Provider Unknown | | | | | [address] [place], [place] | | | | | | [address] | (Fax) | | | | | [phone] | | | +--------+ + + + [...]
[~2020-05-14 12:37] MED LIST: ASPIRIN EC81 MG PO; B-121000 MC2 PO; BACTRIM DS TAB1 EACH PO; CARVEDILOL12.5 MG PO; CARVEDILOL6.25 MG PO; CEPHALEXIN500 MG PO; CLINDAMYCIN HC150 MG PO; COREG3.125 MG PO; COREG6.25 MG PO; DOCUSATE SODIU250 MG PO; FERROUS GLUCON324 M1 PO; FERROUS SULFAT324 MG PO; FERROUS SULFAT325 MG PO; FUROSEMIDE20 MG PO; FUROSEMIDE80 MG PO; GLIPIZIDE XL5 MG PO; GLIPIZIDE5 MG PO; HYDROPHILIC120 GM TOP; LIPITOR20 MG PO; LISINOPRIL10 MG PO; LISINOPRIL5 MG PO; NICORETTE4 M1 BUCCAL; SIMVASTATIN20 MG PO; SYMBICORT 16010.2 GM INH; TORSEMIDE20 MG PO; VITAMIN C500 M1 PO; VITAMIN D35000 UNIT PO
--- NOTE | 2020-05-14 16:45 | NUR ---
PT ARRIVED FROM ER. REPORT RECEIVED FROM SAAD CHOUDHARY. PT UP TO COMODE AND TRANSFERED TO BED WITH 2 PERSON ASSIST. PT VOIDS 200ML, URINE SAMPLE SENT TO LAB. INTAKE ASSESSMENT DONE. PT DENIES MOST HISTORY PREVIOUSLY ENTERED INTO MEDICAL RECORD. PTS DAUGHTER AT BEDSIDE AND CONFIRMS HISTORY. IV FLUIDS STARTED. PT DEMONSTRATES USE OF CALL LIGHT. NO ADDIITONAL REQUESTS OR COMPLAINTS. CALL LIGHT WITHIN REACH. BED RAILS UP. WARM BLANKETS PROVIDED.
--- NOTE | 2020-05-14 17:47 | NUR ---
CALLED WITH UPDATE REGARDING PTS ABILITY TO URINATE (VOIDED 200 UPON ADMISSION TO MED/SURG). STATES TO HOLD SOTO CATHETER AT THIS TIME. ORDER ON HOLD. AWAITING BLOOD FOR ADMINISTRATION. DINNER ORDER PLACED. PTS DAUGHTER AT BEDSIDE. CALL LIGHT WITHIN REACH.
--- NOTE | 2020-05-14 18:08 | NUR ---
THIS RN TO ROOM TO CHECK ON PT. PT WATCHING TV AND WAITING DINNER ORDER. SCD'S IN PLACE. I.S. PROVIDED, USE DEMONSTRATED. PT REACHES 400ML. PT ENCOURAGED TO WORK ON I.S. NO ADDITIONAL REQUESTS OR COMPLAINTS. CALL LIGHT WITHIN REACH.
--- NOTE | 2020-05-14 18:36 | NUR ---
PT ADMITTED FROM ER THIS SHIFT FOR ANEMIA. 2 PERSON ASSIST UP TO BEDSIDE COMODE. PT ABLE TO VOID, OSTO CATHETER PLACEMENT ON HOLD. PT TOLERATING ROOM AIR, SHORT OF BREATH WITH ACITIVITY. PT BLOOD BANDED, BLOOD TRANSFUSION ORDERED PENDING TYPE AND CROSS. DAILY WEIGHT. UA SENT TO LAB. SOIDUM BICARB AT 125 INFUSING. EDUCATION DONE REGARDING LOW SODIUM DIET. SCD'S IN PLACE. I.S USE ENSURED. PT USES CALL LIGHT APPROPRATILY.
--- NOTE | 2020-05-14 18:54 | NUR ---
2ND IV NEEDED FOR BLOOD TRANSFUSION. IV STARTED IN RIGHT FORARM PER PROTOCOL. BRISK BLOOD RETURN NOTED WITH IV START. IV SALINE LOCKED AT THIS TIME. PT FINISHING DINNER, TOELRATED PROCEEDURE WELL. NO ADDITIONAL REQUESTS OR COMPLAINTS AT THIS TIME. CALL LIGHT WITHIN REACH.
--- NOTE | 2020-05-14 19:09 | NUR ---
PT CALL LIGHT ON. PT FINISHED WITH DINNER AND REPORTS FEELING "HOT." WARM BLANKETS REMOVED. PT ATE 50% OF DINNER WITH MINIMAL FLUID INTAKE. DINNER TRAY REMOVED. I/Os RECORDED. NO ADDITIONAL REQUESTS OR COMPLAINTS. CALL LIGHT WITHIN REACH.
--- NOTE | 2020-05-14 19:30 | NUR ---
RECEIVED REPORT FROM SAAD MCGUIRE. pt RESTING IN BED, BREATHING LABORED, REPORTED FEELING SOB. O2 SAT 99% ON ROOM AIR. DISCUSSED O2 FOR COMFORT. pt REFUSED AT THIS TIME. pt REPORTED BEING COLD PROVIDED WARM BLANKET. DISCUSSED BLOOD TRANSFUSION. ALL QUESTIONS ANSWERED. CALL LIGHT WITHIN REACH. CURTAIN OPEN TO NURSES STATION.
--- NOTE | 2020-05-14 20:19 | NUR ---
pt ASSESSMENT DONE. LUNGS COARSE IN THE BASES. BLOOD ARRIVED. DOUBLE VERIFIED WITH SAAD PIMENTEL. pt SOB BEFORE ON 2L O2 FOR COMFORT, SAT 99% ON ROOM AIR. VITALS DONE. DISCUSSED TRANSFUSION REACTION S/S. BLOOD STARTED. THIS RN REMAINED WITH pt FOR 15 PLUS MINUTES. VITALS DONE SLIGHT INCREASE IN BLOOD PRESSURE NOTED. REASSESSED LUNGS, NO CHANGES NOTED. CALL LIGHT WITHIN REACH. CURTAIN OPEN TO THE NURSES STATION.
--- NOTE | 2020-05-14 23:00 | NUR ---
pt RESTING IN CHAIR. LUNG SOUNDS NOW HAVE A FEW CRACKLES IN THE BASES, CLEARS WITH COUGH. pt REMAINS SOB, DENIES S/S OF INFUSION REACTION. FIRST UNIT OF BLOOD INFUSION COMPLETE. VITALS STABLE. SECOND UNIT OF BLOOD DOUBLE VERIFIED WITH PATRICIO NASH. INFUSION STARTED. THIS RN REMAINED AT BEDSIDE FOR FIRST 15 MINUTES. VITALS SIGNS REMAIN STABLE. pt RESTING IN CHAIR. CALL LIGHT WITHIN REACH.
--- NOTE | 2020-05-15 00:04 | NUR ---
ROUNDED ON pt RESTING IN BED WITH EYES CLOSED, RESPIRATIONS REGULAR. CALL LIGHT WITHIN REACH. BLOOD INFUSING.
--- NOTE | 2020-05-15 02:35 | NUR ---
UNIT 2 COMPLETED. NO S/S OF TRANSFUSION REACTION. ASSESSMENT DONE. CRACKLES IN BASES. pt UP TO BSC AND BACK TO BED 1PA. SOB REMAINS THE SAME. pt USES 2L O2 VIA NC AT TIMES FOR COMFORT. CALL LIGHT WITHIN REACH.
--- NOTE | 2020-05-15 03:10 | NUR ---
pt REPORTED A NECK ACHE, KRISTYN RN GAVE PRN PAIN MED (SEE MAR). pt THEN REQUESTED TO BE MOVED TO THE CHAIR. 1PA TO CHAIR. POSITIONED WITH PILLOWS. CALL LIGHT IN HAND.
--- NOTE | 2020-05-15 05:00 | NUR ---
CALL LIGHT ON. pt REQUESTED TO GO BACK TO BED. UP TO BSC. STANDING WEIGHT. BACK TO BED. pt MORE STEADY ON FEET. LUNG SOUNDS IMPROVED. AUSCULATED SOME CRACKLES. pt REPORTED THAT BREATHING IS IMPROVED. STILL REQUESTING O2 FOR COMFORT. ABLE TO SPEAK MORE WORDS BEFORE TAKING A BREATH. DENIES PAIN AT THIS TIME. SETTLED IN BED. NO FURTHER REQUESTS CALL LIGHT WITHIN REACH.
--- NOTE | 2020-05-15 05:11 | NUR ---
UPDATED MD ON pt CONDITION. OKAY TO RESTART FLUIDS.
--- NOTE | 2020-05-15 07:10 | NUR ---
REPORT RECEIVED FROM SAAD MORENO. PT RESTING ON RIGHT SIDE IN BED, RESPIRATIONS EVEN AND UNLABORED. BED RAILS UP. CALL LIGHT WIHTIN REACH. PT ALLOWED TO REST.
[2020-05-15] MEDS ORDERED: MOTRIN IB200 MG PO (08:07)
--- NOTE | 2020-05-15 08:51 | NUR ---
MORNING ASSESSMENT AND MEDICATION DUE. PT UP TO CHAIR EATING BREAKFAST. PT DENIES PAIN AND NAUSEA. ASSESSMENT DONE. LUNG SOUNDS CONTINUE TO BE CORSE IN BASES. I.S. USED. PT REACHES 500ML ON I.S. PT REPORTS "I CAN'T BREATH AT ALL WHEN IM' LYING DOWN." O2 STARTED LAST NIGHT PER PTS COMPLAINTS. PT WEANED TO ROOM AIR, TOLERATING ROOM AIR WITH O2 SATURATIONS ABOVE 92%. LABORED BREATHING NOTED. PT REPORTS "FEELING BETTER" BUT CONTINUES TO EXHIBIT WEAKNESS. MEDICATIONS GIVEN. PT VERBALIZES UNDERSTANDING OF FALL PRECATUTIONS. NO ADDITIONAL REQUESTS OR COMPLAINTS. CALL LIGHT WITHIN REACH.
--- NOTE | 2020-05-15 09:29 | NUR ---
SPOKE WITH PATIENT IN ROOM. PATIENT UP IN CHAIR EATING BREAKFAST. PATIENT LIVES ALONE CLOSE TO [facility] [place]. SHE STATES HER GRANDDAUGHTER COMES MANY TIMES A DAY AND HER DAUGHTER COMES EVERYDAY TO HELP HER. SHE PLANS TO RETURN HOME AND FAMILY WILL HELP HER MORE IF NEED. SHE USES A 4WW AT HOME AND HAS ONE AT THE [place] SHE USES. 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 SHE STATES SHE DOES NOT DRIVE BUT HAS NO PROBLEMS GETTING RIDES WHERE SHE NEEDS TO GO. FAMILY IS HELPING WITH SHOPPING ETC. SHE FEELS SHE HAS NO ISSUES AFFORDING MEDICATIONS, FOOD OR UTILITIES. SHE FEELS SAFE TO GO HOME. DISCUSSED THAT THERAPY WILL SEE HER TO MAKE SURE SHE CAN GET UP AROUND BEFORE GOING HOME. SHE AGREES. NO FURTHER QUESTIONS. CASE MANAGEMENT WILL CONTINUE TO FOLLOW.
--- NOTE | 2020-05-15 09:30 | NUR ---
PT CALL NURSES STATION TO REQUEST ASSISTANCE TO TOILET. PT SAID SHE DOES NOT LIKE THE BSC, PT ENCOURAGED TO AMBULATE INTO BATHROOM IF SHE WOULD LIKE. PT AMBULATED INTO BATHROOM TO VOID AND HAVE MED BM. SHE WAS ON ROOM AIR SHE BECAME SOB ON RETURN TO RECLINER, HER OXYGEN SATURATION 97% ON ROOM AIR. PT REQUEST OXYGEN TO BE PLACED SHE SAID "I FEEL DIZZY, I CANT BREATH GOOD" 1L OXYGEN PLACED FOR PT COMFORT AT THIS TIME.
--- NOTE | 2020-05-15 09:50 | NUR ---
THIS RN TO ROOM TO CHECK ON PT. PT UP TO CHAIR AND WORKING WITH OCCUPATINOAL THERAPY. PT WEANED BACK TO ROOM AIR. EDUCATION DONE WITH PT REAGARDING OXYGEN NEED. PT CONTINUES TO REPORTS SHORTNESS OF BREATH WITH AMBULATION AND WEAKNESS. PT DENIES ADDITIONAL REQUESTS OR COMPLAINTS. PT REMAINS ON ROOM AIR WITH O2 AT 97% AT THIS TIME. PT WORKING WITH OCCUPATIONAL THERAPY. NO ADDITIOANL REQUESTS OR COMPLAINTS. CALL LIGHT WITHIN REACH.
--- NOTE | 2020-05-15 11:45 | NUR ---
MED REC COMPLETE
--- NOTE | 2020-05-15 12:02 | NUR ---
NOON ASSESSMENT AND MEDICATION DUE. PT UP TO CHAIR. PT DENIES SHORNESS OF BREATH EXCEPT WHEN AMBULATING. PT DENIES PAIN AND NAUSEA. ASSESSMENT DONE. CRAKCLES NOTED IN LOWER LOBS OF LUNGS. CRACKELS IMPROVING TO LEFT LOWER LOBE. PT DEMONSTRATUES USE OF I.S. REACHING 500ML. PT REMAINS ON ROOM AIR WITH O2 SATURATIONS OF 97%. PT REMAINS UP TO CHAIR, EATING LUNCH. MEDICAITON GIVEN. NO ADDITIONAL REQUESTS OR COMPLAINTS AT THIS TIME. TELE DC'D PER MD ORDER. CALL SIRIA RAND.
--- NOTE | 2020-05-15 14:02 | NUR ---
NEW BAG IV FLUID HUNG ORDERED, SEE EMAR. IV SITE WNL. PT ASSISTED UP IN BED. EATS REGULAR LUNCH, NICK WELL. PT ALERT AND ORIENTED AND APPROPRIATE.
--- NOTE | 2020-05-15 14:22 | NUR ---
CONSULT RECEIVED TO ASSESS FOR MALNUTRITION. STARTED TALKING TO PATIENT AND THEN NURSING CAME IN TO HELP HER IN THE SHOWER. PATIENT'S APPETITE IS FAIR BOTH HERE AND HOME. SHE STATES SHE DIDN'T LIKE THE EGG ON HER EGG/VELASQUEZ BREAKFAST SANDWICH TODAY SO ALL SHE ATE WAS THE VELASQUEZ. SHE ATE ALL OF HER FRUIT AND IS SNACKING ON VANILLA YOGURT AT THE BEDSIDE. SHE SAID [place] ALL DAY, SHE IS NEVER HOME. ON THE WEEKENDS SHE STAYS IN A SUITE, SO SHE IS EATING AT THE [place]. THAT'S ALL I COULD GATHER BEFORE PATIENT GOING IN TO THE SHOWER. WHEN NURSING GOT HER UP, SHE DOESN'T LOOK EMACIATED OR SEVERE FAT LOSS. COULD SEE SOME MUSCLE IN HER QUADRACEPS. PATIENT'S BMI IS WNL AT 24.03. I DO NOT THINK SHE HAS SEVERE MALNUTRITION AT THIS TIME. SHE IS ON A 2 GM SODIUM DIET HERE AND AGREE TO CONTINUE WITH THIS DIET. PATIENT HAS TEETH AND NO ISSUES CHEWING OR SWALLOWING. WILL CONTINUE TO MONITOR.
--- NOTE | 2020-05-15 16:33 | NUR ---
AFTERNOON ASSESSMENT DUE. PT RESTING IN BED. PT REPORTS SHE WAS ABLE TO SLEEP "A LITTLE." ASSESSMENT DONE. LUNG SOUNDS CONTINUE TO SHOW CRACKELS IN BASES. I.S. USED. PT REACHES 400ML ON I.S. 1 PERSON ASSIST UP TO SHOWER. PT VOIDS AND HAS SMALL BOWEL MOVEMENT. BENNETT CARE DONE. PT SHOWERED. PT REFUSES SHAMPOO. FRESH GOWN PROVIDED. PT UP TO CHAIR. PT DENIES PAIN AND NAUSEA. MEDICATIONS GIVEN. BLOOD SUGAR TAKEN. WARM BLANKETS PROVIDED. PT DENIES ADDITIONAL REQUESTS OR COMPLAINTS. CALL SIRIA RAND.
--- NOTE | 2020-05-15 19:13 | NUR ---
PT HERE FOR ANEMIA. 2 UNITS OF PBRCs GIVEN LAST SHIFT. PT EXPRESSES SHE HAS INCREASED ENERGY THIS SHIFT AND IS ABLE TO ABMULATE TO RESTROOM WITH ONE PERSON ASSIST. PT TOLERATEING 60G CARB DIET WITH GOOD APPITITE. TELE #5 DC'D PER MD ORDER, PT REMAINED IN SINUS RTHYEM TH ROUGH THIS SHIFT. PT ON 2L O2 BY NC THROUGH LAST SHIFT FOR COMFORT. EDUCATION DONE WITH PT, PT VERBALIZES UNDERSTANDING AND MATINAINS O2 SATURATION ON ROOM AIR THIS SHIFT. SHOWER THIS SHIFT. PT UP TO CHAIR FOR MOST OF SHIFT. IV SODIUM BICARB DC'D. CRACKELS REMAIN IN BASES OF LUNGS, IV LASIX GIVEN WITH MINIMAL RESULTS. PT VOIDING QUANITY SUFFICIENT. PT USES CALL LIGHT APPROPRIATLY.
--- NOTE | 2020-05-15 19:40 | NUR ---
IN ROOM FOR REPORT, PT IS SLEEPING IN CHAIR. RR IS EVEN AND NONLABORED. CALL LIGHT IS CLOSE.
--- NOTE | 2020-05-15 20:40 | NUR ---
IN ROOM TO ASSESS PT AND ADMINISTER MEDICATIONS. PT DENIES PAIN AT THIS TIME. AND WOULD LIKE TO SLEEP IN THE RECLINER, SHE STATES IT IS HARD TO BREATHE LAYING DOWN IN BED. SHE IS ON RA AT THIS TIME AND DENIES SOB. NO EDEMA NOTED. WARM PACK GIVEN FOR PT'S NECK. SHE DENIES FURTHER NEEDS AT THIS TIME. CALL LIGHT IS CLOSE.
--- NOTE | 2020-05-15 20:50 | NUR ---
HELPED PT TO THE BATHROOM AND BACK TO THE CHAIR. COVERED HER UP WITH HER BLANKETS . BEDSIDE TABLE AND CALL LIGHT IN REACH.
--- NOTE | 2020-05-15 21:13 | EKG ---
[facility] [address] [place], [place] [address] Signed Normal sinus rhythm Cannot rule out Anterior infarct , age undetermined ST \T\ T wave abnormality, consider lateral ischemia Abnormal ECG When compared with ECG of 04-OCT-2016 08:45, T wave inversion no longer evident in Anterior leads Confirmed by SANAZ AMARAL DO ([id number]) on 05/15/2020 9:12:45 PM Electronically Signed By: SANAZ AMARAL DO 05/15/20 2113 PATIENT NAME: SHRUTHIVERNA Electrocardiogram DATE OF : [birth year] PHYSICIAN: SANAZ AMARAL DO REPORT #: [id number] REPORT IS CONFIDENTIAL AND NOT TO BE RELEASED WITHOUT AUTHORIZATION
--- NOTE | 2020-05-15 21:21 | NUR ---
GOT PT A WARM BLANKET PER HER REQUEST.SHE NEEDS NOTHING MORE AT THIS TIME.
--- NOTE | 2020-05-15 21:44 | NUR ---
IN ROOM TO ADMINISTER TYLENOL FOR BACK PAIN. PT DENIES FURTHER NEEDS. CALL LIGHT IS CLOSE.
--- NOTE | 2020-05-15 23:55 | NUR ---
PT IS RESTING WITH EYES CLOSED RR IS EVEN AND NONLABORED. CALL LIGHT IS CLOSE.
--- NOTE | 2020-05-16 00:07 | NUR ---
HELPED PT TO THE BATHROOM AND TO HER BED. BEDSIDE TABLE AND CALL LIGHT IN REACH. FRESH WATER GIVEN.
--- NOTE | 2020-05-16 01:28 | NUR ---
PT IS RESTING WITH EYES CLOSED, RR IS EVEN AND NONLABORED. CALL LIGHT IS CLOSE.
--- NOTE | 2020-05-16 03:13 | NUR ---
PT IS RESTING WITH EYES CLOSED, RR IS EVEN AND NONLABORED. CALL LIGHT IS CLOSE.
--- NOTE | 2020-05-16 05:09 | NUR ---
PT IS RESTING WITH EYES CLOSED, RR IS EVEN AND NONLABORED. CALL LIGHT IS CLOSE.
--- NOTE | 2020-05-16 05:37 | NUR ---
VITALS AND I&OS DONE AND CHARTED. GARBAGES EMPTIED. BEDSIDE TABLE AND CALL LIGHT IN REACH.
--- NOTE | 2020-05-16 07:14 | NUR ---
REPORT RECEIVED FROM SAAD LARA. PT UP TO CHAIR. RESTING WITH EYES CLOSED. RESPIRATIONS EVEN, RR = 20. CALL LIGHT WITHIN REACH. PT EASILY VIEWED FROM NURSES STATION.
--- NOTE | 2020-05-16 08:22 | NUR ---
MORNING ASSESSMENT AND MEDICATION DUE. PT UP TO CHAIR AND DENIES PAIN AND NAUSEA. PT REPORTS HUNGER AND HAS GOOD APPITITE FOR BREAKFAST. ASSESSMENT DONE. LUNG SOUNDS CORSE IN BASES. I.S. USED REACHING 500ML. OCCATIONAL COUGH NOTED. PT DENIES SHORTNESS OF BREATH. CMS INTACT. MEDICATION GIVEN (SEE MAR). PT DENIES ADDITIONAL REQUESTS OR COMPLAINTS. CALL LIGHT WITHIN REACH.
--- NOTE | 2020-05-16 09:14 | NUR ---
THIS RN TO ROOM TO CHECK ON PT. 1 PERSON ASSIST UP TO RESTROOM. PT VOIDS WITHOUT ISSUE. BENNETT CARE DONE. DEPENDS CHANGED. STANDING WEIGHT TAKEN. PT UP TO CHAIR. ICE WATER REFILLED. NO ADDITIONAL REQUESTS OR COMPLAINTS AT THIS TIME. CALL LIGHT WITHIN REACH.
--- NOTE | 2020-05-16 12:02 | NUR ---
NOON ASSESSMENT DUE. PT UP TO CHAIR AND READY FOR LUNCH. PT DENIES PAIN, NAUSEA AND SHORTNESS OF BREATH. ASSESSMENT DONE. CORSE LUNG SOUNDS IN LOWER LOBES. BLOOD SUGAR WITHIN RANGE. PT REPORTS HER APPITITE AND ENERGY ARE IMPROVING. VITALS TAKEN. PT EATING LUNCH. NO ADDITIONAL REQUESTS OR COMPLAINTS. CALL LIGHT WITHIN REACH.
--- NOTE | 2020-05-16 13:20 | NUR ---
PT CALL LIGHT ON. PT REQUESTS ASSISTANCE UP TO RESTROOM. PT VOIDS WITHOUT ISSUE. BENNETT CARE DONE. PT BACK TO CHAIR. MD TO BEDSIDE FOR ROUNDS. DAUGHTER PRESENT FOR DISCUSSION WITH MD. PT VERBALIZES UNDERSTANDING OF CONDITION AND PLAN OF CARE. I.S. USE DEMONSTRATED, PT REACHES 500ML. PT DENIES ADDITIONAL REQUESTS OR COMPLAINTS. CALL LIGHT WITHIN REACH.
--- NOTE | 2020-05-16 15:01 | NUR ---
PT CALL LIGHT ON. PT REPORTS FEELING UNCOMFORTABLE IN THE CHAIR. PT ENCOURAGED TO GET UP TO AMBULATE. PT AMBULATES WITH 1 PERSON STAND BY ASSIST X1 SHORT LAP IN LEE. PT REPORTS 4/10 PAIN IN BACK. SEE MAR FOR MEDICAITON GIVEN. DINNER ORDER PLACED. PT DENIES ADDITIONAL REQUESTS OR COMPLAINTS AT THIS TIME. CALL LIGHT WITHIN REACH.
--- NOTE | 2020-05-16 15:53 | NUR ---
AFTERNOON ASSESSMENT DUE. PT RESTING IN BED ON RIGHT SIDE. PT REPORTS PAIN HAS RESOLVED, NOW 0/10. LUNG SOUNDS CONTINUE TO SHOW CRACKLS IN BASES. I.S. USED, PT REACHES 500ML. COUGH AND DEEP BREATHING ENCOURAGED. PT DENIES NAUSEA. PT FINISHED WITH SNACK, PT REPORTS "MY APPTITIE IS A LOT BETTER." PT STATES "I'M GLAD THE DOCTOR HAD ME STAY ANOTHER DAY" HER ENERGY IS IMPROVING. FRESH ICE WATER PRVOIDED. NO ADDITIONAL REQUESTS OR COMPLAINTS. CALL LIGHT WITHIN REACH.
--- NOTE | 2020-05-16 17:14 | NUR ---
INSULIN DUE. PT SITTING ON EDGE OF BED FOR DINNER. PT DENIES PAIN AND NAUSEA. PT EATING DINNER. INSULIN GIVEN. NO ADDITIONAL REQUESTS OR COMPLAINTS. CALL LIGHT WITHIN REACH. PT EASILY VIEWED FROM NURSES STATION.
--- NOTE | 2020-05-16 18:28 | NUR ---
PT HERE FOR ANEMIA. 1 PERSON ASSIST UP TO CHAIR AND RESTROOM THIS SHIFT. PT TOLERATING 60 GRAM CARB DIET WITH GOOD APPITITE. BLOOD SUGAR CHECKS WITH SLIDING SCALE INSULIN NEEDED AT DINNER. DAILY WEIGHT. CRACKELS CONTINUE IN LOWER LOBES OF LUNGS. PT CANNOT SLEEP OR REST WHILE FLAT, SLEEPS IN CHAIR OR WITH BED UPRIGHT. DAILY WEIGHT TKANE. PRN TYLENOL GIVEN FOR 4/10 PAIN IN BACK. PHYSICAL THERAPY THIS SHIFT AND PT UP TO AMBULATE WITH THI SRM. PT VODING QUANTITY SUFFICIENT. PT USES CALL LIGHT APPROPRIALTY.
--- NOTE | 2020-05-16 18:40 | NUR ---
PATIENT UP IN BED FINISHED WITH DINNER. VITALS AND I&OS CHARTED. CALL LIGHT IN REACH. NO OTHER NEEDS AT THIS TIME.
--- NOTE | 2020-05-16 19:15 | NUR ---
SHIFT REPORT RECEIVED FROM MAYNOR NASH. PT UP TO BR AND BRUSHING TEETH WITH BIENVENIDO CURTIS. PT UP IN CHAIR. NO OTHER NEEDS, CALL LIGHT IN REACH.
--- NOTE | 2020-05-16 21:48 | NUR ---
VITALS AND I&OS DONE AND CHARTED. HELPED PT TO THE BATHROOM AND BACK TO HER CHAIR. TWO WARM BLANKETS GIVEN. BEDSIDE TABLE AND CALL LIGHT IN REACH.
--- NOTE | 2020-05-16 22:17 | NUR ---
ASSESSMENT COMPLETED. CBG 84, NO COVERAGE NEED. LUNGS CLEAR, BOWEL TONES ACTIVE. IVs WNL, CDI, FLUSHED WELL. A&O X3. NO EDEMA NOTED. JELLO PROVIDED. NO OTHER NEEDS AT THIS TIME. CALL LIGHT IN REACH.
--- NOTE | 2020-05-16 23:34 | NUR ---
PT RESTING IN CHAIR, EYES CLOSED. RR EVEN, UNLABORED. CALL LIGHT IN REACH, DOOR OPEN.
--- NOTE | 2020-05-17 01:10 | NUR ---
PT RESTING IN CHAIR, EYES CLOSED. RR EVEN, UNLABORED. DOOR OPEN, CALL LIGHT IN REACH.
--- NOTE | 2020-05-17 02:09 | NUR ---
PT CALLED FOR ASSISTANCE TO THE RESTROOM. SHE IS NOW IN BED WITH WARM BLANKETS AND HAS FRESH ICEWATER AT BEDSIDE. SHE DENIES FURTHER NEEDS. CALL LIGHT IS CLOSE.
--- NOTE | 2020-05-17 03:11 | NUR ---
PT RESTING IN BED, EYES CLOSED. RR EVEN, UNLABORED. CALL LIGHT IN REACH.
--- NOTE | 2020-05-17 04:43 | NUR ---
PT AWAKE IN ROOM. ASSESSMENT COMPLETED. PT YANELI PAIN OR SOB. PT REQUESTS CURTAINS AND DOOR TO BE CLOSED, PROVIDED. NO OTHER NEEDS. CALL LIGHT IN REACH.
--- NOTE | 2020-05-17 05:38 | NUR ---
PT UP TO BR, SBA. PT TO CHAIR. DW, VS AND I&O COMPLETED. NO OTHER NEEDS AT THIS TIME. CALL LIGHT IN REACH.
--- NOTE | 2020-05-17 06:51 | NUR ---
PT HAS HAD SEVERAL EPISODES OF LOOSE STOOLS THIS AM, COMPLAINS OF MAS AND ABD PAIN 02/08. TYLENOL PROVIDED. HUONG STOCKROOM ATTENDANT IN BR WITH PT. NO OTHER NEEDS AT THIS TIME. CALL LIGHT IN REACH.
--- NOTE | 2020-05-17 07:15 | NUR ---
Helped pt to the restroom multiple times, pt had explosive diarrhea, helped pt clean up and put new breif on.
--- NOTE | 2020-05-17 07:52 | NUR ---
RECIEVED REPORT FROM ANUEL NASH. PT IS SITTING UP IN HER CHAIR AT THIS TIME AND IS REPORTING DIARRHEA THIS AM
--- NOTE | 2020-05-17 08:59 | NUR ---
SPOKE WITH DAUGHTER KOBE BY PHONE [phone] REGARDING POSSIBLE DISCHARGE HOME. DISCUSSED PATIENT IS STILL WEAK AND PHYSICAL THERAPY OUTPATIENT WILL BE ORDERED. SHE STATES PATIENT WILL STAY WITH HER FOR A WHILE AND THEY WILL MAKE SURE SHE GETS TO THERAPY. SHE STATES IF PATIENT DECIDES TO GO STRAIGHT HOME THEY WILL GO THERE AND STAY. SHE STATES HER MOTHER IS VERY INDEPENDENT AND STUBBORN. SHE ASKS WHEN SHE WILL BE READY TO GO, EXPLAINED THE DOCTOR STILL NEEDS TO SEE HER AND DECIDE IF SHE IS GOING FOR SURE TODAY, BUT THAT I WANTED TO MAKE SURE SHE HAS A GOOD PLAN IF SHE IS GOING TODAY OR TOMORROW. SHE ASSURES THE FAMILY IS PLANNING ON HELPING HER.
--- NOTE | 2020-05-17 09:38 | NUR ---
PATIENT IS HAVING COPIOUS AMOUNTS OF WATERY BROWN STOOL.
--- NOTE | 2020-05-17 09:45 | NUR ---
SPOKE WITH PATIENT IN ROOM. SHE IS UP IN CHAIR EATING BREAKFAST. SHE FEELS "BETTER". IS NOT SURE IF SHE FEELS READY TO GO HOME. DISCUSSED I SPOKE WITH HER DAUGHTER KOBE AND SHE STATES FAMILY WILL HELP HER AT DISCHARGE. DISCUSSED DR AMARAL HAS TO SEE HER TO DECIDE ABOUT DISCHARGE. DISCUSSED I JUST WANT TO MAKE SURE A PLAN IS IN PLACE I WON'T BE HERE OVER WEEKEND. PATIENT IS PLEASANT AND LAUGHS A LOT. DISCUSSED OUTPATIENT THERAPY MIGHT BE ORDERED. SHE WANTS TO GO TO [facility] OUTPATIENT IF SHE GOES. SHE STATES SHE HAS TO GO IN MORNINGS SO HER DAUGHTER CAN DRIVE HER. EXPLAINED THAT THEY WILL CONTACT THEM DIRECT TO SET UP APPOINTMENTS THAT WORK FOR HER. SHE HAS WALKERS AND FEELS SHE DOES NOT NEED ANYTHING TO GO HOME. CASE MANAGMENT WILL CONTINUE TO SEE NEEDED.
--- NOTE | 2020-05-17 10:41 | NUR ---
PROVIDED PT WITH 4MG OF ZOFRAN PER PT REQUEST FOR NAUSEA
--- NOTE | 2020-05-17 11:00 | NUR ---
RECEIVED PHONE CALL FROM DAUGHTER KOBE. SHE STATES SHE TALKED WITH PATIENT ABOUT REHAB. SHE STATES HER MOM STATED MAYBE SHE WOULD AGREE TO GO TO REHAB CENTER IF SHE NEEDED TOO. I TOLD HER I WOULD PASS THIS ALONG TO DR AMARAL AND THERAPIST.
--- NOTE | 2020-05-17 11:15 | NUR ---
DR AMARAL AND THERAPY DEPARTMENT STATES THAT THERAPY WORK INDICATES SHE DOES NOT NEED INPATIENT THERAPY AND PATIENT CAN DO OUTPATIENT WORK. DR AMARAL WILL SEE PATIENT AND DISCUSS THIS WITH HER.
--- NOTE | 2020-05-17 11:59 | NUR ---
DR. AMARAL IN TO SEE PATIENT AND DISCUSS DISCHARGE PLANS.
[2020-05-17] MEDS ORDERED: CARVEDILOL3.125 MG PO (12:11)
[2020-05-17] MEDS ORDERED: SODIUM BICARBO650 MG PO (12:15)
[2020-05-17] MEDS ORDERED: FERROUS SULFAT324 MG PO (12:15)
--- NOTE | 2020-05-17 12:41 | NUR ---
RECEIVED PHONE CALL FROM STAFF ON MEDICAL FLOOR. DR AMARAL HAS SEEN PATIENT AND THEY HAVE DECIDED ON OUTPATIENT THERAPY AT [facility]. I TOLD THEM I WILL CALL DAUGHTER KOBE WHO WILL BE THE ONE TAKING PATIENT HOME AND UPDATE HER. CALLED KOBE HAWKINS [phone] AND UPDATED HER. SHE STATES SHE WILL COME UP IN ABOUT AN HOUR TO TOP CLEANER PATIENT. SHE STATES SHE WILL BE ABLE TO PROVIDE TRANSPORTATION TO THERAPY APPOINTMENTS, SHE ASKED THAT I GIVE THEIR OFFICE HER CELL AND NAME TO SCHEDULE HER MOM DOESN'T ALWAYS HEAR HER PHONE OR ANSWER IF SHE DOESN'T RECOGNIZE NUMBER.
--- NOTE | 2020-05-17 13:32 | NUR ---
FAXED TO [facility] [phone] CLINICALS, ORDER. ON FACESHEET HIGHLIGHTED REQUEST FOR SCHEDULING TO GO THROUGH KOKO HAWKINS [phone]. FAX CONFIRMATION RECEIVED 05/17/20 111PM.
== END 2020-05-17 13:50 | disposition home or self-care (01) | DRG 292 ==
LOC: ED 12:37 → MS 16:16
PROVIDERS: ADMIT Student in an Organized Health Care Education/Training Program
PROC: 30233N1 Transfusion of Nonautologous Red Blood Cells into Peripheral Vein, Percutaneous Approach (ICD-10-PCS; principal; 2020-05-14)
DX: I13.0 Hypertensive heart and chronic kidney disease with heart failure and stage 1 through stage 4 chronic kidney disease, or unspecified chronic kidney disease (principal); I50.22 Chronic systolic (congestive) heart failure; E87.2 Acidosis; Z20.828 Contact with and (suspected) exposure to other viral communicable diseases; N18.3 Chronic kidney disease, stage 3 (moderate); E87.5 Hyperkalemia; N28.9 Disorder of kidney and ureter, unspecified; D63.1 Anemia in chronic kidney disease; I27.20 Pulmonary hypertension, unspecified; D50.9 Iron deficiency anemia, unspecified; Z79.82 Long term (current) use of aspirin; Z79.51 Long term (current) use of inhaled steroids; Z79.899 Other long term (current) drug therapy
CPT/HCPCS: 36415; 36430; 71045; 80048; 80053; 81001; 82728; 82803; 83540; 83735; 83880; 84100; 84466; 84484; 85025; 86850; 86900; 86901; 86920; 93005; 93010; 93306; 97162; 97166; 97535; 99285-25; C9803; J1815; J1940; J2405; J7030; P9016

== ENCOUNTER 2020-11-24 02:30 | Emergency (ER) | payer OTHER, MEDICARE ==
[~2020-11-24] VITALS: Ht 149.9 cm; Wt 47.6 kg
[~2020-11-24 02:30] MED LIST changes: +CARVEDILOL3.125 MG PO; +MOTRIN IB200 MG PO; +SODIUM BICARBO650 MG PO
== END 2020-11-24 03:33 | disposition home or self-care (01) ==
LOC: ED 02:30
DX: S01.01XA Laceration without foreign body of scalp, initial encounter (principal); W01.198A Fall on same level from slipping, tripping and stumbling with subsequent striking against other object, initial encounter; I50.9 Heart failure, unspecified; E11.9 Type 2 diabetes mellitus without complications; E78.00 Pure hypercholesterolemia, unspecified; D64.9 Anemia, unspecified; I25.2 Old myocardial infarction; Z87.891 Personal history of nicotine dependence
CPT/HCPCS: 12002; 99282-25

== ENCOUNTER 2020-11-28 15:15 | Emergency (ER) | payer OTHER, MEDICARE ==
[~2020-11-28] VITALS: Ht 149.9 cm; Wt 48.9 kg
--- OUTSIDE RECORDS SUMMARY | 2020-11-28 15:18 | XMS ---
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 Reece has no Care Guidelines for this patient. Irasema VISIT COUNT (12 MO.) [facility] TOTAL 4 NOTE: Visits indicate total known visits. ED/C VISIT TRACKING (12 MO.) [facility]28[facility]2020 15:16 [facility] [place] [facility] Emergency COMPLAINT: - RIGHT SIDE RIB PAIN, FALL 11/26/2020 16:16 [facility] Emergency DIAGNOSES: - Contusion of right front wall of thorax, initial encounter - Pain - Unspecified fall, initial encounter - Fall - rib pain, fall 11/24/2020 02:31 [facility] TYPE: Emergency COMPLAINT: - GROUND LEVEL FALL, HIT HEAD DIAGNOSES: - Heart failure, unspecified - Fall on same level from slipping, tripping and stumbling with subsequent striking against other object, initial encounter - Laceration without foreign body of scalp, initial encounter - Type 2 diabetes mellitus without complications - Old myocardial infarction - Anemia, unspecified - Personal history of nicotine dependence - Pure hypercholesterolemia, unspecified 05/14/2020 12:39 [facility] TYPE: Emergency COMPLAINT: - DIZZINESS/SOB/WEAKNESS INPATIENT VISIT TRACKING (12 MO.) 05/14/2020 16:16 [facility] [place] TYPE: Medical Surgical COMPLAINT: - ANEMIA DIAGNOSES: - Contact with and (suspected) exposure to other viral communicable diseases - Pulmonary hypertension, unspecified - Other intermediate (current) drug therapy - Chronic kidney disease, stage 3 (moderate) - Anemia, unspecified - Anemia in chronic kidney disease - Contact with and (suspected) exposure to other viral communicable diseases - Iron deficiency anemia, unspecified - Hyperkalemia - Acidosis - supervisor intermediates (current) use of inhaled steroids - Hypertensive heart and chronic kidney disease with heart failure and stage 1 through stage 4 chronic kidney disease, or unspecified chronic kidney disease - Iron deficiency anemia, unspecified - Hyperkalemia - supervisor intermediates (current) use of aspirin - Other supervisor intermediates (current) drug therapy - Hypertensive heart and chronic kidney disease with heart failure and stage 1 through stage 4 chronic kidney disease, or unspecified chronic kidney disease - Anemia in chronic kidney disease - Chronic systolic (congestive) heart failure - Disorder of kidney and ureter, unspecified - Chronic kidney disease, stage 3 (moderate) - Acidosis - Pulmonary hypertension, unspecified - residential (current) use of aspirin - Disorder of kidney and ureter, unspecified - Chronic systolic (congestive) heart failure - supervisor intermediates (current) use of inhaled steroids [email or web address]
[2020-11-28] MEDS ORDERED: HYDROCODON-ACE1 EA10 PO (15:49)
[2020-11-28] MEDS ORDERED: COLACE100 MG PO (15:49)
== END 2020-11-28 16:30 | disposition home or self-care (01) ==
LOC: ED 15:15
DX: S22.059A Unspecified fracture of T5-T6 vertebra, initial encounter for closed fracture (principal); S22.41XA Multiple fractures of ribs, right side, initial encounter for closed fracture; W01.198A Fall on same level from slipping, tripping and stumbling with subsequent striking against other object, initial encounter; I50.9 Heart failure, unspecified; E11.9 Type 2 diabetes mellitus without complications; E78.00 Pure hypercholesterolemia, unspecified; D64.9 Anemia, unspecified; I25.2 Old myocardial infarction; Z87.891 Personal history of nicotine dependence
CPT/HCPCS: 71045; 99283-25

== ENCOUNTER 2020-12-12 17:47 | Emergency (ER) | payer MEDICARE, OTHER ==
[~2020-12-12] VITALS: Ht 149.9 cm; Wt 49.9 kg
[~2020-12-12 17:47] MED LIST changes: +COLACE100 MG PO; +HYDROCODON-ACE1 EA10 PO
--- OUTSIDE RECORDS SUMMARY | 2020-12-12 17:50 | XMS ---
PreManage Notification: VERNA HAWKINS Security Philosophy Instructor Events No recent Security Events currently on file CRITERIA MET - [facility] - 2 Visits in 30 Days CARE PROVIDERS [facility] 11/29/2020-[facility] PHONE: [phone] Reece has no Care Guidelines for this patient. Care History Medical/Surgical 11/29/2020 [facility] - PATIENT IS [facility] ELIGIBLE, \T\middot;\T\nbsp; PLEASE REFER PATIENT TO [facility] FOR NON EMERGENT MEDICAL NEEDS. \T\middot;\T\nbsp; [facility] CAN SEE PATIENTS SAME DAY FOR APTS IF PATIENT CALLS FIRST THING IN THE MORNING. E.D. VISIT COUNT (12 MO.) [address] [facility]ke[facility] [address] [facility] TOTAL 5 NOTE: Visits indicate total known visits. ED/UCC VISIT TRACKING (12 MO.) 12/12/2020 17:[address] [facility] [address] [facility] [place] TYPE: Emergency COMPLAINT: - N/V 11/28/2020 15:16 [facility] [place] TYPE: Emergency COMPLAINT: - RIGHT SIDE RIB PAIN, FALL DIAGNOSES: - Pure hypercholesterolemia, unspecified - Multiple fractures of ribs, right side, initial encounter for closed fracture - Unspecified fracture of T5-T6 vertebra, initial encounter for closed fracture - Anemia, unspecified - Type 2 diabetes mellitus without complications - Fall on same level from slipping, tripping and stumbling with subsequent striking against other object, initial encounter - Personal history of nicotine dependence - Heart failure, unspecified - Old myocardial infarction 11/26/2020 16:16 [facility] Mónica Mckeon [place] TYPE: Emergency DIAGNOSES: - Contusion of right front wall of thorax, initial encounter - Pain - Unspecified fall, initial encounter - Fall - rib pain, fall 11/24/2020 02:31 [facility] [place] TYPE: Emergency COMPLAINT: - GROUND LEVEL FALL, [...] - Pure hypercholesterolemia, unspecified 05/14/2020 12:39 [facility] [place] TYPE: Emergency COMPLAINT: - DIZZINESS/SOB/WEAKNESS INPATIENT VISIT TRACKING (12 MO.) 05/14/2020 16:[address] [facility] 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 - Hypertensive heart and chronic kidney disease with heart failure and stage 1 through stage 4 chronic kidney disease, or unspecified chronic kidney disease - Iron deficiency anemia, unspecified - Hyperkalemia - buttermilk drier operator (current) use of aspirin - Other terminal carman (current) drug therapy - Hypertensive heart and chronic kidney disease with heart failure and stage 1 through stage 4 chronic kidney disease, or unspecified chronic kidney disease - Anemia in chronic kidney disease - Chronic systolic (congestive) heart failure - Disorder of kidney and ureter, unspecified - Chronic kidney disease, stage 3 (moderate) - Acidosis - Pulmonary hypertension, unspecified - [facility] (current) use of aspirin - Disorder of kidney and ureter, unspecified - Chronic systolic (congestive) heart failure - [facility] (current) use of inhaled steroids [email or web address]
[2020-12-12] MEDS ORDERED: PAIN RELIEF325 M1 PO (18:22)
[2020-12-12] MEDS ORDERED: VITAMIN D350 MC4 PO (18:23)
[2020-12-12] MEDS ORDERED: COREG6.25 MG PO (18:24)
[2020-12-12] MEDS ORDERED: ACETAMINOPHEN-C1 TAB PO (18:24)
[2020-12-12] MEDS ORDERED: ZOFRAN4 MG PO (21:52)
--- NOTE | 2020-12-13 15:44 | EKG ---
[facility] [address] [place] [address] Signed Normal sinus rhythm with sinus arrhythmia Cannot rule out Anteroseptal infarct (cited on or before 14-MAY-2020) T wave abnormality, consider lateral ischemia Abnormal ECG When compared with ECG of 14-MAY-2020 13:16, Questionable change in initial forces of Septal leads Confirmed by SANAZ AMARAL DO ([id number]) on 12/13/2020 3:44:23 PM Electronically Signed By: SANAZ AMARAL DO 12/13/20 1544 PATIENT NAME: VERNA HAWKINS Electrocardiogram DATE OF : [birth year] PHYSICIAN: SANAZ AMARAL DO REPORT #: [id number] REPORT IS CONFIDENTIAL AND NOT TO BE RELEASED WITHOUT AUTHORIZATION
== END 2020-12-12 22:06 | disposition home or self-care (01) ==
LOC: ED 17:47
DX: K29.00 Acute gastritis without bleeding (principal); E87.5 Hyperkalemia; Z79.899 Other long term (current) drug therapy; Z20.822 Contact with and (suspected) exposure to COVID-19; I11.0 Hypertensive heart disease with heart failure; I50.9 Heart failure, unspecified; E11.9 Type 2 diabetes mellitus without complications; E78.00 Pure hypercholesterolemia, unspecified; D64.9 Anemia, unspecified; Z87.891 Personal history of nicotine dependence
CPT/HCPCS: 71046; 80048; 80053; 81001; 83690; 84484; 85025; 93005; 93010; 96374; 99284-25; C9803; J2405; J7040; U0003